=== PATIENT | male | born 1985 | race Caucasian/White ===

== ENCOUNTER 2021-03-15 16:19 | Inpatient (IN) | payer OTHER, MEDICAID, SELFPAY ==
--- NOTE | ~2021-03-15 | XR_ITS ---
EXAMINATION: XR CHEST CLINICAL INFORMATION: Chest and lung pain COMPARISON: None TECHNIQUE: 2 views of the chest were obtained. FINDINGS: The cardiac and mediastinal contours are normal. The patient is rotated to the right. The lungs are well inflated. There is increased attenuation of the left upper and mid lung compared to the right side. This is not appreciated on the lateral view and may be related to patient positioning. The lungs are otherwise clear. There is no pleural effusion or pneumothorax. Bony structures are unremarkable. XR/XR chest 2V IMPRESSION: Well-inflated lungs. Asymmetric increased attenuation of the left upper and midlung, question artifactual related to patient positioning. Otherwise unremarkable exam.
[2021-03-15 16:51] VITALS: BP 120/82; BP 148/73; PULSE 92; PULSE 93; RESP 18; TEMP 36.6; O2SAT 100; BMI 27.6
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
[2021-03-15 17:41] LABS: MANUAL DIFF FLAG NO
[2021-03-15 17:44] LABS: Basophils Percent Auto 0.3 % (0-2); Eosinophils Absolute Auto 0.1 X10*3/uL (0.0-0.4); Eosinophils Percent Auto 1.3 % (0-4); Hematocrit 42.5 % (42-52); Hemoglobin 14.9 g/dl (14.0-18.0); Imm Gran Abs Auto 0.03 X10*3/uL (0.00-0.03); Imm Gran Pct Auto 0.3 % (0.0-0.4); Lymphocytes Percent Auto 20.8 % (20-40); Mean Corpuscular HGB Conc 35.1 g/dl (31.0-36.0); Mean Corpuscular Hemoglobin 30.1 pg (27.0-33.0); Mean Corpuscular Volume 85.9 fL (80-98); Mean Platelet Volume 9.8 fL (9.4-12.4); Monocytes Absolute Auto 0.8 X10*3/uL (0.1-1.2); Monocytes Percent Auto 8.7 % (2-11); Neutrophils Absolute Auto 6.5 X10*3/uL (2.0-8.3); Neutrophils Percent Auto 68.6 % (45-73); Platelet Count 219 X10*3/uL (160-400); Red Blood Count 4.95 X10*6/uL (4.60-5.80); Red Cell Distribution Width 12.3 % (11.0-16.0); White Blood Count 9.5 X10*3/uL (4.8-10.8)
[2021-03-15 18:04] LABS: Amphetamine Screen Urine Not Detected (Not Detect); Barbiturates, Urine Not Detected (Not Detect); Benzodiazepines Screen Urine Not Detected (Not Detect); Cannabinoid Screen Urine Not Detected (Not Detect); Cocaine Screen Urine Not Detected (Not Detect); Opiate Screen Urine Not Detected (Not Detect); Phencyclidine Screen Urine Not Detected (Not Detect)
[2021-03-15 18:12] LABS: Anion Gap 14 (12-20); Blood Urea Nitrogen 10 mg/dL (9-16); Calcium 9.2 mg/dL (8.4-10.2); Carbon Dioxide 23 mmol/L (22-29); Chloride 107 mmol/L (96-108); Creatinine Clr Calc Pharmacy 129.8; Estimated Glomerular Filt Rate > 60; Ethanol < 10 mg/dL; Glucose Random 85 mg/dL (60-115); Potassium 3.5 mmol/L (3.3-5.1); Sodium 140 mmol/L (135-145)
[2021-03-15 18:14] LABS: Acetaminophen LAB < 1 mcg/mL (<30)
[2021-03-15 18:15] LABS: Salicylate < 5.0 mg/dL (15-30)
[2021-03-15 18:23] LABS: COVID-19 Test Negative (Negative); IDNOW Serial# 08D9AD1C
[2021-03-15 18:46] VITALS: BP 103/69; PULSE 76; RESP 14; TEMP 36.5; O2SAT 98
--- NOTE | 2021-03-15 18:50 | PC.NURSE ---
patients mother called and stated 6 weeks ago patient was inpatient at [facility] in past did well on rsiperdal when dc'ed he was on abilify 10mg daily, haldol 5mg at HS, cogentin 1mg at HS, and prozac 60mg daily
--- NOTE | 2021-03-15 21:50 | MHC.CARE ---
[facility] unable to send a clinician to complete evaluation. CARE team contacted [facility] centrifugal supervisor to take over the case and requested that [facility] be notified. This comic writer will meet with pt for assessment shortly.
--- NOTE | 2021-03-16 00:27 | MHC.CARE ---
CARE team evaluation complete, assessment to follow. Disposition is for inpatient psychiatric treatment. ED provider is in agreement with plan of care. Sect 12a is in chart for safety and containment pending facility admission. Pt will be admitted on Sun03/16/21.
--- NOTE | 2021-03-16 00:37 | PC.NURSE ---
Patient in his room, remained isolated in his room, no distress observed/reported, Care team assessed the patient, disposition section 12 inpatient bed search, med rec completed but needs reviewed by psychiatrist in the morning, VSS, will continue to monitor.
[2021-03-16 00:42] VITALS: BP 119/80; PULSE 75; RESP 16; O2SAT 98
[2021-03-16 05:04] LABS: Glucose Urine UA NEG (NEG); Leukocyte Esterase Urine NEG (NEG); Nitrite Urine NEG (NEG); Urine Blood NEG (NEG); Urine Ketones 15 MG/DL (NEG); Urine Protein NEG (NEG-TRACE)
[2021-03-16 05:05] LABS: Appearance Urine CLEAR; Color Urine YELLOW
--- NOTE | 2021-03-16 06:42 | PC.NURSE ---
Patient slept through the night, no distress observed/reported, OOB x 2 bathroom use and back, no behavioral concerns, Care team assessed the patient, [facility] possible [facility] in the morning, VSS, will continue to monitor.
--- NOTE | 2021-03-16 08:14 | PC.NURSE ---
report taken from lisbeth wilks pt here as sec 12 bed search d/t delusions/decompensation/med non compliance. ambulating in [facility] in behavioral control, asking for water. tolerating po w/o issue. wctm for dc needs.
--- NOTE | 2021-03-16 11:58 | PC.NURSE ---
Report received, currently in room, pacing, no behavioral concerns. Awaiting transfer to [facility].
[2021-03-16 14:00] VITALS: BP 125/83; PULSE 92; RESP 18; TEMP 36.8; O2SAT 97
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
--- NOTE | 2021-03-16 18:52 | PC.ADMIT ---
35 year old male admitted from the ED, DX: delusional and paranoid with evidence of thought blocking and disorganized behavior. 15mins safety check. Smoker and drinker, not able to elaborate the last time. Tox negative. Patient appears well groomed, engages well in conversation with short answers. No agitation but appears restless at the time of assessment. Patient denies the urge to harm self or others, denies hallucinations. Patient has past suicide attempt, tend to isolate and avoid interaction. Non-complaint with meds. Speech normal rate, tone, volume, kiara. Patient was calm and cooperative with admission process. Stating when when i get erratic its a sign that i am going to get agitated . Patient reports intermittent acid reflux/abdominal discomfort but denies any issues at this time. Patient found pacing the halls.
[2021-03-16] MEDS: HaloperidoL 5 MG TABLET PO (20:31)
[2021-03-16] MEDS: Benztropine Mesylate 1 MG TABLET PO (20:31)
--- NOTE | 2021-03-17 | ECG_ITS ---
Test Reason : Pt reporting pain in chest/lungs Blood Pressure : / mmHG Vent. Rate : 112 BPM Atrial Rate : 112 BPM P-R Int : 136 ms QRS Dur : 082 ms QT Int : 344 ms P-R-T Axes : 057 -86 075 degrees QTc Int : 469 ms Sinus tachycardia Poor data quality When compared to the previous EKG of Poor data quality in current ECG precludes serial comparison Referred By: Allison Horne Electronically Signed By:Cody Corea
[2021-03-17 09:20] VITALS: PULSE 81; RESP 19; TEMP 36.7; O2SAT 98
--- NOTE | 2021-03-17 11:58 | HO.PSYCHPN ---
Subjective Subjective Date of Service: 03/17/21 Reason For Visit: PSYCHOSIS Interim History: per staff, no notable events overnight. slept. on NOV review, it appears pt took the haldol 5 mg dose at bedtime last night. on interview with pt he was found resting in his bed mid-morning, apparently awake. he denied having taken any medication. he reported he spoke with his parents last night, as a courtesy to let them know he was OK and in the hospital. he reported nothing else had changed for him and there was nothing to request. Mental Status Exam Mental Status Exam Narrative: appropriately dressed in hospital [facility]. no PMA/PMR. minimally cooperative with interview. speech decr in amount, mildly increased in latency. nml prosody and rate. thoughts linear and logical, avoidant of answering questions. did not directly divulge any delusional material. guarded. affect constricted. no SI/HI/AVH expressed. Diagnostics Vital Signs (24Hr): Vital Signs - 24 hr 03/16/21 14:00 03/17/21 09:20 Temperature 98.2 F 98.1 F Pulse Rate 92 81 Respiratory Rate 18 19 Blood Pressure 125/83 Pulse Oximetry 97 98 Body Mass Index 27.6 Labs Results: 03/15/21 17:35 03/15/21 17:35 Labs: Laboratory Results - last 48 hr 03/15/21 03/15/21 03/15/21 17:16 17:16 17:35 WBC RBC Hgb Hct MCV MCH MCHC RDW Plt Count MPV Immature Gran % (Auto) Neut % (Auto) Lymph % (Auto) [place] % (Auto) Eos % (Auto) Baso % (Auto) Lymph # (Auto) [place] # (Auto) Eos # (Auto) Baso # (Auto) Abs Immat Gran (auto) Absolute Neuts (auto) Absolute Nucleated RBC Nucleated RBC % (auto) Sodium Potassium Chloride Carbon Dioxide Anion Gap BUN Creatinine Estim Creat Clear Calc Estimated GFR Random Glucose Calcium Urine Color YELLOW Urine Appearance CLEAR Urine pH 7.0 Ur Specific [place] 1.020 Urine Protein NEG Urine Glucose (UA) NEG Urine Ketones 15 Urine Blood NEG Urine Nitrite NEG Ur Leukocyte Esterase NEG Salicylates Urine Opiates Screen Not Detected Acetaminophen < 1 Ur Barbiturates Screen Not Detected Ur Phencyclidine Scrn Not Detected Ur Amphetamines Screen Not Detected U Benzodiazepines Scrn Not Detected Urine Cocaine Screen Not Detected U Marijuana (THC) Screen Not Detected Ethyl Alcohol COVID-19 ([facility]) COVID-19 [employer] 03/15/21 03/15/21 03/15/21 17:35 17:35 17:35 WBC 9.5 RBC 4.95 Hgb 14.9 Hct 42.5 MCV 85.9 MCH 30.1 MCHC 35.1 RDW 12.3 Plt Count 219 MPV 9.8 Immature Gran % (Auto) 0.3 Neut % (Auto) 68.6 Lymph % (Auto) 20.8 [place] % (Auto) 8.7 Eos % (Auto) 1.3 Baso % (Auto) 0.3 Lymph # (Auto) 2.0 [place] # (Auto) 0.8 Eos # (Auto) 0.1 Baso # (Auto) 0.0 Abs Immat Gran (auto) 0.03 Absolute Neuts (auto) 6.5 Absolute Nucleated RBC 0.000 Nucleated RBC % (auto) 0.0 Sodium 140 Potassium 3.5 Chloride 107 Carbon Dioxide 23 Anion Gap 14 BUN 10 Creatinine 0.85 Estim Creat Clear Calc 129.8 Estimated GFR > 60 Random Glucose 85 Calcium 9.2 Urine Color Urine Appearance Urine pH Ur Specific [place] Urine Protein Urine Glucose (UA) Urine Ketones Urine Blood Urine Nitrite Ur Leukocyte Esterase Salicylates Urine Opiates Screen Acetaminophen Ur Barbiturates Screen Ur Phencyclidine Scrn Ur Amphetamines Screen U Benzodiazepines Scrn Urine Cocaine Screen U Marijuana (THC) Screen Ethyl Alcohol < 10 COVID-19 ([facility]) COVID-19 [employer] 03/15/21 03/15/21 17:35 17:35 WBC RBC Hgb Hct MCV MCH MCHC RDW Plt Count MPV Immature Gran % (Auto) Neut % (Auto) Lymph % (Auto) [place] % (Auto) Eos % (Auto) Baso % (Auto) Lymph # (Auto) [place] # (Auto) Eos # (Auto) Baso # (Auto) Abs Immat Gran (auto) Absolute Neuts (auto) Absolute Nucleated RBC Nucleated RBC % (auto) Sodium Potassium Chloride Carbon Dioxide Anion Gap BUN Creatinine Estim Creat Clear Calc Estimated GFR Random Glucose Calcium Urine Color Urine Appearance Urine pH Ur Specific [place] Urine Protein Urine Glucose (UA) Urine Ketones Urine Blood Urine Nitrite Ur Leukocyte Esterase Salicylates < 5.0 L Urine Opiates Screen Acetaminophen Ur Barbiturates Screen Ur Phencyclidine Scrn Ur Amphetamines Screen U Benzodiazepines Scrn Urine Cocaine Screen U Marijuana (THC) Screen Ethyl Alcohol COVID-19 ([facility]) Negative COVID-19 Clin Com See Note Medications Medications Current Medications Generic Name Dose Route Start Last Admin Trade Name Freq PRN Reason Stop Dose Admin Acetaminophen 650 mg 03/16/21 12:22 Acetaminophen 325 Mg Tablet PO Q6H PRN Headache/Pain Mild Scale (1-3) Al Hydroxide/Mg Hydroxide 30 ml 03/16/21 12:22 Magnesium Hydrox/Alum Hydrox 30 Ml Oral.Susp PO Q6H PRN Heartburn/Nausea Aripiprazole 10 mg 03/17/21 09:00 03/17/21 09:20 Aripiprazole 10 Mg Tablet PO Not Given DAILY FIDEL Benztropine Mesylate 1 mg 03/16/21 21:00 03/16/21 20:31 Benztropine Mesylate 1 Mg Tablet PO 1 mg BEDTIME FIDEL Administration Fluoxetine HCl 60 mg 03/17/21 09:00 03/17/21 09:20 Fluoxetine Hcl 20 Mg Capsule PO Not Given DAILY FIDEL Haloperidol 5 mg 03/16/21 21:00 03/16/21 20:31 Haloperidol 5 Mg Tablet PO 5 mg BEDTIME FIDEL Administration Hydroxyzine HCl 25 mg 03/16/21 12:22 Hydroxyzine Hcl 25 Mg Tablet PO BEDTIME PRN Anxiety Magnesium Hydroxide 30 ml 03/16/21 12:22 Milk Of Magnesia 30 Ml Oral.Susp PO DAILY PRN Constipation Trazodone HCl 50 mg 03/16/21 12:22 Trazodone Hcl 50 Mg Tablet PO BEDTIME PRN Insomnia Allergies Allergies Allergy/AdvReac Type Severity Reaction Status Date / Time olanzapine [OLANZAPINE] Allergy Severe FACIAL Unverified 05/20/20 19:42 SWELLING Assessment & Plan Assessment & Plan (1) Schizoaffective disorder: Status: Acute Code(s): F25.9 - Schizoaffective disorder, unspecified Assessment and Plan: restarted outpatient meds. pt reports he is refusing all medications but HS haldol 5 mg was charted as having been given on 03/16. collect collateral to determine dangerousness. Greater than 50% of the session was spent on counseling and/or coordination of care Reason for contiued inpatient stay Substantial Risk for: inability to function
[2021-03-17] MEDS: diphenhydrAMINE HCL 25 MG TABLET PO (19:21)
[2021-03-17] MEDS: Benztropine Mesylate 1 MG TABLET PO (21:11)
[2021-03-17] MEDS: Cyclobenzaprine HCl 10 MG TABLET PO (21:32)
--- NOTE | 2021-03-18 06:10 | PC.NURSE ---
STIFFNESS- Pt began to c/o stiffness in his neck and legs that gradually spread to other areas of his body. Peyton Mcallister APRN notified of patients complaints. Orders obtained, pt had a chest xray completed and an ekg; provider aware of results. Pt received Benadryl; 25 m po, cogentin 1 mg po. and flexeril 10 mg with no reported effects from him. However other staff including TW, have observed pt to be standing fairly straight without apparant distress.
[2021-03-18 08:20] VITALS: BP 104/79; PULSE 105; RESP 18; TEMP 36.7; O2SAT 97
--- NOTE | 2021-03-18 12:30 | P.PNPSI_ITS ---
Subjective Subjective Date of Service: 03/18/21 Reason For Visit: PSYCHOSIS Interim History: per staff, pt attending groups but not staying for very long. yesterdya c/o muscle stiffness and was given benadryl, cogentin, and flexeril. staff's perception was that he appeared to be affecting the stiffness as he moved differently when he was being observed than when he might reasonably bel ieve he was not being observed. he reported his concern that the stiffness was related to an episode from his home wherein he mixed bleach and windex. slept. on NOV review, it appears pt did NOT take the haldol 5 mg dose at bedtime last night. on interview with pt he was found resting in his bed mid-morning, apparently awake. he stated he was feeling fine and had no questions or complaints for MD. he reported nothing else had changed for him and there was nothing to request. Mental Status Exam Mental Status Exam Narrative: appropriately dressed in hospital allie, hair askew. no PMA/PMR. cooperative with interview. speech decr in amount, mildly increased in latency. nml prosody and rate. thoughts linear and logical, avoidant of answering questions. did not directly divulge any delusional material. guarded. affect constricted. no SI/HI/AVH expressed. Diagnostics Vital Signs (24Hr): Vital Signs - 24 hr 03/18/21 08:20 Temperature 98.1 F Pulse Rate 105 H Respiratory Rate 18 Blood Pressure 104/79 Pulse Oximetry 97 Body Mass Index 27.6 Labs Results: 03/15/21 17:35 03/15/21 17:35 Imaging Radiology Impressions: ITS Impressions Chest X-Ray 03/17/21 19:57 IMPRESSION: Well-inflated lungs. Asymmetric increased attenuation of the left upper and midlung, question artifactual related to patient positioning. Otherwise unremarkable exam. Medications Medications Current Medications Generic Name Dose Route Start Last Admin Trade Name Freq PRN Reason Stop Dose Admin Acetaminophen 650 mg 03/16/21 12:22 Acetaminophen 325 Mg Tablet PO Q6H PRN Headache/Pain Mild Scale (1-3) Al Hydroxide/Mg Hydroxide 30 ml 03/16/21 12:22 Magnesium Hydrox/Alum Hydrox 30 Ml Oral.Susp PO Q6H PRN Heartburn/Nausea Aripiprazole 10 mg 03/17/21 09:00 03/18/21 08:19 Aripiprazole 10 Mg Tablet PO Not Given DAILY FIDEL Benztropine Mesylate 1 mg 03/16/21 21:00 03/17/21 21:39 Benztropine Mesylate 1 Mg Tablet PO Not Given BEDTIME FIDEL Fluoxetine HCl 60 mg 03/17/21 09:00 03/18/21 08:20 Fluoxetine Hcl 20 Mg Capsule PO Not Given DAILY FIDEL Haloperidol 5 mg 03/16/21 21:00 03/17/21 21:39 Haloperidol 5 Mg Tablet PO Not Given BEDTIME FIDEL Hydroxyzine HCl 25 mg 03/16/21 12:22 Hydroxyzine Hcl 25 Mg Tablet PO BEDTIME PRN Anxiety Magnesium Hydroxide 30 ml 03/16/21 12:22 Milk Of Magnesia 30 Ml Oral.Susp PO DAILY PRN Constipation Trazodone HCl 50 mg 03/16/21 12:22 Trazodone Hcl 50 Mg Tablet PO BEDTIME PRN Insomnia Allergies Allergies Allergy/AdvReac Type Severity Reaction Status Date / Time olanzapine [OLANZAPINE] Allergy Severe FACIAL Unverified 05/20/20 19:42 SWELLING Assessment & Plan Assessment & Plan (1) Schizoaffective disorder: Status: Acute Code(s): F25.9 - Schizoaffective disorder, unspecified Assessment and Plan: restarted outpatient meds. pt reports he is refusing all medications but HS haldol 5 mg was charted as having been given on 03/16. has not taken psych meds since then. collect collateral to determine dangerousness. Greater than 50% of the session was spent on counseling and/or coordination of care Reason for contiued inpatient stay Substantial Risk for: harm to self, inability to function and rapid decompensation
[2021-03-18 18:00] VITALS: BP 113/62; PULSE 78; RESP 18; TEMP 36.6; O2SAT 99
[2021-03-18] MEDS: diphenhydrAMINE HCL 25 MG TABLET 50 MG PO (20:41)
[2021-03-19 08:14] VITALS: BP 114/68; PULSE 63; TEMP 37.1; O2SAT 97
--- NOTE | 2021-03-19 12:56 | HO.PSYCHPN ---
Subjective Subjective Date of Service: 03/19/21 Reason For Visit: PSYCHOSIS Subjective Notes: 3 Day Interim History: Patient won't discusse what brought him in and doesn't understand why his 3 day is not already up. He denies si/hi/pscychosis. Pacing in hallway- Medication Compliance: No Attending Groups: No Review of Systems Review of Systems denies any symptoms Mental Status Exam Mental Status Exam Narrative: pacing halls Patient Appearance: Unkempt Patient Orientation: Person, Place and Situation Level of Consciousness: Awake Patient Behavior: Passive and Resistive to Care Mood Description: Constricted Affect Description: Flat Patient Cognition Impaired: No Ability to Follow Directions: Fair Speech Pattern: Clear Hallucinations: None Thought Process: Intact and Goal Oriented Thought Content: positive for Perseveration, positive for Preoccupation and positive for Evasive Abnormal Motor Activity Signs and Symptoms: Restlessness Judgement: Poor Diagnostics Vital Signs (24Hr): Vital Signs - 24 hr 03/18/21 18:00 03/19/21 08:14 Temperature 97.9 F 98.7 F Pulse Rate 78 63 Respiratory Rate 18 Blood Pressure 113/62 114/68 Pulse Oximetry 99 97 Body Mass Index 27.6 also doubt this is accurate thin/ Labs Results: 03/15/21 17:35 03/15/21 17:35 Imaging Radiology Impressions: ITS Impressions Chest X-Ray 03/17/21 19:57 IMPRESSION: Well-inflated lungs. Asymmetric increased attenuation of the left upper and midlung, question artifactual related to patient positioning. Otherwise unremarkable exam. Medications Medications Current Medications Generic Name Dose Route Start Last Admin Trade Name Freq PRN Reason Stop Dose Admin Acetaminophen 650 mg 03/16/21 12:22 Acetaminophen 325 Mg Tablet PO Q6H PRN Headache/Pain Mild Scale (1-3) Al Hydroxide/Mg Hydroxide 30 ml 03/16/21 12:22 Magnesium Hydrox/Alum Hydrox 30 Ml Oral.Susp PO Q6H PRN Heartburn/Nausea Aripiprazole 10 mg 03/17/21 09:00 03/19/21 09:15 Aripiprazole 10 Mg Tablet PO Not Given DAILY FIDEL Benztropine Mesylate 1 mg 03/16/21 21:00 03/18/21 20:30 Benztropine Mesylate 1 Mg Tablet PO Not Given BEDTIME FIDEL Diphenhydramine HCl 50 mg 03/18/21 20:01 03/18/21 20:41 Diphenhydramine Hcl 25 Mg Tablet PO 50 mg BEDTIME [id number] PRN Administration Insomnia Fluoxetine HCl 60 mg 03/17/21 09:00 03/19/21 09:15 Fluoxetine Hcl 20 Mg Capsule PO Not Given DAILY FIDEL Haloperidol 5 mg 03/16/21 21:00 03/18/21 20:31 Haloperidol 5 Mg Tablet PO Not Given BEDTIME FIDEL Magnesium Hydroxide 30 ml 03/16/21 12:22 Milk Of Magnesia 30 Ml Oral.Susp PO DAILY PRN Constipation Trazodone HCl 50 mg 03/16/21 12:22 Trazodone Hcl 50 Mg Tablet PO BEDTIME PRN Insomnia Allergies Allergies Allergy/AdvReac Type Severity Reaction Status Date / Time olanzapine [OLANZAPINE] Allergy Severe FACIAL Unverified 05/20/20 19:42 SWELLING Assessment & Plan Assessment & Plan (1) Schizoaffective disorder: Status: Acute Code(s): F25.9 - Schizoaffective disorder, unspecified Assessment and Plan: continuing to refuse medications wants to be dced won't say why he went to police station - or what was discussed there after which he was sec 12 to hospital Greater than 50% of the session was spent on counseling and/or coordination of care Reason for contiued inpatient stay Substantial Risk for: inability to function and rapid decompensation
[2021-03-19 18:00] VITALS: BP 121/77; PULSE 67; RESP 16; TEMP 36.4; O2SAT 94
[2021-03-19] MEDS: diphenhydrAMINE HCL 25 MG TABLET 50 MG PO (21:01)
[2021-03-20] MEDS: diphenhydrAMINE HCL 25 MG TABLET 50 MG PO (01:31)
[2021-03-20 06:00] VITALS: BP 128/86; PULSE 82; RESP 16; TEMP 36.4; O2SAT 97
--- NOTE | 2021-03-20 13:03 | HO.PSYCHPN ---
Subjective Subjective Date of Service: 03/20/21 Reason For Visit: PSYCHOSIS Subjective Notes: Section 12B Healthcare Proxy: No Guardianship: No (hx of recurrently going off medications on dc) Medical Problems Affecting Mental Status: No Interim History: 35 WM who is angry and persistent though in physical control about what he sees as his custodial here- says he won't discussed police station visit and doesn't know why he is being held for that- on review of record - patient almost killed himself 3 months ago and since dc has stopped meds, not followed up and stayed in his apartment, not communicating with family, In the time he has been on unit has eaten , slept and paced on unit. Kept to himself showed no aggression and denied all symptoms- Would like to talk to ombudsman to complain today, wants access to his vinyl flooring installer today- but mostly will not give up rationalizing with me how I am illegally holding him hear as he has not shown any psychosis since arrival - Demanding dc today. Explaired to patient that he was now on 12b and that he would be given a vinyl flooring installer prior to court- he is angry about the time this will take. Medication Compliance: No (did take benadryl for sleep last night) Side effects from medications: No Attending Groups: No Mental Status Exam Mental Status Exam Patient Appearance: Appropriate Patient Orientation: Person, Place, Time and Situation Level of Consciousness: Awake Patient Behavior: Guarded, Restless, Anxious, Resistive to Care and Isolative Behavior Comments: refuses to let matter go and was not letting me move to other patients- nursing came to speak with patient, he continued to pace near nursing desk as provider was there- Mood Description: Angry Affect Description: Angry (feels it is unfair and illegal that he is here- held when he wants to be dced) Patient Cognition Impaired: No Ability to Follow Directions: Fair Speech Pattern: Perseverating and Rapid Memory Description: Intact Hallucinations: None (denying) Delusions: Present (? will not discuss police station - on record says he thinks he commited a crime) Thought Process: Linear Thought Content: positive for Perseveration (will only discuss being dced from hospital and his rights) Abnormal Motor Activity Signs and Symptoms: Muscle Rigidity and Restlessness Judgement: Poor Diagnostics Vital Signs (24Hr): Vital Signs - 24 hr 03/19/21 18:00 03/20/21 06:00 Temperature 97.5 F 97.6 F Pulse Rate 67 82 Respiratory Rate 16 16 Blood Pressure 121/77 128/86 Pulse Oximetry 94 97 Body Mass Index 27.6 Labs Results: 03/15/21 17:35 03/15/21 17:35 Imaging Radiology Impressions: ITS Impressions Chest X-Ray 03/17/21 19:57 IMPRESSION: Well-inflated lungs. Asymmetric increased attenuation of the left upper and midlung, question artifactual related to patient positioning. Otherwise unremarkable exam. Medications Medications Current Medications Generic Name Dose Route Start Last Admin Trade Name Freq PRN Reason Stop Dose Admin Acetaminophen 650 mg 03/16/21 12:22 Acetaminophen 325 Mg Tablet PO Q6H PRN Headache/Pain Mild Scale (1-3) Al Hydroxide/Mg Hydroxide 30 ml 03/16/21 12:22 Magnesium Hydrox/Alum Hydrox 30 Ml Oral.Susp PO Q6H PRN Heartburn/Nausea Aripiprazole 10 mg 03/17/21 09:00 03/20/21 08:44 Aripiprazole 10 Mg Tablet PO Not Given DAILY FIDEL Benztropine Mesylate 1 mg 03/16/21 21:00 03/19/21 21:09 Benztropine Mesylate 1 Mg Tablet PO Not Given BEDTIME FIDEL Diphenhydramine HCl 50 mg 03/18/21 20:01 03/20/21 01:31 Diphenhydramine Hcl 25 Mg Tablet PO 50 mg BEDTIME [id number] PRN Administration Insomnia Fluoxetine HCl 60 mg 03/17/21 09:00 03/20/21 08:44 Fluoxetine Hcl 20 Mg Capsule PO Not Given DAILY FIDEL Haloperidol 5 mg 03/16/21 21:00 03/19/21 21:09 Haloperidol 5 Mg Tablet PO Not Given BEDTIME FIDEL Magnesium Hydroxide 30 ml 03/16/21 12:22 Milk Of Magnesia 30 Ml Oral.Susp PO DAILY PRN Constipation Trazodone HCl 50 mg 03/16/21 12:22 Trazodone Hcl 50 Mg Tablet PO BEDTIME PRN Insomnia Allergies Allergies Allergy/AdvReac Type Severity Reaction Status Date / Time olanzapine [OLANZAPINE] Allergy Severe FACIAL Unverified 05/20/20 19:42 SWELLING Assessment & Plan Assessment & Plan (1) Schizoaffective disorder: Status: Acute Code(s): F25.9 - Schizoaffective disorder, unspecified Assessment and Plan: continuing to refuse medications wants to be dced won't say why he went to police station - or what was discussed there after which he was sec 12 to hospital hx recurrent hospitalizations , hx refusing medications, no insight and guarded but no clear psychosis evidence except he refuses to discuss police station- which I suspect if he opened up about his fear he commited a crime would unhinge his control. Greater than 50% of the session was spent on counseling and/or coordination of care Reason for contiued inpatient stay Substantial Risk for: inability to function, rapid decompensation and other
[2021-03-20 16:28] VITALS: BP 117/87; PULSE 68; RESP 16; TEMP 36.8; O2SAT 98
[2021-03-21 08:34] VITALS: BP 116/83; PULSE 99; RESP 18; TEMP 36.5; O2SAT 97
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
--- NOTE | 2021-03-21 11:47 | PC.NURSE ---
Pt aware and ready for discharge. Pt denies SI/HI, pt reports mood as good, states he is ready to go home. Pt declined to allow staff to make follow up appointments with his PCP, states he will make an appointment when he gets home. PT declined referal for therapy/psychiatric follow up, pt was given number for [facility] to contact when he is ready.
== END 2021-03-21 11:47 | disposition home or self-care (01) | DRG 750 ==
LOC: HO.ED 17:49 → HO.PADLT16 03-16 12:01
PROVIDERS: Nurse Practitioner Family; Admitting Provider Psychiatry & Neurology Psychiatry; Emergency Provider Emergency Medicine Emergency Medical Services; PCP Hospitalist; Visit Provider Psychiatry & Neurology Psychiatry
DX: F25.9 Schizoaffective disorder, unspecified (principal); Z91.14 Patient's other noncompliance with medication regimen; Z20.822 Contact with and (suspected) exposure to COVID-19; Z87.891 Personal history of nicotine dependence; Z79.899 Other long term (current) drug therapy
CPT/HCPCS: 36415; 71046; 80048; 80143; 80179; 80307; 81003; 82077; 85025; 87635; 93005; 99285; Q0163

== ENCOUNTER 2021-04-02 08:38 | Emergency (ER) | payer MEDICAID, SELFPAY ==
--- NOTE | 2021-04-02 08:41 | ED.PSYCH ---
HPI - Psych General Chief Complaint: Psychiatric Symptoms Stated Complaint: PSYCH EVAL Time Seen by Provider: 04/02/21 08:41 Source: patient and EMS Mode of arrival: EMS Limitations: no limitations History of Present Illness HPI Narrative: 35 yo male with hx of schizoaffective disorder states he is not on medications he went to the police departmetn today to confess crimes he did not commit and then feels he is being watched, brought to ED for psychiatric evaluation MD complaint: other (delusions) Onset (ago): day(s) Duration: constant History of same: Yes Relieving factors: none Exacerbating factors: none Context: not taking psychiatric medications Associated psychiatric symptoms: none Associated symptoms: denies other symptoms Treatments prior to arrival: none Related Data Home Medications Medication Instructions Recorded Confirmed aripiprazole 10 mg tablet 1 tab PO DAILY 03/15/21 04/02/21 benztropine 1 mg tablet 1 tab PO BEDTIME 03/15/21 04/02/21 fluoxetine 20 mg capsule 3 cap PO DAILY 03/15/21 04/02/21 haloperidol 5 mg tablet 1 tab PO BEDTIME 03/15/21 04/02/21 Allergies Allergy/AdvReac Type Severity Reaction Status Date / Time olanzapine [OLANZAPINE] Allergy Severe FACIAL Unverified 05/20/20 19:42 SWELLING Review of Systems Review of Systems: Constitutional : No Fever, No Chills ENT/Mouth : No Ear Pain, No Nasal Congestion, No sore throat Eyes: No Eye Pain, No Swelling, No Redness Cardiovascular : No Chest Pain, No SOB Respiratory : No Cough, No Sputum, No Dyspnea Gastrointestinal : No Nausea, No Vomiting, No Diarrhea, No Hematochezia, No Melena Genitourinary : No Dysuria, No Urinary Frequency, No Hematuria Musculoskeletal : No Myalgias Skin : No Skin Lesions, No rash Neuro : No Weakness, No Numbness, No Paresthesias, No Dizziness, No Headache Psych : positive Anxiety, positive Depression, no SI/HI Heme/Lymph: No Lymphadenopathy Endocrine : No Polyuria, No Polydipsia All other systems reviewed and are negative PMF Past Medical History Medical History Schizoaffective disorder Social History Social History Household Members: None Household Members Other:: 0 Housing: Apartment Do you presently have visiting nurse or other home services: No Unable to assess alcohol history related to: Unknown Patient Tobacco Use Status: Former Tobacco user Second Hand Smoke Exposure: No Substance Use Type: Marijuana Advance Directives: No Advance Directives Information Provided: No service: No Sexual orientation: Don't Know Physical Exam Vital Signs: Vital Signs: Last Vital Signs Temp 97.9 F 04/02/21 08:46 Pulse 93 04/02/21 08:46 Resp 16 04/02/21 08:46 BP 140/95 H 04/02/21 08:46 Pulse Ox 99 04/02/21 08:46 Body Mass Index 25.2 Appearance: Alert. Oriented X3. No acute distress. Eyes: Pupils equal, round and reactive to light. ENT: Pharynx normal. Neck: Normal inspection. Neck supple. CVS: Normal heart rate and rhythm. Pulses normal. Respiratory: No respiratory distress. Breath sounds normal. Abdomen: Soft and nontender. Skin: Skin warm and dry. Normal skin color. Normal skin turgor. Extremities: No lower extremity edema. No calf ttp Neuro: Oriented X 3. No motor deficit. No sensory deficit. CN 2-12 grossly intact Psych: seems to be responding to internal stimuli at times, no SI/HI, will not elaborate on comments he made at police department Course Course Course Narrative: Physician observation started at 1022am Patient placed in physician observation because the patient needed more time for [facility]N to evaluate the need for inpatient psychiatry. At the time observation was started the patient's vitals were stable, patient is alert and oriented appears to be responding to internal stimuli, Neuro: nonfocal, CV RRR, Lungs clear. Placed on section 12. signed out pending placement Discharge Plan Discharge Clinical Impression: Schizoaffective disorder Qualifiers: Schizoaffective disorder type: unspecified Qualified Code(s): F25.9 - Schizoaffective disorder, unspecified Prescriptions: No Action haloperidol 5 mg tablet 1 tab PO BEDTIME RF: 0 benztropine 1 mg tablet 1 tab PO BEDTIME RF: 0 fluoxetine 20 mg capsule 3 cap PO DAILY RF: 0 aripiprazole 10 mg tablet 1 tab PO DAILY RF: 0
[2021-04-02 08:46] VITALS: BP 140/90; BP 140/95; PULSE 90; PULSE 93; RESP 16; TEMP 36.6; O2SAT 97; O2SAT 99; BMI 25.2
[2021-04-02 09:22] LABS: MANUAL DIFF FLAG NO
[2021-04-02 09:23] LABS: Basophils Absolute Auto 0.1 X10*3/uL (0.0-0.2); Basophils Percent Auto 0.7 % (0-2); Eosinophils Absolute Auto 0.1 X10*3/uL (0.0-0.4); Eosinophils Percent Auto 1.7 % (0-4); Hematocrit 47.5 % (42-52); Hemoglobin 16.5 g/dl (14.0-18.0); Imm Gran Abs Auto 0.02 X10*3/uL (0.00-0.03); Imm Gran Pct Auto 0.3 % (0.0-0.4); Lymphocytes Absolute Auto 1.5 X10*3/uL (1.2-4.9); Lymphocytes Percent Auto 19.8 % (20-40); Mean Corpuscular HGB Conc 34.7 g/dl (31.0-36.0); Mean Corpuscular Hemoglobin 29.9 pg (27.0-33.0); Mean Corpuscular Volume 86.1 fL (80-98); Mean Platelet Volume 9.8 fL (9.4-12.4); Monocytes Absolute Auto 0.7 X10*3/uL (0.1-1.2); Neutrophils Absolute Auto 5.2 X10*3/uL (2.0-8.3); Neutrophils Percent Auto 68.5 % (45-73); Platelet Count 256 X10*3/uL (160-400); Red Blood Count 5.52 X10*6/uL (4.60-5.80); Red Cell Distribution Width 12.6 % (11.0-16.0); White Blood Count 7.6 X10*3/uL (4.8-10.8)
[2021-04-02 09:26] LABS: COVID-19 Test Negative (Negative)
[2021-04-02 09:57] LABS: Amphetamine Screen Urine Not Detected (Not Detect); Barbiturates, Urine Not Detected (Not Detect); Benzodiazepines Screen Urine Not Detected (Not Detect); Cannabinoid Screen Urine Not Detected (Not Detect); Cocaine Screen Urine Not Detected (Not Detect); Opiate Screen Urine Not Detected (Not Detect); Phencyclidine Screen Urine Not Detected (Not Detect)
[2021-04-02 09:57] LABS: Alanine Aminotransferase 14 U/L (0-40); Albumin Level 4.5 g/dL (3.5-5.0); Alkaline Phosphatase 82 U/L (39-117); Anion Gap 12 (12-20); Aspartate Amino Transferase 15 U/L (5-37); Bilirubin Direct 0.5 mg/dL (0.0-0.5); Bilirubin Total 1.6 mg/dL (0.0-1.0); Blood Urea Nitrogen 10 mg/dL (9-16); Calcium 9.6 mg/dL (8.4-10.2); Carbon Dioxide 27 mmol/L (22-29); Chloride 106 mmol/L (96-108); Creatinine Clr Calc Pharmacy 121.2; Estimated Glomerular Filt Rate > 60; Glucose Random 119 mg/dL (60-115); Potassium 3.6 mmol/L (3.3-5.1); Sodium 141 mmol/L (135-145); Total Protein 7.2 g/dL (6.5-8.0)
--- NOTE | 2021-04-02 10:57 | PC.NURSE ---
patient frequently pacing unit and at one point went in wrong room (room he was in 2 weeks ago) t/w asked patient if he'd like a medicine to help him relax and he declined stating i just have a lot on my mind, i don't want any medicine
--- NOTE | 2021-04-02 12:38 | PC.NURSE ---
patient paces in room and in unit wrapped in blanket, head in hands sometimes, sometimes arms crossed, made two loud yelp noises in room. t/w approached patient and redirected gently requesting change in volume if possible. patient a few minutes later was approached and t/w offered medicine, client declined
--- NOTE | 2021-04-02 20:54 | PC.NURSE ---
Patient is pacing in hallway without visible restlessness, in and out of his room multiple times, expressing need well, behavior appropriate and calm, coherent, refused HS medication by stating I am ok without meds, will continue to monitor.
[2021-04-03 01:52] VITALS: BP 133/87; PULSE 93; RESP 16; TEMP 36.4; O2SAT 97
--- NOTE | 2021-04-03 06:47 | PC.NURSE ---
Patient had over all 4 hours of sleep, pacing/snacking, no behavior concerns, thought process disorganized, refusing meds, attempted to educate patient about importance of medication, VSS, no distress observed/reported, will continue to monitor.
--- NOTE | 2021-04-03 07:48 | PC.NURSE ---
patient was awake upon my arrival, periodically pacing the unit, wrapped in a cloth blanket. patient appears in no acute distress
--- NOTE | 2021-04-03 15:51 | PC.NURSE ---
exhibits thought blocking, guarded. patient asks t/w why do you respond in that way? to request for arie anam its something i can do
[2021-04-03 16:53] VITALS: BP 142/93; PULSE 80; RESP 16; TEMP 36.3; O2SAT 96
--- NOTE | 2021-04-03 20:44 | PC.NURSE ---
Patient calm and quiet, mood pleasant, refused his medication, no distress observed/reported, VSS, will continue to monitor.
[2021-04-04 03:01] VITALS: BP 126/95; PULSE 73; RESP 18; TEMP 35.8; O2SAT 95
--- NOTE | 2021-04-04 05:17 | PC.NURSE ---
Patient slept 5 hours from 9p to 2a, pacing in hallway while awake in calm and non-disruptive manner, patient continues refusing his medication, VSS, no distress observed/reported, behavior appropriate, appetite good, hydrating well, elimination intact, disposition remains same, section 12 inpatient bed search, will continue to monitor.
--- NOTE | 2021-04-04 07:15 | PC.NURSE ---
patient was awake upon t/w's arrival to unit, patient remains pacing the floor at present, patient appears in no acute distress
[2021-04-04 07:47] VITALS: BP 123/93; PULSE 77; RESP 18; TEMP 36.5; O2SAT 99
--- NOTE | 2021-04-04 09:33 | ECG_ITS ---
Test Reason : MEDICAL CLEARANCE Blood Pressure : / mmHG Vent. Rate : 067 BPM Atrial Rate : 067 BPM P-R Int : 150 ms QRS Dur : 092 ms QT Int : 402 ms P-R-T Axes : 058 079 057 degrees QTc Int : 424 ms Normal sinus rhythm Normal ECG When compared with ECG of 17-MAR-2021 22:08, Vent. rate has decreased BY 45 BPM Referred By: Dolores Andre Electronically Signed By:Cody Corea
--- NOTE | 2021-04-04 10:36 | PC.NURSE ---
clients mom called and patient declined to talk to her. patient soon thereafter asked if the mother gave her name, which t/w told patient
--- NOTE | 2021-04-04 12:26 | PC.NURSE ---
Pt accepted to [facility] - awaiting nurse to nurse report and transfer
--- NOTE | 2021-04-04 12:50 | PC.NURSE ---
Pt continues to pace, attempted to redirect, unsuccessful, offered and declined PRN medications. Pt presents w/ flat affect, polite, vague. Awaiting nurse to nurse and transfer
--- NOTE | 2021-04-04 13:52 | PC.NURSE ---
per ULISES pt going to Dr. Magana on M3 room 319-1
--- NOTE | 2021-04-04 14:07 | PC.NURSE ---
Pt declined lunch, stated I'm not hungry right now, no thanks , offered other options, po fluids encouraged but declined.
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
--- NOTE | 2021-04-04 14:34 | PC.NURSE ---
Per Fouzia from the CARE team and Dr. Magana pt to be discharged home. Awaiting paperwork.
--- NOTE | 2021-04-04 14:43 | PC.NURSE ---
pending d/c. t/w expressed concern to CARE team Laxmi regarding d/c - pt is paranoid, pacing since 2 am and has no PO intake since this RN arrival at 11.
--- NOTE | 2021-04-04 15:17 | PC.NURSE ---
Pt noted to be pacing about the pod, eyeing the exit. Affect guarded. Declining food and drink. Awaiting dispo at this time as there is a question of d/c versus admission.
--- NOTE | 2021-04-04 16:19 | MHC.CARE ---
CARE Team is requested to initiate additional collateral contact with pt's family, as psychiatry is in the process of determining if pt meets criteria for sect 12b. Per pt's mother, last January pt was caught driving to [place] in order to purchase a firearm and attempt suicide, however, he was intercepted and hospitalized. Mother reports that pt has been admitted to inpt psych 10x in the past two years, every 6-8 weeks or so. She states, my son is in a deep delusion and he thinks the government is after him. Mother feels that pt should be admitted, but does not have any recent information relating to imminent risk to share. She states that pt has been extremely isolated and has not been answering phone calls. She states that he turned off his phone and stopped driving his car due to his delusional thinking. Family has reportedly spoken with a shore hand dredge or barge and would like to pursue guardianship and berman order, however they do not currently have the correct documentation from psychiatry. Mother reports that pt is non compliant with medication and does not follow up with outpatient providers. She reports that pt is typically stable for 4-6 weeks post inpt discarge, but then begins to decompensate. CARE team communicates this information to Dr. Magana, who met with pt earlier today. Per Dr. Magana, pt does not meet criteria for involuntary admission and julian therefore be discharged home. CARE Team met with pt earlier today and offered referral to outpatient providers, which pt declined.
--- NOTE | 2021-04-04 16:25 | MHC.CARE ---
Per psychiatrist Dr. Yaw Magana-- pt does not require inpt psychiatric admission at this time and is not a candidate for involuntary admission due to his low level of risk for harm to self or others at this time. Cleared for discharge home. Family updated. [facility] updated re: authorization for inpt psychiatric admission needing to be cancelled.
== END 2021-04-04 16:12 | disposition home or self-care (01) ==
PROVIDERS: Emergency Provider Emergency Medicine; PCP Hospitalist
DX: F25.9 Schizoaffective disorder, unspecified (principal); F22 Delusional disorders; F41.9 Anxiety disorder, unspecified; F32.9 Major depressive disorder, single episode, unspecified; Z79.899 Other long term (current) drug therapy; Z20.822 Contact with and (suspected) exposure to COVID-19
CPT/HCPCS: 36415; 80048; 80076; 80307; 85025; 87635; 93005; 99284; 99285

== ENCOUNTER 2021-04-06 10:19 | Inpatient (IN) | payer OTHER, SELFPAY ==
--- NOTE | 2021-04-06 | ECG_ITS ---
Test Reason : MEDICAL CLEAR Blood Pressure : / mmHG Vent. Rate : 071 BPM Atrial Rate : 071 BPM P-R Int : 154 ms QRS Dur : 086 ms QT Int : 398 ms P-R-T Axes : 068 084 067 degrees QTc Int : 432 ms Normal sinus rhythm Normal ECG When compared with ECG of 04-APR-2021 10:06, No significant change was found Referred By: Jeyson Solomon Electronically Signed By:Cody Corea
[2021-04-06 10:20] VITALS: BP 118/89; PULSE 114; RESP 17; TEMP 36.4; O2SAT 100; BMI 22.3
[2021-04-06 10:36] VITALS: BMI 24.5
--- NOTE | 2021-04-06 11:00 | ED_ITS ---
HPI - Psych General Chief Complaint: Psychiatric Symptoms Stated Complaint: crisis Time Seen by Provider: 04/06/21 10:52 Source: patient History of Present Illness HPI Narrative: This is a 35-year-old male who is a poor historian. The patient had apparently recently been admitted psychiatrically, and was discharged. The patient returned today and states that he has thought about killing himself for a few days. The patient often will not complete his sentences and therefore it is hard to get complete information from. He states that he was ?going to stop...? but does not finish the sentence. The patient denies wanting to hurt anybody else. He denies hearing any voices. He does admit to a prior history of suicide attempt but will not say the manner of the attempt. Denies any physical complaints such as headache or chest pain. Denies any known psy chiatric diagnosis and denies any significant past medical problems. Related Data Home Medications Medication Instructions Recorded Confirmed aripiprazole 10 mg tablet 1 tab PO DAILY 03/15/21 04/06/21 benztropine 1 mg tablet 1 tab PO BEDTIME 03/15/21 04/06/21 fluoxetine 20 mg capsule 3 cap PO DAILY 03/15/21 04/06/21 haloperidol 5 mg tablet 1 tab PO BEDTIME 03/15/21 04/06/21 Allergies Allergy/AdvReac Type Severity Reaction Status Date / Time olanzapine [OLANZAPINE] Allergy Severe FACIAL Verified 04/06/21 10:20 SWELLING Review of Systems Review of Systems: Yes Other (Limited due to patient's psychiatric condition) Constitutional: Constitutional: Denies fever(s) and Denies headache(s) ENT: Denies headache(s) Cardiovascular: Cardiovascular: Denies chest pain Gastrointestinal: Gastrointestinal: Denies abdominal pain Neurologic: Denies headache(s) and Denies Sensory deficit (Neuro) Psychiatric: Psychiatric: Reports homicidal ideation [facility] Past Medical History Medical History Schizoaffective disorder Social History Social History Household Members: None Household Members Other:: 0 Housing: Apartment Do you presently have visiting nurse or other home services: No Unable to assess alcohol history related to: Unknown Patient Tobacco Use Status: Former Tobacco user Second Hand Smoke Exposure: No Substance Use Type: Marijuana Advance Directives: Yes Advance Directives Information Provided: Yes Advance Directives on File: No Healthcare Proxy: No Guardian: No service: No Sexual orientation: Don't Know Physical Exam Vital Signs: Vital Signs: Last Vital Signs Temp 97.6 F 04/06/21 10:20 Pulse 109 H 04/06/21 12:29 Resp 16 04/06/21 12:29 BP 119/77 04/06/21 12:29 Pulse Ox 95 04/06/21 12:29 Body Mass Index 24.5 Const: General: cooperative, no acute distress, alert and anxious Nutritional Appearance: average body habitus Orientation/consciousness: patient oriented x3 HENMT: Head: Yes normal to inspection Eyes: General: appearance normal, both eyes and all related structures Eyelids: Yes eyelids normal Conjunctivae: conjunctivae normal Pupils: Equal, round and reactive pupils present Neck: Neck: Yes normal visual inspection and Yes supple Chest: Chest palpation & inspection: normal inspection of the chest Resp: Effort & Inspection: normal respiratory effort and able to speak in complete sentences Auscultation: clear to auscultation bilaterally Cardio: Rate: regular rate Rhythm: regular rhythm Heart sounds: S1 normal heart sound present, S2 normal heart sound present, no gallops, no murmurs and no rubs GI: Palpation (GI): Soft to palpation, nontender and Other GI palpation findings present (Non-distended) Auscultation: normal bowel sounds Skin: General skin exam: no rashes or lesions noted Neuro: General: patient oriented x3, no focal motor deficits and CN's II-XI intact bilaterally Cranial nerves: Yes Equal, round and reactive pupils pres ent Cognition (Neuro): normal cognition Motor exam (neuro): 5/5 motor strength present throughout Sensory Exam: No Sensory deficit (Neuro) Extrem: General: Yes normal to inspection and Yes no pedal edema Psych: Mental Status: other (Patient often stops mid-sentence, seems internally preoccupied) Speech and movement: Clear speech present Affect: normal affect, Sad affect present and Anxious affect present Attitude: cooperative MDM - Psych MDM Narrative Medical decision making narrative: Patient with suicidal ideation, inability complete sentences, appears debilitated by his psychiatric disease, is to be admitted to Psychiatry. Lab Data Labs: Lab Results 04/06/21 04/06/21 Range/Units 11:09 13:16 Urine Opiates Screen Not Detected (Not Detect) Ur Barbiturates Screen Not Detected (Not Detect) Ur Phencyclidine Scrn Not Detected (Not Detect) Ur Amphetamines Screen Not Detected (Not Detect) U Benzodiazepines Scrn Not Detected (Not Detect) Urine Cocaine Screen Not Detected (Not Detect) U Marijuana (THC) Screen Not Detected (Not Detect) COVID-19 ([facility]) Negative (Negative) COVID-19 Clin Com See Note Discharge Plan Discharge Clinical Impression: Schizoaffective disorder, Suicidal ideation Patient Disposition: Admitted As Inpatient
--- NOTE | 2021-04-06 11:14 | PC.NURSE ---
patient soon after meeting with doctor fervently repeatedly struck head on lockers and end of unit. patient stopped and walked self to room and allowed examiniation reddened area approximately dime-sized
[2021-04-06] MEDS: LORazepam 1 MG TABLET 2 MG PO (11:20)
[2021-04-06] MEDS: HaloperidoL 5 MG TABLET PO (11:20)
[2021-04-06 11:57] LABS: Amphetamine Screen Urine Not Detected (Not Detect); Barbiturates, Urine Not Detected (Not Detect); Benzodiazepines Screen Urine Not Detected (Not Detect); Cannabinoid Screen Urine Not Detected (Not Detect); Cocaine Screen Urine Not Detected (Not Detect); Opiate Screen Urine Not Detected (Not Detect); Phencyclidine Screen Urine Not Detected (Not Detect)
[2021-04-06 12:00] VITALS: BP 114/74; PULSE 84; RESP 15; O2SAT 94
[2021-04-06] MEDS: Ziprasidone Mesylate 20 MG VIAL 10 MG IM (12:11)
[2021-04-06 12:29] VITALS: BP 119/77; PULSE 109; RESP 16; O2SAT 95
[2021-04-06 13:36] LABS: COVID-19 Test Negative (Negative)
--- NOTE | 2021-04-06 16:27 | MHC.CARE ---
Patient assessed by CARE Team and determined to need inpatient psychiatric hospitalization
--- NOTE | 2021-04-06 18:28 | PC.NURSE ---
patient appears to remain asleep at present, awaits ekg and transfer to inpatient floor
--- NOTE | 2021-04-06 21:05 | PC.NURSE ---
Patient is s/p chemical restraint, sleeping most of the time, compliant with EKG, no distress observed/reported, respiration +/=/non-labored bilaterally, awaiting M5 admission, RN to RN completed, will continue to monitor.
[2021-04-06 22:40] VITALS: BP 100/71; PULSE 120; TEMP 36.1; O2SAT 96
--- NOTE | 2021-04-06 23:34 | PC.ADMIT ---
Pt is a 35 year old male who came into [facility] after reporting SI and increased depression. Self presented reported that he ran here to the ED. Had self harming behavior in the ED by banging his head on the lockers in the Pod. Delusional, appears to be responding to internal stimuli and very short in responses yes or no . Denies all psychiatric symptoms. Tox screen - negative. CV signed. Medications ordered and obtained by the subcontract administrator MD. 15 minute checks. In behavioral control since arrival on the unit.
--- NOTE | 2021-04-07 06:23 | PC.NURSE ---
0630: PT HEAD BANGING ON WALL OUTSIDE OF GROUP ROOM B. DIFFICULT TO REDIRECT. PT BECOMES IRRITATED WHEN SUGGESTIONS ARE MADE BY STAFF ALTERNATIVES TO RUNNING IN HALLWAY AND HEAD BANGING. REFUSING ANY MEDICATIONS. PT OBSERVER IN ATTENDANCE FOR PT SAFETY.
[2021-04-07 06:58] VITALS: BP 107/71; PULSE 132; RESP 18; TEMP 35.9; O2SAT 97
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
[2021-04-07] MEDS: LORazepam 1 MG TABLET 2 MG PO (10:33)
[2021-04-07] MEDS: HaloperidoL 5 MG TABLET PO (10:34)
--- NOTE | 2021-04-07 16:58 | PM.PSYDC ---
DS: Providers Provider Date of admission: 04/06/21 21:38 Primary care physician: Unknown Physician DS: Diagnosis Discharge Diagnosis (1) Schizoaffective disorder: Status: Acute DS: Medications Discharge Medications Home Medications: Home Medications Medication Instructions Recorded Confirmed aripiprazole 10 mg tablet 1 tab PO DAILY 03/15/21 04/06/21 benztropine 1 mg tablet 1 tab PO BEDTIME 03/15/21 04/06/21 fluoxetine 20 mg capsule 3 cap PO DAILY 03/15/21 04/06/21 haloperidol 5 mg tablet 1 tab PO BEDTIME 03/15/21 04/06/21 Data Data Completed and Pending Completed studies during hospitalization [Text1]: 04/06/21 04/06/21 11:09 13:16 Urine Opiates Screen Not Detected Ur Barbiturates Screen Not Detected Ur Phencyclidine Scrn Not Detected Ur Amphetamines Screen Not Detected U Benzodiazepines Scrn Not Detected Urine Cocaine Screen Not Detected U Marijuana (THC) Screen Not Detected COVID-19 ([facility]) Negative COVID-19 Clin Com See Note DS: Summary Time Spent with Patient Time attestation: Total time spent providing and/or coordinating discharge services: Discharge Plan Discharge Referrals: Physician,Unknown [Primary Care Provider] - 1 Week Discharge Medications: No Action haloperidol 5 mg tablet 1 tab PO BEDTIME RF: 0 benztropine 1 mg tablet 1 tab PO BEDTIME RF: 0 fluoxetine 20 mg capsule 3 cap PO DAILY RF: 0 aripiprazole 10 mg tablet 1 tab PO DAILY RF: 0
[2021-04-07 18:00] VITALS: BP 110/68; PULSE 104; TEMP 36.1
[2021-04-08] MEDS: FLUoxetine HCl 20 MG CAPSULE 60 MG PO (08:29)
[2021-04-08] MEDS: ARIPiprazole 10 MG TABLET PO (08:29)
--- NOTE | 2021-04-08 13:59 | P.PNPSI_ITS ---
Subjective Subjective Date of Service: 04/08/21 Reason For Visit: Psychosis Interim History: Patient lying in bed on approach. He set up and looked at mortgage underwriter and said he remembered meeting mortgage underwriter the day before. Appliance Adjuster asked how he is doing and what brought him to the hospital. He said ?I was in my head too much. ?Patient said he did not want to talk about it but was willing to expand that this is what made him feel suicidal. He said he no longer has suicidal ideation. Appliance Adjuster asked about patient and medications to which he said he really has not taken much of anything although he has had a past trial of Seroquel. At 1st patient seemed uninterested in medications but mortgage underwriter referenced fact that patient at was recently admitted to the hospital and that it sounds like he is having a hard time without medications. Patient emphatically stated ?I wanted to stop ?referring to symptoms though he would not disclose them. He asked what the Haldol and Abilify were for to which mortgage underwriter explained; mortgage underwriter also discussed risks/side effects of these medications. At that time, patient volunteered that he does not have auditory hallucinations. Patient said okay to the Abilify and agreed to titrate dose. Otherwise, patient denied any complaints and had no requests. Mental Status Exam Mental Status Exam Narrative: Pt is alert and oriented; behavior is marginally cooperative; patient is not in distress; dressed in hospital gown, scruffy, unkempt; mood is calm with irritable edge and affect congruent; better eye contact; Speech is normal rate, volume and prosody and not pressured; no psychomotor agitation/retardation present; thought process is goal directed. Thought content on want[ing] it to stop referring to symptoms, but otherwise little is disclosed; he denies AVH; he denies SI or HI; Patients insight and judgment are impaired but improving. Diagnostics Vital Signs (24Hr): Vital Signs - 24 hr 04/07/21 18:00 Temperature 97 F Pulse Rate 104 H Blood Pressure 110/68 Body Mass Index 24.5 Medications Medications Current Medications Generic Name Dose Route Start Last Admin Trade Name Freq PRN Reason Stop Dose Admin Acetaminophen 650 mg 04/06/21 21:39 Acetaminophen 325 Mg Tablet PO Q6H PRN Headache/Pain Mild Scale (1-3) Al Hydroxide/Mg Hydroxide 30 ml 04/06/21 21:39 Magnesium Hydrox/Alum Hydrox 30 Ml Oral.Susp PO Q6H PRN Heartburn/Nausea Aripiprazole 10 mg 04/08/21 09:00 04/08/21 08:29 Aripiprazole 10 Mg Tablet PO 10 mg DAILY [facility] Administration Benztropine Mesylate 1 mg 04/06/21 21:39 04/07/21 20:31 Benztropine Mesylate 1 Mg Tablet PO Not Given BEDTIME [facility] Diphenhydramine HCl 50 mg 04/07/21 07:08 Diphenhydramine Hcl 25 Mg Tablet PO Q4H PRN patient request Diphenhydramine HCl 50 mg 04/07/21 10:07 Diphenhydramine Hcl 25 Mg Tablet PO Q4H PRN agitation Fluoxetine HCl 60 mg 04/07/21 09:00 04/08/21 08:29 Fluoxetine Hcl 20 Mg Capsule PO 60 mg DAILY [facility] Administration Haloperidol 5 mg 04/06/21 21:39 04/07/21 20:32 Haloperidol 5 Mg Tablet PO Not Given BEDTIME [facility] Haloperidol 5 mg 04/07/21 10:07 Haloperidol 5 Mg Tablet PO Q4H PRN agitation Hydroxyzine HCl 25 mg 04/06/21 21:39 Hydroxyzine Hcl 25 Mg Tablet PO BEDTIME PRN Anxiety Lorazepam 2 mg 04/07/21 10:07 Lorazepam 1 Mg Tablet PO Q4H PRN agitation Magnesium Hydroxide 30 ml 04/06/21 21:39 Milk Of Magnesia 30 Ml Oral.Susp PO DAILY PRN Constipation Trazodone HCl 50 mg 04/06/21 21:39 Trazodone Hcl 50 Mg Tablet PO BEDTIME PRN Insomnia Allergies Allergies Allergy/AdvReac Type Severity Reaction Status Date / Time olanzapine [OLANZAPINE] Allergy Severe FACIAL Verified 04/06/21 10:20 SWELLING Assessment & Plan Assessment & Plan (1) Schizoaffective disorder: Status: Acute Code(s): F25.9 - Schizoaffective disorder, unspecified Assessment and Plan: IMPRESSION: Patient is a 35-year-old male with history of psychotic illness, recently charged from am 3 a few weeks ago who self presented to the emergency room s aying that he ran to the hospital and if he had a gun he would shoot himself. In ED patient was agitated and disorganized. On floor patient received Haldol Ativan and Benadryl as a p.r.n. for agitation and was then calm. Currently he does not want to talk but did agree to have his recent medications restarted. Will admit patient for safety and medication management Patient would not disclose much. However after listening to the psychotic symptoms and mood stabilizing properties of Abilify, patient said he agrees to a trial of Abilify. Patient reports that he was feeling suicidal prior to admission but that all SI has resolved. PLAN: Patient signed 3 day notice Staff agreed patient can advance to Q 15 Continue Abilify 10 mg daily (as patient agrees to take this); may need to titrate Will change benztropine 1 mg daily to p.r.n. dose (was scheduled) DC Haldol; no reason for patient to be on 2 antipsychotics when he has not had an adequate trial of monotherapy Lowered Prozac to 20 mg daily down from 60 mg (since patient was not taking in the community Will seek collateral Greater than 50% of the session was spent on counseling and/or coordination of care Reason for contiued inpatient stay Substantial Risk for: rapid decompensation
[2021-04-08 16:39] VITALS: BP 119/89; PULSE 93; TEMP 36.4
[2021-04-09 06:00] VITALS: BP 147/98; PULSE 102; RESP 18; TEMP 36.1; O2SAT 98
[2021-04-09] MEDS: ARIPiprazole 10 MG TABLET PO (08:02)
[2021-04-09] MEDS: FLUoxetine HCl 20 MG CAPSULE PO (08:02)
[2021-04-09 16:26] VITALS: BP 127/91; PULSE 90; TEMP 35.9
--- NOTE | 2021-04-09 18:00 | HO.PSYCHPN ---
Subjective Subjective Date of Service: 04/09/21 Reason For Visit: Psychosis Interim History: Patient seen and discussed with team. Patient evaluated this morning and upon interview he reports I feel fine. He says his sleep is fine and he is eating fine. He asked several times if his medication is being prescribed for depression and racing thoughts and nothing more. He denies side effects or akathesia. Says he is not attending groups because I dont like to think of things I dont want to, finds groups to be triggering for these thoughts, he would not elaborate further. He has been med adherent and tolerating the meds well. Continues to be constricted, internally preoccupied. In the milieu, patient is safe in behavior. Denies SI/SIB/HI upon inquiry. Denies irritability or assaultive ideation. Says he feels safe. Medication Compliance: Yes Side effects from medications: No Attending Groups: No Review of Systems Medical Review of Systems: unchanged Mental Status Exam Mental Status Exam Narrative: Well groomed, good hygiene, thin frame. Poor eye contact, somewhat attentive. No Tics or Tremors. No abnormal involuntary movements. Calm, guarded, difficult to engage. Non-pressured speech, non-spontaneous, normal volume, somewhat flat. No prolonged speech latency or dysarthria. Mood is ?fine,? affect is constricted. Denies SI/SIB/HI upon inquiry. Denies A/VH or delusional thought content. Thoughts are coherent, intact. No known cognitive or memory impairment. Insight/ Judgment limited but adequate. Diagnostics Vital Signs (24Hr): Vital Signs - 24 hr 04/09/21 06:00 04/09/21 16:26 Temperature 97 F 96.7 F L Pulse Rate 102 H 90 Respiratory Rate 18 Blood Pressure 147/98 H 127/91 H Pulse Oximetry 98 Body Mass Index 24.5 Medications Medications Current Medications Generic Name Dose Route Start Last Admin Trade Name Freq PRN Reason Stop Dose Admin Acetaminophen 650 mg 04/06/21 21:39 Acetaminophen 325 Mg Tablet PO Q6H PRN Headache/Pain Mild Scale (1-3) Al Hydroxide/Mg Hydroxide 30 ml 04/06/21 21:39 Magnesium Hydrox/Alum Hydrox 30 Ml Oral.Susp PO Q6H PRN Heartburn/Nausea Aripiprazole 10 mg 04/08/21 09:00 04/09/21 08:02 Aripiprazole 10 Mg Tablet PO 10 mg DAILY FIDEL Administration Benztropine Mesylate 1 mg 04/08/21 17:22 Benztropine Mesylate 1 Mg Tablet PO DAILY PRN EPS Diphenhydramine HCl 50 mg 04/07/21 07:08 Diphenhydramine Hcl 25 Mg Tablet PO Q4H PRN patient request Diphenhydramine HCl 50 mg 04/07/21 10:07 Diphenhydramine Hcl 25 Mg Tablet PO Q4H PRN agitation Fluoxetine HCl 20 mg 04/09/21 09:00 04/09/21 08:02 Fluoxetine Hcl 20 Mg Capsule PO 20 mg DAILY FIDEL Administration Haloperidol 5 mg 04/07/21 10:07 Haloperidol 5 Mg Tablet PO Q4H PRN agitation Hydroxyzine HCl 25 mg 04/06/21 21:39 Hydroxyzine Hcl 25 Mg Tablet PO BEDTIME PRN Anxiety Lorazepam 2 mg 04/07/21 10:07 Lorazepam 1 Mg Tablet PO Q4H PRN agitation Magnesium Hydroxide 30 ml 04/06/21 21:39 Milk Of Magnesia 30 Ml Oral.Susp PO DAILY PRN Constipation Trazodone HCl 50 mg 04/06/21 21:39 Trazodone Hcl 50 Mg Tablet PO BEDTIME PRN Insomnia Allergies Allergies Allergy/AdvReac Type Severity Reaction Status Date / Time olanzapine [OLANZAPINE] Allergy Severe FACIAL Verified 04/06/21 10:20 SWELLING Assessment & Plan Assessment & Plan (1) Schizoaffective disorder: Status: Acute Code(s): F25.9 - Schizoaffective disorder, unspecified Assessment and Plan: IMPRESSION: Patient is a 35-year-old male with history of psychotic illness, recently charged from am 3 a few weeks ago who self presented to the emergency room saying that he ran to the hospital and if he had a gun he would shoot himself. In ED patient was agitated and disorganized. On floor patient received Haldol Ativan and Benadryl as a p.r.n. for agitation and was then calm. Currently he does not want to talk but did agree to have his recent medications restarted. Will admit patient for safety and medication management Patient would not disclose much. However after listening to the psychotic symptoms and mood stabilizing properties of Abilify, patient said he agrees to a trial of Abilify. Patient reports that he was feeling suicidal prior to admission but that all SI has resolved. -He has been med adherent with abilify and denies side effects. He is focused on it being helpful for racing thoughts and depression. He is adamant that he does not want to increase the dose today. PLAN: Patient signed 3 day notice Staff agreed patient can advance to Q 15 Continue Abilify 10 mg daily (as patient agrees to take this); may need to titrate Will change benztropine 1 mg daily to p.r.n. dose (was scheduled) DC Haldol; no reason for patient to be on 2 antipsychotics when he has not had an adequate trial of monotherapy Lowered Prozac to 20 mg daily down from 60 mg (since patient was not taking in the community Will seek collateral Greater than 50% of the session was spent on counseling and/or coordination of care Reason for contiued inpatient stay Substantial Risk for: harm to self, rapid decompensation and med/psych decompensation
[2021-04-09] MEDS: diphenhydrAMINE HCL 25 MG TABLET 50 MG PO (20:40)
[2021-04-10] MEDS: FLUoxetine HCl 20 MG CAPSULE PO (07:57)
[2021-04-10] MEDS: ARIPiprazole 10 MG TABLET PO (08:00)
--- NOTE | 2021-04-10 14:20 | P.PNPSI_ITS ---
Subjective Subjective Date of Service: 04/11/21 Reason For Visit: Psychosis Subjective Notes: 3 Day Healthcare Proxy: No Guardianship: No Medical Problems Affecting Mental Status: No Interim History: Patient seen and discussed with team. Patient evaluated this morning and upon interview he reports I suffer from pretty severe compulsive behaviors and says he is compulsive with eating sweet s, i.e. will eat half a pound of ice cream in a night, will compulsively masturbate. Says he is wondering if there is anything you can put me on that will help. Discussed that abilify can help with this. He says in the past he took seroquel but he is afraid of it because of how bad it was to come off it and because of how much it controls my mood. However, he says it might have been helping me with my compulsions. Continues to endorse racing thoughts, says thoughts are all over the place. Says on abilify he has felt at points it is helping with racing thoughts but continues to report depressed mood. Says he has had ECT in the past and ever since my emotions are blunted but I still feel depressed. Mood is sad, lonely. Appetite and sleep are fine. He is adamant that he does not want a dose increase in abilify. He has been med adherent and tolerating the meds well. Continues to be constricted, internally preoccupied. In the milieu, patient is safe in behavior, isolative. Denies SI/SIB/HI upon inquiry. Denies irritability or assaultive ideation. Says he feels safe. Medication Compliance: Yes Side effects from medications: No Attending Groups: No Mental Status Exam Mental Status Exam Narrative: Well groomed, good hygiene, thin frame. Poor eye contact, somewhat attentive. No Tics or Tremors. No abnormal involuntary movements. Calm, guarded, difficult to engage. Non-pressured speech, non-spontaneous, normal volume, somewhat flat. No prolonged speech latency or dysarthria. Mood is ?sad,? affect is constricted. Denies SI/SIB/HI upon inquiry. Denies A/VH or delusional thought content. Thoughts are coherent, intact. No known cognitive or memory impairment. Insight/ Judgment limited but adequate. Diagnostics Vital Signs (24Hr): Vital Signs - 24 hr 04/09/21 16:26 Temperature 96.7 F L Pulse Rate 90 Blood Pressure 127/91 H Body Mass Index 24.5 Medications Medications Current Medications Generic Name Dose Route Start Last Admin Trade Name Freq PRN Reason Stop Dose Admin Acetaminophen 650 mg 04/06/21 21:39 Acetaminophen 325 Mg Tablet PO Q6H PRN Headache/Pain Mild Scale (1-3) Al Hydroxide/Mg Hydroxide 30 ml 04/06/21 21:39 Magnesium Hydrox/Alum Hydrox 30 Ml Oral.Susp PO Q6H PRN Heartburn/Nausea Aripiprazole 10 mg 04/08/21 09:00 04/10/21 08:00 Aripiprazole 10 Mg Tablet PO 10 mg DAILY FIDEL Administration Benztropine Mesylate 1 mg 04/08/21 17:22 Benztropine Mesylate 1 Mg Tablet PO DAILY PRN EPS Diphenhydramine HCl 50 mg 04/07/21 07:08 04/09/21 20:40 Diphenhydramine Hcl 25 Mg Tablet PO 50 mg Q4H PRN Administration patient request Diphenhydramine HCl 50 mg 04/07/21 10:07 Diphenhydramine Hcl 25 Mg Tablet PO Q4H PRN agitation Fluoxetine HCl 20 mg 04/09/21 09:00 04/10/21 07:57 Fluoxetine Hcl 20 Mg Capsule PO 20 mg DAILY FIDEL Administration Haloperidol 5 mg 04/07/21 10:07 Haloperidol 5 Mg Tablet PO Q4H PRN agitation Hydroxyzine HCl 25 mg 04/06/21 21:39 Hydroxyzine Hcl 25 Mg Tablet PO BEDTIME PRN Anxiety Lorazepam 2 mg 04/07/21 10:07 Lorazepam 1 Mg Tablet PO Q4H PRN agitation Magnesium Hydroxide 30 ml 04/06/21 21:39 Milk Of Magnesia 30 Ml Oral.Susp PO DAILY PRN Constipation Trazodone HCl 50 mg 04/06/21 21:39 Trazodone Hcl 50 Mg Tablet PO BEDTIME PRN Insomnia Allergies Allergies Allergy/AdvReac Type Severity Reaction Status Date / Time olanzapine [OLANZAPINE] Allergy Severe FACIAL Verified 04/06/21 10:20 SWELLING Assessment & Plan Assessment & Plan (1) Schizoaffective disorder: Status: Acute Code(s): F25.9 - Schizoaffective disorder, unspecified Assessment and Plan: IMPRESSION: Patient is a 35-year-old male with history of psychotic illness, recently charged from am 3 a few weeks ago who self presented to the emergency room saying that he ran to the hospital and if he had a gun he would shoot himself. In ED patient was agitated and disorganized. On floor patient received Haldol Ativan and Benadryl as a p.r.n. for agitation and was then calm. Currently he does not want to talk but did agree to have his recent medications restarted. Will admit patient for safety and medication management Patient would not disclose much. However after listening to the psychotic symptoms and mood stabilizing properties of Abilify, patient said he agrees to a trial of Abilify. Patient reports that he was feeling suicidal prior to admission but that all SI has resolved. -He has been med adherent with abilify and denies side effects. He is focused on it being helpful for racing thoughts and depression. He is adamant that he does not want to increase the dose but disclosed compulsive thoughts and was provided education that abilify could help with these sx. PLAN: Patient signed 3 day notice Staff agreed patient can advance to Q 15 Continue Abilify 10 mg daily (as patient agrees to take this); may need to titrate Will change benztropine 1 mg daily to p.r.n. dose (was scheduled) DC Haldol; no reason for patient to be on 2 antipsychotics when he has not had an adequate trial of monotherapy Lowered Prozac to 20 mg daily down from 60 mg (since patient was not taking in the community Will seek collateral Greater than 50% of the session was spent on counseling and/or coordination of care Reason for contiued inpatient stay Substantial Risk for: rapid decompensation and med/psych decompensation
[2021-04-10 18:00] VITALS: BP 128/84; PULSE 78; TEMP 36.7
[2021-04-10 19:03] VITALS: BP 124/76; PULSE 71
[2021-04-11 06:25] VITALS: BP 121/70; PULSE 83; TEMP 36.9
--- NOTE | 2021-04-11 14:46 | HO.PSYCHPN ---
Subjective Subjective Date of Service: 04/11/21 Reason For Visit: Psychosis Interim History: Patient sitting in bed on approach, awake and alert. Patient guarded though seems to be trying to cooperate. [facility] discussed his refusal of Abilfy today and patient said that he is not sure what to do about his medications. When insurance underwriter sales inquired further patient politely said ?I do not want to discuss it.? [facility] accept this but asked if patient would disclose some of the reasons why he did not want to discuss. He said that he thought that his actions in the emergency room were the reason that he was being prescribed an antipsychotic. [facility] said that that is only a small part of the reason and reviewed patient's earlier reporting where he said he felt Abilify was helping his racing thoughts. Patient agreed but then said he's wondering if there maybe other reasons for the improvement in his racing thoughts other than medications. Patient again asked insurance underwriter sales what Abilify was for and insurance underwriter sales explained the various symptoms Abilify is known to treat; patient then said he is willing to continue this medication and agreed to having a now dose to make up for his missed a morning dose.. [facility] asked about the Prozac and referenced patient's last comment about obsessional thinking. Patient said he was to continue with the Prozac for now. [facility] offered to discuss patient's pending 3 day notice due however patient expressed he would rather talk about it tomorrow to which insurance underwriter sales agreed. hx: Admitted March 2020 with paranoid thoughts, SI and HI ?1. Schizoaffective disorder, depressive type I WOULD RECONSIDER TREATMENT WITH CLOZARIL AND OR ECT YOU HAVE BEEN STARTED ON HALDOL LOW DOSE 2.5 MG 2 X DAY CONTINUE SEROQUEL [400mg in divided doses] Ferry Carbonate ER (Ferry Carbonate ER) 450 MG TABLET.ER [bid] Benztropine Mesylate (Cogentin) 0.5 MG TABLET [bid] Medication Compliance: Intermittent Side effects from medications: No Attending Groups: No Diagnostics Vital Signs (24Hr): Vital Signs - 24 hr 04/10/21 18:00 04/10/21 19:03 04/11/21 06:25 Temperature 98.0 F 98.5 F Pulse Rate 78 71 83 Blood Pressure 128/84 124/76 121/70 Body Mass Index 24.5 Medications Medications Current Medications Generic Name Dose Route Start Last Admin Trade Name Freq PRN Reason Stop Dose Admin Acetaminophen 650 mg 04/06/21 21:39 Acetaminophen 325 Mg Tablet PO Q6H PRN Headache/Pain Mild Scale (1-3) Al Hydroxide/Mg Hydroxide 30 ml 04/06/21 21:39 Magnesium Hydrox/Alum Hydrox 30 Ml Oral.Susp PO Q6H PRN Heartburn/Nausea Aripiprazole 10 mg 04/08/21 09:00 04/11/21 08:55 Aripiprazole 10 Mg Tablet PO Not Given DAILY FIDEL Benztropine Mesylate 1 mg 04/08/21 17:22 Benztropine Mesylate 1 Mg Tablet PO DAILY PRN EPS Diphenhydramine HCl 50 mg 04/07/21 07:08 04/09/21 20:40 Diphenhydramine Hcl 25 Mg Tablet PO 50 mg Q4H PRN Administration patient request Diphenhydramine HCl 50 mg 04/07/21 10:07 Diphenhydramine Hcl 25 Mg Tablet PO Q4H PRN agitation Fluoxetine HCl 20 mg 04/09/21 09:00 04/11/21 08:56 Fluoxetine Hcl 20 Mg Capsule PO Not Given DAILY FIDEL Haloperidol 5 mg 04/07/21 10:07 Haloperidol 5 Mg Tablet PO Q4H PRN agitation Hydroxyzine HCl 25 mg 04/06/21 21:39 Hydroxyzine Hcl 25 Mg Tablet PO BEDTIME PRN Anxiety Lorazepam 2 mg 04/07/21 10:07 Lorazepam 1 Mg Tablet PO Q4H PRN agitation Magnesium Hydroxide 30 ml 04/06/21 21:39 Milk Of Magnesia 30 Ml Oral.Susp PO DAILY PRN Constipation Trazodone HCl 50 mg 04/06/21 21:39 Trazodone Hcl 50 Mg Tablet PO BEDTIME PRN Insomnia Allergies Allergies Allergy/AdvReac Type Severity Reaction Status Date / Time olanzapine [OLANZAPINE] Allergy Severe FACIAL Verified 04/06/21 10:20 SWELLING Assessment & Plan Assessment & Plan (1) Schizoaffective disorder: Status: Acute Code(s): F25.9 - Schizoaffective disorder, unspecified Assessment and Plan: IMPRESSION: Patient is a 35-year-old male with history of psychotic illness, recently charged from am 3 a few weeks ago who self presented to the emergency room saying that he ran to the hospital and if he had a gun he would shoot himself. In ED patient was agitated and disorganized. On floor patient received Haldol Ativan and Benadryl as a p.r.n. for agitation and was then calm. Patient very guarded. Hospital course Patient would not disclose much. However after listening to the psychotic symptoms and mood stabilizing properties of Abilify, patient said he agrees to a trial of Abilify (which he thought helped with racing thoughts). Patient reports that he was feeling suicidal prior to admission but that all SI has resolved. -he remains very guarded -patient self presented to the emergency room saying he was considering killing himself with a knife or gun; since admission he remains guarded and unwilling to discuss much of anything about his symptoms. Given that he has a history of psychotic illness and nonadherence with medications, team is strongly considering petitioning the court for civil commitment. PLAN: Patient signed 3 day notice Q 15 minutes checks Continue Abilify 10 mg daily (as patient agrees to take this); may need to titrate Will change benztropine 1 mg daily to p.r.n. dose (was scheduled) Lowered Prozac to 20 mg daily down from 60 mg (since patient was not taking in the community Will seek collateral Greater than 50% of the session was spent on counseling and/or coordination of care Reason for contiued inpatient stay Substantial Risk for: rapid decompensation
[2021-04-11] MEDS: ARIPiprazole 10 MG TABLET PO (14:59)
[2021-04-11 17:53] VITALS: BP 120/81; PULSE 68; RESP 16; TEMP 36.6; O2SAT 97
[2021-04-11] MEDS: diphenhydrAMINE HCL 25 MG TABLET 50 MG PO (20:45)
[2021-04-12 06:43] VITALS: BP 114/84; PULSE 99; RESP 16; TEMP 36.4; O2SAT 96
--- NOTE | 2021-04-12 08:55 | PC.NURSE ---
PT refused morning meds. PT did not want to discuss his reasoning for refusing meds.
[2021-04-12] MEDS: LORazepam 1 MG TABLET PO (11:49)
--- NOTE | 2021-04-12 12:14 | HO.PSYCHPN ---
Subjective Subjective Date of Service: 04/12/21 Reason For Visit: Psychosis Subjective Notes: Gutierres Warning and 3 Day Interim History: Met with patient on 04/12 Gutierres warning given a 2nd time, including that it is totally voluntary for patient to talk with lead technical writer and the potential for civil commitment and court ordered antipsychotic medication. Patient under much distress, to liberating whether or not to disclose his thoughts to this lead technical writer. Patient said at 1st he did not want to discuss his medications and did not wanted to discuss the problem he is having because he was not sure whether not he could trust lead technical writer, alluding to possibility that lead technical writer is part of conspiracy persecuting this patient. Patient shared he wants help but is not sure what form the help should come in. He also feels that medications are placebo and not doing anything. However, as the conversation continued, patient eventually said F-it and started to disclose what he is struggling with. With much emotional anguish, intermittent tears and outbursts of anger, Patient reports that he believes he has committed crimes though he would not disclose them. He went to the police to confess these crimes, hoping to be put in [facility] for life. Part of the reason he presented to police was because he has been shown things through different media as that imply that [he] will be tortured. Patient explained that he gets messages through the TV and radio and sometimes other people, his cell phone or e-mail that he is going to be tortured. He thinks that the government and/or police or FBI are part of this conspiracy. He says through tears that he has been told to do certain things by these communications that are impossible. Certain things that if he does to himself, he might lessen the amount of torture he will receive. Patient yelled I water-boarded myself for 2 days trying to obey this order. He repeated this and then got extremely agitated, stood up, started yelling, clenching his fists, smacking his hands and pacing the room... Staff came over to assess for safety. Patient calmed down and said that he does not want to hurt anyone and has no intention or plans to do so but understands that his actions were scary and he is apologetic. Patient grabbed his head and repeated in loud, anguished voice ?I do not know what to do ?referring to whether to trust lead technical writer, take medications, stay on the inpatient unit or discharge... expressing he wants to trust lead technical writer but not sure if he can. Lift Builder Whole attempted some reality testing and also appealed to logic saying that while patient is worried he will be tortured, he appears to be tortured now by this tremendous confusing experience. Patient said that he does trust his parents and younger sister however he believes they do not understand the situation. At this point lead technical writer and patient agreed to conclude conversation and allow patient to calm down. Patient then walked outside room into the hallway, and then screamed several times you did this to me or something like that; he was eventually willing to take an Ativan which he said helped him. Medication Compliance: Intermittent Side effects from medications: No Attending Groups: No Mental Status Exam Mental Status Exam Narrative: Pt is alert and oriented; behavior is cooperative; patient is in emotinal distress; dressed in casual cloths with appropriate hygiene; mood is distressed and depressed with affect that ranges from anxious to anguish; appropriate eye contact; Speech is normal rate, volume and prosody and not pressured; no psychomotor agitation/retardation present; thought process is goal directed, logical and linear. Significant thought blocking; Thought content on being persecuted and on wether or not staff is a part of conspiracy; he denies AVH but says he gets messages from conspirators through TV, radio, people, cellphone or email; he denies SI or HI; Patients insight and judgment are impaired. Diagnostics Vital Signs (24Hr): Vital Signs - 24 hr 04/11/21 17:53 04/12/21 06:43 Temperature 97.8 F 97.6 F Pulse Rate 68 99 Respiratory Rate 16 16 Blood Pressure 120/81 114/84 Pulse Oximetry 97 96 Body Mass Index 24.5 Medications Medications Current Medications Generic Name Dose Route Start Last Admin Trade Name Freq PRN Reason Stop Dose Admin Acetaminophen 650 mg 04/06/21 21:39 Acetaminophen 325 Mg Tablet PO Q6H PRN Headache/Pain Mild Scale (1-3) Al Hydroxide/Mg Hydroxide 30 ml 04/06/21 21:39 Magnesium Hydrox/Alum Hydrox 30 Ml Oral.Susp PO Q6H PRN Heartburn/Nausea Aripiprazole 10 mg 04/08/21 09:00 04/12/21 08:54 Aripiprazole 10 Mg Tablet PO Not Given DAILY FIDEL Benztropine Mesylate 1 mg 04/08/21 17:22 Benztropine Mesylate 1 Mg Tablet PO DAILY PRN EPS Diphenhydramine HCl 50 mg 04/07/21 07:08 04/11/21 20:45 Diphenhydramine Hcl 25 Mg Tablet PO 50 mg Q4H PRN Administration patient request Diphenhydramine HCl 50 mg 04/07/21 10:07 Diphenhydramine Hcl 25 Mg Tablet PO Q4H PRN agitation Fluoxetine HCl 20 mg 04/09/21 09:00 04/12/21 08:54 Fluoxetine Hcl 20 Mg Capsule PO Not Given DAILY FIDEL Haloperidol 5 mg 04/07/21 10:07 Haloperidol 5 Mg Tablet PO Q4H PRN agitation Hydroxyzine HCl 25 mg 04/06/21 21:39 Hydroxyzine Hcl 25 Mg Tablet PO BEDTIME PRN Anxiety Lorazepam 2 mg 04/07/21 10:07 Lorazepam 1 Mg Tablet PO Q4H PRN agitation Magnesium Hydroxide 30 ml 04/06/21 21:39 Milk Of Magnesia 30 Ml Oral.Susp PO DAILY PRN Constipation Trazodone HCl 50 mg 04/06/21 21:39 Trazodone Hcl 50 Mg Tablet PO BEDTIME PRN Insomnia Allergies Allergies Allergy/AdvReac Type Severity Reaction Status Date / Time olanzapine [OLANZAPINE] Allergy Severe FACIAL Verified 04/06/21 10:20 SWELLING Assessment & Plan Assessment & Plan (1) Schizoaffective disorder: Status: Acute Code(s): F25.9 - Schizoaffective disorder, unspecified Assessment and Plan: IMPRESSION: Patient is a 35-year-old male with history of psychotic illness, recently charged from am 3 a few weeks ago who self presented to the emergency room saying that he ran to the hospital and if he had a gun he would shoot himself. In ED patient was agitated and disorganized. On floor patient received Haldol Ativan and Benadryl as a p.r.n. for agitation and was then calm. Currently he does not want to talk but did agree to have his recent medications restarted. 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; -patient has history of medication trials and ECT (ECT in 2019); He is not sure what medication trials he has had but says they are all on helpful -patient was recently admitted about a month ago with similar presentation barricaded himself in his apartment with blocked windows; isolating expressing concern the government is out to get him to police department confessing crimes, sectioned to the ED) -this admission, patient self presented to the emergency room saying he was suicidal with thoughts or plans to stab himself with a knife or shoot himself with a gun; patient has been very guarded during this admission though he has started to disclose what he is struggling with. He is very ambivalent about taking medications with a history of non adherence. Patient has no insight at all into his psychiatric illness/psychotic symptoms. Given the fact that patient was suicidal on admission, remains plagued by persecutory delusions with no insight and as a result tortures himself in the community, lead technical writer and team agree that patient is in imminent risk for harm to self and requires continued inpatient psychiatric treatment. Will petition for civil commitment Hospital course: very guarded on admission; intermittently willing to take Abilfy, prozac. Patient started to disclose more info. However after listening to the psychotic symptoms and mood stabilizing properties of Abilify, patient said he agrees to a trial of Abilify. Patient reports that he was feeling suicidal prior to admission but that all SI has resolved. -intermittent med adherent with Abilify; denies side effects says it seemed to help with racing thoughts and depression. -patient suffering from persecutory delusions and subsequent depression and anxiety PLAN: Patient signed 3 day notice due 04/13/21 Unless the patient changes his mind and signs in Will petition for civil commitment Q 15 checks Continue Abilify 10 mg daily as pt is willing as it seems tohave had some benefit; very likely need to titrate benztropine 1 mg daily to p.r.n. dose (was scheduled) Prozac to 20 mg daily (down from 60 mg since patient was not taking in the community) Will seek collateral Greater than 50% of the session was spent on counseling and/or coordination of care Reason for contiued inpatient stay Substantial Risk for: rapid decompensation
[2021-04-12 17:43] VITALS: BP 118/83; PULSE 64; RESP 16; TEMP 36.1; O2SAT 98
[2021-04-13 06:00] VITALS: BP 132/81; PULSE 68; RESP 18; TEMP 35.8; O2SAT 98
[2021-04-13] MEDS: ARIPiprazole 10 MG TABLET PO (10:36)
[2021-04-13] MEDS: FLUoxetine HCl 20 MG CAPSULE PO (10:36)
--- NOTE | 2021-04-13 12:25 | HO.PSYCHPN ---
Subjective Subjective Date of Service: 04/13/21 Reason For Visit: Psychosis Subjective Notes: Section 7, Conditional Voluntary and 3 Day Interim History: Patient said he wanted to talk however did not want to discuss his problems but rather the details surrounding his 3 day notice. Patient asked about some of the legal process to which teletypewriter installer explained. He asked about the role of taking medications. Operational Intelligence Officer explained the concerns regarding his diagnosis and that it is the teams approache to petition the court for substituted judgment and thus administration of antipsychotic medication. Patient reiterates he wishes he could be more clear on whether or not he could trust the teletypewriter installer/staff/hospital and know whether it is part of the conspiracy or legitimate. Again offered patient to CV however patient politely declined. He said that for now he will take the medications prescribed but will continue keeping [address] and allow this to go to court. Medication Compliance: Intermittent Side effects from medications: No Attending Groups: No Mental Status Exam Mental Status Exam Narrative: Pt is alert and oriented; behavior is cooperative and calm; patient is in not in distress; dressed in casual cloths with appropriate hygiene; mood is distressed and depressed with anxious affect;? appropriate eye contact; Speech is normal rate, volume and prosody and not pressured; no psychomotor agitation/retardation present; thought process is goal directed, logical and linear. Significant thought blocking; Thought content on being persecuted and on whether or not staff is a part of conspiracy against him; he denies AVH but says he gets messages from conspirators through TV, radio, people, cellphone or email; he denies SI or HI; Patients insight and judgment are impaired. Diagnostics Vital Signs (24Hr): Vital Signs - 24 hr 04/12/21 17:43 04/13/21 06:00 Temperature 97.0 F 96.5 F L Pulse Rate 64 68 Respiratory Rate 16 18 Blood Pressure 118/83 132/81 Pulse Oximetry 98 98 Body Mass Index 24.5 Medications Medications Current Medications Generic Name Dose Route Start Last Admin Trade Name Freq PRN Reason Stop Dose Admin Acetaminophen 650 mg 04/06/21 21:39 Acetaminophen 325 Mg Tablet PO Q6H PRN Headache/Pain Mild Scale (1-3) Al Hydroxide/Mg Hydroxide 30 ml 04/06/21 21:39 Magnesium Hydrox/Alum Hydrox 30 Ml Oral.Susp PO Q6H PRN Heartburn/Nausea Aripiprazole 10 mg 04/08/21 09:00 04/13/21 10:36 Aripiprazole 10 Mg Tablet PO 10 mg DAILY FIDEL Administration Benztropine Mesylate 1 mg 04/08/21 17:22 Benztropine Mesylate 1 Mg Tablet PO DAILY PRN EPS Diphenhydramine HCl 50 mg 04/07/21 07:08 04/11/21 20:45 Diphenhydramine Hcl 25 Mg Tablet PO 50 mg Q4H PRN Administration patient request Diphenhydramine HCl 50 mg 04/07/21 10:07 Diphenhydramine Hcl 25 Mg Tablet PO Q4H PRN agitation Fluoxetine HCl 20 mg 04/09/21 09:00 04/13/21 10:36 Fluoxetine Hcl 20 Mg Capsule PO 20 mg DAILY FIDEL Administration Haloperidol 5 mg 04/07/21 10:07 Haloperidol 5 Mg Tablet PO Q4H PRN agitation Hydroxyzine HCl 25 mg 04/06/21 21:39 Hydroxyzine Hcl 25 Mg Tablet PO BEDTIME PRN Anxiety Lorazepam 2 mg 04/07/21 10:07 Lorazepam 1 Mg Tablet PO Q4H PRN agitation Lorazepam 1 mg 04/12/21 12:14 Lorazepam 1 Mg Tablet PO TID PRN Anxiety Magnesium Hydroxide 30 ml 04/06/21 21:39 Milk Of Magnesia 30 Ml Oral.Susp PO DAILY PRN Constipation Trazodone HCl 50 mg 04/06/21 21:39 Trazodone Hcl 50 Mg Tablet PO BEDTIME PRN Insomnia Allergies Allergies Allergy/AdvReac Type Severity Reaction Status Date / Time olanzapine [OLANZAPINE] Allergy Severe FACIAL Verified 04/06/21 10:20 SWELLING Assessment & Plan Assessment & Plan (1) Schizoaffective disorder: Status: Acute Code(s): F25.9 - Schizoaffective disorder, unspecified Assessment and Plan: IMPRESSION: Patient is a 35-year-old male with history of psychotic illness, recently charged from am 3 a few weeks ago who self presented to the emergency room saying that he ran to the hospital and if he had a gun he would shoot himself. In ED patient was agitated and disorganized. On floor patient received Haldol Ativan and Benadryl as a p.r.n. for agitation and was then calm. Currently he does not want to talk but did agree to have his recent medications restarted. 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; -patient has history of medication trials and ECT (ECT in 2019); He is not sure what medication trials he has had but says they are all on helpful -patient was recently admitted about a month ago with similar presentation barricaded himself in his apartment with blocked windows; isolating expressing concern the government is out to get him to police department confessing crimes, sectioned to the ED) -this admission, patient self presented to the emergency room saying he was suicidal with thoughts or plans to stab himself with a knife or shoot himself with a gun; patient has been very guarded during this admission though he has started to disclose what he is struggling with. Patient has had several explosive episodes on the unit, yelling/screaming loudly, with intensity, with clenched fists (of note, while this is frightening and makes staff concerned about safety, he has made no threat to others and denies any HI, intention or urges to do so). He is very ambivalent about taking medications with a history of non adherence (currently says the don't work, are placebo ). Patient has no insight at all into his psychiatric illness/psychotic symptoms. Given the fact that patient was suicidal on admission, remains plagued by persecutory delusions with no insight and as a result tortures himself in the community, teletypewriter installer and team agree that patient is in imminent risk for harm to self and requires continued inpatient psychiatric treatment. Will petition for civil commitment Hospital course: very guarded on admission; intermittently willing to take Abilfy, prozac. Patient started to disclose more info. However after listening to the psychotic symptoms and mood stabilizing properties of Abilify, patient said he agrees to a trial of Abilify. Patient reports that he was feeling suicidal prior to admission but that all SI has resolved. -intermittent med adherent with Abilify; denies side effects; at one point said it seemed to help with racing thoughts and depression but has since he does not think this the case. -patient suffering from persecutory delusions and subsequent depression and anxiety PLAN: filed for civil commitment Q 15 checks Continue Abilify 10 mg daily as pt is willing as it seems to have had some benefit; very likely need to titrate benztropine 1 mg daily to p.r.n. dose (was scheduled) Prozac to 20 mg daily (down from 60 mg since patient was not taking in the community) Will seek collateral Med trials: Rispderal: possible some benefit Abilify Haldol: dystonia? Olanzapine [facility] Seroquel ECT recent 2020 hospitalizations: 09/2020 [facility] 01/2021 [facility] 03/2021 [facility] Greater than 50% of the session was spent on counseling and/or coordination of care Reason for contiued inpatient stay Substantial Risk for: inability to function and rapid decompensation
[2021-04-13 19:47] VITALS: BP 109/66; PULSE 70; RESP 16; O2SAT 93
[2021-04-14 06:00] VITALS: BP 134/81; PULSE 112; RESP 16; TEMP 36.4; O2SAT 98
[2021-04-14 07:00] VITALS: BMI 22.1
[2021-04-14] MEDS: ARIPiprazole 10 MG TABLET PO (09:18)
[2021-04-14] MEDS: FLUoxetine HCl 20 MG CAPSULE PO (09:19)
--- NOTE | 2021-04-14 16:24 | HO.PSYCHPN ---
Subjective Subjective Date of Service: 04/14/21 Reason For Visit: Psychosis Subjective Notes: Conditional Voluntary Interim History: Patient reports that he decided to sign himself into the hospital feeling that was the best choice for him at this time. Did not want to elaborate further. Weaving Inspector broached subject and patient agreed that for now he would like to hold off discussing his particular problem. However, Patient said that he is fine with taking Abilify and says he will ?give it the college try. ? To that end principal technical writer suggests increasing the dose so that a decision on Abilify's effectiveness is not concluded prematurely. Patient agrees to titration. Patient denies medication side effects. He reports trouble sleeping last night but says it is mostly due to sleeping during the day and throwing his sleep cycle off. He says he thinks he can get back to sleeping through the night and does not feel the need for medication to help. Patient also reports constipation for week but says this is not uncommon for him, that he is not uncomfortable and will ask for laxative type medications if he feels the need. Mental Status Exam Mental Status Exam Narrative: Pt is alert and oriented; behavior is cooperative and calm; patient is in not in distress; dressed in casual cloths with appropriate hygiene; mood is depressed with anxious affect;? appropriate eye contact; Speech is normal rate, volume and prosody and not pressured; no psychomotor agitation/retardation present; thought process is goal directed, logical and linear; thought blocking; Thought content on being persecuted and on whether or not staff is a part of conspiracy against him; he denies AVH but says he gets messages from conspirators through TV, radio, people, cellphone or email; he denies SI or HI; Patients insight and judgment are impaired. Diagnostics Vital Signs (24Hr): Vital Signs - 24 hr 04/13/21 19:47 04/14/21 06:00 Temperature 97.6 F Pulse Rate 70 112 H Respiratory Rate 16 16 Blood Pressure 109/66 134/81 Pulse Oximetry 93 98 Body Mass Index 22.1 Medications Medications Current Medications Generic Name Dose Route Start Last Admin Trade Name Freq PRN Reason Stop Dose Admin Acetaminophen 650 mg 04/06/21 21:39 Acetaminophen 325 Mg Tablet PO Q6H PRN Headache/Pain Mild Scale (1-3) Al Hydroxide/Mg Hydroxide 30 ml 04/06/21 21:39 Magnesium Hydrox/Alum Hydrox 30 Ml Oral.Susp PO Q6H PRN Heartburn/Nausea Aripiprazole 15 mg 04/15/21 09:00 Aripiprazole 15 Mg Tablet PO DAILY FIDEL Benztropine Mesylate 1 mg 04/08/21 17:22 Benztropine Mesylate 1 Mg Tablet PO DAILY PRN EPS Diphenhydramine HCl 50 mg 04/07/21 10:07 Diphenhydramine Hcl 25 Mg Tablet PO Q4H PRN agitation Fluoxetine HCl 20 mg 04/09/21 09:00 04/14/21 09:19 Fluoxetine Hcl 20 Mg Capsule PO 20 mg DAILY FIDEL Administration Haloperidol 5 mg 04/07/21 10:07 Haloperidol 5 Mg Tablet PO Q4H PRN agitation Hydroxyzine HCl 25 mg 04/06/21 21:39 Hydroxyzine Hcl 25 Mg Tablet PO BEDTIME PRN Anxiety Lorazepam 2 mg 04/07/21 10:07 Lorazepam 1 Mg Tablet PO Q4H PRN agitation Lorazepam 1 mg 04/12/21 12:14 Lorazepam 1 Mg Tablet PO TID PRN Anxiety Magnesium Hydroxide 30 ml 04/06/21 21:39 Milk Of Magnesia 30 Ml Oral.Susp PO DAILY PRN Constipation Trazodone HCl 50 mg 04/06/21 21:39 Trazodone Hcl 50 Mg Tablet PO BEDTIME PRN Insomnia Allergies Allergies Allergy/AdvReac Type Severity Reaction Status Date / Time olanzapine [OLANZAPINE] Allergy Severe FACIAL Verified 04/06/21 10:20 SWELLING Assessment & Plan Assessment & Plan (1) Schizoaffective disorder: Status: Acute Code(s): F25.9 - Schizoaffective disorder, unspecified Assessment and Plan: IMPRESSION: Patient is a 35-year-old male with history of psychotic illness, recently charged from am 3 a few weeks ago who self presented to the emergency room saying that he ran to the hospital and if he had a gun he would shoot himself. In ED patient was agitated and disorganized. On floor patient received Haldol Ativan and Benadryl as a p.r.n. for agitation and was then calm. Currently he does not want to talk but did agree to have his recent medications restarted. 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; -patient has history of medication trials and ECT (ECT in 2019); He is not sure what medication trials he has had but says they are all on helpful -patient was recently admitted about a month ago with similar presentation barricaded himself in his apartment with blocked windows; isolating expressing concern the government is out to get him to police department confessing crimes, sectioned to the ED) -this admission, patient self presented to the emergency room saying he was suicidal with thoughts or plans to stab himself with a knife or shoot himself with a gun; patient has been very guarded during this admission though he has started to disclose what he is struggling with. Patient has had several explosive episodes on the unit, yelling/screaming loudly, with intensity, with clenched fists (of note, while this is frightening and makes staff concerned about safety, he has made no threat to others and denies any HI, intention or urges to do so). He is very ambivalent about taking medications with a history of non adherence (currently says the don't work, are placebo ). Patient has no insight at all into his psychiatric illness/psychotic symptoms. Given the fact that patient was suicidal on admission, remains plagued by persecutory delusions with no insight and as a result tortures himself in the community, principal technical writer and team agree that patient is in imminent risk for harm to self and requires continued inpatient psychiatric treatment. Plan was rob petition for civil commitment however patient decided to sign himself in Hospital course: very guarded on admission; intermittently willing to take Abilfy, prozac. Patient started to disclose more info. However after listening to the psychotic symptoms and mood stabilizing properties of Abilify, patient said he agrees to a trial of Abilify. Patient reports that he was feeling suicidal prior to admission but that all SI has resolved. -intermittent med adherent with Abilify; denies side effects; at one point said it seemed to help with racing thoughts and depression but has since he does not think this the case. -patient suffering from persecutory delusions and subsequent depression and anxiety PLAN: Patient signed himself in to the unit; rescinded 3 day notice Q 15 checks INCREASE TO Abilify 15 mg daily as pt is willing as it seems to have had some benefit; will titrate as needed benztropine 1 mg daily to p.r.n. dose (was scheduled) Prozac to 20 mg daily (down from 60 mg since patient was not taking in the community) Will seek collateral Med trials: Rispderal: possible some benefit Abilify Haldol: dystonia? Olanzapine [facility] Seroquel ECT recent 2020 hospitalizations: 09/2020 [facility] 01/2021 [facility] 03/2021 [place] current [facility] Greater than 50% of the session was spent on counseling and/or coordination of care Reason for contiued inpatient stay Substantial Risk for: rapid decompensation
[2021-04-14 19:25] VITALS: BP 121/64; PULSE 62; RESP 14; O2SAT 96
[2021-04-15 07:13] VITALS: BP 123/87; PULSE 72; RESP 18; TEMP 35.8; O2SAT 97
[2021-04-15] MEDS: LORazepam 1 MG TABLET PO (08:59)
[2021-04-15] MEDS: ARIPiprazole 15 MG TABLET PO (08:59)
[2021-04-15] MEDS: FLUoxetine HCl 20 MG CAPSULE PO (08:59)
--- NOTE | 2021-04-15 17:32 | P.PNPSI_ITS ---
Subjective Subjective Date of Service: 04/15/21 Reason For Visit: Psychosis Interim History: pt seen on 04/15 pt reports no relief from Abilify, but denies any side-effects and agrees to titrate says not sleeping well, but continues to think it's just his sleep cycle being off and does not want meds for this Pt remains guarded and frequently says he rather not discuss it... He agrees however to help proposal writer know if Isabel is helping by informing on 2 parameters: 1. is he in less overall distress (emotional) 2. is he better able to discern if proposal writer/staff is trustable (vs a part of conspiracy)/or be less confused about what to think shared that only med that helped was Seroquel but he is not willing to retry since coming off it (for reasons he rather not discuss) was horrible event, causing hallucinations , not being able to tell if his mother was real, insominia for 4 days straight...He does not want any medication that is sedating since he feels need to be alert and focused. Wants to stick with [place] for now Diagnostics Vital Signs (24Hr): Vital Signs - 24 hr 04/14/21 19:25 04/15/21 07:13 Temperature 96.5 F L Pulse Rate 62 72 Respiratory Rate 14 18 Blood Pressure 121/64 123/87 Pulse Oximetry 96 97 Body Mass Index 22.1 Medications Medications Current Medications Generic Name Dose Route Start Last Admin Trade Name Freq PRN Reason Stop Dose Admin Acetaminophen 650 mg 04/06/21 21:39 Acetaminophen 325 Mg Tablet PO Q6H PRN Headache/Pain Mild Scale (1-3) Al Hydroxide/Mg Hydroxide 30 ml 04/06/21 21:39 Magnesium Hydrox/Alum Hydrox 30 Ml Oral.Susp PO Q6H PRN Heartburn/Nausea Aripiprazole 15 mg 04/15/21 09:00 04/15/21 08:59 Aripiprazole 15 Mg Tablet PO 15 mg DAILY FIDEL Administration Benztropine Mesylate 1 mg 04/08/21 17:22 Benztropine Mesylate 1 Mg Tablet PO DAILY PRN EPS Diphenhydramine HCl 50 mg 04/07/21 10:07 Diphenhydramine Hcl 25 Mg Tablet PO Q4H PRN agitation Fluoxetine HCl 20 mg 04/09/21 09:00 04/15/21 08:59 Fluoxetine Hcl 20 Mg Capsule PO 20 mg DAILY FIDEL Administration Haloperidol 5 mg 04/07/21 10:07 Haloperidol 5 Mg Tablet PO Q4H PRN agitation Hydroxyzine HCl 25 mg 04/06/21 21:39 Hydroxyzine Hcl 25 Mg Tablet PO BEDTIME PRN Anxiety Lorazepam 2 mg 04/07/21 10:07 Lorazepam 1 Mg Tablet PO Q4H PRN agitation Lorazepam 1 mg 04/12/21 12:14 04/15/21 08:59 Lorazepam 1 Mg Tablet PO 1 mg TID PRN Administration Anxiety Magnesium Hydroxide 30 ml 04/06/21 21:39 Milk Of Magnesia 30 Ml Oral.Susp PO DAILY PRN Constipation Trazodone HCl 50 mg 04/06/21 21:39 Trazodone Hcl 50 Mg Tablet PO BEDTIME PRN Insomnia Allergies Allergies Allergy/AdvReac Type Severity Reaction Status Date / Time olanzapine [OLANZAPINE] Allergy Severe FACIAL Verified 04/06/21 10:20 SWELLING Assessment & Plan Assessment & Plan (1) Schizoaffective disorder: Status: Acute Code(s): F25.9 - Schizoaffective disorder, unspecified Assessment and Plan: IMPRESSION: Patient is a 35-year-old male with history of psychotic illness, recently charged from am 3 a few weeks ago who self presented to the emergency room saying that he ran to the hospital and if he had a gun he would shoot himself. In ED patient was agitated and disorganized. On floor patient received Haldol Ativan and Benadryl as a p.r.n. for agitation and was then calm. Currently he does not want to talk but did agree to have his recent medications restarted. 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; -patient has history of medication trials and ECT (ECT in 2019); He is not sure what medication trials he has had but says they are all on helpful -patient was recently admitted about a month ago with similar presentation barricaded himself in his apartment with blocked windows; isolating expressing concern the government is out to get him to police department confessing crimes, sectioned to the ED) -this admission, patient self presented to the emergency room saying he was suicidal with thoughts or plans to stab himself with a knife or shoot himself with a gun; patient has been very guarded during this admission though he has started to disclose what he is struggling with. Patient has had several explosive episodes on the unit, yelling/screaming loudly, with intensity, with clenched fists (of note, while this is frightening and makes staff concerned about safety, he has made no threat to others and denies any HI, intention or urges to do so). He is very ambivalent about taking medications with a history of non adherence (currently says the don't work, are placebo ). Patient has no insight at all into his psychiatric illness/psychotic symptoms. Given the fact that patient was suicidal on admission, remains plagued by persecutory delusions with no insight and as a result tortures himself in the community, proposal writer and team agree that patient is in imminent risk for harm to self and requires continued inpatient psychiatric treatment. Plan was rob petition for civil commitment however patient decided to sign himself in -Medication hx: shared that only med that helped was Seroquel but he is not willing to retry since coming off it (for reasons he rather not discuss) was horrible event, causing hallucinations , not being able to tell if his mother was real, insominia for 4 days straight...He does not want any medication that is sedating since he feels need to be alert and focused. Wants to stick with Abilify for now Hospital course: very guarded on admission; intermittently willing to take Abilfy, prozac. Patient started to disclose more info. However after listening to the psychotic symptoms and mood stabilizing properties of Abilify, patient said he agrees to a trial of Abilify. Patient reports that he was feeling suicidal prior to admission but that all SI has resolved. -intermittent med adherent with Abilify; denies side effects; at one point said it seemed to help with racing thoughts and depression but has since he does not think this the case. -patient suffering from persecutory delusions and subsequent depression and anxiety Current med effect: *Pt remains guarded and frequently says he rather not discuss it... He agrees however to help proposal writer know if Abilify is helping by informing on 2 parameters: 1. is he in less overall distress (emotional) 2. is he better able to discern if proposal writer/staff is trustable (vs a part of conspiracy)/or be less confused about what to think PLAN: Patient signed himself in to the unit; rescinded 3 day notice Q 15 checks INCREASE TO Abilify 15 mg daily as pt is willing as it seems to have had some benefit; will titrate as needed benztropine 1 mg daily to p.r.n. dose (was scheduled) Prozac to 20 mg daily (down from 60 mg since patient was not taking in the community) Will seek collateral Med trials: Rispderal: possible some benefit? pt denies Abilify Haldol: dystonia? Olanzapine [place] Seroquel ECT recent 2020 hospitalizations: 09/2020 [facility] 01/2021 [facility] 03/2021 [place] current [place] Greater than 50% of the session was spent on counseling and/or coordination of care Reason for contiued inpatient stay Substantial Risk for: rapid decompensation
[2021-04-15 18:00] VITALS: RESP 16
[2021-04-16 06:00] VITALS: BP 117/80; PULSE 102; RESP 18; TEMP 36.8; O2SAT 96
--- NOTE | 2021-04-16 11:34 | HO.PSYCHPN ---
Subjective Subjective Date of Service: 04/16/21 Reason For Visit: Psychosis Interim History: Patient was seen in rounds today. He continues to be somewhat anxious and depressed. No signs of psychosis. He is somewhat guarded. He is compliant with treatment. No complaints or side effects. Eating and sleeping adequately. No changes were made today Medication Compliance: Yes Attending Groups: No Review of Systems Review of Systems Yes all other systems are reviewed and are negative Mental Status Exam Mental Status Exam Narrative: In today's visit he is alert, oriented and pleasant. Normal speech. Good eye contact. Affect is appropriate and varied. No acute signs of psychosis. No SI/HI. Cognitively intact. Judgment is intact Diagnostics Vital Signs (24Hr): Vital Signs - 24 hr 04/15/21 18:00 04/16/21 06:00 Temperature 98.2 F Pulse Rate 102 H Respiratory Rate 16 18 Blood Pressure 117/80 Pulse Oximetry 96 Body Mass Index 22.1 Medications Medications Current Medications Generic Name Dose Route Start Last Admin Trade Name Freq PRN Reason Stop Dose Admin Acetaminophen 650 mg 04/06/21 21:39 Acetaminophen 325 Mg Tablet PO Q6H PRN Headache/Pain Mild Scale (1-3) Al Hydroxide/Mg Hydroxide 30 ml 04/06/21 21:39 Magnesium Hydrox/Alum Hydrox 30 Ml Oral.Susp PO Q6H PRN Heartburn/Nausea Aripiprazole 15 mg 04/15/21 09:00 04/16/21 09:32 Aripiprazole 15 Mg Tablet PO Not Given DAILY FIDEL Benztropine Mesylate 1 mg 04/08/21 17:22 Benztropine Mesylate 1 Mg Tablet PO DAILY PRN EPS Diphenhydramine HCl 50 mg 04/07/21 10:07 Diphenhydramine Hcl 25 Mg Tablet PO Q4H PRN agitation Fluoxetine HCl 20 mg 04/09/21 09:00 04/16/21 09:32 Fluoxetine Hcl 20 Mg Capsule PO Not Given DAILY FIDEL Haloperidol 5 mg 04/07/21 10:07 Haloperidol 5 Mg Tablet PO Q4H PRN agitation Hydroxyzine HCl 25 mg 04/06/21 21:39 Hydroxyzine Hcl 25 Mg Tablet PO BEDTIME PRN Anxiety Lorazepam 2 mg 04/07/21 10:07 Lorazepam 1 Mg Tablet PO Q4H PRN agitation Lorazepam 1 mg 04/12/21 12:14 04/15/21 08:59 Lorazepam 1 Mg Tablet PO 1 mg TID PRN Administration Anxiety Magnesium Hydroxide 30 ml 04/06/21 21:39 Milk Of Magnesia 30 Ml Oral.Susp PO DAILY PRN Constipation Trazodone HCl 50 mg 04/06/21 21:39 Trazodone Hcl 50 Mg Tablet PO BEDTIME PRN Insomnia Allergies Allergies Allergy/AdvReac Type Severity Reaction Status Date / Time olanzapine [OLANZAPINE] Allergy Severe FACIAL Verified 04/06/21 10:20 SWELLING Assessment & Plan Assessment & Plan (1) Schizoaffective disorder: Status: Acute Code(s): F25.9 - Schizoaffective disorder, unspecified Assessment and Plan: IMPRESSION: Patient is a 35-year-old male with history of psychotic illness, recently charged from am 3 a few weeks ago who self presented to the emergency room saying that he ran to the hospital and if he had a gun he would shoot himself. In ED patient was agitated and disorganized. On floor patient received Haldol Ativan and Benadryl as a p.r.n. for agitation and was then calm. Currently he does not want to talk but did agree to have his recent medications restarted. Admit patient for safety and medication management Continue current regimen and plans Greater than 50% of the session was spent on counseling and/or coordination of care Reason for contiued inpatient stay Substantial Risk for: other
[2021-04-16] MEDS: FLUoxetine HCl 20 MG CAPSULE PO (11:43)
[2021-04-16] MEDS: ARIPiprazole 15 MG TABLET PO (11:43)
[2021-04-16 20:49] VITALS: BP 110/67; PULSE 61; RESP 18; TEMP 36.7; O2SAT 95
[2021-04-17 06:00] VITALS: BP 110/76; PULSE 68; RESP 14; TEMP 36.2; O2SAT 98
[2021-04-17] MEDS: FLUoxetine HCl 20 MG CAPSULE PO (08:20)
[2021-04-17] MEDS: ARIPiprazole 15 MG TABLET PO (08:20)
--- NOTE | 2021-04-17 09:55 | HO.PSYCHPN ---
Subjective Subjective Date of Service: 04/17/21 Reason For Visit: Psychosis Subjective Notes: Conditional Voluntary Interim History: patient was seen in rounds today. He continues to be stable on somewhat peripheral to the milieu. It a lot of pacing. He does have some superficial contact with others. Eating and sleeping adequately. No complaints or side effects. No changes were made today Medication Compliance: Yes Side effects from medications: No Attending Groups: Yes Mental Status Exam Mental Status Exam Narrative: in today's visit he is alert, oriented and pleasant. Normal speech. Good eye contact. Affect is concerned. No observed signs of psychosis. No SI/HI. Cognitively intact. Judgment is a Diagnostics Vital Signs (24Hr): Vital Signs - 24 hr 04/16/21 20:49 04/17/21 06:00 Temperature 98.1 F 97.2 F Pulse Rate 61 68 Respiratory Rate 18 14 Blood Pressure 110/67 110/76 Pulse Oximetry 95 98 Body Mass Index 22.1 Medications Medications Current Medications Generic Name Dose Route Start Last Admin Trade Name Freq PRN Reason Stop Dose Admin Acetaminophen 650 mg 04/06/21 21:39 Acetaminophen 325 Mg Tablet PO Q6H PRN Headache/Pain Mild Scale (1-3) Al Hydroxide/Mg Hydroxide 30 ml 04/06/21 21:39 Magnesium Hydrox/Alum Hydrox 30 Ml Oral.Susp PO Q6H PRN Heartburn/Nausea Aripiprazole 15 mg 04/15/21 09:00 04/17/21 08:20 Aripiprazole 15 Mg Tablet PO 15 mg DAILY FIDEL Administration Benztropine Mesylate 1 mg 04/08/21 17:22 Benztropine Mesylate 1 Mg Tablet PO DAILY PRN EPS Diphenhydramine HCl 50 mg 04/07/21 10:07 Diphenhydramine Hcl 25 Mg Tablet PO Q4H PRN agitation Fluoxetine HCl 20 mg 04/09/21 09:00 04/17/21 08:20 Fluoxetine Hcl 20 Mg Capsule PO 20 mg DAILY FIDEL Administration Haloperidol 5 mg 04/07/21 10:07 Haloperidol 5 Mg Tablet PO Q4H PRN agitation Hydroxyzine HCl 25 mg 04/06/21 21:39 Hydroxyzine Hcl 25 Mg Tablet PO BEDTIME PRN Anxiety Lorazepam 2 mg 04/07/21 10:07 Lorazepam 1 Mg Tablet PO Q4H PRN agitation Lorazepam 1 mg 04/12/21 12:14 04/15/21 08:59 Lorazepam 1 Mg Tablet PO 1 mg TID PRN Administration Anxiety Magnesium Hydroxide 30 ml 04/06/21 21:39 Milk Of Magnesia 30 Ml Oral.Susp PO DAILY PRN Constipation Trazodone HCl 50 mg 04/06/21 21:39 Trazodone Hcl 50 Mg Tablet PO BEDTIME PRN Insomnia Allergies Allergies Allergy/AdvReac Type Severity Reaction Status Date / Time olanzapine [OLANZAPINE] Allergy Severe FACIAL Verified 04/06/21 10:20 SWELLING Assessment & Plan Assessment & Plan (1) Schizoaffective disorder: Status: Acute Code(s): F25.9 - Schizoaffective disorder, unspecified Assessment and Plan: IMPRESSION: Patient is a 35-year-old male with history of psychotic illness, recently charged from am 3 a few weeks ago who self presented to the emergency room saying that he ran to the hospital and if he had a gun he would shoot himself. In ED patient was agitated and disorganized. On floor patient received Haldol Ativan and Benadryl as a p.r.n. for agitation and was then calm. Currently he does not want to talk but did agree to have his recent medications restarted. Admit patient for safety and medication management Continue current regimen and plans Greater than 50% of the session was spent on counseling and/or coordination of care Reason for contiued inpatient stay Substantial Risk for: other
[2021-04-17 18:00] VITALS: BP 94/65; PULSE 61; RESP 16; TEMP 36.7; O2SAT 97
[2021-04-18 06:00] VITALS: BP 113/72; PULSE 85; RESP 16; TEMP 36.3; O2SAT 96
[2021-04-18] MEDS: ARIPiprazole 15 MG TABLET PO (09:36)
[2021-04-18] MEDS: FLUoxetine HCl 20 MG CAPSULE PO (09:36)
--- NOTE | 2021-04-18 15:35 | P.PNPSI_ITS ---
Subjective Subjective Date of Service: 04/18/21 Reason For Visit: Psychosis Interim History: Patient seen on 04/18/2021 Pt remains with persecutory delusions but reports some benefit from abilfiy saying racing mind better; less bothersome though he felt he could not describe how; he says he is feeling overall less stressed and that his struggles to discern who he can trust are less intense. He denies med side-effects and agrees to titrating further to 30mg not wanting to wait for slower titration in order to see if this med can be more effective. Pt says i've been on so many meds before you can just increase it to 30mg. pt reports sleeping better discussed whether ok to talk w/ parents; he said in the past, every time he's given ABDI, he's asked for some things to not be disclosed; he says every time, this gets violated. Pt says his parents have been through so much with his i llness he does not want to worry them more so declines their involvement. He continues to deny any SI. He asks about discharge and says he's willing to stay another week. Mental Status Exam Mental Status Exam Narrative: Pt is alert and oriented; behavior is cooperative and calm; patient is in not in distress; dressed in casual cloths with appropriate hygiene; mood is depressed with anxious affect;? appropriate eye contact; Speech is normal rate, volume and prosody and not pressured; no psychomotor agitation/retardation present; thought process is goal directed, logical and linear; thought blocking; Thought content remains embroiled in concerns of being persecuted and on whether or not staff is a part of conspiracy against him, though he reports feeling a little less stressed about it; he denies AVH but reports he gets messages from conspirators through TV, radio, people, cellphone or email; he denies SI or HI; Patients insight and judgment are impaired. Diagnostics Vital Signs (24Hr): Vital Signs - 24 hr 04/17/21 18:00 04/18/21 06:00 Temperature 98.1 F 97.3 F Pulse Rate 61 85 Respiratory Rate 16 16 Blood Pressure 94/65 113/72 Pulse Oximetry 97 96 Body Mass Index 22.1 Medications Medications Current Medications Generic Name Dose Route Start Last Admin Trade Name Freq PRN Reason Stop Dose Admin Acetaminophen 650 mg 08/04/21 21:39 Acetaminophen 325 Mg Tablet PO Q6H PRN Headache/Pain Mild Scale (1-3) Al Hydroxide/Mg Hydroxide 30 ml 04/06/21 21:39 Magnesium Hydrox/Alum Hydrox 30 Ml Oral.Susp PO Q6H PRN Heartburn/Nausea Benztropine Mesylate 1 mg 04/08/21 17:22 Benztropine Mesylate 1 Mg Tablet PO DAILY PRN EPS Diphenhydramine HCl 50 mg 04/07/21 10:07 Diphenhydramine Hcl 25 Mg Tablet PO Q4H PRN agitation Fluoxetine HCl 20 mg 04/09/21 09:00 04/18/21 09:36 Fluoxetine Hcl 20 Mg Capsule PO 20 mg DAILY FIDEL Administration Haloperidol 5 mg 04/07/21 10:07 Haloperidol 5 Mg Tablet PO Q4H PRN agitation Hydroxyzine HCl 25 mg 04/06/21 21:39 Hydroxyzine Hcl 25 Mg Tablet PO BEDTIME PRN Anxiety Lorazepam 2 mg 04/07/21 10:07 Lorazepam 1 Mg Tablet PO Q4H PRN agitation Lorazepam 1 mg 04/12/21 12:14 04/15/21 08:59 Lorazepam 1 Mg Tablet PO 1 mg TID PRN Administration Anxiety Magnesium Hydroxide 30 ml 04/06/21 21:39 Milk Of Magnesia 30 Ml Oral.Susp PO DAILY PRN Constipation Trazodone HCl 50 mg 04/06/21 21:39 Trazodone Hcl 50 Mg Tablet PO BEDTIME PRN Insomnia Allergies Allergies Allergy/AdvReac Type Severity Reaction Status Date / Time olanzapine [OLANZAPINE] Allergy Severe FACIAL Verified 04/06/21 10:20 SWELLING Assessment & Plan Assessment & Plan (1) Schizoaffective disorder: Status: Acute Code(s): F25.9 - Schizoaffective disorder, unspecified Assessment and Plan: Patient is a 35-year-old male with history of psychotic illness, recently charged from am 3 a few weeks ago who self presented to the emergency room saying that he ran to the hospital and if he had a gun he would shoot himself.? In ED patient was agitated and disorganized.? On floor patient received Haldol Ativan and Benadryl as a p.r.n. for agitation and was then calm.? Currently he does not want to talk but did agree to have his recent medications restarted. 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 He is not sure what medication trials he has had but says they are all on helpful -patient was recently admitted about a month ago with similar presentation barricaded himself in his apartment with blocked windows; isolating expressing concern the government is out to get him? to police department? confessing crimes, sectioned to the ED) -this admission, patient self presented to the emergency room saying he was suicidal with thoughts or plans to stab himself with a knife or shoot himself with a gun; patient has been very guarded during this admission though he has started to disclose what he is struggling with. Patient has had several explosive episodes on the unit, yelling/screaming loudly, with intensity, with clenched fists (of note, while this is frightening and makes staff concerned about safety, he has made no threat to others and denies any HI, intention or urges to do so).? He is very ambivalent about taking medications with a history of non adherence (currently says the don't work, are placebo ).? Patient has no insight at all into his psychiatric illness/psychotic symptoms.? Given the fact that patient was suicidal on admission, remains plagued by persecutory delusions with no insight and as a result tortures himself in the community, telegraphic typewriter mechanic and team agree that patient is in imminent risk for harm to self and requires continued inpatient psychiatric treatment.? Plan was rob petition for civil commitment however patient decided to sign himself in -Medication hx: shared that only med that helped was Seroquel but he is not willing to retry since coming off it (for reasons he rather not discuss) was horrible event, causing hallucinations , not being able to tell if his mother was real, insominia for 4 days straight...He does not want any medication that is sedating since he feels need to be alert and focused. ? Wants to stick with Abilify for now Hospital course: very guarded on admission; intermittently willing to take Abilfy, prozac. Patient started to disclose more info.? However after listening to the psychotic symptoms and mood stabilizing properties of Abilify, patient said he agrees to a trial of Abilify.? Patient reports that he was feeling suicidal prior to admission but that all SI has resolved. -initially intermittent med adherent with Abilify; denies side effects; at one point said it seemed to help with racing thoughts and depression but has since he does not think this the case. -patient suffering from persecutory delusions and subsequent depression and anxiety -some modest improvement on Abilfiy 15mg; agrees to go to 30mg (pt wants to see christine if this is a beneficial medication and does not want to wait for a slower titration; telegraphic typewriter mechanic agrees with this approach). Current med effect: *Pt remains guarded and frequently says he rather not discuss it... He agrees however to help telegraphic typewriter mechanic know if Abilify is helping by informing on 2 parameters: 1. is he in less overall distress (emotional) 2. is he better able to discern if telegraphic typewriter mechanic/staff is trustable (vs a part of conspiracy)/or be less confused about what to think PLAN: Patient signed himself in to the unit; rescinded 3 day notice Q 15 checks INCREASE TO Abilify 30 mg daily (on 04/17/21) as pt is willing as it seems to have had some benefit; ?benztropine 1 mg daily to p.r.n. dose (was scheduled) Prozac to 20 mg daily (down from 60 mg since patient was not taking in the community) Will seek collateral though currently pt does not want parents involved Med trials: Rispderal: possible some benefit? pt denies Abilify Haldol: dystonia? Olanzapine [place] Seroquel ECT recent 2020 hospitalizations: 09/2020 [facility] 01/2021 [facility] 03/2021 [place] current [place] Greater than 50% of the session was spent on counseling and/or coordination of care Reason for contiued inpatient stay Substantial Risk for: rapid decompensation
[2021-04-18] MEDS: ARIPiprazole 5 MG TABLET PO (16:04)
[2021-04-18 16:49] VITALS: BP 120/74; PULSE 57; RESP 16; TEMP 36.3; O2SAT 96
[2021-04-18 21:01] VITALS: BP 131/87; PULSE 63; RESP 17; TEMP 36.2; O2SAT 97
[2021-04-19 06:00] VITALS: BP 101/64; PULSE 53; TEMP 36; O2SAT 96
[2021-04-19] MEDS: FLUoxetine HCl 20 MG CAPSULE PO (08:54)
[2021-04-19] MEDS: ARIPiprazole 30 MG TABLET PO (08:54)
--- NOTE | 2021-04-19 17:14 | HO.PSYCHPN ---
Subjective Subjective Date of Service: 04/19/21 Reason For Visit: Psychosis Interim History: Patient seen on 04/19 Patient reports that he is feeling a little better, less intensely upset about thoughts. Patient continues to say he does not want to discuss any further. He says he is sleeping back to normal, eating fine and that he has no SI. Patient however reiterates that he does not want to discuss much more. Transportation Lead inquired about history of fluoxetine which he says was probably for depression but he never took it. He says he does not mind taking it now. Patient denies any side effects from medication Medication Compliance: Yes Side effects from medications: No Mental Status Exam Mental Status Exam Narrative: Pt is alert and oriented; behavior is cooperative and calm though he remains guarded; patient is in not in distress; dressed in casual cloths with appropriate hygiene; mood is depressed with anxious affect;? appropriate eye contact; Speech is normal rate, volume and prosody and not pressured; no psychomotor agitation/retardation present; thought process is goal directed, logical and linear; some thought blocking; Thought content remains embroiled in concerns of being persecuted and on whether or not staff is a part of conspiracy against him, though he reports feeling a little less stressed about it; he denies AVH but reports he gets messages from conspirators through TV, radio, people, cellphone or email; he denies SI or HI; Patients insight and judgment are impaired. Diagnostics Vital Signs (24Hr): Vital Signs - 24 hr 04/18/21 21:01 04/19/21 06:00 Temperature 97.2 F 96.8 F Pulse Rate 63 53 Respiratory Rate 17 Blood Pressure 131/87 101/64 Pulse Oximetry 97 96 Body Mass Index 22.1 Medications Medications Current Medications Generic Name Dose Route Start Last Admin Trade Name Freq PRN Reason Stop Dose Admin Acetaminophen 650 mg 04/06/21 21:39 Acetaminophen 325 Mg Tablet PO Q6H PRN Headache/Pain Mild Scale (1-3) Al Hydroxide/Mg Hydroxide 30 ml 04/06/21 21:39 Magnesium Hydrox/Alum Hydrox 30 Ml Oral.Susp PO Q6H PRN Heartburn/Nausea Aripiprazole 30 mg 04/19/21 09:00 04/19/21 08:54 Aripiprazole 30 Mg Tablet PO 30 mg DAILY FIDEL Administration Benztropine Mesylate 1 mg 04/08/21 17:22 Benztropine Mesylate 1 Mg Tablet PO DAILY PRN EPS Diphenhydramine HCl 50 mg 04/07/21 10:07 Diphenhydramine Hcl 25 Mg Tablet PO Q4H PRN agitation Fluoxetine HCl 20 mg 04/09/21 09:00 04/19/21 08:54 Fluoxetine Hcl 20 Mg Capsule PO 20 mg DAILY FIDEL Administration Haloperidol 5 mg 04/07/21 10:07 Haloperidol 5 Mg Tablet PO Q4H PRN agitation Hydroxyzine HCl 25 mg 04/06/21 21:39 Hydroxyzine Hcl 25 Mg Tablet PO BEDTIME PRN Anxiety Magnesium Hydroxide 30 ml 04/06/21 21:39 Milk Of Magnesia 30 Ml Oral.Susp PO DAILY PRN Constipation Trazodone HCl 50 mg 04/06/21 21:39 Trazodone Hcl 50 Mg Tablet PO BEDTIME PRN Insomnia Allergies Allergies Allergy/AdvReac Type Severity Reaction Status Date / Time olanzapine [OLANZAPINE] Allergy Severe FACIAL Verified 04/06/21 10:20 SWELLING Assessment & Plan Assessment & Plan (1) Schizoaffective disorder: Status: Acute Code(s): F25.9 - Schizoaffective disorder, unspecified Assessment and Plan: Patient is a 35-year-old male with history of psychotic illness, recently charged from am 3 a few weeks ago who self presented to the emergency room saying that he ran to the hospital and if he had a gun he would shoot himself.? In ED patient was agitated and disorganized.? On floor patient received Haldol Ativan and Benadryl as a p.r.n. for agitation and was then calm.? Currently he does not want to talk but did agree to have his recent medications restarted. 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 He is not sure what medication trials he has had but says they are all on helpful -patient was recently admitted about a month ago with similar presentation barricaded himself in his apartment with blocked windows; isolating expressing concern the government is out to get him? to police department? confessing crimes, sectioned to the ED) -this admission, patient self presented to the emergency room saying he was suicidal with thoughts or plans to stab himself with a knife or shoot himself with a gun; patient has been very guarded during this admission though he has started to disclose what he is struggling with. Patient has had several explosive episodes on the unit, yelling/screaming loudly, with intensity, with clenched fists (of note, while this is frightening and makes staff concerned about safety, he has made no threat to others and denies any HI, intention or urges to do so).? He is very ambivalent about taking medications with a history of non adherence (currently says the don't work, are placebo ).? Patient has no insight at all into his psychiatric illness/psychotic symptoms.? Given the fact that patient was suicidal on admission, remains plagued by persecutory delusions with no insight and as a result tortures himself in the community, life insurance underwriter and team agree that patient is in imminent risk for harm to self and requires continued inpatient psychiatric treatment.? Plan was rob petition for civil commitment however patient decided to sign himself in -Medication hx: shared that only med that helped was Seroquel but he is not willing to retry since coming off it (for reasons he rather not discuss) was horrible event, causing hallucinations , not being able to tell if his mother was real, insominia for 4 days straight...He does not want any medication that is sedating since he feels need to be alert and focused. ? Wants to stick with Abilify for now Hospital course: very guarded on admission; intermittently willing to take Abilfy, prozac. Patient started to disclose more info.? However after listening to the psychotic symptoms and mood stabilizing properties of Abilify, patient said he agrees to a trial of Abilify.? Patient reports that he was feeling suicidal prior to admission but that all SI has resolved. -initially intermittent med adherent with Abilify; denies side effects; at one point said it seemed to help with racing thoughts and depression but has since he does not think this the case. -patient suffering from persecutory delusions and subsequent depression and anxiety -some modest improvement on Abilfiy 15mg; agrees to go to 30mg (pt wants to see christine if this is a beneficial medication and does not want to wait for a slower titration; life insurance underwriter agrees with this approach). -Abilify was increased to 30 mg and patient reports some modest improvement saying feels overall a little less stressed by his chronic worries a little more able to feel comfortable with staff; however he remains guarded. Current med effect: *Pt remains guarded and frequently says he rather not discuss it... He agrees however to help life insurance underwriter know if Abilify is helping by informing on 2 parameters: 1. is he in less overall distress (emotional) 2. is he better able to discern if life insurance underwriter/staff is trustable (vs a part of conspiracy)/or be less confused about what to think PLAN: Patient signed himself in to the unit; rescinded 3 day notice Q 15 checks INCREASE TO Abilify 30 mg daily (on 04/17/21) as pt is willing as it seems to have had some benefit; ?benztropine 1 mg daily to p.r.n. dose (was scheduled) Prozac to 20 mg daily (down from 60 mg since patient was not taking in the community) Will seek collateral though currently pt does not want parents involved Med trials: Rispderal: possible some benefit? pt denies Abilify Haldol: dystonia? Olanzapine [place] Seroquel ECT recent 2020 hospitalizations: 09/2020 [facility] 01/2021 [facility] 03/2021 [place] Greater than 50% of the session was spent on counseling and/or coordination of care Reason for contiued inpatient stay Substantial Risk for: rapid decompensation
[2021-04-19 18:30] VITALS: BP 126/78; PULSE 75; TEMP 37.1
[2021-04-20 06:37] VITALS: BP 96/55; PULSE 52; RESP 14; O2SAT 97
[2021-04-20] MEDS: ARIPiprazole 30 MG TABLET PO (08:39)
[2021-04-20] MEDS: FLUoxetine HCl 20 MG CAPSULE PO (08:39)
--- NOTE | 2021-04-20 12:43 | HO.PSYCHPN ---
Subjective Subjective Date of Service: 04/20/21 Reason For Visit: Psychosis Interim History: Patient seen on 04/20 Patient reports that he does feel better, even more so than yesterday saying he is overall less stressed by his thoughts. Animal Treatment Investigator asked patient about last night's episode where he grabbed his head and screamed and said the medications are dose placebos. Patient said that yes he did have a short lived breakdown however it resolved and I am doing better today. Patient does not want to discuss about this episode but reiterates he is doing better and that today things feel more tolerable. Animal Treatment Investigator asked if current dose of Abilify is giving him the same kind of relief he had when on Seroquel to which patient reports that they were treating 2 very different things and cannot be compared. Patient said he would like to stop talking to which fiction and nonfiction writer prose agreed. Mental Status Exam Mental Status Exam Narrative: Pt is alert and oriented; behavior is cooperative, holding his head in hands; calm though he remains guarded; dressed in casual cloths with appropriate hygiene; mood is better though anxious affect;?Limited and somewhat avoidant eye contact; Speech is normal rate, volume and prosody and not pressured; some psychomotor agitation present as pt paces hallway all day; thought process is goal directed, logical and linear; some thought blocking; Thought content remains embroiled in concerns of being persecuted and on whether or not staff is a part of conspiracy against him, though he reports feeling a little less stressed about it; he denies AVH but reports he gets messages from conspirators through TV, radio, people, cellphone or email; he denies SI or HI; Patients insight and judgment are impaired. Diagnostics Vital Signs (24Hr): Vital Signs - 24 hr 04/19/21 18:30 04/20/21 06:37 Temperature 98.7 F Pulse Rate 75 52 Respiratory Rate 14 Blood Pressure 126/78 96/55 L Pulse Oximetry 97 Body Mass Index 22.1 Medications Medications Current Medications Generic Name Dose Route Start Last Admin Trade Name Freq PRN Reason Stop Dose Admin Acetaminophen 650 mg 04/06/21 21:39 Acetaminophen 325 Mg Tablet PO Q6H PRN Headache/Pain Mild Scale (1-3) Al Hydroxide/Mg Hydroxide 30 ml 04/06/21 21:39 Magnesium Hydrox/Alum Hydrox 30 Ml Oral.Susp PO Q6H PRN Heartburn/Nausea Aripiprazole 30 mg 04/19/21 09:00 04/20/21 08:39 Aripiprazole 30 Mg Tablet PO 30 mg DAILY FIDEL Administration Benztropine Mesylate 1 mg 04/08/21 17:22 Benztropine Mesylate 1 Mg Tablet PO DAILY PRN EPS Diphenhydramine HCl 50 mg 04/07/21 10:07 Diphenhydramine Hcl 25 Mg Tablet PO Q4H PRN agitation Fluoxetine HCl 20 mg 04/09/21 09:00 04/20/21 08:39 Fluoxetine Hcl 20 Mg Capsule PO 20 mg DAILY FIDEL Administration Haloperidol 5 mg 04/07/21 10:07 Haloperidol 5 Mg Tablet PO Q4H PRN agitation Hydroxyzine HCl 25 mg 04/06/21 21:39 Hydroxyzine Hcl 25 Mg Tablet PO BEDTIME PRN Anxiety Magnesium Hydroxide 30 ml 04/06/21 21:39 Milk Of Magnesia 30 Ml Oral.Susp PO DAILY PRN Constipation Trazodone HCl 50 mg 04/06/21 21:39 Trazodone Hcl 50 Mg Tablet PO BEDTIME PRN Insomnia Allergies Allergies Allergy/AdvReac Type Severity Reaction Status Date / Time olanzapine [OLANZAPINE] Allergy Severe FACIAL Verified 04/06/21 10:20 SWELLING Assessment & Plan Assessment & Plan (1) Schizoaffective disorder: Status: Acute Code(s): F25.9 - Schizoaffective disorder, unspecified Assessment and Plan: Patient is a 35-year-old male with history of psychotic illness, recently charged from am 3 a few weeks ago who self presented to the emergency room saying that he ran to the hospital and if he had a gun he would shoot himself.? In ED patient was agitated and disorganized.? On floor patient received Haldol Ativan and Benadryl as a p.r.n. for agitation and was then calm.? Currently he does not want to talk but did agree to have his recent medications restarted. 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 He is not sure what medication trials he has had but says they are all on helpful -patient was recently admitted about a month ago with similar presentation barricaded himself in his apartment with blocked windows; isolating expressing concern the government is out to get him? to police department? confessing crimes, sectioned to the ED) -this admission, patient self presented to the emergency room saying he was suicidal with thoughts or plans to stab himself with a knife or shoot himself with a gun; patient has been very guarded during this admission though he has started to disclose what he is struggling with. Patient has had several explosive episodes on the unit, yelling/screaming loudly, with intensity, with clenched fists (of note, while this is frightening and makes staff concerned about safety, he has made no threat to others and denies any HI, intention or urges to do so).? He is very ambivalent about taking medications with a history of non adherence (currently says the don't work, are placebo ).? Patient has no insight at all into his psychiatric illness/psychotic symptoms.? Given the fact that patient was suicidal on admission, remains plagued by persecutory delusions with no insight and as a result tortures himself in the community, fiction and nonfiction writer prose and team agree that patient is in imminent risk for harm to self and requires continued inpatient psychiatric treatment.? Plan was rob petition for civil commitment however patient decided to sign himself in -Medication hx: shared that only med that helped was Seroquel but he is not willing to retry since coming off it (for reasons he rather not discuss) was horrible event, causing hallucinations , not being able to tell if his mother was real, insominia for 4 days straight...He does not want any medication that is sedating since he feels need to be alert and focused. ? Wants to stick with Abilify for now Hospital course: very guarded on admission; intermittently willing to take Abilfy, prozac. Patient started to disclose more info.? However after listening to the psychotic symptoms and mood stabilizing properties of Abilify, patient said he agrees to a trial of Abilify.? Patient reports that he was feeling suicidal prior to admission but that all SI has resolved. -initially intermittent med adherent with Abilify; denies side effects; at one point said it seemed to help with racing thoughts and depression but has since he does not think this the case. -patient suffering from persecutory delusions and subsequent depression and anxiety -some modest improvement on Abilfiy 15mg; agrees to go to 30mg (pt wants to see christine if this is a beneficial medication and does not want to wait for a slower titration; fiction and nonfiction writer prose agrees with this approach). -Abilify was increased to 30 mg and patient reports some modest improvement saying feels overall a little less stressed by his chronic worries a little more able to feel comfortable with staff; however he remains guarded. how to assess Current med effect: *Pt remains guarded and frequently says he rather not discuss it... He agrees however to help fiction and nonfiction writer prose know if Abilify is helping by informing on 2 parameters: 1. is he in less overall distress (emotional) 2. is he better able to discern if fiction and nonfiction writer prose/staff is trustable (vs a part of conspiracy)/or be less confused about what to think PLAN: Patient signed himself in to the unit; rescinded 3 day notice Q 15 checks INCREASEd TO Abilify 30 mg daily (on 04/17/21) as pt is willing as it seems to have had some benefit; ?benztropine 1 mg daily to p.r.n. dose (was scheduled) Prozac to 20 mg daily (down from 60 mg since patient was not taking in the community) Will seek collateral though currently pt does not want parents involved Med trials: Rispderal: possible some benefit? pt denies Abilify Haldol: dystonia? Olanzapine [place] Seroquel ECT recent 2020 hospitalizations: 09/2020 [facility] 01/2021 [facility] 03/2021 [place] Greater than 50% of the session was spent on counseling and/or coordination of care Reason for contiued inpatient stay Substantial Risk for: rapid decompensation
[2021-04-20 18:00] VITALS: BP 95/52; PULSE 53; TEMP 36.5
[2021-04-21 06:52] VITALS: BP 95/51; PULSE 56; TEMP 36.5; O2SAT 95
[2021-04-21 07:00] VITALS: BMI 22.1
[2021-04-21] MEDS: ARIPiprazole 30 MG TABLET PO (08:32)
[2021-04-21] MEDS: FLUoxetine HCl 20 MG CAPSULE PO (08:32)
--- NOTE | 2021-04-21 11:11 | HO.PSYCHPN ---
Subjective Subjective Date of Service: 04/21/21 Reason For Visit: Psychosis Interim History: Patient in more distress today. He says that while some things are better there are other things that are worse; again he does not want to discuss it. Director Of Assessment did however ask patient to try and help loan underwriter understand. He says it does not matter what I do i'm always wrong... Patient said that he had a very brief moment of Hope the other day but it is so ?fleeting.? He says that nothing is working, the medications are not working. He says he is in this own private hell that is made just for him and there is nothing he can do about it and there is nothing this loan underwriter can do about it. He asks when can get discharged...his plan is to go to the police again and see if they will follow through with arrest and conviction. Director Of Assessment found a curious that he prefers to go to the police which is about punishment rather than stay here with a physician who was about treatment. Patient said that he is not sure that this loan underwriter or is really about treatment. Patient said that he was talking with another peer who told him if he was suffering the same thing as this patient he would go hang himself; soon after that conversation Dilshad said and then I saw you [this loan underwriter] with a rope hanging out of your bag, so i can't trust you... (loan underwriter does have a water bottle with a short rope attached to it and a latch so it will not fall out). Director Of Assessment explained that rope and water bottle were together before loan underwriter met this patient but patient said it does not matter. Director Of Assessment tried to appeal to patient's sense of logic saying that was suffering in the community and so what is the big difference if he suffering on the inpatient unit; patient said that it is worse here but does not elaborate. Director Of Assessment expressed concern that if patient leaves before his symptoms are reduced, that he will very likely end up coming back to the inpatient unit. Patient did agree with this. However he said he has been on every medication and nothing's helped. Director Of Assessment offer that patient has not been on every medication and there is 1 loan underwriter would like to try, or clozapine. Director Of Assessment explained the risks/side effects of this specific antipsychotic medication and patient said okay fine that he is willing to stay longer and willing to try clozapine and accepts the weekly blood draws. Patient said he wanted to end conversation and loan underwriter agreed. Mental Status Exam Mental Status Exam Narrative: Pt is alert and oriented; behavior is marginally cooperative, holding his head in hands and in emotional anguish, guarded; dressed in casual cloths with appropriate hygiene; mood is worse with anxious/distressed affect;?Limited and somewhat avoidant eye contact; Speech is normal rate, volume and prosody and not pressured; psychomotor agitation present as patient stands up from chair, paces room...thought process is goal directed, logical and linear; some thought blocking; Thought content remains embroiled in concerns of being persecuted and on whether or not staff is a part of conspiracy against him; he denies AVH but has reported he gets messages from conspirators through TV, radio, people, cellphone or email; suicidal ideation is on his mind though he denies plans or intent; no HI; Patients insight and judgment are impaired. Diagnostics Vital Signs (24Hr): Vital Signs - 24 hr 04/20/21 18:00 04/21/21 06:52 Temperature 97.7 F 97.7 F Pulse Rate 53 56 Blood Pressure 95/52 L 95/51 L Pulse Oximetry 95 Body Mass Index 22.1 Medications Medications Current Medications Generic Name Dose Route Start Last Admin Trade Name Marioq PRN Reason Stop Dose Admin Acetaminophen 650 mg 04/06/21 21:39 Acetaminophen 325 Mg Tablet PO Q6H PRN Headache/Pain Mild Scale (1-3) Al Hydroxide/Mg Hydroxide 30 ml 04/06/21 21:39 Magnesium Hydrox/Alum Hydrox 30 Ml Oral.Susp PO Q6H PRN Heartburn/Nausea Aripiprazole 30 mg 04/19/21 09:00 04/21/21 08:32 Aripiprazole 30 Mg Tablet PO 30 mg DAILY FIDEL Administration Benztropine Mesylate 1 mg 04/08/21 17:22 Benztropine Mesylate 1 Mg Tablet PO DAILY PRN EPS Diphenhydramine HCl 50 mg 04/07/21 10:07 Diphenhydramine Hcl 25 Mg Tablet PO Q4H PRN agitation Fluoxetine HCl 20 mg 04/09/21 09:00 04/21/21 08:32 Fluoxetine Hcl 20 Mg Capsule PO 20 mg DAILY FIDEL Administration Haloperidol 5 mg 04/07/21 10:07 Haloperidol 5 Mg Tablet PO Q4H PRN agitation Hydroxyzine HCl 25 mg 04/06/21 21:39 Hydroxyzine Hcl 25 Mg Tablet PO BEDTIME PRN Anxiety Magnesium Hydroxide 30 ml 04/06/21 21:39 Milk Of Magnesia 30 Ml Oral.Susp PO DAILY PRN Constipation Trazodone HCl 50 mg 04/06/21 21:39 Trazodone Hcl 50 Mg Tablet PO BEDTIME PRN Insomnia Allergies Allergies Allergy/AdvReac Type Severity Reaction Status Date / Time olanzapine [OLANZAPINE] Allergy Severe FACIAL Verified 04/06/21 10:20 SWELLING Assessment & Plan Assessment & Plan (1) Schizoaffective disorder: Status: Acute Code(s): F25.9 - Schizoaffective disorder, unspecified Assessment and Plan: Patient is a 35-year-old male with history of psychotic illness, recently charged from am 3 a few weeks ago who self presented to the emergency room saying that he ran to the hospital and if he had a gun he would shoot himself.? In ED patient was agitated and disorganized.? On floor patient received Haldol Ativan and Benadryl as a p.r.n. for agitation and was then calm.? Currently he does not want to talk but did agree to have his recent medications restarted. 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 He is not sure what medication trials he has had but says they are all on helpful -patient was recently admitted about a month ago with similar presentation barricaded himself in his apartment with blocked windows; isolating expressing concern the government is out to get him? to police department? confessing crimes, sectioned to the ED) -this admission, patient self presented to the emergency room saying he was suicidal with thoughts or plans to stab himself with a knife or shoot himself with a gun; patient has been very guarded during this admission though he has started to disclose what he is struggling with. Patient has had several explosive episodes on the unit, yelling/screaming loudly, with intensity, with clenched fists (of note, while this is frightening and makes staff concerned about safety, he has made no threat to others and denies any HI, intention or urges to do so).? He is very ambivalent about taking medications with a history of non adherence (currently says the don't work, are placebo ).? Patient has no insight at all into his psychiatric illness/psychotic symptoms.? Given the fact that patient was suicidal on admission, remains plagued by persecutory delusions with no insight and as a result tortures himself in the community, loan underwriter and team agree that patient is in imminent risk for harm to self and requires continued inpatient psychiatric treatment.? Plan was rob petition for civil commitment however patient decided to sign himself in -Medication hx: shared that only med that helped was Seroquel but he is not willing to retry since coming off it (for reasons he rather not discuss) was horrible event, causing hallucinations , not being able to tell if his mother was real, insominia for 4 days straight...He does not want any medication that is sedating since he feels need to be alert and focused. ? -willing to try clozapine Hospital course: very guarded on admission; intermittently willing to take Abilfy, prozac. Patient started to disclose more info.? However after listening to the psychotic symptoms and mood stabilizing properties of Abilify, patient said he agrees to a trial of Abilify.? Patient reports that he was feeling suicidal prior to admission but that all SI has resolved. -initially intermittent med adherent with Abilify; denies side effects; at one point said it seemed to help with racing thoughts and depression but has since he does not think this the case. -patient suffering from persecutory delusions and subsequent depression and anxiety -some modest improvement on Abilfiy 15mg; agrees to go to 30mg (pt wants to see christine if this is a beneficial medication and does not want to wait for a slower titration; loan underwriter agrees with this approach). -Abilify was increased to 30 mg and patient reports some modest improvement saying feels overall a little less stressed by his chronic worries a little more able to feel comfortable with staff; however he remains guarded. -patient has been on Abilify 30 mg for about 3 days now; at 1st it seemed there was some improvement however today he reports that he is just as tormented as ever and that medication is not effective; patient references his delusional thoughts that he is being persecuted and there is no way to avoid it. He says it does not matter what I do i'm always wrong... Patient however says he is willing to stay and try clozapine trial. how to assess Current med effect: *Pt remains guarded and frequently says he rather not discuss it... He agrees however to help loan underwriter know if Abilify is helping by informing on 2 parameters: 1. is he in less overall distress (emotional) 2. is he better able to discern if loan underwriter/staff is trustable (vs a part of conspiracy)/or be less confused about what to think PLAN: Patient signed himself in to the unit; rescinded 3 day notice, ON CV Q 15 checks -Will STARTclozapine (patient reports that Seroquel was most effective in the past, though he said it was for something totally different; clozapine has some similarities to Seroquel as they are both low potency; pt has had numerous other med trials with little to no effect; agrees to blood draws; loan underwriter reviewed risks/side effects of Clozapine) -Will TAPER AND DC Abilify (it seems Abilify 30 mg daily had some benefit but not so much) ?benztropine 1 mg daily to p.r.n. dose (was scheduled) Prozac to 20 mg daily (down from 60 mg since patient was not taking in the community) Will seek collateral though currently pt does not want parents involved Med trials: Rispderal: possible some benefit? pt denies Abilify Haldol: dystonia? Olanzapine [place] Seroquel ECT recent 2020 hospitalizations: 09/2020 [facility] 01/2021 [facility] 03[place]20[place] Greater than 50% of the session was spent on counseling and/or coordination of care Reason for contiued inpatient stay Substantial Risk for: rapid decompensation
--- NOTE | 2021-04-21 11:29 | PC.NURSE ---
Signed three day up on 04/26/2021 aware. Social Work aware and Payal Truong aware.
[2021-04-21 18:00] VITALS: BP 90/55; PULSE 52; TEMP 36.8
[2021-04-22 06:00] VITALS: BP 107/66; PULSE 50; RESP 16; TEMP 36.2; O2SAT 95
[2021-04-22 08:16] LABS: MANUAL DIFF FLAG NO
[2021-04-22 08:19] LABS: Basophils Percent Auto 0.7 % (0-2); Eosinophils Absolute Auto 0.2 X10*3/uL (0.0-0.4); Eosinophils Percent Auto 4.1 % (0-4); Hematocrit 43.6 % (42-52); Hemoglobin 14.8 g/dl (14.0-18.0); Imm Gran Abs Auto 0.02 X10*3/uL (0.00-0.03); Imm Gran Pct Auto 0.3 % (0.0-0.4); Lymphocytes Absolute Auto 1.6 X10*3/uL (1.2-4.9); Lymphocytes Percent Auto 27.5 % (20-40); Mean Corpuscular HGB Conc 33.9 g/dl (31.0-36.0); Mean Corpuscular Hemoglobin 30.2 pg (27.0-33.0); Mean Platelet Volume 10.7 fL (9.4-12.4); Monocytes Absolute Auto 0.6 X10*3/uL (0.1-1.2); Monocytes Percent Auto 9.3 % (2-11); Neutrophils Absolute Auto 3.4 X10*3/uL (2.0-8.3); Neutrophils Percent Auto 58.1 % (45-73); Platelet Count 225 X10*3/uL (160-400); White Blood Count 5.9 X10*3/uL (4.8-10.8)
[2021-04-22] MEDS: ARIPiprazole 30 MG TABLET PO (09:46)
[2021-04-22] MEDS: FLUoxetine HCl 20 MG CAPSULE PO (09:46)
[2021-04-22] MEDS: cloZAPine 25 MG TABLET 12.5 MG PO ×2 (09:47→22:32)
--- NOTE | 2021-04-22 11:59 | PC.NURSE ---
Pt retracted 3 day notice. MD EARLY UR aware.
--- NOTE | 2021-04-22 12:17 | HO.PSYCHPN ---
Subjective Subjective Date of Service: 04/22/21 Reason For Visit: Psychosis Subjective Notes: Conditional Voluntary and 3 Day Interim History: Patient told teletypewriter operator that he signed a 3 day notice. He asked whether or not teletypewriter operator would petition the court for civil commitment if he stop taking his medications all together and teletypewriter operator said that it is a distinct possibility. Patient said that he does not mind trying the medications but does not like the idea of having to be on the unit for weeks while clozapine is being titrated. However he said that he would be willing to agree to continue taking medications as an outpatient. He denies any SI. Loom Mechanic expressed that this was an interesting proposal and that if patient was willing to commit to continuing medications under the care of a psychiatrist or psychiatric provider, it may be possible for him to work out his medication regimen as an outpatient. Patient said that he would rescind his 3 day for now and agreed to titrating clozapine as quickly as possible to see if it is affective, while simultaneously remaining on Abilify. Mental Status Exam Mental Status Exam Narrative: Pt is alert and oriented; behavior is marginally cooperative, guarded; dressed in casual cloths with unkempt hair but appropriate hygiene; mood is 'Ok with anxious/distressed affect;?Limited and somewhat avoidant eye contact; Speech is normal rate, volume and prosody and not pressured; no? psychomotor agitation today; thought process is goal directed, logical and linear; some thought blocking but less; Thought content is on discharge and medication regimen but otherwise remains embroiled in concerns of being persecuted and on whether or not staff is a part of conspiracy against him; he denies AVH but has reported he gets messages from conspirators through TV, radio, people, cellphone or email; denies SI; no HI; Patients insight and judgment are impaired. Diagnostics Vital Signs (24Hr): Vital Signs - 24 hr 04/21/21 18:00 04/22/21 06:00 Temperature 98.3 F 97.1 F Pulse Rate 52 50 Respiratory Rate 16 Blood Pressure 90/55 L 107/66 Pulse Oximetry 95 Body Mass Index 22.1 Labs Results: 04/22/21 07:55 Labs: Laboratory Results - last 48 hr 04/22/21 07:55 WBC 5.9 RBC 4.90 Hgb 14.8 Hct 43.6 MCV 89.0 MCH 30.2 MCHC 33.9 RDW 13.0 Plt Count 225 MPV 10.7 Immature Gran % (Auto) 0.3 Neut % (Auto) 58.1 Lymph % (Auto) 27.5 Garza % (Auto) 9.3 Eos % (Auto) 4.1 H Baso % (Auto) 0.7 Lymph # (Auto) 1.6 Garza # (Auto) 0.6 Eos # (Auto) 0.2 Baso # (Auto) 0.0 Abs Immat Gran (auto) 0.02 Absolute Neuts (auto) 3.4 Absolute Nucleated RBC 0.000 Nucleated RBC % (auto) 0.0 Medications Medications Current Medications Generic Name Dose Route Start Last Admin Trade Name Freq PRN Reason Stop Dose Admin Acetaminophen 650 mg 04/06/21 21:39 Acetaminophen 325 Mg Tablet PO Q6H PRN Headache/Pain Mild Scale (1-3) Al Hydroxide/Mg Hydroxide 30 ml 04/06/21 21:39 Magnesium Hydrox/Alum Hydrox 30 Ml Oral.Susp PO Q6H PRN Heartburn/Nausea Aripiprazole 30 mg 04/19/21 09:00 04/22/21 09:46 Aripiprazole 30 Mg Tablet PO 30 mg DAILY FIDEL Administration Benztropine Mesylate 1 mg 04/08/21 17:22 Benztropine Mesylate 1 Mg Tablet PO DAILY PRN EPS Clozapine 12.5 mg 04/21/21 21:00 04/22/21 09:47 Clozapine 25 Mg Tablet PO 04/22/21 23:59 12.5 mg BID FIDEL Administration Clozapine 25 mg 04/23/21 08:00 Clozapine 25 Mg Tablet PO 04/23/21 23:59 BID FIDEL Clozapine 50 mg 04/24/21 09:00 Clozapine 25 Mg Tablet PO 04/24/21 23:59 BID FIDEL Clozapine 75 mg 04/25/21 09:00 Clozapine 25 Mg Tablet PO 04/25/21 23:59 BID FIDEL Clozapine 100 mg 04/26/21 09:00 Clozapine 100 Mg Tablet PO BEDTIME FIDEL Diphenhydramine HCl 50 mg 04/07/21 10:07 Diphenhydramine Hcl 25 Mg Tablet PO Q4H PRN agitation Fluoxetine HCl 20 mg 04/09/21 09:00 04/22/21 09:46 Fluoxetine Hcl 20 Mg Capsule PO 20 mg DAILY FIDEL Administration Haloperidol 5 mg 04/07/21 10:07 Haloperidol 5 Mg Tablet PO Q4H PRN agitation Hydroxyzine HCl 25 mg 04/06/21 21:39 Hydroxyzine Hcl 25 Mg Tablet PO BEDTIME PRN Anxiety Magnesium Hydroxide 30 ml 04/06/21 21:39 Milk Of Magnesia 30 Ml Oral.Susp PO DAILY PRN Constipation Trazodone HCl 50 mg 04/06/21 21:39 Trazodone Hcl 50 Mg Tablet PO BEDTIME PRN Insomnia Allergies Allergies Allergy/AdvReac Type Severity Reaction Status Date / Time olanzapine [OLANZAPINE] Allergy Severe FACIAL Verified 04/06/21 10:20 SWELLING Assessment & Plan Assessment & Plan (1) Schizoaffective disorder: Status: Acute Code(s): F25.9 - Schizoaffective disorder, unspecified Assessment and Plan: Patient is a 35-year-old male with history of psychotic illness, recently charged from am 3 a few weeks ago who self presented to the emergency room saying that he ran to the hospital and if he had a gun he would shoot himself.? In ED patient was agitated and disorganized.? On floor patient received Haldol Ativan and Benadryl as a p.r.n. for agitation and was then calm.? Currently he does not want to talk but did agree to have his recent medications restarted. 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 He is not sure what medication trials he has had but says they are all on helpful -patient was recently admitted about a month ago with similar presentation barricaded himself in his apartment with blocked windows; isolating expressing concern the government is out to get him? to police department? confessing crimes, sectioned to the ED) -this admission, patient self presented to the emergency room saying he was suicidal with thoughts or plans to stab himself with a knife or shoot himself with a gun; patient has been very guarded during this admission though he has started to disclose what he is struggling with. Patient has had several explosive episodes on the unit, yelling/screaming loudly, with intensity, with clenched fists (of note, while this is frightening and makes staff concerned about safety, he has made no threat to others and denies any HI, intention or urges to do so).? He is very ambivalent about taking medications with a history of non adherence (currently says the don't work, are placebo ).? Patient has no insight at all into his psychiatric illness/psychotic symptoms.? Given the fact that patient was suicidal on admission, remains plagued by persecutory delusions with no insight and as a result tortures himself in the community, teletypewriter operator and team agree that patient is in imminent risk for harm to self and requires continued inpatient psychiatric treatment.? Plan was rob petition for civil commitment however patient decided to sign himself in -Medication hx: shared that only med that helped was Seroquel but he is not willing to retry since coming off it (for reasons he rather not discuss) was horrible event, causing hallucinations , not being able to tell if his mother was real, insominia for 4 days straight...He does not want any medication that is sedating since he feels need to be alert and focused. ? -willing to try clozapine Hospital course: very guarded on admission; intermittently willing to take Abilfy, prozac. Patient started to disclose more info.? However after listening to the psychotic symptoms and mood stabilizing properties of Abilify, patient said he agrees to a trial of Abilify.? Patient reports that he was feeling suicidal prior to admission but that all SI has resolved. -initially intermittent med adherent with Abilify; denies side effects; at one point said it seemed to help with racing thoughts and depression but has since he does not think this the case. -patient suffering from persecutory delusions and subsequent depression and anxiety -some modest improvement on Abilfiy 15mg; agrees to go to 30mg (pt wants to see christine if this is a beneficial medication and does not want to wait for a slower titration; teletypewriter operator agrees with this approach). -Abilify was increased to 30 mg and patient reports some modest improvement saying feels overall a little less stressed by his chronic worries a little more able to feel comfortable with staff; however he remains guarded. -patient has been on Abilify 30 mg for about 3 days now; at 1st it seemed there was some improvement however today he reports that he is just as tormented as ever and that medication is not effective; patient references his delusional thoughts that he is being persecuted and there is no way to avoid it. He says it does not matter what I do i'm always wrong... Patient however says he is willing to stay and try clozapine trial. 04/22/21 -patient put in 3 day notice but rescinded again. He agrees to clozapine trial and a relatively quick titration to see if it can be effective; he agrees simultaneously remain on Abilify since there is some evidence that it has been perhaps partially affective; patient would like discharge but agrees to continue staying on medications under the guidance of an outpatient psychiatrist how to assess Current med effect: *Pt remains guarded and frequently says he rather not discuss it... He agrees however to help teletypewriter operator know if Abilify is helping by informing on 2 parameters: 1. is he in less overall distress (emotional) 2. is he better able to discern if teletypewriter operator/staff is trustable (vs a part of conspiracy)/or be less confused about what to think PLAN: Pt currently on CV Q 15 checks INCREASED clozapine to 25 mg b.i.d.; will titrate by about 50 mg per day and get patient to 100 mg b.i.d. (of note, [employer] and [employer] advise dose titration of up to 50mg per day to about 300mg); sign-out given to covering providers. -ANC within normal limits -will continue with Abilify 30 mg daily. Patient agrees to remain on both Abilify and clozapine. Patient has failed numerous monotherapy antipsychotic medication trials and may require 2 antipsychotic medications for reduction of symptoms. Furthermore the tapering of clozapine takes some time and Abilify seems to have been perhaps partially helpful. Patient also denies any side effects from Abilify or from clozapine thus far. ?benztropine 1 mg daily to p.r.n. dose (was scheduled) Prozac to 20 mg daily (down from 60 mg since patient was not taking in the community) Will seek collateral though currently pt does not want parents involved (patient reports that Seroquel was most effective in the past, though he said it was for something totally different; clozapine has some similarities to Seroquel as they are both low potency; pt has had numerous other med trials with little to no effect; agrees to blood draws; teletypewriter operator reviewed risks/side effects of Clozapine) Med trials: Rispderal: possible some benefit? pt denies Abilify Haldol: dystonia? Olanzapine [place] Seroquel ECT recent 2020 hospitalizations: 09/2020 [facility] 01/2021 [facility] 03[place]20[place] Greater than 50% of the session was spent on counseling and/or coordination of care Reason for contiued inpatient stay Substantial Risk for: harm to self and rapid decompensation
[2021-04-22 16:45] VITALS: BP 100/67; PULSE 71; TEMP 35.8
[2021-04-23 06:00] VITALS: BP 107/67; PULSE 57; RESP 16; TEMP 35.8; O2SAT 95
[2021-04-23] MEDS: cloZAPine 25 MG TABLET PO ×2 (08:41→21:31)
[2021-04-23] MEDS: ARIPiprazole 30 MG TABLET PO (08:42)
[2021-04-23] MEDS: FLUoxetine HCl 20 MG CAPSULE PO (08:42)
[2021-04-23 16:55] VITALS: BP 92/57; PULSE 100; TEMP 35.8
--- NOTE | 2021-04-23 21:43 | P.PNPSI_ITS ---
Subjective Subjective Date of Service: 04/23/21 Reason For Visit: Psychosis Subjective Notes: Conditional Voluntary Medical Problems Affecting Mental Status: No Medication Compliance: No Review of Systems Acute medical concerns: No Medical Review of Systems: unchanged Mental Status Exam Mental Status Exam Patient Appearance: Disheveled Patient Orientation: Person Level of Consciousness: Awake Patient Behavior: Guarded and Suspicious Mood Description: Suspicious, Withdrawn and Sad Affect Description: Withdrawn and Sad Patient Cognition Impaired: Yes Ability to Follow Directions: Fair Delusions: Paranoid Ideation Thought Process: Distracted, Rumination and Confusion Thought Content: positive for Preoccupation Depressive Symptoms: Diff. Making Decisions, Loss of Int. in Activity, Hopelessness, Feelings of Guilt, Unhappiness, Increased Fatigue and Difficulty Concentrating Judgement: Poor Diagnostics Vital Signs (24Hr): Vital Signs - 24 hr 04/23/21 06:00 04/23/21 16:55 Temperature 96.4 F L 96.4 F L Pulse Rate 57 100 Respiratory Rate 16 Blood Pressure 107/67 92/57 L Pulse Oximetry 95 Body Mass Index 22.1 Labs Results: 04/22/21 07:55 Labs: Laboratory Results - last 48 hr 04/22/21 07:55 WBC 5.9 RBC 4.90 Hgb 14.8 Hct 43.6 MCV 89.0 MCH 30.2 MCHC 33.9 RDW 13.0 Plt Count 225 MPV 10.7 Immature Gran % (Auto) 0.3 Neut % (Auto) 58.1 Lymph % (Auto) 27.5 [place] % (Auto) 9.3 Eos % (Auto) 4.1 H Baso % (Auto) 0.7 Lymph # (Auto) 1.6 [place] # (Auto) 0.6 Eos # (Auto) 0.2 Baso # (Auto) 0.0 Abs Immat Gran (auto) 0.02 Absolute Neuts (auto) 3.4 Absolute Nucleated RBC 0.000 Nucleated RBC % (auto) 0.0 Medications Medications Current Medications Generic Name Dose Route Start Last Admin Trade Name Freq PRN Reason Stop Dose Admin Acetaminophen 650 mg 04/06/21 21:39 Acetaminophen 325 Mg Tablet PO Q6H PRN Headache/Pain Mild Scale (1-3) Al Hydroxide/Mg Hydroxide 30 ml 04/06/21 21:39 Magnesium Hydrox/Alum Hydrox 30 Ml Oral.Susp PO Q6H PRN Heartburn/Nausea Aripiprazole 30 mg 04/19/21 09:00 04/23/21 08:42 Aripiprazole 30 Mg Tablet PO 30 mg DAILY FIDEL Administration Benztropine Mesylate 1 mg 04/08/21 17:22 Benztropine Mesylate 1 Mg Tablet PO DAILY PRN EPS Clozapine 50 mg 04/24/21 09:00 Clozapine 25 Mg Tablet PO 04/24/21 23:59 BID FIDEL Clozapine 75 mg 04/25/21 09:00 Clozapine 25 Mg Tablet PO 04/25/21 23:59 BID FIDEL Clozapine 100 mg 04/26/21 09:00 Clozapine 100 Mg Tablet PO BID FIDEL Clozapine 25 mg 04/23/21 09:00 04/23/21 21:31 Clozapine 25 Mg Tablet PO 04/23/21 23:59 25 mg BID FIDEL Administration Diphenhydramine HCl 50 mg 04/07/21 10:07 Diphenhydramine Hcl 25 Mg Tablet PO Q4H PRN agitation Fluoxetine HCl 20 mg 04/09/21 09:00 04/23/21 08:42 Fluoxetine Hcl 20 Mg Capsule PO 20 mg DAILY FIDEL Administration Haloperidol 5 mg 04/07/21 10:07 Haloperidol 5 Mg Tablet PO Q4H PRN agitation Hydroxyzine HCl 25 mg 04/06/21 21:39 Hydroxyzine Hcl 25 Mg Tablet PO BEDTIME PRN Anxiety Magnesium Hydroxide 30 ml 04/06/21 21:39 Milk Of Magnesia 30 Ml Oral.Susp PO DAILY PRN Constipation Trazodone HCl 50 mg 04/06/21 21:39 Trazodone Hcl 50 Mg Tablet PO BEDTIME PRN Insomnia Allergies Allergies Allergy/AdvReac Type Severity Reaction Status Date / Time olanzapine [OLANZAPINE] Allergy Severe FACIAL Verified 04/06/21 10:20 SWELLING Assessment & Plan Assessment & Plan (1) Schizoaffective disorder: Status: Acute Code(s): F25.9 - Schizoaffective disorder, unspecified Assessment and Plan: Patient is a 35-year-old male with history of psychotic illness, recently charged from am 3 a few weeks ago who self presented to the emergency room saying that he ran to the hospital and if he had a gun he would shoot himself.? In ED patient was agitated and disorganized.? On floor patient received Haldol Ativan and Benadryl as a p.r.n. for agitation and was then calm.? Currently he does not want to talk but did agree to have his recent medications restarted. 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 He is not sure what medication trials he has had but says they are all on helpful -patient was recently admitted about a month ago with similar presentation barricaded himself in his apartment with blocked windows; isolating expressing concern the government is out to get him? to police department? confessing crimes, sectioned to the ED) -this admission, patient self presented to the emergency room saying he was suicidal with thoughts or plans to stab himself with a knife or shoot himself with a gun; patient has been very guarded during this admission though he has started to disclose what he is struggling with. Patient has had several explosive episodes on the unit, yelling/screaming loudly, with intensity, with clenched fists (of note, while this is frightening and makes staff concerned about safety, he has made no threat to others and denies any HI, intention or urges to do so).? He is very ambivalent about taking medications with a history of non adherence (currently says the don't work, are placebo ).? Patient has no insight at all into his psychiatric illness/psychotic symptoms.? Given the fact that patient was suicidal on admission, remains plagued by persecutory delusions with no insight and as a result tortures himself in the community, headline writer and team agree that patient is in imminent risk for harm to self and requires continued inpatient psychiatric treatment.? Plan was rob petition for civil commitment however patient decided to sign himself in -Medication hx: shared that only med that helped was Seroquel but he is not willing to retry since coming off it (for reasons he rather not discuss) was horrible event, causing hallucinations , not being able to tell if his mother was real, insominia for 4 days straight...He does not want any medication that is sedating since he feels need to be alert and focused. ? -willing to try clozapine Hospital course: very guarded on admission; intermittently willing to take Abilfy, prozac. Patient started to disclose more info.? However after listening to the psychotic symptoms and mood stabilizing properties of Abilify, patient said he agrees to a trial of Abilify.? Patient reports that he was feeling suicidal prior to admission but that all SI has resolved. -initially intermittent med adherent with Abilify; denies side effects; at one point said it seemed to help with racing thoughts and depression but has since he does not think this the case. -patient suffering from persecutory delusions and subsequent depression and anxiety -some modest improvement on Abilfiy 15mg; agrees to go to 30mg (pt wants to see christine if this is a beneficial medication and does not want to wait for a slower titration; headline writer agrees with this approach). -Abilify was increased to 30 mg and patient reports some modest improvement saying feels overall a little less stressed by his chronic worries a little more able to feel comfortable with staff; however he remains guarded. -patient has been on Abilify 30 mg for about 3 days now; at 1st it seemed there was some improvement however today he reports that he is just as tormented as ever and that medication is not effective; patient references his delusional thoughts that he is being persecuted and there is no way to avoid it. He says it does not matter what I do i'm always wrong... Patient however says he is willing to stay and try clozapine trial. 04/22/21 -patient put in 3 day notice but rescinded again. He agrees to clozapine trial and a relatively quick titration to see if it can be effective; he agrees simultaneously remain on Abilify since there is some evidence that it has been perhaps partially affective; patient would like discharge but agrees to continue staying on medications under the guidance of an outpatient psychiatrist how to assess Current med effect: *Pt remains guarded and frequently says he rather not discuss it... He agrees however to help headline writer know if Abilify is helping by informing on 2 parameters: 1. is he in less overall distress (emotional) 2. is he better able to discern if headline writer/staff is trustable (vs a part of conspiracy)/or be less confused about what to think PLAN: Pt currently on CV Q 15 checks INCREASED clozapine to 25 mg b.i.d.; will titrate by about 50 mg per day and get patient to 100 mg b.i.d. (of note, Stahls and [employer]rom[employer] advise dose titration of up to 50mg per day to about 300mg); sign-out given to covering providers. -ANC within normal limits -will continue with Abilify 30 mg daily. Patient agrees to remain on both Abilify and clozapine. Patient has failed numerous monotherapy antipsychotic medication trials and may require 2 antipsychotic medications for reduction of symptoms. Furthermore the tapering of clozapine takes some time and Abilify seems to have been perhaps partially helpful. Patient also denies any side effects from Abilify or from clozapine thus far. ?benztropine 1 mg daily to p.r.n. dose (was scheduled) Prozac to 20 mg daily (down from 60 mg since patient was not taking in the community) Will seek collateral though currently pt does not want parents involved (patient reports that Seroquel was most effective in the past, though he said it was for something totally different; clozapine has some similarities to Seroquel as they are both low potency; pt has had numerous other med trials with little to no effect; agrees to blood draws; headline writer reviewed risks/side effects of Clozapine) Med trials: Rispderal: possible some benefit? pt denies Abilify Haldol: dystonia? Olanzapine [place] Seroquel ECT recent 2020 hospitalizations: 09/2020 [facility] 01/2021 [facility] 03/2021 [facility] Greater than 50% of the session was spent on counseling and/or coordination of care Reason for contiued inpatient stay Substantial Risk for: harm to self, inability to function, rapid decompensation and med/psych decompensation
[2021-04-24 06:00] VITALS: BP 106/70; PULSE 59; TEMP 35.9; O2SAT 99
[2021-04-24] MEDS: cloZAPine 25 MG TABLET 50 MG PO ×2 (07:56→22:11)
[2021-04-24] MEDS: ARIPiprazole 30 MG TABLET PO (07:56)
[2021-04-24] MEDS: FLUoxetine HCl 20 MG CAPSULE PO (07:56)
--- NOTE | 2021-04-24 12:20 | P.PNPSI_ITS ---
Subjective Subjective Date of Service: 04/24/21 Reason For Visit: Psychosis Subjective Notes: Conditional Voluntary Interim History: no changes; declines to discuss concerns with this residential mortgage underwriter Medication Compliance: Yes Side effects from medications: No Attending Groups: Intermittent Review of Systems Acute medical concerns: No Review of Systems Review of Systems Yes all other systems are reviewed and are negative Mental Status Exam Mental Status Exam Patient Appearance: Disheveled Patient Orientation: Person Level of Consciousness: Awake Patient Behavior: Guarded and Suspicious Mood Description: Suspicious, Withdrawn and Sad Affect Description: Withdrawn and Sad Patient Cognition Impaired: Yes Ability to Follow Directions: Fair Delusions: Paranoid Ideation Thought Process: Distracted, Rumination and Confusion Thought Content: positive for Preoccupation Depressive Symptoms: Diff. Making Decisions, Loss of Int. in Activity, Hopeles sness, Feelings of Guilt, Unhappiness, Increased Fatigue and Difficulty Concentrating Judgement: Poor Diagnostics Vital Signs (24Hr): Vital Signs - 24 hr 04/23/21 16:55 04/24/21 06:00 Temperature 96.4 F L 96.7 F L Pulse Rate 100 59 Blood Pressure 92/57 L 106/70 Pulse Oximetry 99 Body Mass Index 22.1 Labs Results: 04/22/21 07:55 Medications Medications Current Medications Generic Name Dose Route Start Last Admin Trade Name Freq PRN Reason Stop Dose Admin Acetaminophen 650 mg 04/06/21 21:39 Acetaminophen 325 Mg Tablet PO Q6H PRN Headache/Pain Mild Scale (1-3) Al Hydroxide/Mg Hydroxide 30 ml 04/06/21 21:39 Magnesium Hydrox/Alum Hydrox 30 Ml Oral.Susp PO Q6H PRN Heartburn/Nausea Aripiprazole 30 mg 04/19/21 09:00 04/24/21 07:56 Aripiprazole 30 Mg Tablet PO 30 mg DAILY FIDEL Administration Benztropine Mesylate 1 mg 04/08/21 17:22 Benztropine Mesylate 1 Mg Tablet PO DAILY PRN EPS Clozapine 50 mg 04/24/21 09:00 04/24/21 07:56 Clozapine 25 Mg Tablet PO 04/24/21 23:59 50 mg BID FIDEL Administration Clozapine 75 mg 04/25/21 09:00 Clozapine 25 Mg Tablet PO 04/25/21 23:59 BID FIDEL Clozapine 100 mg 04/26/21 09:00 Clozapine 100 Mg Tablet PO BID FIDEL Diphenhydramine HCl 50 mg 04/07/21 10:07 Diphenhydramine Hcl 25 Mg Tablet PO Q4H PRN agitation Fluoxetine HCl 20 mg 04/09/21 09:00 04/24/21 07:56 Fluoxetine Hcl 20 Mg Capsule PO 20 mg DAILY FIDEL Administration Haloperidol 5 mg 04/07/21 10:07 Haloperidol 5 Mg Tablet PO Q4H PRN agitation Hydroxyzine HCl 25 mg 04/06/21 21:39 Hydroxyzine Hcl 25 Mg Tablet PO BEDTIME PRN Anxiety Magnesium Hydroxide 30 ml 04/06/21 21:39 Milk Of Magnesia 30 Ml Oral.Susp PO DAILY PRN Constipation Trazodone HCl 50 mg 04/06/21 21:39 Trazodone Hcl 50 Mg Tablet PO BEDTIME PRN Insomnia Allergies Allergies Allergy/AdvReac Type Severity Reaction Status Date / Time olanzapine [OLANZAPINE] Allergy Severe FACIAL Verified 04/06/21 10:20 SWELLING Assessment & Plan Assessment & Plan (1) Schizoaffective disorder: Status: Acute Code(s): F25.9 - Schizoaffective disorder, unspecified Assessment and Plan: Patient is a 35-year-old male with history of psychotic illness, recently charged from am 3 a few weeks ago who self presented to the emergency room saying that he ran to the hospital and if he had a gun he would shoot himself.? In ED patient was agitated and disorganized.? On floor patient received Haldol Ativan and Benadryl as a p.r.n. for agitation and was then calm.? Currently he does not want to talk but did agree to have his recent medications restarted. 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 He is not sure what medication trials he has had but says they are all on helpful -patient was recently admitted about a month ago with similar presentation barricaded himself in his apartment with blocked windows; isolating expressing concern the government is out to get him? to police department? confessing crimes, sectioned to the ED) -this admission, patient self presented to the emergency room saying he was suic idal with thoughts or plans to stab himself with a knife or shoot himself with a gun; patient has been very guarded during this admission though he has started to disclose what he is struggling with. Patient has had several explosive episodes on the unit, yelling/screaming loudly, with intensity, with clenched fists (of note, while this is frightening and makes staff concerned about safety, he has made no threat to others and denies any HI, intention or urges to do so).? He is very ambivalent about taking medications with a history of non adherence (currently says the don't work, are placebo ).? Patient has no insight at all into his psychiatric illness/psychotic symptoms.? Given the fact that patient was suicidal on admission, remains plagued by persecutory delusions with no insight and as a result tortures himself in the community, residential mortgage underwriter and team agree that patient is in imminent risk for harm to self and requires continued inpatient psychiatric treatment.? Plan was rob petition for civil commitment however patient decided to sign himself in -Medication hx: shared that only med that helped was Seroquel but he is not willing to retry since coming off it (for reasons he rather not discuss) was horrible event, causing hallucinations , not being able to tell if his mother was real, insominia for 4 days straight...He does not want any medication that is sedating since he feels need to be alert and focused. ? -willing to try clozapine Hospital course: very guarded on admission; intermittently willing to take Abilfy, prozac. Patient started to disclose more info.? However after listening to the psychotic symptoms and mood stabilizing properties of Abilify, patient said he agrees to a trial of Abilify.? Patient reports that he was feeling suicidal prior to admission but that all SI has resolved. -initially intermittent med adherent with Abilify; denies side effects; at one point said it seemed to help with racing thoughts and depression but has since he does not think this the case. -patient suffering from persecutory delusions and subsequent depression and anxiety -some modest improvement on Abilfiy 15mg; agrees to go to 30mg (pt wants to see christine if this is a beneficial medication and does not want to wait for a slower titration; residential mortgage underwriter agrees with this approach). -Abilify was increased to 30 mg and patient reports some modest improvement saying feels overall a little less stressed by his chronic worries a little more able to feel comfortable with staff; however he remains guarded. -patient has been on Abilify 30 mg for about 3 days now; at 1st it seemed there was some improvement however today he reports that he is just as tormented as ever and that medication is not effective; patient references his delusional thoughts that he is being persecuted and there is no way to avoid it. He says it does not matter what I do i'm always wrong... Patient however says he is willing to stay and try clozapine trial. 04/22/21 -patient put in 3 day notice but rescinded again. He agrees to clozapine trial and a relatively quick titration to see if it can be effective; he agrees simultaneously remain on Abilify since there is some evidence that it has been perhaps partially affective; patient would like discharge but agrees to continue staying on medications under the guidance of an outpatient psychiatrist how to assess Current med effect: *Pt remains guarded and frequently says he rather not discuss it... He agrees however to help residential mortgage underwriter know if Abilify is helping by informing on 2 parameters: 1. is he in less overall distress (emotional) 2. is he better able to discern if residential mortgage underwriter/staff is trustable (vs a part of conspiracy)/or be less confused about what to think PLAN: Continue plan as below Pt currently on CV Q 15 checks INCREASED clozapine to 25 mg b.i.d.; will titrate by about 50 mg per day and get patient to 100 mg b.i.d. (of note, [employer]ahls and [employer] advise dose titration of up to 50mg per day to about 300mg); sign-out given to covering providers. -ANC within normal limits -will continue with Abilify 30 mg daily. Patient agrees to remain on both Abilify and clozapine. Patient has failed numerous monotherapy antipsychotic medication trials and may require 2 antipsychotic medications for reduction of symptoms. Furthermore the tapering of clozapine takes some time and Abilify seems to have been perhaps partially helpful. Patient also denies any side effects from Abilify or from clozapine thus far. ?benztropine 1 mg daily to p.r.n. dose (was scheduled) Prozac to 20 mg daily (down from 60 mg since patient was not taking in the community) Will seek collateral though currently pt does not want parents involved (patient reports that Seroquel was most effective in the past, though he said it was for something totally different; clozapine has some similarities to Seroquel as they are both low potency; pt has had numerous other med trials with little to no effect; agrees to blood draws; residential mortgage underwriter reviewed risks/side effects of Clozapine) Med trials: Rispderal: possible some benefit? pt denies Abilify Haldol: dystonia? Olanzapine [place] Seroquel ECT recent 2020 hospitalizations: 09/2020 [facility] 01/2021 [facility] 03/2021 [facility] current [facility] Greater than 50% of the session was spent on counseling and/or coordination of care Reason for contiued inpatient stay Substantial Risk for: harm to self, inability to function, rapid decompensation and med/psych decompensation
--- NOTE | 2021-04-24 12:23 | P.PNPSI_ITS ---
Subjective Subjective Date of Service: 04/24/21 Reason For Visit: Psychosis Subjective Notes: Conditional Voluntary Interim History: pt appears suspicious, guarded, listened politely about my role but declined to discuss symptoms or any needs Medication Compliance: Yes Side effects from medications: No Attending Groups: No Review of Systems Acute medical concerns: No Medical Review of Systems: unchanged Review of Systems Review of Systems Yes all other systems are reviewed and are negative and Other (Limited due to patient's psychiatric condition) Constitutional: Denies fever(s) and Denies headache(s) Denies headache(s) Cardiovascular: Denies chest pain Gastrointestinal: Denies abdominal pain Denies headache(s) and Denies Sensory deficit (Neuro) Psychiatric: Reports homicidal ideation Mental Status Exam Mental Status Exam Patient Appearance: Disheveled Patient Orientation: Person Level of Consciousness: Awake Patient Behavior: Guarded and Suspicious Mood Description: Suspicious, Withdrawn and Sad Affect Description: Withdrawn and Sad Patient Cognition Impaired: Yes Ability to Follow Directions: Fair Judgement: Fair Diagnostics Vital Signs (24Hr): Vital Signs - 24 hr 04/23/21 16:55 04/24/21 06:00 Temperature 96.4 F L 96.7 F L Pulse Rate 100 59 Blood Pressure 92/57 L 106/70 Pulse Oximetry 99 Body Mass Index 22.1 Labs Results: 04/22/21 07:55 Medications Medications Current Medications Generic Name Dose Route Start Last Admin Trade Name Freq PRN Reason Stop Dose Admin Acetaminophen 650 mg 04/06/21 21:39 Acetaminophen 325 Mg Tablet PO Q6H PRN Headache/Pain Mild Scale (1-3) Al Hydroxide/Mg Hydroxide 30 ml 04/06/21 21:39 Magnesium Hydrox/Alum Hydrox 30 Ml Oral.Susp PO Q6H PRN Heartburn/Nausea Aripiprazole 30 mg 04/19/21 09:00 04/24/21 07:56 Aripiprazole 30 Mg Tablet PO 30 mg DAILY FIDEL Administration Benztropine Mesylate 1 mg 04/08/21 17:22 Benztropine Mesylate 1 Mg Tablet PO DAILY PRN EPS Clozapine 50 mg 04/24/21 09:00 04/24/21 07:56 Clozapine 25 Mg Tablet PO 04/24/21 23:59 50 mg BID FIDEL Administration Clozapine 75 mg 04/25/21 09:00 Clozapine 25 Mg Tablet PO 04/25/21 23:59 BID FIDEL Clozapine 100 mg 04/26/21 09:00 Clozapine 100 Mg Tablet PO BID FIDEL Diphenhydramine HCl 50 mg 04/07/21 10:07 Diphenhydramine Hcl 25 Mg Tablet PO Q4H PRN agitation Fluoxetine HCl 20 mg 04/09/21 09:00 04/24/21 07:56 Fluoxetine Hcl 20 Mg Capsule PO 20 mg DAILY FIDEL Administration Haloperidol 5 mg 04/07/21 10:07 Haloperidol 5 Mg Tablet PO Q4H PRN agitation Hydroxyzine HCl 25 mg 04/06/21 21:39 Hydroxyzine Hcl 25 Mg Tablet PO BEDTIME PRN Anxiety Magnesium Hydroxide 30 ml 04/06/21 21:39 Milk Of Magnesia 30 Ml Oral.Susp PO DAILY PRN Constipation Trazodone HCl 50 mg 04/06/21 21:39 Trazodone Hcl 50 Mg Tablet PO BEDTIME PRN Insomnia Allergies Allergies Allergy/AdvReac Type Severity Reaction Status Date / Time olanzapine [OLANZAPINE] Allergy Severe FACIAL Verified 04/06/21 10:20 SWELLING Assessment & Plan Assessment & Plan (1) Schizoaffective disorder: Status: Acute Code(s): F25.9 - Schizoaffective disorder, unspecified Assessment and Plan: Patient is a 35-year-old male with history of psychotic illness, recently charged from am 3 a few weeks ago who self presented to the emergency room saying that he ran to the hospital and if he had a gun he would shoot himself.? In ED patient was agitated and disorganized.? On floor patient received Haldol Ativan and Benadryl as a p.r.n. for agitation and was then calm.? Currently he does not want to talk but did agree to have his recent medications restarted. 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 He is not sure what medication trials he has had but says they are all on helpful -patient was recently admitted about a month ago with similar presentation barricaded himself in his apartment with blocked windows; isolating expressing concern the government is out to get him? to police department? confessing crimes, sectioned to the ED) -this admission, patient self presented to the emergency room saying he was suicidal with thoughts or plans to stab himself with a knife or shoot himself with a gun; patient has been very guarded during this admission though he has started to disclose what he is struggling with. Patient has had several explosive episodes on the unit, yelling/screaming loudly, with intensity, with clenched fists (of note, while this is frightening and makes staff concerned about safety, he has made no threat to others and denies any HI, intention or urges to do so).? He is very ambivalent about taking medications with a history of non adherence (currently says the don't work, are placebo ).? Patient has no insight at all into his psychiatric illness/psychotic symptoms.? Given the fact that patient was suicidal on admission, remains plagued by persecutory delusions with no insight and as a result tortures himself in the community, flex o writer operator and team agree that patient is in imminent risk for harm to self and requires continued inpatient psychiatric treatment.? Plan was rob petition for civil commitment however patient decided to sign himself in -Medication hx: shared that only med that helped was Seroquel but he is not willing to retry since coming off it (for reasons he rather not discuss) was horrible event, causing hallucinations , not being able to tell if his mother was real, insominia for 4 days straight...He does not want any medication that is sedating since he feels need to be alert and focused. ? -willing to try clozapine Hospital course: very guarded on admission; intermittently willing to take Abilfy, prozac. Patient started to disclose more info.? However after listening to the psychotic symptoms and mood stabilizing properties of Abilify, patient said he agrees to a trial of Abilify.? Patient reports that he was feeling suicidal prior to admission but that all SI has resolved. -initially intermittent med adherent with Abilify; denies side effects; at one point said it seemed to help with racing thoughts and depression but has since he does not think this the case. -patient suffering from persecutory delusions and subsequent depression and anxiety -some modest improvement on Abilfiy 15mg; agrees to go to 30mg (pt wants to see christine if this is a beneficial medication and does not want to wait for a slower titration; flex o writer operator agrees with this approach). -Abilify was increased to 30 mg and patient reports some modest improvement saying feels overall a little less stressed by his chronic worries a little more able to feel comfortable with staff; however he remains guarded. -patient has been on Abilify 30 mg for about 3 days now; at 1st it seemed there was some improvement however today he reports that he is just as tormented as ever and that medication is not effective; patient references his delusional thoughts that he is being persecuted and there is no way to avoid it. He says it does not matter what I do i'm always wrong... Patient however says he is willing to stay and try clozapine trial. 04/22/21 -patient put in 3 day notice but rescinded again. He agrees to clozapine trial and a relatively quick titration to see if it can be effective; he agrees simultaneously remain on Abilify since there is some evidence that it has been perhaps partially affective; patient would like discharge but agrees to continue staying on medications under the guidance of an outpatient psychiatrist how to assess Current med effect: *Pt remains guarded and frequently says he rather not discuss it... He agrees however to help flex o writer operator know if Abilify is helping by informing on 2 parameters: 1. is he in less overall distress (emotional) 2. is he better able to discern if flex o writer operator/staff is trustable (vs a part of conspiracy)/or be less confused about what to think PLAN: Continue plan as below Pt currently on CV Q 15 checks INCREASED clozapine to 25 mg b.i.d.; will titrate by about 50 mg per day and get patient to 100 mg b.i.d. (of note, Stahls and [employer]romed[employer] advise dose titration of up to 50mg per day to about 300mg); sign-out given to covering providers. -ANC within normal limits -will continue with Abilify 30 mg daily. Patient agrees to remain on both Abilify and clozapine. Patient has failed numerous monotherapy antipsychotic medication trials and may require 2 antipsychotic medications for reduction of symptoms. Furthermore the tapering of clozapine takes some time and Abilify seems to have been perhaps partially helpful. Patient also denies any side effects from Abilify or from clozapine thus far. ?benztropine 1 mg daily to p.r.n. dose (was scheduled) Prozac to 20 mg daily (down from 60 mg since patient was not taking in the community) Will seek collateral though currently pt does not want parents involved (patient reports that Seroquel was most effective in the past, though he said it was for something totally different; clozapine has some similarities to Seroquel as they are both low potency; pt has had numerous other med trials with little to no effect; agrees to blood draws; flex o writer operator reviewed risks/side effects of Clozapine) Med trials: Rispderal: possible some benefit? pt denies Abilify Haldol: dystonia? Olanzapine [place] Seroquel ECT recent 2020 hospitalizations: 09/2020 [facility] 01/2021 [facility] 03[facility]2021 [place] Greater than 50% of the session was spent on counseling and/or coordination of care Reason for contiued inpatient stay Substantial Risk for: harm to self, inability to function, rapid decompensation and med/psych decompensation
[2021-04-24 18:00] VITALS: BP 108/64; PULSE 87
[2021-04-25 06:00] VITALS: BP 88/53; PULSE 108; RESP 16; TEMP 35.9; O2SAT 98
[2021-04-25] MEDS: ARIPiprazole 30 MG TABLET PO (08:09)
[2021-04-25] MEDS: FLUoxetine HCl 20 MG CAPSULE PO (08:09)
[2021-04-25] MEDS: cloZAPine 25 MG TABLET 75 MG PO ×2 (08:09→21:01)
--- NOTE | 2021-04-25 14:42 | HO.PSYCHPN ---
Subjective Subjective Date of Service: 04/25/21 Reason For Visit: Psychosis Interim History: pt reports he does not want to take medications - he has been feeling dizzy and nauseated afterward, and he has another reason which he explicitly states he will not tell me. he may be open to taking other medications - asked about zyprexa, as it is pharmacologically the neuroleptic most similar to clozaril, but he stated he has an allergy to it (he reports it made his face swell up). he ends further discussion of the topic, stating he plans to decline the medication for now and discuss next steps with Dr. Black once he returns. per staff, spending his time laregely either pacing or in bed. not engaged in Tx or socially with peers. Mental Status Exam Mental Status Exam Patient Appearance: Disheveled Patient Orientation: Person Level of Consciousness: Awake Patient Behavior: Guarded and Suspicious Mood Description: Suspicious, Withdrawn and Sad Affect Description: Withdrawn and Sad Patient Cognition Impaired: Yes Ability to Follow Directions: Fair Diagnostics Vital Signs (24Hr): Vital Signs - 24 hr 04/24/21 18:00 Pulse Rate 87 Blood Pressure 108/64 Body Mass Index 22.1 Labs Results: 04/22/21 07:55 Medications Medications Current Medications Generic Name Dose Route Start Last Admin Trade Name Freq PRN Reason Stop Dose Admin Acetaminophen 650 mg 04/06/21 21:39 Acetaminophen 325 Mg Tablet PO Q6H PRN Headache/Pain Mild Scale (1-3) Al Hydroxide/Mg Hydroxide 30 ml 04/06/21 21:39 Magnesium Hydrox/Alum Hydrox 30 Ml Oral.Susp PO Q6H PRN Heartburn/Nausea Aripiprazole 30 mg 04/19/21 09:00 04/25/21 08:09 Aripiprazole 30 Mg Tablet PO 30 mg DAILY FIDEL Administration Benztropine Mesylate 1 mg 04/08/21 17:22 Benztropine Mesylate 1 Mg Tablet PO DAILY PRN EPS Clozapine 75 mg 04/25/21 09:00 04/25/21 08:09 Clozapine 25 Mg Tablet PO 04/25/21 23:59 75 mg BID FIDEL Administration Clozapine 100 mg 04/26/21 09:00 Clozapine 100 Mg Tablet PO BID FIDEL Diphenhydramine HCl 50 mg 04/07/21 10:07 Diphenhydramine Hcl 25 Mg Tablet PO Q4H PRN agitation Fluoxetine HCl 20 mg 04/09/21 09:00 04/25/21 08:09 Fluoxetine Hcl 20 Mg Capsule PO 20 mg DAILY FIDEL Administration Haloperidol 5 mg 04/07/21 10:07 Haloperidol 5 Mg Tablet PO Q4H PRN agitation Hydroxyzine HCl 25 mg 04/06/21 21:39 Hydroxyzine Hcl 25 Mg Tablet PO BEDTIME PRN Anxiety Magnesium Hydroxide 30 ml 04/06/21 21:39 Milk Of Magnesia 30 Ml Oral.Susp PO DAILY PRN Constipation Trazodone HCl 50 mg 04/06/21 21:39 Trazodone Hcl 50 Mg Tablet PO BEDTIME PRN Insomnia Allergies Allergies Allergy/AdvReac Type Severity Reaction Status Date / Time olanzapine [OLANZAPINE] Allergy Severe FACIAL Verified 04/06/21 10:20 SWELLING Assessment & Plan Assessment & Plan (1) Schizoaffective disorder: Status: Acute Code(s): F25.9 - Schizoaffective disorder, unspecified Assessment and Plan: Patient is a 35-year-old male with history of psychotic illness, recently charged from am 3 a few weeks ago who self presented to the emergency room saying that he ran to the hospital and if he had a gun he would shoot himself.? In ED patient was agitated and disorganized.? On floor patient received Haldol Ativan and Benadryl as a p.r.n. for agitation and was then calm.? Currently he does not want to talk but did agree to have his recent medications restarted. 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 He is not sure what medication trials he has had but says they are all on helpful -patient was recently admitted about a month ago with similar presentation barricaded himself in his apartment with blocked windows; isolating expressing concern the government is out to get him? to police department? confessing crimes, sectioned to the ED) -this admission, patient self presented to the emergency room saying he was suicidal with thoughts or plans to stab himself with a knife or shoot himself with a gun; patient has been very guarded during this admission though he has started to disclose what he is struggling with. Patient has had several explosive episodes on the unit, yelling/screaming loudly, with intensity, with clenched fists (of note, while this is frightening and makes staff concerned about safety, he has made no threat to others and denies any HI, intention or urges to do so).? He is very ambivalent about taking medications with a history of non adherence (currently says the don't work, are placebo ).? Patient has no insight at all into his psychiatric illness/psychotic symptoms.? Given the fact that patient was suicidal on admission, remains plagued by persecutory delusions with no insight and as a result tortures himself in the community, sign writer hand and team agree that patient is in imminent risk for harm to self and requires continued inpatient psychiatric treatment.? Plan was rob petition for civil commitment however patient decided to sign himself in -Medication hx: shared that only med that helped was Seroquel but he is not willing to retry since coming off it (for reasons he rather not discuss) was horrible event, causing hallucinations , not being able to tell if his mother was real, insominia for 4 days straight...He does not want any medication that is sedating since he feels need to be alert and focused. ? -willing to try clozapine Hospital course: very guarded on admission; intermittently willing to take Abilfy, prozac. Patient started to disclose more info.? However after listening to the psychotic symptoms and mood stabilizing properties of Abilify, patient said he agrees to a trial of Abilify.? Patient reports that he was feeling suicidal prior to admission but that all SI has resolved. -initially intermittent med adherent with Abilify; denies side effects; at one point said it seemed to help with racing thoughts and depression but has since he does not think this the case. -patient suffering from persecutory delusions and subsequent depression and anxiety -some modest improvement on Abilfiy 15mg; agrees to go to 30mg (pt wants to see christine if this is a beneficial medication and does not want to wait for a slower titration; sign writer hand agrees with this approach). -Abilify was increased to 30 mg and patient reports some modest improvement saying feels overall a little less stressed by his chronic worries a little more able to feel comfortable with staff; however he remains guarded. -patient has been on Abilify 30 mg for about 3 days now; at 1st it seemed there was some improvement however today he reports that he is just as tormented as ever and that medication is not effective; patient references his delusional thoughts that he is being persecuted and there is no way to avoid it. He says it does not matter what I do i'm always wrong... Patient however says he is willing to stay and try clozapine trial. 04/22/21 -patient put in 3 day notice but rescinded again. He agrees to clozapine trial and a relatively quick titration to see if it can be effective; he agrees simultaneously remain on Abilify since there is some evidence that it has been perhaps partially affective; patient would like discharge but agrees to continue staying on medications under the guidance of an outpatient psychiatrist how to assess Current med effect: *Pt remains guarded and frequently says he rather not discuss it... He agrees however to help sign writer hand know if Abilify is helping by informing on 2 parameters: 1. is he in less overall distress (emotional) 2. is he better able to discern if sign writer hand/staff is trustable (vs a part of conspiracy)/or be less confused about what to think PLAN: Continue plan as below Pt currently on CV Q 15 checks INCREASED clozapine to 25 mg b.i.d.; will titrate by about 50 mg per day and get patient to 100 mg b.i.d. (of note, [employer]ahls and [employer] advise dose titration of up to 50mg per day to about 300mg); sign-out given to covering providers. -ANC within normal limits -will continue with Abilify 30 mg daily. Patient agrees to remain on both Abilify and clozapine. Patient has failed numerous monotherapy antipsychotic medication trials and may require 2 antipsychotic medications for reduction of symptoms. Furthermore the tapering of clozapine takes some time and Abilify seems to have been perhaps partially helpful. Patient also denies any side effects from Abilify or from clozapine thus far. ?benztropine 1 mg daily to p.r.n. dose (was scheduled) Prozac to 20 mg daily (down from 60 mg since patient was not taking in the community) Will seek collateral though currently pt does not want parents involved (patient reports that Seroquel was most effective in the past, though he said it was for something totally different; clozapine has some similarities to Seroquel as they are both low potency; pt has had numerous other med trials with little to no effect; agrees to blood draws; sign writer hand reviewed risks/side effects of Clozapine) Med trials: Rispderal: possible some benefit? pt denies Abilify Haldol: dystonia? Olanzapine [place] Seroquel ECT recent 2020 hospitalizations: 09/2020 [facility] 01/2021 [facility] 03/2021 [place] Greater than 50% of the session was spent on counseling and/or coordination of care Reason for contiued inpatient stay Substantial Risk for: harm to self, inability to function and rapid decompensation
[2021-04-25 18:00] VITALS: BP 89/58; PULSE 82; RESP 16; TEMP 35.8; O2SAT 98
[2021-04-26] MEDS: Acetaminophen 325 MG TABLET 650 MG PO (03:14)
[2021-04-26 06:00] VITALS: BP 115/67; PULSE 99; RESP 16; TEMP 35.5; O2SAT 96
[2021-04-26] MEDS: ARIPiprazole 30 MG TABLET PO (08:58)
[2021-04-26] MEDS: FLUoxetine HCl 20 MG CAPSULE PO (08:58)
[2021-04-26] MEDS: cloZAPine 100 MG TABLET PO ×2 (08:58→20:01)
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
[2021-04-26 18:00] VITALS: BP 127/68; PULSE 83; TEMP 36.4
[2021-04-27 06:00] VITALS: BP 97/55; PULSE 111; RESP 18; TEMP 36.7; O2SAT 97
[2021-04-27] MEDS: ARIPiprazole 30 MG TABLET PO (10:11)
[2021-04-27] MEDS: Benztropine Mesylate 1 MG TABLET PO (10:11)
[2021-04-27 18:00] VITALS: BP 113/71; PULSE 91; RESP 16; TEMP 36.4; O2SAT 98
[2021-04-27] MEDS: cloZAPine 100 MG TABLET 200 MG PO (21:03)
--- NOTE | 2021-04-28 02:17 | PC.NURSE ---
0135: PT FOUND SITTING ON FLOOR NEAR HIS BED. NO FALL OCCURRED. PT IS DELUSIONAL AND CONFUSED. ASSISTED TO BED ALTHOUGH PT CAN STAND AND WALK. BP 144/91 HR 122. INTERNAL PREOCCUPATION EVIDENT PT IS TALKING TO SELF EVEN IN HIS SLEEP.5 MINUTE SAFETY CHECKS INITIATED FOR PT SAFETY.
[2021-04-28 06:00] VITALS: BP 137/90; PULSE 109; RESP 16; TEMP 36.6; O2SAT 95
[2021-04-28 08:40] VITALS: BP 120/66; PULSE 114; TEMP 36.3
[2021-04-28 10:07] LABS: Basophils Percent Auto 0.2 % (0-2); Eosinophils Absolute Auto 0.1 X10*3/uL (0.0-0.4); Hematocrit 46.6 % (42-52); Hemoglobin 15.5 g/dl (14.0-18.0); Imm Gran Abs Auto 0.02 X10*3/uL (0.00-0.03); Imm Gran Pct Auto 0.2 % (0.0-0.4); Lymphocytes Absolute Auto 0.9 X10*3/uL (1.2-4.9); MANUAL DIFF FLAG NO; Mean Corpuscular HGB Conc 33.3 g/dl (31.0-36.0); Mean Corpuscular Hemoglobin 29.8 pg (27.0-33.0); Mean Corpuscular Volume 89.6 fL (80-98); Mean Platelet Volume 10.2 fL (9.4-12.4); Monocytes Absolute Auto 0.8 X10*3/uL (0.1-1.2); Monocytes Percent Auto 8.6 % (2-11); Neutrophils Absolute Auto 7.6 X10*3/uL (2.0-8.3); Platelet Count 219 X10*3/uL (160-400); White Blood Count 9.4 X10*3/uL (4.8-10.8)
[2021-04-28 10:30] LABS: Alanine Aminotransferase 11 U/L (0-40); Albumin Level 4.4 g/dL (3.5-5.0); Alkaline Phosphatase 71 U/L (39-117); Aspartate Amino Transferase 13 U/L (5-37); Bilirubin Direct 0.8 mg/dL (0.0-0.5); Bilirubin Total 2.3 mg/dL (0.0-1.0)
[2021-04-28 10:31] LABS: Anion Gap 17 (12-20); Blood Urea Nitrogen 12 mg/dL (9-16); Carbon Dioxide 25 mmol/L (22-29); Chloride 107 mmol/L (96-108); Creatinine Clr Calc Pharmacy 118.1; Estimated Glomerular Filt Rate > 60; Potassium 3.8 mmol/L (3.3-5.1); Sodium 145 mmol/L (135-145)
[2021-04-28 10:42] LABS: Lactate Dehydrogenase 144 U/L (118-273)
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
--- NOTE | 2021-04-28 15:29 | HO.PSYCHPN ---
Subjective Subjective Date of Service: 04/28/21 Reason For Visit: Psychosis Interim History: Nursing informed fiction and nonfiction writer prose that patient was mumbling, seem to be sedated, was a little shaky and diaphoretic though afebrile; also that he seemed to be more rigid in movements. Water Filter Cleaner examined patient who was alert and oriented to self and situation; however he did stop in mid sentence and said he needs to stop talking for now. Focused exam revealed very mild left arm at biceps cogwheeling; no wrist rigidity/cogwheeling right arm without any rigidity or cogwheeling appreciated -patient does report increased salivation which he says started 1 or 2 days ago Water Filter Cleaner explained to patient that even though clozapine is very low risk for NMS or dystonia, it is important to rule this out and asked patient to be compliant with getting lab work done, to which he agreed. Diagnostics Vital Signs (24Hr): Vital Signs - 24 hr 04/27/21 18:00 04/28/21 06:00 04/28/21 08:40 Temperature 97.6 F 97.8 F 97.4 F Pulse Rate 91 109 H 114 H Respiratory Rate 16 16 Blood Pressure 113/71 137/90 H 120/66 Pulse Oximetry 98 95 Body Mass Index 22.1 Labs Results: 04/28/21 10:00 04/28/21 10:00 Labs: Laboratory Results - last 48 hr 04/28/21 04/28/21 04/28/21 10:00 10:00 10:00 WBC 9.4 RBC 5.20 Hgb 15.5 Hct 46.6 MCV 89.6 MCH 29.8 MCHC 33.3 RDW 13.0 Plt Count 219 MPV 10.2 Immature Gran % (Auto) 0.2 Neut % (Auto) 80.0 H Lymph % (Auto) 10.0 L [place] % (Auto) 8.6 Eos % (Auto) 1.0 Baso % (Auto) 0.2 Lymph # (Auto) 0.9 L [place] # (Auto) 0.8 Eos # (Auto) 0.1 Baso # (Auto) 0.0 Abs Immat Gran (auto) 0.02 Absolute Neuts (auto) 7.6 Absolute Nucleated RBC 0.000 Nucleated RBC % (auto) 0.0 Sodium 145 Potassium 3.8 Chloride 107 Carbon Dioxide 25 Anion Gap 17 BUN 12 Creatinine 0.88 Estim Creat Clear Calc 118.1 Estimated GFR > 60 Total Bilirubin 2.3 H Direct Bilirubin 0.8 H AST 13 ALT 11 Alkaline Phosphatase 71 Lactate Dehydrogenase 144 Total Creatine Kinase 93 Total Protein 7.0 Albumin 4.4 Medications Medications Current Medications Generic Name Dose Route Start Last Admin Trade Name Freq PRN Reason Stop Dose Admin Acetaminophen 650 mg 04/06/21 21:39 04/26/21 03:14 Acetaminophen 325 Mg Tablet PO 650 mg Q6H PRN Administration Headache/Pain Mild Scale (1-3) Al Hydroxide/Mg Hydroxide 30 ml 04/06/21 21:39 Magnesium Hydrox/Alum Hydrox 30 Ml Oral.Susp PO Q6H PRN Heartburn/Nausea Benztropine Mesylate 1 mg 04/28/21 09:00 04/28/21 09:03 Benztropine Mesylate 1 Mg Tablet PO Not Given DAILY FIDEL Clozapine 200 mg 04/27/21 21:00 04/27/21 21:03 Clozapine 100 Mg Tablet PO 200 mg BEDTIME FIDEL Administration Hydroxyzine HCl 25 mg 04/06/21 21:39 Hydroxyzine Hcl 25 Mg Tablet PO BEDTIME PRN Anxiety Magnesium Hydroxide 30 ml 04/06/21 21:39 Milk Of Magnesia 30 Ml Oral.Susp PO DAILY PRN Constipation Trazodone HCl 50 mg 04/06/21 21:39 Trazodone Hcl 50 Mg Tablet PO BEDTIME PRN Insomnia Allergies Allergies Allergy/AdvReac Type Severity Reaction Status Date / Time olanzapine [OLANZAPINE] Allergy Severe FACIAL Verified 04/06/21 10:20 SWELLING Assessment & Plan Assessment & Plan (1) Schizoaffective disorder: Status: Acute Code(s): F25.9 - Schizoaffective disorder, unspecified Assessment and Plan: Patient is a 35-year-old male with history of psychotic illness, recently charged from [facility] a few weeks ago who self presented to the emergency room saying that he ran to the hospital and if he had a gun he would shoot himself.? In ED patient was agitated and disorganized.? On floor patient received Haldol Ativan and Benadryl as a p.r.n. for agitation and was then calm.? Currently he does not want to talk but did agree to have his recent medications restarted. 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 He is not sure what medication trials he has had but says they are all on helpful -patient was recently admitted about a month ago with similar presentation barricaded himself in his apartment with blocked windows; isolating expressing concern the government is out to get him? to police department? confessing crimes, sectioned to the ED) -this admission, patient self presented to the emergency room saying he was suicidal with thoughts or plans to stab himself with a knife or shoot himself with a gun; patient has been very guarded during this admission though he has started to disclose what he is struggling with. Patient has had several explosive episodes on the unit, yelling/screaming loudly, with intensity, with clenched fists (of note, while this is frightening and makes staff concerned about safety, he has made no threat to others and denies any HI, intention or urges to do so).? He is very ambivalent about taking medications with a history of non adherence (currently says the don't work, are placebo ).? Patient has no insight at all into his psychiatric illness/psychotic symptoms.? Given the fact that patient was suicidal on admission, remains plagued by persecutory delusions with no insight and as a result tortures himself in the community, fiction and nonfiction writer prose and team agree that patient is in imminent risk for harm to self and requires continued inpatient psychiatric treatment.? Plan was rob petition for civil commitment however patient decided to sign himself in -Medication hx: shared that only med that helped was Seroquel but he is not willing to retry since coming off it (for reasons he rather not discuss) was horrible event, causing hallucinations , not being able to tell if his mother was real, insominia for 4 days straight...He does not want any medication that is sedating since he feels need to be alert and focused. ? -willing to try clozapine Hospital course and reasoning: very guarded on admission; intermittently willing to take Abilfy, prozac. Patient started to disclose more info.? However after listening to the psychotic symptoms and mood stabilizing properties of Abilify, patient said he agrees to a trial of Abilify.? Patient reports that he was feeling suicidal prior to admission but that all SI has resolved. -initially intermittent med adherent with Abilify; denies side effects; at one point said it seemed to help with racing thoughts and depression but has since he does not think this the case. -patient suffering from persecutory delusions and subsequent depression and anxiety -some modest improvement on Abilfiy 15mg; agrees to go to 30mg (pt wants to see christine if this is a beneficial medication and does not want to wait for a slower titration; fiction and nonfiction writer prose agrees with this approach). -Abilify was increased to 30 mg and patient reports some modest improvement saying feels overall a little less stressed by his chronic worries a little more able to feel comfortable with staff; however he remains guarded. -patient has been on Abilify 30 mg for about 3 days now; at 1st it seemed there was some improvement however today he reports that he is just as tormented as ever and that medication is not effective; patient references his delusional thoughts that he is being persecuted and there is no way to avoid it. He says it does not matter what I do i'm always wrong... Patient however says he is willing to stay and try clozapine trial started on 04/22/21. -patient titrated to clozapine 200 mg adding about 50 mg per day to regimen; he agreed to stay in [facility] for now, which given patient's numerous monotherapy fails leaves 1 to consider trial of 2 antipsychotics -04/28/21: Patient presents as more disorganized than usual however he is also much more forthcoming and sharing his thoughts more freely which is significantly different from his normally guarded presentation; patient also reports what sound to be like some potential medication side effects. Clozapine is rarely the cause of EPS, dystonia or NMS. However it can cause increased salivation which may explain his intermittent leak garbled talk, and low blood pressure which could explain his dizziness. He is still on Abilify which is also overall lower risk for dystonia; his also on Prozac. Will lower his Abilify and likely discontinue; will seek advice on medication regimen and continue to monitor 04/28 -Nursing informed fiction and nonfiction writer prose that patient was mumbling, seemed to be sedated, was a little shaky and diaphoretic though afebrile and hemodynamically stable; nursing also reported that he seemed to be more rigid in movements. -Water Filter Cleaner examined patient who was alert and oriented to self and situation; however he did stop in mid sentence and said he needs to stop talking for now. -Focused exam revealed very mild left arm at biceps cogwheeling; no wrist rigidity/cogwheeling right arm without any rigidity or cogwheeling appreciated -Water Filter Cleaner explained to patient that even though clozapine is very low risk for NMS or dystonia (pt did not take abilify this AM), it is important to rule this out and asked patient to be compliant with getting lab work done, to which he agreed. -patient reports increased salivation -All lab work negative ruling out any diagnostic markers for Mic S -Water Filter Cleaner discussed case with Dr. Mcleod who shared that it is possible for Prozac to elevate clozapine levels (clozapine level pending) which would account for increased disorganization, sedation, intermittent hypotenision and excessive salivation; despite complaining of rigidity, patient does not appear rigid and is walking up and down the hallways; very mild cogwheeling appreciated in left arm only -fully discontinued Abilify and fluoxetine, to which patient agreed. -will continue with clozapine as patient remains hemodynamically stable with all lab work within normal limits; will wait to see clozapine level. However patient is medically stable and given patient's history of refractory, severe paranoid, persecutory delusions, currently the need to treat patient's psychotic symptoms outweigh side effect risks how to assess Current med effect: *Pt remains guarded and frequently says he rather not discuss it... He agrees however to help fiction and nonfiction writer prose know if Abilify is helping by informing on 2 parameters: 1. is he in less overall distress (emotional) 2. is he better able to discern if fiction and nonfiction writer prose/staff is trustable (vs a part of conspiracy)/or be less confused about what to think PLAN: Continue plan as below Pt currently on CV Q 15 checks -patient likely has medication side effect however he is currently stable -clozapine level pending -NMS ruled out given lab work and presentation (and low risk given current med regimen); hemodynamically stable; afebrile -DISCONTINUE Abilify -DISCONTINUE FLUOXETINE -CONTINUE with clozapine 200 mg at bedtime -CHANGE benztropine 1 mg daily back to PRN for now since pt does not seem to have dystonia/EPS -will consider treatment for excessive salivation -ANC within normal limits -CHANGE ? Will seek collateral though currently pt does not want parents involved (patient reports that Seroquel was most effective in the past, though he said it was for something totally different; clozapine has some similarities to Seroquel as they are both low potency; pt has had numerous other med trials with little to no effect; agrees to blood draws; fiction and nonfiction writer prose reviewed risks/side effects of Clozapine) Med trials: Rispderal: possible some benefit? pt denies Abilify Haldol: dystonia? Olanzapine - allergy (face swelling) Vazquez Seroquel ECT recent 2020 hospitalizations: 09/2020 [facility] 01/2021 [facility] system 03/2021 [facility] Greater than 50% of the session was spent on counseling and/or coordination of care Reason for contiued inpatient stay Substantial Risk for: harm to self, inability to function and rapid decompensation
[2021-04-28] MEDS: Milk of Magnesia 30 ML ORAL.SUSP PO (16:50)
[2021-04-28 17:06] VITALS: BP 132/85; PULSE 108; TEMP 36.6
[2021-04-29 06:00] VITALS: BP 118/76; PULSE 107; RESP 18; TEMP 36.5; O2SAT 95
[2021-04-29 16:55] VITALS: BP 112/69; PULSE 122; TEMP 36.9
[2021-04-29] MEDS: cloZAPine 25 MG TABLET 50 MG PO (20:09)
--- NOTE | 2021-04-29 23:57 | P.PNPSI_ITS ---
Subjective Subjective Date of Service: 04/29/21 Reason For Visit: Psychosis Interim History: pt seen on 04/[address] Mcleod pt A/O x4; pt is aware that he was disoriented the past few days but reports it has resolved. Pt speaking clearly; no slurring of words or garbled speech. He knows the day, month, year, location. He says for the past few days he's had hallucinatory moments, talking to people who weren't there, but no longer. Hospital Nursing Assistant explained this seems to have been due to medication side-effect to which patient understood and since resolved agreed to keep taking Clozapine, but at a slower titration. Pt said he thinks maybe he has been getting some relief from the medication, but he is not sure. Mental Status Exam Mental Status Exam Narrative: Pt is alert and oriented; behavior is cooperative and not guarded; dressed in casual cloths with unkempt hair and marginal hygiene; mood is calm with congruent affect;?Limited and somewhat avoidant eye contact; Speech is normal rate, volume and prosody; not pressured; no psychomotor retardation present; thought process organized and linear; Thought content remains ? embroiled in concerns of being persecuted and on whether or not staff is a part of conspiracy against him; he denies AVH but has reported he gets messages from conspirators through TV, radio, people, cellphone or email; denies SI; no HI; Patients insight and judgment are impaired. Diagnostics Vital Signs (24Hr): Vital Signs - 24 hr 04/29/21 06:00 04/29/21 16:55 Temperature 97.7 F 98.4 F Pulse Rate 107 H 122 H Respiratory Rate 18 Blood Pressure 118/76 112/69 Pulse Oximetry 95 Body Mass Index 22.1 Labs Results: 04/28/21 10:00 04/28/21 10:00 Labs: Laboratory Results - last 48 hr 04/28/21 04/28/21 04/28/21 10:00 10:00 10:00 WBC 9.4 RBC 5.20 Hgb 15.5 Hct 46.6 MCV 89.6 MCH 29.8 MCHC 33.3 RDW 13.0 Plt Count 219 MPV 10.2 Immature Gran % (Auto) 0.2 Neut % (Auto) 80.0 H Lymph % (Auto) 10.0 L Alfalfa % (Auto) 8.6 Eos % (Auto) 1.0 Baso % (Auto) 0.2 Lymph # (Auto) 0.9 L Alfalfa # (Auto) 0.8 Eos # (Auto) 0.1 Baso # (Auto) 0.0 Abs Immat Gran (auto) 0.02 Absolute Neuts (auto) 7.6 Absolute Nucleated RBC 0.000 Nucleated RBC % (auto) 0.0 Sodium 145 Potassium 3.8 Chloride 107 Carbon Dioxide 25 Anion Gap 17 BUN 12 Creatinine 0.88 Estim Creat Clear Calc 118.1 Estimated GFR > 60 Total Bilirubin 2.3 H Direct Bilirubin 0.8 H AST 13 ALT 11 Alkaline Phosphatase 71 Lactate Dehydrogenase 144 Total Creatine Kinase 93 Total Protein 7.0 Albumin 4.4 Medications Medications Current Medications Generic Name Dose Route Start Last Admin Trade Name Freq PRN Reason Stop Dose Admin Acetaminophen 650 mg 04/06/21 21:39 04/26/21 03:14 Acetaminophen 325 Mg Tablet PO 650 mg Q6H PRN Administration Headache/Pain Mild Scale (1-3) Al Hydroxide/Mg Hydroxide 30 ml 04/06/21 21:39 Magnesium Hydrox/Alum Hydrox 30 Ml Oral.Susp PO Q6H PRN Heartburn/Nausea Benztropine Mesylate 1 mg 04/28/21 17:50 Benztropine Mesylate 1 Mg Tablet PO DAILY PRN EPS Clozapine 50 mg 04/29/21 21:00 04/29/21 20:09 Clozapine 25 Mg Tablet PO 04/29/21 23:59 50 mg BEDTIME FIDEL Administration Clozapine 75 mg 04/30/21 21:00 Clozapine 25 Mg Tablet PO 05/01/21 23:59 BEDTIME FIDEL Clozapine 100 mg 05/02/21 21:00 Clozapine 100 Mg Tablet PO BEDTIME FIDEL Hydroxyzine HCl 25 mg 04/06/21 21:39 Hydroxyzine Hcl 25 Mg Tablet PO BEDTIME PRN Anxiety Magnesium Hydroxide 30 ml 04/06/21 21:39 04/28/21 16:50 Milk Of Magnesia 30 Ml Oral.Susp PO 30 ml DAILY PRN Administration Constipation Trazodone HCl 50 mg 04/06/21 21:39 Trazodone Hcl 50 Mg Tablet PO BEDTIME PRN Insomnia Allergies Allergies Allergy/AdvReac Type Severity Reaction Status Date / Time olanzapine [OLANZAPINE] Allergy Severe FACIAL Verified 04/06/21 10:20 SWELLING Assessment & Plan Assessment & Plan (1) Schizoaffective disorder: Status: Acute Code(s): F25.9 - Schizoaffective disorder, unspecified Assessment and Plan: Patient is a 35-year-old male with history of psychotic illness, recently charged from am 3 a few weeks ago who self presented to the emergency room saying that he ran to the hospital and if he had a gun he would shoot himself.? In ED patient was agitated and disorganized.? On floor patient received Haldol Ativan and Benadryl as a p.r.n. for agitation and was then calm.? Currently he does not want to talk but did agree to have his recent medications restarted. 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 He is not sure what medication trials he has had but says they are all on helpful -patient was recently admitted about a month ago with similar presentation barricaded himself in his apartment with blocked windows; isolating expressing concern the government is out to get him? to police department? confessing crimes, sectioned to the ED) -this admission, patient self presented to the emergency room saying he was suicidal with thoughts or plans to stab himself with a knife or shoot himself with a gun; patient has been very guarded during this admission though he has started to disclose what he is struggling with. Patient has had several explosive episodes on the unit, yelling/screaming loudly, with intensity, with clenched fists (of note, while this is frightening and makes staff concerned about safety, he has made no threat to others and denies any HI, intention or urges to do so).? He is very ambivalent about taking medications with a history of non adherence (currently says the don't work, are placebo ).? Patient has no insight at all into his psychiatric illness/psychotic symptoms.? Given the fact that patient was suicidal on admission, remains plagued by persecutory delusions with no insight and as a result tortures himself in the community, typewriter repairer and team agree that patient is in imminent risk for harm to self and requires continued inpatient psychiatric treatment.? Plan was rob petition for civil commitment however patient decided to sign himself in -Medication hx: shared that only med that helped was Seroquel but he is not willing to retry since coming off it (for reasons he rather not discuss) was horrible event, causing hallucinations , not being able to tell if his mother was real, insominia for 4 days straight...He does not want any medication that is sedating since he feels need to be alert and focused. ? -willing to try clozapine Hospital course and reasoning: very guarded on admission; intermittently willing to take Abilfy, prozac. Patient started to disclose more info.? However after listening to the psychotic symptoms and mood stabilizing properties of Abilify, patient said he agrees to a trial of Abilify.? Patient reports that he was feeling suicidal prior to admission but that all SI has resolved. -initially intermittent med adherent with Abilify; denies side effects; at one point said it seemed to help with racing thoughts and depression but has since he does not think this the case. -patient suffering from persecutory delusions and subsequent depression and anxiety -some modest improvement on Abilfiy 15mg; agrees to go to 30mg (pt wants to see christine if this is a beneficial medication and does not want to wait for a slower titration; typewriter repairer agrees with this approach). -Abilify was increased to 30 mg and patient reports some modest improvement saying feels overall a little less stressed by his chronic worries a little more able to feel comfortable with staff; however he remains guarded. -patient has been on Abilify 30 mg for about 3 days now; at 1st it seemed there was some improvement however today he reports that he is just as tormented as ever and that medication is not effective; patient references his delusional tho ughts that he is being persecuted and there is no way to avoid it. He says it does not matter what I do i'm always wrong... Patient however says he is willing to stay and try clozapine trial started on 04/22/21. -patient titrated to clozapine 200 mg adding about 50 mg per day to regimen; he agreed to stay in Abilify for now, which given patient's numerous monotherapy fails leaves 1 to consider trial of 2 antipsychotics -04/28/21: Patient presents as more disorganized than usual however he is also much more forthcoming and sharing his thoughts more freely which is significantly different from his normally guarded presentation; patient also reports what sound to be like some potential medication side effects. Clozapine is rarely the cause of EPS, dystonia or NMS. However it can cause increased salivation which may explain his intermittent leak garbled talk, and low blood pressure which could explain his dizziness. He is still on Abilify which is also overall lower risk for dystonia; his also on Prozac. Will lower his Abilify and likely discontinue; will seek advice on medication regimen and continue to monitor 04/28 -Nursing informed typewriter repairer that patient was mumbling, seemed to be sedated, was a little shaky and diaphoretic though afebrile and hemodynamically stable; nursing also reported that he seemed to be more rigid in movements. -Hospital Nursing Assistant examined patient who was alert and oriented to self and situation; however he did stop in mid sentence and said he needs to stop talking for now. -Focused exam revealed very mild left arm at biceps cogwheeling; no wrist rigidity/cogwheeling right arm without any rigidity or cogwheeling appreciated -Hospital Nursing Assistant explained to patient that even though clozapine is very low risk for NMS or dystonia (pt did not take abilify this AM), it is important to rule this out and asked patient to be compliant with getting lab work done, to which he agreed. -patient reports increased salivation -All lab work negative ruling out any diagnostic markers for Mic S -Hospital Nursing Assistant discussed case with Dr. Mcleod who shared that it is possible for Prozac to elevate clozapine levels (clozapine level pending) which would account for increased disorganization, sedation, intermittent hypoteision and excessive salivation; despite complaining of rigidity, patient does not appear rigid and is walking up and down the hallways; very mild cogwheeling appreciated in left arm only -fully discontinued Abilify and fluoxetine, to which patient agreed. -held Clozapine night before and delirum resolved which was likely due to elevated levels of Clozpaine secondary to concomitant use of Fluoxetine which can raise levels; will continue with clozapine but retitrate at slower rate. -patient is medically stable and given patient's history of refractory, severe paranoid, persecutory delusions, currently the need to treat patient's psychotic symptoms outweigh side effect risks; typewriter repairer and patient discussed this and pt agrees to continue with Clozapine; typewriter repairer discussed case with Dr. Mcleod who agrees with this plan how to assess Current med effect: *Pt remains guarded and frequently says he rather not discuss it... He agrees however to help typewriter repairer know if Abilify is helping by informing on 2 parameters: 1. is he in less overall distress (emotional) 2. is he better able to discern if typewriter repairer/staff is trustable (vs a part of co nspiracy)/or be less confused about what to think PLAN: Continue plan as below Pt currently on CV Q 15 checks -patient likely has medication side effect however he is currently stable held Clozapine last night will restart Clozapine today at 50mg and re-titrate at slower rate -clozapine level pending -NMS ruled out given lab work and presentation (and low risk given current med regimen); hemodynamically stable; afebrile -DISCONTINUEd Abilify -DISCONTINUE dFLUOXETINE -CHANGE benztropine 1 mg daily back to PRN for now since pt does not seem to have dystonia/EPS -will consider treatment for excessive salivation -ANC within normal limits -CHANGE ? Will seek collateral though currently pt does not want parents involved (patient reports that Seroquel was most effective in the past, though he said it was for something totally different; clozapine has some similarities to Seroquel as they are both low potency; pt has had numerous other med trials with little to no effect; agrees to blood draws; typewriter repairer reviewed risks/side effects of Clozapine) Med trials: Rispderal: possible some benefit? pt denies Abilify Haldol: dystonia? Olanzapine - allergy (face swelling) [facility] Seroquel ECT recent 2020 hospitalizations: 09/2020 [facility] 01/2021 [facility] 03/2021 [facility] Greater than 50% of the session was spent on counseling and/or coordination of care Reason for contiued inpatient stay Substantial Risk for: rapid decompensation
[2021-04-30 06:00] VITALS: BP 118/73; PULSE 97; TEMP 36.6; O2SAT 97
[2021-04-30 16:30] VITALS: BP 141/75; PULSE 110
[2021-04-30] MEDS: cloZAPine 25 MG TABLET 75 MG PO (20:28)
--- NOTE | 2021-04-30 22:09 | HO.PSYCHPN ---
Subjective Subjective Date of Service: 04/30/21 Reason For Visit: Psychosis Interim History: Pt is awake, in his bed, calm, interactive. Denies current symptoms of concern, denies questions, SE, denies SI, HI. Reports depressive and anxious symptoms are 5/10. No EPS noted, however when we met pt was in bed and relaxed. Review of Systems Medical Review of Systems: unchanged Review of Systems Psychiatric: Reports anxiety, Reports depression, Reports paranoia (mild) and Reports hallucinations (when observed pacing-attentive to milieu and sensitive and responsive ) Mental Status Exam Mental Status Exam Patient Appearance: Disheveled Patient Orientation: Person, Place and Situation Level of Consciousness: Awake and Alert Patient Behavior: Talkative, Cooperative and Good Eye Contact Mood Description: Depressed and Anxious Affect Description: Depressed and Anxious Patient Cognition Impaired: Yes Ability to Follow Directions: Fair Speech Pattern: Spontaneous Speech Delusions: Paranoid Ideation Perceptual Disturbances: Derealization Thought Process: Distracted Thought Content: positive for Preoccupation and positive for Suicidal Ideation (denies) Depressive Symptoms: Increased Anxiety and Difficulty Concentrating Judgement: Fair Diagnostics Vital Signs (24Hr): Vital Signs - 24 hr 04/30/21 06:00 04/30/21 16:30 Temperature 97.8 F Pulse Rate 97 110 H Blood Pressure 118/73 141/75 H Pulse Oximetry 97 Body Mass Index 22.1 Labs Results: 04/28/21 10:00 04/28/21 10:00 Medications Medications Current Medications Generic Name Dose Route Start Last Admin Trade Name Freq PRN Reason Stop Dose Admin Acetaminophen 650 mg 04/06/21 21:39 04/26/21 03:14 Acetaminophen 325 Mg Tablet PO 650 mg Q6H PRN Administration Headache/Pain Mild Scale (1-3) Al Hydroxide/Mg Hydroxide 30 ml 04/06/21 21:39 Magnesium Hydrox/Alum Hydrox 30 Ml Oral.Susp PO Q6H PRN Heartburn/Nausea Benztropine Mesylate 1 mg 04/28/21 17:50 Benztropine Mesylate 1 Mg Tablet PO DAILY PRN EPS Clozapine 75 mg 04/30/21 21:00 04/30/21 20:28 Clozapine 25 Mg Tablet PO 05/01/21 23:59 75 mg BEDTIME FIDEL Administration Clozapine 100 mg 05/02/21 21:00 Clozapine 100 Mg Tablet PO BEDTIME FIDEL Hydroxyzine HCl 25 mg 04/06/21 21:39 Hydroxyzine Hcl 25 Mg Tablet PO BEDTIME PRN Anxiety Magnesium Hydroxide 30 ml 04/06/21 21:39 04/28/21 16:50 Milk Of Magnesia 30 Ml Oral.Susp PO 30 ml DAILY PRN Administration Constipation Trazodone HCl 50 mg 04/06/21 21:39 Trazodone Hcl 50 Mg Tablet PO BEDTIME PRN Insomnia Allergies Allergies Allergy/AdvReac Type Severity Reaction Status Date / Time olanzapine [OLANZAPINE] Allergy Severe FACIAL Verified 04/06/21 10:20 SWELLING Assessment & Plan Assessment & Plan (1) Schizoaffective disorder: Status: Acute Code(s): F25.9 - Schizoaffective disorder, unspecified Assessment and Plan: Patient is a 35-year-old male with history of psychotic illness, recently charged from am 3 a few weeks ago who self presented to the emergency room saying that he ran to the hospital and if he had a gun he would shoot himself.? In ED patient was agitated and disorganized.? On floor patient received Haldol Ativan and Benadryl as a p.r.n. for agitation and was then calm.? Currently he does not want to talk but did agree to have his recent medications restarted. 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 He is not sure what medication trials he has had but says they are all on helpful -patient was recently admitted about a month ago with similar presentation barricaded himself in his apartment with blocked windows; isolating expressing concern the government is out to get him? to police department? confessing crimes, sectioned to the ED) -this admission, patient self presented to the emergency room saying he was suicidal with thoughts or plans to stab himself with a knife or shoot himself with a gun; patient has been very guarded during this admission though he has started to disclose what he is struggling with. Patient has had several explosive episodes on the unit, yelling/screaming loudly, with intensity, with clenched fists (of note, while this is frightening and makes staff concerned about safety, he has made no threat to others and denies any HI, intention or urges to do so).? He is very ambivalent about taking medications with a history of non adherence (currently says the don't work, are placebo ).? Patient has no insight at all into his psychiatric illness/psychotic symptoms.? Given the fact that patient was suicidal on admission, remains plagued by persecutory delusions with no insight and as a result tortures himself in the community, television writer and team agree that patient is in imminent risk for harm to self and requires continued inpatient psychiatric treatment.? Plan was rob petition for civil commitment however patient decided to sign himself in -Medication hx: shared that only med that helped was Seroquel but he is not willing to retry since coming off it (for reasons he rather not discuss) was horrible event, causing hallucinations , not being able to tell if his mother was real, insominia for 4 days straight...He does not want any medication that is sedating since he feels need to be alert and focused. ? -willing to try clozapine Hospital course and reasoning: very guarded on admission; intermittently willing to take Abilfy, prozac. Patient started to disclose more info.? However after listening to the psychotic symptoms and mood stabilizing properties of Abilify, patient said he agrees to a trial of Abilify.? Patient reports that he was feeling suicidal prior to admission but that all SI has resolved. -initially intermittent med adherent with Abilify; denies side effects; at one point said it seemed to help with racing thoughts and depression but has since he does not think this the case. -patient suffering from persecutory delusions and subsequent depression and anxiety -some modest improvement on Abilfiy 15mg; agrees to go to 30mg (pt wants to see christine if this is a beneficial medication and does not want to wait for a slower titration; television writer agrees with this approach). -Abilify was increased to 30 mg and patient reports some modest improvement saying feels overall a little less stressed by his chronic worries a little more able to feel comfortable with staff; however he remains guarded. -patient has been on Abilify 30 mg for about 3 days now; at 1st it seemed there was some improvement however today he reports that he is just as tormented as ever and that medication is not effective; patient references his delusional thoughts that he is being persecuted and there is no way to avoid it. He says it does not matter what I do i'm always wrong... Patient however says he is willing to stay and try clozapine trial started on 04/22/21. -patient titrated to clozapine 200 mg adding about 50 mg per day to regimen; he agreed to stay in Abilify for now, which given patient's numerous monotherapy fails leaves 1 to consider trial of 2 antipsychotics -04/28/21: Patient presents as more disorganized than usual however he is also much more forthcoming and sharing his thoughts more freely which is significantly different from his normally guarded presentation; patient also reports what sound to be like some potential medication side effects. Clozapine is rarely the cause of EPS, dystonia or NMS. However it can cause increased salivation which may explain his intermittent leak garbled talk, and low blood pressure which could explain his dizziness. He is still on Abilify which is also overall lower risk for dystonia; his also on Prozac. Will lower his Abilify and likely discontinue; will seek advice on medication regimen and continue to monitor 04/28 -Nursing informed television writer that patient was mumbling, seemed to be sedated, was a little shaky and diaphoretic though afebrile and hemodynamically stable; nursing also reported that he seemed to be more rigid in movements. -Executive Assistant To President examined patient who was alert and oriented to self and situation; however he did stop in mid sentence and said he needs to stop talking for now. -Focused exam revealed very mild left arm at biceps cogwheeling; no wrist rigidity/cogwheeling right arm without any rigidity or cogwheeling appreciated -Executive Assistant To President explained to patient that even though clozapine is very low risk for NMS or dystonia (pt did not take abilify this AM), it is important to rule this out and asked patient to be compliant with getting lab work done, to which he agreed. -patient reports increased salivation -All lab work negative ruling out any diagnostic markers for Mic S -Executive Assistant To President discussed case with Dr. Mcleod who shared that it is possible for Prozac to elevate clozapine levels (clozapine level pending) which would account for increased disorganization, sedation, intermittent hypotenision and excessive salivation; despite complaining of rigidity, patient does not appear rigid and is walking up and down the hallways; very mild cogwheeling appreciated in left arm only -fully discontinued Abilify and fluoxetine, to which patient agreed. -will continue with clozapine as patient remains hemodynamically stable with all lab work within normal limits; will wait to see clozapine level. However patient is medically stable and given patient's history of refractory, severe paranoid, persecutory delusions, currently the need to treat patient's psychotic symptoms outweigh side effect risks how to assess Current med effect: *Pt remains guarded and frequently says he rather not discuss it... He agrees however to help television writer know if Abilify is helping by informing on 2 parameters: 1. is he in less overall distress (emotional) 2. is he better able to discern if television writer/staff is trustable (vs a part of conspiracy)/or be less confused about what to think PLAN: Continue plan as below Pt currently on CV Q 15 checks -patient likely has medication side effect however he is currently stable -clozapine level pending -NMS ruled out given lab work and presentation (and low risk given current med regimen); hemodynamically stable; afebrile -DISCONTINUE Abilify -DISCONTINUE FLUOXETINE -CONTINUE with clozapine 200 mg at bedtime -CHANGE benztropine 1 mg daily back to PRN for now since pt does not seem to have dystonia/EPS -will consider treatment for excessive salivation -ANC within normal limits -CHANGE ? Will seek collateral though currently pt does not want parents involved (patient reports that Seroquel was most effective in the past, though he said it was for something totally different; clozapine has some similarities to Seroquel as they are both low potency; pt has had numerous other med trials with little to no effect; agrees to blood draws; television writer reviewed risks/side effects of Clozapine) Med trials: Rispderal: possible some benefit? pt denies Abilify Haldol: dystonia? Olanzapine - allergy (face swelling) [place] Seroquel ECT recent 2020 hospitalizations: 09/2020 [facility] 01/2021 [facility] 03/2021 [facility] [place] 04/30/21: Continue current plan of care. Greater than 50% of the session was spent on counseling and/or coordination of care Reason for contiued inpatient stay Substantial Risk for: rapid decompensation
[2021-05-01 06:00] VITALS: BP 111/70; PULSE 73; RESP 16; TEMP 36.2; O2SAT 94
--- NOTE | 2021-05-01 19:09 | P.PNPSI_ITS ---
Subjective Subjective Date of Service: 05/01/21 Reason For Visit: Psychosis Interim History: Appears with more anxiety and preoccupation today. Walking in the halls-less oriented to environment more internally focused. Denies specific concerns. Review of Systems Psychiatric: Reports anxiety, Reports depression, Reports paranoia (mild) and Reports hallucinations (when observed pacing-attentive to milieu and sensitive and responsive ) Mental Status Exam Mental Status Exam Patient Appearance: Disheveled Patient Orientation: Person, Place and Situation Level of Consciousness: Awake and Alert Patient Behavior: Talkative, Cooperative and Good Eye Contact Mood Description: Depressed and Anxious Affect Description: Depressed and Anxious Patient Cognition Impaired: Yes Ability to Follow Directions: Fair Speech Pattern: Spontaneous Speech Delusions: Paranoid Ideation Perceptual Disturbances: Derealization Thought Process: Distracted Thought Content: positive for Preoccupation and positive for Suicidal Ideation (denies) Depressive Symptoms: Increased Anxiety and Difficulty Concentrating Judgement: Fair Diagnostics Vital Signs (24Hr): Vital Signs - 24 hr 05/01/21 06:00 Temperature 97.1 F Pulse Rate 73 Respiratory Rate 16 Blood Pressure 111/70 Pulse Oximetry 94 Body Mass Index 22.1 Labs Results: 04/28/21 10:00 04/28/21 10:00 Medications Medications Current Medications Generic Name Dose Route Start Last Admin Trade Name Freq PRN Reason Stop Dose Admin Acetaminophen 650 mg 04/06/21 21:39 04/26/21 03:14 Acetaminophen 325 Mg Tablet PO 650 mg Q6H PRN Administration Headache/Pain Mild Scale (1-3) Al Hydroxide/Mg Hydroxide 30 ml 04/06/21 21:39 Magnesium Hydrox/Alum Hydrox 30 Ml Oral.Susp PO Q6H PRN Heartburn/Nausea Benztropine Mesylate 1 mg 04/28/21 17:50 Benztropine Mesylate 1 Mg Tablet PO DAILY PRN EPS Clozapine 75 mg 04/30/21 21:00 04/30/21 20:28 Clozapine 25 Mg Tablet PO 05/01/21 23:59 75 mg BEDTIME FIDEL Administration Clozapine 100 mg 05/02/21 21:00 Clozapine 100 Mg Tablet PO BEDTIME FIDEL Hydroxyzine HCl 25 mg 04/06/21 21:39 Hydroxyzine Hcl 25 Mg Tablet PO BEDTIME PRN Anxiety Magnesium Hydroxide 30 ml 04/06/21 21:39 04/28/21 16:50 Milk Of Magnesia 30 Ml Oral.Susp PO 30 ml DAILY PRN Administration Constipation Trazodone HCl 50 mg 04/06/21 21:39 Trazodone Hcl 50 Mg Tablet PO BEDTIME PRN Insomnia Allergies Allergies Allergy/AdvReac Type Severity Reaction Status Date / Time olanzapine [OLANZAPINE] Allergy Severe FACIAL Verified 04/06/21 10:20 SWELLING Assessment & Plan Assessment & Plan (1) Schizoaffective disorder: Status: Acute Code(s): F25.9 - Schizoaffective disorder, unspecified Assessment and Plan: Patient is a 35-year-old male with history of psychotic illness, recently charged from am 3 a few weeks ago who self presented to the emergency room saying that he ran to the hospital and if he had a gun he would shoot himself.? In ED patient was agitated and disorganized.? On floor patient received Haldol Ativan and Benadryl as a p.r.n. for agitation and was then calm.? Currently he does not want to talk but did agree to have his recent medications restarted. 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 He is not sure what medication trials he has had but says they are all on helpful -patient was recently admitted about a month ago with similar presentation barricaded himself in his apartment with blocked windows; isolating expressing concern the government is out to get him? to police department? confessing crimes, sectioned to the ED) -this admission, patient self presented to the emergency room saying he was s uicidal with thoughts or plans to stab himself with a knife or shoot himself with a gun; patient has been very guarded during this admission though he has started to disclose what he is struggling with. Patient has had several explosive episodes on the unit, yelling/screaming loudly, with intensity, with clenched fists (of note, while this is frightening and makes staff concerned about safety, he has made no threat to others and denies any HI, intention or urges to do so).? He is very ambivalent about taking medications with a history of non adherence (currently says the don't work, are placebo ).? Patient has no insight at all into his psychiatric illness/psychotic symptoms.? Given the fact that patient was suicidal on admission, remains plagued by persecutory delusions with no insight and as a result tortures himself in the community, financial underwriter and team agree that patient is in imminent risk for harm to self and requires continued inpatient psychiatric treatment.? Plan was rob petition for civil commitment however patient decided to sign himself in -Medication hx: shared that only med that helped was Seroquel but he is not willing to retry since coming off it (for reasons he rather not discuss) was horrible event, causing hallucinations , not being able to tell if his mother was real, insominia for 4 days straight...He does not want any medication that is sedating since he feels need to be alert and focused. ? -willing to try clozapine Hospital course and reasoning: very guarded on admission; intermittently willing to take Abilfy, prozac. Patient started to disclose more info.? However after listening to the psychotic symptoms and mood stabilizing properties of Abilify, patient said he agrees to a trial of Abilify.? Patient reports that he was feeling suicidal prior to admission but that all SI has resolved. -initially intermittent med adherent with Abilify; denies side effects; at one point said it seemed to help with racing thoughts and depression but has since he does not think this the case. -patient suffering from persecutory delusions and subsequent depression and anxiety -some modest improvement on Abilfiy 15mg; agrees to go to 30mg (pt wants to see christine if this is a beneficial medication and does not want to wait for a slower titration; financial underwriter agrees with this approach). -Abilify was increased to 30 mg and patient reports some modest improvement saying feels overall a little less stressed by his chronic worries a little more able to feel comfortable with staff; however he remains guarded. -patient has been on Abilify 30 mg for about 3 days now; at 1st it seemed there was some improvement however today he reports that he is just as tormented as ever and that medication is not effective; patient references his delusional thoughts that he is being persecuted and there is no way to avoid it. He says it does not matter what I do i'm always wrong... Patient however says he is willing to stay and try clozapine trial started on 04/22/21. -patient titrated to clozapine 200 mg adding about 50 mg per day to regimen; he agreed to stay in Abilify for now, which given patient's numerous monotherapy fails leaves 1 to consider trial of 2 antipsychotics -04/28/21: Patient presents as more disorganized than usual however he is also much more forthcoming and sharing his thoughts more freely which is significantly different from his normally guarded presentation; patient also reports what sound to be like some potential medication side effects. Clozapine is rarely the cause of EPS, dystonia or NMS. However it can cause increased salivation which may explain his intermittent leak garbled talk, and low blood pressure which could explain his dizziness. He is still on Abilify which is a lso overall lower risk for dystonia; his also on Prozac. Will lower his Abilify and likely discontinue; will seek advice on medication regimen and continue to monitor 04/28 -Nursing informed financial underwriter that patient was mumbling, seemed to be sedated, was a little shaky and diaphoretic though afebrile and hemodynamically stable; nursing also reported that he seemed to be more rigid in movements. -President And Chief Commercial Officer examined patient who was alert and oriented to self and situation; however he did stop in mid sentence and said he needs to stop talking for now. -Focused exam revealed very mild left arm at biceps cogwheeling; no wrist rigidity/cogwheeling right arm without any rigidity or cogwheeling appreciated -President And Chief Commercial Officer explained to patient that even though clozapine is very low risk for NMS or dystonia (pt did not take abilify this AM), it is important to rule this out and asked patient to be compliant with getting lab work done, to which he agreed. -patient reports increased salivation -All lab work negative ruling out any diagnostic markers for Mic S -President And Chief Commercial Officer discussed case with Dr. Mcleod who shared that it is possible for Prozac to elevate clozapine levels (clozapine level pending) which would account for increased disorganization, sedation, intermittent hypotenision and excessive salivation; despite complaining of rigidity, patient does not appear rigid and is walking up and down the hallways; very mild cogwheeling appreciated in left arm only -fully discontinued Abilify and fluoxetine, to which patient agreed. -will continue with clozapine as patient remains hemodynamically stable with all lab work within normal limits; will wait to see clozapine level. However patient is medically stable and given patient's history of refractory, severe paranoid, persecutory delusions, currently the need to treat patient's psychotic symptoms outweigh side effect risks how to assess Current med effect: *Pt remains guarded and frequently says he rather not discuss it... He agrees however to help financial underwriter know if Abilify is helping by informing on 2 parameters: 1. is he in less overall distress (emotional) 2. is he better able to discern if financial underwriter/staff is trustable (vs a part of conspiracy)/or be less confused about what to think PLAN: Continue plan as below Pt currently on CV Q 15 checks -patient likely has medication side effect however he is currently stable -clozapine level pending -NMS ruled out given lab work and presentation (and low risk given current med regimen); hemodynamically stable; afebrile -DISCONTINUE Abilify -DISCONTINUE FLUOXETINE -CONTINUE with clozapine 200 mg at bedtime -CHANGE benztropine 1 mg daily back to PRN for now since pt does not seem to have dystonia/EPS -will consider treatment for excessive salivation -ANC within normal limits -CHANGE ? Will seek collateral though currently pt does not want parents involved (patient reports that Seroquel was most effective in the past, though he said it was for something totally different; clozapine has some similarities to Seroquel as they are both low potency; pt has had numerous other med trials with little to no effect; agrees to blood draws; financial underwriter reviewed risks/side effects of Clozapine) Med trials: Rispderal: possible some benefit? pt denies Abilify Haldol: dystonia? Olanzapine - allergy (face swelling) [place] Seroquel ECT recent 2020 hospitalizations: 09/2020 [facility] 01/2021 [facility] 03/2021 [facility] 04/30/21: Continue current plan of care. 05/01/21: Continue current plan of care. Greater than 50% of the session was spent on counseling and/or coordination of care Informed Consent: further education needed Reason for contiued inpatient stay Substantial Risk for: harm to self, harm to others, inability to function and rapid decompensation
[2021-05-01] MEDS: cloZAPine 25 MG TABLET 75 MG PO (20:22)
[2021-05-01 20:25] VITALS: BP 113/62; PULSE 78; RESP 16; TEMP 37.2; O2SAT 95
[2021-05-02 06:00] VITALS: BP 127/76; PULSE 95; RESP 16; TEMP 36.9; O2SAT 95
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
[2021-05-02] MEDS: Milk of Magnesia 30 ML ORAL.SUSP PO (15:57)
[2021-05-02 18:20] VITALS: BP 105/65; PULSE 62; RESP 16; TEMP 36.5; O2SAT 96
[2021-05-02] MEDS: cloZAPine 100 MG TABLET PO (20:58)
[2021-05-03 05:51] LABS: Clozapine (Clozaril) 856 mcg/L; Norclozapine 211 mcg/L (25-400)
[2021-05-03 06:00] VITALS: BP 118/85; PULSE 77; RESP 16; TEMP 36.2; O2SAT 96
--- NOTE | 2021-05-03 09:55 | P.PNPSI_ITS ---
Subjective Subjective Date of Service: 05/03/21 Reason For Visit: Psychosis Interim History: Patient reports continued improvement with lowering his anxiety; however he remains guarded with paranoid delusions Patient denies any medication side effects. He agrees to continue with clozapine titration. Library Clerical Assistant asked if patient was willing to continue with medications as an outpatient; patient remains ambivalent but says he will consider this. Medication Compliance: Yes Mental Status Exam Mental Status Exam Narrative: Pt is alert and oriented; behavior is marginally cooperative but with limitations; he remains guarded; dressed in casual cloths with unkempt hair and so-so hygiene; mood is 'ok ; affect constricted;?Limited and somewhat avoidant eye contact; Speech is normal rate, volume and prosody; not pressured; no psychomotor retardation present; thought process organized and linear; Thought content remains ?embroiled in concerns of being persecuted and on whether or not staff is a part of conspiracy against him; he denies AVH but has reported he gets messages from conspirators through TV, radio, people, cellphone or email; denies SI; no HI; Patients insight and judgment are impaired, but possibly improving. Diagnostics Vital Signs (24Hr): Vital Signs - 24 hr 05/02/21 18:20 05/03/21 06:00 Temperature 97.7 F 97.1 F Pulse Rate 62 77 Respiratory Rate 16 16 Blood Pressure 105/65 118/85 Pulse Oximetry 96 96 Body Mass Index 22.1 Labs Results: 04/28/21 10:00 04/28/21 10:00 Labs: Laboratory Results - last 48 hr 04/28/21 10:00 Clozapine 856 Norclozapine 211 Medications Medications Current Medications Generic Name Dose Route Start Last Admin Trade Name Freq PRN Reason Stop Dose Admin Acetaminophen 650 mg 04/06/21 21:39 04/26/21 03:14 Acetaminophen 325 Mg Tablet PO 650 mg Q6H PRN Administration Headache/Pain Mild Scale (1-3) Al Hydroxide/Mg Hydroxide 30 ml 04/06/21 21:39 Magnesium Hydrox/Alum Hydrox 30 Ml Oral.Susp PO Q6H PRN Heartburn/Nausea Benztropine Mesylate 1 mg 04/28/21 17:50 Benztropine Mesylate 1 Mg Tablet PO DAILY PRN EPS Clozapine 100 mg 05/02/21 21:00 05/02/21 20:58 Clozapine 100 Mg Tablet PO 05/03/21 23:59 100 mg BEDTIME FIDEL Administration Clozapine 100 mg/ Clozapine 25 125 mg 05/04/21 21:00 mg PO 05/05/21 23:59 BEDTIME FIDEL Clozapine 100 mg/ Clozapine 50 150 mg 05/06/21 21:00 mg PO 05/07/21 23:59 BEDTIME FIDEL Clozapine 175 mg 05/08/21 21:00 Clozapine 25 Mg Tablet PO BEDTIME FIDEL Hydroxyzine HCl 25 mg 04/06/21 21:39 Hydroxyzine Hcl 25 Mg Tablet PO BEDTIME PRN Anxiety Magnesium Hydroxide 30 ml 04/06/21 21:39 05/02/21 15:57 Milk Of Magnesia 30 Ml Oral.Susp PO 30 ml DAILY PRN Administration Constipation Trazodone HCl 50 mg 04/06/21 21:39 Trazodone Hcl 50 Mg Tablet PO BEDTIME PRN Insomnia Allergies Allergies Allergy/AdvReac Type Severity Reaction Status Date / Time olanzapine [OLANZAPINE] Allergy Severe FACIAL Verified 04/06/21 10:20 SWELLING Assessment & Plan Assessment & Plan (1) Schizoaffective disorder: Status: Acute Code(s): F25.9 - Schizoaffective disorder, unspecified Assessment and Plan: Patient is a 35-year-old male with history of psychotic illness, recently charged from am 3 a few weeks ago who self presented to the emergency room saying that he ran to the hospital and if he had a gun he would shoot himself.? In ED patient was agitated and disorganized.? On floor patient received Haldol Ativan and Benadryl as a p.r.n. for agitation and was then calm.? Currently he does not want to talk but did agree to have his recent medications restarted. Admit patient for safety and medication management Hospital course and reasoning:very guarded on admission; 1. Started on Abilify and Prozac intermittently willing to take Abilfy, prozac. Patient started to disclose more info.? However after listening to the psychotic symptoms and mood stabilizing properties of Abilify, patient said he agrees to a trial of Abilify.? Patient re ports that he was feeling suicidal prior to admission but that all SI has resolved. -initially intermittent med adherent with Abilify; denies side effects; at one point said it seemed to help with racing thoughts and depression but has since he does not think this the case. -patient suffering from persecutory delusions and subsequent depression and anxiety -some modest improvement on Abilfiy 15mg; agrees to go to 30mg (pt wants to see christine if this is a beneficial medication and does not want to wait for a slower titration; conventional mortgage underwriter agrees with this approach). -Abilify was increased to 30 mg and patient reports some modest improvement saying feels overall a little less stressed by his chronic worries a little more able to feel comfortable with staff; however he remains guarded. -patient has been on Abilify 30 mg for about 3 days now; at 1st it seemed there was some improvement however today he reports that he is just as tormented as ever and that medication is not effective; patient references his delusional thoughts that he is being persecuted and there is no way to avoid it. He says it does not matter what I do i'm always wrong... Patient however says he is willing to stay and try clozapine trial started on 04/22/21. 2. Started on Clozapine: -patient titrated to clozapine 200 mg adding about 50 mg per day to regimen; he agreed to stay in [facility] for now, which given patient's numerous monotherapy fails leaves 1 to consider trial of 2 antipsychotics 3. Delirium from too much Clozapine: likely due to being on prozac simultan eaously which raised clozapine levels -on apr 28 Patient presents as more disorganized than usual however he is also much more forthcoming and sharing his thoughts more freely which is significantly different from his normally guarded presentation; patient also reports what sound to be like some potential medication side effects. Clozapine is rarely the cause of EPS, dystonia or NMS. However it can cause increased salivation which may explain his intermittent leak garbled talk, and low blood p ressure which could explain his dizziness. He is still on Abilify which is also overall lower risk for dystonia; his also on Prozac. Will lower his Abilify and likely discontinue; will seek advice on medication regimen and continue to monitor 04/28-Nursing informed conventional mortgage underwriter that patient was mumbling, seemed to be sedated, was a little shaky and diaphoretic though afebrile and hemodynamically stable; nursing also reported that he seemed to be more rigid in movements. -Library Clerical Assistant examined patient who was alert and oriented to self and situation; however he did stop in mid sentence and said he needs to stop talking for now. -Focused exam revealed very mild left arm at biceps cogwheeling; no wrist ri gidity/cogwheeling right arm without any rigidity or cogwheeling appreciated -Library Clerical Assistant explained to patient that even though clozapine is very low risk for NMS or dystonia (pt did not take abilify this AM), it is important to rule this out and asked patient to be compliant with getting lab work done, to which he agreed. -patient reports increased salivation -NMS rulled out: All lab work negative ruling out any diagnostic markers for NMS -Library Clerical Assistant discussed case with Dr. Mcleod who shared that it is possible for Prozac to elevate clozapine levels (clozapine level pending) which would account for increased disorganization, sedation, intermittent hypoteision and excessive salivation; despite complaining of rigidity, patient does not appear rigid and is walking up and down the hallways; very mild cogwheeling appreciated in left arm only -fully discontinued Abilify and fluoxetine, to which patient agreed. -held Clozapine night before and delirum resolved which was likely due to elevated levels of Clozpaine secondary to concomitant use of Fluoxetine which can raise levels (clozapine level was suprtherapeutic and explains delirum); will continue with clozapine but retitrate at slower rate. -patient is medically stable and given patient's history of refractory, severe paranoid, persecutory delusions, currently the need to treat patient's psychotic symptoms outweigh side effect risks; conventional mortgage underwriter and patient discussed this and pt agrees to continue with Clozapine; conventional mortgage underwriter discussed case with Dr. Mcleod who agrees with this plan. Ended up holding Clozapine for 2 nights and Delirum fully resovled and Clozapine restarted 4. Clozapine restarted and re-trated but at slower rate pt mildly better saying he has less racing thoughts, anxiety and depression. Still paranoid delusions. Agrees to continued titration of Clozapine. how to assess Current med effect: *Pt remains guarded and frequently says he rather not discuss it... He agrees however to help conventional mortgage underwriter know if Abilify is helping by informing on 2 parameters: 1. is he in less overall distress (emotional) 2. is he better able to discern if conventional mortgage underwriter/staff is trustable (vs a part of conspiracy)/or be less confused about what to think PLAN: Continue plan as below Pt currently on CV Q 15 checks Clozapine being titrating to 200mg -Dc'd Abilify -dc'd prozac -benztropine 1 mg daily PRN -ANC within normal limits; checked weekly? Will seek collateral though currently pt does not want parents involved PAST PSYCH HX: (patient reports that Seroquel was most effective in the past, though he said it was for something totally different; clozapine has some similarities to Seroquel as they are both low potency; pt has had numerous other med trials with little to no effect; agrees to blood draws; conventional mortgage underwriter reviewed risks/side effects of Clozapine) Med trials: Rispderal: possible some benefit? pt denies Abilify Haldol: dystonia? 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 confessing crimes, sectioned to the ED) -this admission, patient self presented to the emergency room saying he was suicidal with thoughts or plans to stab himself with a knife or shoot himself with a gun; patient has been very guarded during this admission though he has started to disclose what he is struggling with. Patient has had several explosive episodes on the unit, yelling/screaming loudly, with intensity, with clenched fists (of note, while this is frightening and makes staff concerned about safety, he has made no threat to others and denies any HI, intention or urges to do so). ?He is very ambivalent about taking medications with a history of non adherence (currently says the don't work, are placebo ). ?Patient has no insight at all into his psychiatric illness/psychotic symptoms. ?Given the fact that patient was suicidal on admission, remains plagued by persecutory delusions with no insight and as a result tortures himself in the community, conventional mortgage underwriter and team agree that patient is in imminent risk for harm to self and requires continued inpatient psychiatric treatment.? Plan was rob petition for civil commitment however patient decided to sign himself in -Medication hx: shared that only med that helped was Seroquel but he is not willing to retry since coming off it (for reasons he rather not discuss) was horrible event, causing hallucinations , not being able to tell if his mother was real, insominia for 4 days straight...He does not want any medication that is sedating since he feels need to be alert and focused. Greater than 50% of the session was spent on counseling and/or coordination of care Reason for contiued inpatient stay Substantial Risk for: rapid decompensation
[2021-05-03] MEDS: Milk of Magnesia 30 ML ORAL.SUSP PO (12:06)
[2021-05-03 16:00] VITALS: BP 109/77; PULSE 77; TEMP 36.4
[2021-05-03] MEDS: cloZAPine 100 MG TABLET PO (20:11)
[2021-05-04 06:00] VITALS: BP 108/73; PULSE 72; RESP 16; TEMP 36.3; O2SAT 95
[2021-05-04] MEDS: Magnesium Citrate 300 ML SOLUTION PO (13:51)
[2021-05-04 16:42] VITALS: BP 106/73; PULSE 80; RESP 18; TEMP 36.1; O2SAT 98
--- NOTE | 2021-05-04 17:32 | P.PNPSI_ITS ---
Subjective Subjective Date of Service: 05/04/21 Reason For Visit: Psychosis Interim History: pt seen on 05/04 pt remains guarded, delusional but denies SI; willing to continue taking/titrating clozapine Mental Status Exam Mental Status Exam Narrative: Pt is alert and oriented; behavior is marginally cooperative but with limitations; he remains guarded; dressed in casual cloths with unkempt hair and so-so hygiene; mood is 'ok ; affect constricted;?Limited and somewhat avoidant eye contact; Speech is normal rate, volume and prosody; not pressured; no psychomotor retardation present; thought process organized and linear; Thought content remains ?embroiled in concerns of being persecuted and on whether or not staff is a part of conspiracy against him; he denies AVH but has reported he g ets messages from conspirators through TV, radio, people, cellphone or email; denies SI/ HI; Patients insight and judgment are impaired, but possibly improving. Diagnostics Vital Signs (24Hr): Vital Signs - 24 hr 05/04/21 06:00 05/04/21 16:42 Temperature 97.4 F 97.0 F Pulse Rate 72 80 Respiratory Rate 16 18 Blood Pressure 108/73 106/73 Pulse Oximetry 95 98 Body Mass Index 22.1 Labs Results: 05/12/21 07:54 04/28/21 10:00 Labs: Laboratory Results - last 48 hr 04/28/21 10:00 Clozapine 856 Norclozapine 211 Medications Medications Current Medications Generic Name Dose Route Start Last Admin Trade Name Freq PRN Reason Stop Dose Admin Acetaminophen 650 mg 04/06/21 21:39 04/26/21 03:14 Acetaminophen 325 Mg Tablet PO 650 mg Q6H PRN Administration Headache/Pain Mild Scale (1-3) Al Hydroxide/Mg Hydroxide 30 ml 04/06/21 21:39 Magnesium Hydrox/Alum Hydrox 30 Ml Oral.Susp PO Q6H PRN Heartburn/Nausea Benztropine Mesylate 1 mg 04/28/21 17:50 Benztropine Mesylate 1 Mg Tablet PO DAILY PRN EPS Clozapine 100 mg/ Clozapine 25 125 mg 05/04/21 21:00 mg PO 05/05/21 23:59 BEDTIME FIDEL Clozapine 100 mg/ Clozapine 50 150 mg 05/06/21 21:00 mg PO 05/07/21 23:59 BEDTIME FIDEL Clozapine 175 mg 05/08/21 21:00 Clozapine 25 Mg Tablet PO 05/09/21 23:59 BEDTIME FIDEL Clozapine 200 mg 05/10/21 21:00 Clozapine 100 Mg Tablet PO BEDTIME FIDEL Hydroxyzine HCl 25 mg 04/06/21 21:39 Hydroxyzine Hcl 25 Mg Tablet PO BEDTIME PRN Anxiety Magnesium Hydroxide 30 ml 04/06/21 21:39 05/03/21 12:06 Milk Of Magnesia 30 Ml Oral.Susp PO 30 ml DAILY PRN Administration Constipation Trazodone HCl 50 mg 04/06/21 21:39 Trazodone Hcl 50 Mg Tablet PO BEDTIME PRN Insomnia Allergies Allergies Allergy/AdvReac Type Severity Reaction Status Date / Time olanzapine [OLANZAPINE] Allergy Severe FACIAL Verified 04/06/21 10:20 SWELLING Assessment & Plan Assessment & Plan (1) Schizoaffective disorder: Status: Chronic Code(s): F25.9 - Schizoaffective disorder, unspecified Assessment and Plan: Patient is a 35-year-old male with history of psychotic illness, recently charged from [facility] a few weeks ago who self presented to the emergency room saying that he ran to the hospital and if he had a gun he would shoot himself.? In ED patient was agitated and disorganized.? On floor patient received Haldol Ativan and Benadryl as a p.r.n. for agitation and was then calm.? Currently he does not want to talk but did agree to have his recent medications restarted. Admit patient for safety and medication management Hospital course and reasoning:very guarded on admission; 1. Started on Abilify and Prozac intermittently willing to take Abilfy, prozac. Patient started to disclose more info.? However after listening to the psychotic symptoms and mood stabilizing properties of Abilify, patient said he agrees to a trial of Abilify.? Patient reports that he was feeling suicidal prior to admission but that all SI has resolved. -initially intermittent med adherent with Abilify; denies side effects; at one point said it seemed to help with racing thoughts and depression but has since he does not think this the case. -patient suffering from persecutory delusions and subsequent depression and anxiety -some modest improvement on Abilfiy 15mg; agrees to go to 30mg (pt wants to see christine if this is a beneficial medication and does not want to wait for a slower titration; typewriter assembler agrees with this approach). -Abilify was increased to 30 mg and patient reports some modest improvement saying feels overall a little less stressed by his chronic worries a little more able to feel comfortable with staff; however he remains guarded. -patient has been on Abilify 30 mg for about 3 days now; at 1st it seemed there was some improvement however today he reports that he is just as tormented as ever and that medication is not effective; patient references his delusional thoughts that he is being persecuted and there is no way to avoid it. He says it does not matter what I do i'm always wrong... Patient however says he is willing to stay and try clozapine trial started on 04/22/21. 2. Started on Clozapine: -patient titrated to clozapine 200 mg adding about 50 mg per day to regimen; he agreed to stay in [facility] for now, which given patient's numerous monotherapy fails leaves 1 to consider trial of 2 antipsychotics 3. Delirium from too much Clozapine: likely due to being on prozac simultaneaously which raised clozapine levels -on apr 28 Patient presents as more disorganized than usual however he is also much more forthcoming and sharing his thoughts more freely which is significantly different from his normally guarded presentation; patient also reports what sound to be like some potential medication side effects. Clozapine is rarely the cause of EPS, dystonia or NMS. However it can cause increased salivation which may explain his intermittent leak garbled talk, and low blood pressure which could explain his dizziness. He is still on Abilify which is also overall lower risk for dystonia; his also on Prozac. Will lower his Abilify and likely discontinue; will seek advice on medication regimen and continue to monitor 04/28-Nursing informed typewriter assembler that patient was mumbling, seemed to be sedated, was a little shaky and diaphoretic though afebrile and hemodynamically stable; nursing also reported that he seemed to be more rigid in movements. -Acquisition Professional examined patient who was alert and oriented to self and situation; however he did stop in mid sentence and said he needs to stop talking for now. -Focused exam revealed very mild left arm at biceps cogwheeling; no wrist rigidity/cogwheeling right arm without any rigidity or cogwheeling appreciated -Acquisition Professional explained to patient that even though clozapine is very low risk for NMS or dystonia (pt did not take abilify this AM), it is important to rule this out and asked patient to be compliant with getting lab work done, to which he agreed. -patient reports increased salivation -NMS rulled out: All lab work negative ruling out any diagnostic markers for NMS -Acquisition Professional discussed case with Dr. Mcleod who shared that it is possible for Prozac to elevate clozapine levels (clozapine level pending) which would account for increased disorganization, sedation, intermittent hypoteision and excessive salivation; despite complaining of rigidity, patient does not appear rigid and is walking up and down the hallways; very mild cogwheeling appreciated in left arm only -fully discontinued Abilify and fluoxetine, to which patient agreed. -held Clozapine night before and delirum resolved which was likely due to elevated levels of Clozpaine secondary to concomitant use of Fluoxetine which can raise levels (clozapine level was suprtherapeutic and explains delirum); will continue with clozapine but retitrate at slower rate. -patient is medically stable and given patient's history of refractory, severe paranoid, persecutory delusions, currently the need to treat patient's psychotic symptoms outweigh side effect risks; typewriter assembler and patient discussed this and pt agrees to continue with Clozapine; typewriter assembler discussed case with Dr. Mcleod who agrees with this plan. Ended up holding Clozapine for 2 nights and Delirum fully resovled and Clozapine restarted 4. Clozapine restarted and re-trated but at slower rate pt mildly better saying he has less racing thoughts, anxiety and depression. Still paranoid delusions. Agrees to continued titration of Clozapine. how to assess Current med effect: *Pt remains guarded and frequently says he rather not discuss it... He agrees however to help typewriter assembler know if Abilify is helping by informing on 2 parameters: 1. is he in less overall distress (emotional) 2. is he better able to discern if typewriter assembler/staff is trustable (vs a part of conspiracy)/or be less confused about what to think PLAN: Continue plan as below Pt currently on CV Q 15 checks Clozapine being titrating to 200mg -Dc'd Abilify -dc'd prozac -benztropine 1 mg daily PRN -ANC within normal limits; checked weekly? Will seek collateral though currently pt does not want parents involved PAST PSYCH HX: (patient reports that Seroquel was most effective in the past, though he said it was for something totally different; clozapine has some similarities to Seroquel as they are both low potency; pt has had numerous other med trials with little to no effect; agrees to blood draws; typewriter assembler reviewed risks/side effects of Clozapine) Med trials: Rispderal: possible some benefit? pt denies Abilify Haldol: dystonia? 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 confessing crimes, sectioned to the ED) -this admission, patient self presented to the emergency room saying he was suicidal with thoughts or plans to stab himself with a knife or shoot himself with a gun; patient has been very guarded during this admission though he has started to disclose what he is struggling with. Patient has had several explosive episodes on the unit, yelling/screaming loudly, with intensity, with clenched fists (of note, while this is frightening and makes staff concerned about safety, he has made no threat to others and denies any HI, intention or urges to do so). ?He is very ambivalent about taking medications with a history of non adherence (currently says the don't work, are placebo ). ?Patient has no insight at all into his psychiatric illness/psychotic symptoms. ?Given the fact that patient was suicidal on admission, remains plagued by persecutory delusions with no insight and as a result tortures himself in the community, typewriter assembler and team agree that patient is in imminent risk for harm to self and requires continued inpatient psychiatric treatment.? Plan was rob petition for civil commitment however patient decided to sign himself in -Medication hx: shared that only med that helped was Seroquel but he is not willing to retry since coming off it (for reasons he rather not discuss) was horrible event, causing hallucinations , not being able to tell if his mother was real, insominia for 4 days straight...He does not want any medication that is sedating since he feels need to be alert and focused. Greater than 50% of the session was spent on counseling and/or coordination of care Reason for contiued inpatient stay Substantial Risk for: med/psych decompensation
[2021-05-04] MEDS: cloZAPine 100 MG, cloZAPine 25 MG 125 MG PO (21:32)
[2021-05-05 06:00] VITALS: BP 114/62; PULSE 76; RESP 16; TEMP 36.2; O2SAT 94
[2021-05-05 07:00] VITALS: BMI 21.5
[2021-05-05 08:28] LABS: MANUAL DIFF FLAG NO
[2021-05-05 08:31] LABS: Basophils Percent Auto 0.3 % (0-2); Basophils Percent Auto 0.5 % (0-2); Eosinophils Absolute Auto 0.3 X10*3/uL (0.0-0.4); Eosinophils Percent Auto 3.8 % (0-4); Hematocrit 42.9 % (42-52); Hematocrit 43.3 % (42-52); Hemoglobin 14.5 g/dl (14.0-18.0); Hemoglobin 14.7 g/dl (14.0-18.0); Imm Gran Abs Auto 0.03 X10*3/uL (0.00-0.03); Imm Gran Pct Auto 0.3 % (0.0-0.4); Lymphocytes Absolute Auto 1.6 X10*3/uL (1.2-4.9); Lymphocytes Percent Auto 18.4 % (20-40); Lymphocytes Percent Auto 18.6 % (20-40); Mean Corpuscular HGB Conc 33.8 g/dl (31.0-36.0); Mean Corpuscular HGB Conc 33.9 g/dl (31.0-36.0); Mean Corpuscular Hemoglobin 29.7 pg (27.0-33.0); Mean Corpuscular Hemoglobin 29.9 pg (27.0-33.0); Mean Corpuscular Volume 87.9 fL (80-98); Mean Platelet Volume 9.5 fL (9.4-12.4); Mean Platelet Volume 9.8 fL (9.4-12.4); Monocytes Absolute Auto 0.8 X10*3/uL (0.1-1.2); Monocytes Percent Auto 8.7 % (2-11); Monocytes Percent Auto 8.8 % (2-11); Neutrophils Absolute Auto 5.9 X10*3/uL (2.0-8.3); Neutrophils Percent Auto 68.1 % (45-73); Neutrophils Percent Auto 68.4 % (45-73); Platelet Count 247 X10*3/uL (160-400); Platelet Count 252 X10*3/uL (160-400); Red Blood Count 4.88 X10*6/uL (4.60-5.80); Red Blood Count 4.92 X10*6/uL (4.60-5.80); Red Cell Distribution Width 12.6 % (11.0-16.0); Red Cell Distribution Width 12.7 % (11.0-16.0); White Blood Count 8.6 X10*3/uL (4.8-10.8); White Blood Count 8.7 X10*3/uL (4.8-10.8)
[2021-05-05 18:55] VITALS: BP 131/79; PULSE 73; TEMP 37.1
[2021-05-05] MEDS: cloZAPine 100 MG, cloZAPine 25 MG 125 MG PO (20:06)
--- NOTE | 2021-05-05 22:11 | HO.PSYCHPN ---
Subjective Subjective Date of Service: 05/15/23 Reason For Visit: Psychosis Interim History: pt seen on 05/05 no changes; guarded and delusional; still not trusting staff but continues to be willing to take clozapine and tritrate to higher doses; feels little better but not willing attribute to medication Mental Status Exam Mental Status Exam Narrative: ?Pt is alert and oriented; behavior is marginally cooperative but with limitations; he remains guarded; dressed in casual cloths with unkempt hair and so-so hygiene; mood is depressed; affect constricted;?Limited and somewhat avoidant eye contact; Speech is normal rate, volume and prosody; not pressured; no psychomotor retardation present; thought process organized and linear; Thought content remains ?embroiled in concerns of being persecuted and on whether or not staff is a part of conspiracy against him; he denies AVH but has reported he gets messages from conspirators through TV, radio, people, cellphone or email; denies SI/ HI; Patients insight and judgment are impaired, but possibly improving. Diagnostics Vital Signs (24Hr): Vital Signs - 24 hr 05/05/21 06:00 05/05/21 18:55 Temperature 97.1 F 98.7 F Pulse Rate 76 73 Respiratory Rate 16 Blood Pressure 114/62 131/79 Pulse Oximetry 94 Body Mass Index 21.5 Labs 05/12/21 07:54 04/28/21 10:00 Labs: Laboratory Results - last 48 hr 05/05/21 05/05/21 08:04 08:04 WBC 8.7 8.6 RBC 4.88 4.92 Hgb 14.5 14.7 Hct 42.9 43.3 MCV 87.9 88.0 MCH 29.7 29.9 MCHC 33.8 33.9 RDW 12.7 12.6 Plt Count 252 247 MPV 9.8 9.5 Immature Gran % (Auto) 0.3 0.3 Neut % (Auto) 68.1 68.4 Lymph % (Auto) 18.6 L 18.4 L [place] % (Auto) 8.7 8.8 Eos % (Auto) 3.8 3.8 Baso % (Auto) 0.5 0.3 Lymph # (Auto) 1.6 1.6 [place] # (Auto) 0.8 0.8 Eos # (Auto) 0.3 0.3 Baso # (Auto) 0.0 0.0 Abs Immat Gran (auto) 0.03 0.03 Absolute Neuts (auto) 5.9 5.9 Absolute Nucleated RBC 0.000 0.000 Nucleated RBC % (auto) 0.0 0.0 Medications Medications Current Medications Generic Name Dose Route Start Last Admin Trade Name Freq PRN Reason Stop Dose Admin Acetaminophen 650 mg 04/06/21 21:39 04/26/21 03:14 Acetaminophen 325 Mg Tablet PO 650 mg Q6H PRN Administration Headache/Pain Mild Scale (1-3) Al Hydroxide/Mg Hydroxide 30 ml 04/06/21 21:39 Magnesium Hydrox/Alum Hydrox 30 Ml Oral.Susp PO Q6H PRN Heartburn/Nausea Benztropine Mesylate 1 mg 04/28/21 17:50 Benztropine Mesylate 1 Mg Tablet PO DAILY PRN EPS Clozapine 100 mg/ Clozapine 25 125 mg 05/04/21 21:00 05/05/21 20:06 mg PO 05/05/21 23:59 125 mg BEDTIME FIDEL Administration Clozapine 100 mg/ Clozapine 50 150 mg 05/06/21 21:00 mg PO 05/07/21 23:59 BEDTIME FIDEL Clozapine 175 mg 05/08/21 21:00 Clozapine 25 Mg Tablet PO 05/09/21 23:59 BEDTIME FIDEL Clozapine 200 mg 05/10/21 21:00 Clozapine 100 Mg Tablet PO BEDTIME FIDEL Hydroxyzine HCl 25 mg 04/06/21 21:39 Hydroxyzine Hcl 25 Mg Tablet PO BEDTIME PRN Anxiety Magnesium Hydroxide 30 ml 04/06/21 21:39 05/03/21 12:06 Milk Of Magnesia 30 Ml Oral.Susp PO 30 ml DAILY PRN Administration Constipation Trazodone HCl 50 mg 04/06/21 21:39 Trazodone Hcl 50 Mg Tablet PO BEDTIME PRN Insomnia Allergies Allergies Allergy/AdvReac Type Severity Reaction Status Date / Time olanzapine [OLANZAPINE] Allergy Severe FACIAL Verified 04/06/21 10:20 SWELLING Assessment & Plan Assessment & Plan (1) Schizoaffective disorder: Status: Chronic Code(s): F25.9 - Schizoaffective disorder, unspecified Assessment and Plan: Patient is a 35-year-old male with history of psychotic illness, recently charged from am 3 a few weeks ago who self presented to the emergency room saying that he ran to the hospital and if he had a gun he would shoot himself.? In ED patient was agitated and disorganized.? On floor patient received Haldol Ativan and Benadryl as a p.r.n. for agitation and was then calm.? Currently he does not want to talk but did agree to have his recent medications restarted. Admit patient for safety and medication management Hospital course and reasoning:very guarded on admission; 1. Started on Abilify and Prozac intermittently willing to take Abilfy, prozac. Patient started to disclose more info.? However after listening to the psychotic symptoms and mood stabilizing properties of Abilify, patient said he agrees to a trial of Abilify.? Patient reports that he was feeling suicidal prior to admission but that all SI has resolved. -initially intermittent med adherent with Abilify; denies side effects; at one point said it seemed to help with racing thoughts and depression but has since he does not think this the case. -patient suffering from persecutory delusions and subsequent depression and anxiety -some modest improvement on Abilfiy 15mg; agrees to go to 30mg (pt wants to see christine if this is a beneficial medication and does not want to wait for a slower titration; medical technical writer agrees with this approach). -Abilify was increased to 30 mg and patient reports some modest improvement saying feels overall a little less stressed by his chronic worries a little more able to feel comfortable with staff; however he remains guarded. -patient has been on Abilify 30 mg for about 3 days now; at 1st it seemed there was some improvement however today he reports that he is just as tormented as ever and that medication is not effective; patient references his delusional thoughts that he is being persecuted and there is no way to avoid it. He says it does not matter what I do i'm always wrong... Patient however says he is willing to stay and try clozapine trial started on 04/22/21. 2. Started on Clozapine: -patient titrated to clozapine 200 mg adding about 50 mg per day to regimen; he agreed to stay in [facility] for now, which given patient's numerous monotherapy fails leaves 1 to consider trial of 2 antipsychotics 3. Delirium from too much Clozapine: likely due to being on prozac simultaneaously which raised clozapine levels -on apr 28 Patient presents as more disorganized than usual however he is also much more forthcoming and sharing his thoughts more freely which is significantly different from his normally guarded presentation; patient also reports what sound to be like some potential medication side effects. Clozapine is rarely the cause of EPS, dystonia or NMS. However it can cause increased salivation which may explain his intermittent leak garbled talk, and low blood pressure which could explain his dizziness. He is still on Abilify which is also overall lower risk for dystonia; his also on Prozac. Will lower his Abilify and likely discontinue; will seek advice on medication regimen and continue to monitor 04/28-Nursing informed medical technical writer that patient was mumbling, seemed to be sedated, was a little shaky and diaphoretic though afebrile and hemodynamically stable; nursing also reported that he seemed to be more rigid in movements. -Advertising Assistant examined patient who was alert and oriented to self and situation; however he did stop in mid sentence and said he needs to stop talking for now. -Focused exam revealed very mild left arm at biceps cogwheeling; no wrist rigidity/cogwheeling right arm without any rigidity or cogwheeling appreciated -Advertising Assistant explained to patient that even though clozapine is very low risk for NMS or dystonia (pt did not take abilify this AM), it is important to rule this out and asked patient to be compliant with getting lab work done, to which he agreed. -patient reports increased salivation -NMS rulled out: All lab work negative ruling out any diagnostic markers for NMS -Advertising Assistant discussed case with Dr. Mcleod who shared that it is possible for Prozac to elevate clozapine levels (clozapine level pending) which would account for increased disorganization, sedation, intermittent hypoteision and excessive salivation; despite complaining of rigidity, patient does not appear rigid and is walking up and down the hallways; very mild cogwheeling appreciated in left arm only -fully discontinued Abilify and fluoxetine, to which patient agreed. -held Clozapine night before and delirum resolved which was likely due to elevated levels of Clozpaine secondary to concomitant use of Fluoxetine which can raise levels (clozapine level was suprtherapeutic and explains delirum); will continue with clozapine but retitrate at slower rate. -patient is medically stable and given patient's history of refractory, severe paranoid, persecutory delusions, currently the need to treat patient's psychotic symptoms outweigh side effect risks; medical technical writer and patient discussed this and pt agrees to continue with Clozapine; medical technical writer discussed case with Dr. Mcleod who agrees with this plan. Ended up holding Clozapine for 2 nights and Delirum fully resovled and Clozapine restarted 4. Clozapine restarted and re-trated but at slower rate pt better saying he has less racing thoughts, anxiety and depression. Still paranoid delusions. Agrees to continued titration of Clozapine. Patient reports continued improvement in anxiety and depression and though still with paranoid delusions is overall less distressed by them and feels less burdened by them. He does report getting continued messages from conspiracy or is however these to are less intense and less stressful. Patient and medical technical writer discussed option of discharge and continuing treatment as an outpatient. Patient feels like this is a possibility and will consider at over the next few days. He reports feeling overall stable and safe and denies any SI or HI. Although he remains ambivalent about the effect of clozapine he seems to feel like he can commit to taking it for certain amount of time to see if it remains effective. how to assess Current med effect: *Pt remains guarded and frequently says he rather not discuss it... He agrees however to help medical technical writer know if Abilify is helping by informing on 2 parameters: 1. is he in less overall distress (emotional) 2. is he better able to discern if medical technical writer/staff is trustable (vs a part of conspiracy)/or be less confused about what to think PLAN: Continue plan as below Pt currently on CV Q 15 checks Clozapine being titrating to 200mg -Dc'd Abilify -dc'd prozac -benztropine 1 mg daily PRN -ANC within normal limits; checked weekly? Will seek collateral though currently pt does not want parents involved PAST PSYCH HX: (patient reports that Seroquel was most effective in the past, though he said it was for something totally different; clozapine has some similarities to Seroquel as they are both low potency; pt has had numerous other med trials with little to no effect; agrees to blood draws; medical technical writer reviewed risks/side effects of Clozapine) Med trials: Rispderal: possible some benefit? pt denies Abilify Haldol: dystonia? 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 confessing crimes, sectioned to the ED) -this admission, patient self presented to the emergency room saying he was suicidal with thoughts or plans to stab himself with a knife or shoot himself with a gun; patient has been very guarded during this admission though he has started to disclose what he is struggling with. Patient has had several explosive episodes on the unit, yelling/screaming loudly, with intensity, with clenched fists (of note, while this is frightening and makes staff concerned about safety, he has made no threat to others and denies any HI, intention or urges to do so). ?He is very ambivalent about taking medications with a history of non adherence (currently says the don't work, are placebo ). ?Patient has no insight at all into his psychiatric illness/psychotic symptoms. ?Given the fact that patient was suicidal on admission, remains plagued by persecutory delusions with no insight and as a result tortures himself in the community, medical technical writer and team agree that patient is in imminent risk for harm to self and requires continued inpatient psychiatric treatment.? Plan was rob petition for civil commitment however patient decided to sign himself in -Medication hx: shared that only med that helped was Seroquel but he is not willing to retry since coming off it (for reasons he rather not discuss) was horrible event, causing hallucinations , not being able to tell if his mother was real, insominia for 4 days straight...He does not want any medication that is sedating since he feels need to be alert and focused. Greater than 50% of the session was spent on counseling and/or coordination of care Patient educated on: diagnosis and medication risk/benefits Reason for contiued inpatient stay Substantial Risk for: stable for discharge and med/psych decompensation
--- NOTE | 2021-05-06 09:41 | HO.PSYCHPN ---
Subjective Subjective Date of Service: 05/06/21 Reason For Visit: Psychosis Interim History: Patient reports that his anxiety and depression are still in partial remission; he is sleeping well denies SI. He still does not know what to do or think about many situations and remains concerned about being persecuted if for making the wrong decision. However, it is note worthy to mention he feels less intruded upon by those persecuting him and while he reports he still receives messages from those persecuting him, he acknowledges that message are less frequent and intrusive. He remains very ambivalent about whether this is due to the medication or it is just due time and being given a break about those perscuting him; he also is ambivalent whether or not this lessening of symptoms is a good thing or not. Patient reports inguinal pain; he is not sure if it is from a pulled muscle or possibly an inguinal hernia but says it's been consistent for weeks; bothers him when he walks which is most of the day, but does not bother him when he lies down. On-call provider placed medical consult to assess; typewriter assembly and parts inspector agreed to add ibuprofen to regimen. Patient was constipated for the past few days however Mag citrate has resolved this Mental Status Exam Mental Status Exam Narrative: Pt is alert and oriented; behavior is marginally cooperative and with limitations; he remains guarded; dressed in casual cloths with unkempt hair and so-so hygiene; mood is 'ok ; affect constricted;?Limited and somewhat avoidant eye contact; Speech is normal rate, volume and prosody; not pressured; no psychomotor retardation present; thought process organized and linear; although less intense, his thought content remains ?embroiled in concerns of being persecuted and on whether or not staff is a part of conspiracy against him; he denies AVH; but still reports he gets messages from conspirators through TV, radio, people, cellphone or email-however this has also lessened; denies SI; no HI; Patients insight and judgment are impaired, but possibly improving. Diagnostics Vital Signs (24Hr): Vital Signs - 24 hr 05/05/21 18:55 Temperature 98.7 F Pulse Rate 73 Blood Pressure 131/79 Body Mass Index 21.5 Labs Results: 05/05/21 08:04 04/28/21 10:00 Labs: Laboratory Results - last 48 hr 05/05/21 05/05/21 08:04 08:04 WBC 8.7 8.6 RBC 4.88 4.92 Hgb 14.5 14.7 Hct 42.9 43.3 MCV 87.9 88.0 MCH 29.7 29.9 MCHC 33.8 33.9 RDW 12.7 12.6 Plt Count 252 247 MPV 9.8 9.5 Immature Gran % (Auto) 0.3 0.3 Neut % (Auto) 68.1 68.4 Lymph % (Auto) 18.6 L 18.4 L [place] % (Auto) 8.7 8.8 Eos % (Auto) 3.8 3.8 Baso % (Auto) 0.5 0.3 Lymph # (Auto) 1.6 1.6 [place] # (Auto) 0.8 0.8 Eos # (Auto) 0.3 0.3 Baso # (Auto) 0.0 0.0 Abs Immat Gran (auto) 0.03 0.03 Absolute Neuts (auto) 5.9 5.9 Absolute Nucleated RBC 0.000 0.000 Nucleated RBC % (auto) 0.0 0.0 Medications Medications Current Medications Generic Name Dose Route Start Last Admin Trade Name Freq PRN Reason Stop Dose Admin Acetaminophen 650 mg 04/06/21 21:39 04/26/21 03:14 Acetaminophen 325 Mg Tablet PO 650 mg Q6H PRN Administration Headache/Pain Mild Scale (1-3) Al Hydroxide/Mg Hydroxide 30 ml 04/06/21 21:39 Magnesium Hydrox/Alum Hydrox 30 Ml Oral.Susp PO Q6H PRN Heartburn/Nausea Benztropine Mesylate 1 mg 04/28/21 17:50 Benztropine Mesylate 1 Mg Tablet PO DAILY PRN EPS Clozapine 100 mg/ Clozapine 50 150 mg 05/06/21 21:00 mg PO 05/07/21 23:59 BEDTIME FIDEL Clozapine 175 mg 05/08/21 21:00 Clozapine 25 Mg Tablet PO 05/09/21 23:59 BEDTIME FIDEL Clozapine 200 mg 05/10/21 21:00 Clozapine 100 Mg Tablet PO BEDTIME FIDEL Hydroxyzine HCl 25 mg 04/06/21 21:39 Hydroxyzine Hcl 25 Mg Tablet PO BEDTIME PRN Anxiety Magnesium Hydroxide 30 ml 04/06/21 21:39 05/03/21 12:06 Milk Of Magnesia 30 Ml Oral.Susp PO 30 ml DAILY PRN Administration Constipation Trazodone HCl 50 mg 04/06/21 21:39 Trazodone Hcl 50 Mg Tablet PO BEDTIME PRN Insomnia Allergies Allergies Allergy/AdvReac Type Severity Reaction Status Date / Time olanzapine [OLANZAPINE] Allergy Severe FACIAL Verified 04/06/21 10:20 SWELLING Assessment & Plan Assessment & Plan (1) Schizoaffective disorder: Status: Acute Code(s): F25.9 - Schizoaffective disorder, unspecified Assessment and Plan: Patient is a 35-year-old male with history of psychotic illness, recently charged from am 3 a few weeks ago who self presented to the emergency room saying that he ran to the hospital and if he had a gun he would shoot himself.? In ED patient was agitated and disorganized.? On floor patient received Haldol Ativan and Benadryl as a p.r.n. for agitation and was then calm.? Currently he does not want to talk but did agree to have his recent medications restarted. Admit patient for safety and medication management Hospital course and reasoning:very guarded on admission; 1. Started on Abilify and Prozac intermittently willing to take Abilfy, prozac. Patient started to disclose more info.? However after listening to the psychotic symptoms and mood stabilizing properties of Abilify, patient said he agrees to a trial of Abilify.? Patient reports that he was feeling suicidal prior to admission but that all SI has resolved. -initially intermittent med adherent with Abilify; denies side effects; at one point said it seemed to help with racing thoughts and depression but has since he does not think this the case. -patient suffering from persecutory delusions and subsequent depression and anxiety -some modest improvement on Abilfiy 15mg; agrees to go to 30mg (pt wants to see christine if this is a beneficial medication and does not want to wait for a slower titration; typewriter assembly and parts inspector agrees with this approach). -Abilify was increased to 30 mg and patient reports some modest improvement saying feels overall a little less stressed by his chronic worries a little more able to feel comfortable with staff; however he remains guarded. -patient has been on Abilify 30 mg for about 3 days now; at 1st it seemed there was some improvement however today he reports that he is just as tormented as ever and that medication is not effective; patient references his delusional thoughts that he is being persecuted and there is no way to avoid it. He says it does not matter what I do i'm always wrong... Patient however says he is willing to stay and try clozapine trial started on 04/22/21. 2. Started on Clozapine: -patient titrated to clozapine 200 mg adding about 50 mg per day to regimen; he agreed to stay in Abilify for now, which given patient's numerous monotherapy fails leaves 1 to consider trial of 2 antipsychotics 3. Delirium from too much Clozapine: likely due to being on prozac simultaneaously which raised clozapine levels -on apr 28 Patient presents as more disorganized than usual however he is also much more forthcoming and sharing his thoughts more freely which is significantly different from his normally guarded presentation; patient also reports what sound to be like some potential medication side effects. Clozapine is rarely the cause of EPS, dystonia or NMS. However it can cause increased salivation which may explain his intermittent leak garbled talk, and low blood pressure which could explain his dizziness. He is still on Abilify which is also overall lower risk for dystonia; his also on Prozac. Will lower his Abilify and likely discontinue; will seek advice on medication regimen and continue to monitor 04/28-Nursing informed typewriter assembly and parts inspector that patient was mumbling, seemed to be sedated, was a little shaky and diaphoretic though afebrile and hemodynamically stable; nursing also reported that he seemed to be more rigid in movements. -Hollow Handle Bench Worker examined patient who was alert and oriented to self and situation; however he did stop in mid sentence and said he needs to stop talking for now. -Focused exam revealed very mild left arm at biceps cogwheeling; no wrist rigidity/cogwheeling right arm without any rigidity or cogwheeling appreciated -Hollow Handle Bench Worker explained to patient that even though clozapine is very low risk for NMS or dystonia (pt did not take abilify this AM), it is important to rule this out and asked patient to be compliant with getting lab work done, to which he agreed. -patient reports increased salivation -NMS rulled out: All lab work negative ruling out any diagnostic markers for NMS -Hollow Handle Bench Worker discussed case with Dr. Mcleod who shared that it is possible for Prozac to elevate clozapine levels (clozapine level pending) which would account for increased disorganization, sedation, intermittent hypoteision and excessive salivation; despite complaining of rigidity, patient does not appear rigid and is walking up and down the hallways; very mild cogwheeling appreciated in left arm only -fully discontinued Abilify and fluoxetine, to which patient agreed. -held Clozapine night before and delirum resolved which was likely due to elevated levels of Clozpaine secondary to concomitant use of Fluoxetine which can raise levels (clozapine level was suprtherapeutic and explains delirum); will continue with clozapine but retitrate at slower rate. -patient is medically stable and given patient's history of refractory, severe paranoid, persecutory delusions, currently the need to treat patient's psychotic symptoms outweigh side effect risks; typewriter assembly and parts inspector and patient discussed this and pt agrees to continue with Clozapine; typewriter assembly and parts inspector discussed case with Dr. Mcleod who agrees with this plan. Ended up holding Clozapine for 2 nights and Delirum fully resovled and Clozapine restarted 4. Clozapine restarted and re-trated but at slower rate pt mildly better saying he has less racing thoughts, anxiety and depression. Still paranoid delusions. Agrees to continued titration of Clozapine. -05/06 depression and anxiety remain less bothersome; he still feels persecuted/conspired against however he feels less intruded upon by those persecuting him; still receives covert messages but they are less frequent/intrusive; ambivalent if lessening symptoms due meds or time (or persecutors); not sure if lessening of symptoms is a good thing or not. Remains without side effects how to assess Current med effect: *Pt remains guarded and frequently says he rather not discuss it... He agrees however to help typewriter assembly and parts inspector know if Abilify is helping by informing on 2 parameters: 1. is he in less overall distress (emotional) 2. is he better able to discern if typewriter assembly and parts inspector/staff is trustable (vs a part of conspiracy)/or be less confused about what to think PLAN: Continue plan as below Pt currently on CV Q 15 checks Clozapine being titrating to 200mg -C/O groin pain; med consult placed Added ibuprofen -Dc'd Abilify -dc'd prozac -benztropine 1 mg daily PRN -ANC within normal limits; checked weekly? Will seek collateral though currently pt does not want parents involved PAST PSYCH HX: (patient reports that Seroquel was most effective in the past, though he said it was for something totally different; clozapine has some similarities to Seroquel as they are both low potency; pt has had numerous other med trials with little to no effect; agrees to blood draws; typewriter assembly and parts inspector reviewed risks/side effects of Clozapine) Med trials: Rispderal: possible some benefit? pt denies Abilify Haldol: dystonia? Olanzapine - allergy (face swelling) Standard Seroquel ECT recent 2020 hospitalizations: 09/2020 [facility] 01/2021 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 confessing crimes, sectioned to the ED) -this admission, patient self presented to the emergency room saying he was suicidal with thoughts or plans to stab himself with a knife or shoot himself with a gun; patient has been very guarded during this admission though he has started to disclose what he is struggling with. Patient has had several explosive episodes on the unit, yelling/screaming loudly, with intensity, with clenched fists (of note, while this is frightening and makes staff concerned about safety, he has made no threat to others and denies any HI, intention or urges to do so). ?He is very ambivalent about taking medications with a history of non adherence (currently says the don't work, are placebo ). ?Patient has no insight at all into his psychiatric illness/psychotic symptoms. ?Given the fact that patient was suicidal on admission, remains plagued by persecutory delusions with no insight and as a result tortures himself in the community, typewriter assembly and parts inspector and team agree that patient is in imminent risk for harm to self and requires continued inpatient psychiatric treatment.? Plan was rob petition for civil commitment however patient decided to sign himself in -Medication hx: shared that only med that helped was Seroquel but he is not willing to retry since coming off it (for reasons he rather not discuss) was horrible event, causing hallucinations , not being able to tell if his mother was real, insominia for 4 days straight...He does not want any medication that is sedating since he feels need to be alert and focused. Greater than 50% of the session was spent on counseling and/or coordination of care Reason for contiued inpatient stay Substantial Risk for: rapid decompensation
[2021-05-06 09:45] VITALS: BP 122/75; RESP 99
[2021-05-06] MEDS: Ibuprofen 600 MG TABLET PO ×2 (12:37→18:46)
--- NOTE | 2021-05-06 14:21 | HO.PM.IMCN ---
History of Present Illness Data of Consult Service Date: 05/06/21 Primary Care Provider: Unknown Physician HPI Reason for consult: right groin pain 35 year old mal with no medical history presetnly admitted to inpatient Psych for Psychosis, he reports right groing pain, associated with walking for a few days, swelling, no bulging in the area. There is relief with APAP. Psychosis seems emma Review of Systems Review of Systems: Gen: no fever Resp: no sob, no cough CV: no chest, no EMERSON, no leg edema GI: No n/v, no abd pain Neuro: No confusion right groin pain Yes all other systems are reviewed and are negative [facility] Medical History Schizoaffective disorder Social History Household Members: None Household Members Other:: 0 Housing: Apartment Do you presently have visiting nurse or other home services: No Unable to assess alcohol history related to: Unknown Patient Tobacco Use Status: Former Tobacco user Quit Date: Unknown Tobacco use type: Cigarette Smoked in Last 30 Days: No e-Cigarette/Vaping Use: Never Used Patient Interested in Nicotine Replacement: No Patient Given Instructions on How to Stop Smoking: No Second Hand Smoke Exposure: No Use of substances other than those prescribed or required for medical reasons: No Substance Use Type: Marijuana Currently Displaying Signs/Symptoms of Drug Intoxication Withdrawal: No Any prior treatment program specific to substance use: No Have you been hit, kicked, punched, or otherwise hurt by someone within the past year? If so, by whom?: No Do you feel safe in your current relationship?: No Current Relationship Is there a partner from a previous relationship who is making you feel unsafe now?: No Are you made to feel afraid or neglected: No Advance Directives: Yes Advance Directives Information Provided: Yes Advance Directives on File: No Healthcare Proxy: No Guardian: No Do you have thoughts of harming others: None Do you have a plan to hurt others: No Plan Recently lost weight without trying: Unsure How much weight loss: Unsure Eating poorly because of decreased appetite: No Nutrition screen score: 4 Nutrition Risks: No Nutritional Risk Poor oral hygiene: No service: No Sexual orientation: did not discuss. Meds Allergies Allergy/AdvReac Type Severity Reaction Status Date / Time olanzapine [OLANZAPINE] Allergy Severe FACIAL Verified 04/06/21 10:20 SWELLING Active Medications: Current Medications Generic Name Dose Route Start Last Admin Trade Name Freq PRN Reason Stop Dose Admin Acetaminophen 650 mg 04/06/21 21:39 04/26/21 03:14 Acetaminophen 325 Mg Tablet PO 650 mg Q6H PRN Administration Headache/Pain Mild Scale (1-3) Al Hydroxide/Mg Hydroxide 30 ml 04/06/21 21:39 Magnesium Hydrox/Alum Hydrox 30 Ml Oral.Susp PO Q6H PRN Heartburn/Nausea Benztropine Mesylate 1 mg 04/28/21 17:50 Benztropine Mesylate 1 Mg Tablet PO DAILY PRN EPS Clozapine 100 mg/ Clozapine 50 150 mg 05/06/21 21:00 mg PO 05/07/21 23:59 BEDTIME FIDEL Clozapine 175 mg 05/08/21 21:00 Clozapine 25 Mg Tablet PO 05/09/21 23:59 BEDTIME FIDEL Clozapine 200 mg 05/10/21 21:00 Clozapine 100 Mg Tablet PO BEDTIME FIDEL Hydroxyzine HCl 25 mg 04/06/21 21:39 Hydroxyzine Hcl 25 Mg Tablet PO BEDTIME PRN Anxiety Ibuprofen 600 mg 05/06/21 09:40 05/06/21 12:37 Ibuprofen 600 Mg Tablet PO 600 mg Q6H PRN Administration pain/headache Magnesium Hydroxide 30 ml 04/06/21 21:39 05/03/21 12:06 Milk Of Magnesia 30 Ml Oral.Susp PO 30 ml DAILY PRN Administration Constipation Trazodone HCl 50 mg 04/06/21 21:39 Trazodone Hcl 50 Mg Tablet PO BEDTIME PRN Insomnia Home Medications Medication Instructions Recorded Confirmed Last Taken Type aripiprazole 10 mg tablet 1 tab PO DAILY 03/15/21 04/06/21 03/21/21 08:00 History benztropine 1 mg tablet 1 tab PO BEDTIME 03/15/21 04/06/21 03/20/21 20:00 History fluoxetine 20 mg capsule 3 cap PO DAILY 03/15/21 04/06/21 03/21/21 08:00 History haloperidol 5 mg tablet 1 tab PO BEDTIME 03/15/21 04/06/21 03/20/21 20:00 History Physical Exam Vital Signs and Narrative: Vital Signs: Last Vital Signs Temp 98.7 F 05/05/21 18:55 Pulse 73 05/05/21 18:55 Resp 99 H 05/06/21 09:45 BP 122/75 05/06/21 09:45 Pulse Ox 94 05/05/21 06:00 Body Mass Index 21.5 Constitutional Awake and Alert, No apparent distress HEEENT--Anicteric Neck Supple, No lymphadenopathy Cardiovascular RRR, No M/R/G, S1 S2, No S3 S4, No pedal edema Respiratory Lungs clear, No respiratory distress Gastrointestinal Non tender, Non-distended : no hernia in groin, no mass Skin No rash Neurological Alert & oriented x3 Psychological Appropriate affect Results Labs CBC and Chem 7: 05/05/21 08:04 04/28/21 10:00 Assessment and Plan (1) Suicidal ideation: Status: Acute (2) Schizoaffective disorder: Status: Acute 35/M with psychosis, suicidality and some groin pain plan groin pain sounds like pull muslce and can be treated with APAP or Motrin and if not improving we can image Continue Psych mangement.
[2021-05-06 16:10] VITALS: BP 117/69; PULSE 69; TEMP 36.8
[2021-05-06] MEDS: cloZAPine 100 MG, cloZAPine 50 MG 150 MG PO (19:51)
[2021-05-07 06:00] VITALS: BP 107/67; PULSE 76; RESP 16; TEMP 36.5; O2SAT 94
[2021-05-07] MEDS: Ibuprofen 600 MG TABLET PO ×3 (09:22→22:33)
--- NOTE | 2021-05-07 13:36 | HO.PSYCHPN ---
Subjective Subjective Date of Service: 05/07/21 Reason For Visit: Psychosis Interim History: has been flat and withdrawn. Today with casualty underwriter reports feeling better than he did when he came in. Reported anxiety is less. Feels okay with Clozaril. Feels well cared for in safe. Denies SI. When asked about paranoia pre-admission, became guarded and stated he did not want to talk about that. Groin pain manageable and consult pending. Medication Compliance: Yes Side effects from medications: No Review of Systems Acute medical concerns: No Review of Systems Review of Systems No changes Diagnostics Vital Signs (24Hr): Vital Signs - 24 hr 05/06/21 16:10 05/07/21 06:00 Temperature 98.2 F 97.7 F Pulse Rate 69 76 Respiratory Rate 16 Blood Pressure 117/69 107/67 Pulse Oximetry 94 Body Mass Index 21.5 Labs Results: 05/05/21 08:04 04/28/21 10:00 Medications Medications Current Medications Generic Name Dose Route Start Last Admin Trade Name Freq PRN Reason Stop Dose Admin Acetaminophen 650 mg 04/06/21 21:39 04/26/21 03:14 Acetaminophen 325 Mg Tablet PO 650 mg Q6H PRN Administration Headache/Pain Mild Scale (1-3) Al Hydroxide/Mg Hydroxide 30 ml 04/06/21 21:39 Magnesium Hydrox/Alum Hydrox 30 Ml Oral.Susp PO Q6H PRN Heartburn/Nausea Benztropine Mesylate 1 mg 04/28/21 17:50 Benztropine Mesylate 1 Mg Tablet PO DAILY PRN EPS Clozapine 100 mg/ Clozapine 50 150 mg 05/06/21 21:00 05/06/21 19:51 mg PO 05/07/21 23:59 150 mg BEDTIME FIDEL Administration Clozapine 175 mg 05/08/21 21:00 Clozapine 25 Mg Tablet PO 05/09/21 23:59 BEDTIME FIDEL Clozapine 200 mg 05/10/21 21:00 Clozapine 100 Mg Tablet PO BEDTIME FIDEL Hydroxyzine HCl 25 mg 04/06/21 21:39 Hydroxyzine Hcl 25 Mg Tablet PO BEDTIME PRN Anxiety Ibuprofen 600 mg 05/06/21 09:40 05/07/21 09:22 Ibuprofen 600 Mg Tablet PO 600 mg Q6H PRN Administration pain/headache Magnesium Hydroxide 30 ml 04/06/21 21:39 05/03/21 12:06 Milk Of Magnesia 30 Ml Oral.Susp PO 30 ml DAILY PRN Administration Constipation Trazodone HCl 50 mg 04/06/21 21:39 Trazodone Hcl 50 Mg Tablet PO BEDTIME PRN Insomnia Allergies Allergies Allergy/AdvReac Type Severity Reaction Status Date / Time olanzapine [OLANZAPINE] Allergy Severe FACIAL Verified 04/06/21 10:20 SWELLING Assessment & Plan Assessment & Plan (1) Suicidal ideation: Status: Acute Code(s): R45.851 - Suicidal ideations (2) Schizoaffective disorder: Status: Acute Code(s): F25.9 - Schizoaffective disorder, unspecified Assessment and Plan: 35/M with psychosis, suicidality and some groin pain plan groin pain sounds like pull muslce and can be treated with APAP or Motrin and if not improving we can image Continue Psych mangement. 05/07/2021: No changes to primary team treatment plan. Consult pending around groin pain and Clozaril titration in place Greater than 50% of the session was spent on counseling and/or coordination of care Reason for contiued inpatient stay Substantial Risk for: rapid decompensation
[2021-05-07 18:00] VITALS: BP 122/68; PULSE 72; RESP 16; TEMP 36.3
[2021-05-07] MEDS: cloZAPine 100 MG, cloZAPine 50 MG 150 MG PO (22:33)
[2021-05-08 06:00] VITALS: BP 101/57; PULSE 72; RESP 16; TEMP 36.4; O2SAT 95
[2021-05-08] MEDS: Ibuprofen 600 MG TABLET PO ×2 (09:19→15:42)
--- NOTE | 2021-05-08 12:55 | HO.PSYCHPN ---
Subjective Subjective Date of Service: 05/08/21 Reason For Visit: Psychosis Interim History: Overall Reports feeling okay. Mood slightly improved. Psychosis improving. Feels the medications are helpful. Sleep energy and appetite okay. Discussed family visits and he reports being ambivalent about those and having some positives as well as some concerns. Did not want to elaborate on concerns. Medication Compliance: Yes Side effects from medications: No Review of Systems Acute medical concerns: No Mental Status Exam Mental Status Exam Narrative: Seen in room. Casually dressed. Fair hygiene. Organized. Restricted affect. Minimal answers. Denies SI or HI. Denies psychosis. Insight and judgment fair Diagnostics Vital Signs (24Hr): Vital Signs - 24 hr 05/07/21 18:00 05/08/21 06:00 Temperature 97.4 F 97.6 F Pulse Rate 72 72 Respiratory Rate 16 16 Blood Pressure 122/68 101/57 L Pulse Oximetry 95 Body Mass Index 21.5 Labs Results: 05/05/21 08:04 04/28/21 10:00 Medications Medications Current Medications Generic Name Dose Route Start Last Admin Trade Name Freq PRN Reason Stop Dose Admin Acetaminophen 650 mg 04/06/21 21:39 04/26/21 03:14 Acetaminophen 325 Mg Tablet PO 650 mg Q6H PRN Administration Headache/Pain Mild Scale (1-3) Al Hydroxide/Mg Hydroxide 30 ml 04/06/21 21:39 Magnesium Hydrox/Alum Hydrox 30 Ml Oral.Susp PO Q6H PRN Heartburn/Nausea Benztropine Mesylate 1 mg 04/28/21 17:50 Benztropine Mesylate 1 Mg Tablet PO DAILY PRN EPS Clozapine 175 mg 05/08/21 21:00 Clozapine 25 Mg Tablet PO 05/09/21 23:59 BEDTIME FIDEL Clozapine 200 mg 05/10/21 21:00 Clozapine 100 Mg Tablet PO BEDTIME FIDEL Hydroxyzine HCl 25 mg 04/06/21 21:39 Hydroxyzine Hcl 25 Mg Tablet PO BEDTIME PRN Anxiety Ibuprofen 600 mg 05/06/21 09:40 05/08/21 09:19 Ibuprofen 600 Mg Tablet PO 600 mg Q6H PRN Administration pain/headache Magnesium Hydroxide 30 ml 04/06/21 21:39 05/03/21 12:06 Milk Of Magnesia 30 Ml Oral.Susp PO 30 ml DAILY PRN Administration Constipation Trazodone HCl 50 mg 04/06/21 21:39 Trazodone Hcl 50 Mg Tablet PO BEDTIME PRN Insomnia Allergies Allergies Allergy/AdvReac Type Severity Reaction Status Date / Time olanzapine [OLANZAPINE] Allergy Severe FACIAL Verified 04/06/21 10:20 SWELLING Assessment & Plan Assessment & Plan (1) Suicidal ideation: Status: Acute Code(s): R45.851 - Suicidal ideations (2) Schizoaffective disorder: Status: Acute Code(s): F25.9 - Schizoaffective disorder, unspecified Assessment and Plan: 35/M with psychosis, suicidality and some groin pain plan groin pain sounds like pull muslce and can be treated with APAP or Motrin and if not improving we can image Continue Psych mangement. 05/08/2021: No changes to primary team treatment plan. Consult pending around groin pain and Clozaril titration in place Greater than 50% of the session was spent on counseling and/or coordination of care Reason for contiued inpatient stay Substantial Risk for: inability to function
[2021-05-08 17:51] VITALS: BP 121/74; PULSE 88; TEMP 36.9; O2SAT 96
[2021-05-08] MEDS: Magnesium Hydrox/Alum Hydrox 30 ML ORAL.SUSP PO (18:06)
[2021-05-08] MEDS: cloZAPine 25 MG TABLET 175 MG PO (20:18)
[2021-05-09 06:00] VITALS: BP 109/72; PULSE 76; RESP 16; TEMP 36.1; O2SAT 95
[2021-05-09] MEDS: Ibuprofen 600 MG TABLET PO ×3 (06:28→18:43)
--- NOTE | 2021-05-09 11:59 | HO.PSYCHPN ---
Subjective Subjective Date of Service: 05/09/21 Reason For Visit: Psychosis Interim History: Overall Reports feeling okay. Mood slightly improved and looking forward to parent visit today. Psychosis improving. Feels the medications are helpful. Sleep energy and appetite okay. Is constipated Review of Systems Review of Systems constipation Mental Status Exam Mental Status Exam Narrative: ?Seen in room.? Casually dressed.? Fair hygiene.? Organized.? Restricted affect.? Minimal answers.? Denies SI or HI.? Denies psychosis.? Insight and judgment fair Diagnostics Vital Signs (24Hr): Vital Signs - 24 hr 05/08/21 17:51 05/09/21 06:00 Temperature 98.5 F 96.9 F Pulse Rate 88 76 Respiratory Rate 16 Blood Pressure 121/74 109/72 Pulse Oximetry 96 95 Body Mass Index 21.5 Labs Results: 05/05/21 08:04 04/28/21 10:00 Medications Medications Current Medications Generic Name Dose Route Start Last Admin Trade Name Freq PRN Reason Stop Dose Admin Acetaminophen 650 mg 04/06/21 21:39 04/26/21 03:14 Acetaminophen 325 Mg Tablet PO 650 mg Q6H PRN Administration Headache/Pain Mild Scale (1-3) Al Hydroxide/Mg Hydroxide 30 ml 04/06/21 21:39 05/08/21 18:06 Magnesium Hydrox/Alum Hydrox 30 Ml Oral.Susp PO 30 ml Q6H PRN Administration Heartburn/Nausea Benztropine Mesylate 1 mg 04/28/21 17:50 Benztropine Mesylate 1 Mg Tablet PO DAILY PRN EPS Clozapine 175 mg 05/08/21 21:00 05/08/21 20:18 Clozapine 25 Mg Tablet PO 05/09/21 23:59 175 mg BEDTIME FIDEL Administration Clozapine 200 mg 05/10/21 21:00 Clozapine 100 Mg Tablet PO BEDTIME FIDEL Hydroxyzine HCl 25 mg 04/06/21 21:39 Hydroxyzine Hcl 25 Mg Tablet PO BEDTIME PRN Anxiety Ibuprofen 600 mg 05/06/21 09:40 05/09/21 06:28 Ibuprofen 600 Mg Tablet PO 600 mg Q6H PRN Administration pain/headache Magnesium Hydroxide 30 ml 04/06/21 21:39 05/03/21 12:06 Milk Of Magnesia 30 Ml Oral.Susp PO 30 ml DAILY PRN Administration Constipation Trazodone HCl 50 mg 04/06/21 21:39 Trazodone Hcl 50 Mg Tablet PO BEDTIME PRN Insomnia Allergies Allergies Allergy/AdvReac Type Severity Reaction Status Date / Time olanzapine [OLANZAPINE] Allergy Severe FACIAL Verified 04/06/21 10:20 SWELLING Assessment & Plan Assessment & Plan (1) Suicidal ideation: Status: Acute Code(s): R45.851 - Suicidal ideations (2) Schizoaffective disorder: Status: Acute Code(s): F25.9 - Schizoaffective disorder, unspecified Assessment and Plan: 35/M with psychosis, suicidality and some groin pain plan groin pain sounds like pull muslce and can be treated with APAP or Motrin and if not improving we can image Continue Psych mangement. 05/09/2021: No changes to primary team treatment plan. Consult pending around groin pain and Clozaril titration in place Greater than 50% of the session was spent on counseling and/or coordination of care Reason for contiued inpatient stay Substantial Risk for: inability to function
[2021-05-09] MEDS: Magnesium Citrate 300 ML SOLUTION PO (12:13)
[2021-05-09 18:00] VITALS: BP 105/61; PULSE 83; TEMP 36.7
[2021-05-09] MEDS: cloZAPine 25 MG TABLET 175 MG PO (20:15)
[2021-05-10 06:00] VITALS: BP 96/61; PULSE 108; RESP 17; TEMP 36.3; O2SAT 94
[2021-05-10] MEDS: Ibuprofen 600 MG TABLET PO ×2 (09:00→16:00)
--- NOTE | 2021-05-10 16:53 | P.PNPSI_ITS ---
Subjective Subjective Date of Service: 05/10/21 Reason For Visit: Psychosis Interim History: met with patient no change in presentation Mental Status Exam Mental Status Exam Narrative: No change to metnal staus: pt is alert and oriented to self, time, and situation (though does not think he has mental illness); casually groomed,? adequate hygiene; behavior is mildly guarded, though calm; minimal eye contact; mood is fine and affect is constricted; thought process is goal oriented; thought content is on [place]; otherwise guarded but alluding to continued perseveration on paranoid, persecutory delusions about being tortured; denies SI though typically intermittent SI as fulfillment of task assigned to him by persecutors; patient believes he receives messages through various avenues, having thoughts implanted in his head or communications given through media. Denies [facility]. ?Patients insight and judgment are impaired Diagnostics Vital Signs (24Hr): Vital Signs - 24 hr 05/09/21 18:00 05/10/21 06:00 Temperature 98.1 F 97.3 F Pulse Rate 83 108 H Respiratory Rate 17 Blood Pressure 105/61 96/61 Pulse Oximetry 94 Body Mass Index 21.5 Labs 05/12/21 07:54 04/28/21 10:00 Medications Medications Current Medications Generic Name Dose Route Start Last Admin Trade Name Freq PRN Reason Stop Dose Admin Acetaminophen 650 mg 04/06/21 21:39 04/26/21 03:14 Acetaminophen 325 Mg Tablet PO 650 mg Q6H PRN Administration Headache/Pain Mild Scale (1-3) Al Hydroxide/Mg Hydroxide 30 ml 04/06/21 21:39 05/08/21 18:06 Magnesium Hydrox/Alum Hydrox 30 Ml Oral.Susp PO 30 ml Q6H PRN Administration Heartburn/Nausea Benztropine Mesylate 1 mg 04/28/21 17:50 Benztropine Mesylate 1 Mg Tablet PO DAILY PRN EPS Clozapine 200 mg 05/10/21 21:00 Clozapine 100 Mg Tablet PO BEDTIME FIDEL Hydroxyzine HCl 25 mg 04/06/21 21:39 Hydroxyzine Hcl 25 Mg Tablet PO BEDTIME PRN Anxiety Ibuprofen 600 mg 05/06/21 09:40 05/10/21 16:00 Ibuprofen 600 Mg Tablet PO 600 mg Q6H PRN Administration pain/headache Magnesium Hydroxide 30 ml 04/06/21 21:39 05/03/21 12:06 Milk Of Magnesia 30 Ml Oral.Susp PO 30 ml DAILY PRN Administration Constipation Trazodone HCl 50 mg 04/06/21 21:39 Trazodone Hcl 50 Mg Tablet PO BEDTIME PRN Insomnia Allergies Allergies Allergy/AdvReac Type Severity Reaction Status Date / Time olanzapine [OLANZAPINE] Allergy Severe FACIAL Verified 04/06/21 10:20 SWELLING Assessment & Plan Assessment & Plan (1) Suicidal ideation: Status: Resolved Code(s): R45.851 - Suicidal ideations (2) Schizoaffective disorder: Status: Chronic Code(s): F25.9 - Schizoaffective disorder, unspecified Plan Patient is a 35-year-old male with history of psychotic illness, recently charged from [facility] a few weeks ago who self presented to the emergency room saying that he ran to the hospital and if he had a gun he would shoot himself.? In ED patient was agitated and disorganized.? On floor patient received Haldol Ativan and Benadryl as a p.r.n. for agitation and was then calm.? Currently he does not want to talk but did agree to have his recent medications restarted. Admit patient for safety and medication management Hospital course and reasoning:very guarded on admission; ?1.?Started on Abilify and Prozac intermittently willing to take Abilfy, prozac. Patient started to disclose more info.? However after listening to the psychotic symptoms and mood stabilizing properties of Abilify, patient said he agrees to a trial of Abilify.? Patient reports that he was feeling suicidal prior to admission but that all SI has resolved. -initially intermittent med adherent with Abilify; denies side effects; at one point said it seemed to help with racing thoughts and depression but has since he does not think this the case. -patient suffering from persecutory delusions and subsequent depression and anxiety -some modest improvement on Abilfiy 15mg; agrees to go to 30mg (pt wants to see christine if this is a beneficial medication and does not want to wait for a slower titration; typewriter aligner agrees with this approach). -Abilify was increased to 30 mg and patient reports some modest improvement saying feels overall a little less stressed by his chronic worries a little more able to feel comfortable with staff; however he remains guarded. -patient has been on Abilify 30 mg for about 3 days now; at 1st it seemed there was some improvement however today he reports that he is just as tormented as ever and that medication is not effective; patient references his delusional thoughts that he is being persecuted and there is no way to avoid it.? He says it does not matter what I do i'm always wrong... Patient however says he is willing to stay and try clozapine trial started on 04/22/21. 2.?Started on Clozapine: -patient titrated to clozapine 200 mg adding about 50 mg per day to regimen; he agreed to stay in [facility] for now, which given patient's numerous monotherapy fails leaves 1 to consider trial of 2 antipsychotics 3.?Delirium from too much Clozapine:?likely due to being on prozac simultaneaously which raised clozapine levels -on apr 28 Patient presents as more disorganized than usual however he is also much more forthcoming and sharing his thoughts more freely which is significantly different from his normally guarded presentation; patient also reports what sound to be like some potential medication side effects.? Clozapine is rarely the cause of EPS, dystonia or NMS.? However it can cause increased salivation which may explain his intermittent leak garbled talk, and low blood pressure which could explain his dizziness.? He is still on Abilify which is also overall lower risk for dystonia; his also on Prozac.? Will lower his Abilify and likely discontinue; will seek advice on medication regimen and continue to monitor 04/28-Nursing informed typewriter aligner that patient was mumbling, seemed to be sedated, was a little shaky and diaphoretic though afebrile and hemodynamically stable; nursing also reported that he seemed to be more rigid in movements. -Senior Business Consultant examined patient who was alert and oriented to self and situation; however he did stop in mid sentence and said he needs to stop talking for now. -Focused exam revealed very mild left arm at biceps cogwheeling; no wrist rigidity/cogwheeling right arm without any rigidity or cogwheeling appreciated -Senior Business Consultant explained to patient that even though clozapine is very low risk for NMS or dystonia (pt did not take abilify this AM), it is important to rule this out and asked patient to be compliant with getting lab work done, to which he agreed. -patient reports increased salivation -NMS rulled out: All lab work negative ruling out any diagnostic markers for NMS -Senior Business Consultant discussed case with Dr. Mcleod who shared that it is possible for Prozac to elevate clozapine levels (clozapine level pending) which would account for? increased disorganization, sedation, intermittent hypoteision and excessive salivation; despite complaining of rigidity, patient does not appear rigid and is walking up and down the hallways; very mild cogwheeling appreciated in left arm only -fully discontinued Abilify and fluoxetine, to which patient agreed. -held Clozapine night before and delirum resolved which was likely due to elevated levels of Clozpaine secondary to concomitant use of Fluoxetine which can raise levels (clozapine level was suprtherapeutic and explains delirum); will continue with clozapine but retitrate at slower rate. -patient is medically stable and given patient's history of refractory, severe paranoid, persecutory delusions, currently the need to treat patient's psychotic symptoms outweigh side effect risks; typewriter aligner and patient discussed this and pt agrees to continue with Clozapine; typewriter aligner discussed case with Dr. Mcleod who agrees with this plan. Ended up holding Clozapine for 2 nights and Delirum fully resovled and Clozapine restarted 4.?Clozapine restarted and re-titrated but at slower rate ? Again on Clozapine, pt reported feeling better saying he has less racing thoughts, anxiety and depression. Still paranoid delusions. Agrees to continued titration of Clozapine. depression and anxiety remain less bothersome; he still feels persecuted/conspired against however he feels less intruded upon by those persecuting him; still receives covert messages but they are less frequent/intrusive; ambivalent if lessening symptoms due meds or time (or persecutors); not sure if lessening of symptoms is a good thing or not.? Remains without side effects.? Patient remains without any SI or HI .? Though mostly keeping to himself and guarded with disclosures he has been open with typewriter aligner about his symptoms and demonstrated consistent appropriate behavior and impulse control on the unit.? CBC labs were drawn weekly and remained within normal limits and he tolerates clozapine well, even at 200 mg q.h.s., reporting absence of all side effects. On clozapine, patient has consistently reported that his anxiety and depression were much improved.? Although he continues to struggle with paranoid delusions he continually says he is overall less stressed by them.? And while he continues to receive messages from conspirators, he says it's happening much less often.? Senior Business Consultant and patient discussed discharge and patient said he felt safe, stable and ready to work on treatment as an outpatient with both his prescriber and Therapist.? He feels he can commit to taking the medication for at least 3 months and will try to self-assess and keep a log recording his mood, burden and stress level, hoping to get a better idea of whether the medication remains effective. Senior Business Consultant discussed and patient understood risks of clozapine as well as the continued need to get blood draws once a week to which he agrees.? Patient is not in imminent risk for harm to self or others and does not rise to the level of involuntary commitment. His request for discharge is honored and planned for this . PLAN: Continue plan as below Pt currently on CV Q 15 checks Clozapine 200mg Greater than 50% of the session was spent on counseling and/or coordination of care Patient educated on: diagnosis Informed Consent: understands, does not understand and further education needed Reason for contiued inpatient stay Substantial Risk for: stable for discharge
[2021-05-10 17:01] VITALS: BP 113/70; PULSE 110; TEMP 36.9; O2SAT 98
[2021-05-10] MEDS: Milk of Magnesia 30 ML ORAL.SUSP PO (17:07)
[2021-05-10] MEDS: cloZAPine 100 MG TABLET 200 MG PO (21:02)
[2021-05-11 06:00] VITALS: BP 122/81; PULSE 94; TEMP 35.8; O2SAT 95
[2021-05-11] MEDS: Ibuprofen 600 MG TABLET PO ×3 (06:40→19:04)
--- NOTE | 2021-05-11 10:58 | P.PNPSI_ITS ---
Subjective Subjective Date of Service: 05/11/21 Reason For Visit: Psychosis Interim History: No change in presentation Mental Status Exam Mental Status Exam Narrative: No change to metnal staus: pt is alert and oriented to self, time, and situation (though does not think he has mental illness); casually groomed,? adequate hygiene; behavior is mildly guarded, though calm; minimal eye contact; mood is fine and affect is constricted; thought process is goal oriented; thought content is on Vibra; otherwise guarded but alluding to continued perseveration on paranoid, persecutory delusions about being tortured; denies SI though typically intermittent SI as fulfillment of task assigned to him by persecutors; patient believes he receives messages through various avenues, having thoughts implanted in his head or communications given through media. Denies [facility]. ?Patients insight and judgment are impaired Diagnostics Vital Signs (24Hr): Vital Signs - 24 hr 05/10/21 17:01 05/11/21 06:00 Temperature 98.5 F 96.4 F L Pulse Rate 110 H 94 Blood Pressure 113/70 122/81 Pulse Oximetry 98 95 Body Mass Index 21.5 Labs 05/12/21 07:54 04/28/21 10:00 Medications Medications Current Medications Generic Name Dose Route Start Last Admin Trade Name Freq PRN Reason Stop Dose Admin Acetaminophen 650 mg 04/06/21 21:39 04/26/21 03:14 Acetaminophen 325 Mg Tablet PO 650 mg Q6H PRN Administration Headache/Pain Mild Scale (1-3) Al Hydroxide/Mg Hydroxide 30 ml 04/06/21 21:39 05/08/21 18:06 Magnesium Hydrox/Alum Hydrox 30 Ml Oral.Susp PO 30 ml Q6H PRN Administration Heartburn/Nausea Benztropine Mesylate 1 mg 04/28/21 17:50 Benztropine Mesylate 1 Mg Tablet PO DAILY PRN EPS Clozapine 200 mg 05/10/21 21:00 05/10/21 21:02 Clozapine 100 Mg Tablet PO 200 mg BEDTIME FIDEL Administration Hydroxyzine HCl 25 mg 04/06/21 21:39 Hydroxyzine Hcl 25 Mg Tablet PO BEDTIME PRN Anxiety Ibuprofen 600 mg 05/06/21 09:40 05/11/21 06:40 Ibuprofen 600 Mg Tablet PO 600 mg Q6H PRN Administration pain/headache Magnesium Hydroxide 30 ml 04/06/21 21:39 05/10/21 17:07 Milk Of Magnesia 30 Ml Oral.Susp PO 30 ml DAILY PRN Administration Constipation Trazodone HCl 50 mg 04/06/21 21:39 Trazodone Hcl 50 Mg Tablet PO BEDTIME PRN Insomnia Allergies Allergies Allergy/AdvReac Type Severity Reaction Status Date / Time olanzapine [OLANZAPINE] Allergy Severe FACIAL Verified 04/06/21 10:20 SWELLING Assessment & Plan Assessment & Plan (1) Suicidal ideation: Status: Resolved Code(s): R45.851 - Suicidal ideations (2) Schizoaffective disorder: Status: Chronic Code(s): F25.9 - Schizoaffective disorder, unspecified Plan Patient is a 35-year-old male with history of psychotic illness, recently charged from [facility] a few weeks ago who self presented to the emergency room saying that he ran to the hospital and if he had a gun he would shoot himself.? In ED patient was agitated and disorganized.? On floor patient received Haldol Ativan and Benadryl as a p.r.n. for agitation and was then calm.? Currently he does not want to talk but did agree to have his recent medications restarted. Admit patient for safety and medication management Hospital course and reasoning:very guarded on admission; ?1.?Started on Abilify and Prozac intermittently willing to take Abilfy, prozac. Patient started to disclose more info.? However after listening to the psychotic symptoms and mood stabilizing properties of Abilify, patient said he agrees to a trial of Abilify.? Patient reports that he was feeling suicidal prior to admission but that all SI has resolved. -initially intermittent med adherent with Abilify; denies side effects; at one point said it seemed to help with racing thoughts and depression but has since he does not think this the case. -patient suffering from persecutory delusions and subsequent depression and anxiety -some modest improvement on Abilfiy 15mg; agrees to go to 30mg (pt wants to see christine if this is a beneficial medication and does not want to wait for a slower titration; parts data writer agrees with this approach). -Abilify was increased to 30 mg and patient reports some modest improvement saying feels overall a little less stressed by his chronic worries a little more able to feel comfortable with staff; however he remains guarded. -patient has been on Abilify 30 mg for about 3 days now; at 1st it seemed there was some improvement however today he reports that he is just as tormented as ever and that medication is not effective; patient references his delusional thoughts that he is being persecuted and there is no way to avoid it.? He says it does not matter what I do i'm always wrong... Patient however says he is willing to stay and try clozapine trial started on 04/22/21. 2.?Started on Clozapine: -patient titrated to clozapine 200 mg adding about 50 mg per day to regimen; he agreed to stay in Abilif for now, which given patient's numerous monotherapy fails leaves 1 to consider trial of 2 antipsychotics 3.?Delirium from too much Clozapine:?likely due to being on prozac simultaneaously which raised clozapine levels -on apr 28 Patient presents as more disorganized than usual however he is also much more forthcoming and sharing his thoughts more freely which is significantly different from his normally guarded presentation; patient also reports what sound to be like some potential medication side effects.? Clozapine is rarely the cause of EPS, dystonia or NMS.? However it can cause increased salivation which may explain his intermittent leak garbled talk, and low blood pressure which could explain his dizziness.? He is still on Abilify which is also overall lower risk for dystonia; his also on Prozac.? Will lower his Abilify and likely discontinue; will seek advice on medication regimen and continue to monitor 04/28-Nursing informed parts data writer that patient was mumbling, seemed to be sedated, was a little shaky and diaphoretic though afebrile and hemodynamically stable; nursing also reported that he seemed to be more rigid in movements. -Therapist'S Assistant examined patient who was alert and oriented to self and situation; however he did stop in mid sentence and said he needs to stop talking for now. -Focused exam revealed very mild left arm at biceps cogwheeling; no wrist rigidity/cogwheeling right arm without any rigidity or cogwheeling appreciated -Therapist'S Assistant explained to patient that even though clozapine is very low risk for NMS or dystonia (pt did not take abilify this AM), it is important to rule this out and asked patient to be compliant with getting lab work done, to which he agreed. -patient reports increased salivation -NMS rulled out: All lab work negative ruling out any diagnostic markers for NMS -Therapist'S Assistant discussed case with Dr. Mcleod who shared that it is possible for Prozac to elevate clozapine levels (clozapine level pending) which would account for? increased disorganization, sedation, intermittent hypoteision and excessive salivation; despite complaining of rigidity, patient does not appear rigid and is walking up and down the hallways; very mild cogwheeling appreciated in left arm only -fully discontinued Abilify and fluoxetine, to which patient agreed. -held Clozapine night before and delirum resolved which was likely due to elevated levels of Clozpaine secondary to concomitant use of Fluoxetine which can raise levels (clozapine level was suprtherapeutic and explains delirum); will continue with clozapine but retitrate at slower rate. -patient is medically stable and given patient's history of refractory, severe paranoid, persecutory delusions, currently the need to treat patient's psychotic symptoms outweigh side effect risks; parts data writer and patient discussed this and pt agrees to continue with Clozapine; parts data writer discussed case with Dr. Mcleod who agrees with this plan. Ended up holding Clozapine for 2 nights and Delirum fully resovled and Clozapine restarted 4.?Clozapine restarted and re-titrated but at slower rate ? Again on Clozapine, pt reported feeling better saying he has less racing thoughts, anxiety and depression. Still paranoid delusions. Agrees to continued titration of Clozapine. depression and anxiety remain less bothersome; he still feels persecuted/conspired against however he feels less intruded upon by those persecuting him; still receives covert messages but they are less frequent/intrusive; ambivalent if lessening symptoms due meds or time (or persecutors); not sure if lessening of symptoms is a good thing or not.? Remains without side effects.? Patient remains without any SI or HI .? Though mostly keeping to himself and guarded with disclosures he has been open with parts data writer about his symptoms and demonstrated consistent appropriate behavior and impulse control on the unit.? CBC labs were drawn weekly and remained within normal limits and he tolerates clozapine well, even at 200 mg q.h.s., reporting absence of all side effects. On clozapine, patient has consistently reported that his anxiety and depression were much improved.? Although he continues to struggle with paranoid delusions he continually says he is overall less stressed by them.? And while he continues to receive messages from conspirators, he says it's happening much less often.? Therapist'S Assistant and patient discussed discharge and patient said he felt safe, stable and ready to work on treatment as an outpatient with both his prescriber and Therapist.? He feels he can commit to taking the medication for at least 3 months and will try to self-assess and keep a log recording his mood, burden and stress level, hoping to get a better idea of whether the medication remains effective. Therapist'S Assistant discussed and patient understood risks of clozapine as well as the continued need to get blood draws once a week to which he agrees.? Patient is not in imminent risk for harm to self or others and does not rise to the level of involuntary commitment. His request for discharge is honored and planned for this . PLAN: Continue plan as below Pt currently on CV Q 15 checks Clozapine 200mg -Dc'd Abilify -dc'd prozac -benztropine 1 mg daily PRN -ANC within normal limits; checked weekly? Greater than 50% of the session was spent on counseling and/or coordination of care Reason for contiued inpatient stay Substantial Risk for: stable for discharge
--- NOTE | 2021-05-11 13:43 | PM.PSYDC ---
DS: Providers Provider Date of Service: 05/12/21 Date of admission: 04/06/21 21:38 Date of discharge: 05/12/21 Primary care physician: Unknown Physician Attending physician on admission: Maxwell Black Consults: 05/05/21 22:29 Consult to Hospitalist Routine Consulting Provider: Hospitalist Reason For Exam: right groin pain (routine/non urgent) Attending physician on discharge: Maxwell Black DS: Diagnosis Discharge Diagnosis (1) Schizoaffective disorder: Status: Chronic (2) Suicidal ideation: Status: Resolved DS: Medications Discharge Medications Home Medications: Previous Rx's Medication Instructions Recorded clozapine 100 mg tablet 200 mg PO BEDTIME 30 Days #60 tab 05/11/21 Mental Status Exam Mental Status Exam Narrative: Pt is alert and oriented; behavior is marginally cooperative with limitations; he remains guarded; dressed in casual cloths with unkempt hair and so-so hygiene; mood is 'ok ; affect constricted;?Limited and somewhat avoidant eye contact; Speech is normal rate, volume and prosody; not pressured; no psychomotor retardation present; thought process organized and linear; although less intense, his thought content remains ?embroiled in concerns of being persecuted and on whether or not staff is a part of conspiracy against him; he denies AVH;? but still? reports he gets messages from conspirators through TV, radio, people, cellphone or email-however this has also lessened; denies SI; no HI; Patients insight and judgment are impaired, but possibly improving. Data Data Completed and Pending Completed studies during hospitalization [Text1]: 05/05/21 05/05/21 08:04 08:04 WBC 8.7 8.6 RBC 4.88 4.92 Hgb 14.5 14.7 Hct 42.9 43.3 MCV 87.9 88.0 MCH 29.7 29.9 MCHC 33.8 33.9 RDW 12.7 12.6 Plt Count 252 247 MPV 9.8 9.5 Immature Gran % (Auto) 0.3 0.3 Neut % (Auto) 68.1 68.4 Lymph % (Auto) 18.6 L 18.4 L [place] % (Auto) 8.7 8.8 Eos % (Auto) 3.8 3.8 Baso % (Auto) 0.5 0.3 Lymph # (Auto) 1.6 1.6 [place] # (Auto) 0.8 0.8 Eos # (Auto) 0.3 0.3 Baso # (Auto) 0.0 0.0 Abs Immat Gran (auto) 0.03 0.03 Absolute Neuts (auto) 5.9 5.9 Absolute Nucleated RBC 0.000 0.000 Nucleated RBC % (auto) 0.0 0.0 Additional Comments Additional comments: PAST PSYCH HX: (patient reports that Seroquel was most effective in the past, though he said it was for something totally different; clozapine has some similarities to Seroquel as they are both low potency; pt has had numerous other med trials with little to no effect; agrees to blood draws; sign writer hand reviewed risks/side effects of Clozapine) Med trials: Rispderal: possible some benefit? pt denies Abilify Haldol: dystonia? 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 confessing crimes, sectioned to the ED) -this admission, patient self presented to the emergency room saying he was suicidal with thoughts or plans to stab himself with a knife or shoot himself with a gun; patient has been very guarded during this admission though he has started to disclose what he is struggling with. Patient has had several explosive episodes on the unit, yelling/screaming loudly, with intensity, with clenched fists (of note, while this is frightening and makes staff concerned about safety, he has made no threat to others and denies any HI, intention or urges to do so). ?He is very ambivalent about taking medications with a history of non adherence (currently says the don't work, are placebo ). ?Patient has no insight at all into his psychiatric illness/psychotic symptoms. ?Given the fact that patient was suicidal on admission, remains plagued by persecutory delusions with no insight and as a result tortures himself in the community, sign writer hand and team agree that patient is in imminent risk for harm to self and requires continued inpatient psychiatric treatment.? Plan was rob petition for civil commitment however patient decided to sign himself in -Medication hx: shared that only med that helped was Seroquel but he is not willing to retry since coming off it (for reasons he rather not discuss) was horrible event, causing hallucinations , not being able to tell if his mother was real, insominia for 4 days straight...He does not want any medication that is sedating since he feels need to be alert and focused. DS: Summary Hospital Course Hospital Course: Patient is a 35-year-old male with history of psychotic illness, recently charged from am 3 a few weeks ago who self presented to the emergency room saying that he ran to the hospital and if he had a gun he would shoot himself.? In ED patient was agitated and disorganized.? On floor patient received Haldol Ativan and Benadryl as a p.r.n. for agitation and was then calm.? On admission he did not want to talk and was very guarded. After about a week on the unit patient decided to open up some about his experiences: Patient under much distress, deliberating whether or not to disclose his thoughts to this sign writer hand.? Patient said at 1st he did not want to discuss his medications and did not want to discuss the problem he is having because he was not sure whether not he could trust sign writer hand, alluding to possibility that sign writer hand is part of conspiracy persecuting this patient.? Patient shared he wants help but is not sure what form the help should come in.? He also feels that medications are placebo and not doing anything.? However, as the conversation continued, patient eventually said F-it and started to disclose what he is struggling with.? With much emotional anguish, intermittent tears and outbursts of anger,? Patient reports that he believes he has committed crimes though he would not disclose them.? He went to the police to confess these crimes, hoping to be put in assisted for life.? Part of the reason he presented to police was because he has been shown things through different media [outlets] that imply that [he] will be tortured. ?Patient explained that he gets messages through the TV and radio and sometimes other people, his cell phone or e-mail that he is going to be tortured.? He thinks that the government and/or police or FBI are part of this conspiracy.? He says through tears that he has been told to do certain things by these communications that are impossible.? Certain things that if he does [them] to himself, he might lessen the amount of torture he will receive.? Patient yelled I water-boarded myself for 2 days trying to obey this order.? He repeated this and then? got extremely agitated, stood up, started yelling, clenching his fists,? smacking his hands and pacing the room...? Staff came over to assess for safety.? Patient calmed down and said that he does not want to hurt anyone and has no intention or plans to do so but understands that his actions were scary and he is apologetic.? Patient grabbed his head and repeated in loud, anguished voice ?I do not know what to do ?referring to whether to trust sign writer hand, take medications, stay on the inpatient unit or discharge... expressing he wants to trust sign writer hand but not sure if he can.? Talent Management Manager attempted some reality testing and also appealed to logic saying that while patient is worried he will be tortured, he appears to be tortured now by this tremendously confusing experience.? Patient said that he does trust his parents and younger sister however he believes they do not understand the situation.? At this point sign writer hand and patient agreed to conclude conversation and allow patient to calm down.? Patient then walked outside room into the hallway, and then screamed several times you did this to me or something like that; he was eventually willing to take an Ativan which he said helped him. Patient psychotic symptoms seem to be fueled in some part by childhood experiences and patient vaguely alluded to childhood trauma. Hospital course and reasoning:very guarded on admission; ?1.?Started on Abilify and Prozac intermittently willing to take Abilfy, prozac. Patient started to disclose more info.? However after listening to the psychotic symptoms and mood stabilizing properties of Abilify, patient said he agrees to a trial of Abilify.? Patient reports that he was feeling suicidal prior to admission but that all SI has resolved. -initially intermittent med adherent with Abilify; denies side effects; at one point said it seemed to help with racing thoughts and depression but has since he does not think this the case. -patient suffering from persecutory delusions and subsequent depression and anxiety -some modest improvement on Abilfiy 15mg; agrees to go to 30mg (pt wants to see christine if this is a beneficial medication and does not want to wait for a slower titration; sign writer hand agrees with this approach). -Abilify was increased to 30 mg and patient reports some modest improvement saying feels overall a little less stressed by his chronic worries a little more able to feel comfortable with staff; however he remains guarded. -patient has been on Abilify 30 mg for about 3 days now; at 1st it seemed there was some improvement however today he reports that he is just as tormented as ever and that medication is not effective; patient references his delusional thoughts that he is being persecuted and there is no way to avoid it.? He says it does not matter what I do i'm always wrong... Patient however says he is willing to stay and try clozapine trial started on 04/22/21. 2.?Started on Clozapine: -patient titrated to clozapine 200 mg adding about 50 mg per day to regimen; he agreed to stay in [facility] for now, which given patient's numerous monotherapy fails leaves 1 to consider trial of 2 antipsychotics 3.?Delirium from too much Clozapine:?likely due to being on prozac simultaneaously which raised clozapine levels (pt asked for quick titration) -on apr 28 Patient presents as more disorganized and what sound to be like medication side effects such as increased salivation. He also became delirious having both AH and VH. -NMS rulled out: All lab work negative ruling out any diagnostic markers for NMS -held Clozapine for 2 days and delirum and side-effects rully resolved. Pt agreed to restarting Clozapine but at a slower titration -abiligabe and prozac discontinued 4.?Clozapine restarted and re-titrated but at slower rate Again on Clozapine, pt reported feeling better saying he has less racing thoughts, anxiety and depression. Still paranoid delusions. Agrees to continued titration of Clozapine. depression and anxiety remain less bothersome; he still feels persecuted/conspired against however he feels less intruded upon by those persecuting him; still receives covert messages but they are less frequent/intrusive; ambivalent if lessening symptoms due meds or time (or persecutors); not sure if lessening of symptoms is a good thing or not.? Remains without side effects. Patient remained without any SI or HI throughout his admission. Though mostly keeping to himself and guarded with disclosures he was open with sign writer hand about his symptoms and demonstrated consistent appropriate behavior and impulse control on the unit. CBC labs were drawn weekly and remained within normal limits and he tolerated clozapine well, even at 200 mg q.h.s., reporting absence of all side effects. On clozapine, patient consistently reported that his anxiety and depression were much improved. Although he continued to struggle with paranoid delusions he continually said he was overall less stressed by them. And while he continued to receive messages from conspirators, he said it was happening much less often. Talent Management Manager and patient discussed discharge and patient said he felt safe, stable and ready to work on treatment as an outpatient with both his prescriber and Therapist. He feels he can commit to taking the medication for at least 3 months and will try to self-assess and keep a log recording his mood, burden and stress level, hoping to get a better idea of whether the medication remains effective. Talent Management Manager discussed and patient understood risks of clozapine as well as the continued need to get blood draws once a week to which he agrees. Patient was not in imminent risk for harm to self or others and does not rise to the level of involuntary commitment. His request for discharge honored. While he continues to suffer from psychotic symptoms, has is significantly less burdened and with some improved insight, saying he thinks it's best for him to continue with treatment as an outpatient. on day of discharge, pt's WBC was mildly elevated; vitals wnl and pt denies feeling sick. Talent Management Manager discussed this with Pt who felt confident to proceed with planned discharge. Time Spent with Patient Time attestation: Total time spent providing and/or coordinating discharge services: Discharge Plan Discharge Patient Disposition: Home, Self-Care Discharge Diagnosis: Schizoaffective disorder, depressed type Referrals: Mamta Garcia (therapy intake) [Other] - 05/12/21 2:00 pm (Appointment is in office. When you are finished with your appointment, go to the front office agent to reserve a computer room for your psychiatry appointments) Sukhwinder Samuel (psychiatrist) [Other] - 05/25/21 9:00 am (Appointment will be over Zoom, but you will go to the office and reserve a computer room to use for the Zoom call after your therapy intake appointment) Sukhwinder Samuel (psychiatrist) [Other] - 06/22/21 10:00 am (Appointment will be over Zoom, but you will go to the office and reserve a computer room to use for the Zoom call after your therapy intake appointment) Marvel Goetz [Physician] - 05/24/21 3:45 pm (in office) Discharge Medications: New clozapine 100 mg Tablet 200 mg PO BEDTIME 30 Days Qty: 60 RF: 0 Discontinued haloperidol 5 mg tablet 1 tab PO BEDTIME RF: 0 benztropine 1 mg tablet 1 tab PO BEDTIME RF: 0 fluoxetine 20 mg capsule 3 cap PO DAILY RF: 0 aripiprazole 10 mg tablet 1 tab PO DAILY RF: 0 Discharge Orders: Discharge Order (Routine); Ordered 05/12/21 Ordered By: Maxwell Black Diet: regular diet Activity on Discharge: As tolerated Stand Alone Forms: Patient Portal Discharge page, Community Support Other Ambulatory Orders: Complete Blood Count Auto Diff (QWEEK) Timeframe: [id number] Facility: [facility] - Location: Laboratory Ordered By: Maxwell Black Care Plan Goals: Maintain mood and safe behaviors Take medications as prescribed Practice coping skills Continue with outpatient providers and reach out to them as needed Health Concerns: Mood stability and behaviors Plan of Treatment: Follow up with your outpatient provider regarding above concerns Take medications as prescribed Assessment: Risk assessment at time of discharge:? Patient was interviewed prior to discharge and found to be fully oriented and without any SI or HI. Patient has insight and demonstrates good judgment in terms of wanting to pursue treatment. Patient is not in imminent risk of harm to self or others and has a safety plan that includes presenting to the closest ER or calling 911 if feeling unsafe.? Patient has been observed closely by nursing and unit staff throughout admission; patient has not engaged in any behaviors that suggest dangerousness to self or others and has demonstrated appropriate behaviors and impulse control Discharge Date/Time: 05/12/21 13:25
[2021-05-11 19:31] VITALS: BP 97/69; PULSE 89; RESP 16; TEMP 36.4; O2SAT 95
[2021-05-11] MEDS: cloZAPine 100 MG TABLET 200 MG PO (20:09)
[2021-05-12 06:00] VITALS: BP 99/62; PULSE 81; RESP 16; TEMP 36.1; O2SAT 95
[2021-05-12 07:00] VITALS: BMI 22.1
[2021-05-12 08:00] LABS: MANUAL DIFF FLAG NO
[2021-05-12 08:02] LABS: Basophils Percent Auto 0.3 % (0-2); Eosinophils Absolute Auto 0.4 X10*3/uL (0.0-0.4); Eosinophils Percent Auto 3.4 % (0-4); Hematocrit 41.4 % (42-52); Imm Gran Abs Auto 0.02 X10*3/uL (0.00-0.03); Imm Gran Pct Auto 0.2 % (0.0-0.4); Lymphocytes Absolute Auto 1.5 X10*3/uL (1.2-4.9); Lymphocytes Percent Auto 11.5 % (20-40); Mean Corpuscular HGB Conc 33.8 g/dl (31.0-36.0); Mean Corpuscular Hemoglobin 29.9 pg (27.0-33.0); Mean Corpuscular Volume 88.3 fL (80-98); Mean Platelet Volume 9.8 fL (9.4-12.4); Monocytes Absolute Auto 0.7 X10*3/uL (0.1-1.2); Monocytes Percent Auto 5.6 % (2-11); Neutrophils Absolute Auto 10.1 X10*3/uL (2.0-8.3); Platelet Count 248 X10*3/uL (160-400); Red Blood Count 4.69 X10*6/uL (4.60-5.80); Red Cell Distribution Width 12.8 % (11.0-16.0); White Blood Count 12.7 X10*3/uL (4.8-10.8)
[2021-05-12] MEDS: Ibuprofen 600 MG TABLET PO (08:38)
[2021-05-17 11:15] LABS: Clozapine (Clozaril) 334 mcg/L; Norclozapine 133 mcg/L (25-400)
== END 2021-05-12 13:25 | disposition home or self-care (01) | DRG 750 ==
LOC: HO.ED 19:55 → HO.PM5 21:48
PROVIDERS: Admitting Provider Psychiatry & Neurology Psychiatry; Emergency Provider Emergency Medicine; Visit Provider Psychiatry & Neurology Psychiatry
DX: F25.1 Schizoaffective disorder, depressive type (principal); R45.851 Suicidal ideations; R10.30 Lower abdominal pain, unspecified; Z20.822 Contact with and (suspected) exposure to COVID-19; Z87.891 Personal history of nicotine dependence; Z79.899 Other long term (current) drug therapy
CPT/HCPCS: 36415; 80051; 80076; 80159; 80307; 82550; 82565; 83615; 84520; 85025; 87635; 93005; 96372; 99285; J3486; Q0163

== ENCOUNTER → 2021-04-06 21:38 | Outpatient (BNV) | payer OTHER, SELFPAY | PROVIDERS: Admitting Provider Psychiatry & Neurology Psychiatry; Emergency Provider Emergency Medicine; Visit Provider Psychiatry & Neurology Psychiatry | DX: F25.1 Schizoaffective disorder, depressive type (principal); R45.851 Suicidal ideations | CPT/HCPCS: 99231; 99232; 99499 ==

== ENCOUNTER 2021-07-03 20:22 | Inpatient (IN) | payer MEDICAID, SELFPAY ==
[2021-07-03 20:37] VITALS: BMI 23.7
[2021-07-03 21:12] VITALS: BP 119/93; PULSE 119; RESP 19; TEMP 36.8; O2SAT 97
[2021-07-03 21:46] LABS: Eosinophils Percent Auto 0.1 % (0-4); MANUAL DIFF FLAG SCAN; SCAN SMEAR FLAG 1
[2021-07-03 21:54] LABS: COVID-19 Test Negative (Negative); IDNOW Serial# 55D5AD1C
[2021-07-03 21:55] LABS: Basophils Absolute Auto 0.1 X10*3/uL (0.0-0.2); Basophils Percent Auto 0.5 % (0-2); Hemoglobin 19.5 g/dl (14.0-18.0); Imm Gran Abs Auto 0.04 X10*3/uL (0.00-0.03); Imm Gran Pct Auto 0.3 % (0.0-0.4); Lymphocytes Percent Auto 13.8 % (20-40); Mean Corpuscular HGB Conc 34.6 g/dl (31.0-36.0); Mean Corpuscular Hemoglobin 30.1 pg (27.0-33.0); Monocytes Absolute Auto 1.7 X10*3/uL (0.1-1.2); Monocytes Percent Auto 11.3 % (2-11); Neutrophils Absolute Auto 10.76 x10*3/uL (2.0-8.3); Platelet Count 355 X10*3/uL (160-400); Red Blood Count 6.47 X10*6/uL (4.60-5.80); Red Cell Distribution Width 13.3 % (11.0-16.0); White Blood Count 14.6 X10*3/uL (4.8-10.8)
[2021-07-03 21:56] LABS: Hematocrit 56.3 % (42.0-52.0)
[2021-07-03 22:02] LABS: Amphetamine Screen Urine Not Detected (Not Detect); Barbiturates, Urine Not Detected (Not Detect); Benzodiazepines Screen Urine Not Detected (Not Detect); Cannabinoid Screen Urine Not Detected (Not Detect); Cocaine Screen Urine Not Detected (Not Detect); Fentanyl, urine Not Detected (Not Detect); Opiate Screen Urine Not Detected (Not Detect); Phencyclidine Screen Urine Not Detected (Not Detect)
[2021-07-03 22:07] LABS: Blood Urea Nitrogen 34 mg/dL (9-16); Calcium 10.8 mg/dL (8.4-10.2); Creatinine Clr Calc Pharmacy 67.1; Estimated Glomerular Filt Rate 48; Glucose Random 135 mg/dL (60-115)
[2021-07-03 22:14] LABS: SLIDE REVIEW VERIFIED
--- NOTE | 2021-07-03 22:15 | ED_ITS ---
HPI - Psych General Chief Complaint: Psychiatric Symptoms Stated Complaint: evaluation Time Seen by Provider: 07/03/21 22:15 Source: patient Mode of arrival: EMS History of Present Illness HPI Narrative: 35-year-old male with history of depression/schizoaffective disorder/PTSD who is brought in by EMS after his sister visited him this evening and noted that patient had turned off his electricity, and he had tied noose looking ropes and had used her phone to look up ?ways to kill himself by starving?. When I with the patient he describes that he turned his electricity off for personal reasons and denies any eating disorder and states that he simply does not feel hungry or thirsty. However, he is agreeable to drinking water ?if it is necessary?. He denies feeling suicidal at this time but denies any recent illnesses involving fever, chills, diarrhea. Related Data Previous Rx's Medication Instructions Recorded clozapine 100 mg tablet 200 mg PO BEDTIME 30 Days #60 tab 05/11/21 Allergies Allergy/AdvReac Type Severity Reaction Status Date / Time olanzapine [OLANZAPINE] Allergy Severe FACIAL Verified 04/06/21 10:20 SWELLING Review of Systems Review of Systems: Pertinent positives and negatives as stated in HPI 10 point review of systems is otherwise negative. [facility] Past Medical History Source: nursing notes reviewed Medical History PTSD (post-traumatic stress disorder) Schizoaffective disorder Social History Social History Household Members: None Household Members Other:: 0 Housing: Apartment Do you presently have visiting nurse or other home services: No Unable to assess alcohol history related to: Unknown Patient Tobacco Use Status: Former Tobacco user Quit Date: Unknown Tobacco use type: Cigarette e-Cigarette/Vaping Use: Never Used Second Hand Smoke Exposure: No Substance Use Type: Marijuana Advance Directives: No Advance Directives Information Provided: No service: No Sexual orientation: did not discuss. Physical Exam Vital Signs: Vital Signs: Last Vital Signs Temp 98.3 F 07/03/21 21:12 Pulse 119 H 07/03/21 21:12 Resp 19 07/03/21 21:12 BP 119/93 H 07/03/21 21:12 Pulse Ox 97 07/03/21 21:12 Body Mass Index 23.7 VITAL SIGNS: Reviewed. GENERAL: Cachectic, malnourished, in no acute distress. HEAD: Normocephalic/atraumatic, temporal wasting EYES: PERRLA, EOMI OROPHARYNX: no oral lesions noted, posterior pharynx clear, dry mucosa NECK: Supple, no adenopathy LUNGS: Normal breath sounds. No adventitious sounds or accessory muscle use. SpO2<97> CARDIOVASCULAR: Tachycardia rate and rhythm without noted murmurs, no JVD or lower extremity edema. ABDOMEN: Soft, non-tender, non-distended with bowel sounds. MUSCULOSKELETAL: No tenderness, deformities, or effusions noted on gross inspection. EXTREMITIES: No cyanosis, clubbing or edema. SKIN: Inspection of the skin reveals no rashes NEUROLOGIC: Alert and oriented x 4. Strength and sensation to light touch were grossly intact x 4. Course Course Course Narrative: 35-year-old male with history and clinical old presentation concerning for intentional starvation, and despite denying suicidal ideation collateral information and clinical observation suggest otherwise. Will obtain laboratory workup and patient may require medical admission for degree of starvation. On review of all investigations there evidence of starvation ketoacidosis, CHANDNI, dehydration. Patient will be medically admitted and initially started on IV fluid resuscitation. I discussed this case with the inpatient hospitalist who accepts admission. MDM - Psych Lab Data Result diagrams: 07/03/21 21:40 07/03/21 21:40 Labs: Lab Results 07/03/21 07/03/21 07/03/21 Range/Units 21:25 21:25 21:40 WBC 14.6 H (4.8-10.8) X10*3/uL RBC 6.47 H (4.60-5.80) X10*6/uL Hgb 19.5 H (14.0-18.0) g/dl Hct 56.3 H (42.0-52.0) % MCV 87.0 (80.0-98.0) fL MCH 30.1 (27.0-33.0) pg MCHC 34.6 (31.0-36.0) g/dl RDW 13.3 (11.0-16.0) % Plt Count 355 (160-400) X10*3/uL MPV 10.0 (9.4-12.4) fL Immature Gran % (Auto) 0.3 (0.0-0.4) % Neut % (Auto) 74.0 H (45-73) % Lymph % (Auto) 13.8 L (20-40) % [place] % (Auto) 11.3 H (2-11) % Eos % (Auto) 0.1 (0-4) % Baso % (Auto) 0.5 (0-2) % Lymph # (Auto) 2.0 (1.2-4.9) X10*3/uL [place] # (Auto) 1.7 H (0.1-1.2) X10*3/uL Eos # (Auto) 0.0 (0.0-0.4) X10*3/uL Baso # (Auto) 0.1 (0.0-0.2) X10*3/uL Abs Immat Gran (auto) 0.04 H (0.00-0.03) X10*3/uL Absolute Neuts (auto) 10.76 H (2.0-8.3) x10*3/uL Absolute Nucleated RBC 0.000 (0.0-0.012) X10*3/uL Nucleated RBC % (auto) 0.0 (0.0-0.2) /100WBC Smear Tech's Comments VERIFIED Sodium (135-145) mmol/L Potassium (3.3-5.1) mmol/L Chloride (96-108) mmol/L Carbon Dioxide (22-29) mmol/L Anion Gap (12-20) BUN (9-16) mg/dL Creatinine (0.5-1.4) mg/dL Estim Creat Clear Calc Estimated GFR Random Glucose (60-115) mg/dL Calcium (8.4-10.2) mg/dL Phosphorus (2.7-4.5) mg/dL Magnesium (1.6-2.6) mg/dL Total Bilirubin (0.0-1.0) mg/dL Direct Bilirubin (0.0-0.5) mg/dL AST (5-37) U/L ALT (0-40) U/L Alkaline Phosphatase (39-117) U/L Total Protein (6.5-8.0) g/dL Albumin (3.5-5.0) g/dL Urine Opiates Screen Not Detected (Not Detect) Urine Fentanyl Screen Not Detected (Not Detect) Ur Barbiturates Screen Not Detected (Not Detect) Ur Phencyclidine Scrn Not Detected (Not Detect) Ur Amphetamines Screen Not Detected (Not Detect) U Benzodiazepines Scrn Not Detected (Not Detect) Urine Cocaine Screen Not Detected (Not Detect) U Marijuana (THC) Screen Not Detected (Not Detect) COVID-19 ([facility]ERMAN) Negative (Negative) COVID-19 Clin Com See Note 07/03/21 Range/Units 21:40 WBC (4.8-10.8) X10*3/uL RBC (4.60-5.80) X10*6/uL Hgb (14.0-18.0) g/dl Hct (42.0-52.0) % MCV (80.0-98.0) fL MCH (27.0-33.0) pg MCHC (31.0-36.0) g/dl RDW (11.0-16.0) % Plt Count (160-400) X10*3/uL MPV (9.4-12.4) fL Immature Gran % (Auto) (0.0-0.4) % Neut % (Auto) (45-73) % Lymph % (Auto) (20-40) % [place] % (Auto) (2-11) % Eos % (Auto) (0-4) % Baso % (Auto) (0-2) % Lymph # (Auto) (1.2-4.9) X10*3/uL [place] # (Auto) (0.1-1.2) X10*3/uL Eos # (Auto) (0.0-0.4) X10*3/uL Baso # (Auto) (0.0-0.2) X10*3/uL Abs Immat Gran (auto) (0.00-0.03) X10*3/uL Absolute Neuts (auto) (2.0-8.3) x10*3/uL Absolute Nucleated RBC (0.0-0.012) X10*3/uL Nucleated RBC % (auto) (0.0-0.2) /100WBC Smear Tech's Comments Sodium 152 H (135-145) mmol/L Potassium 4.1 (3.3-5.1) mmol/L Chloride 114 H (96-108) mmol/L Carbon Dioxide 17 L (22-29) mmol/L Anion Gap 25 H (12-20) BUN 34 H D (9-16) mg/dL Creatinine 1.62 H (0.5-1.4) mg/dL Estim Creat Clear Calc 67.1 Estimated GFR 48 Random Glucose 135 H (60-115) mg/dL Calcium 10.8 H D (8.4-10.2) mg/dL Phosphorus 4.4 (2.7-4.5) mg/dL Magnesium 2.5 (1.6-2.6) mg/dL Total Bilirubin 1.0 (0.0-1.0) mg/dL Direct Bilirubin 0.4 (0.0-0.5) mg/dL AST 17 (5-37) U/L ALT 14 (0-40) U/L Alkaline Phosphatase 79 (39-117) U/L Total Protein 8.6 H D (6.5-8.0) g/dL Albumin 5.3 H D (3.5-5.0) g/dL Urine Opiates Screen (Not Detect) Urine Fentanyl Screen (Not Detect) Ur Barbiturates Screen (Not Detect) Ur Phencyclidine Scrn (Not Detect) Ur Amphetamines Screen (Not Detect) U Benzodiazepines Scrn (Not Detect) Urine Cocaine Screen (Not Detect) U Marijuana (THC) Screen (Not Detect) COVID-19 ([facility]) (Negative) COVID-19 Clin Com ECG Data Attestation: I personally reviewed and interpreted this ECG as follows: Prior ECG tracings: available for review (04/06/21 ) Interpretation: Significant artifact, sinus tachycardia, HR-124, no STEMI, HI/QRS/QTc are within normal limits. Discharge Plan Discharge Clinical Impression: Schizoaffective disorder, Starvation ketoacidosis, CHANDNI (acute kidney injury) Patient Disposition: Admitted As Inpatient
[2021-07-03 22:19] LABS: Anion Gap 25 (12-20); Carbon Dioxide 17 mmol/L (22-29); Chloride 114 mmol/L (96-108); Potassium 4.1 mmol/L (3.3-5.1); Sodium 152 mmol/L (135-145)
--- NOTE | 2021-07-03 22:23 | ECG_ITS ---
Test Reason : DEHYDRATION Blood Pressure : / mmHG Vent. Rate : 124 BPM Atrial Rate : 124 BPM P-R Int : 124 ms QRS Dur : 078 ms QT Int : 306 ms P-R-T Axes : 081 092 058 degrees QTc Int : 439 ms Sinus tachycardia Rightward axis Borderline ECG Heart rate has increased Referred By: Maria R Umana Electronically Signed By:MIKE RUST MD
[2021-07-03 22:34] LABS: Magnesium 2.5 mg/dL (1.6-2.6); Phosphorus 4.4 mg/dL (2.7-4.5)
[2021-07-03 22:36] LABS: Alanine Aminotransferase 14 U/L (0-40); Albumin Level 5.3 g/dL (3.5-5.0); Alkaline Phosphatase 79 U/L (39-117); Aspartate Amino Transferase 17 U/L (5-37); Bilirubin Direct 0.4 mg/dL (0.0-0.5); Total Protein 8.6 g/dL (6.5-8.0)
[2021-07-03] MEDS: 0.9 % Sodium Chloride 2,000 ML 999 ML IV (22:50)
--- NOTE | 2021-07-03 22:51 | PC.NURSE ---
IV established, IVF infusing per MAR. Pt resting in bed in POC. Continue to monitor.
--- NOTE | 2021-07-03 23:14 | P.HPHOSP_ITS ---
History of Present Illness Date of Service: 07/03/21 Chief Complaint: Poor intake 35-year-old male with a past medical history of PTSD, schizoaffective disorder presented to the hospital with a chief complaint of poor oral intake. At the time of my interview patient appears to have flat affect; denies any chest pain palpitations lightheadedness dizziness. Denies any fever chills cough. Denies any GI or symptoms. Review of all other systems is negative. Patient mentions that he was brought into the hospital because he was dehydrated; mentions that eating okay but has not been drinking enough over the past few days. Patient denied permission me to talk to sister or his mother. Patient denied feeling low, depressed suicidal or homicidal ideations. ER course: Per ER team patient was brought in by the patient's sister because patient was not eating and drinking over past few days. ER team also mentioned the patient mother reported that patient not been eating for many days and lost significant amount of weight; also reported that patient was searching in the patient's sister's phone on how to starve to . In patient on exam noted to be thin built dehydrated, lab showed hypernatremia to 152, mildly tachycardic, afebrile, CHANDNI possible starvation ketoacidosis. ER team has placed patient in Section 12. [facility] Medical History PTSD (post-traumatic stress disorder) Schizoaffective disorder Pertinent family history: reviewed Social History Household Members: None Household Members Other:: 0 Housing: Apartment Do you presently have visiting nurse or other home services: No Unable to assess alcohol history related to: Unknown Patient Tobacco Use Status: Former Tobacco user Quit Date: Unknown Tobacco use type: Cigarette e-Cigarette/Vaping Use: Never Used Second Hand Smoke Exposure: No Substance Use Type: Marijuana Advance Directives: No Advance Directives Information Provided: No service: No Sexual orientation: did not discuss. Meds Allergies Allergy/AdvReac Type Severity Reaction Status Date / Time olanzapine [OLANZAPINE] Allergy Severe FACIAL Verified 04/06/21 10:20 SWELLING Active Medications: Current Medications Acetaminophen (Acetaminophen 325 Mg Tablet) 650 mg PO Q6H PRN PRN Reason: Pain, Mild (Pain Scale 1-3) Sodium Chloride (Ns) 2,000 mls @ 999 mls/hr IV .Q2H1M STA Stop: 07/04/21 00:36 Last Admin: 07/03/21 22:50 Dose: 999 mls/hr Documented by: Dextrose/Sodium Chloride (D51/2ns) 1,000 mls @ 50 mls/hr IVCONT .Q20H [facility] Melatonin (Melatonin 3 Mg Tablet) 6 mg PO BEDTIME PRN PRN Reason: Insomnia Senna (Sennosides 8.6 Mg Tablet) 17.2 mg PO BEDTIME PRN PRN Reason: Constipation Sodium Chloride (0.9 % Sodium Chloride Flush 3 Ml Syringe) 3 ml IVFLUSH QSHIFT [facility] Physical Exam Vital Signs and Narrative: Vital Signs: Last Vital Signs Temp 98.3 F 07/03/21 21:12 Pulse 119 H 07/03/21 21:12 Resp 19 07/03/21 21:12 BP 119/93 H 07/03/21 21:12 Pulse Ox 97 07/03/21 21:12 Body Mass Index 23.7 Gen: Appears be in no acute distress HEENT: NCAT, Moist mucosa. Pulmonary: Vesicular breath sounds, fair air entry CVS: Normal S1-S2 Abdomen: BS+, Soft, Nontender Extremities: Warm well perfused Neuro: Alert and awake. Grossly nonfocal Mood: Flat affect Results Labs CBC and Chem 7: 07/03/21 21:40 07/03/21 21:40 Labs: Laboratory Results - last 24 hr 07/03/21 07/03/21 07/03/21 21:25 21:25 21:40 MCV 87.0 MCH 30.1 MCHC 34.6 RDW 13.3 Plt Count 355 MPV 10.0 Immature Gran % (Auto) 0.3 Neut % (Auto) 74.0 H Lymph % (Auto) 13.8 L [place] % (Auto) 11.3 H Eos % (Auto) 0.1 Baso % (Auto) 0.5 Lymph # (Auto) 2.0 [place] # (Auto) 1.7 H Eos # (Auto) 0.0 Baso # (Auto) 0.1 Abs Immat Gran (auto) 0.04 H Absolute Neuts (auto) 10.76 H Absolute Nucleated RBC 0.000 Nucleated RBC % (auto) 0.0 Smear Tech's Comments VERIFIED Anion Gap Estim Creat Clear Calc Estimated GFR Random Glucose Calcium Phosphorus Magnesium Total Bilirubin Direct Bilirubin AST ALT Alkaline Phosphatase Total Protein Albumin Urine Opiates Screen Not Detected Urine Fentanyl Screen Not Detected Ur Barbiturates Screen Not Detected Ur Phencyclidine Scrn Not Detected Ur Amphetamines Screen Not Detected U Benzodiazepines Scrn Not Detected Urine Cocaine Screen Not Detected U Marijuana (THC) Screen Not Detected COVID-19 ([facility]) Negative COVID-19 Clin Com See Note 07/03/21 21:40 MCV MCH MCHC RDW Plt Count MPV Immature Gran % (Auto) Neut % (Auto) Lymph % (Auto) [place] % (Auto) Eos % (Auto) Baso % (Auto) Lymph # (Auto) [place] # (Auto) Eos # (Auto) Baso # (Auto) Abs Immat Gran (auto) Absolute Neuts (auto) Absolute Nucleated RBC Nucleated RBC % (auto) Smear Tech's Comments Anion Gap 25 H Estim Creat Clear Calc 67.1 Estimated GFR 48 Random Glucose 135 H Calcium 10.8 H D Phosphorus 4.4 Magnesium 2.5 Total Bilirubin 1.0 Direct Bilirubin 0.4 AST 17 ALT 14 Alkaline Phosphatase 79 Total Protein 8.6 H D Albumin 5.3 H D Urine Opiates Screen Urine Fentanyl Screen Ur Barbiturates Screen Ur Phencyclidine Scrn Ur Amphetamines Screen U Benzodiazepines Scrn Urine Cocaine Screen U Marijuana (THC) Screen COVID-19 ([facility]) COVID-19 Clin Com Assessment and Plan (1) Schizoaffective disorder: Status: Chronic (2) CHANDNI (acute kidney injury): Status: Acute (3) Starvation ketoacidosis: Status: Acute (4) Hypernatremia: Status: Acute 35-year-old male with a past medical history of schizoaffective disorder, PTSD presented to the hospital with a chief complaint oral intake/dehydration. Dehydration: Likely in setting of poor oral intake. Patient has intestine weight loss. IV fluids. Nutrition consult. Schizoaffective disorder/PTSD: Patient self discontinued home medications. Depression: Patient denied any suicidal or homicidal ideation to me. But ER team reported that patient was intentionally starving himself and searching for information on how to starve to . Patient was section 12 in the ER. One-to-one observation for safety. CHANDNI: Likely prerenal. IV fluids. Hypernatremia: Patient receiving normal saline in the ER. Will keep the patient on D5 saline. Repeat blood chemistry. Nephrology consult. Ketoacidosis: On IV fluids. Hypercalcemia likely in the setting dehydration. Patient on IV fluids. Tylenol ingestion: Patient reported to the RN that he had back pain and he took Tylenol almost about 7 g. Denies any ideas suicide to the RN. DVT prophylaxis: SCD boots Code status: Full code Of note: Patient refused permission for me to talk to patient's mother or patient's sister. Will defer to a.m. team to readdress. Quality Stroke Does the patient have a stroke diagnosis?: No VTE Prior VTE?: No VTE Risk Level:: Medical - low VTE Device Contraindication: N/A - Device Ordered VTE Drug Contraindication: Treatment Not Indicated
--- NOTE | 2021-07-03 23:22 | PC.NURSE ---
[facility] referral completed via smart sheet, confirmed by Yomi, patient will be seen in the morning.
[2021-07-04 00:03] VITALS: BP 136/84; PULSE 107; RESP 18; TEMP 36.6; O2SAT 98
[2021-07-04] MEDS: Dextrose 5 % and 0.45 % NaCl 1,000 ML 50 ML IVCONT (00:06)
[2021-07-04 00:08] LABS: VBG Base Excess -8.4 mmol/L; VBG HCO3 15 mmol/L (22-26); VBG pCO2 27 mmHg; VBG pH 7.35 (7.32-7.43); VBG pO2 69 mmHg
[2021-07-04 00:18] LABS: Venous Blood Gas Refer to POC result
[2021-07-04 03:06] VITALS: BP 117/79; PULSE 96; RESP 16
--- NOTE | 2021-07-04 03:07 | PC.NURSE ---
Pt moved into room 19. VSS at this time. Pt calm and cooperative, resting in bed, IVF infusing per MAR. Call powell within reach, sitter at bedside.
--- NOTE | 2021-07-04 03:13 | PC.NURSE ---
As this RN was transferring pt into room 19, pt began asking questions r/t his bloodwork. This RN discussing elevated kidney function d/t dehydration. Pt then said Is this because I overdosed on Tylenol 3 days ago? I know the max is 4000 mg so I took 7000 mg but nothing happened. Pt denies trying to hurt himself, states my back just hurt and the Tylenol was working so I just kept taking it. Pt denies taking any other medications/drugs. This RN contacting Hospitalist regarding possible Tylenol OD. Per Hospitalist, to obtain stat chemistry and Tylenol level. Pt agreeable to bloodwork. Sitter remains at bedside.
[2021-07-04 03:35] LABS: Basophils Absolute Auto 0.1 X10*3/uL (0.0-0.2); Basophils Percent Auto 0.4 % (0-2); Eosinophils Absolute Auto 0.1 X10*3/uL (0.0-0.4); Eosinophils Percent Auto 0.7 % (0-4); Hematocrit 48.9 % (42.0-52.0); Imm Gran Abs Auto 0.03 X10*3/uL (0.00-0.03); Imm Gran Pct Auto 0.2 % (0.0-0.4); Lymphocytes Absolute Auto 2.5 X10*3/uL (1.2-4.9); Lymphocytes Percent Auto 20.2 % (20-40); MANUAL DIFF FLAG SCAN; Mean Corpuscular HGB Conc 34.8 g/dl (31.0-36.0); Mean Corpuscular Hemoglobin 30.5 pg (27.0-33.0); Mean Corpuscular Volume 87.8 fL (80.0-98.0); Mean Platelet Volume 9.9 fL (9.4-12.4); Monocytes Absolute Auto 1.7 X10*3/uL (0.1-1.2); Monocytes Percent Auto 13.9 % (2-11); Neutrophils Absolute Auto 7.83 x10*3/uL (2.0-8.3); Neutrophils Percent Auto 64.6 % (45-73); Platelet Count 268 X10*3/uL (160-400); Red Blood Count 5.57 X10*6/uL (4.60-5.80); Red Cell Distribution Width 13.3 % (11.0-16.0); SCAN SMEAR FLAG 1; White Blood Count 12.1 X10*3/uL (4.8-10.8)
[2021-07-04 03:54] LABS: Acetaminophen LAB < 1 mcg/mL (<30); Alanine Aminotransferase 12 U/L (0-40); Albumin Level 4.3 g/dL (3.5-5.0); Alkaline Phosphatase 62 U/L (39-117); Anion Gap 16 (12-20); Aspartate Amino Transferase 14 U/L (5-37); Blood Urea Nitrogen 31 mg/dL (9-16); Calcium 9.2 mg/dL (8.4-10.2); Carbon Dioxide 22 mmol/L (22-29); Chloride 118 mmol/L (96-108); Creatinine Clr Calc Pharmacy 88.4; Estimated Glomerular Filt Rate > 60; Glucose Random 125 mg/dL (60-115); Potassium 4.3 mmol/L (3.3-5.1); Sodium 152 mmol/L (135-145); Total Protein 6.9 g/dL (6.5-8.0)
[2021-07-04 05:59] VITALS: BP 115/81; PULSE 98; RESP 15; TEMP 36.6; O2SAT 98
[2021-07-04] MEDS: 0.9 % Sodium Chloride Flush 3 ML SYRINGE IVFLUSH ×2 (07:09→23:30)
--- NOTE | 2021-07-04 07:29 | PC.NURSE ---
sitter at bedside, declined breakfast
--- NOTE | 2021-07-04 07:34 | MHC.CARE ---
Addendum entered by Camille Márquez LCSW 07/04/21 10:06: Section 12A placed in chart- Pt will need a crisis evaluation and likely inpatient psychiatric admission following medical clearance Original Note: Please consult CARE Team when medically cleared.
[2021-07-04 08:46] LABS: Alanine Aminotransferase 13 U/L (0-40); Albumin Level 4.2 g/dL (3.5-5.0); Alkaline Phosphatase 59 U/L (39-117); Anion Gap 14 (12-20); Aspartate Amino Transferase 16 U/L (5-37); Bilirubin Total 1.3 mg/dL (0.0-1.0); Blood Urea Nitrogen 27 mg/dL (9-16); Calcium 9.1 mg/dL (8.4-10.2); Carbon Dioxide 25 mmol/L (22-29); Chloride 113 mmol/L (96-108); Creatinine Clr Calc Pharmacy 100.7; Estimated Glomerular Filt Rate > 60; Glucose Fasting 126 mg/dL (60-99); Sodium 148 mmol/L (135-145); Total Protein 6.7 g/dL (6.5-8.0)
--- NOTE | 2021-07-04 10:07 | P.CONNP_ITS ---
History of Present Illness Reason for Consult Consult date: 07/04/21 Reason for consult: Hypernatremia with CHANDNI Chief Complaint Chief complaint: Hypernatremia History of Present Illness Narrative: 35-year-old male with a past medical history of PTSD, schizoaffective disorder presented to the hospital with a chief complaint of poor oral intake.He denies any chest pain palpitations lightheadedness dizziness, any fever chills cough, GI or symptoms.? Review of all other systems is negative. Patient denied feeling low, depressed suicidal or homicidal ideations. He was found to have hypernatremia with sodium of 152, mildly tachycardic, afebrile, & CHANDNI. Nephrology has been consulted to assist in his clinical care Review of Systems Review of Systems Yes all other systems are reviewed and are negative PMFSH Past Medical History Medical History (Updated 07/03/21 @ 23:14 by Dutch Herzog MD) PTSD (post-traumatic stress disorder) Schizoaffective disorder Surgical History Surgical History (Updated 07/04/21 @ 23:49 by Makayla Sykes RN) H/O rhinoplasty Social History Social History Household Members: None Household Members Other:: 0 Housing: House Do you presently have visiting nurse or other home services: No Unable to assess alcohol history related to: Unknown Patient Tobacco Use Status: Former Tobacco user Quit Date: Unknown Tobacco use type: Cigarette e-Cigarette/Vaping Use: Never Used Second Hand Smoke Exposure: No Substance Use Type: Marijuana service: No Sexual orientation: did not discuss. Meds Allergies Allergy/AdvReac Type Severity Reaction Status Date / Time olanzapine [OLANZAPINE] Allergy Severe FACIAL Verified 04/06/21 10:20 SWELLING Active Medications: Current Medications Acetaminophen (Acetaminophen 325 Mg Tablet) 650 mg PO Q6H PRN PRN Reason: Pain, Mild (Pain Scale 1-3) Enoxaparin Sodium (Enoxaparin Sodium 40 Mg/0.4 Ml Syringe) 40 mg SUBCUT Q24H [facility] Last Admin: 07/04/21 18:56 Dose: Not Given Documented by: Sodium Chloride () 1,000 mls @ 100 mls/hr IVCONT .Q10H [facility] Last Admin: 07/04/21 23:30 Dose: 100 mls/hr Documented by: Melatonin (Melatonin 3 Mg Tablet) 6 mg PO BEDTIME PRN PRN Reason: Insomnia Senna (Sennosides 8.6 Mg Tablet) 17.2 mg PO BEDTIME PRN PRN Reason: Constipation Sodium Chloride (0.9 % Sodium Chloride Flush 3 Ml Syringe) [address] [facility] Last Admin: 07/04/21 23:30 Dose: 3 ml Documented by: Home Medications Medication Instructions Recorded Confirmed Last Taken Type No Known Home Meds 07/04/21 07/04/21 Unknown History Physical Exam Vital Signs: Last Vital Signs Temp 98.2 F 07/05/21 03:16 Pulse 79 07/05/21 03:16 Resp 18 07/05/21 03:16 BP 127/83 07/05/21 03:16 Pulse Ox 97 07/05/21 03:16 Body Mass Index 21.2 Const General: no acute distress Eyes EOM: EOMs intact bilaterally Neck Neck: Yes supple Resp Auscultation: diminished lung sounds Cardio Rate: regular rate GI Palpation (GI): Soft to palpation Neuro General: moves all extremities Results Lab Results Result Diagrams: 07/04/21 03:27 07/04/21 08:23 Lab results: Chemistry 07/03/21 07/04/21 07/04/21 21:40 03:27 08:23 Sodium 152 H 152 H 148 H Potassium 4.1 4.3 4.0 Carbon Dioxide 17 L 22 25 BUN 34 H D 31 H 27 H Creatinine 1.62 H 1.23 1.08 Calcium 10.8 H D 9.2 D 9.1 Phosphorus 4.4 Hematology 07/03/21 07/04/21 21:40 03:27 WBC 14.6 H 12.1 H Hgb 19.5 H 17.0 Plt Count 355 268 Assessment and Plan (1) CHANDNI (acute kidney injury): Status: Acute Acute Kidney Injury due to compromise in renal perfusion Hypernatremia due to reduced free water intake Serum Na and renal functions improving Continue current supportive care for now Labs AM. Shall closely follow up Procedures Date of Service Date of Service: 07/04/21
[2021-07-04 13:10] VITALS: BP 126/74; PULSE 82; RESP 19; O2SAT 97
[2021-07-04] MEDS: Sodium Chloride 0.45 % 1,000 ML 100 ML IVCONT ×2 (13:10→23:30)
--- NOTE | 2021-07-04 16:54 | HO.PM.IMPN ---
Subjective Subjective Date of Service: 07/04/21 Physical Exam Vital Signs: Vital Signs: Last Vital Signs Temp 97.8 F 07/04/21 05:59 Pulse 82 07/04/21 13:10 Resp 19 07/04/21 13:10 BP 126/74 07/04/21 13:10 Pulse Ox 97 07/04/21 13:10 Body Mass Index 23.7 Objective Data Active Medications Acetaminophen (Acetaminophen 325 Mg Tablet) 650 mg PO Q6H PRN PRN Reason: Pain, Mild (Pain Scale 1-3) Sodium Chloride () 1,000 mls @ 100 mls/hr IVCONT .Q10H [facility] Last Admin: 07/04/21 13:10 Dose: 100 mls/hr Documented by: YAZMIN Melatonin (Melatonin 3 Mg Tablet) 6 mg PO BEDTIME PRN PRN Reason: Insomnia Senna (Sennosides 8.6 Mg Tablet) 17.2 mg PO BEDTIME PRN PRN Reason: Constipation Sodium Chloride (0.9 % Sodium Chloride Flush 3 Ml Syringe) 3 ml IVFLUSH QSHIFT [facility] Last Admin: 07/04/21 07:09 Dose: 3 ml Documented by: YAZMIN Labs CBC & Chem 7: 07/04/21 03:27 07/04/21 08:23 Labs: Laboratory Results - last 24 hr 07/03/21 07/03/21 07/03/21 21:25 21:25 21:40 MCV 87.0 MCH 30.1 MCHC 34.6 RDW 13.3 Plt Count 355 MPV 10.0 Immature Gran % (Auto) 0.3 Neut % (Auto) 74.0 H Lymph % (Auto) 13.8 L [place] % (Auto) 11.3 H Eos % (Auto) 0.1 Baso % (Auto) 0.5 Lymph # (Auto) 2.0 [place] # (Auto) 1.7 H Eos # (Auto) 0.0 Baso # (Auto) 0.1 Abs Immat Gran (auto) 0.04 H Absolute Neuts (auto) 10.76 H Absolute Nucleated RBC 0.000 Nucleated RBC % (auto) 0.0 Smear Tech's Comments VERIFIED VBG pH VBG pCO2 VBG pO2 VBG HCO3 VBG O2 Saturation VBG Base Excess Sodium Anion Gap Estim Creat Clear Calc Estimated GFR Random Glucose Fasting Glucose Calcium Phosphorus Magnesium Total Bilirubin Direct Bilirubin AST ALT Alkaline Phosphatase Total Protein Albumin Urine Opiates Screen Not Detected Urine Fentanyl Screen Not Detected Acetaminophen Ur Barbiturates Screen Not Detected Ur Phencyclidine Scrn Not Detected Ur Amphetamines Screen Not Detected U Benzodiazepines Scrn Not Detected Urine Cocaine Screen Not Detected U Marijuana (THC) Screen Not Detected COVID-19 ([facility]) Negative COVID-19 Clin Com See Note 07/03/21 07/04/21 07/04/21 21:40 00:02 03:27 MCV 87.8 MCH 30.5 MCHC 34.8 RDW 13.3 Plt Count 268 MPV 9.9 Immature Gran % (Auto) 0.2 Neut % (Auto) 64.6 Lymph % (Auto) 20.2 [place] % (Auto) 13.9 H Eos % (Auto) 0.7 Baso % (Auto) 0.4 Lymph # (Auto) 2.5 [place] # (Auto) 1.7 H Eos # (Auto) 0.1 Baso # (Auto) 0.1 Abs Immat Gran (auto) 0.03 Absolute Neuts (auto) 7.83 Absolute Nucleated RBC 0.000 Nucleated RBC % (auto) 0.0 Smear Tech's Comments VBG pH 7.35 VBG pCO2 27 VBG pO2 69 VBG HCO3 15 L VBG O2 Saturation 92.0 VBG Base Excess -8.4 Sodium 152 H Anion Gap 25 H Estim Creat Clear Calc 67.1 Estimated GFR 48 Random Glucose 135 H Fasting Glucose Calcium 10.8 H D Phosphorus 4.4 Magnesium 2.5 Total Bilirubin 1.0 Direct Bilirubin 0.4 AST 17 ALT 14 Alkaline Phosphatase 79 Total Protein 8.6 H D Albumin 5.3 H D Urine Opiates Screen Urine Fentanyl Screen Acetaminophen Ur Barbiturates Screen Ur Phencyclidine Scrn Ur Amphetamines Screen U Benzodiazepines Scrn Urine Cocaine Screen U Marijuana (THC) Screen COVID-19 ([facility]) COVID-19 Clin Com 07/04/21 07/04/21 03:27 08:23 MCV MCH MCHC RDW Plt Count MPV Immature Gran % (Auto) Neut % (Auto) Lymph % (Auto) [place] % (Auto) Eos % (Auto) Baso % (Auto) Lymph # (Auto) [place] # (Auto) Eos # (Auto) Baso # (Auto) Abs Immat Gran (auto) Absolute Neuts (auto) Absolute Nucleated RBC Nucleated RBC % (auto) Smear Tech's Comments VBG pH VBG pCO2 VBG pO2 VBG HCO3 VBG O2 Saturation VBG Base Excess Sodium 152 H 148 H Anion Gap 16 14 Estim Creat Clear Calc 88.4 100.7 Estimated GFR > 60 > 60 Random Glucose 125 H Fasting Glucose 126 H Calcium 9.2 D 9.1 Phosphorus Magnesium Total Bilirubin 1.0 1.3 H Direct Bilirubin AST 14 16 ALT 12 13 Alkaline Phosphatase 62 D 59 Total Protein 6.9 6.7 Albumin 4.3 4.2 Urine Opiates Screen Urine Fentanyl Screen Acetaminophen < 1 Ur Barbiturates Screen Ur Phencyclidine Scrn Ur Amphetamines Screen U Benzodiazepines Scrn Urine Cocaine Screen U Marijuana (THC) Screen COVID-19 ([facility]) COVID-19 Clin Com Assessment and Plan (1) Hypernatremia: Status: Acute (2) CHANDNI (acute kidney injury): Status: Acute Assessment and Plan: 35-year-old male with a past medical history of PTSD, schizoaffective disorder presented to the hospital with a chief complaint of poor oral intake ER course:? Per ER team patient was brought in by the patient's sister because patient was not eating and drinking over past few days.? ER team also mentioned the patient mother reported that patient not been eating for many days and lost significant amount of weight; also reported that patient was searching in the patient's sister's phone on how to starve to . ER team has placed patient in Section 12. Sodium responding to IV free water repletion 1. Hyponatremia Continue IV fluids and check sodium in the a.m.. Patient now eating and drinking had labs returning to normal 2. Schizoaffective disorder with suicidality One-to-one sitter. Once sodium normalizes will consult Psychiatry 3.DESIREE: Resolved with fluids. Follow labs in a.m. Full code/Lovenox Quality Stroke Does the patient have a stroke diagnosis?: No VTE Prior VTE?: No VTE Risk Level:: Medical - low VTE Device Contraindication: N/A - Device Ordered VTE Drug Contraindication: Treatment Not Indicated
[2021-07-04 16:55] VITALS: BP 125/69; PULSE 85; RESP 18; O2SAT 99
--- NOTE | 2021-07-04 18:04 | P.PNIM_ITS ---
Subjective Subjective Date of Service: 07/05/21 Interval History: No acute issue since admit. Taking small a p.o. Review of Systems Denies chest pain Denies shortness of breath Denies nausea vomiting diarrhea Physical Exam Vital Signs: Vital Signs: Last Vital Signs Temp 97.8 F 07/04/21 05:59 Pulse 85 07/04/21 16:55 Resp 18 07/04/21 16:55 BP 125/69 07/04/21 16:55 Pulse Ox 99 07/04/21 16:55 Body Mass Index 23.7 Const: Other: No acute distress; affect flat Resp: Other: Clear to auscultation bilaterally no rales rhonchi or wheezes Cardio: Other: No S4; positive S1-S2; no S3 murmur rubs or gallops GI: Other: Soft nontender nondistended with normoactive bowel sounds. No appreciable hepatosplenomegaly Neuro: Other: Cranial nerves 2-12 grossly intact as tested. Motor is 5/5 all extremities. Sensation is intact. Cognition is appropriate Extrem: Other: No edema bilaterally Objective Data Active Medications Acetaminophen (Acetaminophen 325 Mg Tablet) 650 mg PO Q6H PRN PRN Reason: Pain, Mild (Pain Scale 1-3) Enoxaparin Sodium (Enoxaparin Sodium 40 Mg/0.4 Ml Syringe) 40 mg SUBCUT Q24H [facility] Sodium Chloride () 1,000 mls @ 100 mls/hr IVCONT .Q10H [facility] Last Admin: 07/04/21 13:10 Dose: 100 mls/hr Documented by: YAZMIN Melatonin (Melatonin 3 Mg Tablet) 6 mg PO BEDTIME PRN PRN Reason: Insomnia Senna (Sennosides 8.6 Mg Tablet) 17.2 mg PO BEDTIME PRN PRN Reason: Constipation Sodium Chloride (0.9 % Sodium Chloride Flush 3 Ml Syringe) 3 ml IVFLUSH QSHIFT [facility] Last Admin: 07/04/21 07:09 Dose: 3 ml Documented by: YAZMIN Labs CBC & Chem 7: 07/05/21 06:43 07/05/21 06:43 Labs: Laboratory Results - last 24 hr 07/03/21 07/03/21 07/03/21 21:25 21:25 21:40 MCV 87.0 MCH 30.1 MCHC 34.6 RDW 13.3 Plt Count 355 MPV 10.0 Immature Gran % (Auto) 0.3 Neut % (Auto) 74.0 H Lymph % (Auto) 13.8 L [place] % (Auto) 11.3 H Eos % (Auto) 0.1 Baso % (Auto) 0.5 Lymph # (Auto) 2.0 [place] # (Auto) 1.7 H Eos # (Auto) 0.0 Baso # (Auto) 0.1 Abs Immat Gran (auto) 0.04 H Absolute Neuts (auto) 10.76 H Absolute Nucleated RBC 0.000 Nucleated RBC % (auto) 0.0 Smear Tech's Comments VERIFIED VBG pH VBG pCO2 VBG pO2 VBG HCO3 VBG O2 Saturation VBG Base Excess Anion Gap Estim Creat Clear Calc Estimated GFR Random Glucose Fasting Glucose Calcium Phosphorus Magnesium Total Bilirubin Direct Bilirubin AST ALT Alkaline Phosphatase Total Protein Albumin Urine Opiates Screen Not Detected Urine Fentanyl Screen Not Detected Acetaminophen Ur Barbiturates Screen Not Detected Ur Phencyclidine Scrn Not Detected Ur Amphetamines Screen Not Detected U Benzodiazepines Scrn Not Detected Urine Cocaine Screen Not Detected U Marijuana (THC) Screen Not Detected COVID-19 ([facility]) Negative COVID-19 Clin Com See Note 07/03/21 07/04/21 07/04/21 21:40 00:02 03:27 MCV 87.8 MCH 30.5 MCHC 34.8 RDW 13.3 Plt Count 268 MPV 9.9 Immature Gran % (Auto) 0.2 Neut % (Auto) 64.6 Lymph % (Auto) 20.2 [place] % (Auto) 13.9 H Eos % (Auto) 0.7 Baso % (Auto) 0.4 Lymph # (Auto) 2.5 [place] # (Auto) 1.7 H Eos # (Auto) 0.1 Baso # (Auto) 0.1 Abs Immat Gran (auto) 0.03 Absolute Neuts (auto) 7.83 Absolute Nucleated RBC 0.000 Nucleated RBC % (auto) 0.0 Smear Tech's Comments VBG pH 7.35 VBG pCO2 27 VBG pO2 69 VBG HCO3 15 L VBG O2 Saturation 92.0 VBG Base Excess -8.4 Anion Gap 25 H Estim Creat Clear Calc 67.1 Estimated GFR 48 Random Glucose 135 H Fasting Glucose Calcium 10.8 H D Phosphorus 4.4 Magnesium 2.5 Total Bilirubin 1.0 Direct Bilirubin 0.4 AST 17 ALT 14 Alkaline Phosphatase 79 Total Protein 8.6 H D Albumin 5.3 H D Urine Opiates Screen Urine Fentanyl Screen Acetaminophen Ur Barbiturates Screen Ur Phencyclidine Scrn Ur Amphetamines Screen U Benzodiazepines Scrn Urine Cocaine Screen U Marijuana (THC) Screen COVID-19 ([facility]) COVID-19 Clin Com 07/04/21 07/04/21 03:27 08:23 MCV MCH MCHC RDW Plt Count MPV Immature Gran % (Auto) Neut % (Auto) Lymph % (Auto) [place] % (Auto) Eos % (Auto) Baso % (Auto) Lymph # (Auto) [place] # (Auto) Eos # (Auto) Baso # (Auto) Abs Immat Gran (auto) Absolute Neuts (auto) Absolute Nucleated RBC Nucleated RBC % (auto) Smear Tech's Comments VBG pH VBG pCO2 VBG pO2 VBG HCO3 VBG O2 Saturation VBG Base Excess Anion Gap 16 14 Estim Creat Clear Calc 88.4 100.7 Estimated GFR > 60 > 60 Random Glucose 125 H Fasting Glucose 126 H Calcium 9.2 D 9.1 Phosphorus Magnesium Total Bilirubin 1.0 1.3 H Direct Bilirubin AST 14 16 ALT 12 13 Alkaline Phosphatase 62 D 59 Total Protein 6.9 6.7 Albumin 4.3 4.2 Urine Opiates Screen Urine Fentanyl Screen Acetaminophen < 1 Ur Barbiturates Screen Ur Phencyclidine Scrn Ur Amphetamines Screen U Benzodiazepines Scrn Urine Cocaine Screen U Marijuana (THC) Screen COVID-19 ([facility]) COVID-19 Clin Com Assessment and Plan (1) CHANDNI (acute kidney injury): Status: Acute (2) Hypernatremia: Status: Acute (3) Schizoaffective disorder: Status: Chronic Assessment and Plan: 35-year-old male with a past medical history of PTSD, schizoaffective disorder presented to the hospital with a chief complaint of poor oral intake ER course:? Per ER team patient was brought in by the patient's sister because patient was not eating and drinking over past few days.? ER team also mentioned the patient mother reported that patient not been eating for many days and lost significant amount of weight; also reported that patient was searching in the patient's sister's phone on how to starve to . ER team has placed patient in Section 12. Sodium responding to IV free water repletion 1. Hyponatremia , resolved. Will DC IV fluids. Encourage oral intake ? ? 2. Schizoaffective disorder with suicidality ? ? Medically cleared for psych evaluation date and/or transfer. Will consult Psychiatry/care team 3.DESIREE: Resolved Full code/lovenox Quality Stroke Does the patient have a stroke diagnosis?: No VTE Prior VTE?: No VTE Risk Level:: Medical - low VTE Device Contraindication: N/A - Device Ordered VTE Drug Contraindication: Treatment Not Indicated
[2021-07-04 23:34] VITALS: BMI 21.2
[2021-07-04 23:42] VITALS: BP 124/85; PULSE 65; RESP 14; O2SAT 98
[2021-07-05 03:16] VITALS: BP 127/83; PULSE 79; RESP 18; TEMP 36.8; O2SAT 97
[2021-07-05 06:53] LABS: MANUAL DIFF FLAG NO
[2021-07-05 07:07] LABS: Basophils Percent Auto 0.5 % (0-2); Eosinophils Absolute Auto 0.3 X10*3/uL (0.0-0.4); Eosinophils Percent Auto 3.3 % (0-4); Hematocrit 43.1 % (42.0-52.0); Hemoglobin 14.7 g/dl (14.0-18.0); Imm Gran Abs Auto 0.03 X10*3/uL (0.00-0.03); Imm Gran Pct Auto 0.3 % (0.0-0.4); Lymphocytes Absolute Auto 2.4 X10*3/uL (1.2-4.9); Lymphocytes Percent Auto 27.4 % (20-40); Mean Corpuscular HGB Conc 34.1 g/dl (31.0-36.0); Mean Corpuscular Hemoglobin 30.1 pg (27.0-33.0); Mean Corpuscular Volume 88.3 fL (80.0-98.0); Mean Platelet Volume 9.9 fL (9.4-12.4); Monocytes Absolute Auto 0.9 X10*3/uL (0.1-1.2); Monocytes Percent Auto 10.1 % (2-11); Neutrophils Absolute Auto 5.08 x10*3/uL (2.0-8.3); Neutrophils Percent Auto 58.4 % (45-73); Platelet Count 211 X10*3/uL (160-400); Red Blood Count 4.88 X10*6/uL (4.60-5.80); Red Cell Distribution Width 13.2 % (11.0-16.0); White Blood Count 8.7 X10*3/uL (4.8-10.8)
[2021-07-05 07:17] LABS: Alanine Aminotransferase 11 U/L (0-40); Albumin Level 3.7 g/dL (3.5-5.0); Alkaline Phosphatase 53 U/L (39-117); Anion Gap 14 (12-20); Aspartate Amino Transferase 16 U/L (5-37); Bilirubin Total 1.5 mg/dL (0.0-1.0); Blood Urea Nitrogen 19 mg/dL (9-16); Calcium 8.7 mg/dL (8.4-10.2); Carbon Dioxide 23 mmol/L (22-29); Chloride 111 mmol/L (96-108); Creatinine Clr Calc Pharmacy 136.3; Estimated Glomerular Filt Rate > 60; Glucose Fasting 90 mg/dL (60-99); Potassium 3.4 mmol/L (3.3-5.1); Sodium 145 mmol/L (135-145); Total Protein 5.9 g/dL (6.5-8.0)
[2021-07-05 07:41] VITALS: BP 128/80; PULSE 68; RESP 18; TEMP 36.7; O2SAT 97
[2021-07-05] MEDS: Sodium Chloride 0.45 % 1,000 ML 100 ML IVCONT (08:46)
--- NOTE | 2021-07-05 08:51 | MHC.CDI.CONC ---
CDI Concurrent Query Documentation Clarification: PHYSICIAN'S DOCUMENTATION REQUEST Date of Query: 07/05/21 0851 Patient Name: Dilshad Cortez Admit Date: 07/03/21 Dear Doctor, A review of the medical record indicates additional documentation may be needed. Please review below and update the documentation accordingly. Clinical Indicators: Risk Factors/Clinical Indicators/Treatments BMI 21.2 ED: 07/03 - Evaluation notes: cachectic, malnourished, starvation ketoacidosis, poor oral intake, temporal wasting, loss of weight, dehydrated. Based on the above, could you clarify in the Progress Notes the appropriate diagnosis, if significant, that supports the above abnormalities and additional evaluation, monitoring, and/or treatment rendered: Cachectic Malnourished, mild or moderate (Treating, rule out) Labs indicate a diagnosis of (please specify) Other (please specify) Unable to determine Use of terms such as suspected, likely, concern for, or probable (associated with a specific diagnosis that is being evaluated, monitored, or treated as if it exists) are acceptable and can be coded in the inpatient setting, when documented at the time of discharge. Thank you, Steff Lim [facility], CDIS Extension: [phone] Please use your independent medical judgment in providing your response. THIS QUERY IS PART OF THE PERMANENT MEDICAL RECORD Provider Response: Other Other Diagnosis: Malnourished due to decreased calorie intake
--- NOTE | 2021-07-05 10:12 | MHC.CM.PN ---
met with pt who has a vick cruz ordered a psych eval dc plan per psych pt reports having no preadmission support servceis in place
[2021-07-05 11:56] VITALS: BP 121/75; PULSE 71; RESP 18; TEMP 36.5; O2SAT 100
--- NOTE | 2021-07-05 12:12 | MHC.CLN ---
Addendum entered by Eli Fleming, KHANG 07/05/21 12:30: agree with provider's assessment below Original Note: RE: CONSULT PT DID NOT EXPERIENCE SIGNIFICANT WT LOSS ACCORDING TO WT HISTORY FROM PRIOR ADMISSIONS PT'S UBW APPEARS TO BE 70-71 KG BASED ON PRIOR RECORDS PT'S WT ON 05/05/21 WAS 70 KG (1.5% NON SIGNIFICANT WT LOSS X 2 MONTHS) PT'S WT ON 04/14/21 WAS 71.8 KG (4% NON SIGNIFICANT WT LOSS X 3 MONTHS) PT'S WT ON 03/11/20 WAS 64.5 KG (PT EXPERIENCED WT GAIN) PT STATED DECREASED APPETITE STARTED RECENTLY BUT DID NOT GIVE A TIME FRAME SUPPLEMENT WAS OFFERED AND PT DENIED IT
[2021-07-05 15:15] VITALS: BP 128/84; PULSE 66; RESP 18; TEMP 36.6; O2SAT 98
--- NOTE | 2021-07-05 16:36 | PM.DS ---
DS: Providers Provider Date of Service: 07/05/21 Date of admission: 07/03/21 23:12 Primary care physician: Unknown Physician Consults: 07/03/21 21:13 BHN [Consult to Crisis] Stat Reason for consultation: behavioral dysregulation 07/03/21 21:57 Consult to Psychiatry Stat Consulting Provider: Psych Covering Reason for consultation: off medication and Resume Clozaril 07/03/21 23:13 Consult to Nephrology Routine Consulting Provider: Diaz Horton Reason for consultation: hypernatremia 07/05/21 07:35 Consult to Psychiatry Routine Consulting Provider: Psych Covering Reason for consultation: Suicidal ideation...section 12. Medically cleared DS: Diagnosis Discharge Diagnosis (1) CHANDNI (acute kidney injury): Status: Acute (2) Hypernatremia: Status: Acute (3) Schizoaffective disorder: Status: Chronic DS: Summary Hospital Course Hospital Course: 5-year-old male with a past medical history of PTSD, schizoaffective disorder presented to the hospital with a chief complaint of poor oral intake ER course:? Per ER team patient was brought in by the patient's sister because patient was not eating and drinking over past few days.? ER team also mentioned the patient mother reported that patient not been eating for many days and lost significant amount of weight; also reported that patient was searching in the patient's sister's phone on how to starve to . ER team has placed patient in Section 12. Sodium responding to IV free water repletion Hospital course Uneventful stay. Labs normalized with food/fluid intake. Medically acceptable for transfer to psych Time Spent with Patient Time attestation: Total time spent providing and/or coordinating discharge services: Discharge coordination time: Greater than 30 minutes Quality: Stroke Does the patient have a stroke diagnosis?: No Physical Exam Vital Signs: Vital Signs: Last Vital Signs Temp 97.8 F 07/05/21 15:15 Pulse 66 07/05/21 15:15 Resp 18 07/05/21 15:15 BP 128/84 07/05/21 15:15 Pulse Ox 98 07/05/21 15:15 Body Mass Index 21.2 Const: Other: No acute distress; affect flat Resp: Other: Clear to auscultation bilaterally no rales rhonchi or wheezes Cardio: Other: No S4; positive S1-S2; no S3 murmur rubs or gallops GI: Other: Soft nontender nondistended with normoactive bowel sounds. No appreciable hepatosplenomegaly Neuro: Other: Cranial nerves 2-12 grossly intact as tested. Motor is 5/5 all extremities. Sensation is intact. Cognition is appropriate Extrem: Other: No edema bilaterally DS: Data Data Completed and Pending Labs on day of discharge: Laboratory Results - last 24 hr 07/05/21 07/05/21 06:43 06:43 WBC 8.7 RBC 4.88 Hgb 14.7 Hct 43.1 MCV 88.3 MCH 30.1 MCHC 34.1 RDW 13.2 Plt Count 211 MPV 9.9 Immature Gran % (Auto) 0.3 Neut % (Auto) 58.4 Lymph % (Auto) 27.4 Bladen % (Auto) 10.1 Eos % (Auto) 3.3 Baso % (Auto) 0.5 Lymph # (Auto) 2.4 Bladen # (Auto) 0.9 Eos # (Auto) 0.3 Baso # (Auto) 0.0 Abs Immat Gran (auto) 0.03 Absolute Neuts (auto) 5.08 Absolute Nucleated RBC 0.000 Nucleated RBC % (auto) 0.0 Sodium 145 Potassium 3.4 Chloride 111 H Carbon Dioxide 23 Anion Gap 14 BUN 19 H Creatinine 0.73 Estim Creat Clear Calc 136.3 Estimated GFR > 60 Fasting Glucose 90 Calcium 8.7 Total Bilirubin 1.5 H AST 16 ALT 11 Alkaline Phosphatase 53 Total Protein 5.9 L Albumin 3.7 Discharge Plan Discharge Anticipated Discharge Date/Time: 07/05/21 16:33 Disposition: Xfer Other Referrals: Physician,Unknown J [Primary Care Provider] - 1 Week Discharge Medications: No Action No Known Home Meds RF: 0 Discharge Orders: Discharge Order (Routine); Ordered 07/05/21 Ordered By: Raghav Regalado Diet: advance to usual diet Activity on Discharge: As tolerated Forms: Patient Portal Discharge page Care Plan Goals: Med compliance Health Concerns: Maintain adequate oral intake Plan of Treatment: As per Dr. Black Assessment: Medically stable
== END 2021-07-05 17:03 | disposition other institution (70) | DRG 469 ==
LOC: HO.ED 22:36 → HO.EDOVER 23:34 → HO.IMC 07-04 21:36
PROVIDERS: Internal Medicine; Admitting Provider Hospitalist; Emergency Provider Student in an Organized Health Care Education/Training Program; Visit Provider Hospitalist
DX: N17.9 Acute kidney failure, unspecified (principal); E87.0 Hyperosmolality and hypernatremia; E46 Unspecified protein-calorie malnutrition; E83.52 Hypercalcemia; E87.2 Acidosis; F25.9 Schizoaffective disorder, unspecified; R45.851 Suicidal ideations; E86.0 Dehydration; F43.10 Post-traumatic stress disorder, unspecified; Z20.822 Contact with and (suspected) exposure to COVID-19; Z68.21 Body mass index [BMI] 21.0-21.9, adult; Z87.891 Personal history of nicotine dependence; Z79.899 Other long term (current) drug therapy
CPT/HCPCS: 36415; 80048; 80053; 80076; 80143; 80307; 82803; 83735; 84100; 85025; 87635; 93005; 99219; 99285

== ENCOUNTER 2021-07-05 16:31 | Inpatient (IN) | payer OTHER, SELFPAY ==
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
[2021-07-06 06:00] VITALS: BP 113/66; PULSE 61; RESP 18; TEMP 36.7; O2SAT 100
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
[2021-07-06 17:19] VITALS: BP 113/75; PULSE 63; RESP 16; TEMP 36.7; O2SAT 98
[2021-07-07 06:00] VITALS: BP 113/77; PULSE 68; RESP 18; TEMP 37.1; O2SAT 98
--- NOTE | 2021-07-07 16:57 | HO.PSYCHPN ---
Subjective Subjective Date of Service: 07/07/21 Reason For Visit: Suicidal Interim History: Patient sitting on the bed, wearing hospital pants but otherwise bare chested. He says he did not sleep last night because he has a lot on his mind and needed to think things through; he does not want sleep medication and says he overall slept about 5 hours today and feels rested. Patient said he is worried that he has made too many mistakes and That it may be too late to fix things with his family, implying that his persecutors will not give him another chance. marketing underwriter asked about the report that there were nooses hanging from his bed. He explained that there were no nooses but only neck ties and they were affixed to his bed because at night he attached is them to his wrists so he will not do inappropriate things, the goal being to keep his wrists at his chest. Mental Status Exam Mental Status Exam Narrative: Pt is alert and oriented; behavior is cooperative and calm; dressed in hospital pants, but w/out top; adequate hygiene; mood is described as ok affect constricted; eye contact adequate; Speech is normal rate, volume and prosody and not pressured; no psychomotor agitation; thought process is organized, linear and goal directed.? Thought content is on occupied by paranoid, persecutory delusions; SI as fulfillment of task assigned by persecutors; no HI.? Patient believes he receives messages various how that is, including media which he avoids. Denies AH. ?Patients insight and judgment are impaired Diagnostics Vital Signs (24Hr): Vital Signs - 24 hr 07/06/21 17:19 07/07/21 06:00 Temperature 98.1 F 98.8 F Pulse Rate 63 68 Respiratory Rate 16 18 Blood Pressure 113/75 113/77 Pulse Oximetry 98 98 Medications Medications Current Medications Acetaminophen (Acetaminophen 325 Mg Tablet) 650 mg PO Q6H PRN PRN Reason: Pain, Mild (Pain Scale 1-3) Al Hydroxide/Mg Hydroxide (Magnesium Hydrox/Alum Hydrox 30 Ml Oral.Susp) 30 ml PO Q6H PRN PRN Reason: Heartburn/Nausea Hydroxyzine HCl (Hydroxyzine Hcl 25 Mg Tablet) 25 mg PO BEDTIME PRN PRN Reason: Anxiety Magnesium Hydroxide (Milk Of Magnesia 30 Ml Oral.Susp) 30 ml PO DAILY PRN PRN Reason: Constipation Nicotine Polacrilex (Nicotine Polacrilex 2 Mg Gum) 2 mg BUCCAL Q2H PRN PRN Reason: Nicotine Cravings Trazodone HCl (Trazodone Hcl 50 Mg Tablet) 50 mg PO BEDTIME PRN PRN Reason: Insomnia Allergies Allergies Allergy/AdvReac Type Severity Reaction Status Date / Time olanzapine [OLANZAPINE] Allergy Severe FACIAL Verified 04/06/21 10:20 SWELLING Assessment & Plan Assessment & Plan (1) Schizoaffective disorder: Status: Chronic Code(s): F25.9 - Schizoaffective disorder, unspecified (2) Starvation ketoacidosis: Status: Resolved Code(s): E87.2 - Acidosis (3) PTSD (post-traumatic stress disorder): Status: Suspected Code(s): F43.10 - Post-traumatic stress disorder, unspecified Assessment and Plan: Impression: Patient is a 35-year-old male with history of schizophrenia, paranoid type who presents after her prolonged suicide by starvation, due to paranoid ideations in the face of going off medications, specifically clozapine. Patient was 1st admitted to the medical floor where he required fluid resuscitation, electrolytes replenished and treatment for starvation ketoacidosis, hypernatremia and acute kidney injury. Once resolved and medically cleared and transferred to psychiatric unit. Patient was recently discharged from the unit around 05/13/2021. 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 Patient has no insight. Currently refuses medications and remains on Section 12 B. he says he does not necessarily want to leave the hospital, nor does he want to stay but does not want to sign a CV worried that it will be unacceptable to his persecutors. Plan: Patient on 12 B Q 15 minutes checks for safety Patient requires inpatient admission and medications for safety; less signs a CV and is willing to take medications will petition the court for involuntary commitment and substituted judgment I spent minutes with the patient and/or on the patient floor today, greater than?50% of which was spent counseling/coordinating care. Reason for contiued inpatient stay Substantial Risk for: harm to self and inability to function
[2021-07-08 06:00] VITALS: BP 114/67; PULSE 60; RESP 20; TEMP 36.6; O2SAT 98
--- NOTE | 2021-07-08 09:11 | P.PNPSI_ITS ---
Subjective Subjective Date of Service: 07/08/21 Reason For Visit: Suicidal Interim History: Patient visibly anxious, grabbing his head, tearful trying to decide whether to sign into the unit on a CV or remain on 12 B. He said that he does not know what the right thing to do is, unsure what they [persecutors] want and what will appease them. Patient said that he is drinking and eating minimally, just enough. He is not sure what he will do post discharge, whether or not he is still supposed to starve himself to again unclear of the message. Patient was very forthcoming and discussed suicidality saying he is not sure if his imposed willful starvation was the same thing as him desiring to kill himself. He says clearly that he intended to starve himself to , knowing he would , again reiterating that this was what he believed would give his family the best chance at future security; he says there were times that he also wanted to himself but he is not sure where the two overlap. Patient asked for single room and said he thought that if he gets a single room in might be a sign that he is supposed to be in a single room and proved that he will be able to maintain himself in isolation. Eventually patient came to the conclusion that he will sign a CV and take Clozaril thinking this is perhaps either the right thing to do or at least does not amount to himself imposing his will against his persecutors. Patient also said short story writer could talk to his mothe r; he was about to sign a release of information but then asked if he could hold off on this for now which was fine. Patient asked short story writer the reason for the Clozaril to which short story writer reminded patient that the last time he was here, and also severely burdened and anguish over his perceived predicament, he found consistent relief from this burden while taking Clozaril Patient did sign a CV. Later he came to short story writer and said that he is now unsure of what he should do and was going to sign a 3 day notice. Mental Status Exam Mental Status Exam Narrative: ?Pt is alert and oriented; behavior is cooperative, sitting on bed, dressed in hospital pants, but shirtless;?unkempt hair and scruffy facial hair but adequate hygiene; mood is described as ok affect constricted at times other times in anguish about what to do; eye contact adequate; Speech is normal rate, volume and prosody and not pressured; no psychomotor agitation; thought process is organized, linear and goal directed.? Thought content is on occupied by paranoid, persecutory delusions; SI as fulfillment of task assigned to him by persecutors; no HI.? Patient believes he receives messages through various avenues , including media which he avoids. Denies AH. ?Patients insight and judgment are impaired Diagnostics Vital Signs (24Hr): Vital Signs - 24 hr 07/08/21 06:00 Temperature 97.9 F Pulse Rate 60 Respiratory Rate 20 Blood Pressure 114/67 Pulse Oximetry 98 Medications Medications Current Medications Acetaminophen (Acetaminophen 325 Mg Tablet) 650 mg PO Q6H PRN PRN Reason: Pain, Mild (Pain Scale 1-3) Al Hydroxide/Mg Hydroxide (Magnesium Hydrox/Alum Hydrox 30 Ml Oral.Susp) 30 ml PO Q6H PRN PRN Reason: Heartburn/Nausea Hydroxyzine HCl (Hydroxyzine Hcl 25 Mg Tablet) 25 mg PO BEDTIME PRN PRN Reason: Anxiety Magnesium Hydroxide (Milk Of Magnesia 30 Ml Oral.Susp) 30 ml PO DAILY PRN PRN Reason: Constipation Nicotine Polacrilex (Nicotine Polacrilex 2 Mg Gum) 2 mg BUCCAL Q2H PRN PRN Reason: Nicotine Cravings Trazodone HCl (Trazodone Hcl 50 Mg Tablet) 50 mg PO BEDTIME PRN PRN Reason: Insomnia Allergies Allergies Allergy/AdvReac Type Severity Reaction Status Date / Time olanzapine [OLANZAPINE] Allergy Severe FACIAL Verified 04/06/21 10:20 SWELLING Assessment & Plan Assessment & Plan (1) Schizoaffective disorder: Status: Chronic Code(s): F25.9 - Schizoaffective disorder, unspecified (2) Starvation ketoacidosis: Status: Resolved Code(s): E87.2 - Acidosis (3) PTSD (post-traumatic stress disorder): Status: Suspected Code(s): F43.10 - Post-traumatic stress disorder, unspecified Assessment and Plan: Impression: Patient is a 35-year-old male with history of schizophrenia, paranoid type who presents after her prolonged suicide by starvation, due to paranoid ideations in the face of going off medications, specifically clozapine. Patient was 1st admitted to the medical floor where he required fluid resuscitation, electrolytes replenished and treatment for starvation ketoacidosis, hyperna tremia and acute kidney injury. Once resolved and medically cleared and transferred to psychiatric unit. Patient was recently discharged from the unit around 05/13/2021. 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 Patient has no insight. Currently refuses medications and remains on Section 12 B. he says he does not necessarily want to leave the hospital, nor does he want to stay but does not want to sign a CV worried that it will be unacceptable to his persecutors. -patient remains in severe mental anguish over what is the right thing to do, very worried about making the wrong decision which will aggravate his persecutors and therefor put his family in future jeopardy; patient eventually decided to sign a CV but then later signed a 3 day notice. He agreed to take Clozarile but then was again ambivalent. Patient remains willing to self-harm to the point of suicide based on paranoid delusions that he must do so in order to save his family from future torment. Plan: Signed a CV on 07/08 but then later signed 3 day notice Q 15 minutes checks for safety Clozaril 25 mg at bedtime; patient may or may not take it Patient requires inpatient admission and medications for safety; patient signed CV and was willing to take medications however he is extremely ambivalent May need to petition the court for involuntary commitment and substituted judgment I spent minutes with the patient and/or on the patient floor today, greater than?50% of which was spent counseling/coordinating care. Reason for contiued inpatient stay Substantial Risk for: harm to self and inability to function
[2021-07-08 18:00] VITALS: BP 121/79; PULSE 57; TEMP 36.6
[2021-07-09 06:00] VITALS: BP 103/55; PULSE 60; RESP 18; TEMP 36.4; O2SAT 98
--- NOTE | 2021-07-09 13:36 | MHC.PM.REST ---
Restraint Documentation Date of Service: 07/09/21 Current Situation: After assessment of the patient, a review of the pertinent medical record and a discussion with nursing staff, I feel the patient requires a restrain intervention. Reaction To: significant change in mental state and concerns of safety Medical Condition: fair Behavioral State: Hallucinating, yelling, screaming and frightening others. Stating he is being mistreated and only wants to do right- unable to expand. Extended period of time and escalating. Not responding to support. Declined PO medications. Given history of significant starvation, suicidality, is potential danger to self and IM medications appropriate. Continued Need: one time hold for IM medication administration- haldol 5mg IM and ativan 2mg IM
[2021-07-09] MEDS: Haloperidol Lactate 5 MG/ML VIAL IM (14:10)
--- NOTE | 2021-07-09 14:10 | HO.PSYCHPN ---
Subjective Subjective Date of Service: 07/09/21 Reason For Visit: Suicidal Interim History: Hallucinating, yelling, screaming and frightening others. Stating he is being mistreated and only wants to do right- unable to expand. Extended period of time and escalating. Not responding to support. Declined PO medications. Given history of significant starvation, suicidality, is potential danger to self and IM medications appropriate- at 2pm, gave haldol 5mg, ativan 2mg and cogentin 1mg. Was seen by data analyst report writer at the time. No evidence of medical concerns noted Medication Compliance: No Side effects from medications: No Attending Groups: No Review of Systems Acute medical concerns: No Review of Systems Review of Systems unable to engage for complete evaluation Mental Status Exam Mental Status Exam Narrative: Hallucinating, yelling, screaming . In bed. Shirt off. Declining interview. Stating he is being mistreated and only wants to do right- unable to expand. Extended period of time and escalating. Inisght and judgment appear poor Was seen by data analyst report writer at the time. No evidence of medical concerns noted Diagnostics Vital Signs (24Hr): Vital Signs - 24 hr 07/08/21 18:00 07/09/21 06:00 Temperature 97.9 F 97.6 F Pulse Rate 57 60 Respiratory Rate 18 Blood Pressure 121/79 103/55 L Pulse Oximetry 98 Medications Medications Current Medications Acetaminophen (Acetaminophen 325 Mg Tablet) 650 mg PO Q6H PRN PRN Reason: Pain, Mild (Pain Scale 1-3) Al Hydroxide/Mg Hydroxide (Magnesium Hydrox/Alum Hydrox 30 Ml Oral.Susp) 30 ml PO Q6H PRN PRN Reason: Heartburn/Nausea Clozapine (Clozapine 25 Mg Tablet) 25 mg PO BEDTIME FIDEL Last Admin: 07/08/21 20:46 Dose: Not Given Documented by: Haloperidol Lactate (Haloperidol Lactate 5 Mg/Ml Vial) 5 mg IM ONCE ONE Stop: 07/09/21 13:34 Hydroxyzine HCl (Hydroxyzine Hcl 25 Mg Tablet) 25 mg PO BEDTIME PRN PRN Reason: Anxiety Lorazepam (Lorazepam 2 Mg/Ml Vial) 2 mg IM ONCE ONE Stop: 07/09/21 13:34 Magnesium Hydroxide (Milk Of Magnesia 30 Ml Oral.Susp) 30 ml PO DAILY PRN PRN Reason: Constipation Nicotine Polacrilex (Nicotine Polacrilex 2 Mg Gum) 2 mg BUCCAL Q2H PRN PRN Reason: Nicotine Cravings Trazodone HCl (Trazodone Hcl 50 Mg Tablet) 50 mg PO BEDTIME PRN PRN Reason: Insomnia Allergies Allergies Allergy/AdvReac Type Severity Reaction Status Date / Time olanzapine [OLANZAPINE] Allergy Severe FACIAL Verified 04/06/21 10:20 SWELLING Assessment & Plan Assessment & Plan (1) Schizoaffective disorder: Status: Chronic Code(s): F25.9 - Schizoaffective disorder, unspecified Assessment and Plan: Declining meds. 3 day notice has been submitted. IM medication given / medication restraint on 07/09- Hallucinating, yelling, screaming and frightening others. Stating he is being mistreated and only wants to do right- unable to expand. Extended period of time and escalating. Not responding to support. Declined PO medications. Given history of significant starvation, suicidality, is potential danger to self and IM medications appropriate- haldol 5mg, ativan 2mg and cogentin 1mg. Was seen by data analyst report writer at the time (2pm). No evidence of medical concerns noted (2) Starvation ketoacidosis: Status: Resolved Code(s): E87.2 - Acidosis (3) PTSD (post-traumatic stress disorder): Status: Suspected Code(s): F43.10 - Post-traumatic stress disorder, unspecified Assessment and Plan: Impression: Patient is a 35-year-old male with history of schizophrenia, paranoid type who presents after her prolonged suicide by starvation, due to paranoid ideations in the face of going off medications, specifically clozapine. Patient was 1st admitted to the medical floor where he required fluid resuscitation, electrolytes replenished and treatment for starvation ketoacidosis, hypernatremia and acute kidney injury. Once resolved and medically cleared and transferred to psychiatric unit. Patient was recently discharged from the unit around 05/13/2021. 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 Patient has no insight. Currently refuses medications and remains on Section 12 B. he says he does not necessarily want to leave the hospital, nor does he want to stay but does not want to sign a CV worried that it will be unacceptable to his persecutors. -patient remains in severe mental anguish over what is the right thing to do, very worried about making the wrong decision which will aggravate his persecutors and therefor put his family in future jeopardy; patient eventually decided to sign a CV but then later signed a 3 day notice. He agreed to take Clozarile but then was again ambivalent. Patient remains willing to self-harm to the point of suicide based on paranoid delusions that he must do so in order to save his family from future torment. Plan: Signed a CV on 07/08 but then later signed 3 day notice Q 15 minutes checks for safety Clozaril 25 mg at bedtime; patient may or may not take it Patient requires inpatient admission and medications for safety; patient signed CV and was willing to take medications however he is extremely ambivalent May need to petition the court for involuntary commitment and substituted judgment I spent minutes with the patient and/or on the patient floor today, greater than?50% of which was spent counseling/coordinating care. Reason for contiued inpatient stay Substantial Risk for: harm to self
[2021-07-09] MEDS: Benztropine Mesylate 2 MG/2 ML VIAL 1 MG IM (14:19)
[2021-07-09] MEDS: LORazepam 2 MG/ML VIAL IM (14:19)
--- NOTE | 2021-07-09 14:47 | PC.NURSE ---
PT RECEIVED A MEDICATION RESTRAINT OF HALDOL, ATIVAN, AND COGENTIN IM AT 1400 ON . PT BEGAN SCREAMING IN HIS ROOM. WHEN PC WENT INTO HIS ROOM, HE SCREAMED ITS THE VOICES IN MY HEAD, GET THE FUCK OUT . PT REFUSED A QUIET SPACE, REFUSED PRN MEDS, AND REFUSED TO SPEAK TO STAFF. PT CCOULD NOT MAINTAIN BEHAVIORAL CONTROL AND CONTINUED TO SCREAM. PT BEGAN PUNCHING THE WALL. WHEN TOLD IF HE WOULDNT TAKE PO MEDS HE WOULD NEED AN INJECTION, PT RESPONDED I DONT GIVE A FUCK WHEAT YOU GIVE ME BY FORCE IM NOT TAKING MEDS . PT ACCEPTED THE IM WITH ENCOURAGEMENT FROM STAFF AND SECURITY. PT HAS BEEN IN BEHAVIORAL CONTROL SINCE. PT WAS MOVED TO A PRIVATE ROOM.
[2021-07-10 06:00] VITALS: BP 111/67; PULSE 57; RESP 18; TEMP 36.7; O2SAT 99
--- NOTE | 2021-07-10 12:34 | HO.PSYCHPN ---
Subjective Subjective Date of Service: 07/10/21 Reason For Visit: Suicidal Medical Problems Affecting Mental Status: No Interim History: Patient refused to engage with personal lines underwriter. Guarded internally preoccupied. As per staff he did have 1 outburst this morning where he was yelling which is in the context of being encouraged to eat breakfast. He has has been refusing medications. Doing okay on 5 minute checks and now single room Medication Compliance: No Side effects from medications: No Attending Groups: No Review of Systems Acute medical concerns: No Mental Status Exam Mental Status Exam Narrative: Hospital clothing. Poor self-care. Irritable. Internally preoccupied. No evidence of SI or HI. Insight judgment limited Diagnostics Vital Signs (24Hr): Vital Signs - 24 hr 07/10/21 06:00 Temperature 98.0 F Pulse Rate 57 Respiratory Rate 18 Blood Pressure 111/67 Pulse Oximetry 99 Medications Medications Current Medications Acetaminophen (Acetaminophen 325 Mg Tablet) 650 mg PO Q6H PRN PRN Reason: Pain, Mild (Pain Scale 1-3) Al Hydroxide/Mg Hydroxide (Magnesium Hydrox/Alum Hydrox 30 Ml Oral.Susp) 30 ml PO Q6H PRN PRN Reason: Heartburn/Nausea Clozapine (Clozapine 25 Mg Tablet) 25 mg PO BEDTIME FIDEL Last Admin: 07/10/21 00:48 Dose: Not Given Documented by: Hydroxyzine HCl (Hydroxyzine Hcl 25 Mg Tablet) 25 mg PO BEDTIME PRN PRN Reason: Anxiety Magnesium Hydroxide (Milk Of Magnesia 30 Ml Oral.Susp) 30 ml PO DAILY PRN PRN Reason: Constipation Nicotine Polacrilex (Nicotine Polacrilex 2 Mg Gum) 2 mg BUCCAL Q2H PRN PRN Reason: Nicotine Cravings Trazodone HCl (Trazodone Hcl 50 Mg Tablet) 50 mg PO BEDTIME PRN PRN Reason: Insomnia Allergies Allergies Allergy/AdvReac Type Severity Reaction Status Date / Time olanzapine [OLANZAPINE] Allergy Severe FACIAL Verified 04/06/21 10:20 SWELLING Assessment & Plan Assessment & Plan (1) Schizoaffective disorder: Status: Chronic Code(s): F25.9 - Schizoaffective disorder, unspecified (2) Starvation ketoacidosis: Status: Resolved Code(s): E87.2 - Acidosis (3) PTSD (post-traumatic stress disorder): Status: Suspected Code(s): F43.10 - Post-traumatic stress disorder, unspecified Assessment and Plan: Impression: Patient is a 35-year-old male with history of schizophrenia, paranoid type who presents after her prolonged suicide by starvation, due to paranoid ideations in the face of going off medications, specifically clozapine. Patient was 1st admitted to the medical floor where he required fluid resuscitation, electrolytes replenished and treatment for starvation ketoacidosis, hypernatremia and acute kidney injury. Once resolved and medically cleared and transferred to psychiatric unit. Patient was recently discharged from the unit around 05/13/2021. 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 Patient has no insight. Currently refuses medications and remains on Section 12 B. he says he does not necessarily want to leave the hospital, nor does he want to stay but does not want to sign a CV worried that it will be unacceptable to his persecutors. -patient remains in severe mental anguish over what is the right thing to do, very worried about making the wrong decision which will aggravate his persecutors and therefor put his family in future jeopardy; patient eventually decided to sign a CV but then later signed a 3 day notice. He agreed to take Clozarile but then was again ambivalent. Patient remains willing to self-harm to the point of suicide based on paranoid delusions that he must do so in order to save his family from future torment. Plan: Signed a CV on 07/08 but then later signed 3 day notice Q 15 minutes checks for safety Clozaril 25 mg at bedtime; patient may or may not take it Patient requires inpatient admission and medications for safety; patient signed CV and was willing to take medications however he is extremely ambivalent May need to petition the court for involuntary commitment and substituted judgment 07/10/2021: No overall changes to primary team treatment plan. Is refusing medications. Did require IM medications 07/09/2021. Team weighing up potential for petition in court for involuntary commitment and treatment I spent minutes with the patient and/or on the patient floor today, greater than?50% of which was spent counseling/coordinating care. Reason for contiued inpatient stay Substantial Risk for: inability to function
[2021-07-10 16:39] VITALS: BP 111/86; PULSE 106; RESP 17; TEMP 36.4; O2SAT 97
[2021-07-11 06:00] VITALS: BP 104/59; PULSE 73; RESP 18; TEMP 37.1; O2SAT 99
--- NOTE | 2021-07-11 10:19 | HO.PSYCHPN ---
Subjective Subjective Date of Service: 07/11/21 Reason For Visit: Suicidal Subjective Notes: Gutierres Warning (repeated ) Interim History: Patient reports he had a rough weekend. He shares that he remains very confused and deeply distressed about making the ?right decisions. ? He says he will continue to do what is necessary to help his family but does not want to elaborate. Patient asked about the process for petitioning the court and what this typewriter ribbon winder might share; typewriter ribbon winder repeated the Gutierres warning and gave patient an overview to which he understood. Patient shared that he has been thinking about trying again to starve himself to but says he doubts he will be able to do so here since he is being monitored. He also said that he had thoughts of hitting his head on the wall to cause trauma however patient said that he will not do this. Gift Manager asked about patient's broken water pitcher and his threat to cut himself with it. Patient said that he did break his water pitcher in a moment of anger and frustration, however the cutting he received on his hand was minor and said it was accidental and that he had no plans or intention to self-harm. He volunteered that in the past he has looked up how to bleed himself to by slicing his neck which he learned to was very difficult and has never tried. Gift Manager asked about patient's references to hearing voices over the weekend. He denied having auditory hallucinations. He said that done recently as an outpatient he had a visual hallucination but said this occurred after he had been up for 18 hours straight and had little (no) food intake. Mental Status Exam Mental Status Exam Narrative: Pt is alert and oriented; behavior is cooperative, standing in room by himself, dressed in hospital pants, tshirt; unkempt hair and scruffy facial hair; mood is described as rough weekend affect constricted; eye contact adequate; Speech is normal rate, volume and prosody and not pressured; no psychomotor agitation; thought process is organized, linear and goal directed.? Thought content is occupied by paranoid, persecutory delusions; SI by starvation as fulfillment of task assigned to him by persecutors; no HI.? Patient believes he receives messages through various avenues , including media which he avoids. Denies [facility]. ?Patients insight and judgment are impaired Diagnostics Vital Signs (24Hr): Vital Signs - 24 hr 07/10/21 16:39 07/11/21 06:00 Temperature 97.6 F 98.8 F Pulse Rate 106 H 73 Respiratory Rate 17 18 Blood Pressure 111/86 104/59 L Pulse Oximetry 97 99 Medications Medications Current Medications Acetaminophen (Acetaminophen 325 Mg Tablet) 650 mg PO Q6H PRN PRN Reason: Pain, Mild (Pain Scale 1-3) Al Hydroxide/Mg Hydroxide (Magnesium Hydrox/Alum Hydrox 30 Ml Oral.Susp) 30 ml PO Q6H PRN PRN Reason: Heartburn/Nausea Clozapine (Clozapine 25 Mg Tablet) 25 mg PO BEDTIME FIDEL Last Admin: 07/10/21 21:39 Dose: Not Given Documented by: Hydroxyzine HCl (Hydroxyzine Hcl 25 Mg Tablet) 25 mg PO BEDTIME PRN PRN Reason: Anxiety Magnesium Hydroxide (Milk Of Magnesia 30 Ml Oral.Susp) 30 ml PO DAILY PRN PRN Reason: Constipation Nicotine Polacrilex (Nicotine Polacrilex 2 Mg Gum) 2 mg BUCCAL Q2H PRN PRN Reason: Nicotine Cravings Trazodone HCl (Trazodone Hcl 50 Mg Tablet) 50 mg PO BEDTIME PRN PRN Reason: Insomnia Allergies Allergies Allergy/AdvReac Type Severity Reaction Status Date / Time olanzapine [OLANZAPINE] Allergy Severe FACIAL Verified 04/06/21 10:20 SWELLING Assessment & Plan Assessment & Plan (1) Schizoaffective disorder: Status: Chronic Code(s): F25.9 - Schizoaffective disorder, unspecified (2) Starvation ketoacidosis: Status: Resolved Code(s): E87.2 - Acidosis (3) PTSD (post-traumatic stress disorder): Status: Suspected Code(s): F43.10 - Post-traumatic stress disorder, unspecified Assessment and Plan: Impression: Patient is a 35-year-old male with history of schizophrenia, paranoid type who presents after her prolonged suicide by starvation, due to paranoid ideations in the face of going off medications, specifically clozapine. Patient was 1st admitted to the medical floor where he required fluid resuscitation, electrolytes replenished and treatment for starvation ketoacidosis, hypernatremia and acute kidney injury. Once resolved and medically cleared and transferred to psychiatric unit. Patient was recently discharged from the unit around 05/13/2021. 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 Patient has no insight. Currently refuses medications and remains on Section 12 B. he says he does not necessarily want to leave the hospital, nor does he want to stay but does not want to sign a CV worried that it will be unacceptable to his persecutors. -patient remains in severe mental anguish over what is the right thing to do, very worried about making the wrong decision which will aggravate his persecutors and therefor put his family in future jeopardy; patient eventually decided to sign a CV but then later signed a 3 day notice. He agreed to take Clozaril but then was again ambivalent. Patient remains willing to self-harm to the point of suicide based on paranoid delusions that he must do so in order to save his family from future torment. -over the weekend patient was screaming, had a control and required medication restraint 07/11 patient remains with joel paranoid, persecutory delusions, thoughts to starve himself to based on paranoid delusion, no insight and impaired judgment. -currently he is eating and drinking a Plan: signed 3 day notice -Will petition the court for involuntary commitment and substituted judgment Q 15 minutes checks for safety Clozaril 25 mg at bedtime; patient may or may not take it Patient requires inpatient admission and medications for safety; I spent minutes with the patient and/or on the patient floor today, greater than?50% of which was spent counseling/coordinating care. Reason for contiued inpatient stay Substantial Risk for: harm to self
[2021-07-11 12:37] VITALS: BP 111/72; O2SAT 88
[2021-07-11 17:20] VITALS: BP 130/75; PULSE 101; TEMP 36.4
[2021-07-11] MEDS: cloZAPine 25 MG TABLET PO (23:59)
[2021-07-12 06:00] VITALS: BP 112/78; PULSE 74; RESP 18; TEMP 36.8; O2SAT 98
[2021-07-12 08:38] LABS: Neut%MD 42.5 %; Neutrophils Absolute Auto 2.9 x10*3/uL (2.0-8.3); WBCANC 6.9 X10*3/uL
[2021-07-12 18:00] VITALS: BP 108/70; PULSE 85; RESP 16; TEMP 36.3; O2SAT 100
--- NOTE | 2021-07-12 18:40 | PC.NURSE ---
Pt asked to speak with t/w and was hesitant to start the conversation. Asked for privacy in his room and was visibly anxious. Pt was sitting cross legged on his bed while speaking - continuously grabbing his hair and rocking back and forth. He asked t/w how does a breach of confidentiality work here? T/w asked him to elaborate on his question. After minutes of not understanding where he was going with the conversation. He began to touch on whether anyone would be able to look into his past medical records . So lets say...I leave here and something happened to me would they be able to look into my records? . T/w made him aware that all staff are mandated reporters and if it has to do with keeping him safe then staff is obligated to speak up. While he was grabbing his hair he kept mentioning his records. Let's just say hypothetically someone killed themselves outside of here would they be able to have access? T/w told him that it's concerning that he is speaking on terms of SI and he quickly asked if t/w would write about this - although he was only giving an example per pt. Pt contracted for safety. Denied all psychiatric symptoms, but seems distressed about past hx which he would not elaborate on.
[2021-07-12] MEDS: cloZAPine 25 MG TABLET PO (20:23)
--- NOTE | 2021-07-12 20:57 | HO.PSYCHPN ---
Subjective Subjective Date of Service: 07/12/21 Reason For Visit: Suicidal Interim History: pt resting in room on approach. Pt said he decided to take Clozaril and rescind his 3 day; he said he decided this was the right thing to do. He said he would sign another 3 day but also that he was willing to stay an take medication. No complaints; no requests. Pt otherwise had few words to say. Mental Status Exam Mental Status Exam Narrative: Pt is alert and oriented; behavior is marginally cooperative; unkempt hair and scruffy facial hair; mood is described as ok affect constricted; eye contact adequate; Speech is normal rate, volume and prosody and not pressured; no psychomotor agitation; thought process is organized, linear and goal directed.? Thought content is occupied by paranoid, persecutory delusions; intermittent SI by starvation as fulfillment of task assigned to him by persecutors; no HI.? Patient believes he receives messages through various avenues , including media which he avoids. Denies AvH. ?Patients insight and judgment are impaired Diagnostics Vital Signs (24Hr): Vital Signs - 24 hr 07/12/21 06:00 07/12/21 18:00 Temperature 98.3 F 97.3 F Pulse Rate 74 85 Respiratory Rate 18 16 Blood Pressure 112/78 108/70 Pulse Oximetry 98 100 Labs Labs: Laboratory Results - last 48 hr 07/12/21 08:23 Absolute Neuts (auto) 2.9 Medications Medications Current Medications Acetaminophen (Acetaminophen 325 Mg Tablet) 650 mg PO Q6H PRN PRN Reason: Pain, Mild (Pain Scale 1-3) Al Hydroxide/Mg Hydroxide (Magnesium Hydrox/Alum Hydrox 30 Ml Oral.Susp) 30 ml PO Q6H PRN PRN Reason: Heartburn/Nausea Clozapine (Clozapine 25 Mg Tablet) 25 mg PO BEDTIME [facility]IDEL Last Admin: 07/12/21 20:23 Dose: 25 mg Documented by: Hydroxyzine HCl (Hydroxyzine Hcl 25 Mg Tablet) 25 mg PO BEDTIME PRN PRN Reason: Anxiety Magnesium Hydroxide (Milk Of Magnesia 30 Ml Oral.Susp) 30 ml PO DAILY PRN PRN Reason: Constipation Nicotine Polacrilex (Nicotine Polacrilex 2 Mg Gum) 2 mg BUCCAL Q2H PRN PRN Reason: Nicotine Cravings Trazodone HCl (Trazodone Hcl 50 Mg Tablet) 50 mg PO BEDTIME PRN PRN Reason: Insomnia Allergies Allergies Allergy/AdvReac Type Severity Reaction Status Date / Time olanzapine [OLANZAPINE] Allergy Severe FACIAL Verified 04/06/21 10:20 SWELLING Assessment & Plan Assessment & Plan (1) Schizoaffective disorder: Status: Chronic Code(s): F25.9 - Schizoaffective disorder, unspecified (2) Starvation ketoacidosis: Status: Resolved Code(s): E87.2 - Acidosis (3) PTSD (post-traumatic stress disorder): Status: Suspected Code(s): F43.10 - Post-traumatic stress disorder, unspecified Assessment and Plan: Impression: Patient is a 35-year-old male with history of schizophrenia, paranoid type who presents after her prolonged suicide by starvation, due to paranoid ideations in the face of going off medications, specifically clozapine. Patient was 1st admitted to the medical floor where he required fluid resuscitation, electrolytes replenished and treatment for starvation ketoacidosis, hypernatremia and acute kidney injury. Once resolved and medically cleared and transferred to psychiatric unit. Patient was recently discharged from the unit around 05/13/2021. 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 Patient has no insight. Currently refuses medications and remains on Section 12 B. he says he does not necessarily want to leave the hospital, nor does he want to stay but does not want to sign a CV worried that it will be unacceptable to his persecutors. -patient remains in severe mental anguish over what is the right thing to do, very worried about making the wrong decision which will aggravate his persecutors and therefor put his family in future jeopardy; patient eventually decided to sign a CV but then later signed a 3 day notice. He agreed to take Clozaril but then was again ambivalent. Patient remains willing to self-harm to the point of suicide based on paranoid delusions that he must do so in order to save his family from future torment. -over the weekend patient was screaming, had a control and required medication restraint 07/11 patient remains with joel paranoid, persecutory delusions, thoughts to starve himself to based on paranoid delusion, no insight and impaired judgment. -currently he is eating and drinking but only minimally 07/12 pt decided to take Clozaril Plan: signs and retracts 3 day notice, ostensibly to leave himself the option of court, though he seems to be willing to remain on unit and take med -othewise, Will petition the court for involuntary commitment and substituted judgment Q 15 minutes checks for safety Clozaril 25 mg at bedtime; will titrate Patient requires inpatient admission and medications for safety; I spent minutes with the patient and/or on the patient floor today, greater than?50% of which was spent counseling/coordinating care. Reason for contiued inpatient stay Substantial Risk for: harm to self
--- NOTE | 2021-07-13 10:14 | P.PNPSI_ITS ---
Subjective Subjective Date of Service: 07/13/21 Reason For Visit: Suicidal Interim History: screaming in room and then in hallway; some mild head banging. Pt refused PO prn meds, swore at staff. He was redirectable and stopped behaviors. Later marketing writer met with patient in his room which is bare of virtually everything including sheets, blanket and pillow. Patient at 1st said he has had a ?bad morning ? but did not want to discuss it. Garbage Collector Driver inquired about general nature, and patient grabbed his head and started screaming I do not know what to do... All I want is for someone to take my life... I can't take this anymore... There is no fucking way out there is no fucking way out there is no fucking way out... Patient's volume intensity was enough to bring several staff members rushing to his room to check on marketing writer safety. Patient with terrified, anguish affect remain sitting on the bed grabbing his head and then starting to cry. Garbage Collector Driver said that patient's best hope is to remain on the unit and let himself be treated. Patient said okay... Okay.. I'll stay... i'll take medication. Patient agreed to rescind 3 day notice. Patient agreed to take scheduled clonazepam while Chito a real is being titrated. considered q5 min checks and discussed with staff however, it was agreed that this will do more to agitate him than otherwise; pt is now willing to engage in treatment Mental Status Exam Mental Status Exam Narrative: ?Pt is alert and oriented; behavior is severely agitated; unkempt hair and scruffy facial hair; mood is severely anguished; affect severe anguish; no eye contact ; Speech is screaming; psychomotor agitation present; thought process is organized, linear and goal directed.? Thought content is overwhelmed with paranoid, persecutory delusions and desire to be ; suicidal ideation; intermittent SI by starvation as fulfillment of task assigned to him by persecutors; no HI.? Patient believes he receives messages through various avenues , including media which he avoids. Denies AvH. ?Patients insight and judgment are impaired Diagnostics Vital Signs (24Hr): Vital Signs - 24 hr 07/12/21 18:00 Temperature 97.3 F Pulse Rate 85 Respiratory Rate 16 Blood Pressure 108/70 Pulse Oximetry 100 Labs Labs: Laboratory Results - last 48 hr 07/12/21 08:23 Absolute Neuts (auto) 2.9 Medications Medications Current Medications Acetaminophen (Acetaminophen 325 Mg Tablet) 650 mg PO Q6H PRN PRN Reason: Pain, Mild (Pain Scale 1-3) Al Hydroxide/Mg Hydroxide (Magnesium Hydrox/Alum Hydrox 30 Ml Oral.Susp) 30 ml PO Q6H PRN PRN Reason: Heartburn/Nausea Clozapine (Clozapine 25 Mg Tablet) 25 mg PO BEDTIME [facility] Last Admin: 07/12/21 20:23 Dose: 25 mg Documented by: Hydroxyzine HCl (Hydroxyzine Hcl 25 Mg Tablet) 25 mg PO BEDTIME PRN PRN Reason: Anxiety Magnesium Hydroxide (Milk Of Magnesia 30 Ml Oral.Susp) 30 ml PO DAILY PRN PRN Reason: Constipation Nicotine Polacrilex (Nicotine Polacrilex 2 Mg Gum) 2 mg BUCCAL Q2H PRN PRN Reason: Nicotine Cravings Trazodone HCl (Trazodone Hcl 50 Mg Tablet) 50 mg PO BEDTIME PRN PRN Reason: Insomnia Allergies Allergies Allergy/AdvReac Type Severity Reaction Status Date / Time olanzapine [OLANZAPINE] Allergy Severe FACIAL Verified 04/06/21 10:20 SWELLING Assessment & Plan Assessment & Plan (1) Schizoaffective disorder: Status: Chronic Code(s): F25.9 - Schizoaffective disorder, unspecified (2) Starvation ketoacidosis: Status: Resolved Code(s): E87.2 - Acidosis (3) PTSD (post-traumatic stress disorder): Status: Suspected Code(s): F43.10 - Post-traumatic stress disorder, unspecified Assessment and Plan: Impression: Patient is a 35-year-old male with history of schizophrenia, paranoid type who presents after her prolonged suicide by starvation, due to paranoid ideations in the face of going off medications, specifically clozapine. Patient was 1st admitted to the medical floor where he required fluid resuscitation, electrolytes replenished and treatment for starvation ketoacidosis, hypernatremia and acute kidney injury. Once resolved and medically cleared and transferred to psychiatric unit. Patient was recently discharged from the unit around 05/13/2021. 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 Patient has no insight. Currently refuses medications and remains on Section 12 B. he says he does not necessarily want to leave the hospital, nor does he want to stay but does not want to sign a CV worried that it will be unacceptable to his persecutors. -patient remains in severe mental anguish over what is the right thing to do, very worried about making the wrong decision which will aggravate his persecutors and therefor put his family in future jeopardy; patient eventually decided to sign a CV but then later signed a 3 day notice. He agreed to take Clozaril but then was again ambivalent. Patient remains willing to self-harm to the point of suicide based on paranoid delusions that he must do so in order to save his family from future torment. -over the weekend patient was screaming, had a control and required medication r estraint 07/11 patient remains with joel paranoid, persecutory delusions, thoughts to starve himself to based on paranoid delusion, no insight and impaired judgment. -currently he is eating and drinking but only minimally 07/12 pt decided to take Clozaril 07/13: Patient is tormented seems to have reached a boiling point and he agreed to take Clozaril and sign in Barrier to discharge: Patient is floridly psychotic and remains actively suicidal; he requires locked unit to resolve symptoms with medication management. Plan: signs and retracts 3 day notice, ostensibly to leave himself the option of court, though he seems to be willing to remain on unit and take med -othewise, Will petition the court for involuntary commitment and substituted judgment Q 15 minutes checks for safety Clozaril 12.5mg Daily Clozaril 25 mg at bedtime; will titrate as fast as clinically tolerated (pt did have clozapine toxicity at last admission with titration; it was reduced and then well tolerated but will be cautious) Will schedule clonazepam 0.5 mg b.i.d. for anxiety while Clozaril is being titrated Micromedex: 1) Rapid titration in hospitalized patients: Day 1, 50 mg orally followed by 50 to 100 mg as needed every 6 hours (up to an additional 150 mg). Thereafter, may increase daily dosage in increments of 50 to 100 mg. Mean dosage on day 1 was 207 mg/day in patients with prior clozapine exposure and 59.7 mg without prior exposure. Mean titration over 5.44 days to a dosage of 260 mg/day, lead to a mean dosage at discharge of 322 mg/day Sarika HEBERT, Peggy Oliveros, Wagner FLYNN, et al: Rapid clozapine titration in patients with treatment refractory schizophrenia. Psychiatr Q 2016; 87(2):315-322. I spent minutes with the patient and/or on the patient floor today, greater than?50% of which was spent counseling/coordinating care. Reason for contiued inpatient stay Substantial Risk for: harm to self and inability to function
[2021-07-13] MEDS: clonazePAM 0.5 MG TABLET PO ×2 (12:31→16:14)
[2021-07-13 16:11] VITALS: BP 113/73; PULSE 73; RESP 16; TEMP 36.5; O2SAT 98
[2021-07-13] MEDS: cloZAPine 25 MG TABLET PO (21:14)
[2021-07-14] MEDS: clonazePAM 0.5 MG TABLET PO ×2 (08:37→17:35)
[2021-07-14] MEDS: cloZAPine 25 MG TABLET 12.5 MG PO (08:37)
--- NOTE | 2021-07-14 13:58 | HO.PSYCHPN ---
Subjective Subjective Date of Service: 07/14/21 Reason For Visit: Suicidal Interim History: Patient lying in bed on approach. Clean shaven. Patient says that today is not as well for his yesterday he says it is not that bad. Patient says he does not want to talk at this time. He denies any medication side effects and agrees to continue titration of clozapine Mental Status Exam Mental Status Exam Narrative: Pt is alert and oriented; behavior is with limited cooperation; unkempt hair but clean shaven; mood is described as ok affect constricted; eye contact adequate; Speech is normal rate, volume and prosody and not pressured; no psychomotor agitation; thought process is organized, linear and goal directed.? Thought content is occupied by paranoid, persecutory delusions; intermittent SI to fulfill task assigned to him by persecutors; no HI.? Patient believes he receives messages through various avenues , including media which he avoids. Denies AvH. ?Patients insight and judgment are impaired Diagnostics Vital Signs (24Hr): Vital Signs - 24 hr 07/13/21 16:11 Temperature 97.7 F Pulse Rate 73 Respiratory Rate 16 Blood Pressure 113/73 Pulse Oximetry 98 Medications Medications Current Medications Acetaminophen (Acetaminophen 325 Mg Tablet) 650 mg PO Q6H PRN PRN Reason: Pain, Mild (Pain Scale 1-3) Al Hydroxide/Mg Hydroxide (Magnesium Hydrox/Alum Hydrox 30 Ml Oral.Susp) 30 ml PO Q6H PRN PRN Reason: Heartburn/Nausea Clonazepam (Clonazepam 0.5 Mg Tablet) 0.5 mg PO BID@0900,1700 [facility] Last Admin: 07/14/21 08:37 Dose: 0.5 mg Documented by: Clozapine (Clozapine 25 Mg Tablet) 25 mg PO BEDTIME [facility] Last Admin: 07/13/21 21:14 Dose: 25 mg Documented by: Clozapine (Clozapine 25 Mg Tablet) 12.5 mg PO DAILY [facility] [place] Last Admin: 07/14/21 08:37 Dose: 12.5 mg Documented by: Diphenhydramine HCl (Diphenhydramine Hcl 25 Mg Tablet) 50 mg PO Q4H PRN PRN Reason: agitation Haloperidol (Haloperidol 5 Mg Tablet) 5 mg PO Q4H PRN PRN Reason: agitation Hydroxyzine HCl (Hydroxyzine Hcl 25 Mg Tablet) 25 mg PO BEDTIME PRN PRN Reason: Anxiety Lorazepam (Lorazepam 1 Mg Tablet) 2 mg PO Q4H PRN PRN Reason: severe agitation Lorazepam (Lorazepam 1 Mg Tablet) 1 mg PO Q4H PRN PRN Reason: mild to moderate anxiety Magnesium Hydroxide (Milk Of Magnesia 30 Ml Oral.Susp) 30 ml PO DAILY PRN PRN Reason: Constipation Nicotine Polacrilex (Nicotine Polacrilex 2 Mg Gum) 2 mg BUCCAL Q2H PRN PRN Reason: Nicotine Cravings Trazodone HCl (Trazodone Hcl 50 Mg Tablet) 50 mg PO BEDTIME PRN PRN Reason: Insomnia Allergies Allergies Allergy/AdvReac Type Severity Reaction Status Date / Time olanzapine [OLANZAPINE] Allergy Severe FACIAL Verified 04/06/21 10:20 SWELLING Assessment & Plan Assessment & Plan (1) Schizoaffective disorder: Status: Chronic Code(s): F25.9 - Schizoaffective disorder, unspecified (2) Starvation ketoacidosis: Status: Resolved Code(s): E87.2 - Acidosis (3) PTSD (post-traumatic stress disorder): Status: Suspected Code(s): F43.10 - Post-traumatic stress disorder, unspecified Assessment and Plan: Impression: Patient is a 35-year-old male with history of schizophrenia, paranoid type who presents after her prolonged suicide by starvation, due to paranoid ideations in the face of going off medications, specifically clozapine. Patient was 1st admitted to the medical floor where he required fluid resuscitation, electrolytes replenished and treatment for starvation ketoacidosis, hypernatremia and acute kidney injury. Once resolved and medically cleared and transferred to psychiatric unit. Patient was recently discharged from the unit around 05/13/2021. 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 Patient has no insight. Currently refuses medications and remains on Section 12 B. he says he does not necessarily want to leave the hospital, nor does he want to stay but does not want to sign a CV worried that it will be unacceptable to his persecutors. -patient remains in severe mental anguish over what is the right thing to do, very worried about making the wrong decision which will aggravate his persecutors and therefor put his family in future jeopardy; patient eventually decided to sign a CV but then later signed a 3 day notice. He agreed to take Clozaril but then was again ambivalent. Patient remains willing to self-harm to the point of suicide based on paranoid delusions that he must do so in order to save his family from future torment. -over the weekend patient was screaming, had a control and required medication restraint 07/11 patient remains with joel paranoid, persecutory delusions, thoughts to starve himself to based on paranoid delusion, no insight and impaired judgment. -currently he is eating and drinking but only minimally 07/12 pt decided to take Clozaril 07/13: Patient is tormented seems to have reached a boiling point and he agreed to take Clozaril and sign in Barrier to discharge: Patient is floridly psychotic and remains actively suicidal; he requires locked unit to resolve symptoms with medication management. Plan: signs and retracts 3 day notice, ostensibly to leave himself the option of court, though he seems to be willing to remain on unit and take med -othewise, Will petition the court for involuntary commitment and substituted judgment Q 15 minutes checks for safety INCREASE Clozaril 25mg BID (will titrate as fast as clinically tolerated (pt did have clozapine toxicity at last admission with titration; it was reduced and then well tolerated but will be cautious) scheduled clonazepam 0.5 mg b.i.d. for anxiety while Clozaril is being titrated Micromedex: 1) Rapid titration in hospitalized patients: Day 1, 50 mg orally followed by 50 to 100 mg as needed every 6 hours (up to an additional 150 mg). Thereafter, may increase daily dosage in increments of 50 to 100 mg. Mean dosage on day 1 was 207 mg/day in patients with prior clozapine exposure and 59.7 mg without prior exposure. Mean titration over 5.44 days to a dosage of 260 mg/day, lead to a mean dosage at discharge of 322 mg/day Sarika HEBERT, Peggy A, Wagner FLYNN, et al: Rapid clozapine titration in patients with treatment refractory schizophrenia. Psychiatr Q 2016; 87(2):315-322. I spent minutes with the patient and/or on the patient floor today, greater than?50% of which was spent counseling/coordinating care. Reason for contiued inpatient stay Substantial Risk for: harm to self
[2021-07-14 18:00] VITALS: BP 117/69; PULSE 86; RESP 16; TEMP 36.8; O2SAT 100
[2021-07-14] MEDS: cloZAPine 25 MG TABLET PO (20:10)
--- NOTE | 2021-07-15 10:22 | P.PNPSI_ITS ---
Subjective Subjective Date of Service: 07/15/21 Reason For Visit: Suicidal Interim History: Patient lying in bed on approach. He says he has feeling a little better. Upon inquiry he says that he is now taking a new approach to dealing with his issue. Patient does not want to discuss this however. He denies SI. Director Of [employer] asked about thoughts on starving himself to which patient replied he is going to probably move on from that. He says he realizes it was all a lie anyway, implying that his persecutors just manipulated him into doing that, never really intending it to be beneficial for him. Director Of [employer] asked if clonazepam schedule dose is too much, making too tired to which patient said that he has not gotten much sleep over the past weeks and feels that it is appropriate medication form and would like to continue it. He said he will let director underwriter sales know if he feels otherwise. Mental Status Exam Mental Status Exam Narrative: ?Pt is alert and oriented; behavior is with limited cooperation; unkempt hair but clean shaven; mood is described as good right now affect constricted; eye contact adequate; Speech is normal rate, volume and prosody and not pressured; no psychomotor agitation; thought process is organized, linear and goal directed.? Thought content is occupied by paranoid, persecutory delusions; denies SI; no HI.? Patient believes he receives messages through various avenues , including media which he avoids. Denies AvH. ?Patients insight and judgment are impaired; but judgment has improved Diagnostics Vital Signs (24Hr): Vital Signs - 24 hr 07/14/21 18:00 Temperature 98.2 F Pulse Rate 86 Respiratory Rate 16 Blood Pressure 117/69 Pulse Oximetry 100 Medications Medications Current Medications Acetaminophen (Acetaminophen 325 Mg Tablet) 650 mg PO Q6H PRN PRN Reason: Pain, Mild (Pain Scale 1-3) Al Hydroxide/Mg Hydroxide (Magnesium Hydrox/Alum Hydrox 30 Ml Oral.Susp) 30 ml PO Q6H PRN PRN Reason: Heartburn/Nausea Clonazepam (Clonazepam 0.5 Mg Tablet) 0.5 mg PO BID@0900,1700 [facility] Last Admin: 07/14/21 17:35 Dose: 0.5 mg Documented by: Clozapine (Clozapine 25 Mg Tablet) 25 mg PO BID [facility] Last Admin: 07/14/21 20:10 Dose: 25 mg Documented by: Diphenhydramine HCl (Diphenhydramine Hcl 25 Mg Tablet) 50 mg PO Q4H PRN PRN Reason: agitation Haloperidol (Haloperidol 5 Mg Tablet) 5 mg PO Q4H PRN PRN Reason: agitation Hydroxyzine HCl (Hydroxyzine Hcl 25 Mg Tablet) 25 mg PO BEDTIME PRN PRN Reason: Anxiety Lorazepam (Lorazepam 1 Mg Tablet) 2 mg PO Q4H PRN PRN Reason: severe agitation Lorazepam (Lorazepam 1 Mg Tablet) 1 mg PO Q4H PRN PRN Reason: mild to moderate anxiety Magnesium Hydroxide (Milk Of Magnesia 30 Ml Oral.Susp) 30 ml PO DAILY PRN PRN Reason: Constipation Nicotine Polacrilex (Nicotine Polacrilex 2 Mg Gum) 2 mg BUCCAL Q2H PRN PRN Reason: Nicotine Cravings Trazodone HCl (Trazodone Hcl 50 Mg Tablet) 50 mg PO BEDTIME PRN PRN Reason: Insomnia Allergies Allergies Allergy/AdvReac Type Severity Reaction Status Date / Time olanzapine [OLANZAPINE] Allergy Severe FACIAL Verified 04/06/21 10:20 SWELLING Assessment & Plan Assessment & Plan (1) Schizoaffective disorder: Status: Chronic Code(s): F25.9 - Schizoaffective disorder, unspecified (2) Starvation ketoacidosis: Status: Resolved Code(s): E87.2 - Acidosis (3) PTSD (post-traumatic stress disorder): Status: Suspected Code(s): F43.10 - Post-traumatic stress disorder, unspecified Assessment and Plan: Impression: Patient is a 35-year-old male with history of schizophrenia, paranoid type who presents after her prolonged suicide by starvation, due to paranoid ideations in the face of going off medications, specifically clozapine. Patient was 1st admitted to the medical floor where he required fluid resuscitation, electrolytes replenished and treatment for starvation ketoacidosis, hypernatr emia and acute kidney injury. Once resolved and medically cleared and transferred to psychiatric unit. Patient was recently discharged from the unit around 05/13/2021. 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 Patient has no insight. Currently refuses medications and remains on Section 12 B. he says he does not necessarily want to leave the hospital, nor does he want to stay but does not want to sign a CV worried that it will be unacceptable to his persecutors. -patient remains in severe mental anguish over what is the right thing to do, very worried about making the wrong decision which will aggravate his persecutors and therefor put his family in future jeopardy; patient eventually decided to sign a CV but then later signed a 3 day notice. He agreed to take Clozaril but then was again ambivalent. Patient remains willing to self-harm to the point of suicide based on paranoid delusions that he must do so in order to save his family from future torment. -over the weekend patient was screaming, had a control and required medication restraint 07/11 patient remains with joel paranoid, persecutory delusions, thoughts to starve himself to based on paranoid delusion, no insight and impaired judgment. -currently he is eating and drinking but only minimally 07/12 pt decided to take Clozaril 07/13: Patient is tormented seems to have reached a boiling point and he agreed to take Clozaril and sign in 07/15 says he will try a new approach to his decision making; agrees to continue taking Clozaril. Remains guarded, and with paranoid delusions Barrier to discharge: Patient is floridly psychotic with intermittent active SI; he requires locked unit to resolve symptoms with medication management. Plan: CV Q 15 minutes checks for safety -INCREASEd to Clozaril 25mg BID (will titrate as clinically tolerated (pt did have clozapine toxicity at last admission with titration; it was reduced and then well tolerated but will be cautious) -scheduled clonazepam 0.5 mg b.i.d. for anxiety while Clozaril is being titrated Micromedex: 1) Rapid titration in hospitalized patients: Day 1, 50 mg orally followed by 50 to 100 mg as needed every 6 hours (up to an additional 150 mg). Thereafter, may increase daily dosage in increments of 50 to 100 mg. Mean dosage on day 1 was 207 mg/day in patients with prior clozapine exposure and 59.7 mg without prior exposure. Mean titration over 5.44 days to a dosage of 260 mg/day, lead to a mean dosage at discharge of 322 mg/day Sarika HEBERT, Peggy Oliveros, Wagner FLYNN, et al: Rapid clozapine titration in patients with treatment refractory schizophrenia. Psychiatr Q 2016; 87(2):315-322. I spent minutes with the patient and/or on the patient floor today, greater than?50% of which was spent counseling/coordinating care. Reason for contiued inpatient stay Substantial Risk for: harm to self
[2021-07-15] MEDS: cloZAPine 25 MG TABLET PO ×2 (12:52→21:43)
[2021-07-15] MEDS: clonazePAM 0.5 MG TABLET PO ×2 (12:52→17:13)
[2021-07-15 21:35] VITALS: BP 108/70; PULSE 95; TEMP 36.4
[2021-07-16 06:00] VITALS: BP 106/64; PULSE 74; RESP 18; TEMP 37; O2SAT 100
[2021-07-16] MEDS: cloZAPine 25 MG TABLET PO ×2 (08:47→20:47)
[2021-07-16] MEDS: clonazePAM 0.5 MG TABLET PO ×2 (08:47→18:10)
--- NOTE | 2021-07-16 10:26 | P.PNPSI_ITS ---
Subjective Subjective Date of Service: 07/16/21 Reason For Visit: Suicidal Subjective Notes: Conditional Voluntary Medical Problems Affecting Mental Status: No Interim History: Patient was seen in rounds today. Records and treatment plan labs were reviewed. He is doing better, attending groups. Eating and sleeping well. He has not been having any screaming episodes. Mostly isolative. He is mostly med compliant but does get mouth checks for his Clozaril in particular. Still may be having some auditory hallucinations. He denies any side effects. No changes were made today Mental Status Exam Mental Status Exam Narrative: ?Pt is alert and oriented; behavior is with limited cooperation; unkempt hair but clean shaven; mood is described as good right now affect constricted; eye contact adequate; Speech is normal rate, volume and prosody and not pressured; no psychomotor agitation; thought process is organized, linear and goal directed.? Thought content is occupied by paranoid, persecutory delusions; denies SI; no HI.? Patient believes he receives messages through various avenues , including media which he avoids. Denies AvH. ?Patients insight and judgment are impaired; but judgment has improved Diagnostics Vital Signs (24Hr): Vital Signs - 24 hr 07/15/21 21:35 07/16/21 06:00 Temperature 97.5 F 98.6 F Pulse Rate 95 74 Respiratory Rate 18 Blood Pressure 108/70 106/64 Pulse Oximetry 100 Medications Medications Current Medications Acetaminophen (Acetaminophen 325 Mg Tablet) 650 mg PO Q6H PRN PRN Reason: Pain, Mild (Pain Scale 1-3) Al Hydroxide/Mg Hydroxide (Magnesium Hydrox/Alum Hydrox 30 Ml Oral.Susp) 30 ml PO Q6H PRN PRN Reason: Heartburn/Nausea Clonazepam (Clonazepam 0.5 Mg Tablet) 0.5 mg PO BID@0900,1700 [facility] Last Admin: 07/16/21 08:47 Dose: 0.5 mg Documented by: Clozapine (Clozapine 25 Mg Tablet) 25 mg PO BID [facility] Stop: 07/17/21 23:59 Last Admin: 07/16/21 08:47 Dose: 25 mg Documented by: Clozapine (Clozapine 25 Mg Tablet) 62.5 mg PO BEDTIME [facility] Diphenhydramine HCl (Diphenhydramine Hcl 25 Mg Tablet) 50 mg PO Q4H PRN PRN Reason: agitation Haloperidol (Haloperidol 5 Mg Tablet) 5 mg PO Q4H PRN PRN Reason: agitation Hydroxyzine HCl (Hydroxyzine Hcl 25 Mg Tablet) 25 mg PO BEDTIME PRN PRN Reason: Anxiety Lorazepam (Lorazepam 1 Mg Tablet) 2 mg PO Q4H PRN PRN Reason: severe agitation Lorazepam (Lorazepam 1 Mg Tablet) 1 mg PO Q4H PRN PRN Reason: mild to moderate anxiety Magnesium Hydroxide (Milk Of Magnesia 30 Ml Oral.Susp) 30 ml PO DAILY PRN PRN Reason: Constipation Nicotine Polacrilex (Nicotine Polacrilex 2 Mg Gum) 2 mg BUCCAL Q2H PRN PRN Reason: Nicotine Cravings Trazodone HCl (Trazodone Hcl 50 Mg Tablet) 50 mg PO BEDTIME PRN PRN Reason: Insomnia Allergies Allergies Allergy/AdvReac Type Severity Reaction Status Date / Time olanzapine [OLANZAPINE] Allergy Severe FACIAL Verified 04/06/21 10:20 SWELLING Assessment & Plan Assessment & Plan (1) Schizoaffective disorder: Status: Chronic Code(s): F25.9 - Schizoaffective disorder, unspecified (2) Starvation ketoacidosis: Status: Resolved Code(s): E87.2 - Acidosis (3) PTSD (post-traumatic stress disorder): Status: Suspected Code(s): F43.10 - Post-traumatic stress disorder, unspecified Assessment and Plan: Impression: Patient is a 35-year-old male with history of schizophrenia, paranoid type who presents after her prolonged suicide by starvation, due to paranoid ideations in the face of going off medications, specifically clozapine. Patient was 1st admitted to the medical floor where he required fluid resuscitation, electrolytes replenished and treatment for starvation ketoacidosis, hypernatremia and acute kidney injury. Once resolved and medically cleared and transferred to psychiatric unit. Patient was recently discharged from the unit around 05/13/2021. Patient currently suffers from severe paranoid persecutory delusions that frequently direct him to harm himself in order to save his family from future to rture. Patient has no insight. Currently refuses medications and remains on Section 12 B. he says he does not necessarily want to leave the hospital, nor does he want to stay but does not want to sign a CV worried that it will be unacceptable to his persecutors. -patient remains in severe mental anguish over what is the right thing to do, very worried about making the wrong decision which will aggravate his persecutors and therefor put his family in future jeopardy; patient eventually decided to sign a CV but then later signed a 3 day notice. He agreed to take Clozaril but then was again ambivalent. Patient remains willing to self-harm to the point of suicide based on paranoid delusions that he must do so in order to save his family from future torment. -over the weekend patient was screaming, had a control and required medication restraint 07/11 patient remains with jole paranoid, persecutory delusions, thoughts to starve himself to based on paranoid delusion, no insight and impaired judgment. -currently he is eating and drinking but only minimally 07/12 pt decided to take Clozaril 07/13: Patient is tormented seems to have reached a boiling point and he agreed to take Clozaril and sign in 07/15 says he will try a new approach to his decision making; agrees to continue taking Clozaril. Remains guarded, and with paranoid delusions Barrier to discharge: Patient is floridly psychotic with intermittent active SI; he requires locked unit to resolve symptoms with medication management. Plan: CV Q 15 minutes checks for safety -INCREASEd to Clozaril 25mg BID (will titrate as clinically tolerated (pt did have clozapine toxicity at last admission with titration; it was reduced and then well tolerated but will be cautious) -scheduled clonazepam 0.5 mg b.i.d. for anxiety while Clozaril is being titrated Micromedex: 1) Rapid titration in hospitalized patients: Day 1, 50 mg orally followed by 50 to 100 mg as needed every 6 hours (up to an additional 150 mg). Thereafter, may increase daily dosage in increments of 50 to 100 mg. Mean dosage on day 1 was 207 mg/day in patients with prior clozapine exposure and 59.7 mg without prior exposure. Mean titration over 5.44 days to a dosage of 260 mg/day, lead to a mean dosage at discharge of 322 mg/day Sarika HEBERT, Peggy Oliveros, Wagner FLYNN, et al: Rapid clozapine titration in patients with treatment refractory schizophrenia. Psychiatr Q 2016; 87(2):315-322. 07/16/2021 continue current regimen and plan with no changes I spent minutes with the patient and/or on the patient floor today, greater than?50% of which was spent counseling/coordinating care. Reason for contiued inpatient stay Substantial Risk for: other
[2021-07-16 17:00] VITALS: BP 130/77; PULSE 116; TEMP 36.6
[2021-07-17 06:00] VITALS: BP 122/74; PULSE 77; RESP 16; TEMP 36.6; O2SAT 100
[2021-07-17] MEDS: clonazePAM 0.5 MG TABLET PO ×2 (08:31→17:00)
[2021-07-17] MEDS: cloZAPine 25 MG TABLET PO ×2 (08:31→19:07)
--- NOTE | 2021-07-17 08:58 | HO.PSYCHPN ---
Subjective Subjective Date of Service: 07/17/21 Reason For Visit: Suicidal Subjective Notes: Conditional Voluntary Interim History: He was seen and discussed in rounds today. He continues to be mostly isolative, refusing one-to-one contact. Pacing at times and continues to be guarded. No complaints or side effects. No SI. Eating and sleeping adequately. No changes were made today Medication Compliance: Yes Side effects from medications: No Review of Systems Review of Systems unable to engage for complete evaluation Yes all other systems are reviewed and are negative Constitutional: Denies frequent falls Denies frequent falls Mental Status Exam Mental Status Exam Narrative: In today's visit he is alert, oriented and pleasant with brief answers to questions. Normal speech. Minimal eye contact. Affect is appropriate and constricted. No overt signs of psychosis. Continues to have paranoid ideations and some delusions. No SI/HI. Cognitively has slowed thought processes. Judgment is intact Diagnostics Vital Signs (24Hr): Vital Signs - 24 hr 07/16/21 17:00 Temperature 97.9 F Pulse Rate 116 H Blood Pressure 130/77 Medications Medications Current Medications Acetaminophen (Acetaminophen 325 Mg Tablet) 650 mg PO Q6H PRN PRN Reason: Pain, Mild (Pain Scale 1-3) Al Hydroxide/Mg Hydroxide (Magnesium Hydrox/Alum Hydrox 30 Ml Oral.Susp) 30 ml PO Q6H PRN PRN Reason: Heartburn/Nausea Clonazepam (Clonazepam 0.5 Mg Tablet) 0.5 mg PO BID@0900,1700 [facility] Last Admin: 07/17/21 08:31 Dose: 0.5 mg Documented by: Clozapine (Clozapine 25 Mg Tablet) 25 mg PO BID [facility] Stop: 07/17/21 23:59 Last Admin: 07/17/21 08:31 Dose: 25 mg Documented by: Clozapine (Clozapine 25 Mg Tablet) 62.5 mg PO BEDTIME [facility] Diphenhydramine HCl (Diphenhydramine Hcl 25 Mg Tablet) 50 mg PO Q4H PRN PRN Reason: agitation Haloperidol (Haloperidol 5 Mg Tablet) 5 mg PO Q4H PRN PRN Reason: agitation Hydroxyzine HCl (Hydroxyzine Hcl 25 Mg Tablet) 25 mg PO BEDTIME PRN PRN Reason: Anxiety Lorazepam (Lorazepam 1 Mg Tablet) 2 mg PO Q4H PRN PRN Reason: severe agitation Lorazepam (Lorazepam 1 Mg Tablet) 1 mg PO Q4H PRN PRN Reason: mild to moderate anxiety Magnesium Hydroxide (Milk Of Magnesia 30 Ml Oral.Susp) 30 ml PO DAILY PRN PRN Reason: Constipation Nicotine Polacrilex (Nicotine Polacrilex 2 Mg Gum) 2 mg BUCCAL Q2H PRN PRN Reason: Nicotine Cravings Trazodone HCl (Trazodone Hcl 50 Mg Tablet) 50 mg PO BEDTIME PRN PRN Reason: Insomnia Allergies Allergies Allergy/AdvReac Type Severity Reaction Status Date / Time olanzapine [OLANZAPINE] Allergy Severe FACIAL Verified 04/06/21 10:20 SWELLING Assessment & Plan Assessment & Plan (1) Schizoaffective disorder: Status: Chronic Code(s): F25.9 - Schizoaffective disorder, unspecified (2) Starvation ketoacidosis: Status: Resolved Code(s): E87.2 - Acidosis (3) PTSD (post-traumatic stress disorder): Status: Suspected Code(s): F43.10 - Post-traumatic stress disorder, unspecified Assessment and Plan: Impression: Patient is a 35-year-old male with history of schizophrenia, paranoid type who presents after her prolonged suicide by starvation, due to paranoid ideations in the face of going off medications, specifically clozapine. Patient was 1st admitted to the medical floor where he required fluid resuscitation, electrolytes replenished and treatment for starvation ketoacidosis, hypernatremia and acute kidney injury. Once resolved and medically cleared and transferred to psychiatric unit. Patient was recently discharged from the unit around 05/13/2021. 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 Patient has no insight. Currently refuses medications and remains on Section 12 B. he says he does not necessarily want to leave the hospital, nor does he want to stay but does not want to sign a CV worried that it will be unacceptable to his persecutors. -patient remains in severe mental anguish over what is the right thing to do, very worried about making the wrong decision which will aggravate his persecutors and therefor put his family in future jeopardy; patient eventually decided to sign a CV but then later signed a 3 day notice. He agreed to take Clozaril but then was again ambivalent. Patient remains willing to self-harm to the point of suicide based on paranoid delusions that he must do so in order to save his family from future torment. -over the weekend patient was screaming, had a control and required medication restraint 07/11 patient remains with joel paranoid, persecutory delusions, thoughts to starve himself to based on paranoid delusion, no insight and impaired judgment. -currently he is eating and drinking but only minimally 07/12 pt decided to take Clozaril 07/13: Patient is tormented seems to have reached a boiling point and he agreed to take Clozaril and sign in 07/15 says he will try a new approach to his decision making; agrees to continue taking Clozaril. Remains guarded, and with paranoid delusions Barrier to discharge: Patient is floridly psychotic with intermittent active SI; he requires locked unit to resolve symptoms with medication management. Plan: CV Q 15 minutes checks for safety -INCREASEd to Clozaril 25mg BID (will titrate as clinically tolerated (pt did have clozapine toxicity at last admission with titration; it was reduced and then well tolerated but will be cautious) -scheduled clonazepam 0.5 mg b.i.d. for anxiety while Clozaril is being titrated Micromedex: 1) Rapid titration in hospitalized patients: Day 1, 50 mg orally followed by 50 to 100 mg as needed every 6 hours (up to an additional 150 mg). Thereafter, may increase daily dosage in increments of 50 to 100 mg. Mean dosage on day 1 was 207 mg/day in patients with prior clozapine exposure and 59.7 mg without prior exposure. Mean titration over 5.44 days to a dosage of 260 mg/day, lead to a mean dosage at discharge of 322 mg/day Sarika HEBERT, Peggy A, Wagner NG, et al: Rapid clozapine titration in patients with treatment refractory schizophrenia. Psychiatr Q 2016; 87(2):315-322. 07/16/2021 continue current regimen and plan with no changes 07/17/2021 no changes today and continue current plans and regimen I spent minutes with the patient and/or on the patient floor today, greater than?50% of which was spent counseling/coordinating care. Reason for contiued inpatient stay Substantial Risk for: other
[2021-07-17 18:00] VITALS: RESP 16
[2021-07-18 08:38] LABS: MANUAL DIFF FLAG NO
[2021-07-18 08:42] LABS: Basophils Percent Auto 0.4 % (0-2); Eosinophils Absolute Auto 0.3 X10*3/uL (0.0-0.4); Eosinophils Percent Auto 4.3 % (0-4); Hematocrit 39.6 % (42.0-52.0); Hemoglobin 13.5 g/dl (14.0-18.0); Imm Gran Abs Auto 0.02 X10*3/uL (0.00-0.03); Imm Gran Pct Auto 0.3 % (0.0-0.4); Lymphocytes Absolute Auto 1.7 X10*3/uL (1.2-4.9); Lymphocytes Percent Auto 23.5 % (20-40); Mean Corpuscular HGB Conc 34.1 g/dl (31.0-36.0); Mean Corpuscular Hemoglobin 30.1 pg (27.0-33.0); Mean Corpuscular Volume 88.4 fL (80.0-98.0); Mean Platelet Volume 10.6 fL (9.4-12.4); Monocytes Absolute Auto 0.7 X10*3/uL (0.1-1.2); Monocytes Percent Auto 10.2 % (2-11); Neutrophils Absolute Auto 4.4 x10*3/uL (2.0-8.3); Neutrophils Percent Auto 61.3 % (45-73); Platelet Count 203 X10*3/uL (160-400); Red Blood Count 4.48 X10*6/uL (4.60-5.80); Red Cell Distribution Width 12.8 % (11.0-16.0); White Blood Count 7.2 X10*3/uL (4.8-10.8)
[2021-07-18] MEDS: clonazePAM 0.5 MG TABLET PO (09:17)
--- NOTE | 2021-07-18 10:14 | HO.PSYCHPN ---
Subjective Subjective Date of Service: 07/18/21 Reason For Visit: Suicidal Interim History: pt says he realizes there was never a prize....there was never a prize. He says they determined this from the beginning, that he would be manipulated with, F-ked with and there was never going to be any benefit given to him. He says that he will take medications, eat and drink like he said; but he knows that the even if he takes meds, they will just F- with me and F-with me until i quit [taking meds]. Pt has a moment of extreme anguish, starting to yell about not knowing what to do...and then that quality analyst/technical writer is just her to F- with him and manipulate him...Pt calms down and apologizes. He reiterates that he'll take the meds. Mental Status Exam Mental Status Exam Narrative: ?Pt is alert and oriented; behavior is with limited cooperation; unkempt hair, scruffy facial hair; mood is described as hopeless; affect constricted; eye contact adequate; Speech is normal rate, volume and prosody and not pressured; no psychomotor agitation; thought process is organized, linear and goal directed.? Thought content is occupied by paranoid, persecutory delusions; denies SI;? no HI.? Patient believes he receives messages through various avenues , including media which he avoids. Denies AvH. ?Patients insight and judgment are impaired, but judgment has improved Diagnostics Vital Signs (24Hr): Vital Signs - 24 hr 07/17/21 18:00 Respiratory Rate 16 Labs Results: 07/18/21 08:29 Labs: Laboratory Results - last 48 hr 07/18/21 08:29 WBC 7.2 RBC 4.48 L Hgb 13.5 L Hct 39.6 L MCV 88.4 MCH 30.1 MCHC 34.1 RDW 12.8 Plt Count 203 MPV 10.6 Immature Gran % (Auto) 0.3 Neut % (Auto) 61.3 Lymph % (Auto) 23.5 [place] % (Auto) 10.2 Eos % (Auto) 4.3 H Baso % (Auto) 0.4 Lymph # (Auto) 1.7 [place] # (Auto) 0.7 Eos # (Auto) 0.3 Baso # (Auto) 0.0 Abs Immat Gran (auto) 0.02 Absolute Neuts (auto) 4.4 Absolute Nucleated RBC 0.000 Nucleated RBC % (auto) 0.0 Medications Medications Current Medications Acetaminophen (Acetaminophen 325 Mg Tablet) 650 mg PO Q6H PRN PRN Reason: Pain, Mild (Pain Scale 1-3) Al Hydroxide/Mg Hydroxide (Magnesium Hydrox/Alum Hydrox 30 Ml Oral.Susp) 30 ml PO Q6H PRN PRN Reason: Heartburn/Nausea Clonazepam (Clonazepam 0.5 Mg Tablet) 0.5 mg PO BID@0900,1700 [facility] Last Admin: 07/18/21 09:17 Dose: 0.5 mg Documented by: Clozapine (Clozapine 25 Mg Tablet) 62.5 mg PO BEDTIME FIDEL Diphenhydramine HCl (Diphenhydramine Hcl 25 Mg Tablet) 50 mg PO Q4H PRN PRN Reason: agitation Haloperidol (Haloperidol 5 Mg Tablet) 5 mg PO Q4H PRN PRN Reason: agitation Hydroxyzine HCl (Hydroxyzine Hcl 25 Mg Tablet) 25 mg PO BEDTIME PRN PRN Reason: Anxiety Lorazepam (Lorazepam 1 Mg Tablet) 2 mg PO Q4H PRN PRN Reason: severe agitation Lorazepam (Lorazepam 1 Mg Tablet) 1 mg PO Q4H PRN PRN Reason: mild to moderate anxiety Magnesium Hydroxide (Milk Of Magnesia 30 Ml Oral.Susp) 30 ml PO DAILY PRN PRN Reason: Constipation Nicotine Polacrilex (Nicotine Polacrilex 2 Mg Gum) 2 mg BUCCAL Q2H PRN PRN Reason: Nicotine Cravings Trazodone HCl (Trazodone Hcl 50 Mg Tablet) 50 mg PO BEDTIME PRN PRN Reason: Insomnia Allergies Allergies Allergy/AdvReac Type Severity Reaction Status Date / Time olanzapine [OLANZAPINE] Allergy Severe FACIAL Verified 04/06/21 10:20 SWELLING Assessment & Plan Assessment & Plan (1) Schizoaffective disorder: Status: Chronic Code(s): F25.9 - Schizoaffective disorder, unspecified (2) Starvation ketoacidosis: Status: Resolved Code(s): E87.2 - Acidosis (3) PTSD (post-traumatic stress disorder): Status: Suspected Code(s): F43.10 - Post-traumatic stress disorder, unspecified Assessment and Plan: Impression: Patient is a 35-year-old male with history of schizophrenia, paranoid type who presents after her prolonged suicide by starvation, due to paranoid ideations in the face of going off medications, specifically clozapine. Patient was 1st admitted to the medical floor where he required fluid resuscitation, electrolytes replenished and treatment for starvation ketoacidosis, hypernatremia and acute kidney injury. Once resolved and medically cleared and transferred to psychiatric unit. Patient was recently discharged from the unit around 05/13/2021. 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 Patient has no insight. Currently refuses medications and remains on Section 12 B. he says he does not necessarily want to leave the hospital, nor does he want to stay but does not want to sign a CV worried that it will be unacceptable to his persecutors. -patient remains in severe mental anguish over what is the right thing to do, very worried about making the wrong decision which will aggravate his persecutors and therefor put his family in future jeopardy; patient eventually decided to sign a CV but then later signed a 3 day notice. He agreed to take Clozaril but then was again ambivalent. Patient remains willing to self-harm to the point of suicide based on paranoid delusions that he must do so in order to save his family from future torment. -over the weekend patient was screaming, had a control and required medication restraint 07/11 patient remains with joel paranoid, persecutory delusions, thoughts to starve himself to based on paranoid delusion, no insight and impaired judgment. -currently he is eating and drinking but only minimally 07/12 pt decided to take Clozaril 07/13: Patient is tormented seems to have reached a boiling point and he agreed to take Clozaril and sign in 07/15- says he will try a new approach to his decision making; agrees to continue taking Clozaril. Remains guarded, and with paranoid delusions Barrier to discharge: Patient is floridly psychotic with intermittent active SI; he requires locked unit to resolve symptoms with medication management. Plan: CV Q 15 minutes checks for safety -will INCREASE to Clozaril 75mg qhs (will titrate as clinically tolerated (pt did have clozapine toxicity at last admission with titration; it was reduced and then well tolerated but will be cautious) -scheduled clonazepam 0.5 mg b.i.d. for anxiety while Clozaril is being titrated Micromedex: 1) Rapid titration in hospitalized patients: Day 1, 50 mg orally followed by 50 to 100 mg as needed every 6 hours (up to an additional 150 mg). Thereafter, may increase daily dosage in increments of 50 to 100 mg. Mean dosage on day 1 was 207 mg/day in patients with prior clozapine exposure and 59.7 mg without prior exposure. Mean titration over 5.44 days to a dosage of 260 mg/day, lead to a mean dosage at discharge of 322 mg/day Sarika HEBERT, Peggy A, Wagner NG, et al: Rapid clozapine titration in patients with treatment refractory schizophrenia. Psychiatr Q 2016; 87(2):315-322. 07/16/2021 continue current regimen and plan with no changes 07/17/2021 no changes today and continue current plans and regimen I spent minutes with the patient and/or on the patient floor today, greater than?50% of which was spent counseling/coordinating care. Reason for contiued inpatient stay Substantial Risk for: harm to self and inability to function
[2021-07-18 18:00] VITALS: BP 100/60; PULSE 93; RESP 18; TEMP 36.6; O2SAT 94
[2021-07-18] MEDS: cloZAPine 25 MG TABLET 75 MG PO (22:15)
[2021-07-19 08:46] LABS: Neut%MD 62.1 %; Neutrophils Absolute Auto 4.6 x10*3/uL (2.0-8.3); WBCANC 7.3 X10*3/uL
--- NOTE | 2021-07-19 12:16 | P.CDIR_ITS ---
Documented by User: Steff Lim CCS, CDIS 07/19/21 12:19 Retrospective Query PHYSICIAN'S DOCUMENTATION REQUEST Date of Query: 07/19/21 1216 Patient Name: Dilshad Cortez Admit Date: 07/05/21 Dear Doctor, A review of the medical record indicates additional documentation may be needed. Please review below and update the documentation accordingly. Risk Factors/Clinical Indicators/Treatments ED: evidence of starvation ketoacidosis, dehydration, poor oral intake, malnourished, cachectic, temporal wasting, not eating for days. ASPEN Criteria* Acute Illness Chronic Illness Clinical Characteristic Non-Severe (2 or more criteria present) Severe (2 or more criteria present) Non-Severe (2 or more criteria present) Severe (2 or more criteria present) Energy Intake <75% for >7 days <=50% for >=5 days <75% for >=1 month <=75% for >=1 month Weight Loss 1 week 1 ? 2% >2% N/A N/A 1 month 5% >5% 5% >5% 3 months 7.5 % >7.5% 7.5% >7.5% 6 months N/A N/A 10% >10% 1 year N/A N/A 20% >20% Body Fat Mild Moderate Mild Severe Muscle Mass Mild Moderate Mild Severe Fluid Accumulation Mild Moderate to Severe Mild Severe Reduced Job Service Consultant Strength N/A Measurably Reduced N/A Measurably Reduced *[facility] Hospitalist, 2017 To ensure the quality of the medical record, based on the above information and the recognized standard for [specify severity] malnutrition, could you please verify in your progress notes which of the following diagnoses best reflects the patient's nutritional status. Specifics to documentation: * Malnourished, please specify * Cachectic * No nutritional deficiency * Other (please specify) * Unable to determine Use of terms such as suspected, likely, concern for, or probable (associated with a specific diagnosis that is being evaluated, monitored, or treated as if it exists) are acceptable and can be coded in the inpatient setting, when documented at the time of discharge. Thank you, Steff Lim CCS, CDIS Extension: [phone] Please use your independent medical judgment in providing your response. THIS QUERY IS PART OF THE PERMANENT MEDICAL RECORD Documented by User: Raghav Regalado DO 08/16/21 10:22 Retrospective Query Provider Response: Mild Protein-Calorie Malnutrition
--- NOTE | 2021-07-19 12:47 | P.PNPSI_ITS ---
Subjective Subjective Date of Service: 07/19/21 Reason For Visit: Suicidal Interim History: Patient sitting on bed. He says that he has feeling okay today. He denies any medication side effects and denies any requests or complaints. He does not want to engage in any discussion to which development writer respected. Mental Status Exam Mental Status Exam Narrative: Pt is alert and oriented; behavior is with limited cooperation; unkempt hair, scruffy facial hair; mood is described as ok affect constricted; eye contact adequate; Speech is normal rate, volume and prosody and not pressured; no psychomotor agitation; thought process is organized, linear and goal directed.? Thought content is occupied by paranoid, persecutory delusions; denies SI;? no HI.? Patient believes he receives messages through various avenues , including media which he avoids. Denies AvH. ?Patients insight and judgment are impaired, but judgment has improved as he remains willing to take medication. Diagnostics Vital Signs (24Hr): Vital Signs - 24 hr 07/18/21 18:00 Temperature 97.8 F Pulse Rate 93 Respiratory Rate 18 Blood Pressure 100/60 Pulse Oximetry 94 Labs Results: 07/18/21 08:29 Labs: Laboratory Results - last 48 hr 07/18/21 07/19/21 08:29 08:29 WBC 7.2 RBC 4.48 L Hgb 13.5 L Hct 39.6 L MCV 88.4 MCH 30.1 MCHC 34.1 RDW 12.8 Plt Count 203 MPV 10.6 Immature Gran % (Auto) 0.3 Neut % (Auto) 61.3 Lymph % (Auto) 23.5 [place] % (Auto) 10.2 Eos % (Auto) 4.3 H Baso % (Auto) 0.4 Lymph # (Auto) 1.7 [place] # (Auto) 0.7 Eos # (Auto) 0.3 Baso # (Auto) 0.0 Abs Immat Gran (auto) 0.02 Absolute Neuts (auto) 4.4 4.6 Absolute Nucleated RBC 0.000 Nucleated RBC % (auto) 0.0 Medications Medications Current Medications Acetaminophen (Acetaminophen 325 Mg Tablet) 650 mg PO Q6H PRN PRN Reason: Pain, Mild (Pain Scale 1-3) Al Hydroxide/Mg Hydroxide (Magnesium Hydrox/Alum Hydrox 30 Ml Oral.Susp) 30 ml PO Q6H PRN PRN Reason: Heartburn/Nausea Clozapine (Clozapine 25 Mg Tablet) 75 mg PO BEDTIME FIDEL Last Admin: 07/18/21 22:15 Dose: 75 mg Documented by: Diphenhydramine HCl (Diphenhydramine Hcl 25 Mg Tablet) 50 mg PO Q4H PRN PRN Reason: agitation Haloperidol (Haloperidol 5 Mg Tablet) 5 mg PO Q4H PRN PRN Reason: agitation Hydroxyzine HCl (Hydroxyzine Hcl 25 Mg Tablet) 25 mg PO BEDTIME PRN PRN Reason: Anxiety Magnesium Hydroxide (Milk Of Magnesia 30 Ml Oral.Susp) 30 ml PO DAILY PRN PRN Reason: Constipation Nicotine Polacrilex (Nicotine Polacrilex 2 Mg Gum) 2 mg BUCCAL Q2H PRN PRN Reason: Nicotine Cravings Trazodone HCl (Trazodone Hcl 50 Mg Tablet) 50 mg PO BEDTIME PRN PRN Reason: Insomnia Allergies Allergies Allergy/AdvReac Type Severity Reaction Status Date / Time olanzapine [OLANZAPINE] Allergy Severe FACIAL Verified 04/06/21 10:20 SWELLING Assessment & Plan Assessment & Plan (1) Schizoaffective disorder: Status: Chronic Code(s): F25.9 - Schizoaffective disorder, unspecified (2) Starvation ketoacidosis: Status: Resolved Code(s): E87.2 - Acidosis (3) PTSD (post-traumatic stress disorder): Status: Suspected Code(s): F43.10 - Post-traumatic stress disorder, unspecified Assessment and Plan: Impression: Patient is a 35-year-old male with history of schizophrenia, paranoid type who presents after her prolonged suicide by starvation, due to paranoid ideations in the face of going off medications, specifically clozapine. Patient was 1st admitted to the medical floor where he required fluid resuscitation, electrolytes replenished and treatment for starvation ketoacidosis, hypernatremia and acute kidney injury. Once resolved and medically cleared and transferred to psychiatric unit. Patient was recently discharged from the unit around 05/13/2021. 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 Patient has no insight. Currently refuses medications and remains on Section 12 B. he says he does not necessarily want to leave the hospital, nor does he want to stay but does not want to sign a CV worried that it will be unacceptable to his persecutors. -patient remains in severe mental anguish over what is the right thing to do, very worried about making the wrong decision which will aggravate his persecutors and therefor put his family in future jeopardy; patient eventually decided to sign a CV but then later signed a 3 day notice. He agreed to take Clozaril but then was again ambivalent. Patient remains willing to self-harm to the point of suicide based on paranoid delusions that he must do so in order to save his family from future torment. -over the weekend patient was screaming, had a control and required medication restraint 07/11 patient remains with joel paranoid, persecutory delusions, thoughts to starve himself to based on paranoid delusion, no insight and impaired judgment. -currently he is eating and drinking but only minimally 07/12 pt decided to take Clozaril 07/13: Patient is tormented seems to have reached a boiling point and he agreed to take Clozaril and sign in 07/15- says he will try a new approach to his decision making; agrees to co ntinue taking Clozaril. Remains guarded, and with paranoid delusions Barrier to discharge: Patient is floridly psychotic with intermittent active SI; he requires locked unit to resolve symptoms with medication management. Plan: CV Q 15 minutes checks for safety -leave at Clozaril 75mg qhs; will increase to 100mg tomorrow; (will titrate as clinically tolerated (pt did have clozapine toxicity at last admission with titration; it was reduced and then well tolerated but will be cautious) -scheduled clonazepam 0.5 mg b.i.d. for anxiety while Clozaril is being titrated Micromedex: 1) Rapid titration in hospitalized patients: Day 1, 50 mg orally followed by 50 to 100 mg as needed every 6 hours (up to an additional 150 mg). Thereafter, may increase daily dosage in increments of 50 to 100 mg. Mean dosage on day 1 was 207 mg/day in patients with prior clozapine exposure and 59.7 mg without prior exposure. Mean titration over 5.44 days to a dosage of 260 mg/day, lead to a mean dosage at discharge of 322 mg/day Sarika HEBERT, Peggy Oliveros, Wagner FLYNN, et al: Rapid clozapine titration in patients with treatment refractory schizophrenia. Psychiatr Q 2016; 87(2):315-322. I spent minutes with the patient and/or on the patient floor today, greater than?50% of which was spent counseling/coordinating care. Reason for contiued inpatient stay Substantial Risk for: harm to self and inability to function
[2021-07-19 18:00] VITALS: BP 118/72; TEMP 36.6
[2021-07-20 06:00] VITALS: BP 137/70; PULSE 61; TEMP 36.3; O2SAT 99
--- NOTE | 2021-07-20 10:30 | P.PNPSI_ITS ---
Subjective Subjective Date of Service: 07/20/21 Reason For Visit: Suicidal Interim History: Patient in extreme distress today. He reports that they have communicated to him that it he should not eat, not drink not sleep and not urinate. He says with anguish face that this is impossible and even when he was starving himself at home and had not drank anything for 5 days he was still ur inating even if just a little bit. Patient reports he had a dream last night that he is stupid and does not understand things...however he thinks he knows what he needs to do which is to starve himself, stop taking medications and force the hospital to have a district court judge involved. Patient wanted to know if the court would dig into his past, an important expectation of his and one of the reasons he wants to go to court. When he learned that the court would mostly just be focused on events leading up to and including this admission, patient shared that this changed his thinking some as he was expecting his past to be uncovered. Patient says that despite the fact that he knows what to do he is al so sure he will get fucked with; he says they give me these pathways to redemption but then they do a mind fuck on me... Maybe this is a test of my will, to kill myself, to stop taking medications but they get into my head and I give up. He explains these pathways to redemption have included trying to kill himself, the redemption being less suffering for his family. Patient grabbed his head and remained in extreme distress; he said that he does not know what to do multiple times; however he then said he had felt some relief when he had previously decided to just go ahead and trust this chief underwriter and take the medications. He out loud reminded himself that court will not did into his past and that he would not be allowed to starve himself to , that the hospital would intervene. .. This summarization allowed him to again decide to continue taking medications and continue taking care of himself by eating and drinking. Mental Status Exam Mental Status Exam Narrative: Pt is alert and oriented; behavior is in anxious distress, but cooperative; unkempt hair, facial hair; mood is described as anguished and affect congruent; eye contact adequate; Speech is normal rate, volume and pr osody but sometimes pressured; psychomotor agitation present; thought process is organized, linear and goal directed.? Thought content is occupied by paranoid, persecutory delusions; SI to starve self;? no HI.? Patient believes he receives messages through various avenues , including media which he avoids. Denies AvH. ?Patients insight and judgment are impaired, but judgment has improved as he rem ains willing entertain and/or to take medication. Diagnostics Vital Signs (24Hr): Vital Signs - 24 hr 07/19/21 18:00 07/20/21 06:00 Temperature 98 F 97.3 F Pulse Rate 61 Blood Pressure 118/72 137/70 Pulse Oximetry 99 Labs Results: 07/18/21 08:29 Labs: Laboratory Results - last 48 hr 07/19/21 08:29 Absolute Neuts (auto) 4.6 Medications Medications Current Medications Acetaminophen (Acetaminophen 325 Mg Tablet) 650 mg PO Q6H PRN PRN Reason: Pain, Mild (Pain Scale 1-3) Al Hydroxide/Mg Hydroxide (Magnesium Hydrox/Alum Hydrox 30 Ml Oral.Susp) 30 ml PO Q6H PRN PRN Reason: Heartburn/Nausea Clozapine (Clozapine 100 Mg Tablet) 100 mg PO BEDTIME FIDEL Diphenhydramine HCl (Diphenhydramine Hcl 25 Mg Tablet) 50 mg PO Q4H PRN PRN Reason: agitation Haloperidol (Haloperidol 5 Mg Tablet) 5 mg PO Q4H PRN PRN Reason: agitation Hydroxyzine HCl (Hydroxyzine Hcl 25 Mg Tablet) 25 mg PO BEDTIME PRN PRN Reason: Anxiety Magnesium Hydroxide (Milk Of Magnesia 30 Ml Oral.Susp) 30 ml PO DAILY PRN PRN Reason: Constipation Nicotine Polacrilex (Nicotine Polacrilex 2 Mg Gum) 2 mg BUCCAL Q2H PRN PRN Reason: Nicotine Cravings Trazodone HCl (Trazodone Hcl 50 Mg Tablet) 50 mg PO BEDTIME PRN PRN Reason: Insomnia Allergies Allergies Allergy/AdvReac Type Severity Reaction Status Date / Time olanzapine [OLANZAPINE] Allergy Severe FACIAL Verified 04/06/21 10:20 SWELLING Assessment & Plan Assessment & Plan (1) Schizoaffective disorder: Status: Chronic Code(s): F25.9 - Schizoaffective disorder, unspecified (2) Starvation ketoacidosis: Status: Resolved Code(s): E87.2 - Acidosis (3) PTSD (post-traumatic stress disorder): Status: Suspected Code(s): F43.10 - Post-traumatic stress disorder, unspecified Assessment and Plan: Impression: Patient is a 35-year-old male with history of schizophrenia, paranoid type who presents after her prolonged suicide by starvation, due to paranoid ideations in the face of going off medications, specifically clozapine. Patient was 1st admitted to the medical floor where he required fluid resuscitation, electrolytes replenished and treatment for starvation ketoacidosis, hypernatremia and acute kidney injury. Once resolved and medically cleared and transferred to psychiatric unit. Patient was recently discharged from the unit around 05/13/2021. 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 Patient has no insight. Currently refuses medications and remains on Section 12 B. he says he does not necessarily want to leave the hospital, nor does he want to stay but does not want to sign a CV worried that it will be unacceptable to his persecutors. -patient remains in severe mental anguish over what is the right thing to do, very worried about making the wrong decision which will aggravate his persecutors and therefor put his family in future jeopardy; patient eventually decided to sign a CV but then later signed a 3 day notice. He agreed to take Clozaril but then was again ambivalent. Patient remains willing to self-harm to the point of suicide based on paranoid delusions that he must do so in order to save his family from future torment. -over the weekend patient was screaming, had a control and required medication restraint 07/11 patient remains with joel paranoid, persecutory delusions, thoughts to starve himself to based on paranoid delusion, no insight and impaired judgment. -currently he is eating and drinking but only minimally 07/12 pt decided to take Clozaril 07/13: Patient is tormented seems to have reached a boiling point and he agreed to take Clozaril and sign in 07/15- says he will try a new approach to his decision making; agrees to continue taking Clozaril. Remains guarded, and with paranoid delusions Barrier to discharge: Patient is floridly psychotic with intermittent active SI; if discharged before stable, patient will quickly decompensate will be at high risk for suicide; he requires locked unit to resolve symptoms with medication management. Plan: CV Q 15 minutes checks for safety Continue titrating Clozapine 100mg qhs to 150mg over next 6 days (will titrate as clinically tolerated (pt did have clozapine toxicity at last admission with titration; it was reduced and then well tolerated but will be cautious) -scheduled clonazepam 0.25 mg b.i.d. for anxiety while Clozaril is being titrat ed Micromedex: 1) Rapid titration in hospitalized patients: Day 1, 50 mg orally followed by 50 to 100 mg as needed every 6 hours (up to an additional 150 mg). Thereafter, may increase daily dosage in increments of 50 to 100 mg. Mean dosage on day 1 was 207 mg/day in patients with prior clozapine exposure and 59.7 mg without prior exposure. Mean titration over 5.44 days to a dosage of 260 mg/day, lead to a mean dosage at discharge of 322 mg/day Sarika HEBERT, Peggy A, Wagner FLYNN, et al: Rapid clozapine titration in patients with treatment refractory schizop hrenia. Psychiatr Q 2016; 87(2):315-322. I spent minutes with the patient and/or on the patient floor today, greater than?50% of which was spent counseling/coordinating care. Reason for contiued inpatient stay Substantial Risk for: harm to self
[2021-07-20] MEDS: cloZAPine 25 MG TABLET 75 MG PO (12:58)
[2021-07-20 16:45] VITALS: BP 107/72; PULSE 70; TEMP 36.6
[2021-07-20] MEDS: cloZAPine 100 MG TABLET PO (22:02)
[2021-07-21] MEDS: clonazePAM 0.5 MG TABLET 0.25 MG PO (08:30)
[2021-07-21] MEDS: clonazePAM 0.5 MG TABLET PO (14:47)
[2021-07-21] MEDS: OLANZapine 7.5 MG TABLET PO (14:47)
--- NOTE | 2021-07-21 15:27 | HO.PSYCHPN ---
Subjective Subjective Date of Service: 07/21/21 Reason For Visit: Suicidal Interim History: Patient in extreme anguish today. Several times while typewriter ribbon winder was talk with him he screamed with intense anguish that they will not stop F-ing with him to the point where floor staff came to the room two different times to make sure typewriter ribbon winder was safe; staff member stayed with typewriter ribbon winder in the room 2nd time. Patient was very suspicious that typewriter ribbon winder happened to come into the room at that specific time saying he was hitting his head on the wall when typewriter ribbon winder happened come in, accusing typewriter ribbon winder of knowing about this and being part of his persecuted is planned to torture him. Patient struggled to believe typewriter ribbon winder or except reality testing. Patient repeated over and over, with loud voice and intense and wild affect, grabbing his head saying I give up I give up. .. Whenever I do they fuck with me. .. It is impossible to do what they ask. . . It is impossible. . . To not eat, not drink, not Pee, not poop,not sleep. .. No matter how much I try to do what they ask it is impossible. . .i've tried to kill myself and i didn't ... Patient explained that a few days prior to this admission he had tried to kill himself by overdosing on Tylenol and took 20 extra-strength Tylenol; when that did not work the next day he took 27 tablets of extra-strength Tylenol in 2nd attempt but again, nothing. Patient is very upset and confused and feeling highly manipulated by the fact that although he complied with they his persecutors commands, neither of these overdose attempts killed him and that even his liver enzymes were fine when he eventually came to the ED. Several times during meeting, typewriter ribbon winder's phone be put from a text to which patient stopped conversation to said what may that sound? What made that sound? He accepted answer when typewriter ribbon winder showed his phone He said to typewriter ribbon winder ... remember when i asked you about Jul 25? They planted that idea in my head, just to fuck with me....and your staff.... Patient shared his frustration that going to court would not dig into his past. He was hoping that it would dig into his past, they would find out what needed to be uncovered and that he would be arrested. . .[A few months ago patient was going to the police department asking to be arrested and put in shelter, insisting he is committed some crime this again was what he was told to do by his prosecutors; to typewriter ribbon winder's knowledge there has been no crime committed]. Patient said ?I wish someone would just kill me so this could be over. ? Yard Clerk and and nursing staff Summer talked with patient about his illness and continued to attempt with reality testing; Summer was able to talk with patient eventually agreed to continue taking medication and even agreed to taking Zyprexa to see if it would help him get some relief from his current anguish. Mental Status Exam Mental Status Exam Narrative: Pt is alert and oriented; behavior is severely agitated; unkempt hair and scruffy facial hair; mood is severely anguished; affect severe anguish; intense or no eye contact ; Speech is screaming; psychomotor agitation present; thought process is organized, linear and goal directed but also perseverative.? Thought content is overwhelmed with paranoid, persecutory delusions and desire to be ; suicidal ideation; intermittent SI as fulfillment of task assigned to him by persecutors; no HI.? Patient believes he receives messages through various avenues, or having thoughts planted in his head or through media which he avoids. Denies AvH. ?Patients insight and judgment are impaired Diagnostics Vital Signs (24Hr): Vital Signs - 24 hr 07/20/21 16:45 Temperature 97.8 F Pulse Rate 70 Blood Pressure 107/72 Labs Results: 07/18/21 08:29 Medications Medications Current Medications Acetaminophen (Acetaminophen 325 Mg Tablet) 650 mg PO Q6H PRN PRN Reason: Pain, Mild (Pain Scale 1-3) Al Hydroxide/Mg Hydroxide (Magnesium Hydrox/Alum Hydrox 30 Ml Oral.Susp) 30 ml PO Q6H PRN PRN Reason: Heartburn/Nausea Clonazepam (Clonazepam 0.5 Mg Tablet) 0.25 mg PO BID@0830,1630 FIDEL Last Admin: 07/21/21 08:30 Dose: 0.25 mg Documented by: Clozapine (Clozapine 100 Mg Tablet) 100 mg PO BEDTIME FIDEL Stop: 07/21/21 23:59 Last Admin: 07/20/21 22:02 Dose: 100 mg Documented by: Clozapine (Clozapine 25 Mg Tablet) 125 mg PO BEDTIME FIDEL Stop: 07/24/21 23:55 Clozapine 100 mg/ Clozapine 50 (mg) 150 mg PO BEDTIME FIDEL Diphenhydramine HCl (Diphenhydramine Hcl 25 Mg Tablet) 50 mg PO Q4H PRN PRN Reason: agitation Haloperidol (Haloperidol 5 Mg Tablet) 5 mg PO Q4H PRN PRN Reason: agitation Hydroxyzine HCl (Hydroxyzine Hcl 25 Mg Tablet) 25 mg PO BEDTIME PRN PRN Reason: Anxiety Magnesium Hydroxide (Milk Of Magnesia 30 Ml Oral.Susp) 30 ml PO DAILY PRN PRN Reason: Constipation Nicotine Polacrilex (Nicotine Polacrilex 2 Mg Gum) 2 mg BUCCAL Q2H PRN PRN Reason: Nicotine Cravings Trazodone HCl (Trazodone Hcl 50 Mg Tablet) 50 mg PO BEDTIME PRN PRN Reason: Insomnia Allergies Allergies Allergy/AdvReac Type Severity Reaction Status Date / Time olanzapine [OLANZAPINE] Allergy Severe FACIAL Verified 04/06/21 10:20 SWELLING Assessment & Plan Assessment & Plan (1) Schizoaffective disorder: Status: Chronic Code(s): F25.9 - Schizoaffective disorder, unspecified (2) Starvation ketoacidosis: Status: Resolved Code(s): E87.2 - Acidosis (3) PTSD (post-traumatic stress disorder): Status: Suspected Code(s): F43.10 - Post-traumatic stress disorder, unspecified Assessment and Plan: Impression: Patient is a 35-year-old male with history of schizophrenia, paranoid type who presents after her prolonged suicide by starvation, due to paranoid ideations in the face of going off medications, specifically clozapine. Patient was 1st admitted to the medical floor where he required fluid resuscitation, electrolytes replenished and treatment for starvation ketoacidosis, hypernatremia and acute kidney injury. Once resolved and medically cleared and transferred to psychiatric unit. Patient was recently discharged from the unit around 05/13/2021. 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 Patient has no insight. Currently refuses medications and remains on Section 12 B. he says he does not necessarily want to leave the hospital, nor does he want to stay but does not want to sign a CV worried that it will be unacceptable to his persecutors. -patient remains in severe mental anguish over what is the right thing to do, very worried about making the wrong decision which will aggravate his persecutors and therefor put his family in future jeopardy; patient eventually decided to sign a CV but then later signed a 3 day notice. He agreed to take Clozaril but then was again ambivalent. Patient remains willing to self-harm to the point of suicide based on paranoid delusions that he must do so in order to save his family from future torment. -over the weekend patient was screaming, had a control and required medication restraint 07/11 patient remains with joel paranoid, persecutory delusions, thoughts to starve himself to based on paranoid delusion, no insight and impaired judgment. -currently he is eating and drinking but only minimally 07/12 pt decided to take Clozaril 07/13: Patient is tormented seems to have reached a boiling point and he agreed to take Clozaril and sign in 07/15- says he will try a new approach to his decision making; agrees to continue taking Clozaril. Remains guarded, and with paranoid delusions 07/21 floridly psychotic with intense paranoid, persecutory delusions that are overwhelming patient into repeated unsafe thinking or behavior including suicide, and starvation and water deprivation. Patient has no insight and does not believe that medications help at all however he thus far has been willing to continue taking them, often times needing to work through paranoid delusion in order to do so. Barrier to discharge: Patient is floridly psychotic; he has no insight and suffers from paranoid, persecutory delusions believing he needs to kill himself in order to fulfill his persecuted is demands; if discharged before stable, patient will quickly decompensate will be at high risk for suicide; he requires locked unit to resolve symptoms with medication management. Plan: CV Q 15 minutes checks for safety -have been titrating clozapine, without inducing side effects; however will try to increase pace of titration given patient's increased agitation, volatility and SI -for now continue titrating Clozapine 100mg qhs to 150mg over next 6 days; however, will likely titrate more quickly (will titrate as clinically tolerated (pt did have clozapine toxicity at last admission with titration; it was reduced and then well tolerated but will be cautious) -scheduled clonazepam 0.25 mg b.i.d. for anxiety while Clozaril is being titrated -will try to Zyprexa as well Micromedex: 1) Rapid titration in hospitalized patients: Day 1, 50 mg orally followed by 50 to 100 mg as needed every 6 hours (up to an additional 150 mg). Thereafter, may increase daily dosage in increments of 50 to 100 mg. Mean dosage on day 1 was 207 mg/day in patients with prior clozapine exposure and 59.7 mg without prior exposure. Mean titration over 5.44 days to a dosage of 260 mg/day, lead to a mean dosage at discharge of 322 mg/day Sarika HEBERT, Peggy A, Wagner NG, et al: Rapid clozapine titration in patients with treatment refractory schizophrenia. Psychiatr Q 2016; 87(2):315-322. I spent minutes with the patient and/or on the patient floor today, greater than?50% of which was spent counseling/coordinating care. Reason for contiued inpatient stay Substantial Risk for: harm to self and inability to function
[2021-07-21] MEDS: cloZAPine 25 MG TABLET 125 MG PO (20:14)
[2021-07-22 06:35] VITALS: BP 124/74; PULSE 82; TEMP 36.1; O2SAT 98
[2021-07-22] MEDS: clonazePAM 0.5 MG TABLET PO ×2 (09:07→16:42)
[2021-07-22 18:45] VITALS: BP 111/71; PULSE 95; RESP 16; TEMP 36.6; O2SAT 96
--- NOTE | 2021-07-22 19:15 | HO.PSYCHPN ---
Subjective Subjective Date of Service: 07/22/21 Reason For Visit: Suicidal Interim History: pt sitting on his bed, shirtless. Pt says i give up...i'm throwing in the towel... he says it's impossible to comply with the task/direction given to him by persecutors and reiterates They want me to not eat, not drink and not pee...i can't make myself not pee...it's impossible...and if i refuse to drink and you put me on an IV, I'll pee...it's impossible to do what they want... He says he'll take the medications and take care of himself. Pt asks fiction and nonfiction prose writer a few times if fiction and nonfiction prose writer is allowed to give him a placebo without telling him first, to which fiction and nonfiction prose writer explains that this is not allowed and considered unethical. Pt then said that the best he felt was the two days he decided to trust this fiction and nonfiction prose writer and take medications so he'll keep doing that. regarding taking zyprexa/clonazepam yesterday as a prn, pt said it did calm him down, but he does not think it was due to the medication. Mental Status Exam Mental Status Exam Narrative: Pt is alert and oriented; behavior not un-cooperative; unkempt hair, scruffy facial hair; mood is described as ok affect constricted; eye contact adequate; Speech is normal rate, volume and prosody and not pressured; no psychomotor agitation; thought process is organized, linear and goal directed.? Thought content is occupied by paranoid, persecutory delusions; intermittent SI;? no HI.? Patient believes he receives messages through various avenues, including media, which he avoids, and thought implantation. Denies AvH. ?Patients insight and judgment are impaired Diagnostics Vital Signs (24Hr): Vital Signs - 24 hr 07/22/21 06:35 07/22/21 18:45 Temperature 97 F 97.9 F Pulse Rate 82 95 Respiratory Rate 16 Blood Pressure 124/74 111/71 Pulse Oximetry 98 96 Labs Results: 07/18/21 08:29 Medications Medications Current Medications Acetaminophen (Acetaminophen 325 Mg Tablet) 650 mg PO Q6H PRN PRN Reason: Pain, Mild (Pain Scale 1-3) Al Hydroxide/Mg Hydroxide (Magnesium Hydrox/Alum Hydrox 30 Ml Oral.Susp) 30 ml PO Q6H PRN PRN Reason: Heartburn/Nausea Clonazepam (Clonazepam 0.5 Mg Tablet) 0.5 mg PO BID@0830,1630 FIDEL Last Admin: 07/22/21 16:42 Dose: 0.5 mg Documented by: Clozapine 100 mg/ Clozapine 50 (mg) 150 mg PO BEDTIME FIDEL Diphenhydramine HCl (Diphenhydramine Hcl 25 Mg Tablet) 50 mg PO Q4H PRN PRN Reason: agitation Haloperidol (Haloperidol 5 Mg Tablet) 5 mg PO Q4H PRN PRN Reason: agitation Hydroxyzine HCl (Hydroxyzine Hcl 25 Mg Tablet) 25 mg PO BEDTIME PRN PRN Reason: Anxiety Magnesium Hydroxide (Milk Of Magnesia 30 Ml Oral.Susp) 30 ml PO DAILY PRN PRN Reason: Constipation Nicotine Polacrilex (Nicotine Polacrilex 2 Mg Gum) 2 mg BUCCAL Q2H PRN PRN Reason: Nicotine Cravings Olanzapine (Olanzapine 5 Mg Tablet) 5 mg PO Q4H PRN PRN Reason: anxiety/agitation Trazodone HCl (Trazodone Hcl 50 Mg Tablet) 50 mg PO BEDTIME PRN PRN Reason: Insomnia Allergies Allergies Allergy/AdvReac Type Severity Reaction Status Date / Time olanzapine [OLANZAPINE] Allergy Severe FACIAL Verified 04/06/21 10:20 SWELLING Assessment & Plan Assessment & Plan (1) Schizoaffective disorder: Status: Chronic Code(s): F25.9 - Schizoaffective disorder, unspecified (2) Starvation ketoacidosis: Status: Resolved Code(s): E87.2 - Acidosis (3) PTSD (post-traumatic stress disorder): Status: Suspected Code(s): F43.10 - Post-traumatic stress disorder, unspecified Assessment and Plan: Impression: Patient is a 35-year-old male with history of schizophrenia, paranoid type who presents after her prolonged suicide by starvation, due to paranoid ideations in the face of going off medications, specifically clozapine. Patient was 1st admitted to the medical floor where he required fluid resuscitation, electrolytes replenished and treatment for starvation ketoacidosis, hypernatremia and acute kidney injury. Once resolved and medically cleared and transferred to psychiatric unit. Patient was recently discharged from the unit around 05/13/2021. 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 Patient has no insight. Currently refuses medications and remains on Section 12 B. he says he does not necessarily want to leave the hospital, nor does he want to stay but does not want to sign a CV worried that it will be unacceptable to his persecutors. -patient remains in severe mental anguish over what is the right thing to do, very worried about making the wrong decision which will aggravate his persecutors and therefor put his family in future jeopardy; patient eventually decided to sign a CV but then later signed a 3 day notice. He agreed to take Clozaril but then was again ambivalent. Patient remains willing to self-harm to the point of suicide based on paranoid delusions that he must do so in order to save his family from future torment. -over the weekend patient was screaming, had a control and required medication restraint 07/11 patient remains with joel paranoid, persecutory delusions, thoughts to starve himself to based on paranoid delusion, no insight and impaired judgment. -currently he is eating and drinking but only minimally 07/12 pt decided to take Clozaril 07/13: Patient is tormented seems to have reached a boiling point and he agreed to take Clozaril and sign in 07/15- says he will try a new approach to his decision making; agrees to continue taking Clozaril. Remains guarded, and with paranoid delusions 07/21 floridly psychotic with intense paranoid, persecutory delusions that are overwhelming patient into repeated unsafe thinking or behavior including suicide, and starvation and water deprivation. Patient has no insight and does not believe that medications help at all; he goes back and forth about whether to take medications as he's very anxious about contradicting his persecutors whom he believes give him messages directing his behavior. . Barrier to discharge: Patient is floridly psychotic; he has no insight and suffers from paranoid, persecutory delusions believing he needs to either kill himself or engage in behaviors that will result in , in order to fulfill his persecuted is demands; if discharged before stable, patient will quickly decompensate and be at high risk for suicide; he requires locked unit to resolve symptoms with medication management. Plan: CV Q 15 minutes checks for safety -have been titrating clozapine, without inducing side effects; however will try to increase pace of titration given patient's increased agitation, volatility and SI -for now continue titrating Clozapine 100mg qhs to 150mg over next 6 days; however, will likely titrate more quickly (will titrate as clinically tolerated (pt did have clozapine toxicity at last admission with titration; it was reduced and then well tolerated but will be cautious) -scheduled clonazepam 0.25 mg b.i.d. for anxiety while Clozaril is being titrated -will try to Zyprexa as well Micromedex: 1) Rapid titration in hospitalized patients: Day 1, 50 mg orally followed by 50 to 100 mg as needed every 6 hours (up to an additional 150 mg). Thereafter, may increase daily dosage in increments of 50 to 100 mg. Mean dosage on day 1 was 207 mg/day in patients with prior clozapine exposure and 59.7 mg without prior exposure. Mean titration over 5.44 days to a dosage of 260 mg/day, lead to a mean dosage at discharge of 322 mg/day Sarika HEBERT, Peggy A, Wagner FLYNN, et al: Rapid clozapine titration in patients with treatment refractory schizophrenia. Psychiatr Q 2016; 87(2):315-322. I spent minutes with the patient and/or on the patient floor today, greater than?50% of which was spent counseling/coordinating care. Reason for contiued inpatient stay Substantial Risk for: harm to self and inability to function
[2021-07-22] MEDS: cloZAPine 100 MG, cloZAPine 50 MG 150 MG PO (20:20)
[2021-07-23 06:48] VITALS: BP 121/85; PULSE 100; RESP 16; TEMP 36.8; O2SAT 100
[2021-07-23] MEDS: clonazePAM 0.5 MG TABLET PO (08:08)
--- NOTE | 2021-07-23 11:17 | P.PNPSI_ITS ---
Subjective Subjective Date of Service: 07/23/21 Reason For Visit: Suicidal Interim History: pt sitting in room, on bed, shirtless. Pt says that he decided that he's not going to take the meds and he thinks it best that we just bring him to court. He signed a 3 day notice. Pt did not say whether he'd try to starve himself or not. Mental Status Exam Mental Status Exam Narrative: ?Pt is alert and oriented; behavior not un-cooperative but difficult to engage; unkempt hair, scruffy facial hair; mood is described as ok affect constricted; eye contact adequate; Speech is normal rate, volume and prosody and not pressured; no psychomotor agitation; thought process is organized, linear a nd goal directed.? Thought content is occupied by paranoid, persecutory delusions; intermittent SI;? no HI.? Patient believes he receives messages through various avenues, including media, which he avoids, and thought implantation. Denies [facility]. ?Patients insight and judgment are impaired Diagnostics Vital Signs (24Hr): Vital Signs - 24 hr 07/22/21 18:45 07/23/21 06:48 Temperature 97.9 F 98.2 F Pulse Rate 95 100 Respiratory Rate 16 16 Blood Pressure 111/71 121/85 Pulse Oximetry 96 100 Labs Results: 07/18/21 08:29 Medications Medications Current Medications Acetaminophen (Acetaminophen 325 Mg Tablet) 650 mg PO Q6H PRN PRN Reason: Pain, Mild (Pain Scale 1-3) Al Hydroxide/Mg Hydroxide (Magnesium Hydrox/Alum Hydrox 30 Ml Oral.Susp) 30 ml PO Q6H PRN PRN Reason: Heartburn/Nausea Clonazepam (Clonazepam 0.5 Mg Tablet) 0.5 mg PO BID@0830,1630 [facility] Last Admin: 07/23/21 08:08 Dose: 0.5 mg Documented by: Clozapine 100 mg/ Clozapine 50 (mg) 150 mg PO BEDTIME [facility] Last Admin: 07/22/21 20:20 Dose: 150 mg Documented by: Diphenhydramine HCl (Diphenhydramine Hcl 25 Mg Tablet) 50 mg PO Q4H PRN PRN Reason: agitation Haloperidol (Haloperidol 5 Mg Tablet) 5 mg PO Q4H PRN PRN Reason: agitation Hydroxyzine HCl (Hydroxyzine Hcl 25 Mg Tablet) 25 mg PO BEDTIME PRN PRN Reason: Anxiety Magnesium Hydroxide (Milk Of Magnesia 30 Ml Oral.Susp) 30 ml PO DAILY PRN PRN Reason: Constipation Nicotine Polacrilex (Nicotine Polacrilex 2 Mg Gum) 2 mg BUCCAL Q2H PRN PRN Reason: Nicotine Cravings Olanzapine (Olanzapine 5 Mg Tablet) 5 mg PO Q4H PRN PRN Reason: anxiety/agitation Trazodone HCl (Trazodone Hcl 50 Mg Tablet) 50 mg PO BEDTIME PRN PRN Reason: Insomnia Allergies Allergies Allergy/AdvReac Type Severity Reaction Status Date / Time olanzapine [OLANZAPINE] Allergy Severe FACIAL Verified 04/06/21 10:20 SWELLING Assessment & Plan Assessment & Plan (1) Schizoaffective disorder: Status: Chronic Code(s): F25.9 - Schizoaffective disorder, unspecified (2) Starvation ketoacidosis: Status: Resolved Code(s): E87.2 - Acidosis (3) PTSD (post-traumatic stress disorder): Status: Suspected Code(s): F43.10 - Post-traumatic stress disorder, unspecified Assessment and Plan: Impression: Patient is a 35-year-old male with history of schizophrenia, paranoid type who presents after her prolonged suicide by starvation, due to paranoid ideations in the face of going off medications, specifically clozapine. Patient was 1st admitted to the medical floor where he required fluid resuscitation, electrolytes replenished and treatment for starvation ketoacidosis, hypernatremia and acute kidney injury. Once resolved and medically cleared and transferred to psychiatric unit. Patient was recently discharged from the unit around 05/13/2021. HOspital course: Patient currently suffers from severe paranoid persecutory delusions that frequently direct him to harm himself in order to save his family from future torture. Patient has no insight. Currently refuses medications and remains on Section 12 B. he says he does not necessarily want to leave the hospital, nor does he want to stay but does not want to sign a CV worried that it will be unacceptable to his persecutors. -patient remains in severe mental anguish over what is the right thing to do, very worried about making the wrong decision which will aggravate his persecutors and therefor put his family in future jeopardy; patient eventually decided to sign a CV but then later signed a 3 day notice. He agreed to take Clozaril but then was again ambivalent. Patient remains willing to self-harm to the point of suicide based on paranoid delusions that he must do so in order to save his family from future torment. -over the weekend patient was screaming, out of control and required medication restraint 07/11 patient remains with joel paranoid, persecutory delusions, thoughts to starve himself to based on paranoid delusion, no insight and impaired judgment. -currently he is eating and drinking but only minimally 07/12 pt decided to take Clozaril 07/13: Patient is tormented seems to have reached a boiling point and he agreed to take Clozaril and sign in 07/15- says he will try a new approach to his decision making; agrees to continue taking Clozaril. Remains guarded, and with paranoid delusions 07/21 floridly psychotic with intense paranoid, persecutory delusions that are overwhelming patient into repeated unsafe thinking or behavior including suicide, and starvation and water deprivation. Patient has no insight and does not believe that medications help at all; he goes back and forth about whether to take medications as he's very anxious about contradicting his persecutors whom he believes give him messages directing his behavior. 07/23 pt again decided to stop taking medications, a frequent decision emerging every few days as patient again feels that it's safer to listen to his persecutors (paranoid delusions) then it is to go against their edict and take medications. Over the past 2 weeks, only after lengthy discussions, would patient change his mind and go back to taking medications; however this reversion is not due to any moment of insight but rather a combination of emotional exhaustion and him trying to find a loophole in his persecutors edict to not take medications. Paraffin Machine Operator reviewed case with Dr. Mcleod and other team members and it was discussed whether or not Dilshad needs a longer term hospitalization such as [facility]. Patient recently revealed that over the days/weeks prior to this admission, in addition to trying to starve/dehydrate himself to , he tried to kill himself 2x by Tylenol overdose, making junior copywriter more aware of the extent of his unsafe behavior. Patient remains without any insight at all. He is fully overwhelmed by persecutory delusions. At this point it is becoming increasing difficult for junior copywriter to imagine a scenario where Dilshad is safe outside of a longer term commitment where he is court ordered to take medications. For while he has indeed benefited from Clozapine (improved mood, relief from emotional anguish and reprieve from being contacted by persecutors [delusions]) his illness keeps him from attributing that benefit to medication; rather he maintains that medications are placebos and his relief is due to some other cause; and thus, on his own, patient's illness renders him unable to remain adherent with medications. However, if Dilshad had an extended hospital stay and remained on medications for an extended period of months, he may experience his relief from torture as a product of medications and thus achieve enough insight to remain on medications as an outpatient. Paraffin Machine Operator will continue to discuss case with colleagues, but is coming to the conclusion that patient requires [facility] admission for his safety. Barrier to discharge: Patient is floridly psychotic; he has no insight and suffers from paranoid, persecutory delusions believing he needs to either kill himself or engage in behaviors that will result in , in order to fulfill his persecutors demands; if discharged before stable, patient will quickly decompensate and be at high risk for suicide; he requires locked unit, and likely a [facility] admission, to resolve symptoms with medication management. PLAN: Signed 3 day notice on 07/23/21 Q 15 minutes checks for safety -Will petition court for involuntary commitment and substituted judgment. Will strongly consider application to [facility] -have been titrating clozapine, without inducing side effects; however will try to increase pace of titration given patient's increased agitation, volatility and SI -for now continue titrating Clozapine 100mg qhs to 150mg over next 6 days; lin poon, will likely titrate more quickly (will titrate as clinically tolerated (pt did have clozapine toxicity at last admission with titration; it was reduced and then well tolerated but will be cautious) -scheduled clonazepam 0.25 mg b.i.d. for anxiety while Clozaril is being titrated -will try to Zyprexa prn as well Micromedex: 1) Rapid titration in hospitalized patients: Day 1, 50 mg orally followed by 50 to 100 mg as needed every 6 hours (up to an additional 150 mg). Thereafter, may increase daily dosage in increments of 50 to 100 mg. Mean dosage on day 1 was 207 mg/day in patients with prior clozapine exposure and 59.7 mg without prior exposure. Mean titration over 5.44 days to a dosage of 260 mg/day, lead to a mean dosage at discharge of 322 mg/day Sarika HEBERT, Peggy Oliveros, Wagner FLYNN, et al: Rapid clozapine titration in patients with treatment refractory schizophrenia. Psychiatr Q 2016; 87(2):315-322. I spent minutes with the patient and/or on the patient floor today, greater than?50% of which was spent counseling/coordinating care. Reason for contiued inpatient stay Substantial Risk for: harm to self and inability to function
--- NOTE | 2021-07-23 12:56 | PC.NURSE ---
PT SIGNED A 3 DAY NOTICE ON 07/23/21. UP 07/27/21.
[2021-07-23 18:00] VITALS: BP 109/76; PULSE 96; RESP 16; TEMP 35.9; O2SAT 99
[2021-07-24 06:44] VITALS: BP 112/60; PULSE 92; TEMP 36.9; O2SAT 96
--- NOTE | 2021-07-24 11:06 | HO.PSYCHPN ---
Subjective Subjective Date of Service: 07/24/21 Reason For Visit: Suicidal Interim History: Wood Web Weaving Machine Operator read gave Gutierres warning including that talking with caption writer is voluntary Patient remains deeply distraught and frightened about obeying his persecutory is; he remains anguished that they have promised a worst torture to come. He said he does not know why he is not able to push through and keep himself awake or keep himself from going to the bathroom longer than he has been able to. Patient told caption writer that they have told him how to kill himself after he is discharged; pt did not want to disclose any further information about this. Wood Web Weaving Machine Operator discussed with patient the diagnosis of schizophrenia. Patient says he has looked it up before and knows that he is not mentally ill however he was willing to ask several questions about his experiences and whether or not they fit with schizophrenia (which they do). Patient shared about he is unsure if his parents are his real parents and that his thoughts are often not his own. He says his behaviors are his own but they also seem not to be sometimes. Patient shared how he asked a roofing technician to help him understand why he has not been brought in for crimes despite thinking is under surveillance; the roofing technician try to help him understand that this is not at all how police work. And while this momentarily helped patient consider that this torture is all due to mental illness, they insight was a ephemoral. He shared again how he is very confused and frustrated that his suicide attempt by overdosing on Tylenol the days or week before admission did not work and he thinks that he bought the Tylenol at the store were fakes, and that although his attempt was directed by they..., they also orchestrated that he remain alive. Patient told a story about how when he was a child there was a little mouse that was living under a shed in his backyard. He wanted to catch it, not to hurt it but just catch it for fun. It kept coming out and every time he tried to catch it he missed; however it never seemed to learn about the danger and so kept coming out until it was caught. Patient says he feels like this mouse. Pt said in past, Seroquel helped lower some of his obsessive and compulsive thinking and behaviors. But he also felt the sedating side effects of this med. At the end of discussion patient said that he would probably keep taking the medications but he is going to leave his 3 day in and go to court Diagnostics Vital Signs (24Hr): Vital Signs - 24 hr 07/23/21 18:00 07/24/21 06:44 Temperature 96.7 F L 98.5 F Pulse Rate 96 92 Respiratory Rate 16 Blood Pressure 109/76 112/60 Pulse Oximetry 99 96 Labs Results: 07/25/21 08:28 Medications Medications Current Medications Acetaminophen (Acetaminophen 325 Mg Tablet) 650 mg PO Q6H PRN PRN Reason: Pain, Mild (Pain Scale 1-3) Al Hydroxide/Mg Hydroxide (Magnesium Hydrox/Alum Hydrox 30 Ml Oral.Susp) 30 ml PO Q6H PRN PRN Reason: Heartburn/Nausea Clonazepam (Clonazepam 0.5 Mg Tablet) 0.5 mg PO BID@0830,1630 [facility] Last Admin: 07/24/21 08:59 Dose: Not Given Documented by: Clonazepam (Clonazepam 1 Mg Tablet) 1 mg PO ONCE ONE Stop: 07/24/21 11:06 Clozapine 100 mg/ Clozapine 50 (mg) 150 mg PO BEDTIME [facility] Last Admin: 07/23/21 20:00 Dose: Not Given Documented by: Diphenhydramine HCl (Diphenhydramine Hcl 25 Mg Tablet) 50 mg PO Q4H PRN PRN Reason: agitation Haloperidol (Haloperidol 5 Mg Tablet) 5 mg PO Q4H PRN PRN Reason: agitation Hydroxyzine HCl (Hydroxyzine Hcl 25 Mg Tablet) 25 mg PO BEDTIME PRN PRN Reason: Anxiety Magnesium Hydroxide (Milk Of Magnesia 30 Ml Oral.Susp) 30 ml PO DAILY PRN PRN Reason: Constipation Nicotine Polacrilex (Nicotine Polacrilex 2 Mg Gum) 2 mg BUCCAL Q2H PRN PRN Reason: Nicotine Cravings Olanzapine (Olanzapine 5 Mg Tablet) 5 mg PO Q4H PRN PRN Reason: anxiety/agitation Trazodone HCl (Trazodone Hcl 50 Mg Tablet) 50 mg PO BEDTIME PRN PRN Reason: Insomnia Ziprasidone (Ziprasidone 20 Mg Capsule) 20 mg PO ONCE ONE Stop: 07/24/21 11:06 Allergies Allergies Allergy/AdvReac Type Severity Reaction Status Date / Time olanzapine [OLANZAPINE] Allergy Severe FACIAL Verified 04/06/21 10:20 SWELLING Assessment & Plan Assessment & Plan (1) Schizoaffective disorder: Status: Chronic Code(s): F25.9 - Schizoaffective disorder, unspecified (2) Starvation ketoacidosis: Status: Resolved Code(s): E87.2 - Acidosis (3) PTSD (post-traumatic stress disorder): Status: Suspected Code(s): F43.10 - Post-traumatic stress disorder, unspecified Assessment and Plan: Impression: Patient is a 35-year-old male with history of schizophrenia, paranoid type who presents after her prolonged suicide by starvation, due to paranoid ideations in the face of going off medications, specifically clozapine. Patient was 1st admitted to the medical floor where he required fluid resuscitation, electrolytes replenished and treatment for starvation ketoacidosis, hypernatremia and acute kidney injury. Once resolved and medically cleared and transferred to psychiatric unit. Patient was recently discharged from the unit around 05/13/2021. HOspital course: Patient currently suffers from severe paranoid persecutory delusions that frequently direct him to harm himself in order to save his family from future torture. Patient has no insight. Currently refuses medications and remains on Section 12 B. he says he does not necessarily want to leave the hospital, nor does he want to stay but does not want to sign a CV worried that it will be unacceptable to his persecutors. -patient remains in severe mental anguish over what is the right thing to do, very worried about making the wrong decision which will aggravate his persecutors and therefor put his family in future jeopardy; patient eventually decided to sign a CV but then later signed a 3 day notice. He agreed to take Clozaril but then was again ambivalent. Patient remains willing to self-harm to the point of suicide based on paranoid delusions that he must do so in order to save his family from future torment. -over the weekend patient was screaming, out of control and required medication restraint 07/11 patient remains with joel paranoid, persecutory delusions, thoughts to starve himself to based on paranoid delusion, no insight and impaired judgment. -currently he is eating and drinking but only minimally 07/12 pt decided to take Clozaril 07/13: Patient is tormented seems to have reached a boiling point and he agreed to take Clozaril and sign in 07/15- says he will try a new approach to his decision making; agrees to continue taking Clozaril. Remains guarded, and with paranoid delusions 07/21 floridly psychotic with intense paranoid, persecutory delusions that are overwhelming patient into repeated unsafe thinking or behavior including suicide, and starvation and water deprivation. Patient has no insight and does not believe that medications help at all; he goes back and forth about whether to take medications as he's very anxious about contradicting his persecutors whom he believes give him messages directing his behavior. 07/23 pt again decided to stop taking medications, a frequent decision emerging every few days as patient again feels that it's safer to listen to his persecutors (paranoid delusions) then it is to go against their edict and take medications. Over the past 2 weeks, only after lengthy discussions, would patient change his mind and go back to taking medications; however this reversion is not due to any moment of insight but rather a combination of emotional exhaustion and him trying to find a loophole in his persecutors edict to not take medications. Wood Web Weaving Machine Operator reviewed case with Dr. Mcleod and other team members and it was discussed whether or not Dilshad needs a longer term hospitalization such as [facility]. Patient recently revealed that over the days/weeks prior to this admission, in addition to trying to starve/dehydrate himself to , he tried to kill himself 2x by Tylenol overdose, making caption writer more aware of the extent of his unsafe behavior. Patient remains without any insight at all. He is fully overwhelmed by persecutory delusions. At this point it is becoming increasing difficult for caption writer to imagine a scenario where Dilshad is safe outside of a longer term commitment where he is court ordered to take medications. For while he has indeed benefited from Clozapine (improved mood, relief from emotional anguish and reprieve from being contacted by persecutors [delusions]) his illness keeps him from attributing that benefit to medication; rather he maintains that medications are placebos and his relief is due to some other cause; and thus, on his own, patient's illness renders him unable to remain adherent with medications. However, if Dilshad had an extended hospital stay and remained on medications for an extended period of months, he may experience his relief from torture as a product of medications and thus achieve enough insight to remain on medications as an outpatient. Wood Web Weaving Machine Operator will continue to discuss case with colleagues, but is coming to the conclusion that [facility] his [facility]. Barrier to discharge: Patient is floridly psychotic; he has no insight and suffers from paranoid, persecutory delusions believing he needs to either kill himself or engage in behaviors that will result in , in order to fulfill his persecutors demands; if discharged before stable, patient will quickly decompensate and be at high risk for suicide; he requires locked unit, and likely a longitudinal float operator admission, to resolve symptoms with medication management. PLAN: Signed 3 day notice on 07/23/21 Q 15 minutes checks for safety -Will petition court for involuntary commitment and substituted judgment. Will strongly consider application to [facility] -have been titrating Clozapine, without inducing side effects; however will try to increase pace of titration given patient's increased agitation, volatility and SI -for now continue titrating Clozapine 100mg qhs to 150mg over next 6 days; however, will likely titrate more quickly (will titrate as clinically tolerated (pt did have clozapine toxicity at last admission with titration; it was reduced and then well tolerated but will be cautious) -scheduled clonazepam 0.25 mg b.i.d. for anxiety while Clozaril is being titrated -will use Ziprasidone p.r.n. Micromedex: 1) Rapid titration in hospitalized patients: Day 1, 50 mg orally followed by 50 to 100 mg as needed every 6 hours (up to an additional 150 mg). Thereafter, may increase daily dosage in increments of 50 to 100 mg. Mean dosage on day 1 was 207 mg/day in patients with prior clozapine exposure and 59.7 mg without prior exposure. Mean titration over 5.44 days to a dosage of 260 mg/day, lead to a mean dosage at discharge of 322 mg/day Sarika HEBERT, Peggy A, Wagner NG, et al: Rapid clozapine titration in patients with treatment refractory schizophrenia. Psychiatr Q 2016; 87(2):315-322. I spent minutes with the patient and/or on the patient floor today, greater than?50% of which was spent counseling/coordinating care. Reason for contiued inpatient stay Substantial Risk for: harm to self
[2021-07-24] MEDS: Ziprasidone 20 MG CAPSULE PO (11:10)
[2021-07-24] MEDS: clonazePAM 1 MG TABLET PO (11:10)
[2021-07-24] MEDS: cloZAPine 100 MG TABLET PO (12:27)
[2021-07-24] MEDS: clonazePAM 0.5 MG TABLET PO (16:56)
[2021-07-24 17:35] VITALS: O2SAT 91
[2021-07-24] MEDS: cloZAPine 100 MG, cloZAPine 50 MG 150 MG PO (21:19)
[2021-07-25 06:45] VITALS: BP 91/51; PULSE 97; RESP 18; TEMP 36.8; O2SAT 95
[2021-07-25 08:34] LABS: MANUAL DIFF FLAG NO
[2021-07-25] MEDS: clonazePAM 0.5 MG TABLET PO (08:34)
[2021-07-25 08:37] LABS: Basophils Percent Auto 0.3 % (0-2); Eosinophils Absolute Auto 0.2 X10*3/uL (0.0-0.4); Eosinophils Percent Auto 2.2 % (0-4); Hematocrit 40.9 % (42.0-52.0); Hemoglobin 13.8 g/dl (14.0-18.0); Imm Gran Abs Auto 0.02 X10*3/uL (0.00-0.03); Imm Gran Pct Auto 0.2 % (0.0-0.4); Lymphocytes Absolute Auto 1.8 X10*3/uL (1.2-4.9); Lymphocytes Percent Auto 19.4 % (20-40); Mean Corpuscular HGB Conc 33.7 g/dl (31.0-36.0); Mean Corpuscular Hemoglobin 30.4 pg (27.0-33.0); Mean Corpuscular Volume 90.1 fL (80.0-98.0); Mean Platelet Volume 9.8 fL (9.4-12.4); Monocytes Absolute Auto 0.6 X10*3/uL (0.1-1.2); Monocytes Percent Auto 6.7 % (2-11); Neutrophils Absolute Auto 6.7 x10*3/uL (2.0-8.3); Neutrophils Percent Auto 71.2 % (45-73); Platelet Count 210 X10*3/uL (160-400); Red Blood Count 4.54 X10*6/uL (4.60-5.80); Red Cell Distribution Width 13.5 % (11.0-16.0); White Blood Count 9.4 X10*3/uL (4.8-10.8)
--- NOTE | 2021-07-25 13:17 | PC.NURSE ---
Section 7 paperwork filed, awaiting information about court date.
[2021-07-25 16:00] VITALS: BP 135/92; PULSE 93; TEMP 36.7
--- NOTE | 2021-07-25 16:54 | P.PNPSI_ITS ---
Subjective Subjective Date of Service: 07/25/21 Reason For Visit: Suicidal Interim History: Patient said he has okay Patient does not want to talk much today and automobile service writer agreed to meet another time. He did however take handout from automobile service writer of the diagnostic criteria for schizophrenia which he said he had read. Mental Status Exam Mental Status Exam Narrative: ?Pt is alert and oriented; behavior not un-cooperative but difficult to engage; unkempt hair, scruffy facial hair; mood is described as ok affect constricted; eye contact adequate; Speech is normal rate, volume and prosody and not pressured; no psychomotor agitation; thought process is organized, linear and goal directed.? Thought content is occupied by paranoid, persecutory delusions; intermittent SI;? no HI.? Patient believes he receives messages through various avenues, including media, which he avoids, and thought implantation. Denies AvH. ?Patients insight and judgment are impaired Diagnostics Vital Signs (24Hr): Vital Signs - 24 hr 07/24/21 17:35 07/25/21 06:45 Temperature 98.2 F Pulse Rate 97 Respiratory Rate 18 Blood Pressure 91/51 L Pulse Oximetry 91 L 95 Labs Results: 07/25/21 08:28 Labs: Laboratory Results - last 48 hr 07/25/21 08:28 WBC 9.4 RBC 4.54 L Hgb 13.8 L Hct 40.9 L MCV 90.1 MCH 30.4 MCHC 33.7 RDW 13.5 Plt Count 210 MPV 9.8 Immature Gran % (Auto) 0.2 Neut % (Auto) 71.2 Lymph % (Auto) 19.4 L [place] % (Auto) 6.7 Eos % (Auto) 2.2 Baso % (Auto) 0.3 Lymph # (Auto) 1.8 [place] # (Auto) 0.6 Eos # (Auto) 0.2 Baso # (Auto) 0.0 Abs Immat Gran (auto) 0.02 Absolute Neuts (auto) 6.7 Absolute Nucleated RBC 0.000 Nucleated RBC % (auto) 0.0 Medications Medications Current Medications Acetaminophen (Acetaminophen 325 Mg Tablet) 650 mg PO Q6H PRN PRN Reason: Pain, Mild (Pain Scale 1-3) Al Hydroxide/Mg Hydroxide (Magnesium Hydrox/Alum Hydrox 30 Ml Oral.Susp) 30 ml PO Q6H PRN PRN Reason: Heartburn/Nausea Clonazepam (Clonazepam 0.5 Mg Tablet) 0.5 mg PO BID@0830,1630 [facility] Last Admin: 07/25/21 16:11 Dose: Not Given Documented by: Clozapine 100 mg/ Clozapine 50 (mg) 150 mg PO BEDTIME [facility] Last Admin: 07/24/21 21:19 Dose: 150 mg Documented by: Diphenhydramine HCl (Diphenhydramine Hcl 25 Mg Tablet) 50 mg PO Q4H PRN PRN Reason: agitation Haloperidol (Haloperidol 5 Mg Tablet) 5 mg PO Q4H PRN PRN Reason: agitation Hydroxyzine HCl (Hydroxyzine Hcl 25 Mg Tablet) 25 mg PO BEDTIME PRN PRN Reason: Anxiety Magnesium Hydroxide (Milk Of Magnesia 30 Ml Oral.Susp) 30 ml PO DAILY PRN PRN Reason: Constipation Nicotine Polacrilex (Nicotine Polacrilex 2 Mg Gum) 2 mg BUCCAL Q2H PRN PRN Reason: Nicotine Cravings Trazodone HCl (Trazodone Hcl 50 Mg Tablet) 50 mg PO BEDTIME PRN PRN Reason: Insomnia Allergies Allergies Allergy/AdvReac Type Severity Reaction Status Date / Time olanzapine [OLANZAPINE] Allergy Severe FACIAL Verified 04/06/21 10:20 SWELLING Assessment & Plan Assessment & Plan (1) Schizoaffective disorder: Status: Chronic Code(s): F25.9 - Schizoaffective disorder, unspecified (2) Starvation ketoacidosis: Status: Resolved Code(s): E87.2 - Acidosis (3) PTSD (post-traumatic stress disorder): Status: Suspected Code(s): F43.10 - Post-traumatic stress disorder, unspecified Assessment and Plan: Impression: Patient is a 35-year-old male with history of schizophrenia, paranoid type who presents after her prolonged suicide by starvation, due to paranoid ideations in the face of going off medications, specifically clozapine. Patient was 1st admitted to the medical floor where he required fluid resuscitation, electrolytes replenished and treatment for starvation ketoacidosis, hyper natremia and acute kidney injury. Once resolved and medically cleared and transferred to psychiatric unit. Patient was recently discharged from the unit around 05/13/2021. HOspital course: Patient currently suffers from severe paranoid persecutory delusions that frequently direct him to harm himself in order to save his family from future torture. Patient has no insight. Currently refuses medications and remains on Section 12 [address]. he says he does not necessarily want to leave the hospital, nor does he want to stay but does not want to sign a CV worried that it will be unacceptable to his persecutors. -patient remains in severe mental anguish over what is the right thing to do, very worried about making the wrong decision which will aggravate his persecutors and therefor put his family in future jeopardy; patient eventually decided to sign a CV but then later signed a 3 day notice. He agreed to take Clozaril but then was again ambivalent. Patient remains willing to self-harm to the point of suicide based on paranoid delusions that he must do so in order to save his family from future torment. -over the weekend patient was screaming, out of control and required medication restraint 07/11 patient remains with joel paranoid, persecutory delusions, thoughts to starve himself to based on paranoid delusion, no insight and impaired judgment. -currently he is eating and drinking but only minimally 07/12 pt decided to take Clozaril 07/13: Patient is tormented seems to have reached a boiling point and he agreed to take Clozaril and sign in 07/15- says he will try a new approach to his decision making; agrees to continue taking Clozaril. Remains guarded, and with paranoid delusions 07/21 floridly psychotic with intense paranoid, persecutory delusions that are overwhelming patient into repeated unsafe thinking or behavior including suicide, and starvation and water deprivation. Patient has no insight and does not believe that medications help at all; he goes back and forth about whether to take medications as he's very anxious about contradicting his persecutors whom he believes give him messages directing his behavior. 07/23 pt again decided to stop taking medications, a frequent decision emerging every few days as patient again feels that it's safer to listen to his persecutors (paranoid delusions) then it is to go against their edict and take medications. Over the past 2 weeks, only after lengthy discussions, would patient change his mind and go back to taking medications; however this reversion is not due to any moment of insight but rather a combination of emotional exhaustion and him trying to find a loophole in his persecutors edict to not take medications. Pneumatic Jacketer reviewed case with Dr. Mcleod and other team members and it was discussed whether or not Dilshad needs a longer term hospitalization such as [facility]. Patient recently revealed that over the days/weeks prior to this admission, in addition to trying to starve/dehydrate himself to , he tried to kill himself 2x by Tylenol overdose, making automobile service writer more aware of the extent of his unsafe behavior. Patient remains without any insight at all. He is fully ove rwhelmed by persecutory delusions. At this point it is becoming increasing difficult for automobile service writer to imagine a scenario where Dilshad is safe outside of a longer term commitment where he is court ordered to take medications. For while he has indeed benefited from Clozapine (improved mood, relief from emotional anguish and reprieve from being contacted by persecutors [delusions]) his illness keeps him from attributing that benefit to medication; rather he maintains that medications are placebos and his relief is due to some other cause; and thus, on his own, patient's illness renders him unable to remain adherent with medications. However, if Dilshad had an extended hospital stay and remained on medications for an extended period of months, he may experience his relief from torture as a product of medications and thus achieve enough insight to remain on medications as an outpatient. Pneumatic Jacketer will continue to discuss case with colleagues, but is coming to the conclusion that patient requires [facility] admission for his safety. Barrier to discharge: Patient is floridly psychotic; he has no insight and suffers from paranoid, persecutory delusions believing he needs to either kill himself or engage in behaviors that will result in , in order to fulfill his persecutors demands; if discharged before stable, patient will quickly decompensate and be at high risk for suicide; he requires locked unit, and likely a prison admission, to resolve symptoms with medication management. PLAN: Condition court for substituted judgment, involuntary commitment Will consider petition/application for [facility] Signed 3 day notice on 07/23/21 Q 15 minutes checks for safety -Will petition court for involuntary commitment and substituted judgment. Will strongly consider application to [facility] - continue titrating Clozapine 100mg qhs; patient ambivalent about taking medications sometimes he does but other times he refuses; will leave in place in case he decides to take it -scheduled clonazepam 0.25 mg b.i.d. for anxiety while Clozaril is being titr ated -will use Ziprasidone p.r.n. Micromedex: 1) Rapid titration in hospitalized patients: Day 1, 50 mg orally followed by 50 to 100 mg as needed every 6 hours (up to an additional 150 mg). Thereafter, may increase daily dosage in increments of 50 to 100 mg. Mean dosage on day 1 was 207 mg/day in patients with prior clozapine exposure and 59.7 mg without prior exposure. Mean titration over 5.44 days to a dosage of 260 mg/day, lead to a mean dosage at discharge of 322 mg/day Sarika HEBERT, Peggy A, Wagner NG, et al: Rapid clozapine titration in patients with treatment refractory schizophrenia. Psychiatr Q 2016; 87(2):315-322. I spent minutes with the patient and/or on the patient floor today, greater than?50% of which was spent counseling/coordinating care. Reason for contiued inpatient stay Substantial Risk for: harm to self
[2021-07-26 06:39] VITALS: BP 115/72; PULSE 85; RESP 18; TEMP 35.2; O2SAT 95
[2021-07-26] MEDS: diphenhydrAMINE HCL 25 MG TABLET 50 MG PO (09:00)
[2021-07-26] MEDS: HaloperidoL 5 MG TABLET PO (09:25)
--- NOTE | 2021-07-26 09:59 | P.PNPSI_ITS ---
Subjective Subjective Date of Service: 07/26/21 Reason For Visit: Suicidal Interim History: Patient became extremely agitated this morning and needed several staff members to redirect him. He was saying today is the prophecy, written in the stars since he has a child, that he will . He kept repeating that his mind is under someone else's control and that nothing will help him. Patient was eventually willing to take p.r.n. medication after which time he slept. Patient refused clozapine last night but today agreed to continue taking clozapine at bedtime. Mental Status Exam Mental Status Exam Narrative: Pt is alert and oriented; behavior is severely agitated; unkempt hair and scruffy facial hair; mood is severely anguished; affect severe anguish; intense or no eye contact ; Speech is loud; psychomotor agitation present; thought process is perseverative;.? Thought content is overwhelmed with paranoid, persecutory delusions, desire to be ; suicidal ideation; intermittent SI as fulfillment of task assigned to him by persecutors; no HI.? Patient believes he receives messages through various avenues, or having thoughts planted in his head or through media which he avoids. Denies AvH. ?Patients insight and judgment are impaired Diagnostics Vital Signs (24Hr): Vital Signs - 24 hr 07/25/21 16:00 07/26/21 06:39 Temperature 98.1 F 95.4 F L Pulse Rate 93 85 Respiratory Rate 18 Blood Pressure 135/92 H 115/72 Pulse Oximetry 95 Labs Results: 07/25/21 08:28 Labs: Laboratory Results - last 48 hr 07/25/21 08:28 WBC 9.4 RBC 4.54 L Hgb 13.8 L Hct 40.9 L MCV 90.1 MCH 30.4 MCHC 33.7 RDW 13.5 Plt Count 210 MPV 9.8 Immature Gran % (Auto) 0.2 Neut % (Auto) 71.2 Lymph % (Auto) 19.4 L [place] % (Auto) 6.7 Eos % (Auto) 2.2 Baso % (Auto) 0.3 Lymph # (Auto) 1.8 [place] # (Auto) 0.6 Eos # (Auto) 0.2 Baso # (Auto) 0.0 Abs Immat Gran (auto) 0.02 Absolute Neuts (auto) 6.7 Absolute Nucleated RBC 0.000 Nucleated RBC % (auto) 0.0 Medications Medications Current Medications Acetaminophen (Acetaminophen 325 Mg Tablet) 650 mg PO Q6H PRN PRN Reason: Pain, Mild (Pain Scale 1-3) Al Hydroxide/Mg Hydroxide (Magnesium Hydrox/Alum Hydrox 30 Ml Oral.Susp) 30 ml PO Q6H PRN PRN Reason: Heartburn/Nausea Clonazepam (Clonazepam 0.5 Mg Tablet) 0.5 mg PO BID@0830,1630 [facility] Last Admin: 07/25/21 16:11 Dose: Not Given Documented by: Clonazepam (Clonazepam 0.5 Mg Tablet) 0.5 mg PO TID PRN PRN Reason: anxiety/agitation Clozapine 100 mg/ Clozapine 50 (mg) 150 mg PO BEDTIME [facility] Last Admin: 07/25/21 21:34 Dose: Not Given Documented by: Diphenhydramine HCl (Diphenhydramine Hcl 25 Mg Tablet) 50 mg PO Q4H PRN PRN Reason: agitation Last Admin: 07/26/21 09:00 Dose: 50 mg Documented by: Hydroxyzine HCl (Hydroxyzine Hcl 25 Mg Tablet) 25 mg PO BEDTIME PRN PRN Reason: Anxiety Magnesium Hydroxide (Milk Of Magnesia 30 Ml Oral.Susp) 30 ml PO DAILY PRN PRN Reason: Constipation Nicotine Polacrilex (Nicotine Polacrilex 2 Mg Gum) 2 mg BUCCAL Q2H PRN PRN Reason: Nicotine Cravings Trazodone HCl (Trazodone Hcl 50 Mg Tablet) 50 mg PO BEDTIME PRN PRN Reason: Insomnia Ziprasidone (Ziprasidone 20 Mg Capsule) 20 mg PO TID PRN PRN Reason: agitation Allergies Allergies Allergy/AdvReac Type Severity Reaction Status Date / Time olanzapine [OLANZAPINE] Allergy Severe FACIAL Verified 04/06/21 10:20 SWELLING Assessment & Plan Assessment & Plan (1) Schizoaffective disorder: Status: Chronic Code(s): F25.9 - Schizoaffective disorder, unspecified (2) Starvation ketoacidosis: Status: Resolved Code(s): E87.2 - Acidosis (3) PTSD (post-traumatic stress disorder): Status: Suspected Code(s): F43.10 - Post-traumatic stress disorder, unspecified Assessment and Plan: Impression: Patient is a 35-year-old male with history of schizophrenia, paranoid type who presents after her prolonged suicide by starvation, due to paranoid ideations in the face of going off medications, specifically clozapine. Patient was 1st admitted to the medical floor where he required fluid resuscitation, electro lytes replenished and treatment for starvation ketoacidosis, hypernatremia and acute kidney injury. Once resolved and medically cleared and transferred to psychiatric unit. Patient was recently discharged from the unit around 05/13/2021. HOspital course: Patient currently suffers from severe paranoid persecutory delusions that frequently direct him to harm himself in order to save his family from future torture. Patient has no insight. Currently refuses medications and remains on Section 12 B. he says he does not necessarily want to leave the hospital, nor does he want to stay but does not want to sign a CV worried that it will be unacceptable to his persecutors. -patient remains in severe mental anguish over what is the right thing to do, very worried about making the wrong decision which will aggravate his persecutors and therefor put his family in future jeopardy; patient eventually decided to sign a CV but then later signed a 3 day notice. He agreed to take Clozaril but then was again ambivalent. Patient remains willing to self-harm to the point of suicide based on paranoid delusions that he must do so in order to save his family from future torment. -over the weekend patient was screaming, out of control and required medication restraint 07/11 patient remains with joel paranoid, persecutory delusions, thoughts to starve himself to based on paranoid delusion, no insight and impaired judgment. -currently he is eating and drinking but only minimally 07/12 pt decided to take Clozaril 07/13: Patient is tormented seems to have reached a boiling point and he agreed to take Clozaril and sign in 07/15- says he will try a new approach to his decision making; agrees to continue taking Clozaril. Remains guarded, and with paranoid delusions 07/21 floridly psychotic with intense paranoid, persecutory delusions that are overwhelming patient into repeated unsafe thinking or behavior including suicide, and starvation and water deprivation. Patient has no insight and does not believe that medications help at all; he goes back and forth about whether to take medications as he's very anxious about contradicting his persecutors whom he believes give him messages directing his behavior. 07/23 pt again decided to stop taking medications, a frequent decision emerging every few days as patient again feels that it's safer to listen to his persecutors (paranoid delusions) then it is to go against their edict and take medications. Over the past 2 weeks, only after lengthy discussions, would patient change his mind and go back to taking medications; however this reversion is not due to any moment of insight but rather a combination of e motional exhaustion and him trying to find a loophole in his persecutors edict to not take medications. Pilot Teacher reviewed case with Dr. Mcleod and other team members and it was discussed whether or not Dilshad needs a longer term hospitalization such as [facility]. Patient recently revealed that over the days/weeks prior to this admission, in addition to trying to starve/dehydrate himself to , he tried to kill himself 2x by Tylenol overdose, making automobile service writer more aware of the extent of his unsafe behavior. Patient remains without any insight at all. He is fully overwhelmed by persecutory delusions. At this point it is becoming increasing difficult for automobile service writer to imagine a scenario where Dilshad is safe outside of a longer term commitment where he is court ordered to take medications. For while he has indeed benefited from Clozapine (improved mood, relief from emotional anguish and reprieve from being contacted by persecutors [delusions]) his illness keeps him from attributing that benefit to medication; rather he maintains that medications are placebos and his relief is due to some other caus e; and thus, on his own, patient's illness renders him unable to remain adherent with medications. However, if Dilshad had an extended hospital stay and remained on medications for an extended period of months, he may experience his relief from torture as a product of medications and thus achieve enough insight to remain on medications as an outpatient. Pilot Teacher will continue to discuss case with colleagues, but is coming to the conclusion that patient requires [facility] admission for his safety. Barrier to discharge: Patient is floridly psychotic; he has no insight and kamara ffers from paranoid, persecutory delusions believing he needs to either kill himself or engage in behaviors that will result in , in order to fulfill his persecutors demands; if discharged before stable, patient will quickly decompensate and be at high risk for suicide; he requires locked unit, and likely a auger operator admission, to resolve symptoms with medication management. PLAN: Condition court for substituted judgment, involuntary commitment Will consider petition/application for [facility] Signed 3 day notice on 07/23/21 Q 15 minutes checks for safety -Will petition court for involuntary commitment and substituted judgment. Will strongly consider application to [facility] - will leave Clozapine 100mg qhs; however given patient's ambivalence and intermittent refusal to take it, dose may have to be lowered. Will continue to monitor patient's willingness to take medications. -scheduled clonazepam 0.25 mg b.i.d. for anxiety while Clozaril is being titrated -will use Ziprasidone p.r.n. Micromedex: 1) Rapid titration in hospitalized patients: Day 1, 50 mg orally followed by 50 to 100 mg as needed every 6 hours (up to an additional 150 mg). Thereafter, may increase daily dosage in increments of 50 to 100 mg. Mean dosage on day 1 was 207 mg/day in patients with prior clozapine exposure and 59.7 mg without prior exposure. Mean titration over 5.44 days to a dosage of 260 mg/day, lead to a mean dosage at discharge of 322 mg/day Sarika CA, Peggy A, Wagner NG, et al: Rapid clozapine titration in patients with treatment refractory schizophrenia. Psychiatr Q 2016; 87(2):315-322. I spent minutes with the patient and/or on the patient floor today, greater than?50% of which was spent counseling/coordinating care. Reason for contiued inpatient stay Substantial Risk for: harm to self
[2021-07-26 11:19] LABS: Neut%MD 69.5 %; Neutrophils Absolute Auto 5.7 x10*3/uL (2.0-8.3); WBCANC 8.2 X10*3/uL
[2021-07-26] MEDS: clonazePAM 0.5 MG TABLET PO (18:23)
[2021-07-26] MEDS: cloZAPine 100 MG TABLET PO (19:56)
[2021-07-26 20:00] VITALS: BP 101/58; PULSE 77; TEMP 36.6
[2021-07-27 06:00] VITALS: BP 115/81; PULSE 83; RESP 16; TEMP 36.2; O2SAT 97
[2021-07-27] MEDS: clonazePAM 0.5 MG TABLET PO ×2 (08:42→16:24)
--- NOTE | 2021-07-27 14:48 | P.PNPSI_ITS ---
Subjective Subjective Date of Service: 07/27/21 Reason For Visit: Suicidal Subjective Notes: Section 7 Interim History: Pt in bed, very guarded, questioning if he really had to speak with this senior writer because he would not like to speak with anyone at this time. He reports suicidal ideation but denies any plan or intent. Per nursing, pt continues to report that he will , tortured by persecutory delusions, psychosis with minimal insight into psychiatric symptoms and need for treatment. Pt has been mostly in bed, not interacting with peers or others. Medication Compliance: Intermittent Side effects from medications: No Attending Groups: No Review of Systems Acute medical concerns: No Review of Systems Review of Systems unable to engage for complete evaluation Yes all other systems are reviewed and are negative Constitutional: Denies frequent falls Denies frequent falls Mental Status Exam Mental Status Exam Narrative: Pt is alert and oriented to year, place but not situation; behavior is severely guarded/suspicious; unkempt hair and scruffy facial hair; mood is severely anguished; affect severe anguish; intense or no eye contact ; Speech is clear, delay response rate/spontaneous; psychomotor agitation present; thought process is perseverative;.? Thought content is overwhelmed with paranoid, persecutory delusions, desire to be ; suicidal ideation; intermittent SI as fulfillment of task assigned to him by persecutors- denies any plan ir intent to hurt himself; no HI.? Patient believes he receives messages through various avenues, or having thoughts planted in his head or through media which he avoids. Denies AvH. ?Patients insight and judgment are impaired Diagnostics Vital Signs (24Hr): Vital Signs - 24 hr 07/26/21 20:00 07/27/21 06:00 Temperature 97.8 F 97.2 F Pulse Rate 77 83 Respiratory Rate 16 Blood Pressure 101/58 L 115/81 Pulse Oximetry 97 Labs Results: 07/25/21 08:28 Labs: Laboratory Results - last 48 hr 07/26/21 10:57 Absolute Neuts (auto) 5.7 Medications Medications Current Medications Acetaminophen (Acetaminophen 325 Mg Tablet) 650 mg PO Q6H PRN PRN Reason: Pain, Mild (Pain Scale 1-3) Al Hydroxide/Mg Hydroxide (Magnesium Hydrox/Alum Hydrox 30 Ml Oral.Susp) 30 ml PO Q6H PRN PRN Reason: Heartburn/Nausea Clonazepam (Clonazepam 0.5 Mg Tablet) 0.5 mg PO BID@0830,1630 [facility] Last Admin: 07/27/21 08:42 Dose: 0.5 mg Documented by: Clonazepam (Clonazepam 0.5 Mg Tablet) 0.5 mg PO TID PRN PRN Reason: anxiety/agitation Clozapine (Clozapine 100 Mg Tablet) 100 mg PO BEDTIME [facility] Last Admin: 07/26/21 19:56 Dose: 100 mg Documented by: Diphenhydramine HCl (Diphenhydramine Hcl 25 Mg Tablet) 50 mg PO Q4H PRN PRN Reason: agitation Last Admin: 07/26/21 09:00 Dose: 50 mg Documented by: Hydroxyzine HCl (Hydroxyzine Hcl 25 Mg Tablet) 25 mg PO BEDTIME PRN PRN Reason: Anxiety Magnesium Hydroxide (Milk Of Magnesia 30 Ml Oral.Susp) 30 ml PO DAILY PRN PRN Reason: Constipation Nicotine Polacrilex (Nicotine Polacrilex 2 Mg Gum) 2 mg BUCCAL Q2H PRN PRN Reason: Nicotine Cravings Trazodone HCl (Trazodone Hcl 50 Mg Tablet) 50 mg PO BEDTIME PRN PRN Reason: Insomnia Ziprasidone (Ziprasidone 20 Mg Capsule) 20 mg PO TID PRN PRN Reason: agitation Allergies Allergies Allergy/AdvReac Type Severity Reaction Status Date / Time olanzapine [OLANZAPINE] Allergy Severe FACIAL Verified 04/06/21 10:20 SWELLING Assessment & Plan Assessment & Plan (1) Schizoaffective disorder: Status: Chronic Code(s): F25.9 - Schizoaffective disorder, unspecified (2) Starvation ketoacidosis: Status: Resolved Code(s): E87.2 - Acidosis (3) PTSD (post-traumatic stress disorder): Status: Suspected Code(s): F43.10 - Post-traumatic stress disorder, unspecified Assessment and Plan: Impression: Patient is a 35-year-old male with history of schizophrenia, paranoid type who presents after her prolonged suicide by starvation, due to paranoid ideations in the face of going off medications, specifically clozapine. Patient was 1st admitted to the medical floor where he required fluid resuscitation, electrolytes replenished and treatment for starvation ketoacidosis, hypernatr emia and acute kidney injury. Once resolved and medically cleared and transferred to psychiatric unit. Patient was recently discharged from the unit around 05/13/2021. HOspital course: Patient currently suffers from severe paranoid persecutory delusions that frequently direct him to harm himself in order to save his family from future torture. Patient has no insight. Currently refuses medications and remains on Section 12 B. he says he does not necessarily want to leave the hospital, nor does he want to stay but does not want to sign a CV worried that it will be un acceptable to his persecutors. -patient remains in severe mental anguish over what is the right thing to do, very worried about making the wrong decision which will aggravate his persecutors and therefor put his family in future jeopardy; patient eventually decided to sign a CV but then later signed a 3 day notice. He agreed to take Clozaril but then was again ambivalent. Patient remains willing to self-harm to the point of suicide based on paranoid delusions that he must do so in order to save his family from future torment. -over the weekend patient was screaming, out of control and required medication restraint 07/11 patient remains with joel paranoid, persecutory delusions, thoughts to starve himself to based on paranoid delusion, no insight and impaired judgment. -currently he is eating and drinking but only minimally 07/12 pt decided to take Clozaril 07/13: Patient is tormented seems to have reached a boiling point and he agreed to take Clozaril and sign in 07/15- says he will try a new approach to his decision making; agrees to continue taking Clozaril. Remains guarded, and with paranoid delusions 07/21 floridly psychotic with intense paranoid, persecutory delusions that are overwhelming patient into repeated unsafe thinking or behavior including suicide, and starvation and water deprivation. Patient has no insight and does not believe that medications help at all; he goes back and forth about whether to take medications as he's very anxious about contradicting his persecutors whom he believes give him messages directing his behavior. 07/23 pt again decided to stop taking medications, a frequent decision emerging every few days as patient again feels that it's safer to listen to his persecutors (paranoid delusions) then it is to go against their edict and take medications. Over the past 2 weeks, only after lengthy discussions, would patient change his mind and go back to taking medications; however this reversion is not due to any moment of insight but rather a combination of emotional exhaustion and him trying to find a loophole in his persecutors edict to not take medications. Surfboard Designer reviewed case with Dr. Mcleod and other team members and it was discussed whether or not Dilshad needs a longer term hospitalization such as [facility]. Patient recently revealed that over the days/weeks prior to this admission, in addition to trying to starve/dehydrate himself to , he tried to kill himself 2x by Tylenol overdose, making senior writer more aware of the extent of his unsafe behavior. Patient remains without any insight at all. He is fully overwhe lmed by persecutory delusions. At this point it is becoming increasing difficult for senior writer to imagine a scenario where Dilshad is safe outside of a longer term commitment where he is court ordered to take medications. For while he has indeed benefited from Clozapine (improved mood, relief from emotional anguish and reprieve from being contacted by persecutors [delusions]) his illness keeps him from attributing that benefit to medication; rather he maintains that medications are placebos and his relief is due to some other cause; and thus, on his own, patient's illness renders him unable to remain adherent with medications. However, if Dilshad had an extended hospital stay and remained on medications for an extended period of months, he may experience his relief from torture as a product of medications and thus achieve enough insight to remain on medications as an outpatient. Surfboard Designer will continue to discuss case with colleagues, but is coming to the conclusion that patient requires [facility] ad mission for his safety. Barrier to discharge: Patient is floridly psychotic; he has no insight and suffers from paranoid, persecutory delusions believing he needs to either kill himself or engage in behaviors that will result in , in order to fulfill his persecutors demands; if discharged before stable, patient will quickly decompensate and be at high risk for suicide; he requires locked unit, and likely a long term care social worker admission, to resolve symptoms with medication management. PLAN: Condition court for substituted judgment, involuntary commitment Will consider petition/application for [facility] Signed 3 day notice on 07/23/21- Petition to court filed- on Section 7 Q 15 minutes checks for safety -Will petition court for involuntary commitment and substituted judgment. Will strongly consider application to [employer] - will leave Clozapine 100mg qhs; however given patient's ambivalence and intermittent refusal to take it, dose may have to be lowered. Will continue to monitor patient's willingness to take medications. -scheduled clonazepam 0.25 mg b.i.d. for anxiety while Clozaril is being titrated -will use Ziprasidone p.r.n. Micromedex: 1) Rapid titration in hospitalized patients: Day 1, 50 mg orally followed by 50 to 100 mg as needed every 6 hours (up to an additional 150 mg). Thereafter, may increase daily dosage in increments of 50 to 100 mg. Mean dosage on day 1 was 207 mg/day in patients with prior clozapine exposure and 59.7 mg without prior exposure. Mean titration over 5.44 days to a dosage of 260 mg/day, lead to a mean dosage at discharge of 322 mg/day Sarika HEBERT, Peggy A, Wagner NG, et al: Rapid clozapine titration in patients with treatment refractory schizophrenia. Psychiatr Q 2016; 87(2):315-322. I spent minutes with the patient and/or on the patient floor today, greater than?50% of which was spent counseling/coordinating care. Reason for contiued inpatient stay Substantial Risk for: harm to self and inability to function
[2021-07-27 18:00] VITALS: BP 109/62; PULSE 59; RESP 16; TEMP 36.1; O2SAT 98
[2021-07-27] MEDS: cloZAPine 100 MG TABLET PO (20:40)
[2021-07-28 06:00] VITALS: BP 109/63; PULSE 84; RESP 15; TEMP 36.5; O2SAT 97
[2021-07-28] MEDS: clonazePAM 0.5 MG TABLET PO ×2 (08:33→16:05)
--- NOTE | 2021-07-28 10:12 | P.PNPSI_ITS ---
Subjective Subjective Date of Service: 07/28/21 Reason For Visit: Suicidal Subjective Notes: [place] Warning Healthcare Proxy: No Guardianship: No Medical Problems Affecting Mental Status: No Interim History: Pt atarted medication af few days ago - doing a bit better - still si wondering when court date would be - if 7days exactly or if holiday is not counted like weekends are not counted Medication Compliance: Yes Side effects from medications: Yes (constipation) Attending Groups: No Review of Systems Acute medical concerns: No Medical Review of Systems: unchanged Review of Systems Review of Systems some constipation from medication- Mental Status Exam Mental Status Exam Narrative: apcing quietyl in [place] Patient Appearance: Disheveled Patient Orientation: Person, Place and Situation Level of Consciousness: Awake Patient Behavior: Guarded Mood Description: Calm and Apathetic Affect Description: Constricted Patient Cognition Impaired: No Ability to Follow Directions: Fair Speech Pattern: Clear Memory Description: Intact Hallucinations: None Delusions: Paranoid Ideation Thought Process: Linear Thought Content: positive for Goal Oriented and positive for Poverty of Content Depressive Symptoms: Feelings of Worthlessness and Hopelessness Abnormal Motor Activity Signs and Symptoms: Muscle Rigidity Judgement: Poor Diagnostics Vital Signs (24Hr): Vital Signs - 24 hr 07/27/21 18:00 07/28/21 06:00 Temperature 97 F 97.7 F Pulse Rate 59 84 Respiratory Rate 16 15 Blood Pressure 109/62 109/63 Pulse Oximetry 98 97 Labs Results: 07/25/21 08:28 Labs: Laboratory Results - last 48 hr 07/26/21 10:57 Absolute Neuts (auto) 5.7 Medications Medications Current Medications Acetaminophen (Acetaminophen 325 Mg Tablet) 650 mg PO Q6H PRN PRN Reason: Pain, Mild (Pain Scale 1-3) Al Hydroxide/Mg Hydroxide (Magnesium Hydrox/Alum Hydrox 30 Ml Oral.Susp) 30 ml PO Q6H PRN PRN Reason: Heartburn/Nausea Clonazepam (Clonazepam 0.5 Mg Tablet) 0.5 mg PO BID@0830,1630 [facility] Last Admin: 07/28/21 08:33 Dose: 0.5 mg Documented by: Clonazepam (Clonazepam 0.5 Mg Tablet) 0.5 mg PO TID PRN PRN Reason: anxiety/agitation Clozapine (Clozapine 100 Mg Tablet) 100 mg PO BEDTIME [facility] Last Admin: 07/27/21 20:40 Dose: 100 mg Documented by: Diphenhydramine HCl (Diphenhydramine Hcl 25 Mg Tablet) 50 mg PO Q4H PRN PRN Reason: agitation Last Admin: 07/26/21 09:00 Dose: 50 mg Documented by: Hydroxyzine HCl (Hydroxyzine Hcl 25 Mg Tablet) 25 mg PO BEDTIME PRN PRN Reason: Anxiety Magnesium Hydroxide (Milk Of Magnesia 30 Ml Oral.Susp) 30 ml PO DAILY PRN PRN Reason: Constipation Nicotine Polacrilex (Nicotine Polacrilex 2 Mg Gum) 2 mg BUCCAL Q2H PRN PRN Reason: Nicotine Cravings Trazodone HCl (Trazodone Hcl 50 Mg Tablet) 50 mg PO BEDTIME PRN PRN Reason: Insomnia Ziprasidone (Ziprasidone 20 Mg Capsule) 20 mg PO TID PRN PRN Reason: agitation Allergies Allergies Allergy/AdvReac Type Severity Reaction Status Date / Time olanzapine [OLANZAPINE] Allergy Severe FACIAL Verified 04/06/21 10:20 SWELLING Assessment & Plan Assessment & Plan (1) Schizoaffective disorder: Status: Chronic Code(s): F25.9 - Schizoaffective disorder, unspecified Assessment and Plan: started meds few days ago - tolerating so far- maybe calmer due to it (2) Starvation ketoacidosis: Status: Resolved Code(s): E87.2 - Acidosis (3) PTSD (post-traumatic stress disorder): Status: Suspected Code(s): F43.10 - Post-traumatic stress disorder, unspecified Assessment and Plan: Impression: 2nd attempt in short time attempt to kill himself by starvation- restarted meds few days ago ? under pending sec 8 . HOspital course: Patient currently suffers from severe paranoid persecutory delusions that frequently direct him to harm himself in order to save his family from future torture. Patient has no insight. Barrier to discharge: still suicidal PLAN: pending court for sec 7 and 9 Will consider petition/application for [facility] Signed 3 day notice on 07/23/21- Petition to court filed- on Section 7 Q 15 minutes checks for safety has restarted clozpaine slept - -scheduled clonazepam 0.25 mg b.i.d. for anxiety while Clozaril is being titrated -will use Ziprasidone p.r.n. I spent minutes with the patient and/or on the patient floor today, greater than?50% of which was spent counseling/coordinating care. Patient educated on: other (court pending) Informed Consent: further education needed Reason for contiued inpatient stay Substantial Risk for: harm to self and rapid decompensation
[2021-07-28 16:35] VITALS: BP 110/90; PULSE 97; TEMP 36.9
[2021-07-28] MEDS: cloZAPine 100 MG TABLET PO (19:17)
[2021-07-29 06:00] VITALS: BP 104/67; PULSE 79; RESP 18; TEMP 36.6; O2SAT 96
[2021-07-29] MEDS: clonazePAM 0.5 MG TABLET PO ×2 (08:14→16:30)
--- NOTE | 2021-07-29 09:30 | P.PNPSI_ITS ---
Subjective Subjective Date of Service: 07/29/21 Reason For Visit: Suicidal Interim History: Patient met with his lower and rescind his 3 day notice. Patient says his mood is good and that he has feeling better for the most part, taking care of self and taking his medications Patient reports having had a realization. He says that I have given up trying to please this on please will entity... When the task does not even make logical sense. Patient says knows this force has planted thoughts, suggestions...ideas in [his] mind and explains that the fact he is being told to abstain from urinating for an extended period of time, which he knows is impossible, in order to obtain some future benefit for his family is obviously a lie and therefore it does not make sense to continue to abide by this entity/torture's edict. He says he has been realizing there is a lot that does not make sense about it. So, he reports there's a lot of freedom in giving up... and says he is going to just trust what this contract technical writer said, that his best option is to continue taking medications. Patient said he is unsure about whether he should still pursue going before court and a chiropractor assistant however he says he will leave that up to this contract technical writer. Material Dispatcher explains that in the past patient has taking medications only to discontinue taking them on discharge which is a lingering concerns. Patient sa ys he understands and that it is again up to this contract technical writer whether or not to pursue court. Regarding outpatient treatment, patient says he does not trust therapist since they violated his trust in the past. He did not go to outpatient psychiatric provider because he did not know that person but says that perhaps he can get to know that person prior to discharge which might make it easier for him to make appointments. Of note, staff reports this past patient engaged with staff peers he spent several hours in group making [email or web address] and playing board games with peers reportedly enjoying himself. Mental Status Exam Mental Status Exam Narrative: Pt is alert and oriented; behavior is cooperative, friendly and calm; patient is not in distress; dressed in casual attire with clean shaven face; mood is described as good and affect congruent, brighter; eye contact appropriate; Speech is normal rate, volume and prosody and not pressured; no psychomotor agitation/retardation present; thought process is organized and goal directed; Thought content is on trying to ignore the edicts told to him via thought implantation (or other modes of communication (no AVH)) and instead focusing on taking care of himself; remains w/out insight, but improved judgment (taking me dications/eating and drinking); denies any SI/HI. Diagnostics Vital Signs (24Hr): Vital Signs - 24 hr 07/28/21 16:35 07/29/21 06:00 Temperature 98.4 F 98 F Pulse Rate 97 79 Respiratory Rate 18 Blood Pressure 110/90 H 104/67 Pulse Oximetry 96 Labs Results: 07/25/21 08:28 Medications Medications Current Medications Acetaminophen (Acetaminophen 325 Mg Tablet) 650 mg PO Q6H PRN PRN Reason: Pain, Mild (Pain Scale 1-3) Al Hydroxide/Mg Hydroxide (Magnesium Hydrox/Alum Hydrox 30 Ml Oral.Susp) 30 ml PO Q6H PRN PRN Reason: Heartburn/Nausea Clonazepam (Clonazepam 0.5 Mg Tablet) 0.5 mg PO BID@0830,1630 [facility] Last Admin: 07/29/21 08:14 Dose: 0.5 mg Documented by: Clonazepam (Clonazepam 0.5 Mg Tablet) 0.5 mg PO TID PRN PRN Reason: anxiety/agitation Clozapine (Clozapine 100 Mg Tablet) 100 mg PO BEDTIME [facility] Last Admin: 07/28/21 19:17 Dose: 100 mg Documented by: Diphenhydramine HCl (Diphenhydramine Hcl 25 Mg Tablet) 50 mg PO Q4H PRN PRN Reason: agitation Last Admin: 07/26/21 09:00 Dose: 50 mg Documented by: Hydroxyzine HCl (Hydroxyzine Hcl 25 Mg Tablet) 25 mg PO BEDTIME PRN PRN Reason: Anxiety Magnesium Hydroxide (Milk Of Magnesia 30 Ml Oral.Susp) 30 ml PO DAILY PRN PRN Reason: Constipation Nicotine Polacrilex (Nicotine Polacrilex 2 Mg Gum) 2 mg BUCCAL Q2H PRN PRN Reason: Nicotine Cravings Trazodone HCl (Trazodone Hcl 50 Mg Tablet) 50 mg PO BEDTIME PRN PRN Reason: Insomnia Ziprasidone (Ziprasidone 20 Mg Capsule) 20 mg PO TID PRN PRN Reason: agitation Allergies Allergies Allergy/AdvReac Type Severity Reaction Status Date / Time olanzapine [OLANZAPINE] Allergy Severe FACIAL Verified 04/06/21 10:20 SWELLING Assessment & Plan Assessment & Plan (1) Schizoaffective disorder: Status: Chronic Code(s): F25.9 - Schizoaffective disorder, unspecified Assessment and Plan: started meds few days ago - tolerating so far- maybe calmer due to it (2) Starvation ketoacidosis: Status: Resolved Code(s): E87.2 - Acidosis (3) PTSD (post-traumatic stress disorder): Status: Suspected Code(s): F43.10 - Post-traumatic stress disorder, unspecified Assessment and Plan: Impression: History of paranoid persecutory delusions that command him to engage in d angerous life-threatening activities to which patient has complied (starvation/depravation of all fluids; overdose on Tylenol) HOspital course: Patient currently suffers from severe paranoid persecutory delusions that frequently direct him to harm himself in order to save his family from future torture. Patient has no insight. on 07/29 Patient rescinded his 3 day notice decided he will try and ignore the commands from what he considers communications from his torture (thought implantation) and instead trust that taking medications will help. Patient says this is a big risk and at the stakes are high but he has come to the conclusion that they his persecutor will always lie and tick him and thus he might as well trust treatment. This is welcome news however patient has in the past immediately stop taking medications upon discharge and then quickly become a danger to himself. Will monitor patient's progress; however will continue to consider possible need for [facility]. PLAN: Rescinded 3 day; will hold off going to court (was pending court for sec 7 and 9) Q 15 minutes checks for safety Patient has been taking Clozaril Increase Clozaril to 150 mg; will titrate to 200 mg as tolerated and then reassess -scheduled clonazepam 0.25 mg b.i.d. for anxiety while Clozaril is being titrated -will use Ziprasidone p.r.n. I spent minutes with the patient and/or on the patient floor today, greater than?50% of which was spent counseling/coordinating care. Reason for contiued inpatient stay Substantial Risk for: harm to self
[2021-07-29] MEDS: cloZAPine 25 MG TABLET 150 MG PO (21:48)
[2021-07-30 06:00] VITALS: BP 111/72; PULSE 78; RESP 16; TEMP 36.8; O2SAT 96
[2021-07-30] MEDS: clonazePAM 0.5 MG TABLET PO ×2 (08:10→16:32)
--- NOTE | 2021-07-30 12:25 | HO.PSYCHPN ---
Subjective Subjective Date of Service: 07/30/21 Reason For Visit: Suicidal Subjective Notes: Section 7 (?cv) Healthcare Proxy: No Guardianship: No Medical Problems Affecting Mental Status: No Interim History: didn't want to discuss meds or cv , or symptoms today Medication Compliance: Intermittent Side effects from medications: No Attending Groups: No Review of Systems Acute medical concerns: No Medical Review of Systems: unchanged Mental Status Exam Mental Status Exam Narrative: lying in bed Patient Appearance: Disheveled Patient Orientation: Person, Place and Situation Level of Consciousness: Drowsy Patient Behavior: Guarded Mood Description: Apathetic Affect Description: Constricted Patient Cognition Impaired: No Ability to Follow Directions: Fair Speech Pattern: Clear Memory Description: Intact Hallucinations: None Delusions: Paranoid Ideation Thought Process: Linear Thought Content: positive for Goal Oriented and positive for Poverty of Content Depressive Symptoms: Feelings of Worthlessness and Hopelessness Abnormal Motor Activity Signs and Symptoms: Muscle Rigidity Judgement: Poor Diagnostics Vital Signs (24Hr): Vital Signs - 24 hr 07/30/21 06:00 Temperature 98.2 F Pulse Rate 78 Respiratory Rate 16 Blood Pressure 111/72 Pulse Oximetry 96 Labs Results: 07/25/21 08:28 Medications Medications Current Medications Acetaminophen (Acetaminophen 325 Mg Tablet) 650 mg PO Q6H PRN PRN Reason: Pain, Mild (Pain Scale 1-3) Al Hydroxide/Mg Hydroxide (Magnesium Hydrox/Alum Hydrox 30 Ml Oral.Susp) 30 ml PO Q6H PRN PRN Reason: Heartburn/Nausea Clonazepam (Clonazepam 0.5 Mg Tablet) 0.5 mg PO BID@0830,1630 [facility] Last Admin: 07/30/21 08:10 Dose: 0.5 mg Documented by: Clonazepam (Clonazepam 0.5 Mg Tablet) 0.5 mg PO TID PRN PRN Reason: anxiety/agitation Clozapine (Clozapine 25 Mg Tablet) 150 mg PO BEDTIME [facility] Last Admin: 07/29/21 21:48 Dose: 150 mg Documented by: Diphenhydramine HCl (Diphenhydramine Hcl 25 Mg Tablet) 50 mg PO Q4H PRN PRN Reason: agitation Last Admin: 07/26/21 09:00 Dose: 50 mg Documented by: Hydroxyzine HCl (Hydroxyzine Hcl 25 Mg Tablet) 25 mg PO BEDTIME PRN PRN Reason: Anxiety Magnesium Hydroxide (Milk Of Magnesia 30 Ml Oral.Susp) 30 ml PO DAILY PRN PRN Reason: Constipation Nicotine Polacrilex (Nicotine Polacrilex 2 Mg Gum) 2 mg BUCCAL Q2H PRN PRN Reason: Nicotine Cravings Trazodone HCl (Trazodone Hcl 50 Mg Tablet) 50 mg PO BEDTIME PRN PRN Reason: Insomnia Ziprasidone (Ziprasidone 20 Mg Capsule) 20 mg PO TID PRN PRN Reason: agitation Allergies Allergies Allergy/AdvReac Type Severity Reaction Status Date / Time olanzapine [OLANZAPINE] Allergy Severe FACIAL Verified 04/06/21 10:20 SWELLING Assessment & Plan Assessment & Plan (1) Schizoaffective disorder: Status: Chronic Code(s): F25.9 - Schizoaffective disorder, unspecified Assessment and Plan: started meds few days ago - tolerating so far- maybe calmer due to it still pretty shut down (2) Starvation ketoacidosis: Status: Resolved Code(s): E87.2 - Acidosis Assessment and Plan: denies current plan for this (3) PTSD (post-traumatic stress disorder): Status: Suspected Code(s): F43.10 - Post-traumatic stress disorder, unspecified Assessment and Plan: Impression: History of paranoid persecutory delusions that command him to engage in dangerous life-threatening activities to which patient has complied (starvation/depravation of all fluids; overdose on Tylenol) HOspital course: 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 Patient has no insight. on 07/29 Patient rescinded his 3 day notice decided he will try and ignore the commands from what he considers communications from his torture (thought implantation) and instead trust that taking medications will help. Patient says this is a big risk and at the stakes are high but he has come to the conclusion that they his persecutor will always lie and tick him and thus he might as well trust treatment. This is welcome news however patient has in the past immediately stop taking medications upon discharge and then quickly become a danger to himself. Will monitor patient's progress; however will continue to consider possible need for Vibra. PLAN: Rescinded 3 day; will hold off going to court (was pending court for sec 7 and 9) Q 15 minutes checks for safety Patient has been taking Clozaril Increase Clozaril to 150 mg; will titrate to 200 mg as tolerated and then reassess -scheduled clonazepam 0.25 mg b.i.d. for anxiety while Clozaril is being titrated -will use Ziprasidone p.r.n. I spent minutes with the patient and/or on the patient floor today, greater than?50% of which was spent counseling/coordinating care. Informed Consent: further education needed Reason for contiued inpatient stay Substantial Risk for: harm to self and rapid decompensation
[2021-07-30 18:00] VITALS: BP 109/64; PULSE 88
[2021-07-30] MEDS: cloZAPine 25 MG TABLET 150 MG PO (19:38)
[2021-07-31 06:00] VITALS: BP 108/70; PULSE 90; RESP 16; TEMP 36.8; O2SAT 97
[2021-07-31] MEDS: clonazePAM 0.5 MG TABLET PO (08:16)
--- NOTE | 2021-07-31 10:56 | PM.PSYDC ---
DS: Providers Provider Date of admission: 07/05/21 16:31 Primary care physician: Unknown Physician DS: Diagnosis Discharge Diagnosis (1) Schizoaffective disorder: Status: Chronic (2) Starvation ketoacidosis: Status: Resolved (3) PTSD (post-traumatic stress disorder): Status: Suspected DS: Medications Discharge Medications Home Medications: Home Medications Medication Instructions Recorded Confirmed No Known Home Meds 07/04/21 07/10/21 Data Data Completed and Pending Completed studies during hospitalization [Text1]: 07/25/21 07/26/21 08:28 10:57 WBC 9.4 RBC 4.54 L Hgb 13.8 L Hct 40.9 L MCV 90.1 MCH 30.4 MCHC 33.7 RDW 13.5 Plt Count 210 MPV 9.8 Immature Gran % (Auto) 0.2 Neut % (Auto) 71.2 Lymph % (Auto) 19.4 L [place] % (Auto) 6.7 Eos % (Auto) 2.2 Baso % (Auto) 0.3 Lymph # (Auto) 1.8 [place] # (Auto) 0.6 Eos # (Auto) 0.2 Baso # (Auto) 0.0 Abs Immat Gran (auto) 0.02 Absolute Neuts (auto) 6.7 5.7 Absolute Nucleated RBC 0.000 Nucleated RBC % (auto) 0.0 DS: Summary Time Spent with Patient Time attestation: Total time spent providing and/or coordinating discharge services: Discharge Plan Discharge Referrals: Physician,See J [Primary Care Provider] - 1 Week Discharge Medications: No Action No Known Home Meds RF: 0
--- NOTE | 2021-07-31 10:57 | HO.PSYCHPN ---
Subjective Subjective Date of Service: 07/31/21 Reason For Visit: Suicidal Subjective Notes: Other (sec droped after signing voluntary and taking medications for now) Healthcare Proxy: No Guardianship: No Medical Problems Affecting Mental Status: No Interim History: Patient withdrawn, taking medications not wanting to discuss psychiatric symptoms. Eating, sleeping, taking medications denies active SI Medication Compliance: Yes Side effects from medications: No Attending Groups: No Review of Systems Acute medical concerns: No Medical Review of Systems: unchanged Mental Status Exam Mental Status Exam Narrative: lying in bed Patient Appearance: Disheveled Patient Orientation: Person, Place and Situation Level of Consciousness: Drowsy Patient Behavior: Guarded Mood Description: Apathetic Affect Description: Constricted Patient Cognition Impaired: No Ability to Follow Directions: Fair Speech Pattern: Clear Memory Description: Intact Hallucinations: None Delusions: Paranoid Ideation Thought Process: Linear Thought Content: positive for Goal Oriented and positive for Poverty of Content Depressive Symptoms: Feelings of Worthlessness and Hopelessness Abnormal Motor Activity Signs and Symptoms: Muscle Rigidity Judgement: Poor Diagnostics Vital Signs (24Hr): Vital Signs - 24 hr 07/30/21 18:00 07/31/21 06:00 Temperature 98.3 F Pulse Rate 88 90 Respiratory Rate 16 Blood Pressure 109/64 108/70 Pulse Oximetry 97 Labs Results: 07/25/21 08:28 Medications Medications Current Medications Acetaminophen (Acetaminophen 325 Mg Tablet) 650 mg PO Q6H PRN PRN Reason: Pain, Mild (Pain Scale 1-3) Al Hydroxide/Mg Hydroxide (Magnesium Hydrox/Alum Hydrox 30 Ml Oral.Susp) 30 ml PO Q6H PRN PRN Reason: Heartburn/Nausea Clozapine (Clozapine 25 Mg Tablet) 150 mg PO BEDTIME [facility] Last Admin: 07/30/21 19:38 Dose: 150 mg Documented by: Diphenhydramine HCl (Diphenhydramine Hcl 25 Mg Tablet) 50 mg PO Q4H PRN PRN Reason: agitation Last Admin: 07/26/21 09:00 Dose: 50 mg Documented by: Hydroxyzine HCl (Hydroxyzine Hcl 25 Mg Tablet) 25 mg PO BEDTIME PRN PRN Reason: Anxiety Magnesium Hydroxide (Milk Of Magnesia 30 Ml Oral.Susp) 30 ml PO DAILY PRN PRN Reason: Constipation Nicotine Polacrilex (Nicotine Polacrilex 2 Mg Gum) 2 mg BUCCAL Q2H PRN PRN Reason: Nicotine Cravings Trazodone HCl (Trazodone Hcl 50 Mg Tablet) 50 mg PO BEDTIME PRN PRN Reason: Insomnia Ziprasidone (Ziprasidone 20 Mg Capsule) 20 mg PO TID PRN PRN Reason: agitation Allergies Allergies Allergy/AdvReac Type Severity Reaction Status Date / Time olanzapine [OLANZAPINE] Allergy Severe FACIAL Verified 04/06/21 10:20 SWELLING Assessment & Plan Assessment & Plan (1) Schizoaffective disorder: Status: Chronic Code(s): F25.9 - Schizoaffective disorder, unspecified Assessment and Plan: started meds few days ago - tolerating so far- maybe calmer due to it still pretty shut down (2) Starvation ketoacidosis: Status: Resolved Code(s): E87.2 - Acidosis Assessment and Plan: denies current plan for this (3) PTSD (post-traumatic stress disorder): Status: Suspected Code(s): F43.10 - Post-traumatic stress disorder, unspecified Assessment and Plan: Impression: History of paranoid persecutory delusions that command him to engage in dangerous life-threatening activities to which patient has complied (starvation/depravation of all fluids; overdose on Tylenol) HOspital course: 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 Patient has no insight. on 07/29 Patient rescinded his 3 day notice decided he will try and ignore the commands from what he considers communications from his torture (thought implantation) and instead trust that taking medications will help. Patient says this is a big risk and at the stakes are high but he has come to the conclusion that they his persecutor will always lie and tick him and thus he might as well trust treatment. This is welcome news however patient has in the past immediately stop taking medications upon discharge and then quickly become a danger to himself. Will monitor patient's progress; however will continue to consider possible need for Vibra. PLAN: Rescinded 3 day; will hold off going to court (was pending court for sec 7 and 9) Q 15 minutes checks for safety Patient has been taking Clozaril Increase Clozaril to 150 mg; will titrate to 200 mg as tolerated and then reassess -scheduled clonazepam 0.25 mg b.i.d. for anxiety while Clozaril is being titrated -will use Ziprasidone p.r.n. I spent minutes with the patient and/or on the patient floor today, greater than?50% of which was spent counseling/coordinating care. Informed Consent: further education needed Reason for contiued inpatient stay Substantial Risk for: harm to self and rapid decompensation
[2021-07-31 17:22] VITALS: BP 110/69; PULSE 86; TEMP 36.6
[2021-07-31] MEDS: cloZAPine 25 MG TABLET 150 MG PO (19:24)
[2021-08-01 06:00] VITALS: BP 106/75; PULSE 88; RESP 16; TEMP 36.6; O2SAT 97
[2021-08-01 08:40] LABS: MANUAL DIFF FLAG NO
[2021-08-01 08:47] LABS: Basophils Absolute Auto 0.1 X10*3/uL (0.0-0.2); Basophils Percent Auto 0.4 % (0-2); Eosinophils Absolute Auto 0.3 X10*3/uL (0.0-0.4); Eosinophils Percent Auto 2.8 % (0-4); Hematocrit 42.6 % (42.0-52.0); Hemoglobin 14.4 g/dl (14.0-18.0); Imm Gran Abs Auto 0.07 X10*3/uL (0.00-0.03); Imm Gran Pct Auto 0.6 % (0.0-0.4); Lymphocytes Percent Auto 17.3 % (20-40); Mean Corpuscular HGB Conc 33.8 g/dl (31.0-36.0); Mean Corpuscular Hemoglobin 30.3 pg (27.0-33.0); Mean Corpuscular Volume 89.7 fL (80.0-98.0); Monocytes Absolute Auto 1.1 X10*3/uL (0.1-1.2); Monocytes Percent Auto 9.4 % (2-11); Neutrophils Absolute Auto 8.1 x10*3/uL (2.0-8.3); Neutrophils Percent Auto 69.5 % (45-73); Platelet Count 231 X10*3/uL (160-400); Red Blood Count 4.75 X10*6/uL (4.60-5.80); Red Cell Distribution Width 13.3 % (11.0-16.0); White Blood Count 11.7 X10*3/uL (4.8-10.8)
--- NOTE | 2021-08-01 10:38 | HO.PSYCHPN ---
Subjective Subjective Date of Service: 08/01/21 Reason For Visit: Suicidal Interim History: pt reports he's fine and says no knew thoughts or feelings about his situation since last sunday. He says he's resigned to keep taking medications like commercial insurance underwriter recommends. Pt denies any side-effects and agrees to titration to 200mg. Caseworker Protective Services discussed what things to look to see if he's doing better which include feeling less stressed about persecution and less contacted by persecutors. Mental Status Exam Mental Status Exam Narrative: Patient Appearance:?unkempt; facial hair; uncombed hair Patient Orientation:?Person, Place and Situation Level of Consciousness:?alert Patient Behavior:?calm but still moderately Guarded Mood Description:? fine Affect Description:?Constricted Patient Cognition Impaired:?No Ability to Follow Directions:?Fair Speech Pattern:?Clear Memory Description:?Intact Hallucinations:?None Delusions:?Paranoid Ideation Thought Process:?Linear Thought Content:?no SI/HI; Abnormal Motor Activity Signs and Symptoms:?none Judgment/insight:?Poor Diagnostics Vital Signs (24Hr): Vital Signs - 24 hr 07/31/21 17:22 08/01/21 06:00 Temperature 97.9 F 97.8 F Pulse Rate 86 88 Respiratory Rate 16 Blood Pressure 110/69 106/75 Pulse Oximetry 97 Labs Results: 08/01/21 07:57 Labs: Laboratory Results - last 48 hr 08/01/21 07:57 WBC 11.7 H RBC 4.75 Hgb 14.4 Hct 42.6 MCV 89.7 MCH 30.3 MCHC 33.8 RDW 13.3 Plt Count 231 MPV 10.0 Immature Gran % (Auto) 0.6 H Neut % (Auto) 69.5 Lymph % (Auto) 17.3 L [place] % (Auto) 9.4 Eos % (Auto) 2.8 Baso % (Auto) 0.4 Lymph # (Auto) 2.0 [place] # (Auto) 1.1 Eos # (Auto) 0.3 Baso # (Auto) 0.1 Abs Immat Gran (auto) 0.07 H Absolute Neuts (auto) 8.1 Absolute Nucleated RBC 0.000 Nucleated RBC % (auto) 0.0 Medications Medications Current Medications Acetaminophen (Acetaminophen 325 Mg Tablet) 650 mg PO Q6H PRN PRN Reason: Pain, Mild (Pain Scale 1-3) Al Hydroxide/Mg Hydroxide (Magnesium Hydrox/Alum Hydrox 30 Ml Oral.Susp) 30 ml PO Q6H PRN PRN Reason: Heartburn/Nausea Clozapine (Clozapine 25 Mg Tablet) 150 mg PO BEDTIME [facility] Last Admin: 07/31/21 19:24 Dose: 150 mg Documented by: Diphenhydramine HCl (Diphenhydramine Hcl 25 Mg Tablet) 50 mg PO Q4H PRN PRN Reason: agitation Last Admin: 07/26/21 09:00 Dose: 50 mg Documented by: Hydroxyzine HCl (Hydroxyzine Hcl 25 Mg Tablet) 25 mg PO BEDTIME PRN PRN Reason: Anxiety Magnesium Hydroxide (Milk Of Magnesia 30 Ml Oral.Susp) 30 ml PO DAILY PRN PRN Reason: Constipation Nicotine Polacrilex (Nicotine Polacrilex 2 Mg Gum) 2 mg BUCCAL Q2H PRN PRN Reason: Nicotine Cravings Trazodone HCl (Trazodone Hcl 50 Mg Tablet) 50 mg PO BEDTIME PRN PRN Reason: Insomnia Ziprasidone (Ziprasidone 20 Mg Capsule) 20 mg PO TID PRN PRN Reason: agitation Allergies Allergies Allergy/AdvReac Type Severity Reaction Status Date / Time olanzapine [OLANZAPINE] Allergy Severe FACIAL Verified 04/06/21 10:20 SWELLING Assessment & Plan Assessment & Plan (1) Schizoaffective disorder: Status: Chronic Code(s): F25.9 - Schizoaffective disorder, unspecified Assessment and Plan: started meds few days ago - tolerating so far- maybe calmer due to it still pretty shut down (2) Starvation ketoacidosis: Status: Resolved Code(s): E87.2 - Acidosis Assessment and Plan: denies current plan for this (3) PTSD (post-traumatic stress disorder): Status: Suspected Code(s): F43.10 - Post-traumatic stress disorder, unspecified Assessment and Plan: Impression: History of paranoid persecutory delusions that command him to engage in dangerous life-threatening activities to which patient has complied (starvation/depravation of all fluids; overdose on Tylenol) HOspital course: 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 Patient has no insight. on 07/29 Patient rescinded his 3 day notice decided he will try and ignore the commands from what he considers communications from his torture (thought implantation) and instead trust that taking medications will help. Patient says this is a big risk and at the stakes are high but he has come to the conclusion that they his persecutor will always lie and tick him and thus he might as well trust treatment. This is welcome news however patient has in the past immediately stop taking medications upon discharge and then quickly become a danger to himself. Will monitor patient's progress; however will continue to consider possible need for Vibra. PLAN: Rescinded 3 day; will hold off going to court (was pending court for sec 7 and 9) Q 15 minutes checks for safety Patient has been taking Clozaril Increase to Clozaril to 175 mg on 08/02; will titrate to 200 mg as tolerated and then reassess -scheduled clonazepam 0.25 mg b.i.d. for anxiety while Clozaril is being titrated -will use Ziprasidone p.r.n. I spent minutes with the patient and/or on the patient floor today, greater than?50% of which was spent counseling/coordinating care. Reason for contiued inpatient stay Substantial Risk for: inability to function
[2021-08-01 17:57] VITALS: BP 123/75; PULSE 90; TEMP 36.8; O2SAT 97
[2021-08-01] MEDS: cloZAPine 25 MG TABLET 150 MG PO (19:49)
[2021-08-02 06:00] VITALS: BP 100/67; PULSE 85; TEMP 36.6
--- NOTE | 2021-08-02 17:04 | HO.PSYCHPN ---
Subjective Subjective Date of Service: 08/02/21 Reason For Visit: Suicidal Interim History: Patient significantly distressed today. Tearful, anxious. He says I have run out of Hope that there is any good outcome possible...I've given up... Patient says they literally beat me for thinking it was possible... I was created, i was designed to fail on purpose. .. there's No way ever to get out of this. . . That said, patient is still worried that it will get worse if [he] does not give them what they want and is worried that his punishment will be solitary confinement for eternity. Tearfully, patient says I'm scared about what is going to happen to my family. Patient is very distraught about what to do regarding medications. He does not know what is the right thing to do, if taking them will upset his persecutory is or not. Patient said he does not know who is lying to him anymore his tormentors or this junior copywriter. Patient talked about a literal problem see of what was going to happen and that it did happen, though patient did not explain. Patient is ambivalent about whether to signed a 3 day notice or not. He says that at this point he will continue taking medications and is okay with titration. Mental Status Exam Mental Status Exam Narrative: ?Pt is alert and oriented to year, place but not situation; behavior is guarded, anxious; unkempt hair and cloths; mood is severely anguished, affect severely anguished; inbetween intense or no eye contact ; Speech is clear, spontaneous; psychomotor agitation present; thought process is perseverative;.?Thought content is overwhelmed with paranoid, persecutory delusions about being tortured; intermittent SI as fulfillment of task assigned to him by persecutors- denies any plan/ intent to hurt himself; no HI.? Patient believes he receives messages through various avenues, or having thoughts planted in his head or through media which he avoids. Denies [facility]. ?Patients insight and judgment are impaired Diagnostics Vital Signs (24Hr): Vital Signs - 24 hr 08/01/21 17:57 08/02/21 06:00 Temperature 98.2 F 98 F Pulse Rate 90 85 Blood Pressure 123/75 100/67 Pulse Oximetry 97 Labs Results: 11/29/21 07:57 Labs: Laboratory Results - last 48 hr 08/01/21 07:57 WBC 11.7 H RBC 4.75 Hgb 14.4 Hct 42.6 MCV 89.7 MCH 30.3 MCHC 33.8 RDW 13.3 Plt Count 231 MPV 10.0 Immature Gran % (Auto) 0.6 H Neut % (Auto) 69.5 Lymph % (Auto) 17.3 L [place] % (Auto) 9.4 Eos % (Auto) 2.8 Baso % (Auto) 0.4 Lymph # (Auto) 2.0 [place] # (Auto) 1.1 Eos # (Auto) 0.3 Baso # (Auto) 0.1 Abs Immat Gran (auto) 0.07 H Absolute Neuts (auto) 8.1 Absolute Nucleated RBC 0.000 Nucleated RBC % (auto) 0.0 Medications Medications Current Medications Acetaminophen (Acetaminophen 325 Mg Tablet) 650 mg PO Q6H PRN PRN Reason: Pain, Mild (Pain Scale 1-3) Al Hydroxide/Mg Hydroxide (Magnesium Hydrox/Alum Hydrox 30 Ml Oral.Susp) 30 ml PO Q6H PRN PRN Reason: Heartburn/Nausea Clozapine (Clozapine 25 Mg Tablet) 175 mg PO BEDTIME [facility] Diphenhydramine HCl (Diphenhydramine Hcl 25 Mg Tablet) 50 mg PO Q4H PRN PRN Reason: agitation Last Admin: 07/26/21 09:00 Dose: 50 mg Documented by: Hydroxyzine HCl (Hydroxyzine Hcl 25 Mg Tablet) 25 mg PO BEDTIME PRN PRN Reason: Anxiety Magnesium Hydroxide (Milk Of Magnesia 30 Ml Oral.Susp) 30 ml PO DAILY PRN PRN Reason: Constipation Nicotine Polacrilex (Nicotine Polacrilex 2 Mg Gum) 2 mg BUCCAL Q2H PRN PRN Reason: Nicotine Cravings Trazodone HCl (Trazodone Hcl 50 Mg Tablet) 50 mg PO BEDTIME PRN PRN Reason: Insomnia Ziprasidone (Ziprasidone 20 Mg Capsule) 20 mg PO TID PRN PRN Reason: agitation Allergies Allergies Allergy/AdvReac Type Severity Reaction Status Date / Time olanzapine [OLANZAPINE] Allergy Severe FACIAL Verified 04/06/21 10:20 SWELLING Assessment & Plan Assessment & Plan (1) Schizoaffective disorder: Status: Chronic Code(s): F25.9 - Schizoaffective disorder, unspecified Assessment and Plan: started meds few days ago - tolerating so far- maybe calmer due to it still pretty shut down (2) Starvation ketoacidosis: Status: Resolved Code(s): E87.2 - Acidosis Assessment and Plan: denies current plan for this (3) PTSD (post-traumatic stress disorder): Status: Suspected Code(s): F43.10 - Post-traumatic stress disorder, unspecified Assessment and Plan: Impression: History of paranoid persecutory delusions that command him to engage in dangerous life-threatening activities to which patient has complied (starvation/depravation of all fluids; overdose on Tylenol) HOspital course: 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 Patient has no insight. on 07/29 Patient rescinded his 3 day notice decided he will try and ignore the commands from what he considers communications from his torture (thought implantation) and instead trust that taking medications will help. Patient says this is a big risk and at the stakes are high but he has come to the conclusion that they his persecutor will always lie and tick him and thus he might as well trust treatment. This is welcome news however patient has in the past immediately stop taking medications upon discharge and then quickly become a danger to himself. Will monitor patient's progress; however will continue to consider possible need for Vibra. -remains with severe prescriber delusions causing patient much anguish; however he agrees to keep taking Clozaril PLAN: Rescinded 3 day; will hold off going to court (was pending court for sec 7 and 9) Q 15 minutes checks for safety Patient has been taking Clozaril Increase to Clozaril to 175 mg on 08/02; will titrate to 200 mg as tolerated and then reassess -scheduled clonazepam 0.25 mg b.i.d. for anxiety while Clozaril is being titrated -will use Ziprasidone p.r.n. I spent minutes with the patient and/or on the patient floor today, greater than?50% of which was spent counseling/coordinating care. Reason for contiued inpatient stay Substantial Risk for: harm to self
[2021-08-02 18:00] VITALS: BP 106/61; PULSE 88; TEMP 36.8
[2021-08-02] MEDS: cloZAPine 25 MG TABLET 175 MG PO (20:21)
[2021-08-03 06:10] VITALS: BP 109/69; PULSE 86; RESP 16; TEMP 36.5; O2SAT 96
--- NOTE | 2021-08-03 13:15 | P.PNPSI_ITS ---
Subjective Subjective Date of Service: 08/03/21 Reason For Visit: Suicidal Interim History: Patient shared that he has been informed by his persecutory is that there are new rules for him to follow and that he is now loud to eat, drink and thus presumes, allowed to urinate. He is not sure what the new rules are regarding medication but he says he will continue taking them. Pt explains there remains some confusion about certain aspects of what they want. He says he has received specific direction how to kill himself post discharge. At first he said he had received instruction on how to kill himself on the unit, but he later clarified that this was past instruction from a while ago and is not a current edict. Pt assures greeting card writer that he is safe on the unit and has no intentions or plans for self-harm. Mental Status Exam Mental Status Exam Narrative: Pt is alert and oriented; behavior is cooperative and calm; patient is not in distress; dressed in casual attire with clean shaven face but unkempt cloths; mood is described as ok and affect congruent, blunted; eye contact ap propriate; Speech is normal rate, volume and prosody and not pressured; no psychomotor agitation/retardation present; thought process is organized and goal directed; Thought content is on understanding new rules of tormentors/They (edicts told to him via thought implantation, media or other modes of communication but no AVH); remains w/out insight; judgment impaired and the fact that pt is taking medications/eating and drinking is only because he feels he's currently allowed to by They ); denies any SI/HI. Diagnostics Vital Signs (24Hr): Vital Signs - 24 hr 08/02/21 18:00 08/03/21 06:10 Temperature 98.3 F 97.7 F Pulse Rate 88 86 Respiratory Rate 16 Blood Pressure 106/61 109/69 Pulse Oximetry 96 Labs Results: 08/01/21 07:57 Medications Medications Current Medications Acetaminophen (Acetaminophen 325 Mg Tablet) 650 mg PO Q6H PRN PRN Reason: Pain, Mild (Pain Scale 1-3) Al Hydroxide/Mg Hydroxide (Magnesium Hydrox/Alum Hydrox 30 Ml Oral.Susp) 30 ml PO Q6H PRN PRN Reason: Heartburn/Nausea Clozapine (Clozapine 100 Mg Tablet) 200 mg PO BEDTIME FIDEL Diphenhydramine HCl (Diphenhydramine Hcl 25 Mg Tablet) 50 mg PO Q4H PRN PRN Reason: agitation Last Admin: 07/26/21 09:00 Dose: 50 mg Documented by: Hydroxyzine HCl (Hydroxyzine Hcl 25 Mg Tablet) 25 mg PO BEDTIME PRN PRN Reason: Anxiety Magnesium Hydroxide (Milk Of Magnesia 30 Ml Oral.Susp) 30 ml PO DAILY PRN PRN Reason: Constipation Nicotine Polacrilex (Nicotine Polacrilex 2 Mg Gum) 2 mg BUCCAL Q2H PRN PRN Reason: Nicotine Cravings Trazodone HCl (Trazodone Hcl 50 Mg Tablet) 50 mg PO BEDTIME PRN PRN Reason: Insomnia Ziprasidone (Ziprasidone 20 Mg Capsule) 20 mg PO TID PRN PRN Reason: agitation Allergies Allergies Allergy/AdvReac Type Severity Reaction Status Date / Time olanzapine [OLANZAPINE] Allergy Severe FACIAL Verified 04/06/21 10:20 SWELLING Assessment & Plan Assessment & Plan (1) Schizoaffective disorder: Status: Chronic Code(s): F25.9 - Schizoaffective disorder, unspecified Assessment and Plan: started meds few days ago - tolerating so far- maybe calmer due to it still pretty shut down (2) Starvation ketoacidosis: Status: Resolved Code(s): E87.2 - Acidosis Assessment and Plan: denies current plan for this (3) PTSD (post-traumatic stress disorder): Status: Suspected Code(s): F43.10 - Post-traumatic stress disorder, unspecified Assessment and Plan: Impression: Patient is a 35-year-old male with history of schizophrenia, paranoid type who presents for paranoid, persecutory delusions, in the face of going off medications, prompting pt to attempt suicide by starvation and water deprivation. While trying to starve himself to , and just days before this admission, patient also attempted to kill himself by overdosing on Tylenol; when this did not work he tried again at a higher dose. Pt now presents to M5 from medical floor where he required fluid resuscitation,?electrolytes replenished and treatment for starvation ketoacidosis, hypernatremia and acute kidney injury.? Pt now medically cleared and transferred to psychiatric unit. ?Patient was recently discharged from the unit around 05/13/2021. HOspital course: Patient currently suffers from severe paranoid persecutory delusions that frequently direct him to harm himself in order to save his family from future torture.? Patient has no insight.? Currently refuses medications and remains on Section 12 B. he says he does not necessarily want to leave the hospital, nor does he want to stay but does not want to sign a CV worried that it will be unacceptable to his persecutors. -patient remains in severe mental anguish over what is the right thing to do, very worried about making the wrong decision which will aggravate his persec utors and therefor put his family in future jeopardy; patient eventually decided to sign a CV but then later signed a 3 day notice.? He agreed to take Clozaril but then was again ambivalent.? Patient remains willing to self-harm to the point of suicide based on paranoid delusions that he must do so in order to save his family from future torment. -over the weekend patient was screaming, out of control and required medication restraint 07/11 patient remains with joel paranoid, persecutory delusions, thoughts to starve himself to based on paranoid delusion, no insight and impaired judgment. -currently he is eating and drinking but only minimally 07/12 pt decided to take Clozaril 07/13:? Patient is tormented seems to have reached a boiling point and he agreed to take Clozaril and sign in 07/15- says he will try a new approach to his decision making; agrees to continue taking Clozaril.? Remains guarded, and with paranoid delusions 07/21 floridly psychotic with intense paranoid, persecutory delusions that are overwhelming patient into repeated unsafe thinking or behavior including kamara icide, and starvation and water deprivation.? Patient has no insight and does not believe that medications help at all; he goes back and forth about whether to take medications as he's very anxious about contradicting his persecutors whom he believes give him messages directing his behavior. 07/23 pt again decided to stop taking medications, a frequent decision emerging every few days as patient again feels that it's safer to listen to his persecutors (paranoid delusions) then it is to go against their edict and take medications. Over the past 2 weeks, only after lengthy discussions, would eyad ma change his mind and go back to taking medications; however this reversion is not due to any moment of insight but rather a combination of emotional exhaustion and him trying to find a loophole in his persecutors edict to not take medications. -patient put in 3 day notice 07/24-07/28: sometimes withdrawn; sometimes agitated, yelling in anguished distress about being threatened by tormentors; intermittently taking medications 07/29 - rescinded 3 day notice -since then, he's agreed to take medications; moments of improved insight, but this was short lived; taking medications however this dose not represent improved insight or judgment, but is only done because he has not concluded that They, his torementors, have specifically barred him from doing so. [facility] considered: Process Automation Engineer reviewed case with Dr. Mcleod and other team members and it was discussed whether or not Dilshad needs a longer term hospitalization such as [facility]. Patient recently revealed that over the days/weeks prior to this admission, in addition to trying to starve/dehydrate himself to , he tried to kill himself 2x by Tylenol overdose, making greeting card writer more aware of the extent of his un safe behavior. Patient remains without any insight at all. He is fully overwhelmed by persecutory delusions. At this point it is becoming increasing difficult for greeting card writer to imagine a scenario where Dilshad is safe outside of a longer term commitment where he is court ordered to take medications. For while he has indeed benefited from Clozapine (improved mood, relief from emotional anguish and reprieve from being contacted by persecutors [delusions]) his illness keeps him from attributing that benefit to medication; rather he maintains that medications are placebos and his relief is due to some other cause; and thus, on his own, patient's illness renders him unable to remain adherent with medications. However, if Dilshad had an extended hospital stay and remained on medications for an extended period of months, he may experience his relief from torture? as a product of medications and thus achieve enough insight to remain on medications as an outpatient. Process Automation Engineer will continue to discuss case with colleagues, but is coming to the conclusion that patient requires [facility] admission for his safety. Barrier to discharge:? Patient is floridly psychotic; he has no insight and currently suffers from paranoid, persecutory delusions, believing he needs to either kill himself or engage in behaviors that will result in , in order to fulfill his persecutors demands; if discharged before stable, patient will quickly decompensate and be at high risk for suicide; he requires locked unit, and likely a exterminator helper admission, to resolve symptoms with medication management. PLAN: Q 15 minutes checks for safety -On CV; he rescinded 3 day at rec from tattoo and body artist (had petitioned court for substituted judgment, involuntary commitment; Signed 3 day notice on 07/23/21- Petition to court filed- on Section 7) -Team discussing possible need to again petition court for involuntary commitment and substituted judgment for application to [facility] -Continue Clozapine 200mg qhs; may need to titrate further; this dose partially effective but pt immediately discontinued med on discharge still responding to paranoid delusion -scheduled clonazepam 0.25 mg b.i.d. for anxiety while Clozaril is being titrated -will use Ziprasidone p.r.n. Micromedex: 1)?Rapid titration in hospitalized patients: Day 1, 50 mg orally followed by 50 to 100 mg as needed every 6 hours (up to an additional 150 mg). Thereafter, may increase daily dosage in increments of 50 to 100 mg. Mean dosage on day 1 was 207 mg/day in patients with prior clozapine exposure and 59.7 mg without prior exposure. Mean titration over 5.44 days to a dosage of 260 mg/day, lead to a mean dosage at discharge of 322 mg/day ?Sarika CA, Peggy? A, Saglam? NG, et al: Rapid clozapine titration in patients with treatment refractory schizophrenia. Psychiatr Q 2016; 87(2):315-322. I spent minutes with the patient and/or on the patient floor today, greater than?50% of which was spent counseling/coordinating care. Reason for contiued inpatient stay Substantial Risk for: harm to self
[2021-08-03 17:15] VITALS: BP 120/74; PULSE 81; TEMP 36.3
[2021-08-03] MEDS: cloZAPine 100 MG TABLET 200 MG PO (20:11)
[2021-08-04 06:00] VITALS: BP 112/59; PULSE 109; TEMP 36.2; O2SAT 97
[2021-08-04 18:00] VITALS: BP 114/77; PULSE 99; RESP 16; TEMP 36.2; O2SAT 97
--- NOTE | 2021-08-04 19:02 | HO.PSYCHPN ---
Subjective Subjective Date of Service: 08/04/21 Reason For Visit: Suicidal Interim History: anguished about persecutors, knows he will never be able to fulfill their demands. Patient reports that he has forced himself to stay up and not sleep the past week at they are command; he also said that he stayed absolutely still and did not move for 11 hours yesterday at they are command; patient breaks down and cries agreeing that this was torturous. Patient remains ambivalent about taking medications not sure with the right thing to do is, meaning how to adhere to his persecutory is demands; however he says he will continue taking it for now. Patient asked typewriter operator automatic how long typewriter operator automatic thinks he will need to remain on the unit to which typewriter operator automatic explains that patient may need an extended inpatient stay in order for treatment to both be and remain effective. Patient said he can understand this. Mental Status Exam Mental Status Exam Narrative: Pt is alert and oriented to year, place but not situation; behavior is guarded, anxious; unkempt hair and cloths; mood is severely anguished,? affect severely anguished; inbetween intense or no eye contact ; Speech is clear, spontaneous; psychomotor agitation present; thought process is perseverative;.?Thought content is overwhelmed with paranoid, persecutory delusions about being tortured; intermittent SI as fulfillment of task assigned to him by persecutors- denies any plan/ intent to hurt himself; no HI.? Patient believes he receives messages through various avenues, or having thoughts planted in his head or through media which he avoids. Denies AvH. ?Patients insight and judgment are impaired Diagnostics Vital Signs (24Hr): Vital Signs - 24 hr 08/04/21 06:00 Temperature 97.2 F Pulse Rate 109 H Blood Pressure 112/59 L Pulse Oximetry 97 Labs Results: 08/01/21 07:57 Medications Medications Current Medications Acetaminophen (Acetaminophen 325 Mg Tablet) 650 mg PO Q6H PRN PRN Reason: Pain, Mild (Pain Scale 1-3) Al Hydroxide/Mg Hydroxide (Magnesium Hydrox/Alum Hydrox 30 Ml Oral.Susp) 30 ml PO Q6H PRN PRN Reason: Heartburn/Nausea Clozapine (Clozapine 100 Mg Tablet) 200 mg PO BEDTIME FIDEL Last Admin: 08/03/21 20:11 Dose: 200 mg Documented by: Diphenhydramine HCl (Diphenhydramine Hcl 25 Mg Tablet) 50 mg PO Q4H PRN PRN Reason: agitation Last Admin: 07/26/21 09:00 Dose: 50 mg Documented by: Hydroxyzine HCl (Hydroxyzine Hcl 25 Mg Tablet) 25 mg PO BEDTIME PRN PRN Reason: Anxiety Magnesium Hydroxide (Milk Of Magnesia 30 Ml Oral.Susp) 30 ml PO DAILY PRN PRN Reason: Constipation Nicotine Polacrilex (Nicotine Polacrilex 2 Mg Gum) 2 mg BUCCAL Q2H PRN PRN Reason: Nicotine Cravings Trazodone HCl (Trazodone Hcl 50 Mg Tablet) 50 mg PO BEDTIME PRN PRN Reason: Insomnia Ziprasidone (Ziprasidone 20 Mg Capsule) 20 mg PO TID PRN PRN Reason: agitation Allergies Allergies Allergy/AdvReac Type Severity Reaction Status Date / Time olanzapine [OLANZAPINE] Allergy Severe FACIAL Verified 04/06/21 10:20 SWELLING Assessment & Plan Assessment & Plan (1) Schizoaffective disorder: Status: Chronic Code(s): F25.9 - Schizoaffective disorder, unspecified Assessment and Plan: started meds few days ago - tolerating so far- maybe calmer due to it still pretty shut down (2) Starvation ketoacidosis: Status: Resolved Code(s): E87.2 - Acidosis Assessment and Plan: denies current plan for this (3) PTSD (post-traumatic stress disorder): Status: Suspected Code(s): F43.10 - Post-traumatic stress disorder, unspecified Assessment and Plan: Impression: Patient is a 35-year-old male with history of schizophrenia, paranoid type who presents for paranoid, persecutory delusions, in the face of going off medications, prompting pt to attempt suicide by starvation and water deprivation. While trying to starve himself to , and just days before this admission, patient also attempted to kill himself by overdosing on Tylenol; when this did not work he tried again at a higher dose. Pt now presents to from medical floor where he required fluid resuscitation,?electrolytes replenished and treatment for starvation ketoacidosis, hypernatremia and acute kidney injury.? Pt now medically cleared and transferred to psychiatric unit. ?Patient was recently discharged from the unit around 05/13/2021. HOspital course: Patient currently suffers from severe paranoid persecutory delusions that frequently direct him to harm himself in order to save his family from future torture.? Patient has no insight.? Currently refuses medications and remains on Section 12 B. he says he does not necessarily want to leave the hospital, nor does he want to stay but does not want to sign a CV worried that it will be unacceptable to his persecutors. -patient remains in severe mental anguish over what is the right thing to do, very worried about making the wrong decision which will aggravate his persecutors and therefor put his family in future jeopardy; patient eventually decided to sign a CV but then later signed a 3 day notice.? He agreed to take Clozaril but then was again ambivalent.? Patient remains willing to self-harm to the point of suicide based on paranoid delusions that he must do so in order to save his family from future torment. -over the weekend patient was screaming, out of control and required medication restraint 07/11 patient remains with joel paranoid, persecutory delusions, thoughts to starve himself to based on paranoid delusion, no insight and impaired judgment. -currently he is eating and drinking but only minimally 07/12 pt decided to take Clozaril 07/13:? Patient is tormented seems to have reached a boiling point and he agreed to take Clozaril and sign in 07/15- says he will try a new approach to his decision making; agrees to continue taking Clozaril.? Remains guarded, and with paranoid delusions 07/21 floridly psychotic with intense paranoid, persecutory delusions that are overwhelming patient into repeated unsafe thinking or behavior including suicide, and starvation and water deprivation.? Patient has no insight and does not believe that medications help at all; he goes back and forth about whether to take medications as he's very anxious about contradicting his persecutors whom he believes give him messages directing his behavior. 07/23 pt again decided to stop taking medications, a frequent decision emerging every few days as patient again feels that it's safer to listen to his persecutors (paranoid delusions) then it is to go against their edict and take medications. Over the past 2 weeks, only after lengthy discussions, would patient change his mind and go back to taking medications; however this reversion is not due to any moment of insight but rather a combination of emotional exhaustion and him trying to find a loophole in his persecutors edict to not take medications. -patient put in 3 day notice 07/24-07/28: sometimes withdrawn; sometimes agitated, yelling in anguished distress about being threatened by tormentors; intermittently taking medications 07/29 - rescinded 3 day notice -since then, he's agreed to take medications; moments of improved insight, but this was short lived; taking medications however this dose not represent improved insight or judgment, but as patient explains, is only done because he has not concluded that They, his torementors, have specifically barred him from doing so VIBRA considered: Kiln Tester reviewed case with Dr. Mcleod and other team members and it was discussed whether or not Dilshad needs a longer term hospitalization such as [facility]. Patient recently revealed that over the days/weeks prior to this admission, in addition to trying to starve/dehydrate himself to , he tried to kill himself 2x by Tylenol overdose, making typewriter operator automatic more aware of the extent of his unsafe behavior. Patient remains without any insight at all. He is fully overwhelmed by persecutory delusions. At this point it is becoming increasing difficult for typewriter operator automatic to imagine a scenario where Dilshad is safe outside of a longer term commitment where he is court ordered to take medications. For while he has indeed benefited from Clozapine (improved mood, relief from emotional anguish and reprieve from being contacted by persecutors [delusions]) his illness keeps him from attributing that benefit to medication; rather he maintains that medications are placebos and his relief is due to some other cause; and thus, on his own, patient's illness renders him unable to remain adherent with medications. However, if Dilshad had an extended hospital stay and remained on medications for an extended period of months, he may experience his relief from torture? as a product of medications and thus achieve enough insight to remain on medications as an outpatient. Kiln Tester will continue to discuss case with colleagues, but is coming to the conclusion that patient requires [facility] admission for his safety. Barrier to discharge:? Patient is floridly psychotic; he has no insight and currently suffers from paranoid, persecutory delusions, believing he needs to either kill himself or engage in behaviors that will result in , in order to fulfill his persecutors demands; if discharged before stable, patient will quickly decompensate and be at high risk for suicide; he requires locked unit, and likely a intermodal owner operator truck driver admission, to resolve symptoms with medication management. PLAN: Q 15 minutes checks for safety -On CV; he rescinded 3 day at rec from managing attorney (had petitioned court for substituted judgment, involuntary commitment; Signed 3 day notice on 07/23/21- Petition to court filed- on Section 7) -Team discussing possible need to again petition court for involuntary commitment and substituted judgment for application to [facility] -Continue Clozapine 200mg qhs; may need to titrate further; this dose partially effective but pt immediately discontinued med on discharge still responding to paranoid delusion -scheduled clonazepam 0.25 mg b.i.d. for anxiety while Clozaril is being titrated -will use Ziprasidone p.r.n. Micromedex: 1)?Rapid titration in hospitalized patients: Day 1, 50 mg orally followed by 50 to 100 mg as needed every 6 hours (up to an additional 150 mg). Thereafter, may increase daily dosage in increments of 50 to 100 mg. Mean dosage on day 1 was 207 mg/day in patients with prior clozapine exposure and 59.7 mg without prior exposure. Mean titration over 5.44 days to a dosage of 260 mg/day, lead to a mean dosage at discharge of 322 mg/day ?Poyrjohn CA, Peggy? A, Saglam? NG, et al: Rapid clozapine titration in patients with treatment refractory schizophrenia. Psychiatr Q 2016; 87(2):315-322. I spent minutes with the patient and/or on the patient floor today, greater than?50% of which was spent counseling/coordinating care. Reason for contiued inpatient stay Substantial Risk for: harm to self
[2021-08-04] MEDS: cloZAPine 100 MG TABLET 200 MG PO (20:01)
[2021-08-04] MEDS: hydrOXYzine HCL 25 MG TABLET PO (21:07)
--- NOTE | 2021-08-04 21:28 | PC.NURSE ---
Pt alert and oriented X4, VSS, RN called after pt was observed banging his head against the wall. Pt reports feeling worthless and feels disappointed that he didn't after fasting for five days. Pt was encouraged to take part in groups and interact more. PRN anxiety medication given with some effectiveness. Provider Char Sosa made aware. Pt placed on 5 mins check. No new orders given.
[2021-08-05 06:40] VITALS: BP 119/76; PULSE 94; RESP 16; TEMP 37.3; O2SAT 95
[2021-08-05 18:00] VITALS: BP 132/91; PULSE 87; TEMP 36.8
--- NOTE | 2021-08-05 18:49 | HO.PSYCHPN ---
Subjective Subjective Date of Service: 08/05/21 Reason For Visit: Suicidal Interim History: Staff reports and patient acknowledges that he started banging his head last night; he said that it was at 1st intended to cause harm but he said he stopped doing so and will remain safe. Patient also said that he started fasting again from both food and water to follow orders given from his tormentor. Patient however said he understands that refusal to eat or drink will eventually pushed the hospital to force feed/hydrate with an IV. Distillery Laborer asked if patient thought this was going to become necessary and if patient needed a one-to-one to keep himself safe. Patient said that no it is not necessary, that he will be safe and that he will resume eating and drinking an adequate amount, though he plans to limit this. Patient discussed staying on the unit for a longer period of time and journalists and other writers shared about the team's discussion and consideration that patient may need admission to [facility]. Mental Status Exam Mental Status Exam Narrative: ?Pt is alert to self, time, place but not situation; behavior is guarded, anxious; unkempt hair and cloths; mood is anxious; affect anxious; inbetween intense or no eye contact ; Speech is clear, spontaneous; psychomotor agitation present; thought process is perseverative;.?Thought content is overwhelmed with paranoid, persecutory delusions about being tortured; intermittent SI as fulfillment of task assigned to him by persecutors- denies any plan/ intent to hurt himself; no HI.? Patient believes he receives messages through various avenues, or having thoughts planted in his head or through media which he avoids. Denies [facility]. ?Patients insight and judgment are impaired Diagnostics Vital Signs (24Hr): Vital Signs - 24 hr 08/05/21 06:40 Temperature 99.1 F Pulse Rate 94 Respiratory Rate 16 Blood Pressure 119/76 Pulse Oximetry 95 Labs Results: 08/01/21 07:57 Medications Medications Current Medications Acetaminophen (Acetaminophen 325 Mg Tablet) 650 mg PO Q6H PRN PRN Reason: Pain, Mild (Pain Scale 1-3) Al Hydroxide/Mg Hydroxide (Magnesium Hydrox/Alum Hydrox 30 Ml Oral.Susp) 30 ml PO Q6H PRN PRN Reason: Heartburn/Nausea Clozapine (Clozapine 100 Mg Tablet) 200 mg PO BEDTIME FIDEL Last Admin: 08/04/21 20:01 Dose: 200 mg Documented by: Diphenhydramine HCl (Diphenhydramine Hcl 25 Mg Tablet) 50 mg PO Q4H PRN PRN Reason: agitation Last Admin: 07/26/21 09:00 Dose: 50 mg Documented by: Hydroxyzine HCl (Hydroxyzine Hcl 25 Mg Tablet) 25 mg PO BEDTIME PRN PRN Reason: Anxiety Last Admin: 08/04/21 21:07 Dose: 25 mg Documented by: Magnesium Hydroxide (Milk Of Magnesia 30 Ml Oral.Susp) 30 ml PO DAILY PRN PRN Reason: Constipation Nicotine Polacrilex (Nicotine Polacrilex 2 Mg Gum) 2 mg BUCCAL Q2H PRN PRN Reason: Nicotine Cravings Trazodone HCl (Trazodone Hcl 50 Mg Tablet) 50 mg PO BEDTIME PRN PRN Reason: Insomnia Ziprasidone (Ziprasidone 20 Mg Capsule) 20 mg PO TID PRN PRN Reason: agitation Allergies Allergies Allergy/AdvReac Type Severity Reaction Status Date / Time olanzapine [OLANZAPINE] Allergy Severe FACIAL Verified 04/06/21 10:20 SWELLING Assessment & Plan Assessment & Plan (1) Schizoaffective disorder: Status: Chronic Code(s): F25.9 - Schizoaffective disorder, unspecified Assessment and Plan: started meds few days ago - tolerating so far- maybe calmer due to it still pretty shut down (2) Starvation ketoacidosis: Status: Resolved Code(s): E87.2 - Acidosis Assessment and Plan: denies current plan for this (3) PTSD (post-traumatic stress disorder): Status: Suspected Code(s): F43.10 - Post-traumatic stress disorder, unspecified Assessment and Plan: Impression: Patient is a 35-year-old male with history of schizophrenia, paranoid type who presents for paranoid, persecutory delusions, in the face of going off medications, prompting pt to attempt suicide by starvation and water deprivation. While trying to starve himself to , and just days before this admission, patient also attempted to kill himself by overdosing on Tylenol; when this did not work he tried again at a higher dose. Pt now presents to [facility] from medical floor where he required fluid resuscitation,?electrolytes replenished and treatment for starvation ketoacidosis, hypernatremia and acute kidney injury.? Pt now medically cleared and transferred to psychiatric unit. ?Patient was recently discharged from the unit around 05/13/2021. HOspital course: Patient currently suffers from severe paranoid persecutory delusions that frequently direct him to harm himself in order to save his family from future torture.? Patient has no insight.? Currently refuses medications and remains on [address] 12 [address]. he says he does not necessarily want to leave the hospital, nor does he want to stay but does not want to sign a CV worried that it will be unacceptable to his persecutors. -patient remains in severe mental anguish over what is the right thing to do, very worried about making the wrong decision which will aggravate his persecutors and therefor put his family in future jeopardy; patient eventually decided to sign a CV but then later signed a 3 day notice.? He agreed to take Clozaril but then was again ambivalent.? Patient remains willing to self-harm to the point of suicide based on paranoid delusions that he must do so in order to save his family from future torment. -over the weekend patient was screaming, out of control and required medication restraint 07/11 patient remains with joel paranoid, persecutory delusions, thoughts to starve himself to based on paranoid delusion, no insight and impaired judgment. -currently he is eating and drinking but only minimally 07/12 pt decided to take Clozaril 07/13:? Patient is tormented seems to have reached a boiling point and he agreed to take Clozaril and sign in 07/15- says he will try a new approach to his decision making; agrees to continue taking Clozaril.? Remains guarded, and with paranoid delusions 07/21 floridly psychotic with intense paranoid, persecutory delusions that are overwhelming patient into repeated unsafe thinking or behavior including suicide, and starvation and water deprivation.? Patient has no insight and does not believe that medications help at all; he goes back and forth about whether to take medications as he's very anxious about contradicting his persecutors whom he believes give him messages directing his behavior. 07/23 pt again decided to stop taking medications, a frequent decision emerging every few days as patient again feels that it's safer to listen to his persecutors (paranoid delusions) then it is to go against their edict and take medications. Over the past 2 weeks, only after lengthy discussions, would patient change his mind and go back to taking medications; however this reversion is not due to any moment of insight but rather a combination of emotional exhaustion and him trying to find a loophole in his persecutors edict to not take medications. -patient put in 3 day notice 07/24-07/28: sometimes withdrawn; sometimes agitated, yelling in anguished distress about being threatened by tormentors; intermittently taking medications 07/29 - rescinded 3 day notice -since then, he's agreed to take medications; moments of improved insight, but this was short lived; taking medications however this dose not represent improved insight or judgment, but as patient explains, is only done because he has not concluded that They, his torementors, have specifically barred him from doing so. -continues to intermittently stop Eating and drinking and obedience to paranoid delusion; remains without insight; remains anguished; intermittently considers how to harm himself on the unit. Volunteers that he has received direction on how to kill himself post discharge. Patient reports he wants to trust this journalists and other writers and staff but is never sure whether or not journalists and other writers/staff as part of a conspiracy to torture him. BRENDA considered: Distillery Laborer reviewed case with Dr. Mcleod and other team members and it was discussed whether or not Dilshad needs a longer term hospitalization such as [facility]. Patient recently revealed that over the days/weeks prior to this admission, in addition to trying to starve/dehydrate himself to , he tried to kill himself 2x by Tylenol overdose, making journalists and other writers more aware of the extent of his unsafe behavior. Patient remains without any insight at all. He is fully overwhelmed by persecutory delusions. At this point it is becoming increasing difficult for journalists and other writers to imagine a scenario where Dilshad is safe outside of a longer term commitment where he is court ordered to take medications. For while he has indeed benefited from Clozapine (improved mood, relief from emotional anguish and reprieve from being contacted by persecutors [delusions]) his illness keeps him from attributing that benefit to medication; rather he maintains that medications are placebos and his relief is due to some other cause; and thus, on his own, patient's illness renders him unable to remain adherent with medications. However, if Dilshad had an extended hospital stay and remained on medications for an extended period of months, he may experience his relief from torture? as a product of medications and thus achieve enough insight to remain on medications as an outpatient. Distillery Laborer will continue to discuss case with colleagues, but is coming to the conclusion that patient requires [facility] admission for his safety. Barrier to discharge:? Patient is floridly psychotic; he has no insight and currently suffers from paranoid, persecutory delusions, believing he needs to either kill himself or engage in behaviors that will result in , in order to fulfill his persecutors demands; if discharged before stable, patient will quickly decompensate and be at high risk for suicide; he requires locked unit, and likely a middle or intermediate school principal admission, to resolve symptoms with medication management. PLAN: Q 15 minutes checks for safety -On CV; he rescinded 3 day at rec from divorce attorney (had petitioned court for substituted judgment, involuntary commitment; Signed 3 day notice on 07/23/21- Petition to court filed- on Section 7) -Team discussing possible need to again petition court for involuntary commitment and substituted judgment for application to [facility] -Continue Clozapine 200mg qhs; may need to titrate further; this dose partially effective but pt immediately discontinued med on discharge still responding to paranoid delusion -scheduled clonazepam 0.25 mg b.i.d. for anxiety while Clozaril is being titrated -will use Ziprasidone p.r.n. Micromedex: 1)?Rapid titration in hospitalized patients: Day 1, 50 mg orally followed by 50 to 100 mg as needed every 6 hours (up to an additional 150 mg). Thereafter, may increase daily dosage in increments of 50 to 100 mg. Mean dosage on day 1 was 207 mg/day in patients with prior clozapine exposure and 59.7 mg without prior exposure. Mean titration over 5.44 days to a dosage of 260 mg/day, lead to a mean dosage at discharge of 322 mg/day ?Sarika HEBERT, Peggy? A, Wagner? NG, et al: Rapid clozapine titration in patients with treatment refractory schizophrenia. Psychiatr Q 2016; 87(2):315-322. I spent minutes with the patient and/or on the patient floor today, greater than?50% of which was spent counseling/coordinating care. Reason for contiued inpatient stay Substantial Risk for: harm to self and inability to function
[2021-08-05] MEDS: cloZAPine 100 MG TABLET 200 MG PO (20:01)
[2021-08-06 06:00] VITALS: BP 110/71; PULSE 100; RESP 18; TEMP 36.8; O2SAT 97
--- NOTE | 2021-08-06 08:29 | P.PNPSI_ITS ---
Subjective Subjective Date of Service: 08/06/21 Reason For Visit: Suicidal Interim History: Patient seen and discussed with team. Patient evaluated this morning and upon interview he states Do i have to have this conversation? Pt reports I havent been eating, says he has not recently been drinking water for almost two days. However, per support staff, pt had a sandwhich last night and although he skips meals, he does ask for snacks. Per pt, he recently went five days of restricting before there was a problem, i dont think there?s a problem yet. Sleep is on and off. Pt denies having questions or concerns. He is minimally engaged in interview. Pt is isolative in the milieu, often in his room sitting on his bed with shirt off. Not attending groups. He did take his clozapine last night. Medication Compliance: Yes Side effects from medications: No Attending Groups: No Review of Systems Acute medical concerns: No Medical Review of Systems: unchanged Mental Status Exam Mental Status Exam Narrative: Pt is alert to self, time, place but not situation; behavior is guarded, anxious; unkempt hair and cloths; mood is anxious;? affect anxious; inbetween intense or no eye contact ; Speech is clear, spontaneous; psychomotor agitation present; thought process is perseverative;.?Thought content is overwhelmed with paranoid, persecutory delusions about being tortured; intermittent SI as fulfillment of task assigned to him by persecutors- denies any plan/ intent to hurt himself; no HI.? Patient believes he receives messages through various avenues, or having thoughts planted in his head or through media which he avoids. Denies AvH. ?Patients insight and judgment are impaired Diagnostics Vital Signs (24Hr): Vital Signs - 24 hr 08/06/21 18:00 08/07/21 06:00 Temperature 98.1 F 97.6 F Pulse Rate 94 89 Respiratory Rate 16 18 Blood Pressure 128/74 136/82 Pulse Oximetry 98 Labs Results: 08/08/21 08:08 08/06/21 15:55 Labs: Laboratory Results - last 48 hr 08/06/21 15:55 Sodium 142 Potassium 3.7 Chloride 101 Carbon Dioxide 27 Anion Gap 18 BUN 16 Creatinine 0.76 Estim Creat Clear Calc TNP Estimated GFR > 60 Random Glucose 89 Calcium 10.0 D Total Bilirubin 1.2 H AST 22 ALT 79 H Alkaline Phosphatase 100 D Total Protein 8.2 H D Albumin 4.8 D Medications Medications Current Medications Acetaminophen (Acetaminophen 325 Mg Tablet) 650 mg PO Q6H PRN PRN Reason: Pain, Mild (Pain Scale 1-3) Al Hydroxide/Mg Hydroxide (Magnesium Hydrox/Alum Hydrox 30 Ml Oral.Susp) 30 ml PO Q6H PRN PRN Reason: Heartburn/Nausea Calcium Carbonate (Calcium Carbonate 750 Mg Tab.Chew) 750 mg PO Q4H PRN PRN Reason: Indigestion Last Admin: 08/06/21 19:35 Dose: 750 mg Documented by: Clozapine (Clozapine 100 Mg Tablet) 200 mg PO BEDTIME FIDEL Last Admin: 08/06/21 21:07 Dose: Not Given Documented by: Diphenhydramine HCl (Diphenhydramine Hcl 25 Mg Tablet) 50 mg PO Q4H PRN PRN Reason: agitation Last Admin: 07/26/21 09:00 Dose: 50 mg Documented by: Hydroxyzine HCl (Hydroxyzine Hcl 25 Mg Tablet) 25 mg PO BEDTIME PRN PRN Reason: Anxiety Last Admin: 08/04/21 21:07 Dose: 25 mg Documented by: Magnesium Hydroxide (Milk Of Magnesia 30 Ml Oral.Susp) 30 ml PO DAILY PRN PRN Reason: Constipation Nicotine Polacrilex (Nicotine Polacrilex 2 Mg Gum) 2 mg BUCCAL Q2H PRN PRN Reason: Nicotine Cravings Trazodone HCl (Trazodone Hcl 50 Mg Tablet) 50 mg PO BEDTIME PRN PRN Reason: Insomnia Ziprasidone (Ziprasidone 20 Mg Capsule) 20 mg PO TID PRN PRN Reason: agitation Allergies Allergies Allergy/AdvReac Type Severity Reaction Status Date / Time olanzapine [OLANZAPINE] Allergy Severe FACIAL Verified 04/06/21 10:20 SWELLING Assessment & Plan Assessment & Plan (1) Schizoaffective disorder: Status: Chronic Code(s): F25.9 - Schizoaffective disorder, unspecified Assessment and Plan: started meds few days ago - tolerating so far- maybe calmer due to it still pretty shut down (2) Starvation ketoacidosis: Status: Resolved Code(s): E87.2 - Acidosis Assessment and Plan: denies current plan for this (3) PTSD (post-traumatic stress disorder): Status: Suspected Code(s): F43.10 - Post-traumatic stress disorder, unspecified Assessment and Plan: Impression: Patient is a 35-year-old male with history of schizophrenia, paranoid type who presents for paranoid, persecutory delusions, in the face of going off me dications, prompting pt to attempt suicide by starvation and water deprivation. While trying to starve himself to , and just days before this admission, patient also attempted to kill himself by overdosing on Tylenol; when this did not work he tried again at a higher dose. Pt now presents to [facility] from medical floor where he required fluid resuscitation,?electrolytes replenished and treatment for starvation ketoacidosis, hypernatremia and acute kidney injury.? Pt now medically cleared and transferred to psychiatric unit. ?Patient was recently discharged from the unit around 05/13/2021. HOspital course: Patient currently suffers from severe paranoid persecutory delusions that frequently direct him to harm himself in order to save his family from future torture.? Patient has no insight.? Currently refuses medications and remains on Section 12 B. he says he does not necessarily want to leave the hospital, nor does he want to stay but does not want to sign a CV worried that it will be unacceptable to his persecutors. -patient remains in severe mental anguish over what is the right thing to do, very worried about making the wrong decision which will aggravate his persecutors and therefor put his family in future jeopardy; patient eventually decided to sign a CV but then later signed a 3 day notice.? He agreed to take Clozaril but then was again ambivalent.? Patient remains willing to self-harm to the point of suicide based on paranoid delusions that he must do so in order to save his family from future torment. -over the weekend patient was screaming, out of control and required medication restraint 07/11 patient remains with joel paranoid, persecutory delusions, thoughts to starve himself to based on paranoid delusion, no insight and impaired judgment. -currently he is eating and drinking but only minimally 07/12 pt decided to take Clozaril 07/13:? Patient is tormented seems to have reached a boiling point and he agreed to take Clozaril and sign in 07/15- says he will try a new approach to his decision making; agrees to continue taking Clozaril.? Remains guarded, and with paranoid delusions 07/21 floridly psychotic with intense paranoid, persecutory delusions that are overwhelming patient into repeated unsafe thinking or behavior including suicide, and starvation and water deprivation.? Patient has no insight and does not believe that medications help at all; he goes back and forth about whether to take medications as he's very anxious about contradicting his persecutors whom he believes give him messages directing his behavior. 07/23 pt again decided to stop taking medications, a frequent decision emerging every few days as patient again feels that it's safer to listen to his persecutors (paranoid delusions) then it is to go against their edict and take medications. Over the past 2 weeks, only after lengthy discussions, would patient change his mind and go back to taking medications; however this reversion is not due to any moment of insight but rather a combination of emotional exhaustion and him trying to find a loophole in his persecutors edict to not take medications. -patient put in 3 day notice 07/24-07/28: sometimes withdrawn; sometimes agitated, yelling in anguished distress about being threatened by tormentors; intermittently taking medications 07/29 - rescinded 3 day notice -since then, he's agreed to take medications; moments of improved insight, but this was short lived; taking medications however this dose not represent improved insight or judgment, but as patient explains, is only done because he has not concluded that They, his torementors, have specifically barred him from doing so. -continues to intermittently stop Eating and drinking and obedience to paranoid delusion; remains without insight; remains anguished; intermittently considers how to harm himself on the unit. Volunteers that he has received direction on how to kill himself post discharge. Patient reports he wants to trust this health technical writer and staff but is never sure whether or not health technical writer/staff as part of a conspiracy to torture him. weekend coverage: 08/06- Pt was adherent with clozapine last night but continues to present as guarded, withdrawn, and internally preoccupied. He denies agit ation. Endorses intention to restrict PO intake today but did not want to discuss this further. Per support staff, he did have a sandwhich last night and fluids with his medication. Will order [facility] to re-assess electrolytes. Vitals wnl. [facility] considered: Rn Radiation reviewed case with Dr. Mcleod and other team members and it was discussed whether or not Dilshad needs a longer term hospitalization such as [facility]. Patient recently revealed that over the days/weeks prior to this admission, in addition to trying to starve/dehydrate himself to , he tried to kill himself 2x by Tylenol overdose, making health technical writer more aware of the extent of his unsafe behavior. Patient remains without any insight at all. He is fully overwhelmed by persecutory delusions. At this point it is becoming increasing difficult for health technical writer to imagine a scenario where Dilshad is safe outside of a longer term commitment where he is court ordered to take medications. For while he has indeed benefited from Clozapine (improved mood, relief from emotional anguish and reprieve from being contacted by persecutors [delusions]) his illness keeps him from attributing that benefit to medication; rather he maintai ns that medications are placebos and his relief is due to some other cause; and thus, on his own, patient's illness renders him unable to remain adherent with medications. However, if Dilshad had an extended hospital stay and remained on medications for an extended period of months, he may experience his relief from torture? as a product of medications and thus achieve enough insight to remain on medications as an outpatient. Rn Radiation will continue to discuss case with colleagues, but is coming to the conclusion that patient requires [facility] admission for his safety. Barrier to discharge:? Patient is floridly psychotic; he has no insight and currently suffers from paranoid, persecutory delusions, believing he needs to either kill himself or engage in behaviors that will result in , in order to fulfill his persecutors demands; if discharged before stable, patient will quickly decompensate and be at high risk for suicide; he requires locked unit, and likely a shelter admission, to resolve symptoms with medication management. PLAN: Q 15 minutes checks for safety -On CV; he rescinded 3 day at rec from employment law attorney (had petitioned court for substituted judgment, involuntary commitment; Signed 3 day notice on 07/23/21- Petition to court filed- on Section 7) -Team discussing possible need to again petition court for involuntary commitmen t and substituted judgment for application to [facility] -Continue Clozapine 200mg qhs; may need to titrate further; this dose partially effective but pt immediately discontinued med on discharge still responding to paranoid delusion -scheduled clonazepam 0.25 mg b.i.d. for anxiety while Clozaril is being titrated -will use Ziprasidone p.r.n. Micromedex: 1)?Rapid titration in hospitalized patients: Day 1, 50 mg orally followed by 50 to 100 mg as needed every 6 hours (up to an additional 150 mg). Thereafter, may increase daily dosage in increments of 50 to 100 mg. Mean dosage on day 1 was 207 mg/day in patients with prior clozapine exposure and 59.7 mg without prior exposure. Mean titration over 5.44 days to a dosage of 260 mg/day, lead to a mean dosage at discharge of 322 mg/day ?Sarika HEBERT, Peggy? A, Wagner? NG, et al: Rapid clozapine titration in patients with treatment refractory schizophrenia. Psychiatr Q 2016; 87(2):315-322. I spent minutes with the patient and/or on the patient floor today, greater than?50% of which was spent counseling/coordinating care. Reason for contiued inpatient stay Substantial Risk for: harm to self, inability to function, rapid decompensation and med/psych decompensation
[2021-08-06 16:26] LABS: Alanine Aminotransferase 79 U/L (0-40); Albumin Level 4.8 g/dL (3.5-5.0); Alkaline Phosphatase 100 U/L (39-117); Anion Gap 18 (12-20); Aspartate Amino Transferase 22 U/L (5-37); Bilirubin Total 1.2 mg/dL (0.0-1.0); Blood Urea Nitrogen 16 mg/dL (9-16); Carbon Dioxide 27 mmol/L (22-29); Chloride 101 mmol/L (96-108); Estimated Glomerular Filt Rate > 60; Glucose Random 89 mg/dL (60-115); Potassium 3.7 mmol/L (3.3-5.1); Sodium 142 mmol/L (135-145); Total Protein 8.2 g/dL (6.5-8.0)
[2021-08-06 18:00] VITALS: BP 128/74; PULSE 94; RESP 16; TEMP 36.7
[2021-08-06] MEDS: Calcium Carbonate 750 MG TAB.CHEW PO (19:35)
--- NOTE | 2021-08-06 19:51 | PC.NURSE ---
PT complaining of indigestion. PT requesting chewable TUMS and states he can not take Maalox as the internal voices are telling him not to take food or liquid by mouth. TUMS ordered by Dr Pan.
[2021-08-07 06:00] VITALS: BP 136/82; PULSE 89; RESP 18; TEMP 36.4; O2SAT 98
--- NOTE | 2021-08-07 07:06 | PC.NURSE ---
This morning while assessing vitals, Dilshad reports to this assembly instructions writer They're controlling my body... I tried to stay up all night, but they made me go to sleep. In looking at his vitals, Dilshad states, Those numbers aren't real. Patient discusses his dreams last night with this assembly instructions writer, reporting theme of feeling like he was going to be framed for others wrong doing, specifically sneaking in large quantities of alcohol to a libertarian. Dilshad reports voices and intrusive thoughts telling him to Kill myself, because I will be better off and they will help my parents cope. Dilshad reports feeling like this is true, stating he feels tired. He states, They lace every thought I have with doubt. Dilshad is encouraged to continue communicating with staff, spend time out of his room, and attend to his personal hygiene.
[2021-08-07] MEDS: cloZAPine 100 MG TABLET 200 MG PO (12:43)
--- NOTE | 2021-08-07 12:44 | PC.NURSE ---
Note to pharmacy: medical instructor undo used to accommodate MD order change, to ensure one time dose given would not affect bedtime scheduled dose which needs to be given this evening in addition.
--- NOTE | 2021-08-07 14:31 | HO.PSYCHPN ---
Subjective Subjective Date of Service: 08/07/21 Reason For Visit: Suicidal Interim History: Patient seen and discussed with team. Patient evaluated this morning and upon interview he is found in his room sitting in bed with shirt off, however he is redirectable and put shirt on to meet in group room. Pt refused clozapine last night, still says he is not eating and he hasnt asked for water today but that I did last night, had just a little water. Says he is restricting because I believe im being told to by an entity. Says he did not take clozapine because I believe I was being tricked. Endorses sx of thought insertion. Per pt, his intentional restriction is Part of it was i have not eaten and drank in a suicidal manner and robbi also done it because the entity has told me to. Pt states today has been weird, its been behaving differently referring to the entity, I dont fully understand why, i dont wanna get into the specifics. Pt demonstrates some insight into risks of restricting, stating I know im eventually gonna end up on an iv, its not my plan or intent but says this morning it was attractive to me as he says I find the nighttime to be extremely difficult when its dark out. Says he thinks if he was on a medical floor, the nighttime would be easier because he imagines he would not have a window and wouldn't be able to tell when it turns dark, also sayd everything would be making noise. Pt is rubbing his face, appears distressed and internally preoccupied. Denies that his restricting is suicidal in nature today and says he feels safe. Later in the day, pt approach T/W and said the entity is allowing me to take his PO medication and drink water. RN administered clozapine. Medication Compliance: Yes Side effects from medications: No Attending Groups: No Review of Systems Acute medical concerns: No Medical Review of Systems: unchanged Mental Status Exam Mental Status Exam Narrative: Pt is alert to self, time, place but not situation; behavior is guarded, anxious; unkempt hair and cloths; mood is anxious;? affect anxious; inbetween intense or no eye contact ; Speech is clear, spontaneous; psychomotor agitation present; thought process is perseverative;.?Thought content is overwhelmed with paranoid, persecutory delusions about being tortured; intermittent SI as fulfillment of task assigned to him by persecutors- denies any plan/ intent to hurt himself; no HI.? Patient believes he receives messages through various avenues, or having thoughts planted in his head or through media which he avoids. Denies [facility]. ?Patients insight and judgment are impaired Diagnostics Vital Signs (24Hr): Vital Signs - 24 hr 08/06/21 18:00 08/07/21 06:00 Temperature 98.1 F 97.6 F Pulse Rate 94 89 Respiratory Rate 16 18 Blood Pressure 128/74 136/82 Pulse Oximetry 98 Labs Results: 08/08/21 08:08 08/06/21 15:55 Labs: Laboratory Results - last 48 hr 08/06/21 15:55 Sodium 142 Potassium 3.7 Chloride 101 Carbon Dioxide 27 Anion Gap 18 BUN 16 Creatinine 0.76 Estim Creat Clear Calc TNP Estimated GFR > 60 Random Glucose 89 Calcium 10.0 D Total Bilirubin 1.2 H AST 22 ALT 79 H Alkaline Phosphatase 100 D Total Protein 8.2 H D Albumin 4.8 D Medications Medications Current Medications Acetaminophen (Acetaminophen 325 Mg Tablet) 650 mg PO Q6H PRN PRN Reason: Pain, Mild (Pain Scale 1-3) Al Hydroxide/Mg Hydroxide (Magnesium Hydrox/Alum Hydrox 30 Ml Oral.Susp) 30 ml PO Q6H PRN PRN Reason: Heartburn/Nausea Calcium Carbonate (Calcium Carbonate 750 Mg Tab.Chew) 750 mg PO Q4H PRN PRN Reason: Indigestion Last Admin: 08/06/21 19:35 Dose: 750 mg Documented by: Clozapine (Clozapine 100 Mg Tablet) 200 mg PO BEDTIME FIDEL Last Admin: 08/06/21 21:07 Dose: Not Given Documented by: Diphenhydramine HCl (Diphenhydramine Hcl 25 Mg Tablet) 50 mg PO Q4H PRN PRN Reason: agitation Last Admin: 07/26/21 09:00 Dose: 50 mg Documented by: Hydroxyzine HCl (Hydroxyzine Hcl 25 Mg Tablet) 25 mg PO BEDTIME PRN PRN Reason: Anxiety Last Admin: 08/04/21 21:07 Dose: 25 mg Documented by: Magnesium Hydroxide (Milk Of Magnesia 30 Ml Oral.Susp) 30 ml PO DAILY PRN PRN Reason: Constipation Nicotine Polacrilex (Nicotine Polacrilex 2 Mg Gum) 2 mg BUCCAL Q2H PRN PRN Reason: Nicotine Cravings Trazodone HCl (Trazodone Hcl 50 Mg Tablet) 50 mg PO BEDTIME PRN PRN Reason: Insomnia Ziprasidone (Ziprasidone 20 Mg Capsule) 20 mg PO TID PRN PRN Reason: agitation Allergies Allergies Allergy/AdvReac Type Severity Reaction Status Date / Time olanzapine [OLANZAPINE] Allergy Severe FACIAL Verified 04/06/21 10:20 SWELLING Assessment & Plan Assessment & Plan (1) Schizoaffective disorder: Status: Chronic Code(s): F25.9 - Schizoaffective disorder, unspecified Assessment and Plan: started meds few days ago - tolerating so far- maybe calmer due to it still pretty shut down (2) Starvation ketoacidosis: Status: Resolved Code(s): E87.2 - Acidosis Assessment and Plan: denies current plan for this (3) PTSD (post-traumatic stress disorder): Status: Suspected Code(s): F43.10 - Post-traumatic stress disorder, unspecified Assessment and Plan: Impression: Patient is a 35-year-old male with history of schizophrenia, paranoid type who presents for paranoid, persecutory delusions, in the face of going off medications, prompting pt to attempt suicide by starvation and water deprivation. While trying to starve himself to , and just days before this admission, patient also attempted to kill himself by overdosing on Tylenol; when this did not work he tried again at a higher dose. Pt now presents to from medical floor where he required fluid resuscitation,?electrolytes replenished and treatment for starvation ketoacidosis, hypernatremia and acute kidney injury.? Pt now medically cleared and transferred to psychiatric unit. ?Patient was recently discharged from the unit around 05/13/2021. HOspital course: Patient currently suffers from severe paranoid persecutory delusions that frequently direct him to harm himself in order to save his family from future torture.? Patient has no insight.? Currently refuses medications and remains on Section 12 B. he says he does not necessarily want to leave the hospital, nor does he want to stay but does not want to sign a CV worried that it will be unacceptable to his persecutors. -patient remains in severe mental anguish over what is the right thing to do, very worried about making the wrong decision which will aggravate his persecutors and therefor put his family in future jeopardy; patient eventually decided to sign a CV but then later signed a 3 day notice.? He agreed to take Clozaril but then was again ambivalent.? Patient remains willing to self-harm to the point of suicide based on paranoid delusions that he must do so in order to save his family from future torment. -over the weekend patient was screaming, out of control and required medication restraint 07/11 patient remains with joel paranoid, persecutory delusions, thoughts to starve himself to based on paranoid delusion, no insight and impaired judgment. -currently he is eating and drinking but only minimally 07/12 pt decided to take Clozaril 07/13:? Patient is tormented seems to have reached a boiling point and he agreed to take Clozaril and sign in 07/15- says he will try a new approach to his decision making; agrees to continue taking Clozaril.? Remains guarded, and with paranoid delusions 07/21 floridly psychotic with intense paranoid, persecutory delusions that are overwhelming patient into repeated unsafe thinking or behavior including suicide, and starvation and water deprivation.? Patient has no insight and does not believe that medications help at all; he goes back and forth about whether to take medications as he's very anxious about contradicting his persecutors whom he believes give him messages directing his behavior. 07/23 pt again decided to stop taking medications, a frequent decision emerging every few days as patient again feels that it's safer to listen to his persecutors (paranoid delusions) then it is to go against their edict and take medications. Over the past 2 weeks, only after lengthy discussions, would patient change his mind and go back to taking medications; however this reversion is not due to any moment of insight but rather a combination of emotional exhaustion and him trying to find a loophole in his persecutors edict to not take medications. -patient put in 3 day notice 07/24-07/28: sometimes withdrawn; sometimes agitated, yelling in anguished distress about being threatened by tormentors; intermittently taking medications 07/29 - rescinded 3 day notice -since then, he's agreed to take medications; moments of improved insight, but this was short lived; taking medications however this dose not represent improved insight or judgment, but as patient explains, is only done because he has not concluded that They, his torementors, have specifically barred him from doing so. -continues to intermittently stop Eating and drinking and obedience to paranoid delusion; remains without insight; remains anguished; intermittently considers how to harm himself on the unit. Volunteers that he has received direction on how to kill himself post discharge. Patient reports he wants to trust this typewriter assembler and staff but is never sure whether or not typewriter assembler/staff as part of a conspiracy to torture him. weekend coverage: 08/06- Pt was adherent with clozapine last night but continues to present as guarded, withdrawn, and internally preoccupied. He denies agitation. Endorses intention to restrict PO intake today but did not want to discuss this further. Per production staff worker, he did have a sandwhich last night and fluids with his medication. Will order CMP to re-assess electrolytes. Vitals wnl. 08/07- Pt continued to report intentional restricting and thought disorder. Pt is internally preoccupied, distressed, and endorses delusion of thought insertion. He refused clozapine last night but was adherent today and accepted fluids. Put in label that pt may take up to 24 hours after refusal of dose. Reviewed CMP, vitals wnl. BRENDA considered: Saloonkeeper reviewed case with Dr. Mcleod and other team members and it was discussed whether or not Dilshad needs a longer term hospitalization such as [facility]. Patient recently revealed that over the days/weeks prior to this admission, in addition to trying to starve/dehydrate himself to , he tried to kill himself 2x by Tylenol overdose, making typewriter assembler more aware of the extent of his unsafe behavior. Patient remains without any insight at all. He is fully overwhelmed by persecutory delusions. At this point it is becoming increasing difficult for typewriter assembler to imagine a scenario where Dilshad is safe outside of a longer term commitment where he is court ordered to take medications. For while he has indeed benefited from Clozapine (improved mood, relief from emotional anguish and reprieve from being contacted by persecutors [delusions]) his illness keeps him from attributing that benefit to medication; rather he maintains that medications are placebos and his relief is due to some other cause; and thus, on his own, patient's illness renders him unable to remain adherent with medications. However, if Dilshad had an extended hospital stay and remained on medications for an extended period of months, he may experience his relief from torture? as a product of medications and thus achieve enough insight to remain on medications as an outpatient. Saloonkeeper will continue to discuss case with colleagues, but is coming to the conclusion that patient requires [facility] admission for his safety. Barrier to discharge:? Patient is floridly psychotic; he has no insight and currently suffers from paranoid, persecutory delusions, believing he needs to either kill himself or engage in behaviors that will result in , in order to fulfill his persecutors demands; if discharged before stable, patient will quickly decompensate and be at high risk for suicide; he requires locked unit, and likely a intermediate card tender admission, to resolve symptoms with medication management. PLAN: Q 15 minutes checks for safety -On CV; he rescinded 3 day at rec from patent prosecution attorney (had petitioned court for substituted judgment, involuntary commitment; Signed 3 day notice on 07/23/21- Petition to court filed- on Section 7) -Team discussing possible need to again petition court for involuntary commitment and substituted judgment for application to [facility] -Continue Clozapine 200mg qhs; may need to titrate further; this dose partially effective but pt immediately discontinued med on discharge still responding to paranoid delusion -scheduled clonazepam 0.25 mg b.i.d. for anxiety while Clozaril is being titrated -will use Ziprasidone p.r.n. Micromedex: 1)?Rapid titration in hospitalized patients: Day 1, 50 mg orally followed by 50 to 100 mg as needed every 6 hours (up to an additional 150 mg). Thereafter, may increase daily dosage in increments of 50 to 100 mg. Mean dosage on day 1 was 207 mg/day in patients with prior clozapine exposure and 59.7 mg without prior exposure. Mean titration over 5.44 days to a dosage of 260 mg/day, lead to a mean dosage at discharge of 322 mg/day ?Poyraz CA, Peggy? A, Saglam? NG, et al: Rapid clozapine titration in patients with treatment refractory schizophrenia. Psychiatr Q 2016; 87(2):315-322. I spent minutes with the patient and/or on the patient floor today, greater than?50% of which was spent counseling/coordinating care. Reason for contiued inpatient stay Substantial Risk for: harm to self, inability to function, rapid decompensation and med/psych decompensation
[2021-08-07 18:00] VITALS: BP 98/62; PULSE 123; RESP 18; TEMP 36.2; O2SAT 93
[2021-08-08 06:00] VITALS: BP 128/87; PULSE 67; TEMP 36.1; O2SAT 99
[2021-08-08 08:29] LABS: MANUAL DIFF FLAG NO
[2021-08-08 08:32] LABS: Basophils Percent Auto 0.3 % (0-2); Eosinophils Absolute Auto 0.3 X10*3/uL (0.0-0.4); Hematocrit 52.4 % (42.0-52.0); Hemoglobin 17.6 g/dl (14.0-18.0); Imm Gran Abs Auto 0.03 X10*3/uL (0.00-0.03); Imm Gran Pct Auto 0.2 % (0.0-0.4); Lymphocytes Absolute Auto 1.9 X10*3/uL (1.2-4.9); Lymphocytes Percent Auto 15.3 % (20-40); Mean Corpuscular HGB Conc 33.6 g/dl (31.0-36.0); Mean Corpuscular Volume 89.4 fL (80.0-98.0); Mean Platelet Volume 10.1 fL (9.4-12.4); Monocytes Percent Auto 7.9 % (2-11); Neut%MD 75.8 %; Neutrophils Absolute Auto 9.3 x10*3/uL (2.0-8.3); Neutrophils Absolute Auto 9.4 x10*3/uL (2.0-8.3); Neutrophils Percent Auto 74.3 % (45-73); Platelet Count 295 X10*3/uL (160-400); Red Blood Count 5.86 X10*6/uL (4.60-5.80); Red Cell Distribution Width 13.5 % (11.0-16.0); WBCANC 12.3 X10*3/uL; White Blood Count 12.6 X10*3/uL (4.8-10.8)
--- NOTE | 2021-08-08 10:37 | HO.PSYCHPN ---
Subjective Subjective Date of Service: 08/08/21 Reason For Visit: Suicidal Interim History: Patient very odd behavior today. Patient was sitting on his bed cross legged. His legs were calmly in place however he was intermittently gyrating flexing, contorting his upper torso, arms and face. Patient would move one part of his body/face in a certain way, stop, sit normally and then move another part of his body, stop, sit for a moment and then move another part... Patient was able to nod yes and no to questions and his eyes were open and able to look around the room, at staff, or at item handed to him. He was also willing to hold staff's hand for comfort which he did with both hands, during which times his hands were stable and only his torso, neck and head were gyrating. He was able to use his hands to hold onto an ice bag. Patient was given IM of ativan 2mg and benadryl 50mg and after about 10 minutes he started to move less, and say yes or no. Review Scheduling Coordinator asked patient to lie down so he would be more comfortable, which he did. Once lying down, patient than for the 1st time, started to move his legs intermittently into various positions. Weighted blanket was given to patient which he found calming. Review Scheduling Coordinator came back to see patient a little while later and he was talking saying he was feeling better. Review Scheduling Coordinator asked if he had a sense of what was going on and patient said I really rather not explain it. He did say that it had nothing to do with medication side effect and that he was feeling safe. Patient said he would discuss it more tomorrow. This is not dystonia, akathisia and is not seizure activity, but rather patient's own voluntary behavior done in obedience to direction from his imagined persecutor -Patient said he stopped taking medications last night because he thought that was but he was supposed to do via is tormentors; he said he was willing to take it again today because he thinks he is allowed to now. -Staff reports that over the weekend patient was refusing medications, was not eating food and had refused fluids although he restarted eating and drinking today. Mental Status Exam Mental Status Exam Narrative: ?Pt is alert to self, time, place but not situation; behavior is bizarre, with bizarre flexing movements of his body, limited to no eye contact, not talking, sitting on the bed without a shirt on. thought process is goal oriented; thought content is overwhelmed with paranoid, persecutory delusions about being tortured; intermittent SI as fulfillment of task assigned to him by persecutors; patient has plans on how to kill himself post discharge; patient has intermittent plans and intent to self-harm on the unit though he has been able to articulate them and make and limit his actions towards this end; Patient believes he receives messages through various avenues, having thoughts implanted in his head or communications given through media which he avoids. Denies [facility]. ?Patients insight and judgment are impaired Diagnostics Vital Signs (24Hr): Vital Signs - 24 hr 08/07/21 18:00 Temperature 97.2 F Pulse Rate 123 H Respiratory Rate 18 Blood Pressure 98/62 Pulse Oximetry 93 Labs Results: 08/08/21 08:08 08/06/21 15:55 Labs: Laboratory Results - last 48 hr 08/06/21 08/08/21 08/08/21 15:55 08:08 08:08 WBC 12.6 H RBC 5.86 H D Hgb 17.6 D Hct 52.4 H D MCV 89.4 MCH 30.0 MCHC 33.6 RDW 13.5 Plt Count 295 D MPV 10.1 Immature Gran % (Auto) 0.2 Neut % (Auto) 74.3 H Lymph % (Auto) 15.3 L Floyd % (Auto) 7.9 Eos % (Auto) 2.0 Baso % (Auto) 0.3 Lymph # (Auto) 1.9 Floyd # (Auto) 1.0 Eos # (Auto) 0.3 Baso # (Auto) 0.0 Abs Immat Gran (auto) 0.03 Absolute Neuts (auto) 9.4 H 9.3 H Absolute Nucleated RBC 0.000 Nucleated RBC % (auto) 0.0 Sodium 142 Potassium 3.7 Chloride 101 Carbon Dioxide 27 Anion Gap 18 BUN 16 Creatinine 0.76 Estim Creat Clear Calc TNP Estimated GFR > 60 Random Glucose 89 Calcium 10.0 D Total Bilirubin 1.2 H AST 22 ALT 79 H Alkaline Phosphatase 100 D Total Protein 8.2 H D Albumin 4.8 D Medications Medications Current Medications Acetaminophen (Acetaminophen 325 Mg Tablet) 650 mg PO Q6H PRN PRN Reason: Pain, Mild (Pain Scale 1-3) Al Hydroxide/Mg Hydroxide (Magnesium Hydrox/Alum Hydrox 30 Ml Oral.Susp) 30 ml PO Q6H PRN PRN Reason: Heartburn/Nausea Calcium Carbonate (Calcium Carbonate 750 Mg Tab.Chew) 750 mg PO Q4H PRN PRN Reason: Indigestion Last Admin: 08/06/21 19:35 Dose: 750 mg Documented by: Clozapine (Clozapine 100 Mg Tablet) 200 mg PO BEDTIME FIDEL Last Admin: 08/06/21 21:07 Dose: Not Given Documented by: Diphenhydramine HCl (Diphenhydramine Hcl 25 Mg Tablet) 50 mg PO Q4H PRN PRN Reason: agitation Last Admin: 07/26/21 09:00 Dose: 50 mg Documented by: Hydroxyzine HCl (Hydroxyzine Hcl 25 Mg Tablet) 25 mg PO BEDTIME PRN PRN Reason: Anxiety Last Admin: 08/04/21 21:07 Dose: 25 mg Documented by: Magnesium Hydroxide (Milk Of Magnesia 30 Ml Oral.Susp) 30 ml PO DAILY PRN PRN Reason: Constipation Nicotine Polacrilex (Nicotine Polacrilex 2 Mg Gum) 2 mg BUCCAL Q2H PRN PRN Reason: Nicotine Cravings Trazodone HCl (Trazodone Hcl 50 Mg Tablet) 50 mg PO BEDTIME PRN PRN Reason: Insomnia Ziprasidone (Ziprasidone 20 Mg Capsule) 20 mg PO TID PRN PRN Reason: agitation Allergies Allergies Allergy/AdvReac Type Severity Reaction Status Date / Time olanzapine [OLANZAPINE] Allergy Severe FACIAL Verified 04/06/21 10:20 SWELLING Assessment & Plan Assessment & Plan (1) Schizoaffective disorder: Status: Chronic Code(s): F25.9 - Schizoaffective disorder, unspecified Assessment and Plan: started meds few days ago - tolerating so far- maybe calmer due to it still pretty shut down (2) Starvation ketoacidosis: Status: Resolved Code(s): E87.2 - Acidosis Assessment and Plan: denies current plan for this (3) PTSD (post-traumatic stress disorder): Status: Suspected Code(s): F43.10 - Post-traumatic stress disorder, unspecified Assessment and Plan: Impression: Patient is a 35-year-old male with history of schizophrenia, paranoid type who presents for paranoid, persecutory delusions, in the face of going off medications, prompting pt to attempt suicide by starvation and water deprivation. While trying to starve himself to , and just days before this admission, patient also attempted to kill himself by overdosing on Tylenol; when this did not work he tried again at a higher dose. Pt now presents to from medical floor where he required fluid resuscitation,?electrolytes replenished and treatment for starvation ketoacidosis, hypernatremia and acute kidney injury.? Pt now medically cleared and transferred to psychiatric unit. ?Patient was recently discharged from the unit around 05/13/2021. HOspital course: Patient currently suffers from severe paranoid persecutory delusions that frequently direct him to harm himself in order to save his family from future torture.? Patient has no insight.? Currently refuses medications and remains on Section 12 B. he says he does not necessarily want to leave the hospital, nor does he want to stay but does not want to sign a CV worried that it will be unacceptable to his persecutors. -patient remains in severe mental anguish over what is the right thing to do, very worried about making the wrong decision which will aggravate his persecutors and therefor put his family in future jeopardy; patient eventually decided to sign a CV but then later signed a 3 day notice.? He agreed to take Clozaril but then was again ambivalent.? Patient remains willing to self-harm to the point of suicide based on paranoid delusions that he must do so in order to save his family from future torment. -over the weekend patient was screaming, out of control and required medication restraint 07/11 patient remains with joel paranoid, persecutory delusions, thoughts to starve himself to based on paranoid delusion, no insight and impaired judgment. -currently he is eating and drinking but only minimally 07/12 pt decided to take Clozaril 07/13:? Patient is tormented seems to have reached a boiling point and he agreed to take Clozaril and sign in 07/15- says he will try a new approach to his decision making; agrees to continue taking Clozaril.? Remains guarded, and with paranoid delusions 07/21 floridly psychotic with intense paranoid, persecutory delusions that are overwhelming patient into repeated unsafe thinking or behavior including suicide, and starvation and water deprivation.? Patient has no insight and does not believe that medications help at all; he goes back and forth about whether to take medications as he's very anxious about contradicting his persecutors whom he believes give him messages directing his behavior. 07/23 pt again decided to stop taking medications, a frequent decision emerging every few days as patient again feels that it's safer to listen to his persecutors (paranoid delusions) then it is to go against their edict and take medications. Over the past 2 weeks, only after lengthy discussions, would patient change his mind and go back to taking medications; however this reversion is not due to any moment of insight but rather a combination of emotional exhaustion and him trying to find a loophole in his persecutors edict to not take medications. -patient put in 3 day notice 07/24-07/28: sometimes withdrawn; sometimes agitated, yelling in anguished distress about being threatened by tormentors; intermittently taking medications 07/29 - rescinded 3 day notice -since then, he's agreed to take medications, though this is intermittent; taking medications however does not represent improved insight or judgment, but as patient explains, is only done because he has for the moment not concluded that They, his torementors, have specifically barred him from doing so. This makes medication management difficult since he is on Clozaril which has a narrow window for which one can safely start/stop this med. om -He continues to intermittently stop Eating and drinking in obedience to paranoid delusion with idea that he should either commit suicide or undergo some other torture; remains without insight; remains anguished. He volunteers that he has received direction on how to kill himself post discharge and he intermittently has plans to kill himself on the unit, though he has thus far been able to limit his actions towards this end. Patient believes he receives messages through various avenues, having thoughts implanted in his head or communications given through media or circumstance. Patient reports he wants to trust this handbook writer and staff but is never sure whether or not handbook writer/staff is part of a conspiracy to torture him. on 08/08: Patient exhibited bizarre, generating movements of primarily his upper torso; handbook writer examined patient and this was not dystonia, akathisia and was not seizure activity but rather patient's own voluntary behavior done in obedience to direction from his imagined persecutor Barrier to discharge:? Patient is floridly psychotic; he has no insight and currently suffers from paranoid, persecutory delusions, believing he needs to either kill himself or engage in behaviors that will result in , in order to fulfill his persecutors demands; if discharged before stable, patient will quickly decompensate and be at high risk for suicide; he requires locked unit, and likely a prison admission, to resolve symptoms with medication management. [facility] considered: Review Scheduling Coordinator reviewed case with Dr. Mcleod and other team members and it was discussed whether or not Dilshad needs a longer term hospitalization such as [facility]. Patient recently revealed that over the days/weeks prior to this admission, in addition to trying to starve/dehydrate himself to , he tried to kill himself 2x by Tylenol overdose, making handbook writer more aware of the extent of his unsafe behavior. Patient remains without any insight at all. He is fully overwhelmed by persecutory delusions. At this point it is becoming increasing difficult for handbook writer to imagine a scenario where Dilshad is safe outside of a longer term commitment where he is court ordered to take medications. For while he has indeed benefited from Clozapine (improved mood, relief from emotional anguish and reprieve from being contacted by persecutors [delusions]) his illness keeps him from attributing that benefit to medication; rather he maintains that medications are placebos and his relief is due to some other cause; and thus, on his own, patient's illness renders him unable to remain adherent with medications. However, if Dilshad had an extended hospital stay and remained on medications for an extended period of months, he may experience his relief from torture? as a product of medications and thus achieve enough insight to remain on medications as an outpatient. Review Scheduling Coordinator will continue to discuss case with colleagues, but is coming to the conclusion that patient requires [facility] admission for his safety. PLAN: Q 15 minutes checks for safety -On CV; he rescinded 3 day at rec from divorce attorney (had petitioned court for substituted judgment, involuntary commitment; Signed 3 day notice on 07/23/21- Petition to court filed- on Section 7) -Team discussing possible need to again petition court for involuntary commitment and substituted judgment for application to [facility] -Continue Clozapine 200mg qhs; may need to suspend clozapine if patient cannot reliably adhere to this medication as there is a narrow window to start and stop this med and the safe manner; for clinical reasons, would otherwise need to titrate further as 200 mg was only partially effective (pt immediately discontinued med on discharge still responding to paranoid delusion) -scheduled clonazepam 0.25 mg b.i.d. for anxiety while Clozaril is being titrated -will use Ziprasidone p.r.n. Micromedex: 1)?Rapid titration in hospitalized patients: Day 1, 50 mg orally followed by 50 to 100 mg as needed every 6 hours (up to an additional 150 mg). Thereafter, may increase daily dosage in increments of 50 to 100 mg. Mean dosage on day 1 was 207 mg/day in patients with prior clozapine exposure and 59.7 mg without prior exposure. Mean titration over 5.44 days to a dosage of 260 mg/day, lead to a mean dosage at discharge of 322 mg/day ?Sarika HEBERT, Peggy? A, Wagner? NG, et al: Rapid clozapine titration in patients with treatment refractory schizophrenia. Psychiatr Q 2016; 87(2):315-322. I spent minutes with the patient and/or on the patient floor today, greater than?50% of which was spent counseling/coordinating care. Reason for contiued inpatient stay Substantial Risk for: harm to self
[2021-08-08] MEDS: diphenhydrAMINE HCL 50 MG/ML VIAL IM (15:04)
[2021-08-08] MEDS: LORazepam 2 MG/ML VIAL IM (15:04)
[2021-08-08 18:00] VITALS: BP 120/71; PULSE 106; TEMP 37.3; O2SAT 94
[2021-08-08] MEDS: cloZAPine 100 MG TABLET 200 MG PO (20:53)
[2021-08-09 06:00] VITALS: BP 110/69; PULSE 124; RESP 16; TEMP 37.2; O2SAT 96
--- NOTE | 2021-08-09 07:38 | PC.NURSE ---
Abnormal Lab Results noted: HR - 124 WBC: 08/01 - 11.7 WBC: 08/08: 12.6 RBC: 5.86 HCT:52.4 Patient noted to not be eating or drinking well recently. Provider Wayne and Covering Hospitalist Sushil Kaur notified.
--- NOTE | 2021-08-09 07:46 | ECG_ITS ---
Test Reason : ELEV HR, WBC Blood Pressure : / mmHG Vent. Rate : 119 BPM Atrial Rate : 119 BPM P-R Int : 160 ms QRS Dur : 090 ms QT Int : 332 ms P-R-T Axes : 062 084 045 degrees QTc Int : 467 ms Sinus tachycardia Otherwise normal ECG When compared with ECG of 03-JUL-2021 22:31, No significant change was found Referred By: Maxwell Black Electronically Signed By:Cody Corea
[2021-08-09] MEDS: LORazepam 2 MG/ML VIAL IM (08:23)
--- NOTE | 2021-08-09 13:19 | HO.PSYCHPN ---
Subjective Subjective Date of Service: 08/09/21 Reason For Visit: Suicidal Interim History: In the morning, Patient again intermittently moving his face, arms and upper torso, gyrating, extending, flexing. Staff informed writer technical publications that patient would intermittently make these movements. That he would abruptly stop making his movements turn to the specific staff member and say there are telling me to stop talking to you and then restart the movements. Sorting And Folding Supervisor ordered Ativan 2 mg which patient received IM. Sorting And Folding Supervisor met with patient who was lying in the bed, calm and only intermittently moving his body, willing and able to talk with writer technical publications. He remains extremely guarded however. Sorting And Folding Supervisor asked patient if these muscle movements were outside of his physical control and automatic or at some level within his control, and/or was he doing this because there was an implanted thought that he must move his body in this way. Patient told writer technical publications that he knows why he is making these movements, that he knows it is not due to the medications but that it is too dangerous for him to tell me why; he explained the dangers is that he is warned not to tell writer technical publications the reason or that he or family would suffer retributions. Patient went on to say i'm scared to give honest answers because of what they might do... He eventually patient decided to tell writer technical publications that the answer of his limit of muscular control is nina and that he has some control, but not always a 100% and that they are also making him do this outside of his control. After he said this, his face became anguish to and he started to hit his head on the wall saying why did I tell you. . . Why didn't I just stay quiet. . . Sorting And Folding Supervisor put his hand behind patient's head to protect his head, calling for help to get an extra pillow. Patient said that they made him hit his head that way as punishment for telling this writer technical [employer]. Patient went on to say he almost wishes that staff would restrain him to keep him from making these movements. He says that they put ideas in his head, thoughts, emotions and long eating is. He said that he knows that he must kill himself on discharge but denies that he has any plans of trying to kill himself on the unit. Sorting And Folding Supervisor and patient discussed medications and writer technical publications's lingering though low level concerned that this could be medication related and the need for labs to which he eventually agreed to. Patient said he will no longer take medications since he was being treated for a mental illness which he does not believe he has. Later in the morning and in the afternoon patient was walking up and down the hallway, not making any unusual body movements. Sorting And Folding Supervisor met with patient later on in 1 of the interview/treatment rooms. Patient was calm, standing and talking with writer technical publications without any unusual body movements. Patient said that he would continue to eat and drink fluids but confirmed that he cannot tell this writer technical publications he will be able to keep himself safe from hitting himself or hitting his head on the wall. Of note patient has a welt on the right cheek which he acknowledged was from punching himself. Mental Status Exam Mental Status Exam Narrative: ?Pt is alert to self, time, place but not situation; behavior is bizarre, with him intermittently making bizarre, flexing movements of his body, limited to no eye contact; thought process is goal oriented; thought content is overwhelmed with paranoid, persecutory delusions about being tortured; intermittent SI as fulfillment of task assigned to him by persecutors; patient has plans on how to kill himself post discharge; patient has intermittent plans and intent to self-harm on the unit; patient believes he receives messages through various avenues, having thoughts implanted in his head or communications given through media which he avoids. Denies [facility]. ?Patients insight and judgment are impaired Diagnostics Vital Signs (24Hr): Vital Signs - 24 hr 08/08/21 18:00 08/09/21 06:00 Temperature 99.1 F 98.9 F Pulse Rate 106 H 124 H Respiratory Rate 16 Blood Pressure 120/71 110/69 Pulse Oximetry 94 96 Labs Results: 08/09/21 18:43 08/09/21 18:43 Labs: Laboratory Results - last 48 hr 08/08/21 08/08/21 08:08 08:08 WBC 12.6 H RBC 5.86 H D Hgb 17.6 D Hct 52.4 H D MCV 89.4 MCH 30.0 MCHC 33.6 RDW 13.5 Plt Count 295 D MPV 10.1 Immature Gran % (Auto) 0.2 Neut % (Auto) 74.3 H Lymph % (Auto) 15.3 L [place] % (Auto) 7.9 Eos % (Auto) 2.0 Baso % (Auto) 0.3 Lymph # (Auto) 1.9 [place] # (Auto) 1.0 Eos # (Auto) 0.3 Baso # (Auto) 0.0 Abs Immat Gran (auto) 0.03 Absolute Neuts (auto) 9.4 H 9.3 H Absolute Nucleated RBC 0.000 Nucleated RBC % (auto) 0.0 Medications Medications Current Medications Acetaminophen (Acetaminophen 325 Mg Tablet) 650 mg PO Q6H PRN PRN Reason: Pain, Mild (Pain Scale 1-3) Al Hydroxide/Mg Hydroxide (Magnesium Hydrox/Alum Hydrox 30 Ml Oral.Susp) 30 ml PO Q6H PRN PRN Reason: Heartburn/Nausea Calcium Carbonate (Calcium Carbonate 750 Mg Tab.Chew) 750 mg PO Q4H PRN PRN Reason: Indigestion Last Admin: 08/06/21 19:35 Dose: 750 mg Documented by: Clozapine (Clozapine 100 Mg Tablet) 200 mg PO BEDTIME FIDEL Last Admin: 08/08/21 20:53 Dose: 200 mg Documented by: Diphenhydramine HCl (Diphenhydramine Hcl 25 Mg Tablet) 50 mg PO Q4H PRN PRN Reason: agitation Last Admin: 07/26/21 09:00 Dose: 50 mg Documented by: Hydroxyzine HCl (Hydroxyzine Hcl 25 Mg Tablet) 25 mg PO BEDTIME PRN PRN Reason: Anxiety Last Admin: 08/04/21 21:07 Dose: 25 mg Documented by: Magnesium Hydroxide (Milk Of Magnesia 30 Ml Oral.Susp) 30 ml PO DAILY PRN PRN Reason: Constipation Nicotine Polacrilex (Nicotine Polacrilex 2 Mg Gum) 2 mg BUCCAL Q2H PRN PRN Reason: Nicotine Cravings Trazodone HCl (Trazodone Hcl 50 Mg Tablet) 50 mg PO BEDTIME PRN PRN Reason: Insomnia Ziprasidone (Ziprasidone 20 Mg Capsule) 20 mg PO TID PRN PRN Reason: agitation Allergies Allergies Allergy/AdvReac Type Severity Reaction Status Date / Time olanzapine [OLANZAPINE] Allergy Severe FACIAL Verified 04/06/21 10:20 SWELLING Assessment & Plan Assessment & Plan (1) Schizoaffective disorder: Status: Chronic Code(s): F25.9 - Schizoaffective disorder, unspecified Assessment and Plan: started meds few days ago - tolerating so far- maybe calmer due to it still pretty shut down (2) Starvation ketoacidosis: Status: Resolved Code(s): E87.2 - Acidosis Assessment and Plan: denies current plan for this (3) PTSD (post-traumatic stress disorder): Status: Suspected Code(s): F43.10 - Post-traumatic stress disorder, unspecified Assessment and Plan: Impression: Patient is a 35-year-old male with history of schizophrenia, paranoid type who presents for paranoid, persecutory delusions, in the face of going off medications, prompting pt to attempt suicide by starvation and water deprivation. While trying to starve himself to , and just days before this admission, patient also attempted to kill himself by overdosing on Tylenol; when this did not work he tried again at a higher dose. Pt now presents to from medical floor where he required fluid resuscitation,?electrolytes replenished and treatment for starvation ketoacidosis, hypernatremia and acute kidney injury.? Pt now medically cleared and transferred to psychiatric unit. ?Patient was recently discharged from the unit around 05/13/2021. HOspital course: Patient currently suffers from severe paranoid persecutory delusions that frequently direct him to harm himself in order to save his family from future torture.? Patient has no insight.? Currently refuses medications and remains on [place] 12 B. he says he does not necessarily want to leave the hospital, nor does he want to stay but does not want to sign a CV worried that it will be unacceptable to his persecutors. -patient remains in severe mental anguish over what is the right thing to do, very worried about making the wrong decision which will aggravate his persecutors and therefor put his family in future jeopardy; patient eventually decided to sign a CV but then later signed a 3 day notice.? He agreed to take Clozaril but then was again ambivalent.? Patient remains willing to self-harm to the point of suicide based on paranoid delusions that he must do so in order to save his family from future torment. -over the weekend patient was screaming, out of control and required medication restraint 07/11 patient remains with joel paranoid, persecutory delusions, thoughts to starve himself to based on paranoid delusion, no insight and impaired judgment. -currently he is eating and drinking but only minimally 07/12 pt decided to take Clozaril 07/13:? Patient is tormented seems to have reached a boiling point and he agreed to take Clozaril and sign in 07/15- says he will try a new approach to his decision making; agrees to continue taking Clozaril.? Remains guarded, and with paranoid delusions 07/21 floridly psychotic with intense paranoid, persecutory delusions that are overwhelming patient into repeated unsafe thinking or behavior including suicide, and starvation and water deprivation.? Patient has no insight and does not believe that medications help at all; he goes back and forth about whether to take medications as he's very anxious about contradicting his persecutors whom he believes give him messages directing his behavior. 07/23 pt again decided to stop taking medications, a frequent decision emerging every few days as patient again feels that it's safer to listen to his persecutors (paranoid delusions) then it is to go against their edict and take medications. Over the past 2 weeks, only after lengthy discussions, would patient change his mind and go back to taking medications; however this reversion is not due to any moment of insight but rather a combination of emotional exhaustion and him trying to find a loophole in his persecutors edict to not take medications. -patient put in 3 day notice 07/24-07/28: sometimes withdrawn; sometimes agitated, yelling in anguished distress about being threatened by tormentors; intermittently taking medications 07/29 - rescinded 3 day notice -since then, he's agreed to take medications, though this is intermittent; taking medications however does not represent improved insight or judgment, but as patient explains, is only done because he has for the moment not concluded that They, his torementors, have specifically barred him from doing so. This makes medication management difficult since he is on Clozaril which has a narrow window for which one can safely start/stop this med. om -He continues to intermittently stop Eating and drinking in obedience to paranoid delusion with idea that he should either commit suicide or undergo some other torture; remains without insight; remains anguished. He volunteers that he has received direction on how to kill himself post discharge and he intermittently has plans to kill himself on the unit, though he has thus far been able to limit his actions towards this end. Patient believes he receives messages through various avenues, having thoughts implanted in his head or communications given through media or circumstance. Patient reports he wants to trust this writer technical publications and staff but is never sure whether or not writer technical publications/staff is part of a conspiracy to torture him. on 08/08: Patient exhibited bizarre, generating movements of primarily his upper torso; writer technical publications examined patient and this was not dystonia, akathisia and was not seizure activity but rather patient's own voluntary behavior done in obedience to direction from his imagined persecutor; pt later confirmed this. Patient told writer technical publications that since medications are being given to treat a mental illness, which he does not believe he has, he will no longer take medications Barrier to discharge:? Patient is floridly psychotic; he has no insight and currently suffers from paranoid, persecutory delusions, believing he needs to either kill himself or engage in behaviors that will result in , in order to fulfill his persecutors demands; if discharged before stable, patient will quickly decompensate and be at high risk for suicide; he requires locked unit, and likely a alf admission, to resolve symptoms with medication management. BRENDA considered: Sorting And Folding Supervisor reviewed case with Dr. Mcleod and other team members and it was discussed whether or not Dilshad needs a longer term hospitalization such as [facility]. Patient recently revealed that over the days/weeks prior to this admission, in addition to trying to starve/dehydrate himself to , he tried to kill himself 2x by Tylenol overdose, making writer technical publications more aware of the extent of his unsafe behavior. Patient remains without any insight at all. He is fully overwhelmed by persecutory delusions. At this point it is becoming increasing difficult for writer technical publications to imagine a scenario where Dilshad is safe outside of a longer term commitment where he is court ordered to take medications. For while he has indeed benefited from Clozapine (improved mood, relief from emotional anguish and reprieve from being contacted by persecutors [delusions]) his illness keeps him from attributing that benefit to medication; rather he maintains that medications are placebos and his relief is due to some other cause; and thus, on his own, patient's illness renders him unable to remain adherent with medications. However, if Dilshad had an extended hospital stay and remained on medications for an extended period of months, he may experience his relief from torture? as a product of medications and thus achieve enough insight to remain on medications as an outpatient. Sorting And Folding Supervisor will continue to discuss case with colleagues, but is coming to the conclusion that patient requires [facility] admission for his safety. PLAN: advance to 1:1 Bizarre body movements: -patient's movements present as voluntary and very unlikely to be medication related. Clozapine induced myoclonus is a possibility but again given patient's presentation and his own self reporting that these movements are guided by delusional thought, it again is very unlikely. NMS is a rule out but again very unlikely given that patient is autonomically stable, afebrile and able to be/present without any muscle rigidity. While WBC is mildly elevated, this can certainly be due to patient's intense emotional stress. -Will order labs to rule out an NMS; writer technical publications expects CPK to be elevated given his intense muscular work out. -EKG ordered and looks to be within normal limits however it has yet to be read by a lumpia wrapper maker which is pending -tachycardic but otherwise vitals within normal limits. -will discontinue clozapine since patient no longer wants to take it involuntary commitment: -On CV; patient is refusing medications and does not believe he has a mental illness or that he needs to be on the unit to be treated for a mental illness. Will petition court for substituted judgment, involuntary commitment; -Team agrees that patient requires [facility] [facility] admission and will appy to [facility] -DISCONTINUE Clozapine 200mg qhs;PT now refuses to take it -scheduled clonazepam 0.25 mg b.i.d. for anxiety while Clozaril is being titrated -will use Ziprasidone p.r.n. Micromedex: 1)?Rapid titration in hospitalized patients: Day 1, 50 mg orally followed by 50 to 100 mg as needed every 6 hours (up to an additional 150 mg). Thereafter, may increase daily dosage in increments of 50 to 100 mg. Mean dosage on day 1 was 207 mg/day in patients with prior clozapine exposure and 59.7 mg without prior exposure. Mean titration over 5.44 days to a dosage of 260 mg/day, lead to a mean dosage at discharge of 322 mg/day ?Sarika HEBERT, Peggy? A, Wagner? NG, et al: Rapid clozapine titration in patients with treatment refractory schizophrenia. Psychiatr Q 2016; 87(2):315-322. I spent minutes with the patient and/or on the patient floor today, greater than?50% of which was spent counseling/coordinating care. Reason for contiued inpatient stay Substantial Risk for: harm to self and inability to function
[2021-08-09 17:15] VITALS: BP 102/80; PULSE 92; TEMP 36.7
[2021-08-09 18:49] LABS: MANUAL DIFF FLAG NO
[2021-08-09 18:51] LABS: Basophils Percent Auto 0.5 % (0-2); Eosinophils Absolute Auto 0.2 X10*3/uL (0.0-0.4); Eosinophils Percent Auto 2.5 % (0-4); Hematocrit 40.5 % (42.0-52.0); Hemoglobin 13.6 g/dl (14.0-18.0); Imm Gran Abs Auto 0.02 X10*3/uL (0.00-0.03); Imm Gran Pct Auto 0.2 % (0.0-0.4); Lymphocytes Absolute Auto 1.7 X10*3/uL (1.2-4.9); Lymphocytes Percent Auto 20.1 % (20-40); Mean Corpuscular HGB Conc 33.6 g/dl (31.0-36.0); Mean Corpuscular Hemoglobin 30.1 pg (27.0-33.0); Mean Corpuscular Volume 89.6 fL (80.0-98.0); Mean Platelet Volume 10.1 fL (9.4-12.4); Monocytes Absolute Auto 0.7 X10*3/uL (0.1-1.2); Monocytes Percent Auto 8.1 % (2-11); Neutrophils Absolute Auto 5.9 x10*3/uL (2.0-8.3); Neutrophils Percent Auto 68.6 % (45-73); Platelet Count 242 X10*3/uL (160-400); Red Blood Count 4.52 X10*6/uL (4.60-5.80); Red Cell Distribution Width 13.2 % (11.0-16.0); White Blood Count 8.6 X10*3/uL (4.8-10.8)
[2021-08-09 19:16] LABS: Alanine Aminotransferase 28 U/L (0-40); Albumin Level 3.8 g/dL (3.5-5.0); Alkaline Phosphatase 79 U/L (39-117); Anion Gap 12 (12-20); Aspartate Amino Transferase 17 U/L (5-37); Bilirubin Direct 0.2 mg/dL (0.0-0.5); Bilirubin Total 0.6 mg/dL (0.0-1.0); Blood Urea Nitrogen 14 mg/dL (9-16); Carbon Dioxide 30 mmol/L (22-29); Chloride 104 mmol/L (96-108); Estimated Glomerular Filt Rate > 60; Potassium 3.6 mmol/L (3.3-5.1); Sodium 142 mmol/L (135-145); Total Protein 6.2 g/dL (6.5-8.0)
[2021-08-09 19:22] LABS: Lactate Dehydrogenase 155 U/L (118-273)
[2021-08-09] MEDS: LORazepam 0.5 MG TABLET PO (20:18)
[2021-08-10] MEDS: LORazepam 2 MG/ML VIAL IM (09:48)
[2021-08-10] MEDS: Ziprasidone Mesylate 20 MG VIAL IM (09:52)
--- NOTE | 2021-08-10 10:03 | HO.PSYCHPN ---
Subjective Subjective Date of Service: 08/10/21 Reason For Visit: Suicidal Interim History: Patient became out of control, screaming, banging his head on the wall and unable to be redirected; he required IM medication ziprasidone and Ativan. After which patient was able to be calm and said he was benefitting from weighted blanket. The rest of the day he remained calm and not agitated; he periodically would have some bizarre movements but much less so. Mental Status Exam Mental Status Exam Narrative: Pt is alert to self, time, place but not situation; behavior is mostly calm, lying under weighted blanket bizarre, with him intermittently making bizarre, flexing movements of his face, but much less so; limited to no eye contact; thought process is goal oriented; thought content is overwhelmed with paranoid, persecutory delusions about being tortured; intermittent SI as fulfillment of task assigned to him by persecutors; patient has plans on how to kill himself post discharge; patient has intermittent plans and intent to self-harm on the unit; patient believes he receives messages through various avenues, having thoughts implanted in his head or communications given through media which he avoids. Denies [facility]. ?Patients insight and judgment are impaired Diagnostics Vital Signs (24Hr): Vital Signs - 24 hr 08/09/21 17:15 Temperature 98.1 F Pulse Rate 92 Blood Pressure 102/80 Labs Results: 08/09/21 18:43 08/09/21 18:43 Labs: Laboratory Results - last 48 hr 08/09/21 08/09/21 18:43 18:43 WBC 8.6 RBC 4.52 L D Hgb 13.6 L D Hct 40.5 L D MCV 89.6 MCH 30.1 MCHC 33.6 RDW 13.2 Plt Count 242 MPV 10.1 Immature Gran % (Auto) 0.2 Neut % (Auto) 68.6 Lymph % (Auto) 20.1 [place] % (Auto) 8.1 Eos % (Auto) 2.5 Baso % (Auto) 0.5 Lymph # (Auto) 1.7 [place] # (Auto) 0.7 Eos # (Auto) 0.2 Baso # (Auto) 0.0 Abs Immat Gran (auto) 0.02 Absolute Neuts (auto) 5.9 Absolute Nucleated RBC 0.000 Nucleated RBC % (auto) 0.0 Sodium 142 Potassium 3.6 Chloride 104 Carbon Dioxide 30 H Anion Gap 12 BUN 14 Creatinine 0.81 Estim Creat Clear Calc TNP Estimated GFR > 60 Total Bilirubin 0.6 Direct Bilirubin 0.2 AST 17 ALT 28 Alkaline Phosphatase 79 D Lactate Dehydrogenase 155 Total Creatine Kinase 441 H D Total Protein 6.2 L D Albumin 3.8 D Medications Medications Current Medications Acetaminophen (Acetaminophen 325 Mg Tablet) 650 mg PO Q6H PRN PRN Reason: Pain, Mild (Pain Scale 1-3) Al Hydroxide/Mg Hydroxide (Magnesium Hydrox/Alum Hydrox 30 Ml Oral.Susp) 30 ml PO Q6H PRN PRN Reason: Heartburn/Nausea Calcium Carbonate (Calcium Carbonate 750 Mg Tab.Chew) 750 mg PO Q4H PRN PRN Reason: Indigestion Last Admin: 08/06/21 19:35 Dose: 750 mg Documented by: Diphenhydramine HCl (Diphenhydramine Hcl 25 Mg Tablet) 50 mg PO Q4H PRN PRN Reason: agitation Last Admin: 07/26/21 09:00 Dose: 50 mg Documented by: Hydroxyzine HCl (Hydroxyzine Hcl 25 Mg Tablet) 25 mg PO BEDTIME PRN PRN Reason: Anxiety Last Admin: 08/04/21 21:07 Dose: 25 mg Documented by: Lorazepam (Lorazepam 0.5 Mg Tablet) 0.5 mg PO BID FIDEL Last Admin: 08/09/21 20:18 Dose: 0.5 mg Documented by: Lorazepam (Lorazepam 1 Mg Tablet) 2 mg PO TID PRN PRN Reason: severe anxiety or agitation Magnesium Hydroxide (Milk Of Magnesia 30 Ml Oral.Susp) 30 ml PO DAILY PRN PRN Reason: Constipation Nicotine Polacrilex (Nicotine Polacrilex 2 Mg Gum) 2 mg BUCCAL Q2H PRN PRN Reason: Nicotine Cravings Trazodone HCl (Trazodone Hcl 50 Mg Tablet) 50 mg PO BEDTIME PRN PRN Reason: Insomnia Ziprasidone (Ziprasidone 20 Mg Capsule) 20 mg PO TID PRN PRN Reason: agitation Allergies Allergies Allergy/AdvReac Type Severity Reaction Status Date / Time olanzapine [OLANZAPINE] Allergy Severe FACIAL Verified 04/06/21 10:20 SWELLING Assessment & Plan Assessment & Plan (1) Schizoaffective disorder: Status: Chronic Code(s): F25.9 - Schizoaffective disorder, unspecified Assessment and Plan: started meds few days ago - tolerating so far- maybe calmer due to it still pretty shut down (2) Starvation ketoacidosis: Status: Resolved Code(s): E87.2 - Acidosis Assessment and Plan: denies current plan for this (3) PTSD (post-traumatic stress disorder): Status: Suspected Code(s): F43.10 - Post-traumatic stress disorder, unspecified Assessment and Plan: Impression: Patient is a 35-year-old male with history of schizophrenia, paranoid type who presents for paranoid, persecutory delusions, in the face of going off medications, prompting pt to attempt suicide by starvation and water deprivation. While trying to starve himself to , and just days before this admission, patient also attempted to kill himself by overdosing on Tylenol; when this did not work he tried again at a higher dose. Pt now presents to [facility] from medical floor where he required fluid resuscitation,?electrolytes replenished and treatment for starvation ketoacidosis, hypernatremia and acute kidney injury.? Pt now medically cleared and transferred to psychiatric unit. ?Patient was recently discharged from the unit around 05/13/2021. HOspital course: Patient currently suffers from severe paranoid persecutory delusions that frequently direct him to harm himself in order to save his family from future torture.? Patient has no insight.? Currently refuses medications and remains on [place] 12 B. he says he does not necessarily want to leave the hospital, nor does he want to stay but does not want to sign a CV worried that it will be unacceptable to his persecutors. -patient remains in severe mental anguish over what is the right thing to do, very worried about making the wrong decision which will aggravate his persecutors and therefor put his family in future jeopardy; patient eventually decided to sign a CV but then later signed a 3 day notice.? He agreed to take Clozaril but then was again ambivalent.? Patient remains willing to self-harm to the point of suicide based on paranoid delusions that he must do so in order to save his family from future torment. -over the weekend patient was screaming, out of control and required medication restraint 07/11 patient remains with joel paranoid, persecutory delusions, thoughts to starve himself to based on paranoid delusion, no insight and impaired judgment. -currently he is eating and drinking but only minimally 07/12 pt decided to take Clozaril 07/13:? Patient is tormented seems to have reached a boiling point and he agreed to take Clozaril and sign in 07/15- says he will try a new approach to his decision making; agrees to continue taking Clozaril.? Remains guarded, and with paranoid delusions 07/21 floridly psychotic with intense paranoid, persecutory delusions that are overwhelming patient into repeated unsafe thinking or behavior including suicide, and starvation and water deprivation.? Patient has no insight and does not believe that medications help at all; he goes back and forth about whether to take medications as he's very anxious about contradicting his persecutors whom he believes give him messages directing his behavior. 07/23 pt again decided to stop taking medications, a frequent decision emerging every few days as patient again feels that it's safer to listen to his persecutors (paranoid delusions) then it is to go against their edict and take medications. Over the past 2 weeks, only after lengthy discussions, would patient change his mind and go back to taking medications; however this reversion is not due to any moment of insight but rather a combination of emotional exhaustion and him trying to find a loophole in his persecutors edict to not take medications. -patient put in 3 day notice 07/24-07/28: sometimes withdrawn; sometimes agitated, yelling in anguished distress about being threatened by tormentors; intermittently taking medications 07/29 - rescinded 3 day notice -since then, he's agreed to take medications, though this is intermittent; taking medications however does not represent improved insight or judgment, but as patient explains, is only done because he has for the moment not concluded that They, his torementors, have specifically barred him from doing so. This makes medication management difficult since he is on Clozaril which has a narrow window for which one can safely start/stop this med. om -He continues to intermittently stop Eating and drinking in obedience to paranoid delusion with idea that he should either commit suicide or undergo some other torture; remains without insight; remains anguished. He volunteers that he has received direction on how to kill himself post discharge and he intermittently has plans to kill himself on the unit, though he has thus far been able to limit his actions towards this end. Patient believes he receives messages through various avenues, having thoughts implanted in his head or communications given through media or circumstance. Patient reports he wants to trust this resume writer and staff but is never sure whether or not resume writer/staff is part of a conspiracy to torture him. on 08/08: Patient exhibited bizarre, generating movements of primarily his upper torso; resume writer examined patient and this was not dystonia, akathisia and was not seizure activity but rather patient's own voluntary behavior done in obedience to direction from his imagined persecutor; pt later confirmed this. Patient told resume writer that since medications are being given to treat a mental illness, which he does not believe he has, he will no longer take medications -08/10required IM medication, chemical restraint for wild in unsafe behavior, hitting his head against the wall unable to be redirected Barrier to discharge:? Patient is floridly psychotic; he has no insight and currently suffers from paranoid, persecutory delusions, believing he needs to either kill himself or engage in behaviors that will result in , in order to fulfill his persecutors demands; if discharged before stable, patient will quickly decompensate and be at high risk for suicide; he requires locked unit, and likely a bed bug exterminator admission, to resolve symptoms with medication management. BRENDA considered: Sales And Marketing Representative reviewed case with Dr. Mcleod and other team members and it was discussed whether or not Dilshad needs a longer term hospitalization such as [facility]. Patient recently revealed that over the days/weeks prior to this admission, in addition to trying to starve/dehydrate himself to , he tried to kill himself 2x by Tylenol overdose, making resume writer more aware of the extent of his unsafe behavior. Patient remains without any insight at all. He is fully overwhelmed by persecutory delusions. At this point it is becoming increasing difficult for resume writer to imagine a scenario where Dilshad is safe outside of a longer term commitment where he is court ordered to take medications. For while he has indeed benefited from Clozapine (improved mood, relief from emotional anguish and reprieve from being contacted by persecutors [delusions]) his illness keeps him from attributing that benefit to medication; rather he maintains that medications are placebos and his relief is due to some other cause; and thus, on his own, patient's illness renders him unable to remain adherent with medications. However, if Dilshad had an extended hospital stay and remained on medications for an extended period of months, he may experience his relief from torture? as a product of medications and thus achieve enough insight to remain on medications as an outpatient. Sales And Marketing Representative will continue to discuss case with colleagues, but is coming to the conclusion that patient requires [facility] admission for his safety. PLAN: advance to 1:1 Bizarre body movements: Decreased -patient's movements present as voluntary and very unlikely to be medication related. Clozapine induced myoclonus is a possibility but again given patient's presentation and his own self reporting that these movements are guided by delusional thought, it again is very unlikely. NMS is a rule out but again very unlikely given that patient is autonomically stable, afebrile and able to be/present without any muscle rigidity. While WBC is mildly elevated, this can certainly be due to patient's intense emotional stress. -CPK elevated which was expected; BUN creatinine normal; LDH normal; afebrile -EKG within normal limits -will discontinue clozapine since patient no longer wants to take it involuntary commitment: -On CV; patient is refusing medications and does not believe he has a mental illness or that he needs to be on the unit to be treated for a mental illness. Will petition court for substituted judgment, involuntary commitment; -Team agrees that patient requires [facility] admission and will appy to [facility] -DISCONTINUE Clozapine 200mg qhs;PT now refuses to take it -scheduled clonazepam 0.25 mg b.i.d. for anxiety while Clozaril is being titrated -will use Ziprasidone p.r.n. Micromedex: 1)?Rapid titration in hospitalized patients: Day 1, 50 mg orally followed by 50 to 100 mg as needed every 6 hours (up to an additional 150 mg). Thereafter, may increase daily dosage in increments of 50 to 100 mg. Mean dosage on day 1 was 207 mg/day in patients with prior clozapine exposure and 59.7 mg without prior exposure. Mean titration over 5.44 days to a dosage of 260 mg/day, lead to a mean dosage at discharge of 322 mg/day ?Sarika HEBERT, Peggy? A, Wagner? NG, et al: Rapid clozapine titration in patients with treatment refractory schizophrenia. Psychiatr Q 2016; 87(2):315-322. I spent minutes with the patient and/or on the patient floor today, greater than?50% of which was spent counseling/coordinating care. Reason for contiued inpatient stay Substantial Risk for: harm to self and inability to function
--- NOTE | 2021-08-10 10:13 | PC.NURSE ---
Pt heard screaming in room. Staff ran in and found pt hitting his head against wall, screaming, unable to be redirected away from doing so. Staff needed to hold pt away from the wall to prevent further injury. Pt declined any prn medication, declining all other offered interventions.
--- NOTE | 2021-08-10 10:51 | P.EN_ITS ---
Event Note Date of Service: 08/10/21 Event Note: this morning, pt screaming, hitting his head on wall and could not be redirected, refused prns; needed IM Ativan 2mg and Geodon 20mg; soon afterward pt was able to calm down; he told scenario writer he was feeling more calm and that weighted blanket was helpful. pt remains on 1:1
--- NOTE | 2021-08-11 10:28 | P.PNPSI_ITS ---
Subjective Subjective Date of Service: 08/11/21 Reason For Visit: Suicidal Interim History: Patient was calm today. He asked to come off one-to-one saying he does not think he needs it now. Patient said that currently he does not think he will self-harm. He also says that he will try to alert staff if that idea, intention or plan and comes back. Substance Abuse Counselor agreed to reassess at the end of the day patient remains in safe behavioral control. Patient not making body/facial movements today. Mental Status Exam Mental Status Exam Narrative: ?Pt is alert to self, time, place but not situation; behavior is calm, lying on top of bed; no flexing movements of his face; limited eye contact; thought process is goal oriented; thought content on not needing 1:1; remains preoccupied dealing with paranoid, persecutory delusions about being tortured by they. Intermittent SI as fulfillment of task assigned to him by persecutors; patient has intermittent plans and intent to self-harm on the unit; patient believes he receives messages through various avenues, having thoughts implanted in his head or communications given through media which he avoids. Denies AvH. ?Patients insight and judgment are impaired Diagnostics Labs Results: 08/15/21 07:58 08/09/21 18:43 Labs: Laboratory Results - last 48 hr 08/09/21 08/09/21 18:43 18:43 WBC 8.6 RBC 4.52 L D Hgb 13.6 L D Hct 40.5 L D MCV 89.6 MCH 30.1 MCHC 33.6 RDW 13.2 Plt Count 242 MPV 10.1 Immature Gran % (Auto) 0.2 Neut % (Auto) 68.6 Lymph % (Auto) 20.1 Sevier % (Auto) 8.1 Eos % (Auto) 2.5 Baso % (Auto) 0.5 Lymph # (Auto) 1.7 Sevier # (Auto) 0.7 Eos # (Auto) 0.2 Baso # (Auto) 0.0 Abs Immat Gran (auto) 0.02 Absolute Neuts (auto) 5.9 Absolute Nucleated RBC 0.000 Nucleated RBC % (auto) 0.0 Sodium 142 Potassium 3.6 Chloride 104 Carbon Dioxide 30 H Anion Gap 12 BUN 14 Creatinine 0.81 Estim Creat Clear Calc TNP Estimated GFR > 60 Total Bilirubin 0.6 Direct Bilirubin 0.2 AST 17 ALT 28 Alkaline Phosphatase 79 D Lactate Dehydrogenase 155 Total Creatine Kinase 441 H D Total Protein 6.2 L D Albumin 3.8 D Medications Medications Current Medications Acetaminophen (Acetaminophen 325 Mg Tablet) 650 mg PO Q6H PRN PRN Reason: Pain, Mild (Pain Scale 1-3) Al Hydroxide/Mg Hydroxide (Magnesium Hydrox/Alum Hydrox 30 Ml Oral.Susp) 30 ml PO Q6H PRN PRN Reason: Heartburn/Nausea Calcium Carbonate (Calcium Carbonate 750 Mg Tab.Chew) 750 mg PO Q4H PRN PRN Reason: Indigestion Last Admin: 08/06/21 19:35 Dose: 750 mg Documented by: Diphenhydramine HCl (Diphenhydramine Hcl 25 Mg Tablet) 50 mg PO Q4H PRN PRN Reason: agitation Last Admin: 07/26/21 09:00 Dose: 50 mg Documented by: Hydroxyzine HCl (Hydroxyzine Hcl 25 Mg Tablet) 25 mg PO BEDTIME PRN PRN Reason: Anxiety Last Admin: 08/04/21 21:07 Dose: 25 mg Documented by: Lorazepam (Lorazepam 0.5 Mg Tablet) 0.5 mg PO BID FIDEL Last Admin: 08/11/21 09:22 Dose: Not Given Documented by: Lorazepam (Lorazepam 1 Mg Tablet) 2 mg PO TID PRN PRN Reason: severe anxiety or agitation Magnesium Hydroxide (Milk Of Magnesia 30 Ml Oral.Susp) 30 ml PO DAILY PRN PRN Reason: Constipation Nicotine Polacrilex (Nicotine Polacrilex 2 Mg Gum) 2 mg BUCCAL Q2H PRN PRN Reason: Nicotine Cravings Trazodone HCl (Trazodone Hcl 50 Mg Tablet) 50 mg PO BEDTIME PRN PRN Reason: Insomnia Ziprasidone (Ziprasidone 20 Mg Capsule) 20 mg PO TID PRN PRN Reason: agitation Allergies Allergies Allergy/AdvReac Type Severity Reaction Status Date / Time olanzapine [OLANZAPINE] Allergy Severe FACIAL Verified 04/06/21 10:20 SWELLING Assessment & Plan Assessment & Plan (1) Schizoaffective disorder: Status: Chronic Code(s): F25.9 - Schizoaffective disorder, unspecified Assessment and Plan: started meds few days ago - tolerating so far- maybe calmer due to it still pretty shut down (2) Starvation ketoacidosis: Status: Resolved Code(s): E87.2 - Acidosis Assessment and Plan: denies current plan for this (3) PTSD (post-traumatic stress disorder): Status: Suspected Code(s): F43.10 - Post-traumatic stress disorder, unspecified Assessment and Plan: Impression: Patient is a 35-year-old male with history of schizophrenia, paranoid type who presents for paranoid, persecutory delusions, in the face of going off medications, prompting pt to attempt suicide by starvation and water deprivation. While trying to starve himself to , and just days before this admission, patient also attempted to kill himself by overdosing on Tylenol; when this did not work he tried again at a higher dose. Pt now presents to from medical floor where he required fluid resuscitation,?electrolytes replenished and treatment for starvation ketoacidosis, hypernatremia and acute kidney injury.? Pt now medically cleared and transferred to psychiatric unit. ?Patient was recently discharged from the unit around 05/13/2021. HOspital course: Patient currently suffers from severe paranoid persecutory delusions that fr equently direct him to harm himself in order to save his family from future torture.? Patient has no insight.? Currently refuses medications and remains on [place] 12 B. he says he does not necessarily want to leave the hospital, nor does he want to stay but does not want to sign a CV worried that it will be unacceptable to his persecutors. -patient remains in severe mental anguish over what is the right thing to do, very worried about making the wrong decision which will aggravate his persecuto rs and therefor put his family in future jeopardy; patient eventually decided to sign a CV but then later signed a 3 day notice.? He agreed to take Clozaril but then was again ambivalent.? Patient remains willing to self-harm to the point of suicide based on paranoid delusions that he must do so in order to save his family from future torment. -over the weekend patient was screaming, out of control and required medication restraint 07/11 patient remains with joel paranoid, persecutory delusions, thoughts to starve himself to based on paranoid delusion, no insight and impaired judgment. -currently he is eating and drinking but only minimally 07/12 pt decided to take Clozaril 07/13:? Patient is tormented seems to have reached a boiling point and he agreed to take Clozaril and sign in 07/15- says he will try a new approach to his decision making; agrees to continue taking Clozaril.? Remains guarded, and with paranoid delusions 07/21 floridly psychotic with intense paranoid, persecutory delusions that are overwhelming patient into repeated unsafe thinking or behavior including suici de, and starvation and water deprivation.? Patient has no insight and does not believe that medications help at all; he goes back and forth about whether to take medications as he's very anxious about contradicting his persecutors whom he believes give him messages directing his behavior. 07/23 pt again decided to stop taking medications, a frequent decision emerging every few days as patient again feels that it's safer to listen to his persecutors (paranoid delusions) then it is to go against their edict and take medications. Over the past 2 weeks, only after lengthy discussions, would patien t change his mind and go back to taking medications; however this reversion is not due to any moment of insight but rather a combination of emotional exhaustion and him trying to find a loophole in his persecutors edict to not take medications. -patient put in 3 day notice 07/24-07/28: sometimes withdrawn; sometimes agitated, yelling in anguished distress about being threatened by tormentors; intermittently taking medications 07/29 - rescinded 3 day notice -since then, he's agreed to take medications, though this is intermittent; taking medications however does not represent improved insight or judgment, but as patient explains, is only done because he has for the moment not concluded that They, his torementors, have specifically barred him from doing so. This makes medication management difficult since he is on Clozaril which has a narrow window for which one can safely start/stop this med. om -He continues to intermittently stop Eating and drinking in obedience to paranoid delusion with idea that he should either commit suicide or undergo some other torture; remains without insight; remains anguished. He volunteers that he has received direction on how to kill himself post discharge and he intermittently has plans to kill himself on the unit, though he has thus far been able to limit his actions towards this end. Patient believes he receives messages through various avenues, having thoughts implanted in his head or communications given through media or circumstance. Patient reports he wants to trust this automobile service writer and staff but is never sure whether or not automobile service writer/staff is part of a conspiracy to torture him. on 08/08: Patient exhibited bizarre, generating movements of primarily his upper torso; automobile service writer examined patient and this was not dystonia, akathisia and was not seizure activity but rather patient's own voluntary behavior done in obedience to direction from his imagined persecutor; pt later confirmed this. Patient told automobile service writer that since medications are being given to treat a mental illness, which he does not believe he has, he will no longer take medications -08/10required IM medication, chemical restraint for wild in unsafe behavior, hitting his head against the wall unable to be redirected 08/11 more calm; body movements not present; can advance to q5 and off 1:1 for now (discussed with staff who agree). Barrier to discharge:? Patient is floridly psychotic; he has no insight and currently suffers from paranoid, persecutory delusions, believing he needs to either kill himself or engage in behaviors that will result in , in order to fulfill his persecutors demands; if discharged before stable, patient will quickly decompensate and be at high risk for suicide; he requires locked unit, a nd likely a [facility] admission, to resolve symptoms with medication management. BRENDA considered: Substance Abuse Counselor reviewed case with Dr. Mcleod and other team members and it was discussed whether or not Dilshad needs a longer term hospitalization such as [facility]. Patient recently revealed that over the days/weeks prior to this admission, in addition to trying to starve/dehydrate himself to , he tried to kill himself 2x by Tylenol overdose, making automobile service writer more aware of the extent of his unsafe behavior. Patient remains without any insight at all. He is fully overwhelmed by persecutory delusions. At this point it is becoming increasing difficult for automobile service writer to imagine a scenario where Dilshad is safe outside of a longer term commitment where he is court ordered to take medications. For while he has indeed benefited from Clozapine (improved mood, relief from emotional anguish and reprieve from being contacted by persecutors [delusions]) his illness keeps him from attributing that benefit to medication; rather he maintains that medications are placebos and his relief is due to some other cause; and thus, on his own, patient's illness renders him unable to remain adherent with medications. However, if Dilshad had an extended hospital stay and remained on medications for an extended period of months, he may experience his relief from torture? as a product of medications and thus achieve enough insight to remain on medications as an outpatient. Substance Abuse Counselor will continue to collin camacho case with colleagues, but is coming to the conclusion that patient requires [facility] admission for his safety. PLAN: q5 Bizarre body movements: subsiding -patient's movements present as voluntary and very unlikely to be medication related. Clozapine induced myoclonus is a possibility but again given patient's presentation and his own self reporting that these movements are guided by delusional thought, it again is very unlikely. NMS is a rule out but again very unlikely given that patient is autonomically stable, afebrile and able to be /present without any muscle rigidity. While WBC is mildly elevated, this can certainly be due to patient's intense emotional stress. -labs; [facility] wnl; CPK elevated as expected; bun/cr WNL -EKG ordered and looks to be within normal limits however it has yet to be read by a beach attendant which is pending -tachycardic but otherwise vitals within normal limits. -will discontinue clozapine since patient no longer wants to take it involuntary commitment: -On CV; patient is refusing medications and does not believe he has a mental illness or that he needs to be on the unit to be treated for a mental illness. 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 for anxiety while Clozaril is being titrat ed -will use Ziprasidone p.r.n. Micromedex: 1)?Rapid titration in hospitalized patients: Day 1, 50 mg orally followed by 50 to 100 mg as needed every 6 hours (up to an additional 150 mg). Thereafter, may increase daily dosage in increments of 50 to 100 mg. Mean dosage on day 1 was 207 mg/day in patients with prior clozapine exposure and 59.7 mg without prior exposure. Mean titration over 5.44 days to a dosage of 260 mg/day, lead to a mean dosage at discharge of 322 mg/day ?Sarika HEBERT, Peggy? A, Wagner? NG, et al: Rapid clozapine titration in patients with treatment refractory schizophrenia. Psychiatr Q 2016; 87(2):315-322. I spent minutes with the patient and/or on the patient floor today, greater than?50% of which was spent counseling/coordinating care. Reason for contiued inpatient stay Substantial Risk for: harm to self and inability to function
[2021-08-11 16:45] LABS: Clozapine (Clozaril) 180 mcg/L; Norclozapine 156 mcg/L (25-400)
[2021-08-11 17:07] VITALS: BP 104/71; PULSE 91; RESP 16; TEMP 36.1
--- NOTE | 2021-08-12 16:32 | P.PNPSI_ITS ---
Subjective Subjective Date of Service: 08/12/21 Reason For Visit: Suicidal Interim History: Patient more calm today; no body facial movements. Patient has questions about court and [facility] which expert medical writer discussed. Patient says he is eating and drinking and will continue to do so. No plans or intention to self- harm on the unit. Mental Status Exam Mental Status Exam Narrative: Pt is alert to self, time, place but not situation; behavior is calm, sitting on bed w/out shirt; no flexing movements of his face/body; adequate eye contact; mood is alright and affect more calm; thought process is goal oriented, linear; thought content on court; remains preoccupied dealing with paranoid, persecutory delusions about being tortured by they. Intermittent SI as fulfillment of task assigned to him by persecutors; patient has intermittent plans and intent to self-harm on the unit; patient believes he receives messages through various avenues, having thoughts implanted in his head or communications given through media which he avoids. Denies [facility]. ?Patients insight and judgment are impaired Diagnostics Vital Signs (24Hr): Vital Signs - 24 hr 08/11/21 17:07 Temperature 97 F Pulse Rate 91 Respiratory Rate 16 Blood Pressure 104/71 Labs Results: 08/15/21 07:58 08/09/21 18:43 Labs: Laboratory Results - last 48 hr 08/08/21 08:08 Clozapine 180 Norclozapine 156 Medications Medications Current Medications Acetaminophen (Acetaminophen 325 Mg Tablet) 650 mg PO Q6H PRN PRN Reason: Pain, Mild (Pain Scale 1-3) Al Hydroxide/Mg Hydroxide (Magnesium Hydrox/Alum Hydrox 30 Ml Oral.Susp) 30 ml PO Q6H PRN PRN Reason: Heartburn/Nausea Calcium Carbonate (Calcium Carbonate 750 Mg Tab.Chew) 750 mg PO Q4H PRN PRN Reason: Indigestion Last Admin: 08/06/21 19:35 Dose: 750 mg Documented by: Diphenhydramine HCl (Diphenhydramine Hcl 25 Mg Tablet) 50 mg PO Q4H PRN PRN Reason: agitation Last Admin: 07/26/21 09:00 Dose: 50 mg Documented by: Hydroxyzine HCl (Hydroxyzine Hcl 25 Mg Tablet) 25 mg PO BEDTIME PRN PRN Reason: Anxiety Last Admin: 08/04/21 21:07 Dose: 25 mg Documented by: Lorazepam (Lorazepam 0.5 Mg Tablet) 0.5 mg PO BID FIDEL Last Admin: 08/12/21 09:40 Dose: Not Given Documented by: Lorazepam (Lorazepam 1 Mg Tablet) 2 mg PO TID PRN PRN Reason: severe anxiety or agitation Magnesium Hydroxide (Milk Of Magnesia 30 Ml Oral.Susp) 30 ml PO DAILY PRN PRN Reason: Constipation Nicotine Polacrilex (Nicotine Polacrilex 2 Mg Gum) 2 mg BUCCAL Q2H PRN PRN Reason: Nicotine Cravings Trazodone HCl (Trazodone Hcl 50 Mg Tablet) 50 mg PO BEDTIME PRN PRN Reason: Insomnia Ziprasidone (Ziprasidone 20 Mg Capsule) 20 mg PO TID PRN PRN Reason: agitation Allergies Allergies Allergy/AdvReac Type Severity Reaction Status Date / Time olanzapine [OLANZAPINE] Allergy Severe FACIAL Verified 04/06/21 10:20 SWELLING Assessment & Plan Assessment & Plan (1) Schizoaffective disorder: Status: Chronic Code(s): F25.9 - Schizoaffective disorder, unspecified Assessment and Plan: started meds few days ago - tolerating so far- maybe calmer due to it still pretty shut down (2) Starvation ketoacidosis: Status: Resolved Code(s): E87.2 - Acidosis Assessment and Plan: denies current plan for this (3) PTSD (post-traumatic stress disorder): Status: Suspected Code(s): F43.10 - Post-traumatic stress disorder, unspecified Assessment and Plan: Impression: Patient is a 35-year-old male with history of schizophrenia, paranoid type who presents for paranoid, persecutory delusions, in the face of going off medications, prompting pt to attempt suicide by starvation and water deprivation. While trying to starve himself to , and just days before this admission, patient also attempted to kill himself by overdosing on Tylenol; when this did not work he tried again at a higher dose. Pt now presents to [facility]5 from medical floor where he required fluid resuscitation,?electrolytes replenished and treatment for starvation ketoacidosis, hypernatremia and acute kidney injury.? Pt now medically cleared and transferred to psychiatric unit. ?Patient was recently discharged from the unit around 05/13/2021. HOspital course: Patient currently suffers from severe paranoid persecutory delusions that frequently direct him to harm himself in order to save his family from future torture.? Patient has no insight.? Currently refuses medications and remains on [place] [address]. he says he does not necessarily want to leave the hospital, nor does he want to stay but does not want to sign a CV worried that it will be unacceptable to his persecutors. -patient remains in severe mental anguish over what is the right thing to do, very worried about making the wrong decision which will aggravate his persecutors and therefor put his family in future jeopardy; patient eventually decided to sign a CV but then later signed a 3 day notice.? He agreed to take Clozaril but then was again ambivalent.? Patient remains willing to self-harm to the point of suicide based on paranoid delusions that he must do so in order to save his family from future torment. -over the weekend patient was screaming, out of control and required medication restraint 07/11 patient remains with joel paranoid, persecutory delusions, thoughts to starve himself to based on paranoid delusion, no insight and impaired judgment. -currently he is eating and drinking but only minimally 07/12 pt decided to take Clozaril 07/13:? Patient is tormented seems to have reached a boiling point and he agreed to take Clozaril and sign in 07/15- says he will try a new approach to his decision making; agrees to richard hua taking Clozaril.? Remains guarded, and with paranoid delusions 07/21 floridly psychotic with intense paranoid, persecutory delusions that are overwhelming patient into repeated unsafe thinking or behavior including suicide, and starvation and water deprivation.? Patient has no insight and does not believe that medications help at all; he goes back and forth about whether to take medications as he's very anxious about contradicting his persecutors whom he believes give him messages directing his behavior. 07/23 pt again decided to stop taking medications, a frequent decision emerging every few days as patient again feels that it's safer to listen to his persecutors (paranoid delusions) then it is to go against their edict and take medications. Over the past 2 weeks, only after lengthy discussions, would patient change his mind and go back to taking medications; however this reversion is not due to any moment of insight but rather a combination of emotional exhaustion and him trying to find a loophole in his persecutors edict to not take medications. -patient put in 3 day notice 07/24-07/28: sometimes withdrawn; sometimes agitated, yelling in anguished distress about being threatened by tormentors; intermittently taking medications 07/29 - rescinded 3 day notice -since then, he's agreed to take medications, though this is intermittent; taking medications however does not represent improved insight or judgment, but as patient explains, is only done because he has for the moment not concluded that They, his torementors, have specifically barred him from doing so. This makes medication management difficult since he is on Clozaril which has a narrow window for which one can safely start/stop this med. om -He continues to intermittently stop Eating and drinking in obedience to paranoid delusion with idea that he should either commit suicide or undergo some other torture; remains without insight; remains anguished. He volunteers that he has received direction on how to kill himself post discharge and he intermittently has plans to kill himself on the unit, though he has thus far been able to limit his actions towards this end. Patient believes he receives messages through various avenues, having thoughts implanted in his head or communications given through media or circumstance. Patient reports he wants to trust this expert medical writer and staff but is never sure whether or not expert medical writer/staff is part of a conspiracy to torture him. on 08/08: Patient exhibited bizarre, generating movements of primarily his upper torso; expert medical writer examined patient and this was not dystonia, akathisia and was not seizure activity but rather patient's own voluntary behavior done in obedience to direction from his imagined persecutor; pt later confirmed this. NMS ruled out -labs (afebrile, autonomic stable; LDH wnl; CPK elevated as expected). Clozapine induced myoclonus considered but again given patient's presentation and his own self reporting that these movements are guided by delusional thought, very unlikely. Patient told expert medical writer that since medications are being given to treat a mental illness, which he does not believe he has, he will no longer take medications -08/10required IM medication, chemical restraint for wild in unsafe behavior, hitting his head against the wall unable to be redirected / more calm; body movements not present; can advance to q5 and off 1:1 for now (discussed with staff who agree). Barrier to discharge:? Patient is floridly psychotic; he has no insight and currently suffers from paranoid, persecutory delusions, believing he needs to either kill himself or engage in behaviors that will result in , in order to fulfill his persecutors demands; if discharged before stable, patient will quickly decompensate and be at high risk for suicide; he requires locked unit, and likely a halfway admission, to resolve symptoms with medication management. [facility] considered: Customer Relations Coordinator reviewed case with Dr. Mcleod and other team members and it was discussed whether or not Dilshad needs a longer term hospitalization such as [facility]. Patient recently revealed that over the days/weeks prior to this admission, in addition to trying to starve/dehydrate himself to , he tried to kill himself 2x by Tylenol overdose, making expert medical writer more aware of the extent of his unsafe behavior. Patient remains without any insight at all. He is fully overwhelmed by persecutory delusions. At this point it is becoming increasing difficult for expert medical writer to imagine a scenario where Dilshad is safe outside of a longer term commitment where he is court ordered to take medications. For while he has indeed benefited from Clozapine (improved mood, relief from emotional anguish and reprieve from being contacted by persecutors [delusions]) his illness keeps him from attributing that benefit to medication; rather he maintains that medications are placebos and his relief is due to some other cause; and thus, on his own, patient's illness renders him unable to remain adherent with medications. However, if Dilshad had an extended hospital stay and remained on medications for an extended period of months, he may experience his relief from torture? as a product of medications and thus achieve enough insight to remain on medications as an outpatient. Customer Relations Coordinator will continue to discuss case with colleagues, but is coming to the conclusion that patient requires [facility] admission for his safety. PLAN: advance to 1:1 Bizarre body movements: resolved -patient's movements voluntary and done in obedience to delusion -EKG: sinus tachy -will discontinue clozapine since patient no longer wants to take it since it's being prescribed for a mental illness. involuntary commitment: -On CV; patient is refusing medications and does not believe he has a mental illness or that he needs to be on the unit to be treated for a mental illness. Will petition court for substituted judgment, involuntary commitment; -Team agrees that patient requires halfway admission and will apply to [facility] -DISCONTINUE Clozapine 200mg qhs;PT now refuses to take it -scheduled clonazepam 0.25 mg b.i.d. for anxiety while Clozaril is being titrated -will use Ziprasidone p.r.n. Micromedex: 1)?Rapid titration in hospitalized patients: Day 1, 50 mg orally followed by 50 to 100 mg as needed every 6 hours (up to an additional 150 mg). Thereafter, may increase daily dosage in increments of 50 to 100 mg. Mean dosage on day 1 was 207 mg/day in patients with prior clozapine exposure and 59.7 mg without prior exposure. Mean titration over 5.44 days to a dosage of 260 mg/day, lead to a mean dosage at discharge of 322 mg/day ?Sarika HEBERT, Peggy? A, Wagner? NG, et al: Rapid clozapine titration in patients with treatment refractory schizophrenia. Psychiatr Q 2016; 87(2):315-322. I spent minutes with the patient and/or on the patient floor today, greater than?50% of which was spent counseling/coordinating care. Reason for contiued inpatient stay Substantial Risk for: inability to function
[2021-08-12 19:20] VITALS: BP 114/74; PULSE 64; TEMP 36.7
--- NOTE | 2021-08-13 06:16 | P.PNPSI_ITS ---
Subjective Subjective Date of Service: 08/13/21 Reason For Visit: Suicidal Interim History: Asked to come off one-to-one 08/13/21: Pacing unit. Looks watchful/paranoid and at times hostile. For several Qs replied I dont want to talk about it . Odd mannerisms of banging his fists on his left knee thenleft room. Review of Systems Review of Systems Yes all other systems are reviewed and are negative Constitutional: Denies frequent falls Denies frequent falls Mental Status Exam Mental Status Exam Narrative: Pt is alert to self, time, place but not situation; behavior is mostly calm, lying under weighted blanket bizarre, with him intermittently making bizarre, flexing movements of his face, but much less so; limited to no eye contact; thought process is goal oriented; thought content is overwhelmed with paranoid, persecutory delusions about being tortured; intermittent SI as fulfillment of task assigned to him by persecutors; patient has plans on how to kill himself post discharge; patient has intermittent plans and intent to self- harm on the unit; patient believes he receives messages through various avenues, having thoughts implanted in his head or communications given through media which he avoids. Denies [facility]. ?Patients insight and judgment are impaired Patient Appearance: Disheveled Patient Orientation: Person, Place and Situation Level of Consciousness: Drowsy Patient Behavior: Guarded Mood Description: Apathetic Affect Description: Constricted Patient Cognition Impaired: No Ability to Follow Directions: Fair Speech Pattern: Clear Memory Description: Intact Diagnostics Vital Signs (24Hr): Vital Signs - 24 hr 08/12/21 19:20 Temperature 98.1 F Pulse Rate 64 Blood Pressure 114/74 Labs Results: 08/09/21 18:43 08/09/21 18:43 Labs: Laboratory Results - last 48 hr 08/08/21 08:08 Clozapine 180 Norclozapine 156 Medications Medications Current Medications Acetaminophen (Acetaminophen 325 Mg Tablet) 650 mg PO Q6H PRN PRN Reason: Pain, Mild (Pain Scale 1-3) Al Hydroxide/Mg Hydroxide (Magnesium Hydrox/Alum Hydrox 30 Ml Oral.Susp) 30 ml PO Q6H PRN PRN Reason: Heartburn/Nausea Calcium Carbonate (Calcium Carbonate 750 Mg Tab.Chew) 750 mg PO Q4H PRN PRN Reason: Indigestion Last Admin: 08/06/21 19:35 Dose: 750 mg Documented by: Diphenhydramine HCl (Diphenhydramine Hcl 25 Mg Tablet) 50 mg PO Q4H PRN PRN Reason: agitation Last Admin: 07/26/21 09:00 Dose: 50 mg Documented by: Hydroxyzine HCl (Hydroxyzine Hcl 25 Mg Tablet) 25 mg PO BEDTIME PRN PRN Reason: Anxiety Last Admin: 08/04/21 21:07 Dose: 25 mg Documented by: Lorazepam (Lorazepam 0.5 Mg Tablet) 0.5 mg PO BID FIDEL Last Admin: 08/12/21 20:32 Dose: Not Given Documented by: Lorazepam (Lorazepam 1 Mg Tablet) 2 mg PO TID PRN PRN Reason: severe anxiety or agitation Magnesium Hydroxide (Milk Of Magnesia 30 Ml Oral.Susp) 30 ml PO DAILY PRN PRN Reason: Constipation Nicotine Polacrilex (Nicotine Polacrilex 2 Mg Gum) 2 mg BUCCAL Q2H PRN PRN Reason: Nicotine Cravings Trazodone HCl (Trazodone Hcl 50 Mg Tablet) 50 mg PO BEDTIME PRN PRN Reason: Insomnia Ziprasidone (Ziprasidone 20 Mg Capsule) 20 mg PO TID PRN PRN Reason: agitation Allergies Allergies Allergy/AdvReac Type Severity Reaction Status Date / Time olanzapine [OLANZAPINE] Allergy Severe FACIAL Verified 04/06/21 10:20 SWELLING Assessment & Plan Assessment & Plan (1) Schizoaffective disorder: Status: Chronic Code(s): F25.9 - Schizoaffective disorder, unspecified Assessment and Plan: started meds few days ago - tolerating so far- maybe calmer due to it still pretty shut down (2) Starvation ketoacidosis: Status: Resolved Code(s): E87.2 - Acidosis Assessment and Plan: denies current plan for this (3) PTSD (post-traumatic stress disorder): Status: Suspected Code(s): F43.10 - Post-traumatic stress disorder, unspecified Assessment and Plan: Impression: Patient is a 35-year-old male with history of schizophrenia, paranoid type who presents for paranoid, persecutory delusions, in the face of going off medi cations, prompting pt to attempt suicide by starvation and water deprivation. While trying to starve himself to , and just days before this admission, patient also attempted to kill himself by overdosing on Tylenol; when this did not work he tried again at a higher dose. Pt now presents to from medical floor where he required fluid resuscitation,?electrolytes replenished and treatment for starvation ketoacidosis, hypernatremia and acute kidney injury.? Pt now medically cleared and transferred to psychiatric unit. ?Patient was recently discharged from the unit around 05/13/2021. HOspital course: Patient currently suffers from severe paranoid persecutory delusions that frequently direct him to harm himself in order to save his family from future torture.? Patient has no insight.? Currently refuses medications and remains on Section 12 B. he says he does not necessarily want to leave the hospital, nor does he want to stay but does not want to sign a CV worried that it will be unacceptable to his persecutors. -patient remains in severe mental anguish over what is the right thing to do, very worried about making the wrong decision which will aggravate his persecutors and therefor put his family in future jeopardy; patient eventually decided to sign a CV but then later signed a 3 day notice.? He agreed to take Clozaril but then was again ambivalent.? Patient remains willing to self-harm to the point of suicide based on paranoid delusions that he must do so in order to save his family from future torment. -over the weekend patient was screaming, out of control and required medication restraint 07/11 patient remains with joel paranoid, persecutory delusions, thoughts to starve himself to based on paranoid delusion, no insight and impaired judgment. -currently he is eating and drinking but only minimally 07/12 pt decided to take Clozaril 07/13:? Patient is tormented seems to have reached a boiling point and he agreed to take Clozaril and sign in 07/15- says he will try a new approach to his decision making; agrees to continue taking Clozaril.? Remains guarded, and with paranoid delusions 07/21 floridly psychotic with intense paranoid, persecutory delusions that are overwhelming patient into repeated unsafe thinking or behavior including suicide, and starvation and water deprivation.? Patient has no insight and does not believe that medications help at all; he goes back and forth about whether to take medications as he's very anxious about contradicting his persecutors whom he believes give him messages directing his behavior. 07/23 pt again decided to stop taking medications, a frequent decision emerging every few days as patient again feels that it's safer to listen to his persecutors (paranoid delusions) then it is to go against their edict and take medications. Over the past 2 weeks, only after lengthy discussions, would patient change his mind and go back to taking medications; however this reversion is not due to any moment of insight but rather a combination of emotional exhaustion and him trying to find a loophole in his persecutors edict to not take medications. -patient put in 3 day notice 07/24-07/28: sometimes withdrawn; sometimes agitated, yelling in anguished distress about being threatened by tormentors; intermittently taking medications 07/29 - rescinded 3 day notice -since then, he's agreed to take medications, though this is intermittent; taking medications however does not represent improved insight or judgment, but as patient explains, is only done because he has for the moment not concluded that They, his torementors, have specifically barred him from doing so. This makes medication management difficult since he is on Clozaril which has a narrow window for which one can safely start/stop this med. om -He continues to intermittently stop Eating and drinking in obedience to paranoid delusion with idea that he should either commit suicide or undergo some other torture; remains without insight; remains anguished. He volunteers that he has received direction on how to kill himself post discharge and he intermittently has plans to kill himself on the unit, though he has thus far been able to limit his actions towards this end. Patient believes he receives messages through various avenues, having thoughts implanted in his head or communications given through media or circumstance. Patient reports he wants to trust this senior writer and staff but is never sure whether or not senior writer/staff is part of a conspiracy to torture him. on 08/08: Patient exhibited bizarre, generating movements of primarily his upper torso; senior writer examined patient and this was not dystonia, akathisia and was not seizure activity but rather patient's own voluntary behavior done in obedience to direction from his imagined persecutor; pt later confirmed this. Patient told senior writer that since medications are being given to treat a mental illness, which he does not believe he has, he will no longer take medications Barrier to discharge:? Patient is floridly psychotic; he has no insight and currently suffers from paranoid, persecutory delusions, believing he needs to either kill himself or engage in behaviors that will result in , in order to fulfill his persecutors demands; if discharged before stable, patient will quickly decompensate and be at high risk for suicide; he requires locked unit, and likely a assistant terminal manager admission, to resolve symptoms with medication management. [facility] considered: Industrial Maintenance Tech reviewed case with Dr. Mcleod and other team members and it was discussed whether or not Dilshad needs a longer term hospitalization such as [facility]. Patient recently revealed that over the days/weeks prior to this admission, in addition to trying to starve/dehydrate himself to , he tried to kill himself 2x by Tylenol overdose, making senior writer more aware of the extent of his unsafe behavior. Patient remains without any insight at all. He is fully overwhelmed by persecutory delusions. At this point it is becoming increasing difficult for senior writer to imagine a scenario where Dilshad is safe outside of a longer term commitment where he is court ordered to take medications. For while he has indeed benefited from Clozapine (improved mood, relief from emotional anguish and reprieve from being contacted by persecutors [delusions]) his illness keeps him from attributing that benefit to medication; rather he maintains that medications are placebos and his relief is due to some other cause; and thus, on his own, patient's illness renders him unable to remain adherent with medications. However, if Dilshad had an extended hospital stay and remained on medications for an extended period of months, he may experience his relief from torture? as a product of medications and thus achieve enough insight to remain on medications as an outpatient. Industrial Maintenance Tech will continue to discuss case with colleagues, but is coming to the conclusion that patient requires [facility] admission for his safety. PLAN: advance to 1:1 Bizarre body movements: -patient's movements present as voluntary and very unlikely to be medication related. Clozapine induced myoclonus is a possibility but again given patient's presentation and his own self reporting that these movements are guided by delusional thought, it again is very unlikely. NMS is a rule out but again very unlikely given that patient is autonomically stable, afebrile and able to be/present without any muscle rigidity. While WBC is mildly elevated, this can certainly be due to patient's intense emotional stress. -Will order labs to rule out an NMS; senior writer expects CPK to be elevated given his intense muscular work out. -EKG ordered and looks to be within normal limits however it has yet to be read by a personal vehicle advisor which is pending -tachycardic but otherwise vitals within normal limits. -will discontinue clozapine since patient no longer wants to take it involuntary commitment: -On CV; patient is refusing medications and does not believe he has a mental illness or that he needs to be on the unit to be treated for a mental illness. Will petition court for substituted judgment, involuntary commitment; -Team agrees that patient requires detention admission and will appy to [facility] -DISCONTINUE Clozapine 200mg qhs;PT now refuses to take it -scheduled clonazepam 0.25 mg b.i.d. for anxiety while Clozaril is being titrated -will use Ziprasidone p.r.n. Micromedex: 1)?Rapid titration in hospitalized patients: Day 1, 50 mg orally followed by 50 to 100 mg as needed every 6 hours (up to an additional 150 mg). Thereafter, may increase daily dosage in increments of 50 to 100 mg. Mean dosage on day 1 was 207 mg/day in patients with prior clozapine exposure and 59.7 mg without prior exposure. Mean titration over 5.44 days to a dosage of 260 mg/day, lead to a mean dosage at discharge of 322 mg/day ?Sarika HEBERT, Peggy? A, Wagner? NG, et al: Rapid clozapine titration in patients with treatment refractory schizophrenia. Psychiatr Q 2016; 87(2):315-322. I spent minutes with the patient and/or on the patient floor today, greater than?50% of which was spent counseling/coordinating care. Reason for contiued inpatient stay Substantial Risk for: harm to self
[2021-08-13 16:45] VITALS: BP 104/68; PULSE 64; TEMP 17.7
[2021-08-14 06:00] VITALS: BP 117/69; PULSE 64; RESP 18; TEMP 36.7; O2SAT 98
--- NOTE | 2021-08-14 15:23 | P.PNPSI_ITS ---
Subjective Subjective Date of Service: 08/14/21 Reason For Visit: Suicidal Interim History: Asked to come off one-to-one 08/13/21: Pacing unit. Looks watchful/paranoid and at times hostile. For several Qs replied I dont want to talk about it . Odd mannerisms of banging his fists on his left knee thenleft room. 08/14/21: Remains paranoid. Refuses meds. They are taking me to court for that Review of Systems Review of Systems Yes all other systems are reviewed and are negative Constitutional: Denies frequent falls Denies frequent falls Mental Status Exam Mental Status Exam Narrative: Pt is alert to self, time, place but not situation; behavior is mostly calm, lying under weighted blanket bizarre, with him intermittently making bizarre, flexing movements of his face, but much less so; limited to no eye contact; thought process is goal oriented; thought content is overwhelmed with paranoid, persecutory delusions about being tortured; intermittent SI as fulfillment of task assigned to him by persecutors; patient has plans on how to kill himself post discharge; patient has intermittent plans and intent to self- harm on the unit; patient believes he receives messages through various avenues, having thoughts implanted in his head or communications given through media which he avoids. Denies [facility]. ?Patients insight and judgment are impaired Patient Appearance: Disheveled Patient Orientation: Person, Place and Situation Level of Consciousness: Drowsy Patient Behavior: Guarded Mood Description: Apathetic Affect Description: Constricted Patient Cognition Impaired: No Ability to Follow Directions: Fair Speech Pattern: Clear Memory Description: Intact Diagnostics Vital Signs (24Hr): Vital Signs - 24 hr 08/13/21 16:45 08/14/21 06:00 Temperature 64 F L 98.1 F Pulse Rate 64 64 Respiratory Rate 18 Blood Pressure 104/68 117/69 Pulse Oximetry 98 Labs Results: 08/09/21 18:43 08/09/21 18:43 Medications Medications Current Medications Acetaminophen (Acetaminophen 325 Mg Tablet) 650 mg PO Q6H PRN PRN Reason: Pain, Mild (Pain Scale 1-3) Al Hydroxide/Mg Hydroxide (Magnesium Hydrox/Alum Hydrox 30 Ml Oral.Susp) 30 ml PO Q6H PRN PRN Reason: Heartburn/Nausea Calcium Carbonate (Calcium Carbonate 750 Mg Tab.Chew) 750 mg PO Q4H PRN PRN Reason: Indigestion Last Admin: 08/06/21 19:35 Dose: 750 mg Documented by: Diphenhydramine HCl (Diphenhydramine Hcl 25 Mg Tablet) 50 mg PO Q4H PRN PRN Reason: agitation Last Admin: 07/26/21 09:00 Dose: 50 mg Documented by: Hydroxyzine HCl (Hydroxyzine Hcl 25 Mg Tablet) 25 mg PO BEDTIME PRN PRN Reason: Anxiety Last Admin: 08/04/21 21:07 Dose: 25 mg Documented by: Lorazepam (Lorazepam 0.5 Mg Tablet) 0.5 mg PO BID FIDLE Last Admin: 08/14/21 10:47 Dose: Not Given Documented by: Lorazepam (Lorazepam 1 Mg Tablet) 2 mg PO TID PRN PRN Reason: severe anxiety or agitation Magnesium Hydroxide (Milk Of Magnesia 30 Ml Oral.Susp) 30 ml PO DAILY PRN PRN Reason: Constipation Nicotine Polacrilex (Nicotine Polacrilex 2 Mg Gum) 2 mg BUCCAL Q2H PRN PRN Reason: Nicotine Cravings Trazodone HCl (Trazodone Hcl 50 Mg Tablet) 50 mg PO BEDTIME PRN PRN Reason: Insomnia Ziprasidone (Ziprasidone 20 Mg Capsule) 20 mg PO TID PRN PRN Reason: agitation Allergies Allergies Allergy/AdvReac Type Severity Reaction Status Date / Time olanzapine [OLANZAPINE] Allergy Severe FACIAL Verified 04/06/21 10:20 SWELLING Assessment & Plan Assessment & Plan (1) Schizoaffective disorder: Status: Chronic Code(s): F25.9 - Schizoaffective disorder, unspecified Assessment and Plan: started meds few days ago - tolerating so far- maybe calmer due to it still pretty shut down (2) Starvation ketoacidosis: Status: Resolved Code(s): E87.2 - Acidosis Assessment and Plan: denies current plan for this (3) PTSD (post-traumatic stress disorder): Status: Suspected Code(s): F43.10 - Post-traumatic stress disorder, unspecified Assessment and Plan: Impression: Patient is a 35-year-old male with history of schizophrenia, paranoid type who presents for paranoid, persecutory delusions, in the face of going off medicatio ns, prompting pt to attempt suicide by starvation and water deprivation. While trying to starve himself to , and just days before this admission, patient also attempted to kill himself by overdosing on Tylenol; when this did not work he tried again at a higher dose. Pt now presents to [facility] from medical floor where he required fluid resuscitation,?electrolytes replenished and treatment for star vation ketoacidosis, hypernatremia and acute kidney injury.? Pt now medically cleared and transferred to psychiatric unit. ?Patient was recently discharged from the unit around 05/13/2021. HOspital course: Patient currently suffers from severe paranoid persecutory delusions that frequently direct him to harm himself in order to save his family from future torture.? Patient has no insight.? Currently refuses medications and remains on [place] 12 B. he says he does not necessarily want to leave the hospital, nor does he want to stay but does not want to sign a CV worried that it will be unacceptable to his persecutors. -patient remains in severe mental anguish over what is the right thing to do, very worried about making the wrong decision which will aggravate his pe rsecutors and therefor put his family in future jeopardy; patient eventually decided to sign a CV but then later signed a 3 day notice.? He agreed to take Clozaril but then was again ambivalent.? Patient remains willing to self-harm to the point of suicide based on paranoid delusions that he must do so in order to save his family from future torment. -over the weekend patient was screaming, out of control and required medication restraint 07/11 patient remains with joel paranoid, persecutory delusions, thoughts to starve himself to based on paranoid delusion, no insight and impaired judg ment. -currently he is eating and drinking but only minimally 07/12 pt decided to take Clozaril 07/13:? Patient is tormented seems to have reached a boiling point and he agreed to take Clozaril and sign in 07/15- says he will try a new approach to his decision making; agrees to continue taking Clozaril.? Remains guarded, and with paranoid delusions 07/21 floridly psychotic with intense paranoid, persecutory delusions that are overwhelming patient into repeated unsafe thinking or behavior including suicide, and starvation and water deprivation.? Patient has no insight and does not believe that medications help at all; he goes back and forth about whether to take medications as he's very anxious about contradicting his persecutors whom he believes give him messages directing his behavior. 07/23 pt again decided to stop taking medications, a frequent decision emerging every few days as patient again feels that it's safer to listen to his persecutors (paranoid delusions) then it is to go against their edict and take medications. Over the past 2 weeks, only after lengthy discussions, would patient change his mind and go back to taking medications; however this reversion is not due to any moment of insight but rather a combination of emotional exhaustion and him trying to find a loophole in his persecutors edict to not take medications. -patient put in 3 day notice 07/24-07/28: sometimes withdrawn; sometimes agitated, yelling in anguished distress about being threatened by tormentors; intermittently taking medications 07/29 - rescinded 3 day notice -since then, he's agreed to take medications, though this is intermittent; taking medications however does not represent improved insight or judgment, but as patient explains, is only done because he has for the moment not concluded that They, his torementors, have specifically barred him from doing so. This makes medication management difficult since he is on Clozaril which has a narrow window for which one can safely start/stop this med. om -He continues to intermittently stop Eating and drinking in obedience to paranoid delusion with idea that he should either commit suicide or undergo some other torture; remains without insight; remains anguished. He volunteers that he has received direction on how to kill himself post discharge and he intermittently has plans to kill himself on the unit, though he has thus far been able to limit his actions towards this end. Patient believes he receives messages through various avenues, having thoughts implanted in his head or communications given through media or circumstance. Patient reports he wants to trust this web content writer and staff but is never sure whether or not web content writer/staff is part of a conspiracy to torture him. on 08/08: Patient exhibited bizarre, generating movements of primarily his upper torso; web content writer examined patient and this was not dystonia, akathisia and was not seizure activity but rather patient's own voluntary behavior done in obedience to direction from his imagined persecutor; pt later confirmed this. Patient told web content writer that since medications are being given to treat a mental illness, which he does not believe he has, he will no longer take medications Barrier to discharge:? Patient is floridly psychotic; he has no insight and currently suffers from paranoid, persecutory delusions, believing he needs to either kill himself or engage in behaviors that will result in , in order to fulfill his persecutors demands; if discharged before stable, patient will quickly decompensate and be at high risk for suicide; he requires locked unit, and likely a package dye stand loader admission, to resolve symptoms with medication management. [facility] considered: County Coroner reviewed case with Dr. Mcleod and other team members and it was discussed whether or not Dilshad needs a longer term hospitalization such as [facility]. Patient recently revealed that over the days/weeks prior to this admission, in addition to trying to starve/dehydrate himself to , he tried to kill himself 2x by Tylenol overdose, making web content writer more aware of the extent of his unsafe behavior. Patient remains without any insight at all. He is fully overwhelmed by persecutory delusions. At this point it is becoming increasing difficult for web content writer to imagine a scenario where Dilshad is safe outside of a longer term commitment where he is court ordered to take medications. For while he has indeed benefited from Clozapine (improved mood, relief from emotional anguish and reprieve from being contacted by persecutors [delusions]) his illness keeps him from attributing that benefit to medication; rather he maintains that medications are placebos and his relief is due to some other cause; and thus, on his own, patient's illness renders him unable to remain adherent with medications. However, if Dilshad had an extended hospital stay and remained on medications for an extended period of months, he may experience his relief from torture? as a product of medications and thus achieve enough insight to remain on medications as an outpatient. County Coroner will continue to discuss case with colleagues, but is coming to the conclusion that patient requires [facility] admission for his safety. PLAN: advance to 1:1 Bizarre body movements: -patient's movements present as voluntary and very unlikely to be medication related. Clozapine induced myoclonus is a possibility but again given patient's presentation and his own self reporting that these movements are guided by delusional thought, it again is very unlikely. NMS is a rule out but again very unlikely given that patient is autonomically stable, afebrile and able to be/present without any muscle rigidity. While WBC is mildly elevated, this can certainly be due to patient's intense emotional stress. -Will order labs to rule out an NMS; web content writer expects CPK to be elevated given his intense muscular work out. -EKG ordered and looks to be within normal limits however it has yet to be read by a medical imaging director which is pending -tachycardic but otherwise vitals within normal limits. -will discontinue clozapine since patient no longer wants to take it involuntary commitment: -On CV; patient is refusing medications and does not believe he has a mental illness or that he needs to be on the unit to be treated for a mental illness. Will petition court for substituted judgment, involuntary commitment; -Team agrees that patient requires package dye stand loader admission and will appy to [facility] -DISCONTINUE Clozapine 200mg qhs;PT now refuses to take it -scheduled clonazepam 0.25 mg b.i.d. for anxiety while Clozaril is being titrated -will use Ziprasidone p.r.n. Micromedex: 1)?Rapid titration in hospitalized patients: Day 1, 50 mg orally followed by 50 to 100 mg as needed every 6 hours (up to an additional 150 mg). Thereafter, may increase daily dosage in increments of 50 to 100 mg. Mean dosage on day 1 was 207 mg/day in patients with prior clozapine exposure and 59.7 mg without prior exposure. Mean titration over 5.44 days to a dosage of 260 mg/day, lead to a mean dosage at discharge of 322 mg/day ?Poyraz CA, Peggy? A, Sag[place]? NG, et al: Rapid clozapine titration in patients with treatment refractory schizophrenia. Psychiatr Q 2016; 87(2):315-322. I spent minutes with the patient and/or on the patient floor today, greater than?50% of which was spent counseling/coordinating care. Reason for contiued inpatient stay Substantial Risk for: rapid decompensation
[2021-08-14 17:56] VITALS: BP 114/79; PULSE 80; RESP 18; TEMP 36.9; O2SAT 97
[2021-08-15 06:00] VITALS: BP 99/69; PULSE 98; RESP 18; TEMP 36.6; O2SAT 96
[2021-08-15 08:43] LABS: MANUAL DIFF FLAG NO
[2021-08-15 08:47] LABS: Basophils Absolute Auto 0.1 X10*3/uL (0.0-0.2); Basophils Percent Auto 0.7 % (0-2); Eosinophils Absolute Auto 0.1 X10*3/uL (0.0-0.4); Eosinophils Percent Auto 1.3 % (0-4); Hematocrit 46.6 % (42.0-52.0); Hemoglobin 15.7 g/dl (14.0-18.0); Imm Gran Abs Auto 0.03 X10*3/uL (0.00-0.03); Imm Gran Pct Auto 0.3 % (0.0-0.4); Lymphocytes Absolute Auto 1.9 X10*3/uL (1.2-4.9); Lymphocytes Percent Auto 21.5 % (20-40); Mean Corpuscular HGB Conc 33.7 g/dl (31.0-36.0); Mean Corpuscular Hemoglobin 30.1 pg (27.0-33.0); Mean Corpuscular Volume 89.4 fL (80.0-98.0); Mean Platelet Volume 10.2 fL (9.4-12.4); Monocytes Absolute Auto 0.8 X10*3/uL (0.1-1.2); Monocytes Percent Auto 9.3 % (2-11); Neutrophils Percent Auto 66.9 % (45-73); Platelet Count 310 X10*3/uL (160-400); Red Blood Count 5.21 X10*6/uL (4.60-5.80); Red Cell Distribution Width 13.3 % (11.0-16.0)
--- NOTE | 2021-08-15 09:33 | HO.PSYCHPN ---
Subjective Subjective Date of Service: 08/15/21 Reason For Visit: Suicidal Interim History: Patient clean shaven; patient in the hallway Patient said he does not want to talk about anything with this communications writer given that court is tomorrow. He says that he is able to keep himself safe on the unit and will not engage in any self-harming activities. Mental Status Exam Mental Status Exam Narrative: Pt is alert to self, time, place but not situation; behavior is calm, pacing hallways; adequate eye contact; mood is ok and affect is constricted; thought process is goal oriented, linear; thought content is on court; otherwise, perseverating on paranoid, persecutory delusions about being tortured; intermittent SI as fulfillment of task assigned to him by persecutors; patient believes he receives messages through various avenues, having thoughts implanted in his head or communications given through media which he avoids. Denies [facility]. ?Patients insight and judgment are impaired Diagnostics Vital Signs (24Hr): Vital Signs - 24 hr 08/14/21 17:56 08/15/21 06:00 Temperature 98.4 F 97.9 F Pulse Rate 80 98 Respiratory Rate 18 18 Blood Pressure 114/79 99/69 Pulse Oximetry 97 96 Labs Results: 08/15/21 07:58 08/09/21 18:43 Labs: Laboratory Results - last 48 hr 08/15/21 07:58 WBC 9.0 RBC 5.21 Hgb 15.7 Hct 46.6 MCV 89.4 MCH 30.1 MCHC 33.7 RDW 13.3 Plt Count 310 D MPV 10.2 Immature Gran % (Auto) 0.3 Neut % (Auto) 66.9 Lymph % (Auto) 21.5 [place] % (Auto) 9.3 Eos % (Auto) 1.3 Baso % (Auto) 0.7 Lymph # (Auto) 1.9 [place] # (Auto) 0.8 Eos # (Auto) 0.1 Baso # (Auto) 0.1 Abs Immat Gran (auto) 0.03 Absolute Neuts (auto) 6.0 Absolute Nucleated RBC 0.000 Nucleated RBC % (auto) 0.0 Medications Medications Current Medications Acetaminophen (Acetaminophen 325 Mg Tablet) 650 mg PO Q6H PRN PRN Reason: Pain, Mild (Pain Scale 1-3) Al Hydroxide/Mg Hydroxide (Magnesium Hydrox/Alum Hydrox 30 Ml Oral.Susp) 30 ml PO Q6H PRN PRN Reason: Heartburn/Nausea Calcium Carbonate (Calcium Carbonate 750 Mg Tab.Chew) 750 mg PO Q4H PRN PRN Reason: Indigestion Last Admin: 08/06/21 19:35 Dose: 750 mg Documented by: Diphenhydramine HCl (Diphenhydramine Hcl 25 Mg Tablet) 50 mg PO Q4H PRN PRN Reason: agitation Last Admin: 07/26/21 09:00 Dose: 50 mg Documented by: Hydroxyzine HCl (Hydroxyzine Hcl 25 Mg Tablet) 25 mg PO BEDTIME PRN PRN Reason: Anxiety Last Admin: 08/04/21 21:07 Dose: 25 mg Documented by: Magnesium Hydroxide (Milk Of Magnesia 30 Ml Oral.Susp) 30 ml PO DAILY PRN PRN Reason: Constipation Nicotine Polacrilex (Nicotine Polacrilex 2 Mg Gum) 2 mg BUCCAL Q2H PRN PRN Reason: Nicotine Cravings Trazodone HCl (Trazodone Hcl 50 Mg Tablet) 50 mg PO BEDTIME PRN PRN Reason: Insomnia Ziprasidone (Ziprasidone 20 Mg Capsule) 20 mg PO TID PRN PRN Reason: agitation Allergies Allergies Allergy/AdvReac Type Severity Reaction Status Date / Time olanzapine [OLANZAPINE] Allergy Severe FACIAL Verified 04/06/21 10:20 SWELLING Assessment & Plan Assessment & Plan (1) Schizoaffective disorder: Status: Chronic Code(s): F25.9 - Schizoaffective disorder, unspecified Assessment and Plan: started meds few days ago - tolerating so far- maybe calmer due to it still pretty shut down (2) Starvation ketoacidosis: Status: Resolved Code(s): E87.2 - Acidosis Assessment and Plan: denies current plan for this (3) PTSD (post-traumatic stress disorder): Status: Suspected Code(s): F43.10 - Post-traumatic stress disorder, unspecified Assessment and Plan: Impression: Patient is a 35-year-old male with history of schizophrenia, paranoid type who presents for paranoid, persecutory delusions, in the face of going off medications, prompting pt to attempt suicide by starvation and water deprivation. While trying to starve himself to , and just days before this admission, patient also attempted to kill himself by overdosing on Tylenol; when this did not work he tried again at a higher dose. Pt now presents to from medical floor where he required fluid resuscitation,?electrolytes replenished and treatment for starvation ketoacidosis, hypernatremia and acute kidney injury.? Pt now medically cleared and transferred to psychiatric unit. ?Patient was recently discharged from the unit around 05/13/2021. HOspital course: Patient currently suffers from severe paranoid persecutory delusions that frequently direct him to harm himself in order to save his family from future torture.? Patient has no insight.? Currently refuses medications and remains on [place] 12 [address]. he says he does not necessarily want to leave the hospital, nor does he want to stay but does not want to sign a CV worried that it will be unacceptable to his persecutors. -patient remains in severe mental anguish over what is the right thing to do, very worried about making the wrong decision which will aggravate his persecutors and therefor put his family in future jeopardy; patient eventually decided to sign a CV but then later signed a 3 day notice.? He agreed to take Clozaril but then was again ambivalent.? Patient remains willing to self-harm to the point of suicide based on paranoid delusions that he must do so in order to save his family from future torment. -over the weekend patient was screaming, out of control and required medication restraint 07/11 patient remains with joel paranoid, persecutory delusions, thoughts to starve himself to based on paranoid delusion, no insight and impaired judgment. -currently he is eating and drinking but only minimally 07/12 pt decided to take Clozaril 07/13:? Patient is tormented seems to have reached a boiling point and he agreed to take Clozaril and sign in 07/15- says he will try a new approach to his decision making; agrees to continue taking Clozaril.? Remains guarded, and with paranoid delusions 07/21 floridly psychotic with intense paranoid, persecutory delusions that are overwhelming patient into repeated unsafe thinking or behavior including suicide, and starvation and water deprivation.? Patient has no insight and does not believe that medications help at all; he goes back and forth about whether to take medications as he's very anxious about contradicting his persecutors whom he believes give him messages directing his behavior. 07/23 pt again decided to stop taking medications, a frequent decision emerging every few days as patient again feels that it's safer to listen to his persecutors (paranoid delusions) then it is to go against their edict and take medications. Over the past 2 weeks, only after lengthy discussions, would patient change his mind and go back to taking medications; however this reversion is not due to any moment of insight but rather a combination of emotional exhaustion and him trying to find a loophole in his persecutors edict to not take medications. -patient put in 3 day notice 07/24-07/28: sometimes withdrawn; sometimes agitated, yelling in anguished distress about being threatened by tormentors; intermittently taking medications 07/29 - rescinded 3 day notice -since then, he's agreed to take medications, though this is intermittent; taking medications however does not represent improved insight or judgment, but as patient explains, is only done because he has for the moment not concluded that They, his torementors, have specifically barred him from doing so. This makes medication management difficult since he is on Clozaril which has a narrow window for which one can safely start/stop this med. om -He continues to intermittently stop Eating and drinking in obedience to paranoid delusion with idea that he should either commit suicide or undergo some other torture; remains without insight; remains anguished. He volunteers that he has received direction on how to kill himself post discharge and he intermittently has plans to kill himself on the unit, though he has thus far been able to limit his actions towards this end. Patient believes he receives messages through various avenues, having thoughts implanted in his head or communications given through media or circumstance. Patient reports he wants to trust this communications writer and staff but is never sure whether or not communications writer/staff is part of a conspiracy to torture him. on 08/08: Patient exhibited bizarre, generating movements of primarily his upper torso; communications writer examined patient and this was not dystonia, akathisia and was not seizure activity but rather patient's own voluntary behavior done in obedience to direction from his imagined persecutor; pt later confirmed this. NMS ruled out -labs (afebrile, autonomic stable; LDH wnl; CPK elevated as expected). Clozapine induced myoclonus considered but again given patient's presentation and his own self reporting that these movements are guided by delusional thought, very unlikely. Patient told communications writer that since medications are being given to treat a mental illness, which he does not believe he has, he will no longer take medications -08/10required IM medication, chemical restraint for wild in unsafe behavior, hitting his head against the wall unable to be redirected 08/11 more calm; body movements not present; can advance to q5 and off 1:1 for now (discussed with staff who agree). Barrier to discharge:? Patient is floridly psychotic; he has no insight and currently suffers from paranoid, persecutory delusions, believing he needs to either kill himself or engage in behaviors that will result in , in order to fulfill his persecutors demands; if discharged before stable, patient will quickly decompensate and be at high risk for suicide; he requires locked unit, and likely a terminal operator admission, to resolve symptoms with medication management.?BRENDA considered:? Supervisor [employer] reviewed case with Dr. Mcleod and other team members and it was discussed whether or not Dilshad needs a longer term hospitalization such as [facility]. Patient recently revealed that over the days/weeks prior to this admission, in addition to trying to starve/dehydrate himself to , he tried to kill himself 2x by Tylenol overdose, making communications writer more aware of the extent of his unsafe behavior. Patient remains without any insight at all. He is fully overwhelmed by persecutory delusions. At this point it is becoming increasing difficult for communications writer to imagine a scenario where Dilshad is safe outside of a longer term commitment where he is court ordered to take medications. For while he has indeed benefited from Clozapine (improved mood, relief from emotional anguish and reprieve from being contacted by persecutors [delusions]) his illness keeps him from attributing that benefit to medication; rather he maintains that medications are placebos and his relief is due to some other cause; and thus, on his own, patient's illness renders him unable to remain adherent with medications. However, if Dilshad had an extended hospital stay and remained on medications for an extended period of months, he may experience his relief from torture? as a product of medications and thus achieve enough insight to remain on medications as an outpatient. Supervisor [employer] will continue to discuss case with colleagues, but is coming to the conclusion that patient requires [facility] admission for his safety. PLAN: advance to 1:1 Bizarre body movements: resolved? -patient's movements voluntary and done in obedience to delusion? -EKG: sinus tachy -will discontinue clozapine since patient no longer wants to take it since it's being prescribed for a mental illness. ?involuntary commitment: -On CV; patient is refusing medications and does not believe he has a mental illness or that he needs to be on the unit to be treated for a mental illness.? Will petition court for substituted judgment, involuntary commitment; -Team agrees that patient requires terminal operator admission and will apply to [facility] -DISCONTINUE Clozapine 200mg qhs;PT now refuses to take it -scheduled clonazepam 0.25 mg b.i.d. for anxiety while Clozaril is being titrated Micromedex: 1)?Rapid titration in hospitalized patients: Day 1, 50 mg orally followed by 50 to 100 mg as needed every 6 hours (up to an additional 150 mg). Thereafter, may increase daily dosage in increments of 50 to 100 mg. Mean dosage on day 1 was 207 mg/day in patients with prior clozapine exposure and 59.7 mg without prior exposure. Mean titration over 5.44 days to a dosage of 260 mg/day, lead to a mean dosage at discharge of 322 mg/day ?Poyraz CA, Peggy? A, [place]? NG, et al: Rapid clozapine titration in patients with treatment refractory schizophrenia. Psychiatr Q 2016; 87(2):315-322. I spent minutes with the patient and/or on the patient floor today, greater than?50% of which was spent counseling/coordinating care. Reason for contiued inpatient stay Substantial Risk for: harm to self
[2021-08-15 18:50] VITALS: BP 133/67; PULSE 99; TEMP 37.1
[2021-08-16 06:00] VITALS: BP 127/89; PULSE 117; RESP 18; TEMP 36.4; O2SAT 95
--- NOTE | 2021-08-16 10:49 | HO.PSYCHPN ---
Subjective Subjective Date of Service: 08/16/21 Reason For Visit: Suicidal Interim History: Technologies Division Chair spoke briefly with patient this morning her did not want to talk given that court is today Court convened and patient is court ordered to involuntary commitment with substituted judgment for medication Technologies Division Chair met again briefly with patient following court and asked if he had any questions or wanted to talk about anything which patient did not Mental Status Exam Mental Status Exam Narrative: t is alert to self, time, place but not situation; behavior is calm, pacing hallways; adequate eye contact; mood is ok and affect is constricted; thought process is goal oriented, linear; thought content is on court; otherwise, perseverating on paranoid, persecutory delusions about being tortured; intermittent SI as fulfillment of task assigned to him by persecutors; patient believes he receives messages through various avenues, having thoughts implanted in his head or communications given through media which he avoids. Denies [facility]. ?Patients insight and judgment are impaired Diagnostics Vital Signs (24Hr): Vital Signs - 24 hr 08/15/21 18:50 08/16/21 06:00 Temperature 98.7 F 97.5 F Pulse Rate 99 117 H Respiratory Rate 18 Blood Pressure 133/67 127/89 Pulse Oximetry 95 Labs Results: 08/15/21 07:58 08/09/21 18:43 Labs: Laboratory Results - last 48 hr 08/15/21 07:58 WBC 9.0 RBC 5.21 Hgb 15.7 Hct 46.6 MCV 89.4 MCH 30.1 MCHC 33.7 RDW 13.3 Plt Count 310 D MPV 10.2 Immature Gran % (Auto) 0.3 Neut % (Auto) 66.9 Lymph % (Auto) 21.5 [place] % (Auto) 9.3 Eos % (Auto) 1.3 Baso % (Auto) 0.7 Lymph # (Auto) 1.9 [place] # (Auto) 0.8 Eos # (Auto) 0.1 Baso # (Auto) 0.1 Abs Immat Gran (auto) 0.03 Absolute Neuts (auto) 6.0 Absolute Nucleated RBC 0.000 Nucleated RBC % (auto) 0.0 Medications Medications Current Medications Acetaminophen (Acetaminophen 325 Mg Tablet) 650 mg PO Q6H PRN PRN Reason: Pain, Mild (Pain Scale 1-3) Al Hydroxide/Mg Hydroxide (Magnesium Hydrox/Alum Hydrox 30 Ml Oral.Susp) 30 ml PO Q6H PRN PRN Reason: Heartburn/Nausea Calcium Carbonate (Calcium Carbonate 750 Mg Tab.Chew) 750 mg PO Q4H PRN PRN Reason: Indigestion Last Admin: 08/06/21 19:35 Dose: 750 mg Documented by: Diphenhydramine HCl (Diphenhydramine Hcl 25 Mg Tablet) 50 mg PO Q4H PRN PRN Reason: agitation Last Admin: 07/26/21 09:00 Dose: 50 mg Documented by: Hydroxyzine HCl (Hydroxyzine Hcl 25 Mg Tablet) 25 mg PO BEDTIME PRN PRN Reason: Anxiety Last Admin: 08/04/21 21:07 Dose: 25 mg Documented by: Magnesium Hydroxide (Milk Of Magnesia 30 Ml Oral.Susp) 30 ml PO DAILY PRN PRN Reason: Constipation Nicotine Polacrilex (Nicotine Polacrilex 2 Mg Gum) 2 mg BUCCAL Q2H PRN PRN Reason: Nicotine Cravings Trazodone HCl (Trazodone Hcl 50 Mg Tablet) 50 mg PO BEDTIME PRN PRN Reason: Insomnia Ziprasidone (Ziprasidone 20 Mg Capsule) 20 mg PO TID PRN PRN Reason: agitation Allergies Allergies Allergy/AdvReac Type Severity Reaction Status Date / Time olanzapine [OLANZAPINE] Allergy Severe FACIAL Verified 04/06/21 10:20 SWELLING Assessment & Plan Assessment & Plan (1) Schizoaffective disorder: Status: Chronic Code(s): F25.9 - Schizoaffective disorder, unspecified Assessment and Plan: started meds few days ago - tolerating so far- maybe calmer due to it still pretty shut down (2) Starvation ketoacidosis: Status: Resolved Code(s): E87.2 - Acidosis Assessment and Plan: denies current plan for this (3) PTSD (post-traumatic stress disorder): Status: Suspected Code(s): F43.10 - Post-traumatic stress disorder, unspecified Assessment and Plan: Impression: Patient is a 35-year-old male with history of schizophrenia, paranoid type who presents for paranoid, persecutory delusions, in the face of going off medications, prompting pt to attempt suicide by starvation and water deprivation. While trying to starve himself to , and just days before this admission, patient also attempted to kill himself by overdosing on Tylenol; when this did not work he tried again at a higher dose. Pt now presents to from medical floor where he required fluid resuscitation,?electrolytes replenished and treatment for starvation ketoacidosis, hypernatremia and acute kidney injury.? Pt now medically cleared and transferred to psychiatric unit. ?Patient was recently discharged from the unit around 05/13/2021. HOspital course: Patient currently suffers from severe paranoid persecutory delusions that frequently direct him to harm himself in order to save his family from future torture.? Patient has no insight.? Currently refuses medications and remains on [place] 12 [address]. he says he does not necessarily want to leave the hospital, nor does he want to stay but does not want to sign a CV worried that it will be unacceptable to his persecutors. -patient remains in severe mental anguish over what is the right thing to do, very worried about making the wrong decision which will aggravate his persecutors and therefor put his family in future jeopardy; patient eventually decided to sign a CV but then later signed a 3 day notice.? He agreed to take Clozaril but then was again ambivalent.? Patient remains willing to self-harm to the point of suicide based on paranoid delusions that he must do so in order to save his family from future torment. -over the weekend patient was screaming, out of control and required medication restraint 07/11 patient remains with joel paranoid, persecutory delusions, thoughts to starve himself to based on paranoid delusion, no insight and impaired judgment. -currently he is eating and drinking but only minimally 07/12 pt decided to take Clozaril 07/13:? Patient is tormented seems to have reached a boiling point and he agreed to take Clozaril and sign in 07/15- says he will try a new approach to his decision making; agrees to continue taking Clozaril.? Remains guarded, and with paranoid delusions 07/21 floridly psychotic with intense paranoid, persecutory delusions that are overwhelming patient into repeated unsafe thinking or behavior including suicide, and starvation and water deprivation.? Patient has no insight and does not believe that medications help at all; he goes back and forth about whether to take medications as he's very anxious about contradicting his persecutors whom he believes give him messages directing his behavior. 07/23 pt again decided to stop taking medications, a frequent decision emerging every few days as patient again feels that it's safer to listen to his persecutors (paranoid delusions) then it is to go against their edict and take medications. Over the past 2 weeks, only after lengthy discussions, would patient change his mind and go back to taking medications; however this reversion is not due to any moment of insight but rather a combination of emotional exhaustion and him trying to find a loophole in his persecutors edict to not take medications. -patient put in 3 day notice 07/24-07/28: sometimes withdrawn; sometimes agitated, yelling in anguished distress about being threatened by tormentors; intermittently taking medications 07/29 - rescinded 3 day notice -since then, he's agreed to take medications, though this is intermittent; taking medications however does not represent improved insight or judgment, but as patient explains, is only done because he has for the moment not concluded that They, his torementors, have specifically barred him from doing so. This makes medication management difficult since he is on Clozaril which has a narrow window for which one can safely start/stop this med. om -He continues to intermittently stop Eating and drinking in obedience to paranoid delusion with idea that he should either commit suicide or undergo some other torture; remains without insight; remains anguished. He volunteers that he has received direction on how to kill himself post discharge and he intermittently has plans to kill himself on the unit, though he has thus far been able to limit his actions towards this end. Patient believes he receives messages through various avenues, having thoughts implanted in his head or communications given through media or circumstance. Patient reports he wants to trust this television script writer and staff but is never sure whether or not television script writer/staff is part of a conspiracy to torture him. on 08/08: Patient exhibited bizarre, generating movements of primarily his upper torso; television script writer examined patient and this was not dystonia, akathisia and was not seizure activity but rather patient's own voluntary behavior done in obedience to direction from his imagined persecutor; pt later confirmed this. NMS ruled out -labs (afebrile, autonomic stable; LDH wnl; CPK elevated as expected). Clozapine induced myoclonus considered but again given patient's presentation and his own self reporting that these movements are guided by delusional thought, very unlikely. Patient told television script writer that since medications are being given to treat a mental illness, which he does not believe he has, he will no longer take medications -08/10required IM medication, chemical restraint for wild in unsafe behavior, hitting his head against the wall unable to be redirected 08/11 more calm; body movements not present; can advance to q5 and off 1:1 for now (discussed with staff who agree). Barrier to discharge:? Patient is floridly psychotic; he has no insight and currently suffers from paranoid, persecutory delusions, believing he needs to either kill himself or engage in behaviors that will result in , in order to fulfill his persecutors demands; if discharged before stable, patient will quickly decompensate and be at high risk for suicide; he requires locked unit, and likely a custodial admission, to resolve symptoms with medication management.?BRENDA considered:? Technologies Division Chair reviewed case with Dr. Mcleod and other team members and it was discussed whether or not Dilshad needs a longer term hospitalization such as [facility]. Patient recently revealed that over the days/weeks prior to this admission, in addition to trying to starve/dehydrate himself to , he tried to kill himself 2x by Tylenol overdose, making television script writer more aware of the extent of his unsafe behavior. Patient remains without any insight at all. He is fully overwhelmed by persecutory delusions. At this point it is becoming increasing difficult for television script writer to imagine a scenario where Dilshad is safe outside of a longer term commitment where he is court ordered to take medications. For while he has indeed benefited from Clozapine (improved mood, relief from emotional anguish and reprieve from being contacted by persecutors [delusions]) his illness keeps him from attributing that benefit to medication; rather he maintains that medications are placebos and his relief is due to some other cause; and thus, on his own, patient's illness renders him unable to remain adherent with medications. However, if Dilshad had an extended hospital stay and remained on medications for an extended period of months, he may experience his relief from torture? as a product of medications and thus achieve enough insight to remain on medications as an outpatient. Technologies Division Chair will continue to discuss case with colleagues, but is coming to the conclusion that patient requires [facility] admission for his safety. PLAN: q5min checks Court ordered involuntary commitment; court ordered substituted judgment/[place] for medication WILL RESTART CLOZARIL 25 MG Q.H.S. once official order faxed to unit Bizarre body movements: resolved? -patient's movements voluntary and done in obedience to delusion? -On CV; patient is refusing medications and does not believe he has a mental illness or that he needs to be on the unit to be treated for a mental illness.? Will petition court for substituted judgment, involuntary commitment; -Team agrees that patient requires vehicle operator admission and will apply to [facility] -scheduled clonazepam 0.25 mg b.i.d. PRN for anxiety Micromedex: 1)?Rapid titration in hospitalized patients: Day 1, 50 mg orally followed by 50 to 100 mg as needed every 6 hours (up to an additional 150 mg). Thereafter, may increase daily dosage in increments of 50 to 100 mg. Mean dosage on day 1 was 207 mg/day in patients with prior clozapine exposure and 59.7 mg without prior exposure. Mean titration over 5.44 days to a dosage of 260 mg/day, lead to a mean dosage at discharge of 322 mg/day ?Sarika HEBERT, Peggy? A, Sagrolo? GEE, et al: Rapid clozapine titration in patients with treatment refractory schizophrenia. Psychiatr Q 2016; 87(2):315-322. I spent minutes with the patient and/or on the patient floor today, greater than?50% of which was spent counseling/coordinating care. Reason for contiued inpatient stay Substantial Risk for: harm to self
[2021-08-16 16:51] VITALS: BP 138/73; PULSE 78; RESP 18; TEMP 36.7; O2SAT 98
[2021-08-17 06:00] VITALS: BP 113/78; PULSE 75; TEMP 36.5; O2SAT 96
[2021-08-17 18:00] VITALS: BP 126/64; PULSE 82; RESP 16; TEMP 36.6
--- NOTE | 2021-08-17 19:07 | HO.PSYCHPN ---
Subjective Subjective Date of Service: 08/17/21 Reason For Visit: Suicidal Interim History: Met with patient today who did not want to engage. He said he did not have any questions the court outcome was what he expected. Licensed Midwife asked whether anything telegraphic typewriter operator chief said may have bothered him or if he had any questions which patient said no that telegraphic typewriter operator chief was consistent. Patient denied any thoughts of hurting himself on the unit. He also said that he would eat and drink consistently. He agreed to take Clozaril as prescribed; he understood that if he refused medication he may be given IM injection. Mental Status Exam Mental Status Exam Narrative: pt is alert to self, time, place but not situation; behavior is calm, pacing hallways; adequate eye contact; mood is ok and affect is constricted; thought process is goal oriented, linear; thought content is on court; otherwise, perseverating on paranoid, persecutory delusions about being tortured; intermittent SI as fulfillment of task assigned to him by persecutors; patient believes he receives messages through various avenues, having thoughts implanted in his head or communications given through media which he avoids. Denies [facility]. ?Patients insight and judgment are impaired Diagnostics Vital Signs (24Hr): Vital Signs - 24 hr 08/17/21 06:00 Temperature 97.7 F Pulse Rate 75 Blood Pressure 113/78 Pulse Oximetry 96 Labs Results: 08/15/21 07:58 08/09/21 18:43 Medications Medications Current Medications Acetaminophen (Acetaminophen 325 Mg Tablet) 650 mg PO Q6H PRN PRN Reason: Pain, Mild (Pain Scale 1-3) Al Hydroxide/Mg Hydroxide (Magnesium Hydrox/Alum Hydrox 30 Ml Oral.Susp) 30 ml PO Q6H PRN PRN Reason: Heartburn/Nausea Calcium Carbonate (Calcium Carbonate 750 Mg Tab.Chew) 750 mg PO Q4H PRN PRN Reason: Indigestion Last Admin: 08/06/21 19:35 Dose: 750 mg Documented by: Clozapine (Clozapine 25 Mg Tablet) 25 mg PO BEDTIME FIDEL Diphenhydramine HCl (Diphenhydramine Hcl 25 Mg Tablet) 50 mg PO Q4H PRN PRN Reason: agitation Last Admin: 07/26/21 09:00 Dose: 50 mg Documented by: Hydroxyzine HCl (Hydroxyzine Hcl 25 Mg Tablet) 25 mg PO BEDTIME PRN PRN Reason: Anxiety Last Admin: 08/04/21 21:07 Dose: 25 mg Documented by: Magnesium Hydroxide (Milk Of Magnesia 30 Ml Oral.Susp) 30 ml PO DAILY PRN PRN Reason: Constipation Nicotine Polacrilex (Nicotine Polacrilex 2 Mg Gum) 2 mg BUCCAL Q2H PRN PRN Reason: Nicotine Cravings Trazodone HCl (Trazodone Hcl 50 Mg Tablet) 50 mg PO BEDTIME PRN PRN Reason: Insomnia Ziprasidone (Ziprasidone 20 Mg Capsule) 20 mg PO TID PRN PRN Reason: agitation Allergies Allergies Allergy/AdvReac Type Severity Reaction Status Date / Time olanzapine [OLANZAPINE] Allergy Severe FACIAL Verified 04/06/21 10:20 SWELLING Assessment & Plan Assessment & Plan (1) Schizoaffective disorder: Status: Chronic Code(s): F25.9 - Schizoaffective disorder, unspecified Assessment and Plan: started meds few days ago - tolerating so far- maybe calmer due to it still pretty shut down (2) Starvation ketoacidosis: Status: Resolved Code(s): E87.2 - Acidosis Assessment and Plan: denies current plan for this (3) PTSD (post-traumatic stress disorder): Status: Suspected Code(s): F43.10 - Post-traumatic stress disorder, unspecified Assessment and Plan: Impression: Patient is a 35-year-old male with history of schizophrenia, paranoid type who presents for paranoid, persecutory delusions, in the face of going off medications, prompting pt to attempt suicide by starvation and water deprivation. While trying to starve himself to , and just days before this admission, patient also attempted to kill himself by overdosing on Tylenol; when this did not work he tried again at a higher dose. Pt now presents to M5 from medical floor where he required fluid resuscitation,?electrolytes replenished and treatment for starvation ketoacidosis, hypernatremia and acute kidney injury.? Pt now medically cleared and transferred to psychiatric unit. ?Patient was recently discharged from the unit around 05/13/2021. HOspital course: Patient currently suffers from severe paranoid persecutory delusions that frequently direct him to harm himself in order to save his family from future torture.? Patient has no insight.? Currently refuses medications and remains on Section 12 B. he says he does not necessarily want to leave the hospital, nor does he want to stay but does not want to sign a CV worried that it will be unacceptable to his persecutors. -patient remains in severe mental anguish over what is the right thing to do, very worried about making the wrong decision which will aggravate his persecutors and therefor put his family in future jeopardy; patient eventually decided to sign a CV but then later signed a 3 day notice.? He agreed to take Clozaril but then was again ambivalent.? Patient remains willing to self-harm to the point of suicide based on paranoid delusions that he must do so in order to save his family from future torment. -over the weekend patient was screaming, out of control and required medication restraint 07/11 patient remains with joel paranoid, persecutory delusions, thoughts to starve himself to based on paranoid delusion, no insight and impaired judgment. -currently he is eating and drinking but only minimally 07/12 pt decided to take Clozaril 07/13:? Patient is tormented seems to have reached a boiling point and he agreed to take Clozaril and sign in 07/15- says he will try a new approach to his decision making; agrees to continue taking Clozaril.? Remains guarded, and with paranoid delusions 07/21 floridly psychotic with intense paranoid, persecutory delusions that are overwhelming patient into repeated unsafe thinking or behavior including suicide, and starvation and water deprivation.? Patient has no insight and does not believe that medications help at all; he goes back and forth about whether to take medications as he's very anxious about contradicting his persecutors whom he believes give him messages directing his behavior. 07/23 pt again decided to stop taking medications, a frequent decision emerging every few days as patient again feels that it's safer to listen to his persecutors (paranoid delusions) then it is to go against their edict and take medications. Over the past 2 weeks, only after lengthy discussions, would patient change his mind and go back to taking medications; however this reversion is not due to any moment of insight but rather a combination of emotional exhaustion and him trying to find a loophole in his persecutors edict to not take medications. -patient put in 3 day notice 07/24-07/28: sometimes withdrawn; sometimes agitated, yelling in anguished distress about being threatened by tormentors; intermittently taking medications 07/29 - rescinded 3 day notice -since then, he's agreed to take medications, though this is intermittent; taking medications however does not represent improved insight or judgment, but as patient explains, is only done because he has for the moment not concluded that They, his torementors, have specifically barred him from doing so. This makes medication management difficult since he is on Clozaril which has a narrow window for which one can safely start/stop this med. om -He continues to intermittently stop Eating and drinking in obedience to paranoid delusion with idea that he should either commit suicide or undergo some other torture; remains without insight; remains anguished. He volunteers that he has received direction on how to kill himself post discharge and he intermittently has plans to kill himself on the unit, though he has thus far been able to limit his actions towards this end. Patient believes he receives messages through various avenues, having thoughts implanted in his head or communications given through media or circumstance. Patient reports he wants to trust this telegraphic typewriter operator chief and staff but is never sure whether or not telegraphic typewriter operator chief/staff is part of a conspiracy to torture him. on 08/08: Patient exhibited bizarre, generating movements of primarily his upper torso; telegraphic typewriter operator chief examined patient and this was not dystonia, akathisia and was not seizure activity but rather patient's own voluntary behavior done in obedience to direction from his imagined persecutor; pt later confirmed this. NMS ruled out -labs (afebrile, autonomic stable; LDH wnl; CPK elevated as expected). Clozapine induced myoclonus considered but again given patient's presentation and his own self reporting that these movements are guided by delusional thought, very unlikely. Patient told telegraphic typewriter operator chief that since medications are being given to treat a mental illness, which he does not believe he has, he will no longer take medications -08/10required IM medication, chemical restraint for wild in unsafe behavior, hitting his head against the wall unable to be redirected 08/11 more calm; body movements not present; can advance to q5 and off 1:1 for now (discussed with staff who agree). Barrier to discharge:? Patient is floridly psychotic; he has no insight and currently suffers from paranoid, persecutory delusions, believing he needs to either kill himself or engage in behaviors that will result in , in order to fulfill his persecutors demands; if discharged before stable, patient will quickly decompensate and be at high risk for suicide; he requires locked unit, and likely a exterminator admission, to resolve symptoms with medication management.?BRENDA considered:? Licensed Midwife reviewed case with Dr. Mcleod and other team members and it was discussed whether or not Dilshad needs a longer term hospitalization such as [facility]. Patient recently revealed that over the days/weeks prior to this admission, in addition to trying to starve/dehydrate himself to , he tried to kill himself 2x by Tylenol overdose, making telegraphic typewriter operator chief more aware of the extent of his unsafe behavior. Patient remains without any insight at all. He is fully overwhelmed by persecutory delusions. At this point it is becoming increasing difficult for telegraphic typewriter operator chief to imagine a scenario where Dilshad is safe outside of a longer term commitment where he is court ordered to take medications. For while he has indeed benefited from Clozapine (improved mood, relief from emotional anguish and reprieve from being contacted by persecutors [delusions]) his illness keeps him from attributing that benefit to medication; rather he maintains that medications are placebos and his relief is due to some other cause; and thus, on his own, patient's illness renders him unable to remain adherent with medications. However, if Dilshad had an extended hospital stay and remained on medications for an extended period of months, he may experience his relief from torture? as a product of medications and thus achieve enough insight to remain on medications as an outpatient. Licensed Midwife will continue to discuss case with colleagues, but is coming to the conclusion that patient requires [facility] admission for his safety. PLAN: q5min checks (currently no unsafe behaviors) Court ordered involuntary commitment; court ordered substituted judgment/[place] for medication RESTART CLOZARIL 25 MG Q.H.S. cannot refuse; give IM Ziprasidone if refuses Ziprasidone 20mg IM if refuses Clozaril Bizarre body movements: resolved? -patient's movements voluntary and done in obedience to delusion? -Team agrees that patient requires shelter admission and will apply to [facility] -scheduled clonazepam 0.25 mg b.i.d. PRN for anxiety Micromedex: 1)?Rapid titration in hospitalized patients: Day 1, 50 mg orally followed by 50 to 100 mg as needed every 6 hours (up to an additional 150 mg). Thereafter, may increase daily dosage in increments of 50 to 100 mg. Mean dosage on day 1 was 207 mg/day in patients with prior clozapine exposure and 59.7 mg without prior exposure. Mean titration over 5.44 days to a dosage of 260 mg/day, lead to a mean dosage at discharge of 322 mg/day ?Sarika CA, Peggy? A, Sagrolo? NG, et al: Rapid clozapine titration in patients with treatment refractory schizophrenia. Psychiatr Q 2016; 87(2):315-322. I spent minutes with the patient and/or on the patient floor today, greater than?50% of which was spent counseling/coordinating care. Reason for contiued inpatient stay Substantial Risk for: harm to self
[2021-08-17 20:57] LABS: COVID-19 Test Negative (Negative)
[2021-08-17] MEDS: cloZAPine 25 MG TABLET PO (21:02)
[2021-08-18 06:40] VITALS: BP 112/68; PULSE 69; RESP 16; TEMP 36.8; O2SAT 98
--- NOTE | 2021-08-18 12:30 | P.EN_ITS ---
Event Note Date of Service: 08/18/21 Event Note: HOSPITAL COURSE Patient is a 35-year-old male with history of schizophrenia, paranoid type who presents for paranoid, persecutory delusions, in the face of going off medications, prompting pt to attempt suicide by starvation and water deprivation.? While trying to starve himself to , and just days before this admission, patient also attempted to kill himself by overdosing on Tylenol; when this did not work he tried again at a higher dose. Pt now presents to from medical floor where he required fluid resuscitation,?electrolytes replenished and treatment for starvation ketoacidosis, hypernatremia and acute kidney injury.? Pt now medically cleared and transferred to psychiatric unit. ?Patient was recently discharged from the unit around 05/13/2021. During admission: Patient currently suffers from severe paranoid persecutory delusions that frequently direct him to harm himself in order to save his family from future torture.? Patient has no insight.? Currently refuses medications and remains on Section 12 B. he says he does not necessarily want to leave the hospital, nor does he want to stay but does not want to sign a CV worried that it will be unacceptable to his persecutors. -patient remains in severe mental anguish over what is the right thing to do, very worried about making the wrong decision which will aggravate his persecutors and therefor put his family in future jeopardy; patient eventually decided to sign a CV but then later signed a 3 day notice.? He agreed to take Clozaril but then was again ambivalent.? Patient remains willing to self-harm to the point of suicide based on paranoid delusions that he must do so in order to save his family from future torment. -over the weekend patient was screaming, out of control and required medication restraint 07/11 patient remains with joel paranoid, persecutory delusions, thoughts to starve himself to based on paranoid delusion, no insight and impaired judgment. -currently he is eating and drinking but only minimally 07/12 pt decided to take Clozaril 07/13:? Patient is tormented seems to have reached a boiling point and he agreed to take Clozaril and sign in 07/15- says he will try a new approach to his decision making; agrees to continue taking Clozaril.? Remains guarded, and with paranoid delusions 07/21 floridly psychotic with intense paranoid, persecutory delusions that are overwhelming patient into repeated unsafe thinking or behavior including suicide, and starvation and water deprivation.? Patient has no insight and does not believe that medications help at all; he goes back and forth about whether to take medications as he's very anxious about contradicting his persecutors whom he believes give him messages directing his behavior. 07/23 pt again decided to stop taking medications, a frequent decision emerging every few days as patient again feels that it's safer to listen to his persecutors (paranoid delusions) then it is to go against their edict and take medications. Over the past 2 weeks, only after lengthy discussions, would patient change his mind and go back to taking medications; however this reversion is not due to any moment of insight but rather a combination of emotional exhaustion and him trying to find a loophole in his persecutors edict to not take medications. -patient put in 3 day notice 07/24-07/28: sometimes withdrawn; sometimes agitated, yelling in anguished distress about being threatened by tormentors; intermittently taking medications 07/29 - rescinded 3 day notice -since then, he's agreed to take medications, though this is intermittent; taking medications however does not represent improved insight or judgment, but? as patient explains, is only done because he has for the moment not concluded that They, his torementors,? have specifically barred him from doing so. This makes medication management difficult since he is on Clozaril which has a narrow window for which one can safely start/stop this med. om -He continues to intermittently stop Eating and drinking in obedience to paranoid delusion with idea that he should either commit suicide or undergo some other torture; remains without insight; remains anguished. He volunteers that he has received direction on how to kill himself post discharge and he intermittently has plans to kill himself on the unit, though he has thus far been able to limit his actions towards this end. Patient believes he receives messages through various avenues, having thoughts implanted in his head or communications given through media or circumstance.? Patient reports he wants to trust this underwriter solicitation director and staff but is never sure whether or not underwriter solicitation director/staff is part of a conspiracy to torture him. on 08/08:? Patient exhibited bizarre, generating movements of primarily his upper torso; underwriter solicitation director examined patient and this was not dystonia, akathisia and was not seizure activity but rather patient's own voluntary behavior done in obedience to direction from his imagined persecutor; pt later confirmed this.? NMS ruled out -labs (afebrile, autonomic stable; LDH wnl; CPK elevated as expected). Clozapine induced myoclonus considered? but again given patient's presentation and his own self reporting that these movements are guided by delusional thought, very unlikely.? Patient told underwriter solicitation director that since medications are being given to treat a mental illness, which he does not believe he has, he will no longer take medications -08/10required IM medication, chemical restraint for wild in unsafe behavior, hitting his head against the wall unable to be redirected 08/11 more calm; body movements not present; can advance to q5 and off 1:1 for now (discussed with staff who agree). Barrier to discharge:? Patient is floridly psychotic; he has no insight and currently suffers from paranoid, persecutory delusions, believing he needs to either kill himself or engage in behaviors that will result in , in order to fulfill his persecutors demands; if discharged before stable, patient will qu ickly decompensate and be at high risk for suicide; he requires locked unit, and likely a exterminator termite admission, to resolve symptoms with medication management.? [facility] application:? Natural [employer] Trader reviewed case with Dr. Mcleod and other team members and it was discussed whether or not Dilshad needs a longer term hospitalization such as [facility]. Patient recently revealed that over the da ys/weeks prior to this admission, in addition to trying to starve/dehydrate himself to , he tried to kill himself 2x by Tylenol overdose, making underwriter solicitation director more aware of the extent of his unsafe behavior. Patient remains without any insight at all. He is fully overwhelmed by persecutory delusions. At this point it is becoming increasing difficult for underwriter solicitation director to imagine a scenario where Dilshad is safe outside of a longer term commitment where he is court ordered to take medications. For while he has indeed benefited from Clozapine (improved mood, relief from emotional anguish and reprieve from being contacted by persecutors [delusions]) his illness keeps him from attributing that benefit to medication; rather he maintains that medications are placebos and his relief is due to some other cause; and thus, on his own, patient's illness renders him unable to remain adherent with medications. However, if Dilshad had an extended hospital stay and remained on medications for an extended period of months, he may experience his relief from torture? as a product of medications and thus achieve enough insight to remain on medications as an outpatient. After further discussion with colleagues, underwriter solicitation director has come to the conclusion that patient requires [facility] admission for his safety.
--- NOTE | 2021-08-18 12:36 | HO.PSYCHPN ---
Subjective Subjective Date of Service: 08/18/21 Reason For Visit: Suicidal Interim History: pt said that he's alright. property underwriter asked about how he felt about his peers speaking rudely to him to which pt said it is not bothering him. He said he feels safe on unit and will not try to self harm. Primer Waterproofing Machine Adjuster asked about his experience of being persecuted to which pt said i dont' want to get into that. Pt did not want to engage furhter. Mental Status Exam Mental Status Exam Narrative: pt is alert to self, time, place but not situation; behavior is calm, pacing hallways; adequate eye contact; mood is alright and affect is constricted; thought process is goal oriented, linear; thought content is on court; otherwise, perseverating on paranoid, persecutory delusions about being tortured; intermittent SI as fulfillment of task assigned to him by persecutors; patient believes he receives messages through various avenues, having thoughts implanted in his head or communications given through media which he avoids. Denies AvH. ?Patients insight and judgment are impaired Diagnostics Vital Signs (24Hr): Vital Signs - 24 hr 08/17/21 18:00 08/18/21 06:40 Temperature 98 F 98.2 F Pulse Rate 82 69 Respiratory Rate 16 16 Blood Pressure 126/64 112/68 Pulse Oximetry 98 Labs Results: 08/15/21 07:58 08/09/21 18:43 Labs: Laboratory Results - last 48 hr 08/17/21 20:02 COVID-19 ([facility]) Negative COVID-19 Clin Com See Note Medications Medications Current Medications Acetaminophen (Acetaminophen 325 Mg Tablet) 650 mg PO Q6H PRN PRN Reason: Pain, Mild (Pain Scale 1-3) Al Hydroxide/Mg Hydroxide (Magnesium Hydrox/Alum Hydrox 30 Ml Oral.Susp) 30 ml PO Q6H PRN PRN Reason: Heartburn/Nausea Calcium Carbonate (Calcium Carbonate 750 Mg Tab.Chew) 750 mg PO Q4H PRN PRN Reason: Indigestion Last Admin: 08/06/21 19:35 Dose: 750 mg Documented by: Clozapine (Clozapine 25 Mg Tablet) 25 mg PO BEDTIME FIDEL Last Admin: 08/17/21 21:02 Dose: 25 mg Documented by: Diphenhydramine HCl (Diphenhydramine Hcl 25 Mg Tablet) 50 mg PO Q4H PRN PRN Reason: agitation Last Admin: 07/26/21 09:00 Dose: 50 mg Documented by: Hydroxyzine HCl (Hydroxyzine Hcl 25 Mg Tablet) 25 mg PO BEDTIME PRN PRN Reason: Anxiety Last Admin: 08/04/21 21:07 Dose: 25 mg Documented by: Magnesium Hydroxide (Milk Of Magnesia 30 Ml Oral.Susp) 30 ml PO DAILY PRN PRN Reason: Constipation Nicotine Polacrilex (Nicotine Polacrilex 2 Mg Gum) 2 mg BUCCAL Q2H PRN PRN Reason: Nicotine Cravings Trazodone HCl (Trazodone Hcl 50 Mg Tablet) 50 mg PO BEDTIME PRN PRN Reason: Insomnia Ziprasidone (Ziprasidone 20 Mg Capsule) 20 mg PO TID PRN PRN Reason: agitation Ziprasidone (Ziprasidone Mesylate 20 Mg Vial) 20 mg IM DAILY PRN PRN Reason: on Euceda; if refuses PO Allergies Allergies Allergy/AdvReac Type Severity Reaction Status Date / Time olanzapine [OLANZAPINE] Allergy Severe FACIAL Verified 04/06/21 10:20 SWELLING Assessment & Plan Assessment & Plan (1) Schizoaffective disorder: Status: Chronic Code(s): F25.9 - Schizoaffective disorder, unspecified Assessment and Plan: started meds few days ago - tolerating so far- maybe calmer due to it still pretty shut down (2) Starvation ketoacidosis: Status: Resolved Code(s): E87.2 - Acidosis Assessment and Plan: denies current plan for this (3) PTSD (post-traumatic stress disorder): Status: Suspected Code(s): F43.10 - Post-traumatic stress disorder, unspecified Assessment and Plan: Impression: Patient is a 35-year-old male with history of schizophrenia, paranoid type who presents for paranoid, persecutory delusions, in the face of going off medications, prompting pt to attempt suicide by starvation and water deprivation. While trying to starve himself to , and just days before this admission, patient also attempted to kill himself by overdosing on Tylenol; when this did not work he tried again at a higher dose. Pt now presents to from medical floor where he required fluid resuscitation,?electrolytes replenished and treatment for starvation ketoacidosis, hypernatremia and acute kidney injury.? Pt now medically cleared and transferred to psychiatric unit. ?Patient was recently discharged from the unit around 05/13/2021. HOspital course: Patient currently suffers from severe paranoid persecutory delusions that frequently direct him to harm himself in order to save his family from future torture.? Patient has no insight.? Currently refuses medications and remains on [place] 12 [address]. he says he does not necessarily want to leave the hospital, nor does he want to stay but does not want to sign a CV worried that it will be unacceptable to his persecutors. -patient remains in severe mental anguish over what is the right thing to do, very worried about making the wrong decision which will aggravate his persecutors and therefor put his family in future jeopardy; patient eventually decided to sign a CV but then later signed a 3 day notice.? He agreed to take Clozaril but then was again ambivalent.? Patient remains willing to self-harm to the point of suicide based on paranoid delusions that he must do so in order to save his family from future torment. -over the weekend patient was screaming, out of control and required medication restraint 07/11 patient remains with joel paranoid, persecutory delusions, thoughts to starve himself to based on paranoid delusion, no insight and impaired judgment. -currently he is eating and drinking but only minimally 07/12 pt decided to take Clozaril 07/13:? Patient is tormented seems to have reached a boiling point and he agreed to take Clozaril and sign in 07/15- says he will try a new approach to his decision making; agrees to continue taking Clozaril.? Remains guarded, and with paranoid delusions 07/21 floridly psychotic with intense paranoid, persecutory delusions that are overwhelming patient into repeated unsafe thinking or behavior including suicide, and starvation and water deprivation.? Patient has no insight and does not believe that medications help at all; he goes back and forth about whether to take medications as he's very anxious about contradicting his persecutors whom he believes give him messages directing his behavior. 07/23 pt again decided to stop taking medications, a frequent decision emerging every few days as patient again feels that it's safer to listen to his persecutors (paranoid delusions) then it is to go against their edict and take medications. Over the past 2 weeks, only after lengthy discussions, would patient change his mind and go back to taking medications; however this reversion is not due to any moment of insight but rather a combination of emotional exhaustion and him trying to find a loophole in his persecutors edict to not take medications. -patient put in 3 day notice 07/24-07/28: sometimes withdrawn; sometimes agitated, yelling in anguished distress about being threatened by tormentors; intermittently taking medications 07/29 - rescinded 3 day notice -since then, he's agreed to take medications, though this is intermittent; taking medications however does not represent improved insight or judgment, but as patient explains, is only done because he has for the moment not concluded that They, his torementors, have specifically barred him from doing so. This makes medication management difficult since he is on Clozaril which has a narrow window for which one can safely start/stop this med. om -He continues to intermittently stop Eating and drinking in obedience to paranoid delusion with idea that he should either commit suicide or undergo some other torture; remains without insight; remains anguished. He volunteers that he has received direction on how to kill himself post discharge and he intermittently has plans to kill himself on the unit, though he has thus far been able to limit his actions towards this end. Patient believes he receives messages through various avenues, having thoughts implanted in his head or communications given through media or circumstance. Patient reports he wants to trust this property underwriter and staff but is never sure whether or not property underwriter/staff is part of a conspiracy to torture him. on 08/08: Patient exhibited bizarre, generating movements of primarily his upper torso; property underwriter examined patient and this was not dystonia, akathisia and was not seizure activity but rather patient's own voluntary behavior done in obedience to direction from his imagined persecutor; pt later confirmed this. NMS ruled out -labs (afebrile, autonomic stable; LDH wnl; CPK elevated as expected). Clozapine induced myoclonus considered but again given patient's presentation and his own self reporting that these movements are guided by delusional thought, very unlikely. Patient told property underwriter that since medications are being given to treat a mental illness, which he does not believe he has, he will no longer take medications -08/10required IM medication, chemical restraint for wild in unsafe behavior, hitting his head against the wall unable to be redirected 08/11 more calm; body movements not present; can advance to q5 and off 1:1 for now (discussed with staff who agree). 08/18 -pt restarted on Clozapine (on 08/17) -calm on unit, but not willing to enage in talk therapy; mostly pacing halls during day -Bizarre body movements remain resolved? -patient's movements voluntary and done in obedience to delusion ? Barrier to discharge:? Patient is floridly psychotic; he has no insight and currently suffers from paranoid, persecutory delusions, believing he needs to either kill himself or engage in behaviors that will result in , in order to fulfill his persecutors demands; if discharged before stable, patient will quickly decompensate and be at high risk for suicide; he requires locked unit, and likely a long wall mining machine tender admission, to resolve symptoms with medication management.?BRENDA considered:? Primer Waterproofing Machine Adjuster reviewed case with Dr. Mcleod and other team members and it was discussed whether or not Dilshad needs a longer term hospitalization such as [facility]. Patient recently revealed that over the days/weeks prior to this admission, in addition to trying to starve/dehydrate himself to , he tried to kill himself 2x by Tylenol overdose, making property underwriter more aware of the extent of his unsafe behavior. Patient remains without any insight at all. He is fully overwhelmed by persecutory delusions. At this point it is becoming increasing difficult for property underwriter to imagine a scenario where Dilshad is safe outside of a longer term commitment where he is court ordered to take medications. For while he has indeed benefited from Clozapine (improved mood, relief from emotional anguish and reprieve from being contacted by persecutors [delusions]) his illness keeps him from attributing that benefit to medication; rather he maintains that medications are placebos and his relief is due to some other cause; and thus, on his own, patient's illness renders him unable to remain adherent with medications. However, if Dilshad had an extended hospital stay and remained on medications for an extended period of months, he may experience his relief from torture? as a product of medications and thus achieve enough insight to remain on medications as an outpatient. Primer Waterproofing Machine Adjuster will continue to discuss case with colleagues, but is coming to the conclusion that patient requires [facility] admission for his safety. PLAN: q5min checks (currently no unsafe behaviors) Court ordered involuntary commitment; court ordered substituted judgment/Euceda for medication Restarted CLOZARIL 25 MG Q.H.S., will titrate; cannot refuse; give IM Ziprasidone if refuses Ziprasidone 20mg IM if refuses Clozaril -Team agrees that patient requires nursing home admission and will apply to [facility] -scheduled clonazepam 0.25 mg b.i.d. PRN for anxiety Micromedex: 1)?Rapid titration in hospitalized patients: Day 1, 50 mg orally followed by 50 to 100 mg as needed every 6 hours (up to an additional 150 mg). Thereafter, may increase daily dosage in increments of 50 to 100 mg. Mean dosage on day 1 was 207 mg/day in patients with prior clozapine exposure and 59.7 mg without prior exposure. Mean titration over 5.44 days to a dosage of 260 mg/day, lead to a mean dosage at discharge of 322 mg/day ?Sarika CA, Peggy? A, Sagrolo? NG, et al: Rapid clozapine titration in patients with treatment refractory schizophrenia. Psychiatr Q 2016; 87(2):315-322. I spent minutes with the patient and/or on the patient floor today, greater than?50% of which was spent counseling/coordinating care. Reason for contiued inpatient stay Substantial Risk for: harm to self
[2021-08-18 18:00] VITALS: BP 110/60; PULSE 78; TEMP 36.8
[2021-08-18] MEDS: cloZAPine 25 MG TABLET PO (20:06)
[2021-08-19 08:43] LABS: COVID-19 Test Negative (Negative)
--- NOTE | 2021-08-19 10:29 | P.PNPSI_ITS ---
Subjective Subjective Date of Service: 08/19/21 Reason For Visit: Suicidal Interim History: Patient mostly pacing the halls. He is willing to sit down with communications writer but very difficult to engage. He has no plans to hurt himself on the unit and denies any requests or complaints; he agrees to continue titration of clozapine. Patient does not want to talk about psychiatric symptoms. Mental Status Exam Mental Status Exam Narrative: pt is alert to self, time, place but not situation; behavior is calm, pacing hallways; adequate eye contact; mood is alright and affect is constricted; thought process is goal oriented, linear; thought content is on court; otherwise, perseverating on paranoid, persecutory delusions about being tortured; intermittent SI as fulfillment of task assigned to him by persecutors; patient believes he receives messages through various avenues, having thoughts i mplanted in his head or communications given through media which he avoids. Denies [facility]. ?Patients insight and judgment are impaired Diagnostics Vital Signs (24Hr): Vital Signs - 24 hr 08/18/21 18:00 Temperature 98.3 F Pulse Rate 78 Blood Pressure 110/60 Labs Results: 08/22/21 08:27 08/09/21 18:43 Labs: Laboratory Results - last 48 hr 08/17/21 08/19/21 20:02 08:05 COVID-19 ([facility]) Negative Negative COVID-19 Clin Com See Note See Note Medications Medications Current Medications Acetaminophen (Acetaminophen 325 Mg Tablet) 650 mg PO Q6H PRN PRN Reason: Pain, Mild (Pain Scale 1-3) Al Hydroxide/Mg Hydroxide (Magnesium Hydrox/Alum Hydrox 30 Ml Oral.Susp) 30 ml PO Q6H PRN PRN Reason: Heartburn/Nausea Calcium Carbonate (Calcium Carbonate 750 Mg Tab.Chew) 750 mg PO Q4H PRN PRN Reason: Indigestion Last Admin: 08/06/21 19:35 Dose: 750 mg Documented by: Clozapine (Clozapine 25 Mg Tablet) 25 mg PO BEDTIME FIDEL Last Admin: 08/18/21 20:06 Dose: 25 mg Documented by: Diphenhydramine HCl (Diphenhydramine Hcl 25 Mg Tablet) 50 mg PO Q4H PRN PRN Reason: agitation Last Admin: 07/26/21 09:00 Dose: 50 mg Documented by: Hydroxyzine HCl (Hydroxyzine Hcl 25 Mg Tablet) 25 mg PO BEDTIME PRN PRN Reason: Anxiety Last Admin: 08/04/21 21:07 Dose: 25 mg Documented by: Magnesium Hydroxide (Milk Of Magnesia 30 Ml Oral.Susp) 30 ml PO DAILY PRN PRN Reason: Constipation Nicotine Polacrilex (Nicotine Polacrilex 2 Mg Gum) 2 mg BUCCAL Q2H PRN PRN Reason: Nicotine Cravings Trazodone HCl (Trazodone Hcl 50 Mg Tablet) 50 mg PO BEDTIME PRN PRN Reason: Insomnia Ziprasidone (Ziprasidone 20 Mg Capsule) 20 mg PO TID PRN PRN Reason: agitation Ziprasidone (Ziprasidone Mesylate 20 Mg Vial) 20 mg IM DAILY PRN PRN Reason: on Euceda; if refuses PO Allergies Allergies Allergy/AdvReac Type Severity Reaction Status Date / Time olanzapine [OLANZAPINE] Allergy Severe FACIAL Verified 04/06/21 10:20 SWELLING Assessment & Plan Assessment & Plan (1) Schizoaffective disorder: Status: Chronic Code(s): F25.9 - Schizoaffective disorder, unspecified Assessment and Plan: started meds few days ago - tolerating so far- maybe calmer due to it still pretty shut down (2) Starvation ketoacidosis: Status: Resolved Code(s): E87.2 - Acidosis Assessment and Plan: denies current plan for this (3) PTSD (post-traumatic stress disorder): Status: Suspected Code(s): F43.10 - Post-traumatic stress disorder, unspecified Assessment and Plan: Impression: Patient is a 35-year-old male with history of schizophrenia, paranoid type who presents for paranoid, persecutory delusions, in the face of going off medications, prompting pt to attempt suicide by starvation and water deprivation. While trying to starve himself to , and just days before this admission, patient also attempted to kill himself by overdosing on Tylenol; when this did not work he tried again at a higher dose. Pt now presents to [facility]5 from medical floor where he required fluid resuscitation,?electrolytes replenished and treatment for starvation ketoacidosis, hypernatremia and acute kidney injury.? Pt now medically cleared and transferred to psychiatric unit. ?Patient was recently discharged from the unit around 05/13/2021. HOspital course: Patient currently suffers from severe paranoid persecutory delusions that freque ntly direct him to harm himself in order to save his family from future torture.? Patient has no insight.? Currently refuses medications and remains on [place] 12 B. he says he does not necessarily want to leave the hospital, nor does he want to stay but does not want to sign a CV worried that it will be unacceptable to his persecutors. -patient remains in severe mental anguish over what is the right thing to do, very worried about making the wrong decision which will aggravate his persecutors and therefor put his family in future jeopardy; patient eventually decided to sign a CV but then later signed a 3 day notice.? He agreed to take Clozaril but then was again ambivalent.? Patient remains willing to self-harm to the point of suicide based on paranoid delusions that he must do so in order to save his family from future torment. -over the weekend patient was screaming, out of control and required medication restraint 07/11 patient remains with joel paranoid, persecutory delusions, thoughts to starve himself to based on paranoid delusion, no insight and impaired judgment. -currently he is eating and drinking but only minimally 07/12 pt decided to take Clozaril 07/13:? Patient is tormented seems to have reached a boiling point and he agreed to take Clozaril and sign in 07/15- says he will try a new approach to his decision making; agrees to continue taking Clozaril.? Remains guarded, and with paranoid delusions 07/21 floridly psychotic with intense paranoid, persecutory delusions that are overwhelming patient into repeated unsafe thinking or behavior including suicide, and starvation and water deprivation.? Patient has no insight and does not believe that medications help at all; he goes back and forth about whether to take medications as he's very anxious about contradicting his persecutors whom he believes give him messages directing his behavior. 07/23 pt again decided to stop taking medications, a frequent decision emerging every few days as patient again feels that it's safer to listen to his persecutors (paranoid delusions) then it is to go against their edict and take medications. Over the past 2 weeks, only after lengthy discussions, would patient change his mind and go back to taking medications; however this reversion is not due to any moment of insight but rather a combination of emotional exhaustion and him trying to find a loophole in his persecutors edict to not take medications. -patient put in 3 day notice 07/24-07/28: sometimes withdrawn; sometimes agitated, yelling in anguished distress about being threatened by tormentors; intermittently taking medications 07/29 - rescinded 3 day notice -since then, he's agreed to take medications, though this is intermittent; taking medications however does not represent improved insight or judgment, but as patient explains, is only done because he has for the moment not concluded that They, his torementors, have specifically barred him from doing so. This makes medication management difficult since he is on Clozaril which has a narrow window for which one can safely start/stop this med. om -He continues to intermittently stop Eating and drinking in obedience to paranoid delusion with idea that he should either commit suicide or undergo some other torture; remains without insight; remains anguished. He volunteers that he has received direction on how to kill himself post discharge and he intermittently has plans to kill himself on the unit, though he has thus far been able to limit his actions towards this end. Patient believes he receives messages through various avenues, having thoughts implanted in his head or communications given through media or circumstance. Patient reports he wants to trust this communications writer and staff but is never sure whether or not communications writer/staff is part of a conspiracy to torture him. on 08/08: Patient exhibited bizarre, generating movements of primarily his upper torso; communications writer examined patient and this was not dystonia, akathisia and was not seizure activity but rather patient's own voluntary behavior done in obedience to direction from his imagined persecutor; pt later confirmed this. NMS ruled out -labs (afebrile, autonomic stable; LDH wnl; CPK elevated as expected). Clozapine induced myoclonus considered but again given patient's presentation and his own self reporting that these movements are guided by d elusional thought, very unlikely. Patient told communications writer that since medications are being given to treat a mental illness, which he does not believe he has, he will no longer take medications -08/10required IM medication, chemical restraint for wild in unsafe behavior, hitting his head against the wall unable to be redirected 08/11 more calm; body movements not present; can advance to q5 and off 1:1 for now (discussed with staff who agree). 08/18 -pt restarted on Clozapine (on 08/17) -calm on unit, but not willing to enage in talk therapy; mostly pacing halls during day -Bizarre body movements remain resolved? -patient's movements voluntary and done in obedience to delusion ? Barrier to discharge:? Patient is floridly psychotic; he has no insight and currently suffers from paranoid, persecutory delusions, believing he needs to either kill himself or engage in behaviors that will result in , in order to fulfill his persecutors demands; if discharged before stable, patient will quickly decompensate and be at high risk for suicide; he requires locked unit, and likely a intermodal dispatcher admission, to resolve symptoms with medication management.?BRENDA considered:? Clinical Case Manager reviewed case with Dr. Mcleod and other team members and it was discussed whether or not Dilshad needs a longer term hospitalization such as [facility]. Patient recently revealed that over the days/weeks prior to this admission, in addition to trying to starve/dehydrate himself to , he tried to kill himself 2x by Tylenol overdose, making communications writer more aware of the extent of his unsafe behavior. Patient remains without any insight at all. He is fully overwhelmed by persecutory delusions. At this point it is becoming increasing difficult for communications writer to imagine a scenario where Dilshad is safe outside of a longer term commitment where he is court ordered to take medications. For while he has indeed benefited from Clozapine (improved mood, relief from emotional anguish and reprieve from being contacted by persecutors [delusions]) his illness keeps him from attributing that benefit to medication; rather he maintains that medications are placebos and his relief is due to some other cause; and thus, on his own, patient's illness renders him unable to remain adherent with medications. However, if Dilshad had an extended hospital stay and remained on medications for an extended period of months, he may experience his relief from torture? as a product of medications and thus achieve enough insight to remain on medications as an outpatient. Clinical Case Manager will continue to dis cuss case with colleagues, but is coming to the conclusion that patient requires [facility] admission for his safety. PLAN: q5min checks (currently no unsafe behaviors) Court ordered involuntary commitment; court ordered substituted judgment/Euceda for medication Titrate CLOZARIL 50MG Q.H.S., will titrate; cannot refuse; give IM Ziprasidone if refuses Ziprasidone 20mg IM if refuses Clozaril -Team agrees that patient requires intermodal dispatcher admission and will apply to [facility] -scheduled clonazepam 0.25 mg b.i.d. PRN for anxiety Micromedex: 1)?Rapid titration in hospitalized patients: Day 1, 50 mg orally followed by 50 to 100 mg as needed every 6 hours (up to an additional 150 mg). Thereafter, may increase daily dosage in increments of 50 to 100 mg. Mean dosage on day 1 was 207 mg/day in patients with prior clozapine exposure and 59.7 mg without prior exposure. Mean titration over 5.44 days to a dosage of 260 mg/day, lead to a mean dosage at discharge of 322 mg/day ?Sarika HEBERT, Peggy? A, Wagner? NG, et al: Rapid clozapine titration in patients with treatment refractory schizophrenia. Psychiatr Q 2016; 87(2):315-322. I spent minutes with the patient and/or on the patient floor today, greater than?50% of which was spent counseling/coordinating care. Reason for contiued inpatient stay Substantial Risk for: harm to self
[2021-08-19 19:29] VITALS: BP 144/82; PULSE 81; RESP 16; TEMP 36.5; O2SAT 98
[2021-08-19] MEDS: cloZAPine 25 MG TABLET 50 MG PO (21:09)
[2021-08-20 06:00] VITALS: BP 107/63; PULSE 83; RESP 18; TEMP 36.6; O2SAT 99
--- NOTE | 2021-08-20 18:09 | P.PNPSI_ITS ---
Subjective Subjective Date of Service: 08/20/21 Reason For Visit: Suicidal Interim History: Pacing, isolative, responding to internal stimuli at times. Attentive at times-watching TV, spoke to tw a few times when we passed in the [place]. Denies questions, concerns, symptoms. Thank you for asking me. Medication Compliance: Yes Side effects from medications: No Attending Groups: No Review of Systems Acute medical concerns: No Medical Review of Systems: unchanged Review of Systems Reports behavioral changes, Reports confusion and Reports memory loss Psychiatric: Reports anxiety, Reports behavioral changes, Reports confusion, Reports difficulty concentrating, Reports auditory hallucinations, Reports irritability, Reports anhedonia, Reports memory loss, Reports paranoia and Rep orts visual hallucinations Mental Status Exam Mental Status Exam Patient Appearance: Disheveled Patient Orientation: Person, Place, Time and Situation Level of Consciousness: Alert Patient Behavior: Guarded, Suspicious, Good Eye Contact and Poor Eye Contact Mood Description: Blunted Affect Description: Blunted Patient Cognition Impaired: No Ability to Follow Directions: Fair Speech Pattern: Spontaneous Speech Memory Description: Remote Impaired and Episodic Impaired Hallucinations: Auditory Delusions: Paranoid Ideation Thought Content: positive for Thought Blocking Judgement: Poor Diagnostics Vital Signs (24Hr): Vital Signs - 24 hr 08/19/21 19:29 08/20/21 06:00 Temperature 97.7 F 97.9 F Pulse Rate 81 83 Respiratory Rate 16 18 Blood Pressure 144/82 H 107/63 Pulse Oximetry 98 99 Labs Results: 08/15/21 07:58 08/09/21 18:43 Labs: Laboratory Results - last 48 hr 08/19/21 08:05 COVID-19 ([facility]) Negative COVID-19 Clin Com See Note Medications Medications Current Medications Acetaminophen (Acetaminophen 325 Mg Tablet) 650 mg PO Q6H PRN PRN Reason: Pain, Mild (Pain Scale 1-3) Al Hydroxide/Mg Hydroxide (Magnesium Hydrox/Alum Hydrox 30 Ml Oral.Susp) 30 ml PO Q6H PRN PRN Reason: Heartburn/Nausea Calcium Carbonate (Calcium Carbonate 750 Mg Tab.Chew) 750 mg PO Q4H PRN PRN Reason: Indigestion Last Admin: 08/06/21 19:35 Dose: 750 mg Documented by: Clozapine (Clozapine 25 Mg Tablet) 50 mg PO BEDTIME FIDEL Last Admin: 08/19/21 21:09 Dose: 50 mg Documented by: Diphenhydramine HCl (Diphenhydramine Hcl 25 Mg Tablet) 50 mg PO Q4H PRN PRN Reason: agitation Last Admin: 07/26/21 09:00 Dose: 50 mg Documented by: Hydroxyzine HCl (Hydroxyzine Hcl 25 Mg Tablet) 25 mg PO BEDTIME PRN PRN Reason: Anxiety Last Admin: 08/04/21 21:07 Dose: 25 mg Documented by: Magnesium Hydroxide (Milk Of Magnesia 30 Ml Oral.Susp) 30 ml PO DAILY PRN PRN Reason: Constipation Nicotine Polacrilex (Nicotine Polacrilex 2 Mg Gum) 2 mg BUCCAL Q2H PRN PRN Reason: Nicotine Cravings Trazodone HCl (Trazodone Hcl 50 Mg Tablet) 50 mg PO BEDTIME PRN PRN Reason: Insomnia Ziprasidone (Ziprasidone 20 Mg Capsule) 20 mg PO TID PRN PRN Reason: agitation Ziprasidone (Ziprasidone Mesylate 20 Mg Vial) 20 mg IM DAILY PRN PRN Reason: on Euceda; if refuses PO Allergies Allergies Allergy/AdvReac Type Severity Reaction Status Date / Time olanzapine [OLANZAPINE] Allergy Severe FACIAL Verified 04/06/21 10:20 SWELLING Assessment & Plan Assessment & Plan (1) Schizoaffective disorder: Status: Chronic Code(s): F25.9 - Schizoaffective disorder, unspecified Assessment and Plan: started meds few days ago - tolerating so far- maybe calmer due to it still pretty shut down (2) Starvation ketoacidosis: Status: Resolved Code(s): E87.2 - Acidosis Assessment and Plan: denies current plan for this (3) PTSD (post-traumatic stress disorder): Status: Suspected Code(s): F43.10 - Post-traumatic stress disorder, unspecified Assessment and Plan: Impression: Patient is a 35-year-old male with history of schizophrenia, paranoid type who presents for paranoid, persecutory delusions, in the face of going off medications, prompting pt to attempt suicide by starvation and water deprivation. While trying to starve himself to , and just days before this admission, patient also attempted to kill himself by overdosing on Tylenol; when this did not work he tried again at a higher dose. Pt now presents to from medical floor where he required fluid resuscitation,?electrolytes replenished and treatment for starvation ketoacidosis, hypernatremia and acute kidney injury.? Pt now medically cleared and transferred to psychiatric unit. ?Patient was recently discharged from the unit around 05/13/2021. HOspital course: Patient currently suffers from severe paranoid persecutory delusions that frequently direct him to harm himself in order to save his family from future torture.? Patient has no insight.? Currently refuses medications and remains on Section 12 B. he says he does not necessarily want to leave the hospital, nor does he want to stay but does not want to sign a CV worried that it will be unacceptable to his persecutors. -patient remains in severe mental anguish over what is the right thing to do, very worried about making the wrong decision which will aggravate his persecutors and therefor put his family in future jeopardy; patient eventually decided to sign a CV but then later signed a 3 day notice.? He agreed to take Clozaril but then was again ambivalent.? Patient remains willing to self-harm to the point of suicide based on paranoid delusions that he must do so in order to save his family from future torment. -over the weekend patient was screaming, out of control and required medication restraint 07/11 patient remains with joel paranoid, persecutory delusions, thoughts to starve himself to based on paranoid delusion, no insight and impaired judgment. -currently he is eating and drinking but only minimally 07/12 pt decided to take Clozaril 07/13:? Patient is tormented seems to have reached a boiling point and he agreed to take Clozaril and sign in 07/15- says he will try a new approach to his decision making; agrees to continue taking Clozaril.? Remains guarded, and with paranoid delusions 07/21 floridly psychotic with intense paranoid, persecutory delusions that are overwhelming patient into repeated unsafe thinking or behavior including suicide, and starvation and water deprivation.? Patient has no insight and does not believe that medications help at all; he goes back and forth about whether to take medications as he's very anxious about contradicting his persecutors whom he believes give him messages directing his behavior. 07/23 pt again decided to stop taking medications, a frequent decision emerging every few days as patient again feels that it's safer to listen to his persecutors (paranoid delusions) then it is to go against their edict and take medications. Over the past 2 weeks, only after lengthy discussions, would patient change his mind and go back to taking medications; however this reversion is not due to any moment of insight but rather a combination of emotional exhaustion and him trying to find a loophole in his persecutors edict to not take medications. -patient put in 3 day notice 07/24-07/28: sometimes withdrawn; sometimes agitated, yelling in anguished distress about being threatened by tormentors; intermittently taking medications 07/29 - rescinded 3 day notice -since then, he's agreed to take medications, though this is intermittent; taking medications however does not represent improved insight or judgment, but as patient explains, is only done because he has for the moment not concluded that They, his torementors, have specifically barred him from doing so. This makes medication management difficult since he is on Clozaril which has a narrow window for which one can safely start/stop this med. om -He continues to intermittently stop Eating and drinking in obedience to paranoid delusion with idea that he should either commit suicide or undergo some other torture; remains without insight; remains anguished. He volunteers that he has received direction on how to kill himself post discharge and he intermittently has plans to kill himself on the unit, though he has thus far been able to limit his actions towards this end. Patient believes he receives messages through various avenues, having thoughts implanted in his head or communications given through media or circumstance. Patient reports he wants to trust this medical technical writer and staff but is never sure whether or not medical technical writer/staff is part of a conspiracy to torture him. on 08/08: Patient exhibited bizarre, generating movements of primarily his upper torso; medical technical writer examined patient and this was not dystonia, akathisia and was not seizure activity but rather patient's own voluntary behavior done in obedience to direction from his imagined persecutor; pt later confirmed this. NMS ruled out -labs (afebrile, autonomic stable; LDH wnl; CPK elevated as expected). Clozapine induced myoclonus considered but again given patient's presentation and his own self reporting that these movements are guided by delusional thought, very unlikely. Patient told medical technical writer that since medications are being given to treat a mental illness, which he does not believe he has, he will no longer take medications -08/10required IM medication, chemical restraint for wild in unsafe behavior, hitting his head against the wall unable to be redirected 08/11 more calm; body movements not present; can advance to q5 and off 1:1 for now (discussed with staff who agree). 08/18 -pt restarted on Clozapine (on 08/17) -calm on unit, but not willing to enage in talk therapy; mostly pacing halls during day -Bizarre body movements remain resolved? -patient's movements voluntary and done in obedience to delusion 08/20-Coverage: Continue current plan ? Barrier to discharge:? Patient is floridly psychotic; he has no insight and currently suffers from paranoid, persecutory delusions, believing he needs to either kill himself or engage in behaviors that will result in , in order to fulfill his persecutors demands; if discharged before stable, patient will quickly decompensate and be at high risk for suicide; he requires locked unit, and likely a superintendent container terminal admission, to resolve symptoms with medication management.?BRENDA considered:? [employer]ed [employer] Layout Taper reviewed case with Dr. Mcleod and other team members and it was discussed whether or not Dilshad needs a longer term hospitalization such as [facility]. Patient recently revealed that over the days/weeks prior to this admission, in addition to trying to starve/dehydrate himself to , he tried to kill himself 2x by Tylenol overdose, making medical technical writer more aware of the extent of his unsafe behavior. Patient remains without any insight at all. He is fully overwhelmed by persecutory delusions. At this point it is becoming increasing difficult for medical technical writer to imagine a scenario where Dilshad is safe outside of a longer term commitment where he is court ordered to take medications. For while he has indeed benefited from Clozapine (improved mood, relief from emotional anguish and reprieve from being contacted by persecutors [delusions]) his illness keeps him from attributing that benefit to medication; rather he maintains that medications are placebos and his relief is due to some other cause; and thus, on his own, patient's illness renders him unable to remain adherent with medications. However, if Dilshad had an extended hospital stay and remained on medications for an extended period of months, he may experience his relief from torture? as a product of medications and thus achieve enough insight to remain on medications as an outpatient. [employer]ed [employer] Layout Taper will continue to discuss case with colleagues, but is coming to the conclusion that patient requires [facility] admission for his safety. PLAN: q5min checks (currently no unsafe behaviors) Court ordered involuntary commitment; court ordered substituted judgment/Euceda for medication Restarted CLOZARIL 25 MG Q.H.S., will titrate; cannot refuse; give IM Ziprasidone if refuses Ziprasidone 20mg IM if refuses Clozaril -Team agrees that patient requires [facility] container terminal admission and will apply to [facility] -scheduled clonazepam 0.25 mg b.i.d. PRN for anxiety Micromedex: 1)?Rapid titration in hospitalized patients: Day 1, 50 mg orally followed by 50 to 100 mg as needed every 6 hours (up to an additional 150 mg). Thereafter, may increase daily dosage in increments of 50 to 100 mg. Mean dosage on day 1 was 207 mg/day in patients with prior clozapine exposure and 59.7 mg without prior e xposure. Mean titration over 5.44 days to a dosage of 260 mg/day, lead to a mean dosage at discharge of 322 mg/day ?Sarika HEBERT, Peggy? A, Wagner? GEE, et al: Rapid clozapine titration in patients with treatment refractory schizophrenia. Psychiatr Q 2016; 87(2):315-322. I spent minutes with the patient and/or on the patient floor today, greater than?50% of which was spent counseling/coordinating care. Informed Consent: does not understand Reason for contiued inpatient stay Substantial Risk for: inability to function and rapid decompensation
[2021-08-20] MEDS: Ziprasidone Mesylate 20 MG VIAL IM (21:03)
--- NOTE | 2021-08-20 21:27 | PC.NURSE ---
PT refused PO Clozaril and unable to verbalize reason for refusal. IM Geodon given per order - pt cooperative.
[2021-08-21 06:00] VITALS: BP 122/67; PULSE 92; RESP 18; TEMP 36.6; O2SAT 99
--- NOTE | 2021-08-21 15:47 | P.PNPSI_ITS ---
Subjective Subjective Date of Service: 08/21/21 Reason For Visit: Suicidal Interim History: Visable yet distant. Minimal verbalization Refusal of Clozapine 07/21 with Geodon given Medication Compliance: Intermittent Side effects from medications: No Attending Groups: No Review of Systems Acute medical concerns: No Medical Review of Systems: unchanged Review of Systems Reports behavioral changes, Reports confusion and Reports memory loss Psychiatric: Reports anxiety, Reports behavioral changes, Reports confusion, Reports difficulty concentrating, Reports auditory hallucinations, Reports irritability, Reports anhedonia, Reports memory loss, Reports paranoia and Reports visual hallucinations Mental Status Exam Mental Status Exam Patient Appearance: Disheveled Patient Orientation: Person, Place, Time and Situation Level of Consciousness: Alert Patient Behavior: Guarded, Suspicious, Good Eye Contact and Poor Eye Contact Mood Description: Blunted Affect Description: Blunted Patient Cognition Impaired: No Ability to Follow Directions: Fair Speech Pattern: Spontaneous Speech Memory Description: Remote Impaired and Episodic Impaired Hallucinations: Auditory Delusions: Paranoid Ideation Thought Content: positive for Thought Blocking Judgement: Poor Diagnostics Vital Signs (24Hr): Vital Signs - 24 hr 08/21/21 06:00 Temperature 97.9 F Pulse Rate 92 Respiratory Rate 18 Blood Pressure 122/67 Pulse Oximetry 99 Labs Results: 08/15/21 07:58 08/09/21 18:43 Medications Medications Current Medications Acetaminophen (Acetaminophen 325 Mg Tablet) 650 mg PO Q6H PRN PRN Reason: Pain, Mild (Pain Scale 1-3) Al Hydroxide/Mg Hydroxide (Magnesium Hydrox/Alum Hydrox 30 Ml Oral.Susp) 30 ml PO Q6H PRN PRN Reason: Heartburn/Nausea Calcium Carbonate (Calcium Carbonate 750 Mg Tab.Chew) 750 mg PO Q4H PRN PRN Reason: Indigestion Last Admin: 08/06/21 19:35 Dose: 750 mg Documented by: Clozapine (Clozapine 25 Mg Tablet) 50 mg PO BEDTIME FIDEL Last Admin: 08/20/21 21:27 Dose: Not Given Documented by: Diphenhydramine HCl (Diphenhydramine Hcl 25 Mg Tablet) 50 mg PO Q4H PRN PRN Reason: agitation Last Admin: 07/26/21 09:00 Dose: 50 mg Documented by: Hydroxyzine HCl (Hydroxyzine Hcl 25 Mg Tablet) 25 mg PO BEDTIME PRN PRN Reason: Anxiety Last Admin: 08/04/21 21:07 Dose: 25 mg Documented by: Magnesium Hydroxide (Milk Of Magnesia 30 Ml Oral.Susp) 30 ml PO DAILY PRN PRN Reason: Constipation Nicotine Polacrilex (Nicotine Polacrilex 2 Mg Gum) 2 mg BUCCAL Q2H PRN PRN Reason: Nicotine Cravings Trazodone HCl (Trazodone Hcl 50 Mg Tablet) 50 mg PO BEDTIME PRN PRN Reason: Insomnia Ziprasidone (Ziprasidone 20 Mg Capsule) 20 mg PO TID PRN PRN Reason: agitation Ziprasidone (Ziprasidone Mesylate 20 Mg Vial) 20 mg IM DAILY PRN PRN Reason: on Euceda; if refuses PO Last Admin: 08/20/21 21:03 Dose: 20 mg Documented by: Allergies Allergies Allergy/AdvReac Type Severity Reaction Status Date / Time olanzapine [OLANZAPINE] Allergy Severe FACIAL Verified 04/06/21 10:20 SWELLING Assessment & Plan Assessment & Plan (1) Schizoaffective disorder: Status: Chronic Code(s): F25.9 - Schizoaffective disorder, unspecified Assessment and Plan: started meds few days ago - tolerating so far- maybe calmer due to it still pretty shut down (2) Starvation ketoacidosis: Status: Resolved Code(s): E87.2 - Acidosis Assessment and Plan: denies current plan for this (3) PTSD (post-traumatic stress disorder): Status: Suspected Code(s): F43.10 - Post-traumatic stress disorder, unspecified Assessment and Plan: Impression: Patient is a 35-year-old male with history of schizophrenia, paranoid type who presents for paranoid, persecutory delusions, in the face of going off medications, prompting pt to attempt suicide by starvation and water deprivation. While trying to starve himself to , and just days before this admission, patient also attempted to kill himself by overdosing on Tylenol; when this did not work he tried again at a higher dose. Pt now presents to [facility] from medical floor where he required fluid resuscitation,?electrolytes replenished and treatment for starvation ketoacidosis, hypernatremia and acute kidney injury.? Pt now medically cleared and transferred to psychiatric unit. ?Patient was recently discharged from the unit around 05/13/2021. HOspital course: Patient currently suffers from severe paranoid persecutory delusions that f requently direct him to harm himself in order to save his family from future torture.? Patient has no insight.? Currently refuses medications and remains on Section 12 [address]. he says he does not necessarily want to leave the hospital, nor does he want to stay but does not want to sign a CV worried that it will be unacceptable to his persecutors. -patient remains in severe mental anguish over what is the right thing to do, very worried about making the wrong decision which will aggravate his persecut ors and therefor put his family in future jeopardy; patient eventually decided to sign a CV but then later signed a 3 day notice.? He agreed to take Clozaril but then was again ambivalent.? Patient remains willing to self-harm to the point of suicide based on paranoid delusions that he must do so in order to save his family from future torment. -over the weekend patient was screaming, out of control and required medication restraint 07/11 patient remains with joel paranoid, persecutory delusions, thoughts to starve himself to based on paranoid delusion, no insight and impaired judgment. -currently he is eating and drinking but only minimally 07/12 pt decided to take Clozaril 07/13:? Patient is tormented seems to have reached a boiling point and he agreed to take Clozaril and sign in 07/15- says he will try a new approach to his decision making; agrees to continue taking Clozaril.? Remains guarded, and with paranoid delusions 07/21 floridly psychotic with intense paranoid, persecutory delusions that are overwhelming patient into repeated unsafe thinking or behavior including suic yasmeen, and starvation and water deprivation.? Patient has no insight and does not believe that medications help at all; he goes back and forth about whether to take medications as he's very anxious about contradicting his persecutors whom he believes give him messages directing his behavior. 07/23 pt again decided to stop taking medications, a frequent decision emerging every few days as patient again feels that it's safer to listen to his persecutors (paranoid delusions) then it is to go against their edict and take medications. Over the past 2 weeks, only after lengthy discussions, would patie nt change his mind and go back to taking medications; however this reversion is not due to any moment of insight but rather a combination of emotional exhaustion and him trying to find a loophole in his persecutors edict to not take medications. -patient put in 3 day notice 07/24-07/28: sometimes withdrawn; sometimes agitated, yelling in anguished distress about being threatened by tormentors; intermittently taking medications 07/29 - rescinded 3 day notice -since then, he's agreed to take medications, though this is intermittent; taking medications however does not represent improved insight or judgment, but as patient explains, is only done because he has for the moment not concluded that They, his torementors, have specifically barred him from doing so. This makes medication management difficult since he is on Clozaril which has a narrow window for which one can safely start/stop this med. om -He continues to intermittently stop Eating and drinking in obedience to paranoid delusion with idea that he should either commit suicide or undergo some other torture; remains without insight; remains anguished. He volunteers that he has received direction on how to kill himself post discharge and he intermittently has plans to kill himself on the unit, though he has thus far been able to limit his actions towards this end. Patient believes he receives messages through various avenues, having thoughts implanted in his head or communications given through media or circumstance. Patient reports he wants to trust this technical writer and editor and staff but is never sure whether or not technical writer and editor/staff is part of a conspiracy to torture him. on 08/08: Patient exhibited bizarre, generating movements of primarily his upper torso; technical writer and editor examined patient and this was not dystonia, akathisia and was not seizure activity but rather patient's own voluntary behavior done in obedience to direction from his imagined persecutor; pt later confirmed this. NMS ruled out -labs (afebrile, autonomic stable; LDH wnl; CPK elevated as expected). Clozapine induced myoclonus considered but again given patient's presentation and his own self reporting that these movements are guided by delusional thought, very unlikely. Patient told technical writer and editor that since medications are being given to treat a mental illness, which he does not believe he has, he will no longer take medications -08/10required IM medication, chemical restraint for wild in unsafe behavior, hitting his head against the wall unable to be redirected 08/11 more calm; body movements not present; can advance to q5 and off 1:1 for now (discussed with staff who agree). 08/18 -pt restarted on Clozapine (on 08/17) -calm on unit, but not willing to enage in talk therapy; mostly pacing halls during day -Bizarre body movements remain resolved? -patient's movements voluntary and done in obedience to delusion 08/20-Coverage: Continue current plan 08/21-Coverage: Continue current plan ? Barrier to discharge:? Patient is floridly psychotic; he has no insight and currently suffers from paranoid, persecutory delusions, believing he needs to either kill himself or engage in behaviors that will result in , in order to fulfill his persecutors demands; if discharged before stable, patient will quickly decompensate and be at high risk for suicide; he requires locked unit, and likely a longterm admission, to resolve symptoms with medication management.?BRENDA considered:? Casting Director reviewed case with Dr. Mcleod and other team members and it was discussed whether or not Dilshad needs a longer term hospitalization such as [facility]. Patient recently revealed that over the days/weeks prior to this admission, in addition to trying to starve/dehydrate himself to , he tried to kill himself 2x by Tylenol overdose, making technical writer and editor more aware of the extent of his unsafe behavior. Patient remains without any insight at all. He is fully overwhelmed by persecutory delusions. At this point it is becoming increasing difficult for technical writer and editor to imagine a scenario where Dilshad is safe outside of a longer term commitment where he is court ordered to take medications. For while he has indeed benefited from Clozapine (improved mood, relief from emotional anguish and reprieve from being contacted by persecutors [delusions]) his illness keeps him from attributing that benefit to medication; rather he maintains that medications are placebos and his relief is due to some other cause; and thus, on his own, patient's illness renders him unable to remain adherent with medications. However, if Dilshad had an extended hospital stay and remained on medications for an extended period of months, he may experience his relief from torture? as a product of medications and thus achieve enough insight to remain on medications as an outpatient. Casting Director will continue to discuss case with colleagues, but is coming to the conclusion that patient requires [facility] admission for his safety. 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 PRN for anxiety Micromedex: 1)?Rapid titration in hospitalized patients: Day 1, 50 mg orally followed by 50 to 100 mg as needed every 6 hours (up to an additional 150 mg). Thereafter, may increase daily dosage in increments of 50 to 100 mg. Mean dosage on day 1 was 207 mg/day in patients with prior clozapine exposure and 59.7 mg without prior exposure. Mean titration over 5.44 days to a dosage of 260 mg/day, lead to a mean dosage at discharge of 322 mg/day ?Sarika HEBERT, Peggy? A, Wagner? GEE, et al: Rapid clozapine titration in patients with treatment refractory s chizophrenia. Psychiatr Q 2016; 87(2):315-322. I spent minutes with the patient and/or on the patient floor today, greater than?50% of which was spent counseling/coordinating care. Informed Consent: does not understand Reason for contiued inpatient stay Substantial Risk for: harm to self, inability to function and rapid decompensation
[2021-08-21 20:47] VITALS: BP 133/76; PULSE 66; RESP 15; TEMP 36.3; O2SAT 99
[2021-08-21] MEDS: cloZAPine 25 MG TABLET 50 MG PO (20:55)
[2021-08-22 08:52] LABS: MANUAL DIFF FLAG NO
[2021-08-22 09:15] LABS: Basophils Percent Auto 0.4 % (0-2); Eosinophils Absolute Auto 0.4 X10*3/uL (0.0-0.4); Eosinophils Percent Auto 4.7 % (0-4); Hematocrit 44.1 % (42.0-52.0); Imm Gran Abs Auto 0.02 X10*3/uL (0.00-0.03); Imm Gran Pct Auto 0.3 % (0.0-0.4); Lymphocytes Absolute Auto 2.2 X10*3/uL (1.2-4.9); Lymphocytes Percent Auto 28.7 % (20-40); Mean Corpuscular Hemoglobin 29.9 pg (27.0-33.0); Mean Corpuscular Volume 87.8 fL (80.0-98.0); Mean Platelet Volume 10.3 fL (9.4-12.4); Monocytes Absolute Auto 0.6 X10*3/uL (0.1-1.2); Neutrophils Absolute Auto 4.3 x10*3/uL (2.0-8.3); Neutrophils Percent Auto 57.9 % (45-73); Platelet Count 256 X10*3/uL (160-400); Red Blood Count 5.02 X10*6/uL (4.60-5.80); White Blood Count 7.5 X10*3/uL (4.8-10.8)
[2021-08-22 09:49] LABS: Neut%MD 57.2 %; Neutrophils Absolute Auto 4.4 x10*3/uL (2.0-8.3); WBCANC 7.7 X10*3/uL
[2021-08-22 11:17] LABS: COVID-19 Test Negative (Negative); IDNOW Serial# 55D5AD1C
--- NOTE | 2021-08-22 11:28 | HO.PSYCHPN ---
Subjective Subjective Date of Service: 08/22/21 Reason For Visit: Suicidal Interim History: pt says he's alright and denies any complaints; denies med side-effects, denies any intentions of self harm. He says nothing much has changed for him. He is difficult to engage, not wanting to discuss symptoms. Patient askd how [employer] [facility] is going; learning that they want people to have covid vaccination he says he will get Covid vaccination and flue vaccination and has no questions about either. Mental Status Exam Mental Status Exam Narrative: pt is alert to self, time, and situation (though does not think he has mental illness); behavior is calm, pacing hallways; adequate eye contact; mood is alright and affect is constricted; thought process is goal oriented, linear; thought content is on [facility] application; otherwise guarded but alluding to continued perseveration on paranoid, persecutory delusions about being tortured; denies SI though typically intermittent SI as fulfillment of task assigned to him by persecutors; patient believes he receives messages through various avenues, having thoughts implanted in his head or communications given through media which he typically avoids. Denies [facility]. ?Patients insight and judgment are impaired Diagnostics Vital Signs (24Hr): Vital Signs - 24 hr 08/21/21 20:47 Temperature 97.3 F Pulse Rate 66 Respiratory Rate 15 Blood Pressure 133/76 Pulse Oximetry 99 Labs Results: 08/22/21 08:27 08/09/21 18:43 Labs: Laboratory Results - last 48 hr 08/22/21 08/22/21 08/22/21 08:27 08:27 10:45 WBC 7.5 RBC 5.02 Hgb 15.0 Hct 44.1 MCV 87.8 MCH 29.9 MCHC 34.0 RDW 13.0 Plt Count 256 MPV 10.3 Immature Gran % (Auto) 0.3 Neut % (Auto) 57.9 Lymph % (Auto) 28.7 [place] % (Auto) 8.0 Eos % (Auto) 4.7 H Baso % (Auto) 0.4 Lymph # (Auto) 2.2 [place] # (Auto) 0.6 Eos # (Auto) 0.4 Baso # (Auto) 0.0 Abs Immat Gran (auto) 0.02 Absolute Neuts (auto) 4.3 4.4 Absolute Nucleated RBC 0.000 Nucleated RBC % (auto) 0.0 COVID-19 ([facility]) Negative COVID-19 Clin Com See Note Medications Medications Current Medications Acetaminophen (Acetaminophen 325 Mg Tablet) 650 mg PO Q6H PRN PRN Reason: Pain, Mild (Pain Scale 1-3) Al Hydroxide/Mg Hydroxide (Magnesium Hydrox/Alum Hydrox 30 Ml Oral.Susp) 30 ml PO Q6H PRN PRN Reason: Heartburn/Nausea Calcium Carbonate (Calcium Carbonate 750 Mg Tab.Chew) 750 mg PO Q4H PRN PRN Reason: Indigestion Last Admin: 08/06/21 19:35 Dose: 750 mg Documented by: Clozapine (Clozapine 25 Mg Tablet) 50 mg PO BEDTIME FIDEL Last Admin: 08/21/21 20:55 Dose: 50 mg Documented by: Diphenhydramine HCl (Diphenhydramine Hcl 25 Mg Tablet) 50 mg PO Q4H PRN PRN Reason: agitation Last Admin: 07/26/21 09:00 Dose: 50 mg Documented by: Hydroxyzine HCl (Hydroxyzine Hcl 25 Mg Tablet) 25 mg PO BEDTIME PRN PRN Reason: Anxiety Last Admin: 08/04/21 21:07 Dose: 25 mg Documented by: Magnesium Hydroxide (Milk Of Magnesia 30 Ml Oral.Susp) 30 ml PO DAILY PRN PRN Reason: Constipation Nicotine Polacrilex (Nicotine Polacrilex 2 Mg Gum) 2 mg BUCCAL Q2H PRN PRN Reason: Nicotine Cravings Trazodone HCl (Trazodone Hcl 50 Mg Tablet) 50 mg PO BEDTIME PRN PRN Reason: Insomnia Ziprasidone (Ziprasidone 20 Mg Capsule) 20 mg PO TID PRN PRN Reason: agitation Ziprasidone (Ziprasidone Mesylate 20 Mg Vial) 20 mg IM DAILY PRN PRN Reason: on Euceda; if refuses PO Last Admin: 08/20/21 21:03 Dose: 20 mg Documented by: Allergies Allergies Allergy/AdvReac Type Severity Reaction Status Date / Time olanzapine [OLANZAPINE] Allergy Severe FACIAL Verified 04/06/21 10:20 SWELLING Assessment & Plan Assessment & Plan (1) Schizoaffective disorder: Status: Chronic Code(s): F25.9 - Schizoaffective disorder, unspecified Assessment and Plan: started meds few days ago - tolerating so far- maybe calmer due to it still pretty shut down (2) Starvation ketoacidosis: Status: Resolved Code(s): E87.2 - Acidosis Assessment and Plan: denies current plan for this (3) PTSD (post-traumatic stress disorder): Status: Suspected Code(s): F43.10 - Post-traumatic stress disorder, unspecified Assessment and Plan: Impression: Patient is a 35-year-old male with history of schizophrenia, paranoid type who presents for paranoid, persecutory delusions, in the face of going off medications, prompting pt to attempt suicide by starvation and water deprivation. While trying to starve himself to , and just days before this admission, patient also attempted to kill himself by overdosing on Tylenol; when this did not work he tried again at a higher dose. Pt now presents to from medical floor where he required fluid resuscitation,?electrolytes replenished and treatment for starvation ketoacidosis, hypernatremia and acute kidney injury.? Pt now medically cleared and transferred to psychiatric unit. ?Patient was recently discharged from the unit around 05/13/2021. HOspital course: Patient currently suffers from severe paranoid persecutory delusions that frequently direct him to harm himself in order to save his family from future torture.? Patient has no insight.? Currently refuses medications and remains on Section 12 B. he says he does not necessarily want to leave the hospital, nor does he want to stay but does not want to sign a CV worried that it will be unacceptable to his persecutors. -patient remains in severe mental anguish over what is the right thing to do, very worried about making the wrong decision which will aggravate his persecutors and therefor put his family in future jeopardy; patient eventually decided to sign a CV but then later signed a 3 day notice.? He agreed to take Clozaril but then was again ambivalent.? Patient remains willing to self-harm to the point of suicide based on paranoid delusions that he must do so in order to save his family from future torment. -over the weekend patient was screaming, out of control and required medication restraint 07/11 patient remains with joel paranoid, persecutory delusions, thoughts to starve himself to based on paranoid delusion, no insight and impaired judgment. -currently he is eating and drinking but only minimally 07/12 pt decided to take Clozaril 07/13:? Patient is tormented seems to have reached a boiling point and he agreed to take Clozaril and sign in 07/15- says he will try a new approach to his decision making; agrees to continue taking Clozaril.? Remains guarded, and with paranoid delusions 07/21 floridly psychotic with intense paranoid, persecutory delusions that are overwhelming patient into repeated unsafe thinking or behavior including suicide, and starvation and water deprivation.? Patient has no insight and does not believe that medications help at all; he goes back and forth about whether to take medications as he's very anxious about contradicting his persecutors whom he believes give him messages directing his behavior. 07/23 pt again decided to stop taking medications, a frequent decision emerging every few days as patient again feels that it's safer to listen to his persecutors (paranoid delusions) then it is to go against their edict and take medications. Over the past 2 weeks, only after lengthy discussions, would patient change his mind and go back to taking medications; however this reversion is not due to any moment of insight but rather a combination of emotional exhaustion and him trying to find a loophole in his persecutors edict to not take medications. -patient put in 3 day notice 07/24-07/28: sometimes withdrawn; sometimes agitated, yelling in anguished distress about being threatened by tormentors; intermittently taking medications 07/29 - rescinded 3 day notice -since then, he's agreed to take medications, though this is intermittent; taking medications however does not represent improved insight or judgment, but as patient explains, is only done because he has for the moment not concluded that They, his torementors, have specifically barred him from doing so. This makes medication management difficult since he is on Clozaril which has a narrow window for which one can safely start/stop this med. om -He continues to intermittently stop Eating and drinking in obedience to paranoid delusion with idea that he should either commit suicide or undergo some other torture; remains without insight; remains anguished. He volunteers that he has received direction on how to kill himself post discharge and he intermittently has plans to kill himself on the unit, though he has thus far been able to limit his actions towards this end. Patient believes he receives messages through various avenues, having thoughts implanted in his head or communications given through media or circumstance. Patient reports he wants to trust this telegraphic typewriter repairer and staff but is never sure whether or not telegraphic typewriter repairer/staff is part of a conspiracy to torture him. on 08/08: Patient exhibited bizarre, generating movements of primarily his upper torso; telegraphic typewriter repairer examined patient and this was not dystonia, akathisia and was not seizure activity but rather patient's own voluntary behavior done in obedience to direction from his imagined persecutor; pt later confirmed this. NMS ruled out -labs (afebrile, autonomic stable; LDH wnl; CPK elevated as expected). Clozapine induced myoclonus considered but again given patient's presentation and his own self reporting that these movements are guided by delusional thought, very unlikely. Patient told telegraphic typewriter repairer that since medications are being given to treat a mental illness, which he does not believe he has, he will no longer take medications -08/10required IM medication, chemical restraint for wild in unsafe behavior, hitting his head against the wall unable to be redirected 08/11 more calm; body movements not present; can advance to q5 and off 1:1 for now (discussed with staff who agree). 08/18 -pt restarted on Clozapine (on 08/17) -calm on unit, but not willing to enage in talk therapy; mostly pacing halls during day -Bizarre body movements remain resolved? -patient's movements voluntary and done in obedience to delusion ? Barrier to discharge:? Patient is floridly psychotic; he has no insight and currently suffers from paranoid, persecutory delusions, believing he needs to either kill himself or engage in behaviors that will result in , in order to fulfill his persecutors demands; if discharged before stable, patient will quickly decompensate and be at high risk for suicide; he requires locked unit, and likely a retirement admission, to resolve symptoms with medication management.?BRENDA considered:? Invoicing Machine Operator reviewed case with Dr. Mcleod and other team members and it was discussed whether or not Dilshad needs a longer term hospitalization such as [facility]. Patient recently revealed that over the days/weeks prior to this admission, in addition to trying to starve/dehydrate himself to , he tried to kill himself 2x by Tylenol overdose, making telegraphic typewriter repairer more aware of the extent of his unsafe behavior. Patient remains without any insight at all. He is fully overwhelmed by persecutory delusions. At this point it is becoming increasing difficult for telegraphic typewriter repairer to imagine a scenario where Dilshad is safe outside of a longer term commitment where he is court ordered to take medications. For while he has indeed benefited from Clozapine (improved mood, relief from emotional anguish and reprieve from being contacted by persecutors [delusions]) his illness keeps him from attributing that benefit to medication; rather he maintains that medications are placebos and his relief is due to some other cause; and thus, on his own, patient's illness renders him unable to remain adherent with medications. However, if Dilshad had an extended hospital stay and remained on medications for an extended period of months, he may experience his relief from torture? as a product of medications and thus achieve enough insight to remain on medications as an outpatient. Invoicing Machine Operator will continue to discuss case with colleagues, but is coming to the conclusion that patient requires [facility] admission for his safety. PLAN: q5min checks (currently no unsafe behaviors) Court ordered involuntary commitment; court ordered substituted judgment/[facility] for medication Titrate CLOZARIL 62.6MG Q.H.S (starting 08/24)., will titrate; cannot refuse; give IM Ziprasidone if refuses Ziprasidone 20mg IM if refuses Clozaril -Team agrees that patient requires retirement admission and will apply to [facility] -scheduled clonazepam 0.25 mg b.i.d. PRN for anxiety Micromedex: 1)?Rapid titration in hospitalized patients: Day 1, 50 mg orally followed by 50 to 100 mg as needed every 6 hours (up to an additional 150 mg). Thereafter, may increase daily dosage in increments of 50 to 100 mg. Mean dosage on day 1 was 207 mg/day in patients with prior clozapine exposure and 59.7 mg without prior exposure. Mean titration over 5.44 days to a dosage of 260 mg/day, lead to a mean dosage at discharge of 322 mg/day ?Sarika HEBERT, Peggy? A, Wagner? NG, et al: Rapid clozapine titration in patients with treatment refractory schizophrenia. Psychiatr Q 2016; 87(2):315-322. I spent minutes with the patient and/or on the patient floor today, greater than?50% of which was spent counseling/coordinating care. Reason for contiued inpatient stay Substantial Risk for: harm to self
[2021-08-22 19:50] VITALS: BP 111/59; PULSE 73; TEMP 36.8
[2021-08-22] MEDS: cloZAPine 25 MG TABLET 50 MG PO (20:51)
[2021-08-23 06:00] VITALS: BP 97/54; PULSE 84; RESP 18; TEMP 36.3; O2SAT 96
--- NOTE | 2021-08-23 11:31 | P.PNPSI_ITS ---
Subjective Subjective Date of Service: 08/23/21 Reason For Visit: Suicidal Interim History: Patient remains difficult to engage and will only superficially interact with radio script writer. He says he has fine but that nothing has changed. Patient's sister visited yesterday and for moment patient's affect brightened up any said he had a good visit. Patient denies any complaints or medication side effects. Does not want to discuss aspects of his illness. Mental Status Exam Mental Status Exam Narrative: pt is alert to self, time, and situation (though does not think he has mental illness); appearance is appropriate, clean shaven; behavior is calm, pacing hallways; adequate eye contact; mood is fine and affect is constricted; thought process is goal oriented, linear; thought content is on [employer] application; otherwise guarded but alluding to continued perseveration on paranoid, persecutory delusions about being tortured; denies SI though typically intermittent SI as fulfillment of task assigned to him by persecutors; patient believes he receives messages through various avenues, having thoughts implanted in his head or communications given through media which he typically avoids. Denies AvH. ?Patients insight and judgment are impaired Diagnostics Vital Signs (24Hr): Vital Signs - 24 hr 08/22/21 19:50 08/23/21 06:00 Temperature 98.3 F 97.4 F Pulse Rate 73 84 Respiratory Rate 18 Blood Pressure 111/59 L 97/54 L Pulse Oximetry 96 Labs Results: 08/22/21 08:27 08/09/21 18:43 Labs: Laboratory Results - last 48 hr 08/22/21 08/22/21 08/22/21 08:27 08:27 10:45 WBC 7.5 RBC 5.02 Hgb 15.0 Hct 44.1 MCV 87.8 MCH 29.9 MCHC 34.0 RDW 13.0 Plt Count 256 MPV 10.3 Immature Gran % (Auto) 0.3 Neut % (Auto) 57.9 Lymph % (Auto) 28.7 Sharp % (Auto) 8.0 Eos % (Auto) 4.7 H Baso % (Auto) 0.4 Lymph # (Auto) 2.2 Sharp # (Auto) 0.6 Eos # (Auto) 0.4 Baso # (Auto) 0.0 Abs Immat Gran (auto) 0.02 Absolute Neuts (auto) 4.3 4.4 Absolute Nucleated RBC 0.000 Nucleated RBC % (auto) 0.0 COVID-19 ([facility]) Negative COVID-19 Clin Com See Note Medications Medications Current Medications Acetaminophen (Acetaminophen 325 Mg Tablet) 650 mg PO Q6H PRN PRN Reason: Pain, Mild (Pain Scale 1-3) Al Hydroxide/Mg Hydroxide (Magnesium Hydrox/Alum Hydrox 30 Ml Oral.Susp) 30 ml PO Q6H PRN PRN Reason: Heartburn/Nausea Calcium Carbonate (Calcium Carbonate 750 Mg Tab.Chew) 750 mg PO Q4H PRN PRN Reason: Indigestion Last Admin: 08/06/21 19:35 Dose: 750 mg Documented by: Clozapine (Clozapine 25 Mg Tablet) 62.5 mg PO BEDTIME FIDEL Diphenhydramine HCl (Diphenhydramine Hcl 25 Mg Tablet) 50 mg PO Q4H PRN PRN Reason: agitation Last Admin: 07/26/21 09:00 Dose: 50 mg Documented by: Hydroxyzine HCl (Hydroxyzine Hcl 25 Mg Tablet) 25 mg PO BEDTIME PRN PRN Reason: Anxiety Last Admin: 08/04/21 21:07 Dose: 25 mg Documented by: Magnesium Hydroxide (Milk Of Magnesia 30 Ml Oral.Susp) 30 ml PO DAILY PRN PRN Reason: Constipation Nicotine Polacrilex (Nicotine Polacrilex 2 Mg Gum) 2 mg BUCCAL Q2H PRN PRN Reason: Nicotine Cravings Trazodone HCl (Trazodone Hcl 50 Mg Tablet) 50 mg PO BEDTIME PRN PRN Reason: Insomnia Ziprasidone (Ziprasidone 20 Mg Capsule) 20 mg PO TID PRN PRN Reason: agitation Ziprasidone (Ziprasidone Mesylate 20 Mg Vial) 20 mg IM DAILY PRN PRN Reason: on Euceda; if refuses PO Last Admin: 08/20/21 21:03 Dose: 20 mg Documented by: Allergies Allergies Allergy/AdvReac Type Severity Reaction Status Date / Time olanzapine [OLANZAPINE] Allergy Severe FACIAL Verified 04/06/21 10:20 SWELLING Assessment & Plan Assessment & Plan (1) Schizoaffective disorder: Status: Chronic Code(s): F25.9 - Schizoaffective disorder, unspecified Assessment and Plan: started meds few days ago - tolerating so far- maybe calmer due to it still pretty shut down (2) Starvation ketoacidosis: Status: Resolved Code(s): E87.2 - Acidosis Assessment and Plan: denies current plan for this (3) PTSD (post-traumatic stress disorder): Status: Suspected Code(s): F43.10 - Post-traumatic stress disorder, unspecified Assessment and Plan: Impression: Patient is a 35-year-old male with history of schizophrenia, paranoid type who presents for paranoid, persecutory delusions, in the face of going off medications, prompting pt to attempt suicide by starvation and water deprivation. While trying to starve himself to , and just days before this admission, patient also attempted to kill himself by overdosing on Tylenol; when this did not work he tried again at a higher dose. Pt now presents to from medical floor where he required fluid resuscitation,?electrolytes replenished and treatment for starvation ketoacidosis, hypernatremia and acute kidney injury.? Pt now medically cleared and transferred to psychiatric unit. ?Patient was recently discharged from the unit around 05/13/2021. HOspital course: Patient currently suffers from severe paranoid persecutory delusions that frequently direct him to harm himself in order to save his family from future to rture.? Patient has no insight.? Currently refuses medications and remains on [place] 12 [address]. he says he does not necessarily want to leave the hospital, nor does he want to stay but does not want to sign a CV worried that it will be unacceptable to his persecutors. -patient remains in severe mental anguish over what is the right thing to do, very worried about making the wrong decision which will aggravate his persecutors and therefor put his family in future jeopardy; patient eventually decided to sign a CV but then later signed a 3 day notice.? He agreed to take Clozaril but then was again ambivalent.? Patient remains willing to self-harm to the point of suicide based on paranoid delusions that he must do so in order to save his family from future torment. -over the weekend patient was screaming, out of control and required medication restraint 07/11 patient remains with joel paranoid, persecutory delusions, thoughts to starve himself to based on paranoid delusion, no insight and impaired judgment. -currently he is eating and drinking but only minimally 07/12 pt decided to take Clozaril 07/13:? Patient is tormented seems to have reached a boiling point and he agreed to take Clozaril and sign in 07/15- says he will try a new approach to his decision making; agrees to continu e taking Clozaril.? Remains guarded, and with paranoid delusions 07/21 floridly psychotic with intense paranoid, persecutory delusions that are overwhelming patient into repeated unsafe thinking or behavior including suicide, and starvation and water deprivation.? Patient has no insight and does not believe that medications help at all; he goes back and forth about whether to take medications as he's very anxious about contradicting his persecutors whom he believes give him messages directing his behavior. 07/23 pt again decided to stop taking medications, a frequent decision emerging every few days as patient again feels that it's safer to listen to his persecutors (paranoid delusions) then it is to go against their edict and take medications. Over the past 2 weeks, only after lengthy discussions, would patient change his mind and go back to taking medications; however this reversion is not due to any moment of insight but rather a combination of emotional exhaustion and him trying to find a loophole in his persecutors edict to not take medications. -patient put in 3 day notice 07/24-07/28: sometimes withdrawn; sometimes agitated, yelling in anguished distress about being threatened by tormentors; intermittently taking medications 07/29 - rescinded 3 day notice -since then, he's agreed to take medications, though this is intermittent; taking medications however does not represent improved insight or judgment, but as patient explains, is only done because he has for the moment not concluded that They, his torementors, have specifically barred him from doing so. This makes medication management difficult since he is on Clozaril which has a narrow window for which one can safely start/stop this med. om -He continues to intermittently stop Eating and drinking in obedience to paranoid delusion with idea that he should either commit suicide or undergo some other torture; remains without insight; remains anguished. He volunteers that he has received direction on how to kill himself post discharge and he intermittently has plans to kill himself on the unit, though he has thus far been able to limit his actions towards this end. Patient believes he receives messages through various avenues, having thoughts implanted in his head or communications given through media or circumstance. Patient reports he wants to trust this radio script writer and staff but is never sure whether or not radio script writer/staff is part of a conspiracy to torture him. on 08/08: Patient exhibited bizarre, generating movements of primarily his upper torso; radio script writer examined patient and this was not dystonia, akathisia and was not seizure activity but rather patient's own voluntary behavior done in obedience to direction from his imagined persecutor; pt later confirmed this. NMS ruled out -labs (afebrile, autonomic stable; LDH wnl; CPK elevated as expected). Clozapine induced myoclonus considered but again given patient's presentation and his own self reporting that these movements are guided by delusional thought, very unlikely. Patient told radio script writer that since medications are being given to treat a mental illness, which he does not believe he has, he will no longer take medications -08/10required IM medication, chemical restraint for wild in unsafe behavior, hitting his head against the wall unable to be redirected 08/11 more calm; body movements not present; can advance to q5 and off 1:1 for now (discussed with staff who agree). 08/18 -pt restarted on Clozapine (on 08/17) -calm on unit, but not willing to enage in talk therapy; mostly pacing halls during day -Bizarre body movements remain resolved? -patient's movements voluntary and done in obedience to delusion 08/23: Patient remains difficult to engage in is only superficially interactive with radio script writer which has been the case since a few days before court. Will continue to titrate Clozaril. pt denies med side-effects ? Barrier to discharge:? Patient is floridly psychotic; he has no insight and currently suffers from paranoid, persecutory delusions, believing he needs to e ither kill himself or engage in behaviors that will result in , in order to fulfill his persecutors demands; if discharged before stable, patient will quickly decompensate and be at high risk for suicide; he requires locked unit, and likely a intermodal truck driver admission, to resolve symptoms with medication management.?BRENDA considered:? Family Nurse Practitioner reviewed case with Dr. Mcleod and other team members and it was discussed whether or not Dilshad needs a longer term hospitalization such as [facility]. Patient recently revealed that over the days/weeks prior to this admission, in addition to trying to starve/dehydrate himself to , he tried to kill himself 2x by Tylenol overdose, making radio script writer more aware of the extent of his unsafe behavior. Patient remains without any insight at all. He is fully overwhelmed by persecutory delusions. At this point it is becoming increasing difficult for radio script writer to imagine a scenario where Dilshad is safe outside of a longer term commitment where he is court ordered to take medications. For while he has indeed benefited from Clozapine (improved mood, relief from emotional anguish and reprieve from being contacted by persecutors [delusions]) his illness keeps him from attributing that benefit to medication; rather he maintains that medications are placebos and his relief is due to some other cause; and thus, on his own, patient's illness renders him unable to remain adherent with medications. However, if Dilshad had an extended hospital stay and remained on medications for an extended period of months, he may experience his relief from torture? as a product of medications and thus achieve enough insight to remain on medications as an outpatient. Family Nurse Practitioner will continue to discuss case with colleagues, but is coming to the conclusion that patient requires [facility] admission for his safety. PLAN: q5min checks (currently no unsafe behaviors) Court ordered involuntary commitment; court ordered substituted judgment/Euceda for medication Titrate CLOZARIL 62.6MG Q.H.S (starting 08/24)., will titrate; cannot refuse; give IM Ziprasidone if refuses Ziprasidone 20mg IM if refuses Clozaril -Team agrees that patient requires intermodal truck driver admission and will apply to [facility] -scheduled clonazepam 0.25 mg b.i.d. PRN for anxiety Micromedex: 1)?Rapid titration in hospitalized patients: Day 1, 50 mg orally followed by 50 to 100 mg as needed every 6 hours (up to an additional 150 mg). Thereafter, may increase daily dosage in increments of 50 to 100 mg. Mean dosage on day 1 was 207 mg/day in patients with prior clozapine exposure and 59.7 mg without prior exposure. Mean titration over 5.44 days to a dosage of 260 mg/day, lead to a mean dosage at discharge of 322 mg/day ?Marcelyrjohn CA, Peggy? A, Sagrolo? NG, et al: Rapid clozapine titration in patients with treatment refractory schizophrenia. Psychiatr Q 2016; 87(2):315-322. I spent minutes with the patient and/or on the patient floor today, greater than?50% of which was spent counseling/coordinating care. Reason for contiued inpatient stay Substantial Risk for: harm to self
[2021-08-23 20:10] VITALS: BP 103/57; PULSE 66; TEMP 36.3
[2021-08-23] MEDS: cloZAPine 25 MG TABLET 62.5 MG PO (20:36)
[2021-08-24 06:00] VITALS: BP 116/67; PULSE 76; RESP 18; TEMP 37.3; O2SAT 96
--- NOTE | 2021-08-24 10:33 | HO.PSYCHPN ---
Subjective Subjective Date of Service: 08/24/21 Reason For Visit: Suicidal Interim History: pt remains stoic and reticent. Patient was willing to tell auto service writer that he continues to struggle with all the same stuff that he's been dealing with throughout this admission, however, when asked about specifics he says he does not want to discuss. merry go round operator mentioned that pt has been watching TV more which he's typically avoided to which pt said i dont' want to talk about it if that's ok. He was willing to say he has no plans or intentions to self harm on the unit. discussed covid vaccination; pt said he did not have any questions or concerns about it and will take it; auto service writer reviewed risks/side-effects/benefits but pt said he's has not questions. Mental Status Exam Mental Status Exam Narrative: pt is alert to self, time, and situation (though does not think he has mental illness); appearance is appropriate, clean shaven; behavior is guarded and reticent, though calm, mostly keeping to himself and pacing hallways; adequate eye contact; mood is fine and affect is constricted; thought process is goal oriented; thought content is on Vibra; otherwise guarded but alluding to continued perseveration on paranoid, persecutory delusions about being tortured; denies SI though typically intermittent SI as fulfillment of task assigned to him by persecutors; patient believes he receives messages through various avenues, having thoughts implanted in his head or communications given through media which he typically avoids. Denies [facility]H. ?Patients insight and judgment are impaired Diagnostics Vital Signs (24Hr): Vital Signs - 24 hr 08/23/21 20:10 08/24/21 06:00 Temperature 97.4 F 99.1 F Pulse Rate 66 76 Respiratory Rate 18 Blood Pressure 103/57 L 116/67 Pulse Oximetry 96 Labs Results: 08/22/21 08:27 08/09/21 18:43 Labs: Laboratory Results - last 48 hr 08/22/21 10:45 COVID-19 ([facility]) Negative COVID-19 Clin Com See Note Medications Medications Current Medications Acetaminophen (Acetaminophen 325 Mg Tablet) 650 mg PO Q6H PRN PRN Reason: Pain, Mild (Pain Scale 1-3) Al Hydroxide/Mg Hydroxide (Magnesium Hydrox/Alum Hydrox 30 Ml Oral.Susp) 30 ml PO Q6H PRN PRN Reason: Heartburn/Nausea Calcium Carbonate (Calcium Carbonate 750 Mg Tab.Chew) 750 mg PO Q4H PRN PRN Reason: Indigestion Last Admin: 08/06/21 19:35 Dose: 750 mg Documented by: Clozapine (Clozapine 25 Mg Tablet) 62.5 mg PO BEDTIME FIDEL Last Admin: 08/23/21 20:36 Dose: 62.5 mg Documented by: Diphenhydramine HCl (Diphenhydramine Hcl 25 Mg Tablet) 50 mg PO Q4H PRN PRN Reason: agitation Last Admin: 07/26/21 09:00 Dose: 50 mg Documented by: Hydroxyzine HCl (Hydroxyzine Hcl 25 Mg Tablet) 25 mg PO BEDTIME PRN PRN Reason: Anxiety Last Admin: 08/04/21 21:07 Dose: 25 mg Documented by: Magnesium Hydroxide (Milk Of Magnesia 30 Ml Oral.Susp) 30 ml PO DAILY PRN PRN Reason: Constipation Nicotine Polacrilex (Nicotine Polacrilex 2 Mg Gum) 2 mg BUCCAL Q2H PRN PRN Reason: Nicotine Cravings Trazodone HCl (Trazodone Hcl 50 Mg Tablet) 50 mg PO BEDTIME PRN PRN Reason: Insomnia Ziprasidone (Ziprasidone 20 Mg Capsule) 20 mg PO TID PRN PRN Reason: agitation Ziprasidone (Ziprasidone Mesylate 20 Mg Vial) 20 mg IM DAILY PRN PRN Reason: on Euceda; if refuses PO Last Admin: 08/20/21 21:03 Dose: 20 mg Documented by: Allergies Allergies Allergy/AdvReac Type Severity Reaction Status Date / Time olanzapine [OLANZAPINE] Allergy Severe FACIAL Verified 04/06/21 10:20 SWELLING Assessment & Plan Assessment & Plan (1) Schizoaffective disorder: Status: Chronic Code(s): F25.9 - Schizoaffective disorder, unspecified Assessment and Plan: started meds few days ago - tolerating so far- maybe calmer due to it still pretty shut down (2) Starvation ketoacidosis: Status: Resolved Code(s): E87.2 - Acidosis Assessment and Plan: denies current plan for this (3) PTSD (post-traumatic stress disorder): Status: Suspected Code(s): F43.10 - Post-traumatic stress disorder, unspecified Assessment and Plan: Impression: Patient is a 35-year-old male with history of schizophrenia, paranoid type who presents for paranoid, persecutory delusions, in the face of going off medications, prompting pt to attempt suicide by starvation and water deprivation. While trying to starve himself to , and just days before this admission, patient also attempted to kill himself by overdosing on Tylenol; when this did not work he tried again at a higher dose. Pt now presents to from medical floor where he required fluid resuscitation,?electrolytes replenished and treatment for starvation ketoacidosis, hypernatremia and acute kidney injury.? Pt now medically cleared and transferred to psychiatric unit. ?Patient was recently discharged from the unit around 05/13/2021. HOspital course: Patient currently suffers from severe paranoid persecutory delusions that frequently direct him to harm himself in order to save his family from future torture.? Patient has no insight.? Currently refuses medications and remains on Section 12 B. he says he does not necessarily want to leave the hospital, nor does he want to stay but does not want to sign a CV worried that it will be unacceptable to his persecutors. -patient remains in severe mental anguish over what is the right thing to do, very worried about making the wrong decision which will aggravate his persecutors and therefor put his family in future jeopardy; patient eventually decided to sign a CV but then later signed a 3 day notice.? He agreed to take Clozaril but then was again ambivalent.? Patient remains willing to self-harm to the point of suicide based on paranoid delusions that he must do so in order to save his family from future torment. -over the weekend patient was screaming, out of control and required medication restraint 07/11 patient remains with joel paranoid, persecutory delusions, thoughts to starve himself to based on paranoid delusion, no insight and impaired judgment. -currently he is eating and drinking but only minimally 07/12 pt decided to take Clozaril 07/13:? Patient is tormented seems to have reached a boiling point and he agreed to take Clozaril and sign in 07/15- says he will try a new approach to his decision making; agrees to continue taking Clozaril.? Remains guarded, and with paranoid delusions 07/21 floridly psychotic with intense paranoid, persecutory delusions that are overwhelming patient into repeated unsafe thinking or behavior including suicide, and starvation and water deprivation.? Patient has no insight and does not believe that medications help at all; he goes back and forth about whether to take medications as he's very anxious about contradicting his persecutors whom he believes give him messages directing his behavior. 07/23 pt again decided to stop taking medications, a frequent decision emerging every few days as patient again feels that it's safer to listen to his persecutors (paranoid delusions) then it is to go against their edict and take medications. Over the past 2 weeks, only after lengthy discussions, would patient change his mind and go back to taking medications; however this reversion is not due to any moment of insight but rather a combination of emotional exhaustion and him trying to find a loophole in his persecutors edict to not take medications. -patient put in 3 day notice 07/24-07/28: sometimes withdrawn; sometimes agitated, yelling in anguished distress about being threatened by tormentors; intermittently taking medications 07/29 - rescinded 3 day notice -since then, he's agreed to take medications, though this is intermittent; taking medications however does not represent improved insight or judgment, but as patient explains, is only done because he has for the moment not concluded that They, his torementors, have specifically barred him from doing so. This makes medication management difficult since he is on Clozaril which has a narrow window for which one can safely start/stop this med. om -He continues to intermittently stop Eating and drinking in obedience to paranoid delusion with idea that he should either commit suicide or undergo some other torture; remains without insight; remains anguished. He volunteers that he has received direction on how to kill himself post discharge and he intermittently has plans to kill himself on the unit, though he has thus far been able to limit his actions towards this end. Patient believes he receives messages through various avenues, having thoughts implanted in his head or communications given through media or circumstance. Patient reports he wants to trust this auto service writer and staff but is never sure whether or not auto service writer/staff is part of a conspiracy to torture him. on 12/6: Patient exhibited bizarre, generating movements of primarily his upper torso; auto service writer examined patient and this was not dystonia, akathisia and was not seizure activity but rather patient's own voluntary behavior done in obedience to direction from his imagined persecutor; pt later confirmed this. NMS ruled out -labs (afebrile, autonomic stable; LDH wnl; CPK elevated as expected). Clozapine induced myoclonus considered but again given patient's presentation and his own self reporting that these movements are guided by delusional thought, very unlikely. Patient told auto service writer that since medications are being given to treat a mental illness, which he does not believe he has, he will no longer take medications -08/10required IM medication, chemical restraint for wild in unsafe behavior, hitting his head against the wall unable to be redirected 08/11 more calm; body movements not present; can advance to q5 and off 1:1 for now (discussed with staff who agree). 08/18 -pt restarted on Clozapine (on 08/17) -calm on unit, but not willing to enage in talk therapy; mostly pacing halls during day -Bizarre body movements remain resolved? -patient's movements voluntary and done in obedience to delusion 08/23: Patient remains difficult to engage in is only superficially interactive with auto service writer which has been the case since a few days before court. Will continue to titrate Clozaril. pt denies med side-effects -pt agreed to Covid vaccination; he was not interested in hearing about risks/side-effects though auto service writer discussed anyway; he asked if he could get Flu vaccination and nursing will review to make sure he did not already get. ? Barrier to discharge:? Patient is floridly psychotic; he has no insight and currently suffers from paranoid, persecutory delusions, believing he needs to either kill himself or engage in behaviors that will result in , in order to fulfill his persecutors demands; if discharged before stable, patient will quickly decompensate and be at high risk for suicide; he requires locked unit, and likely a assisted admission, to resolve symptoms with medication management.?VIBRA considered:? Spa Director/Finance reviewed case with Dr. Mcleod and other team members and it was discussed whether or not Dilshad needs a longer term hospitalization such as Vibra. Patient recently revealed that over the days/weeks prior to this admission, in addition to trying to starve/dehydrate himself to , he tried to kill himself 2x by Tylenol overdose, making auto service writer more aware of the extent of his unsafe behavior. Patient remains without any insight at all. He is fully overwhelmed by persecutory delusions. At this point it is becoming increasing difficult for auto service writer to imagine a scenario where Dilshad is safe outside of a longer term commitment where he is court ordered to take medications. For while he has indeed benefited from Clozapine (improved mood, relief from emotional anguish and reprieve from being contacted by persecutors [delusions]) his illness keeps him from attributing that benefit to medication; rather he maintains that medications are placebos and his relief is due to some other cause; and thus, on his own, patient's illness renders him unable to remain adherent with medications. However, if Dilshad had an extended hospital stay and remained on medications for an extended period of months, he may experience his relief from torture? as a product of medications and thus achieve enough insight to remain on medications as an outpatient. Spa Director/Finance will continue to discuss case with colleagues, but is coming to the conclusion that patient requires [facility] admission for his safety. PLAN: q5min checks (currently no unsafe behaviors) Court ordered involuntary commitment; court ordered substituted judgment/Euceda for medication Titrate CLOZARIL 62.6MG Q.H.S (starting 08/24)., will titrate; cannot refuse; give IM Ziprasidone if refuses Ziprasidone 20mg IM if refuses Clozaril -Team agrees that patient requires assisted admission and will apply to [facility] -scheduled clonazepam 0.25 mg b.i.d. PRN for anxiety Micromedex: 1)?Rapid titration in hospitalized patients: Day 1, 50 mg orally followed by 50 to 100 mg as needed every 6 hours (up to an additional 150 mg). Thereafter, may increase daily dosage in increments of 50 to 100 mg. Mean dosage on day 1 was 207 mg/day in patients with prior clozapine exposure and 59.7 mg without prior exposure. Mean titration over 5.44 days to a dosage of 260 mg/day, lead to a mean dosage at discharge of 322 mg/day ?Poyraz CA, Peggy? A, Sag[place]? NG, et al: Rapid clozapine titration in patients with treatment refractory schizophrenia. Psychiatr Q 2016; 87(2):315-322. I spent minutes with the patient and/or on the patient floor today, greater than?50% of which was spent counseling/coordinating care. Reason for contiued inpatient stay Substantial Risk for: harm to self
[2021-08-24 18:00] VITALS: BP 135/78; PULSE 90; RESP 18; TEMP 36.9; O2SAT 97
[2021-08-24] MEDS: cloZAPine 25 MG TABLET 62.5 MG PO (21:08)
[2021-08-25 06:00] VITALS: BP 142/80; PULSE 72; RESP 16; TEMP 36.4; O2SAT 98
[2021-08-25 19:05] VITALS: BP 131/69; PULSE 84; RESP 18; TEMP 36.9; O2SAT 97
--- NOTE | 2021-08-25 19:46 | P.PNPSI_ITS ---
Subjective Subjective Date of Service: 08/25/21 Reason For Visit: Suicidal Interim History: Patient remains stoic and unwilling to discuss psychiatric issues. He denies any medication side effects. He did share that he is disappointed his parents cannot visit him over Mell[place] due to hospital band on visitors (due to COVID) however he is understanding of the reasons and accepts this. Denies side-effects from [facility] Mental Status Exam Mental Status Exam Narrative: :?pt is alert to self, time, and situation (though does not think he has mental illness); appearance is appropriate, clean shaven; behavior is guarded and reticent, though calm, mostly keeping to himself and pacing hallways; adequate eye contact; mood is fine and affect is constricted; thought process is goal oriented; thought content is on Vibra; otherwise guarded but alluding to continued perseveration on paranoid, persecutory delusions about being tortured; denies SI though typically intermittent SI as fulfillment of task assigned to him by persecutors; patient believes he receives messages through various avenues, having thoughts implanted in his head or communications given through media which he typically avoids. Denies [facility]. ?Patients insight and judgment are impaired Diagnostics Vital Signs (24Hr): Vital Signs - 24 hr 08/25/21 06:00 08/25/21 19:05 Temperature 97.6 F 98.4 F Pulse Rate 72 84 Respiratory Rate 16 18 Blood Pressure 142/80 H 131/69 Pulse Oximetry 98 97 Labs Results: 08/22/21 08:27 08/09/21 18:43 Medications Medications Current Medications Acetaminophen (Acetaminophen 325 Mg Tablet) 650 mg PO Q6H PRN PRN Reason: Pain, Mild (Pain Scale 1-3) Al Hydroxide/Mg Hydroxide (Magnesium Hydrox/Alum Hydrox 30 Ml Oral.Susp) 30 ml PO Q6H PRN PRN Reason: Heartburn/Nausea Calcium Carbonate (Calcium Carbonate 750 Mg Tab.Chew) 750 mg PO Q4H PRN PRN Reason: Indigestion Last Admin: 08/06/21 19:35 Dose: 750 mg Documented by: Clozapine (Clozapine 25 Mg Tablet) 62.5 mg PO BEDTIME FIDEL Stop: 08/26/21 23:59 Last Admin: 08/24/21 21:08 Dose: 62.5 mg Documented by: Clozapine (Clozapine 25 Mg Tablet) 75 mg PO BEDTIME FIDEL Diphenhydramine HCl (Diphenhydramine Hcl 25 Mg Tablet) 50 mg PO Q4H PRN PRN Reason: agitation Last Admin: 07/26/21 09:00 Dose: 50 mg Documented by: Hydroxyzine HCl (Hydroxyzine Hcl 25 Mg Tablet) 25 mg PO BEDTIME PRN PRN Reason: Anxiety Last Admin: 08/04/21 21:07 Dose: 25 mg Documented by: Magnesium Hydroxide (Milk Of Magnesia 30 Ml Oral.Susp) 30 ml PO DAILY PRN PRN Reason: Constipation Nicotine Polacrilex (Nicotine Polacrilex 2 Mg Gum) 2 mg BUCCAL Q2H PRN PRN Reason: Nicotine Cravings Trazodone HCl (Trazodone Hcl 50 Mg Tablet) 50 mg PO BEDTIME PRN PRN Reason: Insomnia Ziprasidone (Ziprasidone 20 Mg Capsule) 20 mg PO TID PRN PRN Reason: agitation Ziprasidone (Ziprasidone Mesylate 20 Mg Vial) 20 mg IM DAILY PRN PRN Reason: on Euceda; if refuses PO Last Admin: 08/20/21 21:03 Dose: 20 mg Documented by: Allergies Allergies Allergy/AdvReac Type Severity Reaction Status Date / Time olanzapine [OLANZAPINE] Allergy Severe FACIAL Verified 04/06/21 10:20 SWELLING Assessment & Plan Assessment & Plan (1) Schizoaffective disorder: Status: Chronic Code(s): F25.9 - Schizoaffective disorder, unspecified Assessment and Plan: started meds few days ago - tolerating so far- maybe calmer due to it still pretty shut down (2) Starvation ketoacidosis: Status: Resolved Code(s): E87.2 - Acidosis Assessment and Plan: denies current plan for this (3) PTSD (post-traumatic stress disorder): Status: Suspected Code(s): F43.10 - Post-traumatic stress disorder, unspecified Assessment and Plan: Impression: Patient is a 35-year-old male with history of schizophrenia, paranoid type who presents for paranoid, persecutory delusions, in the face of going off medications, prompting pt to attempt suicide by starvation and water deprivation. While trying to starve himself to , and just days before this admission, patient also attempted to kill himself by overdosing on Tylenol; when this did not work he tried again at a higher dose. Pt now presents to M5 from medical floor where he required fluid resuscitation,?electrolytes replenished and treatment for starvation ketoacidosis, hypernatremia and acute kidney injury.? Pt now medically cleared and transferred to psychiatric unit. ?Patient was recently discharged from the unit around 05/13/2021. HOspital course: Patient currently suffers from severe paranoid persecutory delusions that frequently direct him to harm himself in order to save his family from future torture.? Patient has no insight.? Currently refuses medications and remains on Section 12 B. he says he does not necessarily want to leave the hospital, nor does he want to stay but does not want to sign a CV worried that it will be unacceptable to his persecutors. -patient remains in severe mental anguish over what is the right thing to do, very worried about making the wrong decision which will aggravate his persecutors and therefor put his family in future jeopardy; patient eventually decided to sign a CV but then later signed a 3 day notice.? He agreed to take Clozaril but then was again ambivalent.? Patient remains willing to self-harm to the point of suicide based on paranoid delusions that he must do so in order to save his family from future torment. -over the weekend patient was screaming, out of control and required medication restraint 07/11 patient remains with joel paranoid, persecutory delusions, thoughts to starve himself to based on paranoid delusion, no insight and impaired judgment. -currently he is eating and drinking but only minimally 07/12 pt decided to take Clozaril 07/13:? Patient is tormented seems to have reached a boiling point and he agreed to take Clozaril and sign in 07/15- says he will try a new approach to his decision making; agrees to continue taking Clozaril.? Remains guarded, and with paranoid delusions 07/21 floridly psychotic with intense paranoid, persecutory delusions that are overwhelming patient into repeated unsafe thinking or behavior including suicide, and starvation and water deprivation.? Patient has no insight and does not believe that medications help at all; he goes back and forth about whether to take medications as he's very anxious about contradicting his persecutors whom he believes give him messages directing his behavior. 07/23 pt again decided to stop taking medications, a frequent decision emerging every few days as patient again feels that it's safer to listen to his persec utors (paranoid delusions) then it is to go against their edict and take medications. Over the past 2 weeks, only after lengthy discussions, would patient change his mind and go back to taking medications; however this reversion is not due to any moment of insight but rather a combination of emotional exhaustion and him trying to find a loophole in his persecutors edict to not take medications. -patient put in 3 day notice 07/24-07/28: sometimes withdrawn; sometimes agitated, yelling in anguished distress about being threatened by tormentors; intermittently taking medications 07/29 - rescinded 3 day notice -since then, he's agreed to take medications, though this is intermittent; taking medications however does not represent improved insight or judgment, but as patient explains, is only done because he has for the moment not concluded that They, his torementors, have specifically barred him from doing so. This makes medication management difficult since he is on Clozaril which has a narrow window for which one can safely start/stop this med. om -He continues to intermittently stop Eating and drinking in obedience to paranoid delusion with idea that he should either commit suicide or undergo some other torture; remains without insight; remains anguished. He volunteers that he has received direction on how to kill himself post discharge and he intermi ttently has plans to kill himself on the unit, though he has thus far been able to limit his actions towards this end. Patient believes he receives messages through various avenues, having thoughts implanted in his head or communications given through media or circumstance. Patient reports he wants to trust this fiction and nonfiction prose writer and staff but is never sure whether or not fiction and nonfiction prose writer/staff is part of a conspiracy to torture him. on 08/08: Patient exhibited bizarre, generating movements of primarily his upper torso; fiction and nonfiction prose writer examined patient and this was not dystonia, akathisia and was not seizure activity but rather patient's own voluntary behavior done in obedience to direction from his imagined persecutor; pt later confirmed this. NMS ruled out -labs (afebrile, autonomic stable; LDH wnl; CPK elevated as expected). Clozapine induced myoclonus considered but again given patient's presentation and his own self reporting that these movements are guided by delusional thought, very unlikely. Patient told fiction and nonfiction prose writer that since medications are being given to treat a mental illness, which he does not believe he has, he will no longer take medications -08/10required IM medication, chemical restraint for wild in unsafe behavior, hitting his head against the wall unable to be redirected 08/11 more calm; body movements not present; can advance to q5 and off 1:1 for now (discussed with staff who agree). 08/18 -pt restarted on Clozapine (on 08/17) -calm on unit, but not willing to enage in talk therapy; mostly pacing halls during day -Bizarre body movements remain resolved? -patient's movements voluntary and done in obedience to delusion 08/23: Patient remains difficult to engage in is only superficially interactive with fiction and nonfiction prose writer which has been the case since a few days before court. Will continue to titrate Clozaril. pt denies med side-effects -pt agreed to Covid vaccination; he was not interested in hearing about risks/side-effects though fiction and nonfiction prose writer discussed anyway; he asked if he could get Flu vaccination and nursing will review to make sure he did not already get. ?Pt got Moderna X1 on 08/24/21 Barrier to discharge:? Patient is floridly psychotic; he has no insight and currently suffers from paranoid, persecutory delusions, believing he needs to either kill himself or engage in behaviors that will result in , in order to fulfill his persecutors demands; if discharged before stable, patient will quickly decompensate and be at high risk for suicide; he requires locked unit, and likely a fci admission, to resolve symptoms with medication managemen t.?[facility] application submitted:? Assistant Restaurant General Manager reviewed case with Dr. Mcleod and other team members and it was discussed whether or not Dilshad needs a longer term hospitalization such as [facility]ibra. Patient recently revealed that over the days/weeks prior to this admission, in addition to trying to starve/dehydrate himself to , he tried to kill himself 2x by Tylenol overdose, making fiction and nonfiction prose writer more aware of the extent of his unsafe behavior. Patient remains without any insight at all. He is fully overwhelmed by persecutory delusions. At this point it is becoming increasing difficult for fiction and nonfiction prose writer to imagine a scenario where Dilshad is safe outside of a longer term commitment where he is court ordered to take medications. For while he has indeed benefited from Clozapine (improved mood, relief from emotional anguish and reprieve from being contacted by persecutors [delusions]) his illness keeps him from attributing that benefit to medication; rather he maintains that medications are placebos and his relief is due to some other cause; and thus, on his own, patient's illness renders him unable to remain adherent with medications. However, if Dilshad had an extended hospital stay and remained on medications for an extended period of months, he may experience his relief from torture? as a product of medications and thus achieve enough insight to remain on medications as an outpatient. Team discussed and fully agrees that patient requires [facility] admission for his safety. PLAN: q5min checks (currently no unsafe behaviors) Court ordered involuntary commitment; court ordered substituted judgment/Euceda for medication Titrate CLOZARIL to 75MG Q.H.S (on 08/27)., will titrate; cannot refuse; give IM Ziprasidone if refuses [facility] Ziprasidone 20mg IM if refuses Clozaril -Team agrees that patient requires [facility]ci admission and submitted application to [facility] -scheduled clonazepam 0.25 mg b.i.d. PRN for anxiety Micromedex: 1)?Rapid titration in hospitalized patients: Day 1, 50 mg orally followed by 50 to 100 mg as needed every 6 hours (up to an additional 150 mg). Thereafter, may increase daily dosage in increments of 50 to 100 mg. Mean dosage on day 1 was 207 mg/day in patients with prior clozapine exposure and 59.7 mg without prior exposure. Mean titration over 5.44 days to a dosage of 260 mg/day, lead to a mean dosage at discharge of 322 mg/day ?Sarika HEBERT, Peggy? A, Wagner? GEE, et al: Rapid clozapine titration in patients with treatment refractory schizophrenia. Psychiatr Q 2016; 87(2):315-322. I spent minutes with the patient and/or on the patient floor today, g reater than?50% of which was spent counseling/coordinating care. Reason for contiued inpatient stay Substantial Risk for: harm to self
[2021-08-25] MEDS: cloZAPine 25 MG TABLET 62.5 MG PO (20:38)
[2021-08-26 06:00] VITALS: BP 101/58; PULSE 76; RESP 14; TEMP 37; O2SAT 96
--- NOTE | 2021-08-26 12:08 | P.PNPSI_ITS ---
Subjective Subjective Date of Service: 08/26/21 Reason For Visit: Suicidal Interim History: Patient seen and discussed with team. Patient evaluated this morning and upon interview pt reports he is doing okay. Says he feels fine about medication. Mood is fine. Has been eating. Has no questions or concerns. Says he feels safe. Sleep is okay, and that he is getting enough sleep.?? In the milieu, patient is safe in behavior, spends much of time pacing the hallways. Denies SI/SIB/HI upon inquiry. Denies irritability or assaultive ideation. Says he feels safe. Medication Compliance: Yes Side effects from medications: No Attending Groups: No Review of Systems Acute medical concerns: No Medical Review of Systems: unchanged Mental Status Exam Mental Status Exam Narrative: pt is alert to self, time, and situation (though does not think he has mental illness); appearance is appropriate, clean shaven; behavior is guarded and reticent, though calm, mostly keeping to himself and pacing hallways; adequate eye contact; mood is fine and affect is constricted; thought process is goal oriented; thought content is on [facility]; otherwise guarded but alluding to continued perseveration on paranoid, persecutory delusions about being tortured; denies SI though typically intermittent SI as fulfillment of task assigned to him by persecutors; patient believes he receives messages through various avenues, having thoughts implanted in his head or communications given through media which he typically avoids. Denies AvH. ?Patients insight and judgment are impaired Diagnostics Vital Signs (24Hr): Vital Signs - 24 hr 08/28/21 18:00 08/29/21 06:00 Temperature 97.2 F Pulse Rate 78 88 Respiratory Rate 18 Blood Pressure 131/94 H 126/83 Pulse Oximetry 96 Labs Results: 08/29/21 08:12 08/09/21 18:43 Labs: Laboratory Results - last 48 hr 08/29/21 08:12 WBC 6.8 RBC 4.96 Hgb 14.9 Hct 44.1 MCV 88.9 MCH 30.0 MCHC 33.8 RDW 12.9 Plt Count 217 MPV 10.3 Immature Gran % (Auto) 0.1 Neut % (Auto) 56.1 Lymph % (Auto) 29.5 Major % (Auto) 9.5 Eos % (Auto) 4.4 H Baso % (Auto) 0.4 Lymph # (Auto) 2.0 Major # (Auto) 0.7 Eos # (Auto) 0.3 Baso # (Auto) 0.0 Abs Immat Gran (auto) 0.01 Absolute Neuts (auto) 3.8 Absolute Nucleated RBC 0.000 Nucleated RBC % (auto) 0.0 Medications Medications Current Medications Acetaminophen (Acetaminophen 325 Mg Tablet) 650 mg PO Q6H PRN PRN Reason: Pain, Mild (Pain Scale 1-3) Al Hydroxide/Mg Hydroxide (Magnesium Hydrox/Alum Hydrox 30 Ml Oral.Susp) 30 ml PO Q6H PRN PRN Reason: Heartburn/Nausea Calcium Carbonate (Calcium Carbonate 750 Mg Tab.Chew) 750 mg PO Q4H PRN PRN Reason: Indigestion Last Admin: 08/06/21 19:35 Dose: 750 mg Documented by: Clozapine (Clozapine 25 Mg Tablet) 75 mg PO BEDTIME FIDEL Last Admin: 08/28/21 20:10 Dose: 75 mg Documented by: Diphenhydramine HCl (Diphenhydramine Hcl 25 Mg Tablet) 50 mg PO Q4H PRN PRN Reason: agitation Last Admin: 07/26/21 09:00 Dose: 50 mg Documented by: Hydroxyzine HCl (Hydroxyzine Hcl 25 Mg Tablet) 25 mg PO BEDTIME PRN PRN Reason: Anxiety Last Admin: 08/04/21 21:07 Dose: 25 mg Documented by: Magnesium Hydroxide (Milk Of Magnesia 30 Ml Oral.Susp) 30 ml PO DAILY PRN PRN Reason: Constipation Nicotine Polacrilex (Nicotine Polacrilex 2 Mg Gum) 2 mg BUCCAL Q2H PRN PRN Reason: Nicotine Cravings Trazodone HCl (Trazodone Hcl 50 Mg Tablet) 50 mg PO BEDTIME PRN PRN Reason: Insomnia Ziprasidone (Ziprasidone 20 Mg Capsule) 20 mg PO TID PRN PRN Reason: agitation Ziprasidone (Ziprasidone Mesylate 20 Mg Vial) 20 mg IM DAILY PRN PRN Reason: on Euceda; if refuses PO Last Admin: 08/20/21 21:03 Dose: 20 mg Documented by: Allergies Allergies Allergy/AdvReac Type Severity Reaction Status Date / Time olanzapine [OLANZAPINE] Allergy Severe FACIAL Verified 04/06/21 10:20 SWELLING Assessment & Plan Assessment & Plan (1) Schizoaffective disorder: Status: Chronic Code(s): F25.9 - Schizoaffective disorder, unspecified Assessment and Plan: started meds few days ago - tolerating so far- maybe calmer due to it still pretty shut down (2) Starvation ketoacidosis: Status: Resolved Code(s): E87.2 - Acidosis Assessment and Plan: denies current plan for this (3) PTSD (post-traumatic stress disorder): Status: Suspected Code(s): F43.10 - Post-traumatic stress disorder, unspecified Assessment and Plan: Impression: Patient is a 35-year-old male with history of schizophrenia, paranoid type who presents for paranoid, persecutory delusions, in the face of going off medications, prompting pt to attempt suicide by starvation and water deprivation. While trying to starve himself to , and just days before this admission, patient also attempted to kill himself by overdosing on Tylenol; when this did not work he tried again at a higher dose. Pt now presents to from medical floor where he required fluid resuscitation,?electrolytes replenished and treatment for starvation ketoacidosis, hypernatremia and acute kidney injury.? Pt now medically cleared and transferred to psychiatric unit. ?Patient was recently discharged from the unit around 05/13/2021. HOspital course: Patient currently suffers from severe paranoid persecutory delusions that frequently direct him to harm himself in order to save his family from future torture.? Patient has no insight.? Currently refuses medications and remains on Section 12 B. he says he does not necessarily want to leave the hospital, nor does he want to stay but does not want to sign a CV worried that it will be unacceptable to his persecutors. -patient remains in severe mental anguish over what is the right thing to do, very worried about making the wrong decision which will aggravate his persecutors and therefor put his family in future jeopardy; patient eventually decided to sign a CV but then later signed a 3 day notice.? He agreed to take Clozaril but then was again ambivalent.? Patient remains willing to self-harm to the point of suicide based on paranoid delusions that he must do so in order to save his family from future torment. -over the weekend patient was screaming, out of control and required medication restraint 07/11 patient remains with joel paranoid, persecutory delusions, thoughts to starve himself to based on paranoid delusion, no insight and impaired judgment. -currently he is eating and drinking but only minimally 07/12 pt decided to take Clozaril 07/13:? Patient is tormented seems to have reached a boiling point and he agreed to take Clozaril and sign in 07/15- says he will try a new approach to his decision making; agrees to continue taking Clozaril.? Remains guarded, and with paranoid delusions 07/21 floridly psychotic with intense paranoid, persecutory delusions that are overwhelming patient into repeated unsafe thinking or behavior including suicide, and starvation and water deprivation.? Patient has no insight and does not believe that medications help at all; he goes back and forth about whether to take medications as he's very anxious about contradicting his persecutors whom he believes give him messages directing his behavior. 07/23 pt again decided to stop taking medications, a frequent decision emerging every few days as patient again feels that it's safer to listen to his persecutors (paranoid delusions) then it is to go against their edict and take medications. Over the past 2 weeks, only after lengthy discussions, would patient change his mind and go back to taking medications; however this reversion is not due to any moment of insight but rather a combination of emotional exhaustion and him trying to find a loophole in his persecutors edict to not take medications. -patient put in 3 day notice 07/24-07/28: sometimes withdrawn; sometimes agitated, yelling in anguished distress about being threatened by tormentors; intermittently taking medications 07/29 - rescinded 3 day notice -since then, he's agreed to take medications, though this is intermittent; taking medications however does not represent improved insight or judgment, but as patient explains, is only done because he has for the moment not concluded that They, his torementors, have specifically barred him from doing so. This makes medication management difficult since he is on Clozaril which has a narrow window for which one can safely start/stop this med. om -He continues to intermittently stop Eating and drinking in obedience to paranoid delusion with idea that he should either commit suicide or undergo some other torture; remains without insight; remains anguished. He volunteers that he has received direction on how to kill himself post discharge and he intermittently has plans to kill himself on the unit, though he has thus far been able to limit his actions towards this end. Patient believes he receives messages through various avenues, having thoughts implanted in his head or communications given through media or circumstance. Patient reports he wants to trust this keno writer/runner and staff but is never sure whether or not keno writer/runner/staff is part of a conspiracy to torture him. on 08/08: Patient exhibited bizarre, generating movements of primarily his upper torso; keno writer/runner examined patient and this was not dystonia, akathisia and was not seizure activity but rather patient's own voluntary behavior done in obedience to direction from his imagined persecutor; pt later confirmed this. NMS ruled out -labs (afebrile, autonomic stable; LDH wnl; CPK elevated as expected). Clozapine induced myoclonus considered but again given patient's presentation and his own self reporting that these movements are guided by delu sional thought, very unlikely. Patient told keno writer/runner that since medications are being given to treat a mental illness, which he does not believe he has, he will no longer take medications -08/10required IM medication, chemical restraint for wild in unsafe behavior, hitting his head against the wall unable to be redirected 08/11 more calm; body movements not present; can advance to q5 and off 1:1 for now (discussed with staff who agree). 08/18 -pt restarted on Clozapine (on 08/17) -calm on unit, but not willing to enage in talk therapy; mostly pacing halls during day -Bizarre body movements remain resolved? -patient's movements voluntary and done in obedience to delusion 08/23: Patient remains difficult to engage in is only superficially interactive with keno writer/runner which has been the case since a few days before court. Will continue to titrate Clozaril. pt denies med side-effects -pt agreed to Covid vaccination; he was not interested in hearing about risks/side-effects though keno writer/runner discussed anyway; he asked if he could get Flu vaccination and nursing will review to make sure he did not already get. ?Pt got Moderna X1 on 08/24/2108/25: no changes in med regimen, continue clozapine Barrier to discharge:? Patient is floridly psychotic; he has no insight and currently suffers from paranoid, persecutory delusions, believing he needs to either kill himself or engage in behaviors that will result in , in order to fulfill his persecutors demands; if discharged before stable, patient will quickly decompensate and be at high risk for suicide; he requires locked unit, and likely a intermediate manager admission, to resolve symptoms with medication management.?[facility] application submitted:? Radiology Teacher reviewed case with Dr. Mcleod and other team members and it was discussed whether or not Dilshad needs a longer term hospitalization such as [facility]ibra. Patient recently revealed that over the days/weeks prior to this admission, in addition to trying to starve/dehydrate himself to , he tried to kill himself 2x by Tylenol overdose, making keno writer/runner more aware of the extent of his unsafe behavior. Patient remains without any insight at all. He is fully overwhelmed by persecutory delusions. At this point it is becoming increasing difficult for keno writer/runner to imagine a scenario where Dilshad is safe outside of a longer term commitment where he is court ordered to take medications. For while he has indeed benefited from Clozapine (improved mood, relief from emotional anguish and reprieve from being contacted by persecutors [delusions]) his illness keeps him from attributing that benefit to medication; rather he maintains that medications are placebos and his relief is due to some other cause; and thus, on his own, patient's illness renders him unable to remain adherent with medications. However, if Dilshad had an extended hospital stay and remained on medications for an extended period of months, he may experience his relief from torture? as a product of medications and thus achieve enough insight to remain on medications as an outpatient. Team discussed and fully agrees that patient requires [facility] admission for his safety. PLAN: q5min checks (currently no unsafe behaviors) Court ordered involuntary commitment; court ordered substituted judgment/Euceda for medication Titrate CLOZARIL to 75MG Q.H.S (on 08/27)., will titrate; cannot refuse; give IM Ziprasidone if refuses Or see Moderna X1 on 08/24/21 Ziprasidone 20mg IM if refuses Clozaril -Team agrees that patient requires jail admission and submitted application to [facility] -scheduled clonazepam 0.25 mg b.i.d. PRN for anxiety Micromedex: 1)?Rapid titration in hospitalized patients: Day 1, 50 mg orally followed by 50 to 100 mg as needed every 6 hours (up to an additional 150 mg). Thereafter, may increase daily dosage in increments of 50 to 100 mg. Mean dosage on day 1 was 207 mg/day in patients with prior clozapine exposure and 59.7 mg without prior exposure. Mean titration over 5.44 days to a dosage of 260 mg/day, lead to a mean dosage at discharge of 322 mg/day ?Sarika CA, Peggy? A, Sagrolo? NG, et al: Rapid clozapine titration in patients with treatment refractory schizophrenia. Psychiatr Q 2016; 87(2):315-322. I spent minutes with the patient and/or on the patient floor today, greater than?50% of which was spent counseling/coordinating care. Reason for contiued inpatient stay Substantial Risk for: harm to self, inability to function and med/psych decompensation
[2021-08-26 18:21] VITALS: BP 120/66; PULSE 79; RESP 18; TEMP 36.8; O2SAT 98
[2021-08-26] MEDS: cloZAPine 25 MG TABLET 62.5 MG PO (20:39)
--- NOTE | 2021-08-27 12:11 | P.PNPSI_ITS ---
Subjective Subjective Date of Service: 08/27/21 Reason For Visit: Suicidal Interim History: Patient seen and discussed with team. Patient evaluated this morning and upon interview pt reports im alright, has no questions or concerns. Sleep is fine. Says he is fine with medications. Mood is fine. Eating okay, drinking fluids. Continues to spend time pacing halls with no shoes, looking down, otherwise calm and redirectable. In the milieu, patient is safe in behavior. Denies SI/SIB/HI upon inquiry. Denies irritability or assaultive ideation. Says he feels safe. Medication Compliance: Yes Side effects from medications: No Attending Groups: No Review of Systems Acute medical concerns: No Medical Review of Systems: unchanged Mental Status Exam Mental Status Exam Narrative: pt is alert to self, time, and situation (though does not think he has mental illness); appearance is appropriate, clean shaven; behavior is guarded and reticent, though calm, mostly keeping to himself and pacing hallways; adequate eye contact; mood is fine and affect is constricted; thought process is goal oriented; thought content is on [facility]; otherwise guarded but alluding to continued perseveration on paranoid, persecutory delusions about being tortured; denies SI though typically intermittent SI as fulfillment of task assigned to him by persecutors; patient believes he receives messages through various avenues, having thoughts implanted in his head or communications given through media which he typically avoids. Denies AvH. ?Patients insight and judgment are impaired Diagnostics Vital Signs (24Hr): Vital Signs - 24 hr 08/28/21 18:00 08/29/21 06:00 Temperature 97.2 F Pulse Rate 78 88 Respiratory Rate 18 Blood Pressure 131/94 H 126/83 Pulse Oximetry 96 Labs Results: 08/29/21 08:12 08/09/21 18:43 Labs: Laboratory Results - last 48 hr 08/29/21 08:12 WBC 6.8 RBC 4.96 Hgb 14.9 Hct 44.1 MCV 88.9 MCH 30.0 MCHC 33.8 RDW 12.9 Plt Count 217 MPV 10.3 Immature Gran % (Auto) 0.1 Neut % (Auto) 56.1 Lymph % (Auto) 29.5 Sanders % (Auto) 9.5 Eos % (Auto) 4.4 H Baso % (Auto) 0.4 Lymph # (Auto) 2.0 Sanders # (Auto) 0.7 Eos # (Auto) 0.3 Baso # (Auto) 0.0 Abs Immat Gran (auto) 0.01 Absolute Neuts (auto) 3.8 Absolute Nucleated RBC 0.000 Nucleated RBC % (auto) 0.0 Medications Medications Current Medications Acetaminophen (Acetaminophen 325 Mg Tablet) 650 mg PO Q6H PRN PRN Reason: Pain, Mild (Pain Scale 1-3) Al Hydroxide/Mg Hydroxide (Magnesium Hydrox/Alum Hydrox 30 Ml Oral.Susp) 30 ml PO Q6H PRN PRN Reason: Heartburn/Nausea Calcium Carbonate (Calcium Carbonate 750 Mg Tab.Chew) 750 mg PO Q4H PRN PRN Reason: Indigestion Last Admin: 08/06/21 19:35 Dose: 750 mg Documented by: Clozapine (Clozapine 25 Mg Tablet) 75 mg PO BEDTIME FIDEL Last Admin: 08/28/21 20:10 Dose: 75 mg Documented by: Diphenhydramine HCl (Diphenhydramine Hcl 25 Mg Tablet) 50 mg PO Q4H PRN PRN Reason: agitation Last Admin: 07/26/21 09:00 Dose: 50 mg Documented by: Hydroxyzine HCl (Hydroxyzine Hcl 25 Mg Tablet) 25 mg PO BEDTIME PRN PRN Reason: Anxiety Last Admin: 08/04/21 21:07 Dose: 25 mg Documented by: Magnesium Hydroxide (Milk Of Magnesia 30 Ml Oral.Susp) 30 ml PO DAILY PRN PRN Reason: Constipation Nicotine Polacrilex (Nicotine Polacrilex 2 Mg Gum) 2 mg BUCCAL Q2H PRN PRN Reason: Nicotine Cravings Trazodone HCl (Trazodone Hcl 50 Mg Tablet) 50 mg PO BEDTIME PRN PRN Reason: Insomnia Ziprasidone (Ziprasidone 20 Mg Capsule) 20 mg PO TID PRN PRN Reason: agitation Ziprasidone (Ziprasidone Mesylate 20 Mg Vial) 20 mg IM DAILY PRN PRN Reason: on Euceda; if refuses PO Last Admin: 08/20/21 21:03 Dose: 20 mg Documented by: Allergies Allergies Allergy/AdvReac Type Severity Reaction Status Date / Time olanzapine [OLANZAPINE] Allergy Severe FACIAL Verified 04/06/21 10:20 SWELLING Assessment & Plan Assessment & Plan (1) Schizoaffective disorder: Status: Chronic Code(s): F25.9 - Schizoaffective disorder, unspecified Assessment and Plan: started meds few days ago - tolerating so far- maybe calmer due to it still pretty shut down (2) Starvation ketoacidosis: Status: Resolved Code(s): E87.2 - Acidosis Assessment and Plan: denies current plan for this (3) PTSD (post-traumatic stress disorder): Status: Suspected Code(s): F43.10 - Post-traumatic stress disorder, unspecified Assessment and Plan: Impression: Patient is a 35-year-old male with history of schizophrenia, paranoid type who presents for paranoid, persecutory delusions, in the face of going off medications, prompting pt to attempt suicide by starvation and water deprivation. While trying to starve himself to , and just days before this admission, patient also attempted to kill himself by overdosing on Tylenol; when this did not work he tried again at a higher dose. Pt now presents to from medical floor where he required fluid resuscitation,?electrolytes replenished and treatment for starvation ketoacidosis, hypernatremia and acute kidney injury.? Pt now medically cleared and transferred to psychiatric unit. ?Patient was recently discharged from the unit around 05/13/2021. HOspital course: Patient currently suffers from severe paranoid persecutory delusions that freque ntly direct him to harm himself in order to save his family from future torture.? Patient has no insight.? Currently refuses medications and remains on Section 12 B. he says he does not necessarily want to leave the hospital, nor does he want to stay but does not want to sign a CV worried that it will be unacceptable to his persecutors. -patient remains in severe mental anguish over what is the right thing to do, very worried about making the wrong decision which will aggravate his persecutors and therefor put his family in future jeopardy; patient eventually decided to sign a CV but then later signed a 3 day notice.? He agreed to take Clozaril but then was again ambivalent.? Patient remains willing to self-harm to the point of suicide based on paranoid delusions that he must do so in order to save his family from future torment. -over the weekend patient was screaming, out of control and required medication restraint 07/11 patient remains with joel paranoid, persecutory delusions, thoughts to starve himself to based on paranoid delusion, no insight and impaired judgment. -currently he is eating and drinking but only minimally 07/12 pt decided to take Clozaril 07/13:? Patient is tormented seems to have reached a boiling point and he agreed to take Clozaril and sign in 07/15- says he will try a new approach to his decision making; agrees to continue taking Clozaril.? Remains guarded, and with paranoid delusions 07/21 floridly psychotic with intense paranoid, persecutory delusions that are overwhelming patient into repeated unsafe thinking or behavior including suicide, and starvation and water deprivation.? Patient has no insight and does not believe that medications help at all; he goes back and forth about whether to take medications as he's very anxious about contradicting his persecutors whom he believes give him messages directing his behavior. 07/23 pt again decided to stop taking medications, a frequent decision emerging every few days as patient again feels that it's safer to listen to his persecutors (paranoid delusions) then it is to go against their edict and take medications. Over the past 2 weeks, only after lengthy discussions, would patient change his mind and go back to taking medications; however this reversion is not due to any moment of insight but rather a combination of emotional exhaustion and him trying to find a loophole in his persecutors edict to not take medications. -patient put in 3 day notice 07/24-07/28: sometimes withdrawn; sometimes agitated, yelling in anguished distress about being threatened by tormentors; intermittently taking medications 07/29 - rescinded 3 day notice -since then, he's agreed to take medications, though this is intermittent; taking medications however does not represent improved insight or judgment, but as patient explains, is only done because he has for the moment not concluded that They, his torementors, have specifically barred him from doing so. This makes medication management difficult since he is on Clozaril which has a narrow window for which one can safely start/stop this med. om -He continues to intermittently stop Eating and drinking in obedience to paranoid delusion with idea that he should either commit suicide or undergo some other torture; remains without insight; remains anguished. He volunteers that he has received direction on how to kill himself post discharge and he intermittently has plans to kill himself on the unit, though he has thus far been able to limit his actions towards this end. Patient believes he receives messages through various avenues, having thoughts implanted in his head or communications given through media or circumstance. Patient reports he wants to trust this song writer and staff but is never sure whether or not song writer/staff is part of a conspiracy to torture him. on 08/08: Patient exhibited bizarre, generating movements of primarily his upper torso; song writer examined patient and this was not dystonia, akathisia and was not seizure activity but rather patient's own voluntary behavior done in obedience to direction from his imagined persecutor; pt later confirmed this. NMS ruled out -labs (afebrile, autonomic stable; LDH wnl; CPK elevated as expected). Clozapine induced myoclonus considered but again given patient's presentation and his own self reporting that these movements are guided by d elusional thought, very unlikely. Patient told song writer that since medications are being given to treat a mental illness, which he does not believe he has, he will no longer take medications -08/10required IM medication, chemical restraint for wild in unsafe behavior, hitting his head against the wall unable to be redirected 08/11 more calm; body movements not present; can advance to q5 and off 1:1 for now (discussed with staff who agree). 08/18 -pt restarted on Clozapine (on 08/17) -calm on unit, but not willing to enage in talk therapy; mostly pacing halls during day -Bizarre body movements remain resolved? -patient's movements voluntary and done in obedience to delusion 08/23: Patient remains difficult to engage in is only superficially interactive with song writer which has been the case since a few days before court. Will continue to titrate Clozaril. pt denies med side-effects -pt agreed to Covid vaccination; he was not interested in hearing about risks/side-effects though song writer discussed anyway; he asked if he could get Flu vaccination and nursing will review to make sure he did not already get. ?Pt got Moderna X1 on 08/24/2108/25: no changes in med regimen, continue clozapine 08/26: Pt will continue on clozapine trial, which is being adjusted as tolerated for efficacy Barrier to discharge:? Patient is floridly psychotic; he has no insight and cur rently suffers from paranoid, persecutory delusions, believing he needs to either kill himself or engage in behaviors that will result in , in order to fulfill his persecutors demands; if discharged before stable, patient will quickly decompensate and be at high risk for suicide; he requires locked unit, and likely a fpc admission, to resolve symptoms with medication management.?[facility] application submitted:? [employer] Director reviewed case with Dr. Mcleod and other team members and it was discussed whether or not Dilshad needs a longer term hospitalization such as [facility]. Patient recently revealed that over the days/weeks prior to this admission, in addition to trying to starve/dehydrate himself to , he tried to kill himself 2x by Tylenol overdose, making song writer more aware of the extent of his unsafe behavior. Patient remains without any insight at all. He is fully overwhelmed by persecutory delusions. At this point it is becoming increasing difficult for song writer to imagine a scenario where Dilshad is safe outside of a longer term commitment where he is court ordered to take medications. For while he has indeed benefited from Clozapine (improved mood, relief from emotional anguish and reprieve from being contacted by persecutors [delusions]) his illness keeps him from attributing that benefit to medication; rather he maintains that medications are placebos and his relief is due to some other cause; and thus, on his own, patient's illness renders him unable to remain adherent with medications. However, if Dilshad had an extended hospital stay and remained on medications for an extended period of months, he may experience his relief from torture? as a product of medications and thus achieve enough insight to remain on medications as an outpatient. Team discussed and fully agrees that patient requires [facility] admission for his safety. PLAN: q5min checks (currently no unsafe behaviors) Court ordered involuntary commitment; court ordered substituted judgment/Euceda for medication Titrate CLOZARIL to 75MG Q.H.S (on 08/27)., will titrate; cannot refuse; give IM Ziprasidone if refuses Or see Modernramón X1 on 08/24/21 Ziprasidone 20mg IM if refuses Clozaril -Team agrees that patient requires filler leaf cutter long admission and submitted application to [facility] -scheduled clonazepam 0.25 mg b.i.d. PRN for anxiety Micromedex: 1)?Rapid titration in hospitalized patients: Day 1, 50 mg orally followed by 50 to 100 mg as needed every 6 hours (up to an additional 150 mg). Thereafter, may increase daily dosage in increments of 50 to 100 mg. Mean dosage on day 1 was 207 mg/day in patients with prior clozapine exposure and 59.7 mg without prior exposure. Mean titration over 5.44 days to a dosage of 260 mg/day, lead to a mean dosage at discharge of 322 mg/day ?Sarika HEBERT, Peggy? A, Wagner? NG, et al: Rapid clozapine titration in patients with treatment refractory schizophrenia. Psychiatr Q 2016; 87(2):315-322. I spent minutes with the patient and/or on the patient floor today, greater than?50% of which was spent counseling/coordinating care. Reason for contiued inpatient stay Substantial Risk for: harm to self, inability to function, rapid decompensation and med/psych decompensation
[2021-08-27 18:00] VITALS: BP 126/76; PULSE 80; RESP 18; TEMP 36.7; O2SAT 96
[2021-08-27] MEDS: cloZAPine 25 MG TABLET 75 MG PO (21:01)
--- NOTE | 2021-08-28 15:14 | P.PNPSI_ITS ---
Subjective Subjective Date of Service: 08/28/21 Reason For Visit: Suicidal Interim History: Patient seen and discussed with team. Patient evaluated this morning and upon interview pt reports im fine, has no questions or concerns. He denies having any mood or behavioral issues, denies psychotic sx. 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 Continues to spend time pacing halls with no shoes, looking down, otherwise calm and redirectable. In the milieu, patient is safe in behavior. Denies SI/SIB/HI upon inquiry. Denies irritability or assaultive ideation. Says he feels safe. Medication Compliance: Yes Side effects from medications: No Attending Groups: No Review of Systems Acute medical concerns: No Medical Review of Systems: unchanged Mental Status Exam Mental Status Exam Narrative: pt is alert to self, time, and situation (though does not think he has mental illness); appearance is appropriate, clean shaven; behavior is guarded and reticent, though calm, mostly keeping to himself and pacing hallways; adequate eye contact; mood is fine and affect is constricted; thought process is goal oriented; thought content is on [facility]; otherwise guarded but alluding to continued perseveration on paranoid, persecutory delusions about being tortured; denies SI though typically intermittent SI as fulfillment of task assigned to him by persecutors; patient believes he receives messages through various avenues, having thoughts implanted in his head or communications given through media which he typically avoids. Denies AvH. ?Patients insight and judgment are impaired Diagnostics Vital Signs (24Hr): Vital Signs - 24 hr 08/28/21 18:00 08/29/21 06:00 Temperature 97.2 F Pulse Rate 78 88 Respiratory Rate 18 Blood Pressure 131/94 H 126/83 Pulse Oximetry 96 Labs Results: 08/29/21 08:12 08/09/21 18:43 Labs: Laboratory Results - last 48 hr 08/29/21 08:12 WBC 6.8 RBC 4.96 Hgb 14.9 Hct 44.1 MCV 88.9 MCH 30.0 MCHC 33.8 RDW 12.9 Plt Count 217 MPV 10.3 Immature Gran % (Auto) 0.1 Neut % (Auto) 56.1 Lymph % (Auto) 29.5 [place] % (Auto) 9.5 Eos % (Auto) 4.4 H Baso % (Auto) 0.4 Lymph # (Auto) 2.0 [place] # (Auto) 0.7 Eos # (Auto) 0.3 Baso # (Auto) 0.0 Abs Immat Gran (auto) 0.01 Absolute Neuts (auto) 3.8 Absolute Nucleated RBC 0.000 Nucleated RBC % (auto) 0.0 Medications Medications Current Medications Acetaminophen (Acetaminophen 325 Mg Tablet) 650 mg PO Q6H PRN PRN Reason: Pain, Mild (Pain Scale 1-3) Al Hydroxide/Mg Hydroxide (Magnesium Hydrox/Alum Hydrox 30 Ml Oral.Susp) 30 ml PO Q6H PRN PRN Reason: Heartburn/Nausea Calcium Carbonate (Calcium Carbonate 750 Mg Tab.Chew) 750 mg PO Q4H PRN PRN Reason: Indigestion Last Admin: 08/06/21 19:35 Dose: 750 mg Documented by: Clozapine (Clozapine 25 Mg Tablet) 75 mg PO BEDTIME FIDEL Last Admin: 08/28/21 20:10 Dose: 75 mg Documented by: Diphenhydramine HCl (Diphenhydramine Hcl 25 Mg Tablet) 50 mg PO Q4H PRN PRN Reason: agitation Last Admin: 07/26/21 09:00 Dose: 50 mg Documented by: Hydroxyzine HCl (Hydroxyzine Hcl 25 Mg Tablet) 25 mg PO BEDTIME PRN PRN Reason: Anxiety Last Admin: 08/04/21 21:07 Dose: 25 mg Documented by: Magnesium Hydroxide (Milk Of Magnesia 30 Ml Oral.Susp) 30 ml PO DAILY PRN PRN Reason: Constipation Nicotine Polacrilex (Nicotine Polacrilex 2 Mg Gum) 2 mg BUCCAL Q2H PRN PRN Reason: Nicotine Cravings Trazodone HCl (Trazodone Hcl 50 Mg Tablet) 50 mg PO BEDTIME PRN PRN Reason: Insomnia Ziprasidone (Ziprasidone 20 Mg Capsule) 20 mg PO TID PRN PRN Reason: agitation Ziprasidone (Ziprasidone Mesylate 20 Mg Vial) 20 mg IM DAILY PRN PRN Reason: on Euceda; if refuses PO Last Admin: 08/20/21 21:03 Dose: 20 mg Documented by: Allergies Allergies Allergy/AdvReac Type Severity Reaction Status Date / Time olanzapine [OLANZAPINE] Allergy Severe FACIAL Verified 04/06/21 10:20 SWELLING Assessment & Plan Assessment & Plan (1) Schizoaffective disorder: Status: Chronic Code(s): F25.9 - Schizoaffective disorder, unspecified Assessment and Plan: started meds few days ago - tolerating so far- maybe calmer due to it still pretty shut down (2) Starvation ketoacidosis: Status: Resolved Code(s): E87.2 - Acidosis Assessment and Plan: denies current plan for this (3) PTSD (post-traumatic stress disorder): Status: Suspected Code(s): F43.10 - Post-traumatic stress disorder, unspecified Assessment and Plan: Impression: Patient is a 35-year-old male with history of schizophrenia, paranoid type who presents for paranoid, persecutory delusions, in the face of going off medications, prompting pt to attempt suicide by starvation and water deprivation. While trying to starve himself to , and just days before this admission, patient also attempted to kill himself by overdosing on Tylenol; when this did not work he tried again at a higher dose. Pt now presents to M5 from medical floor where he required fluid resuscitation,?electrolytes replenished and treatment for starvation ketoacidosis, hypernatremia and acute kidney injury.? Pt now medically cleared and transferred to psychiatric unit. ?Patient was recently discharged from the unit around 05/13/2021. HOspital course: Patient currently suffers from severe paranoid persecutory delusions that frequently direct him to harm himself in order to save his family from future torture.? Patient has no insight.? Currently refuses medications and remains on Section 12 B. he says he does not necessarily want to leave the hospital, nor does he want to stay but does not want to sign a CV worried that it will be unacceptable to his persecutors. -patient remains in severe mental anguish over what is the right thing to do, very worried about making the wrong decision which will aggravate his perse cutors and therefor put his family in future jeopardy; patient eventually decided to sign a CV but then later signed a 3 day notice.? He agreed to take Clozaril but then was again ambivalent.? Patient remains willing to self-harm to the point of suicide based on paranoid delusions that he must do so in order to save his family from future torment. -over the weekend patient was screaming, out of control and required medication restraint 07/11 patient remains with joel paranoid, persecutory delusions, thoughts to starve himself to based on paranoid delusion, no insight and impaired judgment. -currently he is eating and drinking but only minimally 07/12 pt decided to take Clozaril 07/13:? Patient is tormented seems to have reached a boiling point and he agreed to take Clozaril and sign in 07/15- says he will try a new approach to his decision making; agrees to continue taking Clozaril.? Remains guarded, and with paranoid delusions 07/21 floridly psychotic with intense paranoid, persecutory delusions that are overwhelming patient into repeated unsafe thinking or behavior including s uicide, and starvation and water deprivation.? Patient has no insight and does not believe that medications help at all; he goes back and forth about whether to take medications as he's very anxious about contradicting his persecutors whom he believes give him messages directing his behavior. 07/23 pt again decided to stop taking medications, a frequent decision emerging every few days as patient again feels that it's safer to listen to his persecutors (paranoid delusions) then it is to go against their edict and take medications. Over the past 2 weeks, only after lengthy discussions, would michelle rodriguez change his mind and go back to taking medications; however this reversion is not due to any moment of insight but rather a combination of emotional exhaustion and him trying to find a loophole in his persecutors edict to not take medications. -patient put in 3 day notice 07/24-07/28: sometimes withdrawn; sometimes agitated, yelling in anguished distress about being threatened by tormentors; intermittently taking medications 07/29 - rescinded 3 day notice -since then, he's agreed to take medications, though this is intermittent; taking medications however does not represent improved insight or judgment, but as patient explains, is only done because he has for the moment not concluded that They, his torementors, have specifically barred him from doing so. This makes medication management difficult since he is on Clozaril which has a narrow window for which one can safely start/stop this med. om -He continues to intermittently stop Eating and drinking in obedience to paranoid delusion with idea that he should either commit suicide or undergo some other torture; remains without insight; remains anguished. He volunteers that he has received direction on how to kill himself post discharge and he intermittently has plans to kill himself on the unit, though he has thus far been able to limit his actions towards this end. Patient believes he receives m essages through various avenues, having thoughts implanted in his head or communications given through media or circumstance. Patient reports he wants to trust this data analyst report writer and staff but is never sure whether or not data analyst report writer/staff is part of a conspiracy to torture him. on 08/08: Patient exhibited bizarre, generating movements of primarily his upper torso; data analyst report writer examined patient and this was not dystonia, akathisia and was not seizure activity but rather patient's own voluntary behavior done in obedience to direction from his imagined persecutor; pt later confirmed this. NMS ruled out -labs (afebrile, autonomic stable; LDH wnl; CPK elevated as expected). Clozapine induced myoclonus considered but again given patient's presentation and his own self reporting that these movements are guided by delusional thought, very unlikely. Patient told data analyst report writer that since medications are being given to treat a mental illness, which he does not believe he has, he will no longer take medications -08/10required IM medication, chemical restraint for wild in unsafe behavior, hitting his head against the wall unable to be redirected 08/11 more calm; body movements not present; can advance to q5 and off 1:1 for now (discussed with staff who agree). 08/18 -pt restarted on Clozapine (on 08/17) -calm on unit, but not willing to enage in talk therapy; mostly pacing halls during day -Bizarre body movements remain resolved? -patient's movements voluntary and done in obedience to delusion 08/23: Patient remains difficult to engage in is only superficially interactive with data analyst report writer which has been the case since a few days before court. Will continue to titrate Clozaril. pt denies med side-effects -pt agreed to Covid vaccination; he was not interested in hearing about risks/side-effects though data analyst report writer discussed anyway; he asked if he could get Flu vaccination and nursing will review to make sure he did not already get. ?Pt got Moderna X1 on 08/24/2108/26: no changes in med regimen, continue clozapine 08/27: Pt will continue on clozapine trial, which is being adjusted as tolerated for efficacy 08/28: Pt is redirectable, accepting treatment, will continue on clozapine trial for psychosis, SI Barrier to discharge:? Patient is floridly psychotic; he has no insight and currently suffers from paranoid, persecutory delusions, believing he needs to either kill himself or engage in behaviors that will result in , in order to fulfill his persecutors demands; if discharged before stable, patient will quickly decompensate and be at high risk for suicide; he requires locked unit, and likely a penitentiary admission, to resolve symptoms with medication management.?[facility] application submitted:? Glass Science Engineer reviewed case with Dr. Mcleod and other team members and it was discussed whether or not Dilshad needs a longer term hospitalization such as [facility]. Patient recently revealed that over the days/weeks prior to this admission, in addition to trying to starve/dehydrate himself to , he tried to kill himself 2x by Tylenol overdose, making data analyst report writer more aware of the extent of his unsafe behavior. Patient remains without any insight at all. He is fully overwhelmed by persecutory delusions. At this point it is becoming increasing difficult for data analyst report writer to imagine a scenario where Dilshad is safe outside of a longer term commitment where he is court ordered to take medications. For while he has indeed benefited from Clozapine (improved mood, relief from emotional anguish and reprieve from being contacted by persecutors [delusions]) his illness keeps him from attributing that benefit to medication; rather he maintains that medications are placebos and his relief is due to some other cause; and thus, on his own, patient's illness renders him unable to remain adherent with medications. However, if Dilshad had an extended hospital stay and remained on medications for an extended period of months, he may experience his relief from torture? as a product of medications and thus achieve enough insight to remain on medications as an outpatient. Team discussed and fully agrees that patient requires [facility] admission for his safety. PLAN: q5min checks (currently no unsafe behaviors) Court ordered involuntary commitment; court ordered substituted judgment/Euceda for medication Titrate CLOZARIL to 75MG Q.H.S (on 08/27)., will titrate; cannot refuse; give IM Ziprasidone if refuses Or see Moderna X1 on 08/24/21 Ziprasidone 20mg IM if refuses Clozaril -Team agrees that patient requires watermaster admission and submitted application to [facility] -scheduled clonazepam 0.25 mg b.i.d. PRN for anxiety Micromedex: 1)?Rapid titration in hospitalized patients: Day 1, 50 mg orally followed by 50 to 100 mg as needed every 6 hours (up to an additional 150 mg). Thereafter, may increase daily dosage in increments of 50 to 100 mg. Mean dosage on day 1 was 207 mg/day in patients with prior clozapine exposure and 59.7 mg without prior exposure. Mean titration over 5.44 days to a dosage of 260 mg/day, lead to a mean dosage at discharge of 322 mg/day ?Sarika HEEBRT, Peggy? A, Wagner? NG, et al: Rapid clozapine titration in patients with treatment refractory schizophrenia. Psychiatr Q 2016; 87(2):315-322. I spent minutes with the patient and/or on the patient floor today, noe ter [facility]lin?50% of which was spent counseling/coordinating care. Reason for contiued inpatient stay Substantial Risk for: harm to self, rapid decompensation and med/psych decompensation
[2021-08-28 18:00] VITALS: BP 131/94; PULSE 78
[2021-08-28] MEDS: cloZAPine 25 MG TABLET 75 MG PO (20:10)
[2021-08-29 06:00] VITALS: BP 126/83; PULSE 88; RESP 18; TEMP 36.2; O2SAT 96
[2021-08-29 08:29] LABS: MANUAL DIFF FLAG NO
[2021-08-29 08:35] LABS: Basophils Percent Auto 0.4 % (0-2); Eosinophils Absolute Auto 0.3 X10*3/uL (0.0-0.4); Eosinophils Percent Auto 4.4 % (0-4); Hematocrit 44.1 % (42.0-52.0); Hemoglobin 14.9 g/dl (14.0-18.0); Imm Gran Abs Auto 0.01 X10*3/uL (0.00-0.03); Imm Gran Pct Auto 0.1 % (0.0-0.4); Lymphocytes Percent Auto 29.5 % (20-40); Mean Corpuscular HGB Conc 33.8 g/dl (31.0-36.0); Mean Corpuscular Volume 88.9 fL (80.0-98.0); Mean Platelet Volume 10.3 fL (9.4-12.4); Monocytes Absolute Auto 0.7 X10*3/uL (0.1-1.2); Monocytes Percent Auto 9.5 % (2-11); Neutrophils Absolute Auto 3.8 x10*3/uL (2.0-8.3); Neutrophils Percent Auto 56.1 % (45-73); Platelet Count 217 X10*3/uL (160-400); Red Blood Count 4.96 X10*6/uL (4.60-5.80); Red Cell Distribution Width 12.9 % (11.0-16.0); White Blood Count 6.8 X10*3/uL (4.8-10.8)
--- NOTE | 2021-08-29 14:08 | P.PNPSI_ITS ---
Subjective Subjective Date of Service: 08/29/21 Reason For Visit: Suicidal Interim History: pt remains on willing to engage, answering with only a few words. He says that he has all right. Java Flex Developer asked if the medications are reducing his anxiety or stress or burden which patient says I really do not know but is not willing to discuss it further or give any details. Denies any medication side effects. No questions, no complaints Mental Status Exam Mental Status Exam Narrative: pt is alert to self, time, and situation (though does not think he has mental illness); appearance is appropriate; behavior is guarded and reticent, though calm, mostly keeping to himself and pacing hallways; adequate eye contact; mood is alright and affect is constricted; thought process is goal oriented; thought content is on [facility]; otherwise guarded but alluding to continued perseveration on paranoid, persecutory delusions about being tortured; denies SI though typically intermittent SI as fulfillment of task assigned to him by persecutors; patient believes he receives messages through various avenues, having thoughts implanted in his head or communications given through media which he typically avoids. Denies [facility]. ?Patients insight and judgment are impaired Diagnostics Vital Signs (24Hr): Vital Signs - 24 hr 08/28/21 18:00 08/29/21 06:00 Temperature 97.2 F Pulse Rate 78 88 Respiratory Rate 18 Blood Pressure 131/94 H 126/83 Pulse Oximetry 96 Labs Results: 08/29/21 08:12 08/09/21 18:43 Labs: Laboratory Results - last 48 hr 08/29/21 08:12 WBC 6.8 RBC 4.96 Hgb 14.9 Hct 44.1 MCV 88.9 MCH 30.0 MCHC 33.8 RDW 12.9 Plt Count 217 MPV 10.3 Immature Gran % (Auto) 0.1 Neut % (Auto) 56.1 Lymph % (Auto) 29.5 [place] % (Auto) 9.5 Eos % (Auto) 4.4 H Baso % (Auto) 0.4 Lymph # (Auto) 2.0 [place] # (Auto) 0.7 Eos # (Auto) 0.3 Baso # (Auto) 0.0 Abs Immat Gran (auto) 0.01 Absolute Neuts (auto) 3.8 Absolute Nucleated RBC 0.000 Nucleated RBC % (auto) 0.0 Medications Medications Current Medications Acetaminophen (Acetaminophen 325 Mg Tablet) 650 mg PO Q6H PRN PRN Reason: Pain, Mild (Pain Scale 1-3) Al Hydroxide/Mg Hydroxide (Magnesium Hydrox/Alum Hydrox 30 Ml Oral.Susp) 30 ml PO Q6H PRN PRN Reason: Heartburn/Nausea Calcium Carbonate (Calcium Carbonate 750 Mg Tab.Chew) 750 mg PO Q4H PRN PRN Reason: Indigestion Last Admin: 08/06/21 19:35 Dose: 750 mg Documented by: Clozapine (Clozapine 25 Mg Tablet) 75 mg PO BEDTIME FIDEL Last Admin: 08/28/21 20:10 Dose: 75 mg Documented by: Diphenhydramine HCl (Diphenhydramine Hcl 25 Mg Tablet) 50 mg PO Q4H PRN PRN Reason: agitation Last Admin: 07/26/21 09:00 Dose: 50 mg Documented by: Hydroxyzine HCl (Hydroxyzine Hcl 25 Mg Tablet) 25 mg PO BEDTIME PRN PRN Reason: Anxiety Last Admin: 08/04/21 21:07 Dose: 25 mg Documented by: Magnesium Hydroxide (Milk Of Magnesia 30 Ml Oral.Susp) 30 ml PO DAILY PRN PRN Reason: Constipation Nicotine Polacrilex (Nicotine Polacrilex 2 Mg Gum) 2 mg BUCCAL Q2H PRN PRN Reason: Nicotine Cravings Trazodone HCl (Trazodone Hcl 50 Mg Tablet) 50 mg PO BEDTIME PRN PRN Reason: Insomnia Ziprasidone (Ziprasidone 20 Mg Capsule) 20 mg PO TID PRN PRN Reason: agitation Ziprasidone (Ziprasidone Mesylate 20 Mg Vial) 20 mg IM DAILY PRN PRN Reason: on Euceda; if refuses PO Last Admin: 08/20/21 21:03 Dose: 20 mg Documented by: Allergies Allergies Allergy/AdvReac Type Severity Reaction Status Date / Time olanzapine [OLANZAPINE] Allergy Severe FACIAL Verified 04/06/21 10:20 SWELLING Assessment & Plan Assessment & Plan (1) Schizoaffective disorder: Status: Chronic Code(s): F25.9 - Schizoaffective disorder, unspecified Assessment and Plan: started meds few days ago - tolerating so far- maybe calmer due to it still pretty shut down (2) Starvation ketoacidosis: Status: Resolved Code(s): E87.2 - Acidosis Assessment and Plan: denies current plan for this (3) PTSD (post-traumatic stress disorder): Status: Suspected Code(s): F43.10 - Post-traumatic stress disorder, unspecified Assessment and Plan: Impression: Patient is a 35-year-old male with history of schizophrenia, paranoid type who presents for paranoid, persecutory delusions, in the face of going off medications, prompting pt to attempt suicide by starvation and water dep rivation. While trying to starve himself to , and just days before this admission, patient also attempted to kill himself by overdosing on Tylenol; when this did not work he tried again at a higher dose. Pt now presents to [facility]5 from medical floor where he required fluid resuscitation,?electrolytes replenished and treatment for starvation ketoacidosis, hypernatremia and acute kidney injury.? Pt now medically cleared and transferred to psychiatric unit. ?Patient was recently discharged from the unit around 05/13/2021. HOspital course: Patient currently suffers from severe paranoid persecutory delusions that frequently direct him to harm himself in order to save his family from future torture.? Patient has no insight.? Currently refuses medications and remains on Section 12 B. he says he does not necessarily want to leave the hospital, nor does he want to stay but does not want to sign a CV worried that it will be unacceptable to his persecutors. -patient remains in severe mental anguish over what is the right thing to do, very worried about making the wrong decision which will aggravate his persecutors and therefor put his family in future jeopardy; patient eventually decided to sign a CV but then later signed a 3 day notice.? He agreed to take Clozaril but then was again ambivalent.? Patient remains willing to self-harm to the point of suicide based on paranoid delusions that he must do so in order to save his family from future torment. -over the weekend patient was screaming, out of control and required medication restraint 07/11 patient remains with joel paranoid, persecutory delusions, thoughts to starve himself to based on paranoid delusion, no insight and impaired judgment. -currently he is eating and drinking but only minimally 07/12 pt decided to take Clozaril 07/13:? Patient is tormented seems to have reached a boiling point and he agreed to take Clozaril and sign in 07/15- says he will try a new approach to his decision making; agrees to continue taking Clozaril.? Remains guarded, and with paranoid delusions 07/21 floridly psychotic with intense paranoid, persecutory delusions that are overwhelming patient into repeated unsafe thinking or behavior including suicide, and starvation and water deprivation.? Patient has no insight and does not believe that medications help at all; he goes back and forth about whether to take medications as he's very anxious about contradicting his persecutors whom he believes give him messages directing his behavior. 07/23 pt again decided to stop taking medications, a frequent decision emerging every few days as patient again feels that it's safer to listen to his persecutors (paranoid delusions) then it is to go against their edict and take medications. Over the past 2 weeks, only after lengthy discussions, would patient change his mind and go back to taking medications; however this reversion is not due to any moment of insight but rather a combination of emotional exhaustion and him trying to find a loophole in his persecutors edict to not take medications. -patient put in 3 day notice 07/24-07/28: sometimes withdrawn; sometimes agitated, yelling in anguished distress about being threatened by tormentors; intermittently taking medications 07/29 - rescinded 3 day notice -since then, he's agreed to take medications, though this is intermittent; taking medications however does not represent improved insight or judgment, but as patient explains, is only done because he has for the moment not concluded that They, his torementors, have specifically barred him from doing so. This makes medication management difficult since he is on Clozaril which has a narrow window for which one can safely start/stop this med. om -He continues to intermittently stop Eating and drinking in obedience to paranoid delusion with idea that he should either commit suicide or undergo some other torture; remains without insight; remains anguished. He volunteers that he has received direction on how to kill himself post discharge and he intermittently has plans to kill himself on the unit, though he has thus far been able to limit his actions towards this end. Patient believes he receives messages through various avenues, having thoughts implanted in his head or communications given through media or circumstance. Patient reports he wants to trust this conventional underwriter and staff but is never sure whether or not conventional underwriter/staff is part of a conspiracy to torture him. on 08/08: Patient exhibited bizarre, generating movements of primarily his upper torso; keya sal examined patient and this was not dystonia, akathisia and was not seizure activity but rather patient's own voluntary behavior done in obedience to direction from his imagined persecutor; pt later confirmed this. NMS ruled out -labs (afebrile, autonomic stable; LDH wnl; CPK elevated as expec timothy). Clozapine induced myoclonus considered but again given patient's presentation and his own self reporting that these movements are guided by delusional thought, very unlikely. Patient told conventional underwriter that since medications are being given to treat a mental illness, which he does not believe he has, he will no longer take medications -08/10required IM medication, chemical restraint for wild in unsafe behavior, hitting his head against the wall unable to be redirected 08/11 more calm; body movements not present; can advance to q5 and off 1:1 for now (discussed with staff who agree). 08/18 -pt restarted on Clozapine (on 08/17) -calm on unit, but not willing to enage in talk therapy; mostly pacing halls during day -Bizarre body movements remain resolved? -patient's movements voluntary and done in obedience to delusion 08/23: Patient remains difficult to engage in is only superficially interactive with conventional underwriter which has been the case since a few days before court. Will continue to titrate Clozaril. pt denies med side-effects -pt agreed to Covid vaccination; he was not interested in hearing about risks/side-effects though conventional underwriter discussed anyway; he asked if he could get Flu vaccination and nursing will review to make sure he did not already get. ?Pt got Moderna X1 on 08/24/2108/26: no changes in med regimen, continue clozapine 08/27: Pt will continue on clozapine trial, which is being adjusted as tolerated for efficacy 08/28: Pt is redirectable, accepting treatment, will continue on clozapine trial for psychosis, SI Barrier to discharge:? Patient is floridly psychotic; he has no insight and currently suffers from paranoid, persecutory delusions, believing he needs to either kill himself or engage in behaviors that will result in , in order to fulfill his persecutors demands; if discharged before stable, patient will quickly decompensate and be at high risk for suicide; he requires locked unit, and likely a custodial admission, to resolve symptoms with medication management.?[facility] application submitted:? Java Flex Developer reviewed case with Dr. Mcleod and other team members and it was discussed whether or not Dilshad needs a longer term hospitalization such as [facility]. Patient recently revealed that over the days/weeks prior to this admission, in addition to trying to starve/dehydrate himself to , he tried to kill himself 2x by Tylenol overdose, making conventional underwriter more aware of the extent of his unsafe behavior. Patient remains without any insight at all. He is fully overwhelmed by persecutory delusions. At this point it is becoming increasing difficult for conventional underwriter to imagine a scenario where Dilshad is safe outside of a longer term commitment where he is court ordered to take medications. For while he has indeed benefited from Clozapine (improved mood, relief from emotional anguish and reprieve from being contacted by persecutors [delusions]) his illness keeps him from attributing that benefit to medication; rather he maintains that medications are placebos and his relief is due to some other cause; and thus, on his own, patient's illness renders him unable to remain adherent with medications. However, if Dilshad had an extended hospital stay and remained on medications for an extended period of months, he may experience his relief from torture? as a product of medications and thus achieve enough insight to remain on medications as an outpatient. Team discussed and fully agrees that patient requires [facility] admission for his safety. PLAN: q5min checks (currently no unsafe behaviors) Court ordered involuntary commitment; court ordered substituted judgment/Euceda for medication Titrate CLOZARIL to 75MG Q.H.S (on 08/27)., will titrate; cannot refuse; give IM Ziprasidone if refuses Or see Moderna X1 on 08/24/21 Ziprasidone 20mg IM if refuses Clozaril -Team agrees that patient requires custodial admission and submitted application to [facility] -scheduled clonazepam 0.25 mg b.i.d. PRN for anxiety Micromedex: 1)?Rapid titration in hospitalized patients: Day 1, 50 mg orally followed by 50 to 100 mg as needed every 6 hours (up to an additional 150 mg). Thereafter, may increase daily dosage in increments of 50 to 100 mg. Mean dosage on day 1 was 207 mg/day in patients with prior clozapine exposure and 59.7 mg without prior exposure. Mean titration over 5.44 days to a dosage of 260 mg/day, lead to a mean dosage at discharge of 322 mg/day ?Sarika HEBERT, Peggy? A, Wagner? NG, et al: Rapid clozapine titration in patients with treatment refractory schizophreni a. Psychiatr Q 2016; 87(2):315-322. I spent minutes with the patient and/or on the patient floor today, greater than?50% of which was spent counseling/coordinating care. Reason for contiued inpatient stay Substantial Risk for: harm to self
[2021-08-29 18:00] VITALS: BP 120/76; PULSE 81; TEMP 36.9
[2021-08-29] MEDS: cloZAPine 25 MG TABLET 75 MG PO (20:31)
[2021-08-30 06:00] VITALS: BP 111/67; PULSE 87; RESP 16; TEMP 36.6; O2SAT 96
--- NOTE | 2021-08-30 16:15 | P.PNPSI_ITS ---
Subjective Subjective Date of Service: 08/30/21 Reason For Visit: Suicidal Interim History: Patient remains reticent; does not want to engage any further than saying that he is fine, that he denies any complaints and has no requests. That said, he is calm and polite in his refusal to engage. Patient mostly keeps to himself, paces up and down the hallway and sometimes sits in the kitchen watching television with peers. Patient watching television is a change since he normally avoids media as he reports he gets messages from his persecutors via media; patient will not discuss this change with advertising copy writer Mental Status Exam Mental Status Exam Narrative: pt is alert to self, time, and situation (though does not think he has mental illness); appearance is appropriate; behavior is guarded and reticent, though calm, mostly keeping to himself and pacing hallways; adequate eye contact; mood is fine and affect is constricted; thought process is goal oriented; thought content is on [facility]; otherwise guarded but alluding to continued perseveration on paranoid, persecutory delusions about being tortured; denies SI though typically intermittent SI as fulfillment of task assigned to him by persecutors; patient believes he receives messages through various avenues, having thoughts implanted in his head or communications given through media which he typically avoids. Denies [facility]. ?Patients insight and judgment are impaired Diagnostics Vital Signs (24Hr): Vital Signs - 24 hr 08/29/21 18:00 08/30/21 06:00 Temperature 98.5 F 97.9 F Pulse Rate 81 87 Respiratory Rate 16 Blood Pressure 120/76 111/67 Pulse Oximetry 96 Labs Results: 08/29/21 08:12 08/09/21 18:43 Labs: Laboratory Results - last 48 hr 08/29/21 08:12 WBC 6.8 RBC 4.96 Hgb 14.9 Hct 44.1 MCV 88.9 MCH 30.0 MCHC 33.8 RDW 12.9 Plt Count 217 MPV 10.3 Immature Gran % (Auto) 0.1 Neut % (Auto) 56.1 Lymph % (Auto) 29.5 [place] % (Auto) 9.5 Eos % (Auto) 4.4 H Baso % (Auto) 0.4 Lymph # (Auto) 2.0 [place] # (Auto) 0.7 Eos # (Auto) 0.3 Baso # (Auto) 0.0 Abs Immat Gran (auto) 0.01 Absolute Neuts (auto) 3.8 Absolute Nucleated RBC 0.000 Nucleated RBC % (auto) 0.0 Medications Medications Current Medications Acetaminophen (Acetaminophen 325 Mg Tablet) 650 mg PO Q6H PRN PRN Reason: Pain, Mild (Pain Scale 1-3) Al Hydroxide/Mg Hydroxide (Magnesium Hydrox/Alum Hydrox 30 Ml Oral.Susp) 30 ml PO Q6H PRN PRN Reason: Heartburn/Nausea Calcium Carbonate (Calcium Carbonate 750 Mg Tab.Chew) 750 mg PO Q4H PRN PRN Reason: Indigestion Last Admin: 08/06/21 19:35 Dose: 750 mg Documented by: Clozapine (Clozapine 25 Mg Tablet) 75 mg PO BEDTIME FIDEL Last Admin: 08/29/21 20:31 Dose: 75 mg Documented by: Diphenhydramine HCl (Diphenhydramine Hcl 25 Mg Tablet) 50 mg PO Q4H PRN PRN Reason: agitation Last Admin: 07/26/21 09:00 Dose: 50 mg Documented by: Hydroxyzine HCl (Hydroxyzine Hcl 25 Mg Tablet) 25 mg PO BEDTIME PRN PRN Reason: Anxiety Last Admin: 08/04/21 21:07 Dose: 25 mg Documented by: Magnesium Hydroxide (Milk Of Magnesia 30 Ml Oral.Susp) 30 ml PO DAILY PRN PRN Reason: Constipation Nicotine Polacrilex (Nicotine Polacrilex 2 Mg Gum) 2 mg BUCCAL Q2H PRN PRN Reason: Nicotine Cravings Trazodone HCl (Trazodone Hcl 50 Mg Tablet) 50 mg PO BEDTIME PRN PRN Reason: Insomnia Ziprasidone (Ziprasidone 20 Mg Capsule) 20 mg PO TID PRN PRN Reason: agitation Ziprasidone (Ziprasidone Mesylate 20 Mg Vial) 20 mg IM DAILY PRN PRN Reason: on Euceda; if refuses PO Last Admin: 08/20/21 21:03 Dose: 20 mg Documented by: Allergies Allergies Allergy/AdvReac Type Severity Reaction Status Date / Time olanzapine [OLANZAPINE] Allergy Severe FACIAL Verified 04/06/21 10:20 SWELLING Assessment & Plan Assessment & Plan (1) Schizoaffective disorder: Status: Chronic Code(s): F25.9 - Schizoaffective disorder, unspecified Assessment and Plan: started meds few days ago - tolerating so far- maybe calmer due to it still pretty shut down (2) Starvation ketoacidosis: Status: Resolved Code(s): E87.2 - Acidosis Assessment and Plan: denies current plan for this (3) PTSD (post-traumatic stress disorder): Status: Suspected Code(s): F43.10 - Post-traumatic stress disorder, unspecified Assessment and Plan: Impression: Patient is a 35-year-old male with history of schizophrenia, paranoid type who presents for paranoid, persecutory delusions, in the face of going off [employer] edPhosImmune, prompting pt to attempt suicide by starvation and water deprivation. While trying to starve himself to , and just days before this admission, patient also attempted to kill himself by overdosing on Tylenol; when this did not work he tried again at a higher dose. Pt now presents to [facility]5 from medical floor where he required fluid resuscitation,?electrolytes replenished and treatment for starvation ketoacidosis, hypernatremia and acute kidney injury.? Pt now medically cleared and transferred to psychiatric unit. ?Patient was recently discharged from the unit around 05/13/2021. HOspital course: Patient currently suffers from severe paranoid persecutory delusions that frequently direct him to harm himself in order to save his family from future torture.? Patient has no insight.? Currently refuses medications and remains on Section 12 B. he says he does not necessarily want to leave the hospital, nor does he want to stay but does not want to sign a CV worried that it will be unacceptable to his persecutors. -patient remains in severe mental anguish over what is the right thing to do, very worried about making the wrong decision which will aggravate his persecutors and therefor put his family in future jeopardy; patient eventually decided to sign a CV but then later signed a 3 day notice.? He agreed to take Clozaril but then was again ambivalent.? Patient remains willing to self-harm to the point of suicide based on paranoid delusions that he must do so in order to save his family from future torment. -over the weekend patient was screaming, out of control and required medication restraint 07/11 patient remains with joel paranoid, persecutory delusions, thoughts to starve himself to based on paranoid delusion, no insight and impaired judgment. -currently he is eating and drinking but only minimally 07/12 pt decided to take Clozaril 07/13:? Patient is tormented seems to have reached a boiling point and he agreed to take Clozaril and sign in 07/15- says he will try a new approach to his decision making; agrees to continue taking Clozaril.? Remains guarded, and with paranoid delusions 07/21 floridly psychotic with intense paranoid, persecutory delusions that are overwhelming patient into repeated unsafe thinking or behavior including suicide, and starvation and water deprivation.? Patient has no insight and does not believe that medications help at all; he goes back and forth about whether to take medications as he's very anxious about contradicting his persecutors whom he believes give him messages directing his behavior. 07/23 pt again decided to stop taking medications, a frequent decision emerging every few days as patient again feels that it's safer to listen to his persecutors (paranoid delusions) then it is to go against their edict and take medications. Over the past 2 weeks, only after lengthy discussions, would patient change his mind and go back to taking medications; however this reversion is not due to any moment of insight but rather a combination of emotional exhaustion and him trying to find a loophole in his persecutors edict to not take medications. -patient put in 3 day notice 07/24-07/28: sometimes withdrawn; sometimes agitated, yelling in anguished distress about being threatened by tormentors; intermittently taking medications 07/29 - rescinded 3 day notice -since then, he's agreed to take medications, though this is intermittent; taking medications however does not represent improved insight or judgment, but as patient explains, is only done because he has for the moment not concluded that They, his torementors, have specifically barred him from doing so. This makes medication management difficult since he is on Clozaril which has a narrow window for which one can safely start/stop this med. om -He continues to intermittently stop Eating and drinking in obedience to paranoid delusion with idea that he should either commit suicide or undergo some other torture; remains without insight; remains anguished. He volunteers that he has received direction on how to kill himself post discharge and he intermittently has plans to kill himself on the unit, though he has thus far been able to limit his actions towards this end. Patient believes he receives messages through various avenues, having thoughts implanted in his head or communications given through media or circumstance. Patient reports he wants to trust this advertising copy writer and staff but is never sure whether or not advertising copy writer/staff is part of a conspiracy to torture him. on 08/08: Patient exhibited bizarre, generating movements of primarily his upper torso; advertising copy writer examined patient and this was not dystonia, akathisia and was not seizure activity but rather patient's own voluntary behavior done in obedience to direction from his imagined persecutor; pt later confirmed this. NMS ruled out -labs (afebrile, autonomic stable; LDH wnl; CPK elevated as expected). Clozapine induced myoclonus considered but again given patient's presentation and his own self reporting that these movements are guided by delusional thought, very unlikely. Patient told advertising copy writer that since medications are being given to treat a mental illness, which he does not believe he has, he will no longer take medications -08/10required IM medication, chemical restraint for wild in unsafe behavior, hitting his head against the wall unable to be redirected 08/11 more calm; body movements not present; can advance to q5 and off 1:1 for now (discussed with staff who agree). 08/18 -pt restarted on Clozapine (on 08/17) -calm on unit, but not willing to enage in talk therapy; mostly pacing halls during day -Bizarre body movements remain resolved? -patient's movements voluntary and done in obedience to delusion 08/23: Patient remains difficult to engage in is only superficially interactive with advertising copy writer which has been the case since a few days before court. Will continue to titrate Clozaril. pt denies med side-effects -pt agreed to Covid vaccination; he was not interested in hearing about risks/side-effects though advertising copy writer discussed anyway; he asked if he could get Flu vaccination and nursing will review to make sure he did not already get. ?Pt got Moderna X1 on 08/24/2108/26: no changes in med regimen, continue clozapine 08/27: Pt will continue on clozapine trial, which is being adjusted as tolerated for efficacy 08/28: Pt is redirectable, accepting treatment, will continue on clozapine trial for psychosis, SI -no change; politely refuses to engage; denies complaints and has no requests; mostly keeps to himself and often paces the hallways. Barrier to discharge:? Patient is floridly psychotic; he has no insight and currently suffers from paranoid, persecutory delusions, believing he needs to either kill himself or engage in behaviors that will result in , in order to fulfill his persecutors demands; if discharged before stable, patient will quickly decompensate and be at high risk for suicide; he requires locked unit, and likely a senior living admission, to resolve symptoms with medication management.?[facility] application submitted:? Field Contact Person reviewed case with Dr. Mcleod and other team members and it was discussed whether or not Dilshad needs a longer term hospitalization such as [facility]. Patient recently revealed that over the days/weeks prior to this admission, in addition to trying to starve/dehydrate himself to , he tried to kill himself 2x by Tylenol overdose, making advertising copy writer more aware of the extent of his unsafe behavior. Patient remains without any insight at all. He is fully overwhelmed by persecutory delusions. At this point it is becoming increasing difficult for advertising copy writer to imagine a scenario where Dilshad is safe outside of a longer term commitment where he is court ordered to take medications. For while he has indeed benefited from Clozapine (improved mood, relief from emotional anguish and reprieve from being contacted by persecutors [delusions]) his illness keeps him from attributing that benefit to medication; rather he maintains that medications are placebos and his relief is due to some other cause; and thus, on his own, patient's illness renders him unable to remain adherent with medications. However, if Dilshad had an extended hospital stay and remained on medications for an extended period of months, he may experience his relief from torture? as a product of medications and thus achieve enough insight to remain on medications as an outpatient. Team discussed and fully agrees that patient requires [facility] admission for his safety. 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 PRN for anxiety Micromedex: 1)?Rapid titration in hospitalized patients: Day 1, 50 mg orally followed by 50 to 100 mg as needed every 6 hours (up to an additional 150 mg). Thereafter, may increase daily dosage in increments of 50 to 100 mg. Mean dosage on day 1 was 207 mg/day in patients with prior clozapine exposure and 59.7 mg without prior exposure. Mean titration over 5.44 days to a dosage of 260 mg/day, lead to a mean dosage at discharge of 322 mg/day ?Sarika HEBERT, Peggy? A, Wagner? NG, et al: Rapid clozapine titration in patients with treatment refractory schizoph blanco. Psychiatr Q 2016; 87(2):315-322. I spent minutes with the patient and/or on the patient floor today, greater than?50% of which was spent counseling/coordinating care. Reason for contiued inpatient stay Substantial Risk for: harm to self
[2021-08-30 19:30] VITALS: BP 112/63; PULSE 83; RESP 16; TEMP 36.4; O2SAT 95
[2021-08-30] MEDS: cloZAPine 25 MG TABLET 75 MG PO (19:32)
--- NOTE | 2021-08-31 13:37 | P.PNPSI_ITS ---
Subjective Subjective Date of Service: 08/31/21 Reason For Visit: Suicidal Interim History: Politely says that he has nothing to to discuss that he is doing all right and is able to stay safe family unit; politely declines to talk further. Staff report no inappropriate behaviors; sleeping at night Mental Status Exam Mental Status Exam Narrative: ?pt is alert to self, time, and situation (though does not think he has mental illness); appearance is appropriate; behavior is guarded and reticent, though calm, mostly keeping to himself and pacing hallways; adequate eye contact; mood is alright and affect is constricted; thought process is goal oriented; thought content is on [facility]; otherwise guarded but alluding to continued perseveration on paranoid, persecutory delusions about being tortured; denies SI though typically intermittent SI as fulfillment of task assigned to him by persecutors; patient believes he receives messages through various avenues, having thoughts implanted in his head or communications given through media which he typically avoids. Denies [facility]. ?Patients insight and judgment are impaired Diagnostics Vital Signs (24Hr): Vital Signs - 24 hr 08/30/21 19:30 Temperature 97.6 F Pulse Rate 83 Respiratory Rate 16 Blood Pressure 112/63 Pulse Oximetry 95 Labs Results: 08/29/21 08:12 08/09/21 18:43 Medications Medications Current Medications Acetaminophen (Acetaminophen 325 Mg Tablet) 650 mg PO Q6H PRN PRN Reason: Pain, Mild (Pain Scale 1-3) Al Hydroxide/Mg Hydroxide (Magnesium Hydrox/Alum Hydrox 30 Ml Oral.Susp) 30 ml PO Q6H PRN PRN Reason: Heartburn/Nausea Calcium Carbonate (Calcium Carbonate 750 Mg Tab.Chew) 750 mg PO Q4H PRN PRN Reason: Indigestion Last Admin: 08/06/21 19:35 Dose: 750 mg Documented by: Diphenhydramine HCl (Diphenhydramine Hcl 25 Mg Tablet) 50 mg PO Q4H PRN PRN Reason: agitation Last Admin: 07/26/21 09:00 Dose: 50 mg Documented by: Hydroxyzine HCl (Hydroxyzine Hcl 25 Mg Tablet) 25 mg PO BEDTIME PRN PRN Reason: Anxiety Last Admin: 08/04/21 21:07 Dose: 25 mg Documented by: Magnesium Hydroxide (Milk Of Magnesia 30 Ml Oral.Susp) 30 ml PO DAILY PRN PRN Reason: Constipation Nicotine Polacrilex (Nicotine Polacrilex 2 Mg Gum) 2 mg BUCCAL Q2H PRN PRN Reason: Nicotine Cravings Trazodone HCl (Trazodone Hcl 50 Mg Tablet) 50 mg PO BEDTIME PRN PRN Reason: Insomnia Ziprasidone (Ziprasidone 20 Mg Capsule) 20 mg PO TID PRN PRN Reason: agitation Ziprasidone (Ziprasidone Mesylate 20 Mg Vial) 20 mg IM DAILY PRN PRN Reason: on Euceda; if refuses PO Last Admin: 08/20/21 21:03 Dose: 20 mg Documented by: Allergies Allergies Allergy/AdvReac Type Severity Reaction Status Date / Time olanzapine [OLANZAPINE] Allergy Severe FACIAL Verified 04/06/21 10:20 SWELLING Assessment & Plan Assessment & Plan (1) Schizoaffective disorder: Status: Chronic Code(s): F25.9 - Schizoaffective disorder, unspecified Assessment and Plan: started meds few days ago - tolerating so far- maybe calmer due to it still pretty shut down (2) Starvation ketoacidosis: Status: Resolved Code(s): E87.2 - Acidosis Assessment and Plan: denies current plan for this (3) PTSD (post-traumatic stress disorder): Status: Suspected Code(s): F43.10 - Post-traumatic stress disorder, unspecified Assessment and Plan: Impression: Patient is a 35-year-old male with history of schizophrenia, paranoid type who presents for paranoid, persecutory delusions, in the face of going off medications, prompting pt to attempt suicide by starvation and water deprivation. While trying to starve himself to , and just days before this admission, patient also attempted to kill himself by overdosing on Tylenol; when this did not work he tried again at a higher dose. Pt now presents to [facility]5 from medical floor where he required fluid resuscitation,?electrolytes replenished and treatment for starvation ketoacidosis, hypernatremia and acute kidney injury.? Pt now medically cleared and transferred to psychiatric unit. ?Patient was recently discharged from the unit around 05/13/2021. HOspital course: Patient currently suffers from severe paranoid persecutory delusions that frequently direct him to harm himself in order to save his family from future torture.? Patient has no insight.? Currently refuses medications and remains on Section 12 B. he says he does not necessarily want to leave the hospital, nor does he want to stay but does not want to sign a CV worried that it will be unacceptable to his persecutors. -patient remains in severe mental anguish over what is the right thing to do, very worried about making the wrong decision which will aggravate his persecutors and therefor put his family in future jeopardy; patient eventually decided to sign a CV but then later signed a 3 day notice.? He agreed to take Clozaril but then was again ambivalent.? Patient remains willing to self-harm to the point of suicide based on paranoid delusions that he must do so in order to save his family from future torment. -over the weekend patient was screaming, out of control and required medication restraint 07/11 patient remains with joel paranoid, persecutory delusions, thoughts to starve himself to based on paranoid delusion, no insight and impaired judgment. -currently he is eating and drinking but only minimally 07/12 pt decided to take Clozaril 07/13:? Patient is tormented seems to have reached a boiling point and he agreed to take Clozaril and sign in 07/15- says he will try a new approach to his decision making; agrees to continue taking Clozaril.? Remains guarded, and with paranoid delusions 07/21 floridly psychotic with intense paranoid, persecutory delusions that are overwhelming patient into repeated unsafe thinking or behavior including suicide, and starvation and water deprivation.? Patient has no insight and does not believe that medications help at all; he goes back and forth about whether to take medications as he's very anxious about contradicting his persecutors whom he believes give him messages directing his behavior. 07/23 pt again decided to stop taking medications, a frequent decision emerging every few days as patient again feels that it's safer to listen to his p ersecutors (paranoid delusions) then it is to go against their edict and take medications. Over the past 2 weeks, only after lengthy discussions, would patient change his mind and go back to taking medications; however this reversion is not due to any moment of insight but rather a combination of em otional exhaustion and him trying to find a loophole in his persecutors edict to not take medications. -patient put in 3 day notice 07/24-07/28: sometimes withdrawn; sometimes agitated, yelling in anguished distress about being threatened by tormentors; intermittently taking medications 07/29 - rescinded 3 day notice -since then, he's agreed to take medications, though this is intermittent; takin g medications however does not represent improved insight or judgment, but as patient explains, is only done because he has for the moment not concluded that They, his torementors, have specifically barred him from doing so. This makes medication management difficult since he is on Clozaril which has a narrow window for which one can safely start/stop this med. om -He continues to intermittently stop Eating and drinking in obedience to paranoid delusion with idea that he should either commit suicide or undergo some other torture; remains without insight; remains anguished. He volunteers that he has received direction on how to kill himself post discharge and he in termittently has plans to kill himself on the unit, though he has thus far been able to limit his actions towards this end. Patient believes he receives messages through various avenues, having thoughts implanted in his head or communications given through media or circumstance. Patient reports he wants to trust this proposal writer and staff but is never sure whether or not proposal writer/staff is part of a conspiracy to torture him. on 08/08: Patient exhibited bizarre, generating movements of primarily his upper torso; proposal writer examined patient and this was not dystonia, akathisia and was not seizure activity but rather patient's own voluntary behavior done in obedience to direction from his imagined persecutor; pt later confirmed this. NMS ruled out -labs (afebrile, autonomic stable; LDH wnl; CPK elevated as expected). Clozapine induced myoclonus considered but again given patient's presentation and his own self reporting that these movements are guided by delusional thought, very unlikely. Patient told proposal writer that since medications are being given to treat a mental illness, which he does not believe he has, he will no longer take medications -08/10required IM medication, chemical restraint for wild in unsafe behavior, hitting his head against the wall unable to be redirected 08/11 more calm; body movements not present; can advance to q5 and off 1:1 for now (discussed with staff who agree). 08/18 -pt restarted on Clozapine (on 08/17) -calm on unit, but not willing to enage in talk therapy; mostly pacing halls during day -Bizarre body movements remain resolved? -patient's movements voluntary and done in obedience to delusion 08/23: Patient remains difficult to engage in is only superficially interactive with proposal writer which has been the case since a few days before court. Will con tinue to titrate Clozaril. pt denies med side-effects -pt agreed to Covid vaccination; he was not interested in hearing about risks/side-effects though proposal writer discussed anyway; he asked if he could get Flu vaccination and nursing will review to make sure he did not already get. ?Pt got Moderna X1 on 08/24/2108/26: no changes in med regimen, continue clozapine 08/27: Pt will continue on clozapine trial, which is being adjusted as tolerated for efficacy 08/28: Pt is redirectable, accepting treatment, will continue on clozapine trial for psychosis, SI -no change; politely refuses to engage; denies complaints and has no requests; mostly keeps to himself and often paces the hallways. Barrier to discharge:? Patient is floridly psychotic; he has no insight and currently suffers from paranoid, persecutory delusions, believing he needs to either kill himself or engage in behaviors that will result in , in order to fulfill his persecutors demands; if discharged before stable, patient will quickly decompensate and be at high risk for suicide; he requires locked unit, and likely [place] [facility] admission, to resolve symptoms with medication management.?[facility] application submitted:? Crimping Machine Operator reviewed case with Dr. Mcleod and other team members and it was discussed whether or not Dilshad needs a longer term hospitalization such as [facility]. Patient recently revealed that over the days/weeks prior to this admission, in addition to trying to starve/dehydrate himself to , he tried to kill himself 2x by Tylenol overdose, making proposal writer more aware of the extent of his unsafe behavior. Patient remains without any insight at all. He is fully overwhelmed by persecutory delusions. At this point it is becoming increasing difficult for proposal writer to imagine a scenario where Dilshad is safe outside of a longer term commitment where he is court ordered to take medications. For while he has indeed benefited from Clozapine (improved mood, relief from emotional anguish and reprieve from being contacted by persecutors [delusions]) his illness keeps him from attributing that benefit to medication; rather he maintains that medications are placebos and his relief is due to some other cause; and thus, on his own, patient's illness renders him unable to remain adherent with medications. However, if Dilshad had an extended hospital stay and remained on medications for an extended period of months, he may experience his relief from torture? as a product of medications and thus achieve enough insight to remain on medications as an outpatient. Team discussed and fully agrees that patient requires [facility] admission for his safety. PLAN: q5min checks (currently no unsafe behaviors) Court ordered involuntary commitment; court ordered substituted judgment/Euceda for medication CLOZARIL to 100MG Q.H.S (on 08/31)., will continue to titrate; will consider faster titration however want to make sure patient does not get hypotensive (In the past he got toxicity during titration however this was in conjunction with taking SSRI) cannot refuse PO Clozaril; give IM Ziprasidone if refuses received Moderna X1 on 08/24/21 Ziprasidone 20mg IM if refuses Clozaril -Team agrees that patient requires [place] [facility] admission and submitted application to [facility] -changed scheduled clonazepam 0.25 mg b.i.d. PRN for anxiety Micromedex: 1)?Rapid titration in hospitalized patients: Day 1, 50 mg orally followed by 50 to 100 mg as needed every 6 hours (up to an additional 150 mg). Thereafter, may increase daily dosage in increments of 50 to 100 mg. Mean dosage on day 1 was 207 mg/day in patients with prior clozapine exposure and 59.7 mg without prior exposure. Mean titration over 5.44 days to a dosage of 260 mg/day, lead to a mean dosage at discharge of 322 mg/day ?Poyraz CA, Peggy? A, Saglam? NG, et al: Rapid clozapine titration in patients with treatment refractory schizophrenia. Psychiatr Q 2016; 87(2):315-322. I spent minutes with the patient and/or on the patient floor today, grea ter than?50% of which was spent counseling/coordinating care. Reason for contiued inpatient stay Substantial Risk for: harm to self
[2021-08-31 18:00] VITALS: BP 118/68; PULSE 82; RESP 16; TEMP 36.1
[2021-08-31] MEDS: cloZAPine 100 MG TABLET PO (20:59)
[2021-09-01 06:00] VITALS: BP 110/69; PULSE 99; RESP 14; TEMP 37; O2SAT 99
--- NOTE | 2021-09-01 17:26 | P.PNPSI_ITS ---
Subjective Subjective Date of Service: 09/01/21 Reason For Visit: Suicidal Interim History: guarded; willing to sit down with journalists and other writers, but not willing to engage, other than to say he's fine, safe and has no requests or complaints. [employer] Manager tried to engage with patient on symptoms but he is guarded; journalists and other writers referenced patients avoidance of TV to which pt says i never told you that. [employer] Career Manager apologized and sought to clarify his past comments on avoiding media to which he says I don't want to talk about this with you... Mental Status Exam Mental Status Exam Narrative: pt is alert to self, time, and situation (though does not think he has mental illness); appearance is appropriate; behavior is guarded and reticent, though calm, mostly keeping to himself and pacing hallways; adequate eye contact; mood is alright and affect is constricted; thought process is goal oriented; thought content is on [facility]; otherwise guarded but alluding to continued perseveration on paranoid, persecutory delusions about being tortured; denies SI though typically intermittent SI as fulfillment of task assigned to him by persecutors; patient believes he receives messages through various avenues, having thoughts implanted in his head or communications given through media which he typically avoids. Denies [facility]. ?Patients insight and judgment are impaired Diagnostics Vital Signs (24Hr): Vital Signs - 24 hr 08/31/21 18:00 09/01/21 06:00 Temperature 97 F 98.6 F Pulse Rate 82 99 Respiratory Rate 16 14 Blood Pressure 118/68 110/69 Pulse Oximetry 99 Labs Results: 08/29/21 08:12 08/09/21 18:43 Medications Medications Current Medications Acetaminophen (Acetaminophen 325 Mg Tablet) 650 mg PO Q6H PRN PRN Reason: Pain, Mild (Pain Scale 1-3) Al Hydroxide/Mg Hydroxide (Magnesium Hydrox/Alum Hydrox 30 Ml Oral.Susp) 30 ml PO Q6H PRN PRN Reason: Heartburn/Nausea Calcium Carbonate (Calcium Carbonate 750 Mg Tab.Chew) 750 mg PO Q4H PRN PRN Reason: Indigestion Last Admin: 08/06/21 19:35 Dose: 750 mg Documented by: Clozapine (Clozapine 100 Mg Tablet) 100 mg PO BEDTIME FIDEL Stop: 09/02/21 23:59 Last Admin: 08/31/21 20:59 Dose: 100 mg Documented by: Clozapine 100 mg/ Clozapine 25 (mg) 125 mg PO BEDTIME FIDEL Stop: 09/04/21 23:59 Clozapine 100 mg/ Clozapine 50 (mg) 150 mg PO BEDTIME FIDEL Diphenhydramine HCl (Diphenhydramine Hcl 25 Mg Tablet) 50 mg PO Q4H PRN PRN Reason: agitation Last Admin: 07/26/21 09:00 Dose: 50 mg Documented by: Hydroxyzine HCl (Hydroxyzine Hcl 25 Mg Tablet) 25 mg PO BEDTIME PRN PRN Reason: Anxiety Last Admin: 08/04/21 21:07 Dose: 25 mg Documented by: Magnesium Hydroxide (Milk Of Magnesia 30 Ml Oral.Susp) 30 ml PO DAILY PRN PRN Reason: Constipation Nicotine Polacrilex (Nicotine Polacrilex 2 Mg Gum) 2 mg BUCCAL Q2H PRN PRN Reason: Nicotine Cravings Trazodone HCl (Trazodone Hcl 50 Mg Tablet) 50 mg PO BEDTIME PRN PRN Reason: Insomnia Ziprasidone (Ziprasidone 20 Mg Capsule) 20 mg PO TID PRN PRN Reason: agitation Ziprasidone (Ziprasidone Mesylate 20 Mg Vial) 20 mg IM DAILY PRN PRN Reason: on Euceda; if refuses PO Last Admin: 08/20/21 21:03 Dose: 20 mg Documented by: Allergies Allergies Allergy/AdvReac Type Severity Reaction Status Date / Time olanzapine [OLANZAPINE] Allergy Severe FACIAL Verified 04/06/21 10:20 SWELLING Assessment & Plan Assessment & Plan (1) Schizoaffective disorder: Status: Chronic Code(s): F25.9 - Schizoaffective disorder, unspecified Assessment and Plan: started meds few days ago - tolerating so far- maybe calmer due to it still pretty shut down (2) Starvation ketoacidosis: Status: Resolved Code(s): E87.2 - Acidosis Assessment and Plan: denies current plan for this (3) PTSD (post-traumatic stress disorder): Status: Suspected Code(s): F43.10 - Post-traumatic stress disorder, unspecified Assessment and Plan: Impression: Patient is a 35-year-old male with history of schizophrenia, paranoid type who presents for paranoid, persecutory delusions, in the face of going off medications, prompting pt to attempt suicide by starvation and water deprivation. While trying to starve himself to , and just days before this admission, patient also attempted to kill himself by overdosing on Tylenol; when this did not work he tried again at a higher dose. Pt now presents to from medical floor where he required fluid resuscitation,?electrolytes replenished and treatment for starvation ketoacidosis, hypernatremia and acute kidney injury.? Pt now medically cleared and transferred to psychiatric unit. ?Patient was recently discharged from the unit around 05/13/2021. HOspital course: Patient currently suffers from severe paranoid persecutory delusions that frequently direct him to harm himself in order to save his family from future torture.? Patient has no insight.? Currently refuses medications and remains on Section 12 B. he says he does not necessarily want to leave the hospital, nor does he want to stay but does not want to sign a CV worried that it will be unacceptable to his persecutors. -patient remains in severe mental anguish over what is the right thing to do, very worried about making the wrong decision which will aggravate his persecutors and therefor put his family in future jeopardy; patient eventually decided to sign a CV but then later signed a 3 day notice.? He agreed to take Clozaril but then was again ambivalent.? Patient remains willing to self-harm to the point of suicide based on paranoid delusions that he must do so in order to save his family from future torment. -over the weekend patient was screaming, out of control and required medication restraint 07/11 patient remains with joel paranoid, persecutory delusions, thoughts to starve himself to based on paranoid delusion, no insight and impaired judgment. -currently he is eating and drinking but only minimally 07/12 pt decided to take Clozaril 07/13:? Patient is tormented seems to have reached a boiling point and he agreed to take Clozaril and sign in 07/15- says he will try a new approach to his decision making; agrees to cont inue taking Clozaril.? Remains guarded, and with paranoid delusions 07/21 floridly psychotic with intense paranoid, persecutory delusions that are overwhelming patient into repeated unsafe thinking or behavior including suicide, and starvation and water deprivation.? Patient has no insight and does not believe that medications help at all; he goes back and forth about whether to take medications as he's very anxious about contradicting his persecutors whom he believes give him messages directing his behavior. 07/23 pt again decided to stop taking medications, a frequent decision emerging every few days as patient again feels that it's safer to listen to his persecutors (paranoid delusions) then it is to go against their edict and take medications. Over the past 2 weeks, only after lengthy discussions, would patient change his mind and go back to taking medications; however this reversion is not due to any moment of insight but rather a combination of emotional exhaustion and him trying to find a loophole in his persecutors edict to not take medications. -patient put in 3 day notice 07/24-07/28: sometimes withdrawn; sometimes agitated, yelling in anguished distress about being threatened by tormentors; intermittently taking medications 07/29 - rescinded 3 day notice -since then, he's agreed to take medications, though this is intermittent; taking medications however does not represent improved insight or judgment, but as patient explains, is only done because he has for the moment not concluded that They, his torementors, have specifically barred him from doing so. This makes medication management difficult since he is on Clozaril which has a narrow window for which one can safely start/stop this med. om -He continues to intermittently stop Eating and drinking in obedience to paranoid delusion with idea that he should either commit suicide or undergo some other torture; remains without insight; remains anguished. He volunteers that he has received direction on how to kill himself post discharge and he intermittently has plans to kill himself on the unit, though he has thus far been able to limit his actions towards this end. Patient believes he receives messages through various avenues, having thoughts implanted in his head or commu nications given through media or circumstance. Patient reports he wants to trust this journalists and other writers and staff but is never sure whether or not journalists and other writers/staff is part of a conspiracy to torture him. on 08/08: Patient exhibited bizarre, generating movements of primarily his upper torso; journalists and other writers examined patient and this was not dystonia, akathisia and was not seizure activity but rather patient's own voluntary behavior done in obedience to direction from his imagined persecutor; pt later confirmed this. NMS ruled out -labs (afebrile, autonomic stable; LDH wnl; CPK elevated as expected). Clozapine induced myoclonus considered but again given patient's presentation and his own self reporting that these movements are guided by delusional thought, very unlikely. Patient told journalists and other writers that since medications are being given to treat a mental illness, which he does not believe he has, he will no longer take medications -08/10required IM medication, chemical restraint for wild in unsafe behavior, hit ting his head against the wall unable to be redirected 08/11 more calm; body movements not present; can advance to q5 and off 1:1 for now (discussed with staff who agree). 08/18 -pt restarted on Clozapine (on 08/17) -calm on unit, but not willing to enage in talk therapy; mostly pacing halls during day -Bizarre body movements remain resolved? -patient's movements voluntary and done in obedience to delusion 08/23: Patient remains difficult to engage in is only superficially interactive with journalists and other writers which has been the case since a few days before court. Will continue to titrate Clozaril. pt denies med side-effects -pt agreed to Covid vaccination; he was not interested in hearing about risks/s yasmeen-effects though journalists and other writers discussed anyway; he asked if he could get Flu vaccination and nursing will review to make sure he did not already get. ?Pt got Moderna X1 on 08/24/2108/26: no changes in med regimen, continue clozapine 08/27: Pt will continue on clozapine trial, which is being adjusted as tolerated for efficacy 08/28: Pt is redirectable, accepting treatment, will continue on clozapine trial for psychosis, SI -no change; politely refuses to engage; denies complaints and has no requests; mostly keeps to himself and often paces the hallways. 09/01 remains guarded; polite to journalists and other writers but unwilling to engage. pt has been watching TV and has at times looks like he's interacting with TV, smiling and nodding his head; will not discuss this with journalists and other writers. Barrier to discharge:? Patient is floridly psychotic; he has no insight and currently suffers from paranoid, persecutory delusions, believing he needs to either kill himself or engage in behaviors that will result in , in order to fulfill his persecutors demands; if discharged before stable, patient will quickly decompensate and be at high risk for suicide; he requires locked unit, and likely a termite inspector admission, to resolve symptoms with medication management.?[facility] application submitted:? Work[employer] Act Career Manager reviewed case with Dr. Mcleod and other team members and it was discussed whether or not Dilshad needs a longer term hospitalization such as [facility]. Patient recently revealed that over the days/weeks prior to this admission, in addition to trying to starve/dehydrate himself to , he tried to kill himself 2x by Tylenol overdose, making journalists and other writers more aware of the extent of his unsafe behavior. Patient remains without any insight at all. He is fully overwhelmed by persecutory delusions. At this point it is becoming increasing difficult for journalists and other writers to imagine a scenario where Dilshad is safe outside of a longer term commitment where he is court ordered to take medications. For while he has indeed benefited from Clozapine (improved mood, relief from emotional anguish and reprieve from being contacted by persecutors [delusions]) his illness keeps him from attributing that benefit to medication; rather he maintains that medications are placebos and his relief is due to some other cause; and thus, on his own, patient's illness renders him unable to remain adherent with medications. However, if Dilshad had an extended hospital stay and remained on medications for an extended period of months, he may experience his relief from torture? as a product of medications and thus achieve enough insight to remain on medications as an outpatient. Team discussed and fully agrees that patient requires [facility] admission for his safety. PLAN: q5min checks (currently no unsafe behaviors) Court ordered involuntary commitment; court ordered substituted judgment/Euceda for medication CLOZARIL to 100MG Q.H.S (on 08/31)., will continue to titrate; will consider faster titration however want to make sure patient does not get hypotensive (In the past he got toxicity during titration however this was in conjunction with taking SSRI) cannot refuse PO Clozaril; give IM Ziprasidone if refuses received Moderna X1 on 08/24/21 Ziprasidone 20mg IM if refuses Clozaril -Team agrees that patient requires intermediate admission and submitted application to [facility] -changed scheduled clonazepam 0.25 mg b.i.d. PRN for anxiety Micromedex: 1)?Rapid titration in hospitalized patients: Day 1, 50 mg orally followed by 50 to 100 mg as needed every 6 hours (up to an additional 150 mg). Thereafter, may increase daily dosage in increments of 50 to 100 mg. Mean dosage on day 1 was 207 mg/day in patients with prior clozapine exposure and 59.7 mg without prior exposure. Mean titration over 5.44 days to a dosage of 260 mg/day, lead to a mean dosage at discharge of 322 mg/day ?Sarika HEBERT, Peggy? A, Wagner? NG, et al: Rapid clozapine titration in patients with treatment refractory schizophrenia. Psychiatr Q 2016; 87(2):315-322. I spent minutes with the patient and/or on the patient floor today, greater than?50% of which was spent counseling/coordinating care. Reason for contiued inpatient stay Substantial Risk for: harm to self
[2021-09-01 18:00] VITALS: BP 141/92; PULSE 105; TEMP 36.8
[2021-09-01] MEDS: cloZAPine 100 MG TABLET PO (21:07)
[2021-09-02 08:42] VITALS: BP 127/87; PULSE 111; RESP 16; TEMP 36.8; O2SAT 97
--- NOTE | 2021-09-02 19:54 | HO.PSYCHPN ---
Subjective Subjective Date of Service: 09/02/21 Reason For Visit: Suicidal Subjective Notes: Section 8 Interim History: guarded; superficially cooperative; difficult to engage in conversation. Reports he is fine. Avoids discussion of symptoms Medication Compliance: Yes Side effects from medications: No Review of Systems Acute medical concerns: No Medical Review of Systems: unchanged Review of Systems Review of Systems Yes all other systems are reviewed and are negative Constitutional: Denies frequent falls Reports behavioral changes, Reports confusion, Denies frequent falls and Reports memory loss Psychiatric: Reports anxiety, Reports behavioral changes, Reports confusion, Reports difficulty concentrating, Reports auditory hallucinations, Reports irritability, Reports anhedonia, Reports memory loss, Reports paranoia and Reports visual hallucinations Mental Status Exam Mental Status Exam Narrative: No change to metnal staus: pt is alert and oriented to self, time, and situation (though does not think he has mental illness); appearance is appropriate; behavior is guarded and reticent, though calm, mostly keeping to himself and pacing hallways; adequate eye contact; mood is alright and affect is constricted; thought process is goal oriented; thought content is on [facility]; otherwise guarded but alluding to continued perseveration on paranoid, persecutory delusions about being tortured; denies SI though typically intermittent SI as fulfillment of task assigned to him by persecutors; patient believes he receives messages through various avenues, having thoughts implanted in his head or communications given through media which he typically avoids. Denies AvH. ?Patients insight and judgment are impaired Patient Appearance: Disheveled Patient Orientation: Person, Place, Time and Situation Level of Consciousness: Alert Patient Behavior: Guarded, Suspicious, Good Eye Contact and Poor Eye Contact Mood Description: Blunted Affect Description: Blunted Patient Cognition Impaired: No Ability to Follow Directions: Fair Speech Pattern: Spontaneous Speech Memory Description: Remote Impaired and Episodic Impaired Judgement: Poor Diagnostics Vital Signs (24Hr): Vital Signs - 24 hr 09/02/21 08:42 Temperature 98.2 F Pulse Rate 111 H Respiratory Rate 16 Blood Pressure 127/87 Pulse Oximetry 97 Labs Results: 08/29/21 08:12 08/09/21 18:43 Medications Medications Current Medications Acetaminophen (Acetaminophen 325 Mg Tablet) 650 mg PO Q6H PRN PRN Reason: Pain, Mild (Pain Scale 1-3) Al Hydroxide/Mg Hydroxide (Magnesium Hydrox/Alum Hydrox 30 Ml Oral.Susp) 30 ml PO Q6H PRN PRN Reason: Heartburn/Nausea Calcium Carbonate (Calcium Carbonate 750 Mg Tab.Chew) 750 mg PO Q4H PRN PRN Reason: Indigestion Last Admin: 08/06/21 19:35 Dose: 750 mg Documented by: Clozapine (Clozapine 100 Mg Tablet) 100 mg PO BEDTIME FIDEL Stop: 09/02/21 23:59 Last Admin: 09/01/21 21:07 Dose: 100 mg Documented by: Clozapine 100 mg/ Clozapine 25 (mg) 125 mg PO BEDTIME FIDEL Stop: 09/04/21 23:59 Clozapine 100 mg/ Clozapine 50 (mg) 150 mg PO BEDTIME FIDEL Diphenhydramine HCl (Diphenhydramine Hcl 25 Mg Tablet) 50 mg PO Q4H PRN PRN Reason: agitation Last Admin: 07/26/21 09:00 Dose: 50 mg Documented by: Hydroxyzine HCl (Hydroxyzine Hcl 25 Mg Tablet) 25 mg PO BEDTIME PRN PRN Reason: Anxiety Last Admin: 08/04/21 21:07 Dose: 25 mg Documented by: Magnesium Hydroxide (Milk Of Magnesia 30 Ml Oral.Susp) 30 ml PO DAILY PRN PRN Reason: Constipation Nicotine Polacrilex (Nicotine Polacrilex 2 Mg Gum) 2 mg BUCCAL Q2H PRN PRN Reason: Nicotine Cravings Trazodone HCl (Trazodone Hcl 50 Mg Tablet) 50 mg PO BEDTIME PRN PRN Reason: Insomnia Ziprasidone (Ziprasidone 20 Mg Capsule) 20 mg PO TID PRN PRN Reason: agitation Ziprasidone (Ziprasidone Mesylate 20 Mg Vial) 20 mg IM DAILY PRN PRN Reason: on Euceda; if refuses PO Last Admin: 08/20/21 21:03 Dose: 20 mg Documented by: Allergies Allergies Allergy/AdvReac Type Severity Reaction Status Date / Time olanzapine [OLANZAPINE] Allergy Severe FACIAL Verified 04/06/21 10:20 SWELLING Assessment & Plan Assessment & Plan (1) Schizoaffective disorder: Status: Chronic Code(s): F25.9 - Schizoaffective disorder, unspecified Assessment and Plan: started meds few days ago - tolerating so far- maybe calmer due to it still pretty shut down (2) Starvation ketoacidosis: Status: Resolved Code(s): E87.2 - Acidosis Assessment and Plan: denies current plan for this (3) PTSD (post-traumatic stress disorder): Status: Suspected Code(s): F43.10 - Post-traumatic stress disorder, unspecified Assessment and Plan: Impression: Patient is a 35-year-old male with history of schizophrenia, paranoid type who presents for paranoid, persecutory delusions, in the face of going off medications, prompting pt to attempt suicide by starvation and water deprivation. While trying to starve himself to , and just days before this admission, patient also attempted to kill himself by overdosing on Tylenol; when this did not work he tried again at a higher dose. Pt now presents to from medical floor where he required fluid resuscitation,?electrolytes replenished and treatment for starvation ketoacidosis, hypernatremia and acute kidney injury.? Pt now medically cleared and transferred to psychiatric unit. ?Patient was recently discharged from the unit around 05/13/2021. HOspital course: Patient currently suffers from severe paranoid persecutory delusions that frequently direct him to harm himself in order to save his family from future torture.? Patient has no insight.? Currently refuses medications and remains on Section 12 B. he says he does not necessarily want to leave the hospital, nor does he want to stay but does not want to sign a CV worried that it will be unacceptable to his persecutors. -patient remains in severe mental anguish over what is the right thing to do, very worried about making the wrong decision which will aggravate his persecutors and therefor put his family in future jeopardy; patient eventually decided to sign a CV but then later signed a 3 day notice.? He agreed to take Clozaril but then was again ambivalent.? Patient remains willing to self-harm to the point of suicide based on paranoid delusions that he must do so in order to save his family from future torment. -over the weekend patient was screaming, out of control and required medication restraint 07/11 patient remains with joel paranoid, persecutory delusions, thoughts to starve himself to based on paranoid delusion, no insight and impaired judgment. -currently he is eating and drinking but only minimally 07/12 pt decided to take Clozaril 07/13:? Patient is tormented seems to have reached a boiling point and he agreed to take Clozaril and sign in 07/15- says he will try a new approach to his decision making; agrees to continue taking Clozaril.? Remains guarded, and with paranoid delusions 07/21 floridly psychotic with intense paranoid, persecutory delusions that are overwhelming patient into repeated unsafe thinking or behavior including suicide, and starvation and water deprivation.? Patient has no insight and does not believe that medications help at all; he goes back and forth about whether to take medications as he's very anxious about contradicting his persecutors whom he believes give him messages directing his behavior. 07/23 pt again decided to stop taking medications, a frequent decision emerging every few days as patient again feels that it's safer to listen to his persecutors (paranoid delusions) then it is to go against their edict and take medications. Over the past 2 weeks, only after lengthy discussions, would patient change his mind and go back to taking medications; however this reversion is not due to any moment of insight but rather a combination of emotional exhaustion and him trying to find a loophole in his persecutors edict to not take medications. -patient put in 3 day notice 07/24-07/28: sometimes withdrawn; sometimes agitated, yelling in anguished distress about being threatened by tormentors; intermittently taking medications 07/29 - rescinded 3 day notice -since then, he's agreed to take medications, though this is intermittent; taking medications however does not represent improved insight or judgment, but as patient explains, is only done because he has for the moment not concluded that They, his torementors, have specifically barred him from doing so. This makes medication management difficult since he is on Clozaril which has a narrow window for which one can safely start/stop this med. om -He continues to intermittently stop Eating and drinking in obedience to paranoid delusion with idea that he should either commit suicide or undergo some other torture; remains without insight; remains anguished. He volunteers that he has received direction on how to kill himself post discharge and he intermittently has plans to kill himself on the unit, though he has thus far been able to limit his actions towards this end. Patient believes he receives messages through various avenues, having thoughts implanted in his head or communications given through media or circumstance. Patient reports he wants to trust this typewriter assembler and staff but is never sure whether or not typewriter assembler/staff is part of a conspiracy to torture him. on 08/08: Patient exhibited bizarre, generating movements of primarily his upper torso; typewriter assembler examined patient and this was not dystonia, akathisia and was not seizure activity but rather patient's own voluntary behavior done in obedience to direction from his imagined persecutor; pt later confirmed this. NMS ruled out -labs (afebrile, autonomic stable; LDH wnl; CPK elevated as expected). Clozapine induced myoclonus considered but again given patient's presentation and his own self reporting that these movements are guided by delusional thought, very unlikely. Patient told typewriter assembler that since medications are being given to treat a mental illness, which he does not believe he has, he will no longer take medications -08/10required IM medication, chemical restraint for wild in unsafe behavior, hitting his head against the wall unable to be redirected 08/11 more calm; body movements not present; can advance to q5 and off 1:1 for now (discussed with staff who agree). 08/18 -pt restarted on Clozapine (on 08/17) -calm on unit, but not willing to enage in talk therapy; mostly pacing halls during day -Bizarre body movements remain resolved? -patient's movements voluntary and done in obedience to delusion 08/23: Patient remains difficult to engage in is only superficially interactive with typewriter assembler which has been the case since a few days before court. Will continue to titrate Clozaril. pt denies med side-effects -pt agreed to Covid vaccination; he was not interested in hearing about risks/side-effects though typewriter assembler discussed anyway; he asked if he could get Flu vaccination and nursing will review to make sure he did not already get. ?Pt got Moderna X1 on 08/24/2108/26: no changes in med regimen, continue clozapine 08/27: Pt will continue on clozapine trial, which is being adjusted as tolerated for efficacy 08/28: Pt is redirectable, accepting treatment, will continue on clozapine trial for psychosis, SI -no change; politely refuses to engage; denies complaints and has no requests; mostly keeps to himself and often paces the hallways. 09/01 remains guarded; polite to typewriter assembler but unwilling to engage. pt has been watching TV and has at times looks like he's interacting with TV, smiling and nodding his head; will not discuss this with typewriter assembler. 09/02/21 continue with current treatment Barrier to discharge:? Patient is floridly psychotic; he has no insight and currently suffers from paranoid, persecutory delusions, believing he needs to either kill himself or engage in behaviors that will result in , in order to fulfill his persecutors demands; if discharged before stable, patient will quickly decompensate and be at high risk for suicide; he requires locked unit, and likely a ad terminal makeup operator admission, to resolve symptoms with medication management.?[facility] application submitted:? Supervisor Post [employer] reviewed case with Dr. Mcleod and other team members and it was discussed whether or not Dilshad needs a longer term hospitalization such as [facility]. Patient recently revealed that over the days/weeks prior to this admission, in addition to trying to starve/dehydrate himself to , he tried to kill himself 2x by Tylenol overdose, making typewriter assembler more aware of the extent of his unsafe behavior. Patient remains without any insight at all. He is fully overwhelmed by persecutory delusions. At this point it is becoming increasing difficult for typewriter assembler to imagine a scenario where Dilshad is safe outside of a longer term commitment where he is court ordered to take medications. For while he has indeed benefited from Clozapine (improved mood, relief from emotional anguish and reprieve from being contacted by persecutors [delusions]) his illness keeps him from attributing that benefit to medication; rather he maintains that medications are placebos and his relief is due to some other cause; and thus, on his own, patient's illness renders him unable to remain adherent with medications. However, if Dilshad had an extended hospital stay and remained on medications for an extended period of months, he may experience his relief from torture? as a product of medications and thus achieve enough insight to remain on medications as an outpatient. Team discussed and fully agrees that patient requires [facility] admission for his safety. PLAN: q5min checks (currently no unsafe behaviors) Court ordered involuntary commitment; court ordered substituted judgment/Euceda for medication CLOZARIL to 100MG Q.H.S (on 08/31)., will continue to titrate; will consider faster titration however want to make sure patient does not get hypotensive (In the past he got toxicity during titration however this was in conjunction with taking SSRI) cannot refuse PO Clozaril; give IM Ziprasidone if refuses received Moderna X1 on 08/24/21 Ziprasidone 20mg IM if refuses Clozaril -Team agrees that patient requires ad terminal makeup operator admission and submitted application to [facility] -changed scheduled clonazepam 0.25 mg b.i.d. PRN for anxiety Micromedex: 1)?Rapid titration in hospitalized patients: Day 1, 50 mg orally followed by 50 to 100 mg as needed every 6 hours (up to an additional 150 mg). Thereafter, may increase daily dosage in increments of 50 to 100 mg. Mean dosage on day 1 was 207 mg/day in patients with prior clozapine exposure and 59.7 mg without prior exposure. Mean titration over 5.44 days to a dosage of 260 mg/day, lead to a mean dosage at discharge of 322 mg/day ?Sarika HEBERT, Peggy? A, Wagner? NG, et al: Rapid clozapine titration in patients with treatment refractory schizophrenia. Psychiatr Q 2016; 87(2):315-322. I spent minutes with the patient and/or on the patient floor today, greater than?50% of which was spent counseling/coordinating care. Reason for contiued inpatient stay Substantial Risk for: harm to self, inability to function, rapid decompensation and med/psych decompensation
[2021-09-02 20:36] VITALS: BP 103/65; PULSE 80; RESP 16; TEMP 36.7; O2SAT 95
[2021-09-02] MEDS: cloZAPine 100 MG TABLET PO (20:44)
[2021-09-03 06:23] VITALS: BP 112/72; PULSE 93; RESP 16; TEMP 36.8; O2SAT 97
[2021-09-03 16:39] VITALS: BP 139/94; PULSE 128; RESP 16; TEMP 36.6; O2SAT 96
--- NOTE | 2021-09-03 18:48 | HO.PSYCHPN ---
Subjective Subjective Date of Service: 09/03/21 Reason For Visit: Suicidal Interim History: pacing in hallway. Out of bed more often, guarded; superficially cooperative; difficult to engage in conversation. states he iis fine. But will not say more. Difficult to engage in discussion of symptoms Medication Compliance: Yes Side effects from medications: No Attending Groups: No Review of Systems Acute medical concerns: No Medical Review of Systems: unchanged Review of Systems Review of Systems Yes all other systems are reviewed and are negative Constitutional: Denies frequent falls Reports behavioral changes, Reports confusion, Denies frequent falls and Reports memory loss Psychiatric: Reports anxiety, Reports behavioral changes, Reports confusion, Reports difficulty concentrating, Reports auditory hallucinations, Reports irritability, Reports anhedonia, Reports memory loss, Reports paranoia and Reports visual hallucinations Mental Status Exam Mental Status Exam Narrative: Patient Appearance: Disheveled Patient Orientation: Person, Place, Time and Situation Level of Consciousness: Alert Patient Behavior: Guarded, Suspicious, Good Eye Contact and Poor Eye Contact Mood Description: Blunted Affect Description: Blunted Patient Cognition Impaired: No Ability to Follow Directions: Fair Speech Pattern: Spontaneous Speech Memory Description: Remote Impaired and Episodic Impaired Judgement: Poor Diagnostics Vital Signs (24Hr): Vital Signs - 24 hr 09/02/21 20:36 09/03/21 06:23 09/03/21 16:39 Temperature 98.0 F 98.2 F 97.8 F Pulse Rate 80 93 128 H Respiratory Rate 16 16 16 Blood Pressure 103/65 112/72 139/94 H Pulse Oximetry 95 97 96 Labs Results: 08/29/21 08:12 08/09/21 18:43 Medications Medications Current Medications Acetaminophen (Acetaminophen 325 Mg Tablet) 650 mg PO Q6H PRN PRN Reason: Pain, Mild (Pain Scale 1-3) Al Hydroxide/Mg Hydroxide (Magnesium Hydrox/Alum Hydrox 30 Ml Oral.Susp) 30 ml PO Q6H PRN PRN Reason: Heartburn/Nausea Calcium Carbonate (Calcium Carbonate 750 Mg Tab.Chew) 750 mg PO Q4H PRN PRN Reason: Indigestion Last Admin: 08/06/21 19:35 Dose: 750 mg Documented by: Clozapine 100 mg/ Clozapine 25 (mg) 125 mg PO BEDTIME FIDEL Stop: 09/04/21 23:59 Clozapine 100 mg/ Clozapine 50 (mg) 150 mg PO BEDTIME FIDEL Diphenhydramine HCl (Diphenhydramine Hcl 25 Mg Tablet) 50 mg PO Q4H PRN PRN Reason: agitation Last Admin: 07/26/21 09:00 Dose: 50 mg Documented by: Hydroxyzine HCl (Hydroxyzine Hcl 25 Mg Tablet) 25 mg PO BEDTIME PRN PRN Reason: Anxiety Last Admin: 08/04/21 21:07 Dose: 25 mg Documented by: Magnesium Hydroxide (Milk Of Magnesia 30 Ml Oral.Susp) 30 ml PO DAILY PRN PRN Reason: Constipation Nicotine Polacrilex (Nicotine Polacrilex 2 Mg Gum) 2 mg BUCCAL Q2H PRN PRN Reason: Nicotine Cravings Trazodone HCl (Trazodone Hcl 50 Mg Tablet) 50 mg PO BEDTIME PRN PRN Reason: Insomnia Ziprasidone (Ziprasidone 20 Mg Capsule) 20 mg PO TID PRN PRN Reason: agitation Ziprasidone (Ziprasidone Mesylate 20 Mg Vial) 20 mg IM DAILY PRN PRN Reason: on Euceda; if refuses PO Last Admin: 08/20/21 21:03 Dose: 20 mg Documented by: Allergies Allergies Allergy/AdvReac Type Severity Reaction Status Date / Time olanzapine [OLANZAPINE] Allergy Severe FACIAL Verified 04/06/21 10:20 SWELLING Assessment & Plan Assessment & Plan (1) Schizoaffective disorder: Status: Chronic Code(s): F25.9 - Schizoaffective disorder, unspecified Assessment and Plan: started meds few days ago - tolerating so far- maybe calmer due to it still pretty shut down (2) Starvation ketoacidosis: Status: Resolved Code(s): E87.2 - Acidosis Assessment and Plan: denies current plan for this (3) PTSD (post-traumatic stress disorder): Status: Suspected Code(s): F43.10 - Post-traumatic stress disorder, unspecified Assessment and Plan: Impression: Patient is a 35-year-old male with history of schizophrenia, paranoid type who presents for paranoid, persecutory delusions, in the face of going off medications, prompting pt to attempt suicide by starvation and water deprivation. While trying to starve himself to , and just days before this admission, patient also attempted to kill himself by overdosing on Tylenol; when this did not work he tried again at a higher dose. Pt now presents to [facility] from medical floor where he required fluid resuscitation,?electrolytes replenished and treatment for starvation ketoacidosis, hypernatremia and acute kidney injury.? Pt now medically cleared and transferred to psychiatric unit. ?Patient was recently discharged from the unit around 05/13/2021. HOspital course: Patient currently suffers from severe paranoid persecutory delusions that frequently direct him to harm himself in order to save his family from future torture.? Patient has no insight.? Currently refuses medications and remains on Section 12 B. he says he does not necessarily want to leave the hospital, nor does he want to stay but does not want to sign a CV worried that it will be unacceptable to his persecutors. -patient remains in severe mental anguish over what is the right thing to do, very worried about making the wrong decision which will aggravate his persecutors and therefor put his family in future jeopardy; patient eventually decided to sign a CV but then later signed a 3 day notice.? He agreed to take Clozaril but then was again ambivalent.? Patient remains willing to self-harm to the point of suicide based on paranoid delusions that he must do so in order to save his family from future torment. -over the weekend patient was screaming, out of control and required medication restraint 07/11 patient remains with joel paranoid, persecutory delusions, thoughts to starve himself to based on paranoid delusion, no insight and impaired judgment. -currently he is eating and drinking but only minimally 07/12 pt decided to take Clozaril 07/13:? Patient is tormented seems to have reached a boiling point and he agreed to take Clozaril and sign in 07/15- says he will try a new approach to his decision making; agrees to continue taking Clozaril.? Remains guarded, and with paranoid delusions 07/21 floridly psychotic with intense paranoid, persecutory delusions that are overwhelming patient into repeated unsafe thinking or behavior including suicide, and starvation and water deprivation.? Patient has no insight and does not believe that medications help at all; he goes back and forth about whether to take medications as he's very anxious about contradicting his persecutors whom he believes give him messages directing his behavior. 07/23 pt again decided to stop taking medications, a frequent decision emerging every few days as patient again feels that it's safer to listen to his persecutors (paranoid delusions) then it is to go against their edict and take medications. Over the past 2 weeks, only after lengthy discussions, would patient change his mind and go back to taking medications; however this reversion is not due to any moment of insight but rather a combination of emotional exhaustion and him trying to find a loophole in his persecutors edict to not take medications. -patient put in 3 day notice 07/24-07/28: sometimes withdrawn; sometimes agitated, yelling in anguished distress about being threatened by tormentors; intermittently taking medications 07/29 - rescinded 3 day notice -since then, he's agreed to take medications, though this is intermittent; taking medications however does not represent improved insight or judgment, but as patient explains, is only done because he has for the moment not concluded that They, his torementors, have specifically barred him from doing so. This makes medication management difficult since he is on Clozaril which has a narrow window for which one can safely start/stop this med. om -He continues to intermittently stop Eating and drinking in obedience to paranoid delusion with idea that he should either commit suicide or undergo some other torture; remains without insight; remains anguished. He volunteers that he has received direction on how to kill himself post discharge and he intermittently has plans to kill himself on the unit, though he has thus far been able to limit his actions towards this end. Patient believes he receives messages through various avenues, having thoughts implanted in his head or communications given through media or circumstance. Patient reports he wants to trust this telegraphic typewriter operator chief and staff but is never sure whether or not telegraphic typewriter operator chief/staff is part of a conspiracy to torture him. on 08/08: Patient exhibited bizarre, generating movements of primarily his upper torso; telegraphic typewriter operator chief examined patient and this was not dystonia, akathisia and was not seizure activity but rather patient's own voluntary behavior done in obedience to direction from his imagined persecutor; pt later confirmed this. NMS ruled out -labs (afebrile, autonomic stable; LDH wnl; CPK elevated as expected). Clozapine induced myoclonus considered but again given patient's presentation and his own self reporting that these movements are guided by delusional thought, very unlikely. Patient told telegraphic typewriter operator chief that since medications are being given to treat a mental illness, which he does not believe he has, he will no longer take medications -08/10required IM medication, chemical restraint for wild in unsafe behavior, hitting his head against the wall unable to be redirected 08/11 more calm; body movements not present; can advance to q5 and off 1:1 for now (discussed with staff who agree). 08/18 -pt restarted on Clozapine (on 08/17) -calm on unit, but not willing to enage in talk therapy; mostly pacing halls during day -Bizarre body movements remain resolved? -patient's movements voluntary and done in obedience to delusion 08/23: Patient remains difficult to engage in is only superficially interactive with telegraphic typewriter operator chief which has been the case since a few days before court. Will continue to titrate Clozaril. pt denies med side-effects -pt agreed to Covid vaccination; he was not interested in hearing about risks/side-effects though telegraphic typewriter operator chief discussed anyway; he asked if he could get Flu vaccination and nursing will review to make sure he did not already get. ?Pt got Moderna X1 on 08/24/2108/26: no changes in med regimen, continue clozapine 08/27: Pt will continue on clozapine trial, which is being adjusted as tolerated for efficacy 08/28: Pt is redirectable, accepting treatment, will continue on clozapine trial for psychosis, SI -no change; politely refuses to engage; denies complaints and has no requests; mostly keeps to himself and often paces the hallways. 09/01 remains guarded; polite to telegraphic typewriter operator chief but unwilling to engage. pt has been watching TV and has at times looks like he's interacting with TV, smiling and nodding his head; will not discuss this with telegraphic typewriter operator chief. 09/02/21 continue with current treatment 09/03/21 continue with current treatment plan Barrier to discharge:? Patient is floridly psychotic; he has no insight and currently suffers from paranoid, persecutory delusions, believing he needs to either kill himself or engage in behaviors that will result in , in order to fulfill his persecutors demands; if discharged before stable, patient will quickly decompensate and be at high risk for suicide; he requires locked unit, and likely a assisted admission, to resolve symptoms with medication management.?[facility] application submitted:? [employer] reviewed case with Dr. Mcleod and other team members and it was discussed whether or not Dilshad needs a longer term hospitalization such as [facility]. Patient recently revealed that over the days/weeks prior to this admission, in addition to trying to starve/dehydrate himself to , he tried to kill himself 2x by Tylenol overdose, making telegraphic typewriter operator chief more aware of the extent of his unsafe behavior. Patient remains without any insight at all. He is fully overwhelmed by persecutory delusions. At this point it is becoming increasing difficult for telegraphic typewriter operator chief to imagine a scenario where Dilshad is safe outside of a longer term commitment where he is court ordered to take medications. For while he has indeed benefited from Clozapine (improved mood, relief from emotional anguish and reprieve from being contacted by persecutors [delusions]) his illness keeps him from attributing that benefit to medication; rather he maintains that medications are placebos and his relief is due to some other cause; and thus, on his own, patient's illness renders him unable to remain adherent with medications. However, if Dilshad had an extended hospital stay and remained on medications for an extended period of months, he may experience his relief from torture? as a product of medications and thus achieve enough insight to remain on medications as an outpatient. Team discussed and fully agrees that patient requires [facility] admission for his safety. PLAN: q5min checks (currently no unsafe behaviors) Court ordered involuntary commitment; court ordered substituted judgment/Euceda for medication CLOZARIL to 100MG Q.H.S (on 08/31)., will continue to titrate; will consider faster titration however want to make sure patient does not get hypotensive (In the past he got toxicity during titration however this was in conjunction with taking SSRI) cannot refuse PO Clozaril; give IM Ziprasidone if refuses received Moderna X1 on 08/24/21 Ziprasidone 20mg IM if refuses Clozaril -Team agrees that patient requires termite inspector admission and submitted application to [facility] -changed scheduled clonazepam 0.25 mg b.i.d. PRN for anxiety Micromedex: 1)?Rapid titration in hospitalized patients: Day 1, 50 mg orally followed by 50 to 100 mg as needed every 6 hours (up to an additional 150 mg). Thereafter, may increase daily dosage in increments of 50 to 100 mg. Mean dosage on day 1 was 207 mg/day in patients with prior clozapine exposure and 59.7 mg without prior exposure. Mean titration over 5.44 days to a dosage of 260 mg/day, lead to a mean dosage at discharge of 322 mg/day ?Sarika HEBERT, Peggy? A, Wagner? NG, et al: Rapid clozapine titration in patients with treatment refractory schizophrenia. Psychiatr Q 2016; 87(2):315-322. I spent minutes with the patient and/or on the patient floor today, greater than?50% of which was spent counseling/coordinating care. Reason for contiued inpatient stay Substantial Risk for: harm to self, inability to function and med/psych decompensation
[2021-09-03] MEDS: cloZAPine 100 MG, cloZAPine 25 MG 125 MG PO (21:23)
[2021-09-04 06:29] VITALS: BP 110/64; PULSE 85; RESP 16; TEMP 36.6; O2SAT 97
--- NOTE | 2021-09-04 10:55 | P.PNPSI_ITS ---
Subjective Subjective Date of Service: 09/04/21 Reason For Visit: Suicidal Interim History: pacing in hallway. Out of bed more often, guarded; superficially cooperative; difficult to engage in conversation. states he iis fine. But will not say more. Difficult to engage in discussion of symptoms Medication Compliance: Yes Side effects from medications: No Attending Groups: No Review of Systems Acute medical concerns: No Medical Review of Systems: unchanged Review of Systems Review of Systems Yes all other systems are reviewed and are negative Constitutional: Denies frequent falls Reports behavioral changes, Reports confusion, Denies frequent falls and Reports memory loss Psychiatric: Reports anxiety, Reports behavioral changes, Reports confusion, Reports difficulty concentrating, Reports auditory hallucinations, Reports i rritability, Reports anhedonia, Reports memory loss, Reports paranoia and Reports visual hallucinations Mental Status Exam Mental Status Exam Narrative: Patient Appearance: Disheveled Patient Orientation: Person, Place, Time and Situation Level of Consciousness: Alert Patient Behavior: Guarded, Suspicious, Good Eye Contact and Poor Eye Contact Mood Description: Blunted Affect Description: Blunted Patient Cognition Impaired: No Ability to Follow Directions: Fair Speech Pattern: Spontaneous Speech Memory Description: Remote Impaired and Episodic Impaired Thought Content: positive for Preoccupation and positive for Thought Blocking Judgement: Poor Diagnostics Vital Signs (24Hr): Vital Signs - 24 hr 09/03/21 16:39 09/04/21 06:29 Temperature 97.8 F 97.8 F Pulse Rate 128 H 85 Respiratory Rate 16 16 Blood Pressure 139/94 H 110/64 Pulse Oximetry 96 97 Labs Results: 08/29/21 08:12 08/09/21 18:43 Medications Medications Current Medications Acetaminophen (Acetaminophen 325 Mg Tablet) 650 mg PO Q6H PRN PRN Reason: Pain, Mild (Pain Scale 1-3) Al Hydroxide/Mg Hydroxide (Magnesium Hydrox/Alum Hydrox 30 Ml Oral.Susp) 30 ml PO Q6H PRN PRN Reason: Heartburn/Nausea Calcium Carbonate (Calcium Carbonate 750 Mg Tab.Chew) 750 mg PO Q4H PRN PRN Reason: Indigestion Last Admin: 08/06/21 19:35 Dose: 750 mg Documented by: Clozapine 100 mg/ Clozapine 25 (mg) 125 mg PO BEDTIME FIDEL Stop: 09/04/21 23:59 Last Admin: 09/03/21 21:23 Dose: 125 mg Documented by: Clozapine 100 mg/ Clozapine 50 (mg) 150 mg PO BEDTIME FIDEL Diphenhydramine HCl (Diphenhydramine Hcl 25 Mg Tablet) 50 mg PO Q4H PRN PRN Reason: agitation Last Admin: 07/26/21 09:00 Dose: 50 mg Documented by: Hydroxyzine HCl (Hydroxyzine Hcl 25 Mg Tablet) 25 mg PO BEDTIME PRN PRN Reason: Anxiety Last Admin: 08/04/21 21:07 Dose: 25 mg Documented by: Magnesium Hydroxide (Milk Of Magnesia 30 Ml Oral.Susp) 30 ml PO DAILY PRN PRN Reason: Constipation Nicotine Polacrilex (Nicotine Polacrilex 2 Mg Gum) 2 mg BUCCAL Q2H PRN PRN Reason: Nicotine Cravings Trazodone HCl (Trazodone Hcl 50 Mg Tablet) 50 mg PO BEDTIME PRN PRN Reason: Insomnia Ziprasidone (Ziprasidone 20 Mg Capsule) 20 mg PO TID PRN PRN Reason: agitation Ziprasidone (Ziprasidone Mesylate 20 Mg Vial) 20 mg IM DAILY PRN PRN Reason: on Euceda; if refuses PO Last Admin: 08/20/21 21:03 Dose: 20 mg Documented by: Allergies Allergies Allergy/AdvReac Type Severity Reaction Status Date / Time olanzapine [OLANZAPINE] Allergy Severe FACIAL Verified 04/06/21 10:20 SWELLING Assessment & Plan Assessment & Plan (1) Schizoaffective disorder: Status: Chronic Code(s): F25.9 - Schizoaffective disorder, unspecified Assessment and Plan: started meds few days ago - tolerating so far- maybe calmer due to it still pretty shut down (2) Starvation ketoacidosis: Status: Resolved Code(s): E87.2 - Acidosis Assessment and Plan: denies current plan for this (3) PTSD (post-traumatic stress disorder): Status: Suspected Code(s): F43.10 - Post-traumatic stress disorder, unspecified Assessment and Plan: Impression: Patient is a 35-year-old male with history of schizophrenia, paranoid type who presents for paranoid, persecutory delusions, in the face of going off m edications, prompting pt to attempt suicide by starvation and water deprivation. While trying to starve himself to , and just days before this admission, patient also attempted to kill himself by overdosing on Tylenol; when this did not work he tried again at a higher dose. Pt now presents to [facility] from medical floor where he required fluid resuscitation,?electrolytes replenished and treatment for starvation ketoacidosis, hypernatremia and acute kidney injury.? Pt now medically cleared and transferred to psychiatric unit. ?Patient was recently discharged from the unit around 05/13/2021. HOspital course: Patient currently suffers from severe paranoid persecutory delusions that frequently direct him to harm himself in order to save his family from future torture.? Patient has no insight.? Currently refuses medications and remains on Section 12 B. he says he does not necessarily want to leave the hospital, nor does he want to stay but does not want to sign a CV worried that it will be unacceptable to his persecutors. -patient remains in severe mental anguish over what is the right thing to do, very worried about making the wrong decision which will aggravate his persecutors and therefor put his family in future jeopardy; patient eventually decided to sign a CV but then later signed a 3 day notice.? He agreed to take Clozaril but then was again ambivalent.? Patient remains willing to self-harm to the point of suicide based on paranoid delusions that he must do so in order to save his family from future torment. -over the weekend patient was screaming, out of control and required medication restraint 07/11 patient remains with joel paranoid, persecutory delusions, thoughts to starve himself to based on paranoid delusion, no insight and impaired judgment. -currently he is eating and drinking but only minimally 07/12 pt decided to take Clozaril 07/13:? Patient is tormented seems to have reached a boiling point and he agreed to take Clozaril and sign in 07/15- says he will try a new approach to his decision making; agrees to continue taking Clozaril.? Remains guarded, and with paranoid delusions 07/21 floridly psychotic with intense paranoid, persecutory delusions that are overwhelming patient into repeated unsafe thinking or behavior including suicide, and starvation and water deprivation.? Patient has no insight and does not believe that medications help at all; he goes back and forth about whether to take medications as he's very anxious about contradicting his persecutors whom he believes give him messages directing his behavior. 07/23 pt again decided to stop taking medications, a frequent decision emerging every few days as patient again feels that it's safer to listen to his persecutors (paranoid delusions) then it is to go against their edict and take medications. Over the past 2 weeks, only after lengthy discussions, would patient change his mind and go back to taking medications; however this reversion is not due to any moment of insight but rather a combination of emotional exhaustion and him trying to find a loophole in his persecutors edict to not take medications. -patient put in 3 day notice 07/24-07/28: sometimes withdrawn; sometimes agitated, yelling in anguished distress about being threatened by tormentors; intermittently taking medications 07/29 - rescinded 3 day notice -since then, he's agreed to take medications, though this is intermittent; taking medications however does not represent improved insight or judgment, but as patient explains, is only done because he has for the moment not concluded that They, his torementors, have specifically barred him from doing so. This makes medication management difficult since he is on Clozaril which has a narrow window for which one can safely start/stop this med. om -He continues to intermittently stop Eating and drinking in obedience to paranoid delusion with idea that he should either commit suicide or undergo some other torture; remains without insight; remains anguished. He volunteers that he has received direction on how to kill himself post discharge and he intermittently has plans to kill himself on the unit, though he has thus far been able to limit his actions towards this end. Patient believes he receives messages through various avenues, having thoughts implanted in his head or communications given through media or circumstance. Patient reports he wants to trust this pattern chart writer and staff but is never sure whether or not pattern chart writer/staff is part of a conspiracy to torture him. on 08/08: Patient exhibited bizarre, generating movements of primarily his upper torso; pattern chart writer examined patient and this was not dystonia, akathisia and was not seizure activity but rather patient's own voluntary behavior done in obedience to direction from his imagined persecutor; pt later confirmed this. NMS ruled out -labs (afebrile, autonomic stable; LDH wnl; CPK elevated as expected). Clozapine induced myoclonus considered but again given patient's presentation and his own self reporting that these movements are guided by delusional thought, very unlikely. Patient told pattern chart writer that since medications are being given to treat a mental illness, which he does not believe he has, he will no longer take medications -08/10required IM medication, chemical restraint for wild in unsafe behavior, hitting his head against the wall unable to be redirected 08/11 more calm; body movements not present; can advance to q5 and off 1:1 for now (discussed with staff who agree). 08/18 -pt restarted on Clozapine (on 08/17) -calm on unit, but not willing to enage in talk therapy; mostly pacing halls during day -Bizarre body movements remain resolved? -patient's movements voluntary and done in obedience to delusion 08/23: Patient remains difficult to engage in is only superficially interactive with pattern chart writer which has been the case since a few days before court. Will continue to titrate Clozaril. pt denies med side-effects -pt agreed to Covid vaccination; he was not interested in hearing about risks/side-effects though pattern chart writer discussed anyway; he asked if he could get Flu vaccination and nursing will review to make sure he did not already get. ?Pt got Moderna X1 on 08/24/2108/26: no changes in med regimen, continue clozapine 08/27: Pt will continue on clozapine trial, which is being adjusted as tolerated for efficacy 08/28: Pt is redirectable, accepting treatment, will continue on clozapine trial for psychosis, SI -no change; politely refuses to engage; denies complaints and has no requests; mostly keeps to himself and often paces the hallways. 09/01 remains guarded; polite to pattern chart writer but unwilling to engage. pt has been watching TV and has at times looks like he's interacting with TV, smiling and nodding his head; will not discuss this with pattern chart writer. 09/02/21 continue with current treatment 09/03/21 continue with current treatment plan 09/04/21 continue current treatment Barrier to discharge:? Patient is floridly psychotic; he has no insight and currently suffers from paranoid, persecutory delusions, believing he needs to either kill himself or engage in behaviors that will result in , in order to fulfill his persecutors demands; if discharged before stable, patient will quickly decompensate and be at high risk for suicide; he requires locked unit, and likely a assisted admission, to resolve symptoms with medication management.?[facility] application submitted:? Health Records Technology Teacher reviewed case with Dr. Mcleod and other team members and it was discussed whether or not Dilshad needs a longer term hospitalization such as [facility]. Patient recently revealed that over the days/weeks prior to this admission, in addition to trying to starve/dehydrate himself to , he tried to kill himself 2x by Tylenol overdose, making pattern chart writer more aware of the extent of his unsafe behavior. Patient remains without any insight at all. He is fully overwhelmed by persecutory delusions. At this point it is becoming increasing difficult for pattern chart writer to imagine a scenario where Dilshad is safe outside of a longer term commitment where he is court ordered to take medications. For while he has indeed benefited from Clozapine (improved mood, relief from emotional anguish and reprieve from being contacted by persecutors [delusions]) his illness keeps him from attributing that benefit to medication; rather he maintains that medications are placebos and his relief is due to some other cause; and thus, on his own, patient's illness renders him unable to remain adherent with medications. However, if Dilshad had an extended hospital stay and remained on medications for an extended period of months, he may experience his relief from torture? as a product of medications and thus achieve enough insight to remain on medications as an outpatient. Team discussed and fully agrees that [facility] for his safety. PLAN: q5min checks (currently no unsafe behaviors) Court ordered involuntary commitment; court ordered substituted judgment/Euceda for medication CLOZARIL to 100MG Q.H.S (on 08/31)., will continue to titrate; will consider faster titration however want to make sure patient does not get hypotensive (In the past he got toxicity during titration however this was in conjunction with taking SSRI) cannot refuse PO Clozaril; give IM Ziprasidone if refuses received Moderna X1 on 08/24/21 Ziprasidone 20mg IM if refuses Clozaril -Team agrees that patient requires assisted admission and submitted application to [facility] -changed scheduled clonazepam 0.25 mg b.i.d. PRN for anxiety Micromedex: 1)?Rapid titration in hospitalized patients: Day 1, 50 mg orally followed by 50 to 100 mg as needed every 6 hours (up to an additional 150 mg). Thereafter, may increase daily dosage in increments of 50 to 100 mg. Mean dosage on day 1 was 207 mg/day in patients with prior clozapine exposure and 59.7 mg without prior exposure. Mean titration over 5.44 days to a dosage of 260 mg/day, lead to a mean dosage at discharge of 322 mg/day ?Sarika HEBERT, Peggy? A, Wagner? NG, et al: Rapid clozapine titration in patients with treatment refractory schizophrenia. Psychiatr Q 2016; 87(2):315-322. I spent minutes with the patient and/or on the patient floor today, greater than?50% of which was spent counseling/coordinating care. Reason for contiued inpatient stay Substantial Risk for: harm to self, inability to function and rapid decompensation
[2021-09-04 17:01] VITALS: BP 124/94; PULSE 110; TEMP 37.1; O2SAT 94
[2021-09-04] MEDS: cloZAPine 100 MG, cloZAPine 25 MG 125 MG PO (21:03)
[2021-09-05 08:27] LABS: Neut%MD 62.7 %; Neutrophils Absolute Auto 4.9 x10*3/uL (2.0-8.3); WBCANC 7.8 X10*3/uL
[2021-09-05 10:46] VITALS: BP 124/74; PULSE 120; RESP 14; TEMP 36.9; O2SAT 95
--- NOTE | 2021-09-05 15:19 | P.PNPSI_ITS ---
Subjective Subjective Date of Service: 09/05/21 Reason For Visit: Suicidal Interim History: Patient sitting at the TV. He says he has no complaints and no requests. Patient says he does not want to talk. Crude Oil Treater made a small joke and patient has mild but does not want to engage further. Patient agrees that his heart rate is probably elevated because he is frequently walking the hallways prior to his vitals being checked. Mental Status Exam Mental Status Exam Narrative: No change to metnal staus: pt is alert and oriented to self, time, and situation (though does not think he has mental illness); appearance a little unkempt but adequate hygiene; behavior is guarded, though calm, mostly keeping to himself and pacing hallways; adequate eye contact; mood is alright and affect is constricted; thought process is goal oriented; thought content is on [facility]; otherwise guarded but alluding to continued perseveration on paranoid, persecutory delusions about being tortured; denies SI though typically intermittent SI as fulfillment of task assigned to him by persecutors; patient believes he receives messages through various avenues, having thoughts implanted in his head or communications given through media. Denies AvH. ?Patients insight and judgment are impaired Diagnostics Vital Signs (24Hr): Vital Signs - 24 hr 09/04/21 17:01 09/05/21 10:46 Temperature 98.8 F 98.4 F Pulse Rate 110 H 120 H Respiratory Rate 14 Blood Pressure 124/94 H 124/74 Pulse Oximetry 94 95 Labs Results: 08/29/21 08:12 08/09/21 18:43 Labs: Laboratory Results - last 48 hr 09/05/21 08:18 Absolute Neuts (auto) 4.9 Medications Medications Current Medications Acetaminophen (Acetaminophen 325 Mg Tablet) 650 mg PO Q6H PRN PRN Reason: Pain, Mild (Pain Scale 1-3) Al Hydroxide/Mg Hydroxide (Magnesium Hydrox/Alum Hydrox 30 Ml Oral.Susp) 30 ml PO Q6H PRN PRN Reason: Heartburn/Nausea Calcium Carbonate (Calcium Carbonate 750 Mg Tab.Chew) 750 mg PO Q4H PRN PRN Reason: Indigestion Last Admin: 08/06/21 19:35 Dose: 750 mg Documented by: Clozapine 100 mg/ Clozapine 50 (mg) 150 mg PO BEDTIME FIDEL Diphenhydramine HCl (Diphenhydramine Hcl 25 Mg Tablet) 50 mg PO Q4H PRN PRN Reason: agitation Last Admin: 07/26/21 09:00 Dose: 50 mg Documented by: Hydroxyzine HCl (Hydroxyzine Hcl 25 Mg Tablet) 25 mg PO BEDTIME PRN PRN Reason: Anxiety Last Admin: 08/04/21 21:07 Dose: 25 mg Documented by: Magnesium Hydroxide (Milk Of Magnesia 30 Ml Oral.Susp) 30 ml PO DAILY PRN PRN Reason: Constipation Nicotine Polacrilex (Nicotine Polacrilex 2 Mg Gum) 2 mg BUCCAL Q2H PRN PRN Reason: Nicotine Cravings Trazodone HCl (Trazodone Hcl 50 Mg Tablet) 50 mg PO BEDTIME PRN PRN Reason: Insomnia Ziprasidone (Ziprasidone 20 Mg Capsule) 20 mg PO TID PRN PRN Reason: agitation Ziprasidone (Ziprasidone Mesylate 20 Mg Vial) 20 mg IM DAILY PRN PRN Reason: on Euceda; if refuses PO Last Admin: 08/20/21 21:03 Dose: 20 mg Documented by: Allergies Allergies Allergy/AdvReac Type Severity Reaction Status Date / Time olanzapine [OLANZAPINE] Allergy Severe FACIAL Verified 04/06/21 10:20 SWELLING Assessment & Plan Assessment & Plan (1) Schizoaffective disorder: Status: Chronic Code(s): F25.9 - Schizoaffective disorder, unspecified Assessment and Plan: started meds few days ago - tolerating so far- maybe calmer due to it still pretty shut down (2) Starvation ketoacidosis: Status: Resolved Code(s): E87.2 - Acidosis Assessment and Plan: denies current plan for this (3) PTSD (post-traumatic stress disorder): Status: Suspected Code(s): F43.10 - Post-traumatic stress disorder, unspecified Assessment and Plan: Impression: Patient is a 35-year-old male with history of schizophrenia, paranoid type who presents for paranoid, persecutory delusions, in the face of going off medications, prompting pt to attempt suicide by starvation and water deprivation. While trying to starve himself to , and just days before this admission, patient also attempted to kill himself by overdosing on Tylenol; when this did not work he tried again at a higher dose. Pt now presents to [facility]5 from medical floor where he required fluid resuscitation,?electrolytes replenished and treatment for starvation ketoacidosis, hypernatremia and acute kidney injury.? Pt now medically cleared and transferred to psychiatric unit. ?Patient was recently discharged from the unit around 05/13/2021. HOspital course: Patient currently suffers from severe paranoid persecutory delusions that frequently direct him to harm himself in order to save his family from future torture.? Patient has no insight.? Currently refuses medications and remains on Section 12 B. he says he does not necessarily want to leave the hospital, nor does he want to stay but does not want to sign a CV worried that it will be unacceptable to his persecutors. -patient remains in severe mental anguish over what is the right thing to do, very worried about making the wrong decision which will aggravate his persecutors and therefor put his family in future jeopardy; patient eventually decided to sign a CV but then later signed a 3 day notice.? He agreed to take Clozaril but then was again ambivalent.? Patient remains willing to self-harm to the point of suicide based on paranoid delusions that he must do so in order to save his family from future torment. -over the weekend patient was screaming, out of control and required medication restraint 07/11 patient remains with joel paranoid, persecutory delusions, thoughts to starve himself to based on paranoid delusion, no insight and impaired judgment. -currently he is eating and drinking but only minimally 07/12 pt decided to take Clozaril 07/13:? Patient is tormented seems to have reached a boiling point and he agreed to take Clozaril and sign in 07/15- says he will try a new approach to his decision making; agrees to continue taking Clozaril.? Remains guarded, and with paranoid delusions 07/21 floridly psychotic with intense paranoid, persecutory delusions that are overwhelming patient into repeated unsafe thinking or behavior including suicide, and starvation and water deprivation.? Patient has no insight and does not believe that medications help at all; he goes back and forth about whether to take medications as he's very anxious about contradicting his persecutors whom he believes give him messages directing his behavior. 07/23 pt again decided to stop taking medications, a frequent decision emerging every few days as patient again feels that it's safer to listen to his persecutors (paranoid delusions) then it is to go against their edict and take medications. Over the past 2 weeks, only after lengthy discussions, would patient change his mind and go back to taking medications; however this reversion is not due to any moment of insight but rather a combination of emotional exhaustion and him trying to find a loophole in his persecutors edict to not take medications. -patient put in 3 day notice 07/24-07/28: sometimes withdrawn; sometimes agitated, yelling in anguished distress about being threatened by tormentors; intermittently taking medications 07/29 - rescinded 3 day notice -since then, he's agreed to take medications, though this is intermittent; taking medications however does not represent improved insight or judgment, but as patient explains, is only done because he has for the moment not concluded that They, his torementors, have specifically barred him from doing so. This makes medication management difficult since he is on Clozaril which has a narrow window for which one can safely start/stop this med. om -He continues to intermittently stop Eating and drinking in obedience to paranoid delusion with idea that he should either commit suicide or undergo some other torture; remains without insight; remains anguished. He volunteers that he has received direction on how to kill himself post discharge and he intermittently has plans to kill himself on the unit, though he has thus far been able to limit his actions towards this end. Patient believes he receives messages through various avenues, having thoughts implanted in his head or communications given through media or circumstance. Patient reports he wants to trust this designer/writer and staff but is never sure whether or not designer/writer/staff is part of a conspiracy to torture him. on 08/08: Patient exhibited bizarre, generating movements of primarily his upper torso; designer/writer examined patient and this was not dystonia, akathisia and was not seizure activity but rather patient's own voluntary behavior done in obedience to direction from his imagined persecutor; pt later confirmed this. NMS ruled out -labs (afebrile, autonomic stable; LDH wnl; CPK elevated as expected). Clozapine induced myoclonus considered but again given patient's presentation and his own self reporting that these movements are guided by delusional thought, very unlikely. Patient told designer/writer that since medications are being given to treat a mental illness, which he does not believe he has, he will no longer take medications -08/10required IM medication, chemical restraint for wild in unsafe behavior, hitting his head against the wall unable to be redirected 08/11 more calm; body movements not present; can advance to q5 and off 1:1 for now (discussed with staff who agree). 08/18 -pt restarted on Clozapine (on 08/17) -calm on unit, but not willing to enage in talk therapy; mostly pacing halls during day -Bizarre body movements remain resolved? -patient's movements voluntary and done in obedience to delusion 08/23: Patient remains difficult to engage in is only superficially interactive with designer/writer which has been the case since a few days before court. Will continue to titrate Clozaril. pt denies med side-effects -pt agreed to Covid vaccination; he was not interested in hearing about risks/side-effects though designer/writer discussed anyway; he asked if he could get Flu vaccination and nursing will review to make sure he did not already get. ?Pt got Moderna X1 on 08/24/2108/26: no changes in med regimen, continue clozapine 08/27: Pt will continue on clozapine trial, which is being adjusted as tolerated for efficacy 08/28: Pt is redirectable, accepting treatment, will continue on clozapine trial for psychosis, SI -no change; politely refuses to engage; denies complaints and has no requests; mostly keeps to himself and often paces the hallways. 09/01 remains guarded; polite to designer/writer but unwilling to engage. pt has been watching TV and has at times looks like he's interacting with TV, smiling and nodding his head; will not discuss this with designer/writer. 09/02/21 and onward.... continue with current treatment no changes Barrier to discharge:? Patient is floridly psychotic; he has no insight and currently suffers from paranoid, persecutory delusions, believing he needs to either kill himself or engage in behaviors that will result in , in order to fulfill his persecutors demands; if discharged before stable, patient will quickly decompensate and be at high risk for suicide; he requires locked unit, and likely a [facility] admission, to resolve symptoms with medication management.?[facility] application submitted:? Crude Oil Treater reviewed case with Dr. Mcleod and other team members and it was discussed whether or not Dilshad needs a longer term hospitalization such as [facility]. Patient recently revealed that over the days/weeks prior to this admission, in addition to trying to starve/dehydrate himself to , he tried to kill himself 2x by Tylenol overdose, making designer/writer more aware of the extent of his unsafe behavior. Patient remains without any insight at all. He is fully overwhelmed by persecutory delusions. At this point it is becoming increasing difficult for designer/writer to imagine a scenario where Dilshad is safe outside of a longer term commitment where he is court ordered to take medications. For while he has indeed benefited from Clozapine (improved mood, relief from emotional anguish and reprieve from being contacted by persecutors [delusions]) his illness keeps him from attributing that benefit to medication; rather he maintains that medications are placebos and his relief is due to some other cause; and thus, on his own, patient's illness renders him unable to remain adherent with medications. However, if Dilshad had an extended hospital stay and remained on medications for an extended period of months, he may experience his relief from torture? as a product of medications and thus achieve enough insight to remain on medications as an outpatient. Team discussed and fully agrees that patient requires [facility] admission for his safety. PLAN: q5min checks (currently no unsafe behaviors) Court ordered involuntary commitment; court ordered substituted judgment/Euceda for medication CLOZARIL to 150MG Q.H.S (on 09/05/20)., will continue to titrate; will consider faster titration however want to make sure patient does not get hypotensive (In the past he got toxicity during titration however this was in conjunction with taking SSRI) cannot refuse PO Clozaril; give IM Ziprasidone if refuses received Moderna X1 on 08/24/21 Ziprasidone 20mg IM if refuses Clozaril -Team agrees that patient requires [facility] admission and submitted application to [facility] -changed scheduled clonazepam 0.25 mg b.i.d. PRN for anxiety Micromedex: 1)?Rapid titration in hospitalized patients: Day 1, 50 mg orally followed by 50 to 100 mg as needed every 6 hours (up to an additional 150 mg). Thereafter, may increase daily dosage in increments of 50 to 100 mg. Mean dosage on day 1 was 207 mg/day in patients with prior clozapine exposure and 59.7 mg without prior exposure. Mean titration over 5.44 days to a dosage of 260 mg/day, lead to a mean dosage at discharge of 322 mg/day ?Sarika HEBERT, Peggy? A, Wagner? NG, et al: Rapid clozapine titration in patients with treatment refractory schizophrenia. Psychiatr Q 2016; 87(2):315-322. I spent minutes with the patient and/or on the patient floor today, greater than?50% of which was spent counseling/coordinating care. Reason for contiued inpatient stay Substantial Risk for: harm to self
[2021-09-05 20:00] VITALS: BP 110/67; PULSE 82; RESP 16; TEMP 36; O2SAT 96
[2021-09-05] MEDS: cloZAPine 100 MG, cloZAPine 50 MG 150 MG PO (20:26)
[2021-09-06 06:00] VITALS: BP 128/76; PULSE 83; RESP 17; TEMP 36.6; O2SAT 96
[2021-09-06 18:00] VITALS: BP 127/80; PULSE 91; TEMP 36.7
--- NOTE | 2021-09-06 18:33 | P.PNPSI_ITS ---
Subjective Subjective Date of Service: 09/06/21 Reason For Visit: Suicidal Interim History: Not willing to talk about symptoms or much of anything; says medication is well tolerated and denies any side effects. Asks again when he will be able to be transferred to [facility]] and accepts that it is still undetermined. Denies any requests or complaints. Mental Status Exam Mental Status Exam Narrative: No change to metnal staus: pt is alert and oriented to self, time, and situation (though does not think he has mental illness); appearance a little unkempt but adequate hygiene; behavior is guarded, though calm, mostly keeping to himself and pacing hallways; adequate eye contact; mood is alright and affect is constricted; thought process is goal oriented; thought content is on [facility]; otherwise guarded but alluding to continued perseveration on paranoid, persecutory delusions about being tortured; denies SI though typically intermittent SI as fulfillment of task assigned to him by persecutors; patient believes he receives messages through various avenues, having thoughts implanted in his head or communications given through media. Denies [facility]. ?Patients insight and judgment are impaired Diagnostics Vital Signs (24Hr): Vital Signs - 24 hr 09/05/21 20:00 09/06/21 06:00 Temperature 96.8 F 97.9 F Pulse Rate 82 83 Respiratory Rate 16 17 Blood Pressure 110/67 128/76 Pulse Oximetry 96 96 Labs Results: 08/29/21 08:12 08/09/21 18:43 Labs: Laboratory Results - last 48 hr 09/05/21 08:18 Absolute Neuts (auto) 4.9 Medications Medications Current Medications Acetaminophen (Acetaminophen 325 Mg Tablet) 650 mg PO Q6H PRN PRN Reason: Pain, Mild (Pain Scale 1-3) Al Hydroxide/Mg Hydroxide (Magnesium Hydrox/Alum Hydrox 30 Ml Oral.Susp) 30 ml PO Q6H PRN PRN Reason: Heartburn/Nausea Calcium Carbonate (Calcium Carbonate 750 Mg Tab.Chew) 750 mg PO Q4H PRN PRN Reason: Indigestion Last Admin: 08/06/21 19:35 Dose: 750 mg Documented by: Clozapine 100 mg/ Clozapine 50 (mg) 150 mg PO BEDTIME FIDEL Last Admin: 09/05/21 20:26 Dose: 150 mg Documented by: Diphenhydramine HCl (Diphenhydramine Hcl 25 Mg Tablet) 50 mg PO Q4H PRN PRN Reason: agitation Last Admin: 07/26/21 09:00 Dose: 50 mg Documented by: Hydroxyzine HCl (Hydroxyzine Hcl 25 Mg Tablet) 25 mg PO BEDTIME PRN PRN Reason: Anxiety Last Admin: 08/04/21 21:07 Dose: 25 mg Documented by: Magnesium Hydroxide (Milk Of Magnesia 30 Ml Oral.Susp) 30 ml PO DAILY PRN PRN Reason: Constipation Nicotine Polacrilex (Nicotine Polacrilex 2 Mg Gum) 2 mg BUCCAL Q2H PRN PRN Reason: Nicotine Cravings Trazodone HCl (Trazodone Hcl 50 Mg Tablet) 50 mg PO BEDTIME PRN PRN Reason: Insomnia Ziprasidone (Ziprasidone 20 Mg Capsule) 20 mg PO TID PRN PRN Reason: agitation Ziprasidone (Ziprasidone Mesylate 20 Mg Vial) 20 mg IM DAILY PRN PRN Reason: on Euceda; if refuses PO Last Admin: 08/20/21 21:03 Dose: 20 mg Documented by: Allergies Allergies Allergy/AdvReac Type Severity Reaction Status Date / Time olanzapine [OLANZAPINE] Allergy Severe FACIAL Verified 04/06/21 10:20 SWELLING Assessment & Plan Assessment & Plan (1) Schizoaffective disorder: Status: Chronic Code(s): F25.9 - Schizoaffective disorder, unspecified Assessment and Plan: started meds few days ago - tolerating so far- maybe calmer due to it still pretty shut down (2) Starvation ketoacidosis: Status: Resolved Code(s): E87.2 - Acidosis Assessment and Plan: denies current plan for this (3) PTSD (post-traumatic stress disorder): Status: Suspected Code(s): F43.10 - Post-traumatic stress disorder, unspecified Assessment and Plan: Impression: Patient is a 35-year-old male with history of schizophrenia, paranoid type who presents for paranoid, persecutory delusions, in the face of going off medications, prompting pt to attempt suicide by starvation and water deprivation. While trying to starve himself to , and just days before this admission, patient also attempted to kill himself by overdosing on Tylenol; when this did not work he tried again at a higher dose. Pt now presents to [facility] from medical floor where he required fluid resuscitation,?electrolytes replenished and treatment for starvation ketoacidosis, hypernatremia and acute kidney injury.? Pt now medically cleared and transferred to psychiatric unit. ?Patient was recently discharged from the unit around 05/13/2021. HOspital course: Patient currently suffers from severe paranoid persecutory delusions that frequently direct him to harm himself in order to save his family from future torture.? Patient has no insight.? Currently refuses medications and remains on Section 12 B. he says he does not necessarily want to leave the hospital, nor does he want to stay but does not want to sign a CV worried that it will be unacceptable to his persecutors. -patient remains in severe mental anguish over what is the right thing to do, very worried about making the wrong decision which will aggravate his persecutors and therefor put his family in future jeopardy; patient eventually decided to sign a CV but then later signed a 3 day notice.? He agreed to take Clozaril but then was again ambivalent.? Patient remains willing to self-harm to the point of suicide based on paranoid delusions that he must do so in order to save his family from future torment. -over the weekend patient was screaming, out of control and required medication restraint 07/11 patient remains with joel paranoid, persecutory delusions, thoughts to starve himself to based on paranoid delusion, no insight and impaired judgment. -currently he is eating and drinking but only minimally 07/12 pt decided to take Clozaril 07/13:? Patient is tormented seems to have reached a boiling point and he agreed to take Clozaril and sign in 07/15- says he will try a new approach to his decision making; agrees to continue taking Clozaril.? Remains guarded, and with paranoid delusions 07/21 floridly psychotic with intense paranoid, persecutory delusions that are overwhelming patient into repeated unsafe thinking or behavior including suicide, and starvation and water deprivation.? Patient has no insight and does not believe that medications help at all; he goes back and forth about whether to take medications as he's very anxious about contradicting his persecutors whom he believes give him messages directing his behavior. 07/23 pt again decided to stop taking medications, a frequent decision emerging every few days as patient again feels that it's safer to listen to his persecutors (paranoid delusions) then it is to go against their edict and take medications. Over the past 2 weeks, only after lengthy discussions, would patient change his mind and go back to taking medications; however this reversion is not due to any moment of insight but rather a combination of emotional exhaustion and him trying to find a loophole in his persecutors edict to not take medications. -patient put in 3 day notice 07/24-07/28: sometimes withdrawn; sometimes agitated, yelling in anguished di stress about being threatened by tormentors; intermittently taking medications 07/29 - rescinded 3 day notice -since then, he's agreed to take medications, though this is intermittent; taking medications however does not represent improved insight or judgment, but as patient explains, is only done because he has for the moment not concluded that They, his torementors, have specifically barred him from doing so. This makes medication management difficult since he is on Clozaril which has a narrow window for which one can safely start/stop this med. om -He continues to intermittently stop Eating and drinking in obedience to paranoid delusion with idea that he should either commit suicide or undergo some other torture; remains without insight; remains anguished. He volunteers that he has received direction on how to kill himself post discharge and he intermittently has plans to kill himself on the unit, though he has thus far been able to limit his actions towards this end. Patient believes he receives messages through various avenues, having thoughts implanted in his head or communications given through media or circumstance. Patient reports he wants to trust this technical writer and editor and staff but is never sure whether or not technical writer and editor/staff is part of a conspiracy to torture him. on 08/08: Patient exhibited bizarre, generating movements of primarily his upper torso; technical writer and editor examined patient and this was not dystonia, akathisia and was not seizure activity but rather patient's own voluntary behavior done in obedience to direction from his imagined persecutor; pt later confirmed this. NMS ruled out -labs (afebrile, autonomic stable; LDH wnl; CPK elevated as expected). Clozapine induced myoclonus considered but again given patient's presentation and his own self reporting that these movements are guided by delusional thought, very unlikely. Patient told technical writer and editor that since medications are being given to treat a mental illness, which he does not believe he has, he will no longer take medications -08/10required IM medication, chemical restraint for wild in unsafe behavior, hitting his head against the wall unable to be redirected 08/11 more calm; body movements not present; can advance to q5 and off 1:1 for now (discussed with staff who agree). 08/18 -pt restarted on Clozapine (on 08/17) -calm on unit, but not willing to enage in talk therapy; mostly pacing halls during day -Bizarre body movements remain resolved? -patient's movements voluntary and done in obedience to delusion 08/23: Patient remains difficult to engage in is only superficially interactive with technical writer and editor which has been the case since a few days before court. Will continue to titrate Clozaril. pt denies med side-effects -pt agreed to Covid vaccination; he was not interested in hearing about risks/side-effects though technical writer and editor discussed anyway; he asked if he could get Flu vaccination and nursing will review to make sure he did not already get. ?Pt got Moderna X1 on 08/24/2108/26: no changes in med regimen, continue clozapine 08/27: Pt will continue on clozapine trial, which is being adjusted as tolerated for efficacy 08/28: Pt is redirectable, accepting treatment, will continue on clozapine trial for psychosis, SI -no change; politely refuses to engage; denies complaints and has no requests; mostly keeps to himself and often paces the hallways. 09/01 remains guarded; polite to technical writer and editor but unwilling to engage. pt has been watching TV and has at times looks like he's interacting with TV, smiling and nodding his head; will not discuss this with technical writer and editor. 09/02/21 and onward.... continue with current treatment no changes Barrier to discharge:? Patient is floridly psychotic; he has no insight and currently suffers from paranoid, persecutory delusions, believing he needs to either kill himself or engage in behaviors that will result in , in order to fulfill his persecutors demands; if discharged before stable, patient will quickly decompensate and be at high risk for suicide; he requires locked unit, and likely a terminologist admission, to resolve symptoms with medication management.?[facility] application submitted:? Trade Clerk reviewed case with Dr. Mcleod and other team members and it was discussed whether or not Dilshad needs a longer term hospitalization such as [facility]. Patient recently revealed that over the days/weeks prior to this admission, in addition to trying to starve/dehydrate himself to , he tried to kill himself 2x by Tylenol overdose, making technical writer and editor more aware of the extent of his unsafe behavior. Patient remains without any insight at all. He is fully overwhelmed by persecutory delusions. At this point it is becoming increasing difficult for technical writer and editor to imagine a scenario where Dilshad is safe outside of a longer term commitment where he is court ordered to take medications. For while he has indeed benefited from Clozapine (improved mood, relief from emotional anguish and reprieve from being contacted by persecutors [delusions]) his illness keeps him from attributing that benefit to medication; rather he maintains that medications are placebos and his relief is due to some other cause; and thus, on his own, patient's illness renders him unable to remain adherent with medications. However, if Dilshad had an extended hospital stay and remained on medications for an extended period of months, he may experience his relief from torture? as a product of medications and thus achieve enough insight to remain on medications as an outpatient. Team discussed and fully agrees that patient requires [facility]] admission for his safety. PLAN: q5min checks (currently no unsafe behaviors) Court ordered involuntary commitment; court ordered substituted judgment/Euceda for medication CLOZARIL to 150MG Q.H.S (on 09/05/20)., will continue to titrate; cannot refuse PO Clozaril; give IM Ziprasidone if refuses received Moderna X1 on 08/24/21 Ziprasidone 20mg IM if refuses Clozaril -Team agrees that patient requires terminologist admission and submitted application to [facility] -changed scheduled clonazepam 0.25 mg b.i.d. PRN for anxiety Micromedex: 1)?Rapid titration in hospitalized patients: Day 1, 50 mg orally followed by 50 to 100 mg as needed every 6 hours (up to an additional 150 mg). Thereafter, may increase daily dosage in increments of 50 to 100 mg. Mean dosage on day 1 was 207 mg/day in patients with prior clozapine exposure and 59.7 mg without prior exposure. Mean titration over 5.44 days to a dosage of 260 mg/day, lead to a mean dosage at discharge of 322 mg/day ?Sarika HEBERT, Peggy? A, Wagner? NG, et al: Rapid clozapine titration in patients with treatment refractory schizophrenia. Psychiatr Q 2016; 87(2):315-322. I spent minutes with the patient and/or on the patient floor today, greater than?50% of which was spent counseling/coordinating care. Reason for contiued inpatient stay Substantial Risk for: harm to others
[2021-09-06] MEDS: cloZAPine 100 MG, cloZAPine 50 MG 150 MG PO (19:23)
[2021-09-07 06:00] VITALS: BP 138/79; PULSE 86; RESP 18; TEMP 37.1; O2SAT 98
--- NOTE | 2021-09-07 10:48 | P.PNPSI_ITS ---
Subjective Subjective Date of Service: 09/07/21 Reason For Visit: Suicidal Interim History: dismissive today; does not want to talk; denies any complaints or requests Mental Status Exam Mental Status Exam Narrative: No change to metnal staus: pt is alert and oriented to self, time, and situation (though does not think he has mental illness); appearance a little unkempt but adequate hygiene; behavior is guarded, though calm, mostly keeping to himself and pacing hallways; minimal eye contact; mood is fine and affect is constricted; thought process is goal oriented; thought content is on Vibra; otherwise guarded but alluding to continued perseveration on paranoid, persecutory delusions about being tortured; denies SI though typically intermittent SI as fulfillment of task assigned to him by persecutors; patient believes he receives messages through various avenues, having thoughts implanted in his head or communications given through media. Denies [facility]. ?Patients insight and judgment are impaired Diagnostics Vital Signs (24Hr): Vital Signs - 24 hr 09/06/21 18:00 09/07/21 06:00 Temperature 98.0 F 98.7 F Pulse Rate 91 86 Respiratory Rate 18 Blood Pressure 127/80 138/79 Pulse Oximetry 98 Labs Results: 08/29/21 08:12 08/09/21 18:43 Medications Medications Current Medications Acetaminophen (Acetaminophen 325 Mg Tablet) 650 mg PO Q6H PRN PRN Reason: Pain, Mild (Pain Scale 1-3) Al Hydroxide/Mg Hydroxide (Magnesium Hydrox/Alum Hydrox 30 Ml Oral.Susp) 30 ml PO Q6H PRN PRN Reason: Heartburn/Nausea Calcium Carbonate (Calcium Carbonate 750 Mg Tab.Chew) 750 mg PO Q4H PRN PRN Reason: Indigestion Last Admin: 08/06/21 19:35 Dose: 750 mg Documented by: Clozapine 100 mg/ Clozapine 50 (mg) 150 mg PO BEDTIME FIDEL Last Admin: 09/06/21 19:23 Dose: 150 mg Documented by: Diphenhydramine HCl (Diphenhydramine Hcl 25 Mg Tablet) 50 mg PO Q4H PRN PRN Reason: agitation Last Admin: 07/26/21 09:00 Dose: 50 mg Documented by: Hydroxyzine HCl (Hydroxyzine Hcl 25 Mg Tablet) 25 mg PO BEDTIME PRN PRN Reason: Anxiety Last Admin: 08/04/21 21:07 Dose: 25 mg Documented by: Magnesium Hydroxide (Milk Of Magnesia 30 Ml Oral.Susp) 30 ml PO DAILY PRN PRN Reason: Constipation Nicotine Polacrilex (Nicotine Polacrilex 2 Mg Gum) 2 mg BUCCAL Q2H PRN PRN Reason: Nicotine Cravings Trazodone HCl (Trazodone Hcl 50 Mg Tablet) 50 mg PO BEDTIME PRN PRN Reason: Insomnia Ziprasidone (Ziprasidone 20 Mg Capsule) 20 mg PO TID PRN PRN Reason: agitation Ziprasidone (Ziprasidone Mesylate 20 Mg Vial) 20 mg IM DAILY PRN PRN Reason: on Euceda; if refuses PO Last Admin: 08/20/21 21:03 Dose: 20 mg Documented by: Allergies Allergies Allergy/AdvReac Type Severity Reaction Status Date / Time olanzapine [OLANZAPINE] Allergy Severe FACIAL Verified 04/06/21 10:20 SWELLING Assessment & Plan Assessment & Plan (1) Schizoaffective disorder: Status: Chronic Code(s): F25.9 - Schizoaffective disorder, unspecified Assessment and Plan: started meds few days ago - tolerating so far- maybe calmer due to it still pretty shut down (2) Starvation ketoacidosis: Status: Resolved Code(s): E87.2 - Acidosis Assessment and Plan: denies current plan for this (3) PTSD (post-traumatic stress disorder): Status: Suspected Code(s): F43.10 - Post-traumatic stress disorder, unspecified Assessment and Plan: Impression: Patient is a 35-year-old male with history of schizophrenia, paranoid type who presents for paranoid, persecutory delusions, in the face of going off medications, prompting pt to attempt suicide by starvation and water deprivation. While trying to starve himself to , and just days before this admission, patient also attempted to kill himself by overdosing on Tylenol; when this did not work he tried again at a higher dose. Pt now presents to M5 from medical floor where he required fluid resuscitation,?electrolytes replenished and treatment for starvation ketoacidosis, hypernatremia and acute kidney injury.? Pt now medically cleared and transferred to psychiatric unit. ?Patient was recently discharged from the unit around 05/13/2021. HOspital course: Patient currently suffers from severe paranoid persecutory delusions that frequently direct him to harm himself in order to save his family from future torture.? Patient has no insight.? Currently refuses medications and remains on Section 12 B. he says he does not necessarily want to leave the hospital, nor does he want to stay but does not want to sign a CV worried that it will be unacceptable to his persecutors. -patient remains in severe mental anguish over what is the right thing to do, very worried about making the wrong decision which will aggravate his perse cutors and therefor put his family in future jeopardy; patient eventually decided to sign a CV but then later signed a 3 day notice.? He agreed to take Clozaril but then was again ambivalent.? Patient remains willing to self-harm to the point of suicide based on paranoid delusions that he must do so in order to save his family from future torment. -over the weekend patient was screaming, out of control and required medication restraint 07/11 patient remains with joel paranoid, persecutory delusions, thoughts to starve himself to based on paranoid delusion, no insight and impaired judgment. -currently he is eating and drinking but only minimally 07/12 pt decided to take Clozaril 07/13:? Patient is tormented seems to have reached a boiling point and he agreed to take Clozaril and sign in 07/15- says he will try a new approach to his decision making; agrees to continue taking Clozaril.? Remains guarded, and with paranoid delusions 07/21 floridly psychotic with intense paranoid, persecutory delusions that are overwhelming patient into repeated unsafe thinking or behavior including s uicide, and starvation and water deprivation.? Patient has no insight and does not believe that medications help at all; he goes back and forth about whether to take medications as he's very anxious about contradicting his persecutors whom he believes give him messages directing his behavior. 07/23 pt again decided to stop taking medications, a frequent decision emerging every few days as patient again feels that it's safer to listen to his persecutors (paranoid delusions) then it is to go against their edict and take medications. Over the past 2 weeks, only after lengthy discussions, would michelle rodriguez change his mind and go back to taking medications; however this reversion is not due to any moment of insight but rather a combination of emotional exhaustion and him trying to find a loophole in his persecutors edict to not take medications. -patient put in 3 day notice 07/24-07/28: sometimes withdrawn; sometimes agitated, yelling in anguished distress about being threatened by tormentors; intermittently taking medications 07/29 - rescinded 3 day notice -since then, he's agreed to take medications, though this is intermittent; taking medications however does not represent improved insight or judgment, but as patient explains, is only done because he has for the moment not concluded that They, his torementors, have specifically barred him from doing so. This makes medication management difficult since he is on Clozaril which has a narrow window for which one can safely start/stop this med. om -He continues to intermittently stop Eating and drinking in obedience to paranoid delusion with idea that he should either commit suicide or undergo some other torture; remains without insight; remains anguished. He volunteers that he has received direction on how to kill himself post discharge and he intermittently has plans to kill himself on the unit, though he has thus far been able to limit his actions towards this end. Patient believes he receives m essages through various avenues, having thoughts implanted in his head or communications given through media or circumstance. Patient reports he wants to trust this press writer and staff but is never sure whether or not press writer/staff is part of a conspiracy to torture him. on 08/08: Patient exhibited bizarre, generating movements of primarily his upper torso; press writer examined patient and this was not dystonia, akathisia and was not seizure activity but rather patient's own voluntary behavior done in obedience to direction from his imagined persecutor; pt later confirmed this. NMS ruled out -labs (afebrile, autonomic stable; LDH wnl; CPK elevated as expected). Clozapine induced myoclonus considered but again given patient's presentation and his own self reporting that these movements are guided by delusional thought, very unlikely. Patient told press writer that since medications are being given to treat a mental illness, which he does not believe he has, he will no longer take medications -08/10required IM medication, chemical restraint for wild in unsafe behavior, hitting his head against the wall unable to be redirected 08/11 more calm; body movements not present; can advance to q5 and off 1:1 for now (discussed with staff who agree). 08/18 -pt restarted on Clozapine (on 08/17) -calm on unit, but not willing to enage in talk therapy; mostly pacing halls during day -Bizarre body movements remain resolved? -patient's movements voluntary and done in obedience to delusion 08/23: Patient remains difficult to engage in is only superficially interactive with press writer which has been the case since a few days before court. Will continue to titrate Clozaril. pt denies med side-effects -pt agreed to Covid vaccination; he was not interested in hearing about risks/side-effects though press writer discussed anyway; he asked if he could get Flu vaccination and nursing will review to make sure he did not already get. ?Pt got Moderna X1 on 08/24/2108/26: no changes in med regimen, continue clozapine 08/27: Pt will continue on clozapine trial, which is being adjusted as tolerated for efficacy 08/28: Pt is redirectable, accepting treatment, will continue on clozapine trial for psychosis, SI -no change; politely refuses to engage; denies complaints and has no requests; mostly keeps to himself and often paces the hallways. 09/01 remains guarded; polite to press writer but unwilling to engage. pt has been watching TV and has at times looks like he's interacting with TV, smiling and nodding his head; will not discuss this with press writer. 09/02/21 and onward.... continue with current treatment no changes Barrier to discharge:? Patient is floridly psychotic; he has no insight and currently suffers from paranoid, persecutory delusions, believing he needs to either kill himself or engage in behaviors that will result in , in order to fulfill his persecutors demands; if discharged before stable, patient will quickly decompensate and be at high risk for suicide; he requires locked unit, and likely a [facility] admission, to resolve symptoms with medication ma nagement.?[facility] application submitted:? [employer] reviewed case with Dr. Mcleod and other team members and it was discussed whether or not Dilshad needs a longer term hospitalization such as [facility]. Patient recently revealed that over the days/weeks prior to this admission, in addition to trying to starve/dehydrate himself to , he tried to kill himself 2x by Tylenol overdose, making press writer more aware of the extent of his unsafe behavior. Patient remains without any insight at all. He is fully overwhelmed by persecutory delusions. At this point it is becoming increasing difficult for press writer to imagine a scenario where Dilshad is safe outside of a longer term commitment where he is court ordered to take medications. For while he has indeed benefited from Clozapine (improved mood, relief from emotional anguish and reprieve from being contacted by persecutors [delusions]) his illness keeps him from attributing that benefit to medication; rather he maintains that medications are placebos and his relief is due to some other cause; and thus, on his own, patient's illness renders him unable to remain adherent with medications. However, if Dilshad had an extended hospital stay and remained on medications for an extended period of months, he may experience his relief from torture? as a product of medications and thus achieve enough insight to remain on medications as an outpatient. Team discussed and fully agrees that patient requires [facility] admission for his safety. PLAN: q5min checks (currently no unsafe behaviors) Court ordered involuntary commitment; court ordered substituted judgment/Euceda for medication CLOZARIL to 150MG Q.H.S (on 09/05/20)., will continue to titrate; START Clozarile 25mg AM starting on 09/07/20) cannot refuse PO Clozaril; give IM Ziprasidone if refuses received Moderna X1 on 08/24/21 Ziprasidone 20mg IM if refuses Clozaril -Team agrees that patient requires middle or intermediate [employer] principal admission and [facility] -changed scheduled clonazepam 0.25 mg b.i.d. PRN for anxiety Micromedex: 1)?Rapid titration in hospitalized patients: Day 1, 50 mg orally followed by 50 to 100 mg as needed every 6 hours (up to an additional 150 mg). Thereafter, may increase daily dosage in increments of 50 to 100 mg. Mean dosage on day 1 was 207 mg/day in patients with prior clozapine exposure and 59.7 mg without prior exposure. Mean titration over 5.44 days to a dosage of 260 mg/day, lead to a mean dosage at discharge of 322 mg/day ?Sarika HEBERT, Peggy? A, Wagner? NG, et al: Rapid clozapine titration in patients with treatment refractory schizophrenia. Psychiatr Q 2016; 87(2):315-322. I spent minutes with the patient and/or on the patient floor today, greater than?50% of which was spent counseling/coordinating care. Reason for contiued inpatient stay Substantial Risk for: harm to self and inability to function
[2021-09-07 18:00] VITALS: BP 125/85; PULSE 112; RESP 16; TEMP 36.3; O2SAT 95
[2021-09-07] MEDS: cloZAPine 100 MG, cloZAPine 50 MG 150 MG PO (20:52)
--- NOTE | 2021-09-08 10:34 | P.PNPSI_ITS ---
Subjective Subjective Date of Service: 09/08/21 Reason For Visit: Suicidal Interim History: Does not want to talk. No complaints no requests. Asks about VIBRA hoping it will be soon. Mental Status Exam Mental Status Exam Narrative: ?No change to metnal staus: pt is alert and oriented to self, time, and situation (though does not think he has mental illness); appearance a little unkempt but adequate hygiene; behavior is guarded, though calm, mostly keeping to himself and pacing hallways; minimal eye contact; mood is fine and affect is constricted; thought process is goal oriented; thought content is on Vibra; otherwise guarded but alluding to continued perseveration on paranoid, persecutory delusions about being tortured; denies SI though typically intermittent SI as fulfillment of task assigned to him by persecutors; patient believes he receives messages through various aven ues, having thoughts implanted in his head or communications given through media. Denies AvH. ?Patients insight and judgment are impaired Diagnostics Vital Signs (24Hr): Vital Signs - 24 hr 09/07/21 18:00 Temperature 97.3 F Pulse Rate 112 H Respiratory Rate 16 Blood Pressure 125/85 Pulse Oximetry 95 Labs Results: 08/29/21 08:12 08/09/21 18:43 Medications Medications Current Medications Acetaminophen (Acetaminophen 325 Mg Tablet) 650 mg PO Q6H PRN PRN Reason: Pain, Mild (Pain Scale 1-3) Al Hydroxide/Mg Hydroxide (Magnesium Hydrox/Alum Hydrox 30 Ml Oral.Susp) 30 ml PO Q6H PRN PRN Reason: Heartburn/Nausea Calcium Carbonate (Calcium Carbonate 750 Mg Tab.Chew) 750 mg PO Q4H PRN PRN Reason: Indigestion Last Admin: 08/06/21 19:35 Dose: 750 mg Documented by: Clozapine 100 mg/ Clozapine 50 (mg) 150 mg PO BEDTIME FIDEL Last Admin: 09/07/21 20:52 Dose: 150 mg Documented by: Clozapine (Clozapine 25 Mg Tablet) 25 mg PO DAILY FIDEL Diphenhydramine HCl (Diphenhydramine Hcl 25 Mg Tablet) 50 mg PO Q4H PRN PRN Reason: agitation Last Admin: 07/26/21 09:00 Dose: 50 mg Documented by: Hydroxyzine HCl (Hydroxyzine Hcl 25 Mg Tablet) 25 mg PO BEDTIME PRN PRN Reason: Anxiety Last Admin: 08/04/21 21:07 Dose: 25 mg Documented by: Magnesium Hydroxide (Milk Of Magnesia 30 Ml Oral.Susp) 30 ml PO DAILY PRN PRN Reason: Constipation Nicotine Polacrilex (Nicotine Polacrilex 2 Mg Gum) 2 mg BUCCAL Q2H PRN PRN Reason: Nicotine Cravings Trazodone HCl (Trazodone Hcl 50 Mg Tablet) 50 mg PO BEDTIME PRN PRN Reason: Insomnia Ziprasidone (Ziprasidone 20 Mg Capsule) 20 mg PO TID PRN PRN Reason: agitation Ziprasidone (Ziprasidone Mesylate 20 Mg Vial) 20 mg IM DAILY PRN PRN Reason: on Euceda; if refuses PO Last Admin: 08/20/21 21:03 Dose: 20 mg Documented by: Allergies Allergies Allergy/AdvReac Type Severity Reaction Status Date / Time olanzapine [OLANZAPINE] Allergy Severe FACIAL Verified 04/06/21 10:20 SWELLING Assessment & Plan Assessment & Plan (1) Schizoaffective disorder: Status: Chronic Code(s): F25.9 - Schizoaffective disorder, unspecified Assessment and Plan: started meds few days ago - tolerating so far- maybe calmer due to it still pretty shut down (2) Starvation ketoacidosis: Status: Resolved Code(s): E87.2 - Acidosis Assessment and Plan: denies current plan for this (3) PTSD (post-traumatic stress disorder): Status: Suspected Code(s): F43.10 - Post-traumatic stress disorder, unspecified Assessment and Plan: Impression: Patient is a 35-year-old male with history of schizophrenia, paranoid type who presents for paranoid, persecutory delusions, in the face of going off medications, prompting pt to attempt suicide by starvation and water deprivation. While trying to starve himself to , and just days before this admission, patient also attempted to kill himself by overdosing on Tylenol; when this did not work he tried again at a higher dose. Pt now presents to from medical floor where he required fluid resuscitation,?electrolytes replenished and treatment for starvation ketoacidosis, hypernatremia and acute kidney injury.? Pt now medically cleared and transferred to psychiatric unit. ?Patient was recently discharged from the unit around 05/13/2021. HOspital course: Patient currently suffers from severe paranoid persecutory delusions that frequently direct him to harm himself in order to save his family from future torture.? Patient has no insight.? Currently refuses medications and remains on Section 12 B. he says he does not necessarily want to leave the hospital, nor does he want to stay but does not want to sign a CV worried that it will be unacceptable to his persecutors. -patient remains in severe mental anguish over what is the right thing to do, very worried about making the wrong decision which will aggravate his persecutors and therefor put his family in future jeopardy; patient eventually decided to sign a CV but then later signed a 3 day notice.? He agreed to take Clozaril but then was again ambivalent.? Patient remains willing to self-harm to the point of suicide based on paranoid delusions that he must do so in order to save his family from future torment. -over the weekend patient was screaming, out of control and required medication restraint 07/11 patient remains with joel paranoid, persecutory delusions, thoughts to starve himself to based on paranoid delusion, no insight and impaired judgment. -currently he is eating and drinking but only minimally 07/12 pt decided to take Clozaril 07/13:? Patient is tormented seems to have reached a boiling point and he agreed to take Clozaril and sign in 07/15- says he will try a new approach to his decision making; agrees to continue taking Clozaril.? Remains guarded, and with paranoid delusions 07/21 floridly psychotic with intense paranoid, persecutory delusions that are overwhelming patient into repeated unsafe thinking or behavior including suicide, and starvation and water deprivation.? Patient has no insight and does not believe that medications help at all; he goes back and forth about whether to take medications as he's very anxious about contradicting his persecutors whom he believes give him messages directing his behavior. 07/23 pt again decided to stop taking medications, a frequent decision emerging every few days as patient again feels that it's safer to listen to his p ersecutors (paranoid delusions) then it is to go against their edict and take medications. Over the past 2 weeks, only after lengthy discussions, would patient change his mind and go back to taking medications; however this reversion is not due to any moment of insight but rather a combination of em otional exhaustion and him trying to find a loophole in his persecutors edict to not take medications. -patient put in 3 day notice 07/24-07/28: sometimes withdrawn; sometimes agitated, yelling in anguished distress about being threatened by tormentors; intermittently taking medications 07/29 - rescinded 3 day notice -since then, he's agreed to take medications, though this is intermittent; takin g medications however does not represent improved insight or judgment, but as patient explains, is only done because he has for the moment not concluded that They, his torementors, have specifically barred him from doing so. This makes medication management difficult since he is on Clozaril which has a narrow window for which one can safely start/stop this med. om -He continues to intermittently stop Eating and drinking in obedience to paranoid delusion with idea that he should either commit suicide or undergo some other torture; remains without insight; remains anguished. He volunteers that he has received direction on how to kill himself post discharge and he in termittently has plans to kill himself on the unit, though he has thus far been able to limit his actions towards this end. Patient believes he receives messages through various avenues, having thoughts implanted in his head or communications given through media or circumstance. Patient reports he wants to trust this property underwriter and staff but is never sure whether or not property underwriter/staff is part of a conspiracy to torture him. on 08/08: Patient exhibited bizarre, generating movements of primarily his upper torso; property underwriter examined patient and this was not dystonia, akathisia and was not seizure activity but rather patient's own voluntary behavior done in obedience to direction from his imagined persecutor; pt later confirmed this. NMS ruled out -labs (afebrile, autonomic stable; LDH wnl; CPK elevated as expected). Clozapine induced myoclonus considered but again given patient's presentation and his own self reporting that these movements are guided by delusional thought, very unlikely. Patient told property underwriter that since medications are being given to treat a mental illness, which he does not believe he has, he will no longer take medications -08/10required IM medication, chemical restraint for wild in unsafe behavior, hitting his head against the wall unable to be redirected 08/11 more calm; body movements not present; can advance to q5 and off 1:1 for now (discussed with staff who agree). 08/18 -pt restarted on Clozapine (on 08/17) -calm on unit, but not willing to enage in talk therapy; mostly pacing halls during day -Bizarre body movements remain resolved? -patient's movements voluntary and done in obedience to delusion 08/23: Patient remains difficult to engage in is only superficially interactive with property underwriter which has been the case since a few days before court. Will con tinue to titrate Clozaril. pt denies med side-effects -pt agreed to Covid vaccination; he was not interested in hearing about risks/side-effects though property underwriter discussed anyway; he asked if he could get Flu vaccination and nursing will review to make sure he did not already get. ?Pt got Moderna X1 on 08/24/2108/26: no changes in med regimen, continue clozapine 08/27: Pt will continue on clozapine trial, which is being adjusted as tolerated for efficacy 08/28: Pt is redirectable, accepting treatment, will continue on clozapine trial for psychosis, SI -no change; politely refuses to engage; denies complaints and has no requests; mostly keeps to himself and often paces the hallways. 09/01 remains guarded; polite to property underwriter but unwilling to engage. pt has been watching TV and has at times looks like he's interacting with TV, smiling and nodding his head; will not discuss this with property underwriter. 09/02/21 and onward.... continue with current treatment no changes Barrier to discharge:? 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 [employer] reviewed case with Dr. Mcleod and other team members and it was discussed whether or not Dilshad needs a longer term hospitalization such as [facility]. Patient recently revealed that over the days/weeks prior to this admission, in addition to trying to starve/dehydrate himself to , he tried to kill himself 2x by Tylenol overdose, making property underwriter more aware of the extent of his unsafe behavior. Patient remains without any insight at all. He is fully overwhelmed by persecutory delusions. At this point it is becoming increasing difficult for property underwriter to imagine a scenario where Dilshad is safe outside of a longer term commitment where he is court ordered to take medications. For while he has indeed benefited from Clozapine (improved mood, relief from emotional anguish and reprieve from being contacted by persecutors [delusions]) his illness keeps him from attributing that benefit to medication; rather he maintains that medications are placebos and his relief is due to some other cause; and thus, on his own, patient's illness renders him unable to remain adherent with medications. However, if Dilshad had an extended hospital stay and remained on medications for an extended period of months, he may experience his relief from torture? as a product of medications and thus achieve enough insight to remain on medications as an outpatient. Team discussed and fully agrees that patient requires [facility] admission for his safety. PLAN: q5min checks (currently no unsafe behaviors) Court ordered involuntary commitment; court ordered substituted judgment/Euceda for medication CLOZARIL 150mg; will increase to 175MG Q.H.S (starting on 09/09/20)., will continue to titrate; START Clozarile 25mg AM (starting on 09/07/20) cannot refuse PO Clozaril; give IM Ziprasidone if refuses received Moderna X1 on 08/24/21 Ziprasidone 20mg IM if refuses Clozaril -Team agrees that patient requires maintenance worker house trailer admission and submitted application to [facility] -changed scheduled clonazepam 0.25 mg b.i.d. PRN for anxiety Micromedex: 1)?Rapid titration in hospitalized patients: Day 1, 50 mg orally followed by 50 to 100 mg as needed every 6 hours (up to an additional 150 mg). Thereafter, may increase daily dosage in increments of 50 to 100 mg. Mean dosage on day 1 was 207 mg/day in patients with prior clozapine exposure and 59.7 mg without prior exposure. Mean titration over 5.44 days to a dosage of 260 mg/day, lead to a mean dosage at discharge of 322 mg/day ?Sarika HEBERT, Peggy? A, Wagner? NG, et al: Rapid clozapine titration in patients with treatment refractory schizophrenia. Psychiatr Q 2016; 87(2):315-322. I spent minutes with the patient and/or on the patient floor today, greater than?50% of which was spent counseling/coordinating care. Reason for contiued inpatient stay Substantial Risk for: harm to self
[2021-09-08] MEDS: cloZAPine 25 MG TABLET PO (13:52)
[2021-09-08 17:20] VITALS: BP 130/86; PULSE 95
[2021-09-08] MEDS: cloZAPine 100 MG, cloZAPine 50 MG 150 MG PO (20:34)
[2021-09-09 06:00] VITALS: BP 109/70; PULSE 87; RESP 18; TEMP 36.1; O2SAT 95
[2021-09-09] MEDS: cloZAPine 25 MG TABLET PO (08:41)
--- NOTE | 2021-09-09 13:58 | HO.PSYCHPN ---
Subjective Subjective Date of Service: 09/09/21 Reason For Visit: Suicidal Interim History: Patient walking the halls. Says he does not want to talk about anything. Denies any medication side effects; denies any other complaints. Discussed clozapine dosing. Patient prefers to have clozapine all at p.m. dose however says a.m. dose does not really make him tired and agrees to have divided dosing just while titrating. Mental Status Exam Mental Status Exam Narrative: No change to metnal staus: pt is alert and oriented to self, time, and situation (though does not think he has mental illness); appearance a little unkempt but adequate hygiene; behavior is guarded, though calm, mostly keeping to himself and pacing hallways; minimal eye contact; mood is fine and affect is constricted; thought process is goal oriented; thought content is on [employer]; otherwise guarded but alluding to continued perseveration on paranoid, persecutory delusions about being tortured; denies SI though typically intermittent SI as fulfillment of task assigned to him by persecutors; patient believes he receives messages through various avenues, having thoughts implanted in his head or communications given through media. Denies [facility]. ?Patients insight and judgment are impaired Diagnostics Vital Signs (24Hr): Vital Signs - 24 hr 09/08/21 17:20 09/09/21 06:00 Temperature 96.9 F Pulse Rate 95 87 Respiratory Rate 18 Blood Pressure 130/86 109/70 Pulse Oximetry 95 Labs Results: 08/29/21 08:12 08/09/21 18:43 Medications Medications Current Medications Acetaminophen (Acetaminophen 325 Mg Tablet) 650 mg PO Q6H PRN PRN Reason: Pain, Mild (Pain Scale 1-3) Al Hydroxide/Mg Hydroxide (Magnesium Hydrox/Alum Hydrox 30 Ml Oral.Susp) 30 ml PO Q6H PRN PRN Reason: Heartburn/Nausea Calcium Carbonate (Calcium Carbonate 750 Mg Tab.Chew) 750 mg PO Q4H PRN PRN Reason: Indigestion Last Admin: 08/06/21 19:35 Dose: 750 mg Documented by: Clozapine (Clozapine 25 Mg Tablet) 25 mg PO DAILY FIDEL Last Admin: 09/09/21 08:41 Dose: 25 mg Documented by: Clozapine 100 mg/ Clozapine 75 (mg) 175 mg PO BEDTIME FIDEL Diphenhydramine HCl (Diphenhydramine Hcl 25 Mg Tablet) 50 mg PO Q4H PRN PRN Reason: agitation Last Admin: 07/26/21 09:00 Dose: 50 mg Documented by: Hydroxyzine HCl (Hydroxyzine Hcl 25 Mg Tablet) 25 mg PO BEDTIME PRN PRN Reason: Anxiety Last Admin: 08/04/21 21:07 Dose: 25 mg Documented by: Magnesium Hydroxide (Milk Of Magnesia 30 Ml Oral.Susp) 30 ml PO DAILY PRN PRN Reason: Constipation Nicotine Polacrilex (Nicotine Polacrilex 2 Mg Gum) 2 mg BUCCAL Q2H PRN PRN Reason: Nicotine Cravings Trazodone HCl (Trazodone Hcl 50 Mg Tablet) 50 mg PO BEDTIME PRN PRN Reason: Insomnia Ziprasidone (Ziprasidone 20 Mg Capsule) 20 mg PO TID PRN PRN Reason: agitation Ziprasidone (Ziprasidone Mesylate 20 Mg Vial) 20 mg IM BID PRN PRN Reason: on Euceda; if refuses PO Allergies Allergies Allergy/AdvReac Type Severity Reaction Status Date / Time olanzapine [OLANZAPINE] Allergy Severe FACIAL Verified 04/06/21 10:20 SWELLING Assessment & Plan Assessment & Plan (1) Schizoaffective disorder: Status: Chronic Code(s): F25.9 - Schizoaffective disorder, unspecified Assessment and Plan: started meds few days ago - tolerating so far- maybe calmer due to it still pretty shut down (2) Starvation ketoacidosis: Status: Resolved Code(s): E87.2 - Acidosis Assessment and Plan: denies current plan for this (3) PTSD (post-traumatic stress disorder): Status: Suspected Code(s): F43.10 - Post-traumatic stress disorder, unspecified Assessment and Plan: Impression: Patient is a 35-year-old male with history of schizophrenia, paranoid type who presents for paranoid, persecutory delusions, in the face of going off medications, prompting pt to attempt suicide by starvation and water deprivation. While trying to starve himself to , and just days before this admission, patient also attempted to kill himself by overdosing on Tylenol; when this did not work he tried again at a higher dose. Pt now presents to from medical floor where he required fluid resuscitation,?electrolytes replenished and treatment for starvation ketoacidosis, hypernatremia and acute kidney injury.? Pt now medically cleared and transferred to psychiatric unit. ?Patient was recently discharged from the unit around 05/13/2021. HOspital course: Patient currently suffers from severe paranoid persecutory delusions that frequently direct him to harm himself in order to save his family from future torture.? Patient has no insight.? Currently refuses medications and remains on Section 12 [address]. he says he does not necessarily want to leave the hospital, nor does he want to stay but does not want to sign a CV worried that it will be unacceptable to his persecutors. -patient remains in severe mental anguish over what is the right thing to do, very worried about making the wrong decision which will aggravate his persecutors and therefor put his family in future jeopardy; patient eventually decided to sign a CV but then later signed a 3 day notice.? He agreed to take Clozaril but then was again ambivalent.? Patient remains willing to self-harm to the point of suicide based on paranoid delusions that he must do so in order to save his family from future torment. -over the weekend patient was screaming, out of control and required medication restraint 07/11 patient remains with joel paranoid, persecutory delusions, thoughts to starve himself to based on paranoid delusion, no insight and impaired judgment. -currently he is eating and drinking but only minimally 07/12 pt decided to take Clozaril 07/13:? Patient is tormented seems to have reached a boiling point and he agreed to take Clozaril and sign in 07/15- says he will try a new approach to his decision making; agrees to continue taking Clozaril.? Remains guarded, and with paranoid delusions 07/21 floridly psychotic with intense paranoid, persecutory delusions that are overwhelming patient into repeated unsafe thinking or behavior including suicide, and starvation and water deprivation.? Patient has no insight and does not believe that medications help at all; he goes back and forth about whether to take medications as he's very anxious about contradicting his persecutors whom he believes give him messages directing his behavior. 07/23 pt again decided to stop taking medications, a frequent decision emerging every few days as patient again feels that it's safer to listen to his persecutors (paranoid delusions) then it is to go against their edict and take medications. Over the past 2 weeks, only after lengthy discussions, would patient change his mind and go back to taking medications; however this reversion is not due to any moment of insight but rather a combination of emotional exhaustion and him trying to find a loophole in his persecutors edict to not take medications. -patient put in 3 day notice 07/24-07/28: sometimes withdrawn; sometimes agitated, yelling in anguished distress about being threatened by tormentors; intermittently taking medications 07/29 - rescinded 3 day notice -since then, he's agreed to take medications, though this is intermittent; taking medications however does not represent improved insight or judgment, but as patient explains, is only done because he has for the moment not concluded that They, his torementors, have specifically barred him from doing so. This makes medication management difficult since he is on Clozaril which has a narrow window for which one can safely start/stop this med. om -He continues to intermittently stop Eating and drinking in obedience to paranoid delusion with idea that he should either commit suicide or undergo some other torture; remains without insight; remains anguished. He volunteers that he has received direction on how to kill himself post discharge and he intermittently has plans to kill himself on the unit, though he has thus far been able to limit his actions towards this end. Patient believes he receives messages through various avenues, having thoughts implanted in his head or communications given through media or circumstance. Patient reports he wants to trust this typewriter repairer and staff but is never sure whether or not typewriter repairer/staff is part of a conspiracy to torture him. on 08/08: Patient exhibited bizarre, generating movements of primarily his upper torso; typewriter repairer examined patient and this was not dystonia, akathisia and was not seizure activity but rather patient's own voluntary behavior done in obedience to direction from his imagined persecutor; pt later confirmed this. NMS ruled out -labs (afebrile, autonomic stable; LDH wnl; CPK elevated as expected). Clozapine induced myoclonus considered but again given patient's presentation and his own self reporting that these movements are guided by delusional thought, very unlikely. Patient told typewriter repairer that since medications are being given to treat a mental illness, which he does not believe he has, he will no longer take medications -08/10required IM medication, chemical restraint for wild in unsafe behavior, hitting his head against the wall unable to be redirected 08/11 more calm; body movements not present; can advance to q5 and off 1:1 for now (discussed with staff who agree). 08/18 -pt restarted on Clozapine (on 08/17) -calm on unit, but not willing to enage in talk therapy; mostly pacing halls during day -Bizarre body movements remain resolved? -patient's movements voluntary and done in obedience to delusion 08/23: Patient remains difficult to engage in is only superficially interactive with typewriter repairer which has been the case since a few days before court. Will continue to titrate Clozaril. pt denies med side-effects -pt agreed to Covid vaccination; he was not interested in hearing about risks/side-effects though typewriter repairer discussed anyway; he asked if he could get Flu vaccination and nursing will review to make sure he did not already get. ?Pt got Moderna X1 on 08/24/2108/26: no changes in med regimen, continue clozapine 08/27: Pt will continue on clozapine trial, which is being adjusted as tolerated for efficacy 08/28: Pt is redirectable, accepting treatment, will continue on clozapine trial for psychosis, SI -no change; politely refuses to engage; denies complaints and has no requests; mostly keeps to himself and often paces the hallways. 09/01 remains guarded; polite to typewriter repairer but unwilling to engage. pt has been watching TV and has at times looks like he's interacting with TV, smiling and nodding his head; will not discuss this with typewriter repairer. 09/02/21 and onward.... continue with current treatment no changes 09/09/21 patient remains unwilling to engage with staff or this typewriter repairer refusing to discuss psychiatric symptoms and saying he does not want to talk. He was however willing to tell typewriter repairer that nothing has changed that regarding feeling persecuted but would not go into any further details other than to say he was safe and had no thoughts of hurting himself while on the unit. Patient continues to report he tolerating medication and denies any side effects. He has no complaints and no requests other than to find out when he will be going to [facility]. Barrier to discharge:? Patient is floridly psychotic; he has no insight and currently suffers from paranoid, persecutory delusions, believing he needs to either kill himself or engage in behaviors that will result in , in order to fulfill his persecutors demands; if discharged before stable, patient will quickly decompensate and be at high risk for suicide; he requires locked unit, and likely a watermelon harvesting supervisor admission, to resolve symptoms with medication management.?[facility] application submitted:? Sharepoint Application Architect reviewed case with Dr. Mcleod and other team members and it was discussed whether or not Dilshad needs a longer term hospitalization such as [facility]. Patient recently revealed that over the days/weeks prior to this admission, in addition to trying to starve/dehydrate himself to , he tried to kill himself 2x by Tylenol overdose, making typewriter repairer more aware of the extent of his unsafe behavior. Patient remains without any insight at all. He is fully overwhelmed by persecutory delusions. At this point it is becoming increasing difficult for typewriter repairer to imagine a scenario where Dilshad is safe outside of a longer term commitment where he is court ordered to take medications. For while he has indeed benefited from Clozapine (improved mood, relief from emotional anguish and reprieve from being contacted by persecutors [delusions]) his illness keeps him from attributing that benefit to medication; rather he maintains that medications are placebos and his relief is due to some other cause; and thus, on his own, patient's illness renders him unable to remain adherent with medications. However, if Dilshad had an extended hospital stay and remained on medications for an extended period of months, he may experience his relief from torture? as a product of medications and thus achieve enough insight to remain on medications as an outpatient. Team discussed and fully agrees that patient requires [facility] admission for his safety. PLAN: will get EKG on sunday to monitor QTc q5min checks (currently no unsafe behaviors) Court ordered involuntary commitment; court ordered substituted judgment/Euceda for medication CLOZARIL 175mg; (starting on 09/09/20)., will continue to titrate; Clozarile 25mg AM (starting on 09/07/20) -weekly CBC w/ diff -cannot refuse PO Clozaril; give IM Ziprasidone if refuses received Moderna X1 on 08/24/21 next dose pending Ziprasidone 20mg IM if refuses Clozaril -Team agrees that patient requires watermelon harvesting supervisor admission and submitted application to [facility] -changed scheduled clonazepam 0.25 mg b.i.d. PRN for anxiety Micromedex: 1)?Rapid titration in hospitalized patients: Day 1, 50 mg orally followed by 50 to 100 mg as needed every 6 hours (up to an additional 150 mg). Thereafter, may increase daily dosage in increments of 50 to 100 mg. Mean dosage on day 1 was 207 mg/day in patients with prior clozapine exposure and 59.7 mg without prior exposure. Mean titration over 5.44 days to a dosage of 260 mg/day, lead to a mean dosage at discharge of 322 mg/day ?Poyraz CA, Peggy? A, [place]? NG, et al: Rapid clozapine titration in patients with treatment refractory schizophrenia. Psychiatr Q 2016; 87(2):315-322. I spent minutes with the patient and/or on the patient floor today, greater than?50% of which was spent counseling/coordinating care. Reason for contiued inpatient stay Substantial Risk for: harm to self
[2021-09-09 18:00] VITALS: BP 136/85; PULSE 88; RESP 16; TEMP 36.1
[2021-09-09] MEDS: cloZAPine 100 MG, cloZAPine 75 MG 175 MG PO (20:37)
[2021-09-10 06:40] VITALS: BP 116/79; PULSE 87; TEMP 36.7
[2021-09-10] MEDS: cloZAPine 25 MG TABLET PO (08:28)
--- NOTE | 2021-09-10 13:53 | HO.PSYCHPN ---
Subjective Subjective Date of Service: 09/10/21 Reason For Visit: Suicidal Subjective Notes: Section 8 Interim History: Pt requested to speak with vocational instructor provider. He reports he had OD with tylenol and worried about his kidney and liver function. Pt reassured it is probably fine but will order labs given that on admission they were okay. He also asks for HIV testing. Pt reports eating and sleeping well. He denies SI/HI. He denies hearing voices, does seem less distressed, calmer. anxious about getting lab results. No behavioral concerns. Review of Systems Review of Systems Yes all other systems are reviewed and are negative Constitutional: Denies frequent falls Reports behavioral changes, Reports confusion, Denies frequent falls and Reports memory loss Psychiatric: Reports anxiety, Reports behavioral changes, Reports confusion, Reports difficulty concentrating, Reports auditory hallucinations, Reports irritability, Reports anhedonia, Reports memory loss, Reports paranoia and Reports visual hallucinations Mental Status Exam Mental Status Exam Narrative: No change to metnal staus: pt is alert and oriented to self, time, and situation (though does not think he has mental illness); casually groomed, adequate hygiene; behavior is mildly guarded, though calm; minimal eye contact; mood is fine and affect is constricted; thought process is goal oriented; thought content is on [facility]; otherwise guarded but alluding to continued perseveration on paranoid, persecutory delusions about being tortured; denies SI though typically intermittent SI as fulfillment of task assigned to him by persecutors; patient believes he receives messages through various avenues, having thoughts implanted in his head or communications given through media. Denies AvH. ?Patients insight and judgment are impaired Diagnostics Vital Signs (24Hr): Vital Signs - 24 hr 09/10/21 19:25 09/11/21 06:00 Temperature 97.8 F 96.8 F Pulse Rate 87 87 Respiratory Rate 16 Blood Pressure 117/72 115/73 Pulse Oximetry 97 96 Labs Results: 08/29/21 08:12 09/10/21 15:24 Labs: Laboratory Results - last 48 hr 09/10/21 15:24 Sodium 143 Potassium 3.9 Chloride 104 Carbon Dioxide 32 H Anion Gap 11 L BUN 12 Creatinine 0.81 Estim Creat Clear Calc TNP Estimated GFR > 60 Random Glucose 121 H D Calcium 9.6 Total Bilirubin 0.4 AST 16 ALT 23 Alkaline Phosphatase 78 Total Protein 7.0 Albumin 4.1 Medications Medications Current Medications Acetaminophen (Acetaminophen 325 Mg Tablet) 650 mg PO Q6H PRN PRN Reason: Pain, Mild (Pain Scale 1-3) Al Hydroxide/Mg Hydroxide (Magnesium Hydrox/Alum Hydrox 30 Ml Oral.Susp) 30 ml PO Q6H PRN PRN Reason: Heartburn/Nausea Calcium Carbonate (Calcium Carbonate 750 Mg Tab.Chew) 750 mg PO Q4H PRN PRN Reason: Indigestion Last Admin: 08/06/21 19:35 Dose: 750 mg Documented by: Clozapine (Clozapine 25 Mg Tablet) 25 mg PO DAILY [facility] Last Admin: 09/11/21 08:40 Dose: 25 mg Documented by: Clozapine 100 mg/ Clozapine 75 (mg) 175 mg PO BEDTIME [facility] Last Admin: 09/10/21 20:30 Dose: 175 mg Documented by: Diphenhydramine HCl (Diphenhydramine Hcl 25 Mg Tablet) 50 mg PO Q4H PRN PRN Reason: agitation Last Admin: 07/26/21 09:00 Dose: 50 mg Documented by: Hydroxyzine HCl (Hydroxyzine Hcl 25 Mg Tablet) 25 mg PO BEDTIME PRN PRN Reason: Anxiety Last Admin: 08/04/21 21:07 Dose: 25 mg Documented by: Magnesium Hydroxide (Milk Of Magnesia 30 Ml Oral.Susp) 30 ml PO DAILY PRN PRN Reason: Constipation Nicotine Polacrilex (Nicotine Polacrilex 2 Mg Gum) 2 mg BUCCAL Q2H PRN PRN Reason: Nicotine Cravings Trazodone HCl (Trazodone Hcl 50 Mg Tablet) 50 mg PO BEDTIME PRN PRN Reason: Insomnia Ziprasidone (Ziprasidone 20 Mg Capsule) 20 mg PO TID PRN PRN Reason: agitation Ziprasidone (Ziprasidone Mesylate 20 Mg Vial) 20 mg IM BID PRN PRN Reason: on Euceda; if refuses PO Allergies Allergies Allergy/AdvReac Type Severity Reaction Status Date / Time olanzapine [OLANZAPINE] Allergy Severe FACIAL Verified 04/06/21 10:20 SWELLING Assessment & Plan Assessment & Plan (1) Schizoaffective disorder: Status: Chronic Code(s): F25.9 - Schizoaffective disorder, unspecified Assessment and Plan: started meds few days ago - tolerating so far- maybe calmer due to it still pretty shut down (2) Starvation ketoacidosis: Status: Resolved Code(s): E87.2 - Acidosis Assessment and Plan: denies current plan for this (3) PTSD (post-traumatic stress disorder): Status: Suspected Code(s): F43.10 - Post-traumatic stress disorder, unspecified Assessment and Plan: Impression: Patient is a 35-year-old male with history of schizophrenia, paranoid type who presents for paranoid, persecutory delusions, in the face of going off medications, prompting pt to attempt suicide by starvation and water deprivation. While trying to starve himself to , and just days before this admission, patient also attempted to kill himself by overdosing on Tylenol; when this did not work he tried again at a higher dose. Pt now presents to from medical floor where he required fluid resuscitation,?electrolytes replenished and treatment for starvation ketoacidosis, hypernatremia and acute kidney injury.? Pt now medically cleared and transferred to psychiatric unit. ?Patient was recently discharged from the unit around 05/13/2021. HOspital course: Patient currently suffers from severe paranoid persecutory delusions that frequently direct him to harm himself in order to save his family from future torture.? Patient has no insight.? Currently refuses medications and remains on Section 12 B. he says he does not necessarily want to leave the hospital, nor does he want to stay but does not want to sign a CV worried that it will be unacceptable to his persecutors. -patient remains in severe mental anguish over what is the right thing to do, very worried about making the wrong decision which will aggravate his persecutors and therefor put his family in future jeopardy; patient eventually decided to sign a CV but then later signed a 3 day notice.? He agreed to take Clozaril but then was again ambivalent.? Patient remains willing to self-harm to the point of suicide based on paranoid delusions that he must do so in order to save his family from future torment. -over the weekend patient was screaming, out of control and required medication restraint 07/11 patient remains with joel paranoid, persecutory delusions, thoughts to starve himself to based on paranoid delusion, no insight and impaired judgment. -currently he is eating and drinking but only minimally 07/12 pt decided to take Clozaril 07/13:? Patient is tormented seems to have reached a boiling point and he agreed to take Clozaril and sign in 07/15- says he will try a new approach to his decision making; agrees to continue taking Clozaril.? Remains guarded, and with paranoid delusions 07/21 floridly psychotic with intense paranoid, persecutory delusions that are overwhelming patient into repeated unsafe thinking or behavior including suicide, and starvation and water deprivation.? Patient has no insight and does not believe that medications help at all; he goes back and forth about whether to take medications as he's very anxious about contradicting his persecutors whom he believes give him messages directing his behavior. 07/23 pt again decided to stop taking medications, a frequent decision emerging every few days as patient again feels that it's safer to listen to his persecutors (paranoid delusions) then it is to go against their edict and take medications. Over the past 2 weeks, only after lengthy discussions, would patient change his mind and go back to taking medications; however this reversion is not due to any moment of insight but rather a combination of emotional exhaustion and him trying to find a loophole in his persecutors edict to not take medications. -patient put in 3 day notice 07/24-07/28: sometimes withdrawn; sometimes agitated, yelling in anguished distress about being threatened by tormentors; intermittently taking medications 07/29 - rescinded 3 day notice -since then, he's agreed to take medications, though this is intermittent; taking medications however does not represent improved insight or judgment, but as patient explains, is only done because he has for the moment not concluded that They, his torementors, have specifically barred him from doing so. This makes medication management difficult since he is on Clozaril which has a narrow window for which one can safely start/stop this med. om -He continues to intermittently stop Eating and drinking in obedience to paranoid delusion with idea that he should either commit suicide or undergo some other torture; remains without insight; remains anguished. He volunteers that he has received direction on how to kill himself post discharge and he intermittently has plans to kill himself on the unit, though he has thus far been able to limit his actions towards this end. Patient believes he receives messages through various avenues, having thoughts implanted in his head or communications given through media or circumstance. Patient reports he wants to trust this typewriter assembler and staff but is never sure whether or not typewriter assembler/staff is part of a conspiracy to torture him. on 08/08: Patient exhibited bizarre, generating movements of primarily his upper torso; typewriter assembler examined patient and this was not dystonia, akathisia and was not seizure activity but rather patient's own voluntary behavior done in obedience to direction from his imagined persecutor; pt later confirmed this. NMS ruled out -labs (afebrile, autonomic stable; LDH wnl; CPK elevated as expected). Clozapine induced myoclonus considered but again given patient's presentation and his own self reporting that these movements are guided by delusional thought, very unlikely. Patient told typewriter assembler that since medications are being given to treat a mental illness, which he does not believe he has, he will no longer take medications -08/10required IM medication, chemical restraint for wild in unsafe behavior, hitting his head against the wall unable to be redirected 08/11 more calm; body movements not present; can advance to q5 and off 1:1 for now (discussed with staff who agree). 08/18 -pt restarted on Clozapine (on 08/17) -calm on unit, but not willing to enage in talk therapy; mostly pacing halls during day -Bizarre body movements remain resolved? -patient's movements voluntary and done in obedience to delusion 08/23: Patient remains difficult to engage in is only superficially interactive with typewriter assembler which has been the case since a few days before court. Will continue to titrate Clozaril. pt denies med side-effects -pt agreed to Covid vaccination; he was not interested in hearing about risks/side-effects though typewriter assembler discussed anyway; he asked if he could get Flu vaccination and nursing will review to make sure he did not already get. ?Pt got Moderna X1 on 08/24/2108/26: no changes in med regimen, continue clozapine 08/27: Pt will continue on clozapine trial, which is being adjusted as tolerated for efficacy 08/28: Pt is redirectable, accepting treatment, will continue on clozapine trial for psychosis, SI -no change; politely refuses to engage; denies complaints and has no requests; mostly keeps to himself and often paces the hallways. 09/01 remains guarded; polite to typewriter assembler but unwilling to engage. pt has been watching TV and has at times looks like he's interacting with TV, smiling and nodding his head; will not discuss this with typewriter assembler. 09/02/21 and onward.... continue with current treatment no changes 09/09/21 patient remains unwilling to engage with staff or this typewriter assembler refusing to discuss psychiatric symptoms and saying he does not want to talk. He was however willing to tell typewriter assembler that nothing has changed that regarding feeling persecuted but would not go into any further details other than to say he was safe and had no thoughts of hurting himself while on the unit. Patient continues to report he tolerating medication and denies any side effects. He has no complaints and no requests other than to find out when he will be going to [facility]. Barrier to discharge:? Patient is floridly psychotic; he has no insight and currently suffers from paranoid, persecutory delusions, believing he needs to either kill himself or engage in behaviors that will result in , in order to fulfill his persecutors demands; if discharged before stable, patient will quickly decompensate and be at high risk for suicide; he requires locked unit, and likely a terminal carman admission, to resolve symptoms with medication management.?[facility] application submitted:? Fixture Repairer Fabricator reviewed case with Dr. Mcleod and other team members and it was discussed whether or not Dilshad needs a longer term hospitalization such as [facility]. Patient recently revealed that over the days/weeks prior to this admission, in addition to trying to starve/dehydrate himself to , he tried to kill himself 2x by Tylenol overdose, making typewriter assembler more aware of the extent of his unsafe behavior. Patient remains without any insight at all. He is fully overwhelmed by persecutory delusions. At this point it is becoming increasing difficult for typewriter assembler to imagine a scenario where Dilshad is safe outside of a longer term commitment where he is court ordered to take medications. For while he has indeed benefited from Clozapine (improved mood, relief from emotional anguish and reprieve from being contacted by persecutors [delusions]) his illness keeps him from attributing that benefit to medication; rather he maintains that medications are placebos and his relief is due to some other cause; and thus, on his own, patient's illness renders him unable to remain adherent with medications. However, if Dilshad had an extended hospital stay and remained on medications for an extended period of months, he may experience his relief from torture? as a product of medications and thus achieve enough insight to remain on medications as an outpatient. Team discussed and fully agrees that patient requires [facility] admission for his safety. PLAN: will get EKG on sunday to monitor QTc q5min checks (currently no unsafe behaviors) Court ordered involuntary commitment; court ordered substituted judgment/Euceda for medication CLOZARIL 175mg; (starting on 09/09/20)., will continue to titrate; Clozarile 25mg AM (starting on 09/07/20) -weekly CBC w/ diff -cannot refuse PO Clozaril; give IM Ziprasidone if refuses received Moderna X1 on 08/24/21 next dose pending Ziprasidone 20mg IM if refuses Clozaril -Team agrees that patient requires [facility] and submitted application to [facility] -changed scheduled clonazepam 0.25 mg b.i.d. PRN for anxiety Micromedex: 1)?Rapid titration in hospitalized patients: Day 1, 50 mg orally followed by 50 to 100 mg as needed every 6 hours (up to an additional 150 mg). Thereafter, may increase daily dosage in increments of 50 to 100 mg. Mean dosage on day 1 was 207 mg/day in patients with prior clozapine exposure and 59.7 mg without prior exposure. Mean titration over 5.44 days to a dosage of 260 mg/day, lead to a mean dosage at discharge of 322 mg/day ?Poyraz CA, Peggy? A, Saglam? NG, et al: Rapid clozapine titration in patients with treatment refractory schizophrenia. Psychiatr Q 2016; 87(2):315-322. I spent minutes with the patient and/or on the patient floor today, greater than?50% of which was spent counseling/coordinating care. Reason for contiued inpatient stay Substantial Risk for: inability to function
[2021-09-10 15:51] LABS: Alanine Aminotransferase 23 U/L (0-40); Albumin Level 4.1 g/dL (3.5-5.0); Alkaline Phosphatase 78 U/L (39-117); Anion Gap 11 (12-20); Aspartate Amino Transferase 16 U/L (5-37); Bilirubin Total 0.4 mg/dL (0.0-1.0); Blood Urea Nitrogen 12 mg/dL (9-16); Calcium 9.6 mg/dL (8.4-10.2); Carbon Dioxide 32 mmol/L (22-29); Chloride 104 mmol/L (96-108); Estimated Glomerular Filt Rate > 60; Glucose Random 121 mg/dL (60-115); Potassium 3.9 mmol/L (3.3-5.1); Sodium 143 mmol/L (135-145)
[2021-09-10 19:25] VITALS: BP 117/72; PULSE 87; RESP 16; TEMP 36.6; O2SAT 97
[2021-09-10] MEDS: cloZAPine 100 MG, cloZAPine 75 MG 175 MG PO (20:30)
[2021-09-11 06:00] VITALS: BP 115/73; PULSE 87; TEMP 36; O2SAT 96
[2021-09-11] MEDS: cloZAPine 25 MG TABLET PO (08:40)
--- NOTE | 2021-09-11 12:56 | HO.PSYCHPN ---
Subjective Subjective Date of Service: 09/11/21 Reason For Visit: Suicidal Subjective Notes: Conditional Voluntary Interim History: Pt in his room. He was given results of CMP- wnl. Pt denies any physical complaint. HIV testing results pending. Pt reports eating and sleeping well. He denies SI/HI. He denies hearing voices, does seem less distressed, calmer. No behavioral concerns. Medication Compliance: Yes Side effects from medications: No Review of Systems Review of Systems Yes all other systems are reviewed and are negative Constitutional: Denies frequent falls Reports behavioral changes, Reports confusion, Denies frequent falls and Reports memory loss Psychiatric: Reports anxiety, Reports behavioral changes, Reports confusion, Reports difficulty concentrating, Reports auditory hallucinations, Reports irritability, Reports anhedonia, Reports memory loss, Reports paranoia and Reports visual hallucinations Mental Status Exam Mental Status Exam Narrative: No change to metnal staus: pt is alert and oriented to self, time, and situation (though does not think he has mental illness); casually groomed, adequate hygiene; behavior is mildly guarded, though calm; minimal eye contact; mood is fine and affect is constricted; thought process is goal oriented; thought content is on [facility]; otherwise guarded but alluding to continued perseveration on paranoid, persecutory delusions about being tortured; denies SI though typically intermittent SI as fulfillment of task assigned to him by persecutors; patient believes he receives messages through various avenues, having thoughts implanted in his head or communications given through media. Denies AvH. ?Patients insight and judgment are impaired Diagnostics Vital Signs (24Hr): Vital Signs - 24 hr 09/10/21 19:25 09/11/21 06:00 Temperature 97.8 F 96.8 F Pulse Rate 87 87 Respiratory Rate 16 Blood Pressure 117/72 115/73 Pulse Oximetry 97 96 Labs Results: 08/29/21 08:12 09/10/21 15:24 Labs: Laboratory Results - last 48 hr 09/10/21 15:24 Sodium 143 Potassium 3.9 Chloride 104 Carbon Dioxide 32 H Anion Gap 11 L BUN 12 Creatinine 0.81 Estim Creat Clear Calc TNP Estimated GFR > 60 Random Glucose 121 H D Calcium 9.6 Total Bilirubin 0.4 AST 16 ALT 23 Alkaline Phosphatase 78 Total Protein 7.0 Albumin 4.1 Medications Medications Current Medications Acetaminophen (Acetaminophen 325 Mg Tablet) 650 mg PO Q6H PRN PRN Reason: Pain, Mild (Pain Scale 1-3) Al Hydroxide/Mg Hydroxide (Magnesium Hydrox/Alum Hydrox 30 Ml Oral.Susp) 30 ml PO Q6H PRN PRN Reason: Heartburn/Nausea Calcium Carbonate (Calcium Carbonate 750 Mg Tab.Chew) 750 mg PO Q4H PRN PRN Reason: Indigestion Last Admin: 08/06/21 19:35 Dose: 750 mg Documented by: Clozapine (Clozapine 25 Mg Tablet) 25 mg PO DAILY [facility] Last Admin: 09/11/21 08:40 Dose: 25 mg Documented by: Clozapine 100 mg/ Clozapine 75 (mg) 175 mg PO BEDTIME FIDEL Last Admin: 09/10/21 20:30 Dose: 175 mg Documented by: Diphenhydramine HCl (Diphenhydramine Hcl 25 Mg Tablet) 50 mg PO Q4H PRN PRN Reason: agitation Last Admin: 07/26/21 09:00 Dose: 50 mg Documented by: Hydroxyzine HCl (Hydroxyzine Hcl 25 Mg Tablet) 25 mg PO BEDTIME PRN PRN Reason: Anxiety Last Admin: 08/04/21 21:07 Dose: 25 mg Documented by: Magnesium Hydroxide (Milk Of Magnesia 30 Ml Oral.Susp) 30 ml PO DAILY PRN PRN Reason: Constipation Nicotine Polacrilex (Nicotine Polacrilex 2 Mg Gum) 2 mg BUCCAL Q2H PRN PRN Reason: Nicotine Cravings Trazodone HCl (Trazodone Hcl 50 Mg Tablet) 50 mg PO BEDTIME PRN PRN Reason: Insomnia Ziprasidone (Ziprasidone 20 Mg Capsule) 20 mg PO TID PRN PRN Reason: agitation Ziprasidone (Ziprasidone Mesylate 20 Mg Vial) 20 mg IM BID PRN PRN Reason: on Euceda; if refuses PO Allergies Allergies Allergy/AdvReac Type Severity Reaction Status Date / Time olanzapine [OLANZAPINE] Allergy Severe FACIAL Verified 04/06/21 10:20 SWELLING Assessment & Plan Assessment & Plan (1) Schizoaffective disorder: Status: Chronic Code(s): F25.9 - Schizoaffective disorder, unspecified Assessment and Plan: started meds few days ago - tolerating so far- maybe calmer due to it still pretty shut down (2) Starvation ketoacidosis: Status: Resolved Code(s): E87.2 - Acidosis Assessment and Plan: denies current plan for this (3) PTSD (post-traumatic stress disorder): Status: Suspected Code(s): F43.10 - Post-traumatic stress disorder, unspecified Assessment and Plan: Impression: Patient is a 35-year-old male with history of schizophrenia, paranoid type who presents for paranoid, persecutory delusions, in the face of going off medications, prompting pt to attempt suicide by starvation and water deprivation. While trying to starve himself to , and just days before this admission, patient also attempted to kill himself by overdosing on Tylenol; when this did not work he tried again at a higher dose. Pt now presents to M5 from medical floor where he required fluid resuscitation,?electrolytes replenished and treatment for starvation ketoacidosis, hypernatremia and acute kidney injury.? Pt now medically cleared and transferred to psychiatric unit. ?Patient was recently discharged from the unit around 05/13/2021. HOspital course: Patient currently suffers from severe paranoid persecutory delusions that frequently direct him to harm himself in order to save his family from future torture.? Patient has no insight.? Currently refuses medications and remains on Section 12 B. he says he does not necessarily want to leave the hospital, nor does he want to stay but does not want to sign a CV worried that it will be unacceptable to his persecutors. -patient remains in severe mental anguish over what is the right thing to do, very worried about making the wrong decision which will aggravate his persecutors and therefor put his family in future jeopardy; patient eventually decided to sign a CV but then later signed a 3 day notice.? He agreed to take Clozaril but then was again ambivalent.? Patient remains willing to self-harm to the point of suicide based on paranoid delusions that he must do so in order to save his family from future torment. -over the weekend patient was screaming, out of control and required medication restraint 07/11 patient remains with joel paranoid, persecutory delusions, thoughts to starve himself to based on paranoid delusion, no insight and impaired judgment. -currently he is eating and drinking but only minimally 07/12 pt decided to take Clozaril 07/13:? Patient is tormented seems to have reached a boiling point and he agreed to take Clozaril and sign in 07/15- says he will try a new approach to his decision making; agrees to continue taking Clozaril.? Remains guarded, and with paranoid delusions 07/21 floridly psychotic with intense paranoid, persecutory delusions that are overwhelming patient into repeated unsafe thinking or behavior including suicide, and starvation and water deprivation.? Patient has no insight and does not believe that medications help at all; he goes back and forth about whether to take medications as he's very anxious about contradicting his persecutors whom he believes give him messages directing his behavior. 07/23 pt again decided to stop taking medications, a frequent decision emerging every few days as patient again feels that it's safer to listen to his persecutors (paranoid delusions) then it is to go against their edict and take medications. Over the past 2 weeks, only after lengthy discussions, would patient change his mind and go back to taking medications; however this reversion is not due to any moment of insight but rather a combination of emotional exhaustion and him trying to find a loophole in his persecutors edict to not take medications. -patient put in 3 day notice 07/24-07/28: sometimes withdrawn; sometimes agitated, yelling in anguished distress about being threatened by tormentors; intermittently taking medications 07/29 - rescinded 3 day notice -since then, he's agreed to take medications, though this is intermittent; taking medications however does not represent improved insight or judgment, but as patient explains, is only done because he has for the moment not concluded that They, his torementors, have specifically barred him from doing so. This makes medication management difficult since he is on Clozaril which has a narrow window for which one can safely start/stop this med. om -He continues to intermittently stop Eating and drinking in obedience to paranoid delusion with idea that he should either commit suicide or undergo some other torture; remains without insight; remains anguished. He volunteers that he has received direction on how to kill himself post discharge and he intermittently has plans to kill himself on the unit, though he has thus far been able to limit his actions towards this end. Patient believes he receives messages through various avenues, having thoughts implanted in his head or communications given through media or circumstance. Patient reports he wants to trust this instructional writer and staff but is never sure whether or not instructional writer/staff is part of a conspiracy to torture him. on 08/08: Patient exhibited bizarre, generating movements of primarily his upper torso; instructional writer examined patient and this was not dystonia, akathisia and was not seizure activity but rather patient's own voluntary behavior done in obedience to direction from his imagined persecutor; pt later confirmed this. NMS ruled out -labs (afebrile, autonomic stable; LDH wnl; CPK elevated as expected). Clozapine induced myoclonus considered but again given patient's presentation and his own self reporting that these movements are guided by delusional thought, very unlikely. Patient told instructional writer that since medications are being given to treat a mental illness, which he does not believe he has, he will no longer take medications -08/10required IM medication, chemical restraint for wild in unsafe behavior, hitting his head against the wall unable to be redirected 08/11 more calm; body movements not present; can advance to q5 and off 1:1 for now (discussed with staff who agree). 08/18 -pt restarted on Clozapine (on 08/17) -calm on unit, but not willing to enage in talk therapy; mostly pacing halls during day -Bizarre body movements remain resolved? -patient's movements voluntary and done in obedience to delusion 08/23: Patient remains difficult to engage in is only superficially interactive with instructional writer which has been the case since a few days before court. Will continue to titrate Clozaril. pt denies med side-effects -pt agreed to Covid vaccination; he was not interested in hearing about risks/side-effects though instructional writer discussed anyway; he asked if he could get Flu vaccination and nursing will review to make sure he did not already get. ?Pt got Moderna X1 on 08/24/2108/26: no changes in med regimen, continue clozapine 08/27: Pt will continue on clozapine trial, which is being adjusted as tolerated for efficacy 08/28: Pt is redirectable, accepting treatment, will continue on clozapine trial for psychosis, SI -no change; politely refuses to engage; denies complaints and has no requests; mostly keeps to himself and often paces the hallways. 09/01 remains guarded; polite to instructional writer but unwilling to engage. pt has been watching TV and has at times looks like he's interacting with TV, smiling and nodding his head; will not discuss this with instructional writer. 09/02/21 and onward.... continue with current treatment no changes 09/09/21 patient remains unwilling to engage with staff or this instructional writer refusing to discuss psychiatric symptoms and saying he does not want to talk. He was however willing to tell instructional writer that nothing has changed that regarding feeling persecuted but would not go into any further details other than to say he was safe and had no thoughts of hurting himself while on the unit. Patient continues to report he tolerating medication and denies any side effects. He has no complaints and no requests other than to find out when he will be going to [facility]. Barrier to discharge:? Patient is floridly psychotic; he has no insight and currently suffers from paranoid, persecutory delusions, believing he needs to either kill himself or engage in behaviors that will result in , in order to fulfill his persecutors demands; if discharged before stable, patient will quickly decompensate and be at high risk for suicide; he requires locked unit, and likely a content analyst admission, to resolve symptoms with medication management.?[facility] application submitted:? Tv Technician reviewed case with Dr. Mcleod and other team members and it was discussed whether or not Dilshad needs a longer term hospitalization such as [facility]. Patient recently revealed that over the days/weeks prior to this admission, in addition to trying to starve/dehydrate himself to , he tried to kill himself 2x by Tylenol overdose, making instructional writer more aware of the extent of his unsafe behavior. Patient remains without any insight at all. He is fully overwhelmed by persecutory delusions. At this point it is becoming increasing difficult for instructional writer to imagine a scenario where Dilshad is safe outside of a longer term commitment where he is court ordered to take medications. For while he has indeed benefited from Clozapine (improved mood, relief from emotional anguish and reprieve from being contacted by persecutors [delusions]) his illness keeps him from attributing that benefit to medication; rather he maintains that medications are placebos and his relief is due to some other cause; and thus, on his own, patient's illness renders him unable to remain adherent with medications. However, if Dilshad had an extended hospital stay and remained on medications for an extended period of months, he may experience his relief from torture? as a product of medications and thus achieve enough insight to remain on medications as an outpatient. Team discussed and fully agrees that patient requires [facility] admission for his safety. PLAN: will get EKG on sunday to monitor QTc q5min checks (currently no unsafe behaviors) Court ordered involuntary commitment; court ordered substituted judgment/Euceda for medication CLOZARIL 175mg; (starting on 09/09/20)., will continue to titrate; Clozarile 25mg AM (starting on 09/07/20) -weekly CBC w/ diff -cannot refuse PO Clozaril; give IM Ziprasidone if refuses received Moderna X1 on 08/24/21 next dose pending Ziprasidone 20mg IM if refuses Clozaril -Team agrees that patient requires [facility] admission and submitted application to [facility] -changed scheduled clonazepam 0.25 mg b.i.d. PRN for anxiety Micromedex: 1)?Rapid titration in hospitalized patients: Day 1, 50 mg orally followed by 50 to 100 mg as needed every 6 hours (up to an additional 150 mg). Thereafter, may increase daily dosage in increments of 50 to 100 mg. Mean dosage on day 1 was 207 mg/day in patients with prior clozapine exposure and 59.7 mg without prior exposure. Mean titration over 5.44 days to a dosage of 260 mg/day, lead to a mean dosage at discharge of 322 mg/day ?Sarika HEBERT, Peggy? A, Sagrolo? NG, et al: Rapid clozapine titration in patients with treatment refractory schizophrenia. Psychiatr Q 2016; 87(2):315-322. I spent minutes with the patient and/or on the patient floor today, greater than?50% of which was spent counseling/coordinating care. Reason for contiued inpatient stay Substantial Risk for: inability to function
[2021-09-11 18:45] VITALS: BP 119/72; PULSE 93; RESP 16; TEMP 36.3; O2SAT 96
[2021-09-11] MEDS: cloZAPine 100 MG, cloZAPine 75 MG 175 MG PO (20:05)
[2021-09-12 08:08] LABS: HIV AB/AG Nonreactive (Nonreactive)
[2021-09-12] MEDS: cloZAPine 25 MG TABLET PO (08:22)
[2021-09-12 08:31] LABS: MANUAL DIFF FLAG NO
[2021-09-12 08:35] LABS: Basophils Percent Auto 0.5 % (0-2); Eosinophils Absolute Auto 0.4 X10*3/uL (0.0-0.4); Eosinophils Percent Auto 4.9 % (0-4); Hematocrit 42.8 % (42.0-52.0); Hemoglobin 14.6 g/dl (14.0-18.0); Imm Gran Abs Auto 0.03 X10*3/uL (0.00-0.03); Imm Gran Pct Auto 0.4 % (0.0-0.4); Lymphocytes Absolute Auto 1.7 X10*3/uL (1.2-4.9); Lymphocytes Percent Auto 20.1 % (20-40); Mean Corpuscular HGB Conc 34.1 g/dl (31.0-36.0); Mean Corpuscular Volume 87.9 fL (80.0-98.0); Mean Platelet Volume 10.1 fL (9.4-12.4); Monocytes Absolute Auto 0.8 X10*3/uL (0.1-1.2); Monocytes Percent Auto 9.2 % (2-11); Neutrophils Absolute Auto 5.5 x10*3/uL (2.0-8.3); Neutrophils Percent Auto 64.9 % (45-73); Platelet Count 210 X10*3/uL (160-400); Red Blood Count 4.87 X10*6/uL (4.60-5.80); Red Cell Distribution Width 12.7 % (11.0-16.0); White Blood Count 8.4 X10*3/uL (4.8-10.8)
[2021-09-12 08:36] LABS: Neut%MD 64.2 %; Neutrophils Absolute Auto 5.3 x10*3/uL (2.0-8.3); WBCANC 8.3 X10*3/uL
--- NOTE | 2021-09-12 09:00 | ECG_ITS ---
Test Reason : qtc check Blood Pressure : / mmHG Vent. Rate : 099 BPM Atrial Rate : 099 BPM P-R Int : 162 ms QRS Dur : 098 ms QT Int : 354 ms P-R-T Axes : 056 082 049 degrees QTc Int : 454 ms Normal sinus rhythm Normal ECG When compared with ECG of 09-AUG-2021 09:48, No significant change was found Referred By: Maxwell Black Electronically Signed By:HAKEEM TONY
--- NOTE | 2021-09-12 11:02 | HO.PSYCHPN ---
Subjective Subjective Date of Service: 09/12/21 Reason For Visit: Suicidal Interim History: Patient said that nothing has changed and he continues to experience the same problems present on admission. Otherwise, he does not want to engage further. He said that he is fine with going to [facility] tomorrow. Agrees for COVID test and EKG to monitor med effects Patient does not have any questions. He denies any complaints. Mental Status Exam Mental Status Exam Narrative: No change to metnal staus: pt is alert and oriented to self, time, and situation (though does not think he has mental illness); casually groomed,? adequate hygiene; behavior is mildly guarded, though calm; minimal eye contact; mood is fine and affect is constricted; thought process is goal oriented; thought content is on [facility]; otherwise guarded but alluding to continued perseveration on paranoid, persecutory delusions about being tortured; denies SI though typically intermittent SI as fulfillment of task assigned to him by persecutors; patient believes he receives messages through various avenues, having thoughts implanted in his head or communications given through media. Denies [facility]. ?Patients insight and judgment are impaired Diagnostics Vital Signs (24Hr): Vital Signs - 24 hr 09/11/21 18:45 Temperature 97.4 F Pulse Rate 93 Respiratory Rate 16 Blood Pressure 119/72 Pulse Oximetry 96 Labs Results: 09/12/21 08:13 09/10/21 15:24 Labs: Laboratory Results - last 48 hr 09/10/21 09/10/21 09/12/21 15:24 15:24 08:13 WBC 8.4 RBC 4.87 Hgb 14.6 Hct 42.8 MCV 87.9 MCH 30.0 MCHC 34.1 RDW 12.7 Plt Count 210 MPV 10.1 Immature Gran % (Auto) 0.4 Neut % (Auto) 64.9 Lymph % (Auto) 20.1 Burnet % (Auto) 9.2 Eos % (Auto) 4.9 H Baso % (Auto) 0.5 Lymph # (Auto) 1.7 Burnet # (Auto) 0.8 Eos # (Auto) 0.4 Baso # (Auto) 0.0 Abs Immat Gran (auto) 0.03 Absolute Neuts (auto) 5.5 Absolute Nucleated RBC 0.000 Nucleated RBC % (auto) 0.0 Sodium 143 Potassium 3.9 Chloride 104 Carbon Dioxide 32 H Anion Gap 11 L BUN 12 Creatinine 0.81 Estim Creat Clear Calc TNP Estimated GFR > 60 Random Glucose 121 H D Calcium 9.6 Total Bilirubin 0.4 AST 16 ALT 23 Alkaline Phosphatase 78 Total Protein 7.0 Albumin 4.1 HIV 1&2 Ab/P24 Ag 4thGn Nonreactive 09/12/21 08:13 WBC RBC Hgb Hct MCV MCH MCHC RDW Plt Count MPV Immature Gran % (Auto) Neut % (Auto) Lymph % (Auto) Burnet % (Auto) Eos % (Auto) Baso % (Auto) Lymph # (Auto) Burnet # (Auto) Eos # (Auto) Baso # (Auto) Abs Immat Gran (auto) Absolute Neuts (auto) 5.3 Absolute Nucleated RBC Nucleated RBC % (auto) Sodium Potassium Chloride Carbon Dioxide Anion Gap BUN Creatinine Estim Creat Clear Calc Estimated GFR Random Glucose Calcium Total Bilirubin AST ALT Alkaline Phosphatase Total Protein Albumin HIV 1&2 Ab/P24 Ag 4thGn EKG EKG: reviewed EKG Comment: Date of Service: 09/12/21 Procedure(s): ECG 12 lead EKG Accession Number(s): [id number] cc: ~ Test Reason : qtc check Blood Pressure : / mmHG Vent. Rate : 099 BPM ? ? Atrial Rate : 099 BPM ?? P-R Int : 162 ms? QRS Dur : 098 ms ? ? QT Int : 354 ms ? ? ? P-R-T Axes : 056 082 049 degrees ?? QTc Int : 454 ms ? Normal sinus rhythm Normal ECG When compared with ECG of 09-AUG-2021 09:48, No significant change was found Medications Medications Current Medications Acetaminophen (Acetaminophen 325 Mg Tablet) 650 mg PO Q6H PRN PRN Reason: Pain, Mild (Pain Scale 1-3) Al Hydroxide/Mg Hydroxide (Magnesium Hydrox/Alum Hydrox 30 Ml Oral.Susp) 30 ml PO Q6H PRN PRN Reason: Heartburn/Nausea Calcium Carbonate (Calcium Carbonate 750 Mg Tab.Chew) 750 mg PO Q4H PRN PRN Reason: Indigestion Last Admin: 08/06/21 19:35 Dose: 750 mg Documented by: Clozapine (Clozapine 25 Mg Tablet) 25 mg PO DAILY FIDEL Last Admin: 09/12/21 08:22 Dose: 25 mg Documented by: Diphenhydramine HCl (Diphenhydramine Hcl 25 Mg Tablet) 50 mg PO Q4H PRN PRN Reason: agitation Last Admin: 07/26/21 09:00 Dose: 50 mg Documented by: Hydroxyzine HCl (Hydroxyzine Hcl 25 Mg Tablet) 25 mg PO BEDTIME PRN PRN Reason: Anxiety Last Admin: 08/04/21 21:07 Dose: 25 mg Documented by: Magnesium Hydroxide (Milk Of Magnesia 30 Ml Oral.Susp) 30 ml PO DAILY PRN PRN Reason: Constipation Nicotine Polacrilex (Nicotine Polacrilex 2 Mg Gum) 2 mg BUCCAL Q2H PRN PRN Reason: Nicotine Cravings Trazodone HCl (Trazodone Hcl 50 Mg Tablet) 50 mg PO BEDTIME PRN PRN Reason: Insomnia Ziprasidone (Ziprasidone 20 Mg Capsule) 20 mg PO TID PRN PRN Reason: agitation Ziprasidone (Ziprasidone Mesylate 20 Mg Vial) 20 mg IM BID PRN PRN Reason: on Euceda; if refuses PO Allergies Allergies Allergy/AdvReac Type Severity Reaction Status Date / Time olanzapine [OLANZAPINE] Allergy Severe FACIAL Verified 04/06/21 10:20 SWELLING Assessment & Plan Assessment & Plan (1) Schizoaffective disorder: Status: Chronic Code(s): F25.9 - Schizoaffective disorder, unspecified Assessment and Plan: started meds few days ago - tolerating so far- maybe calmer due to it still pretty shut down (2) Starvation ketoacidosis: Status: Resolved Code(s): E87.2 - Acidosis Assessment and Plan: denies current plan for this (3) PTSD (post-traumatic stress disorder): Status: Suspected Code(s): F43.10 - Post-traumatic stress disorder, unspecified Assessment and Plan: Impression: Patient is a 35-year-old male with history of schizophrenia, paranoid type who presents for paranoid, persecutory delusions, in the face of going off medications, prompting pt to attempt suicide by starvation and water deprivation. While trying to starve himself to , and just days before this admission, patient also attempted to kill himself by overdosing on Tylenol; when this did not work he tried again at a higher dose. Pt now presents to [facility]5 from medical floor where he required fluid resuscitation,?electrolytes replenished and treatment for starvation ketoacidosis, hypernatremia and acute kidney injury.? Pt now medically cleared and transferred to psychiatric unit. ?Patient was recently discharged from the unit around 05/13/2021. HOspital course: Patient currently suffers from severe paranoid persecutory delusions that frequently direct him to harm himself in order to save his family from future torture.? Patient has no insight.? Currently refuses medications and remains on Section 12 B. he says he does not necessarily want to leave the hospital, nor does he want to stay but does not want to sign a CV worried that it will be unacceptable to his persecutors. -patient remains in severe mental anguish over what is the right thing to do, very worried about making the wrong decision which will aggravate his persecutors and therefor put his family in future jeopardy; patient eventually decided to sign a CV but then later signed a 3 day notice.? He agreed to take Clozaril but then was again ambivalent.? Patient remains willing to self-harm to the point of suicide based on paranoid delusions that he must do so in order to save his family from future torment. -over the weekend patient was screaming, out of control and required medication restraint 07/11 patient remains with joel paranoid, persecutory delusions, thoughts to starve himself to based on paranoid delusion, no insight and impaired judgment. -currently he is eating and drinking but only minimally 07/12 pt decided to take Clozaril 07/13:? Patient is tormented seems to have reached a boiling point and he agreed to take Clozaril and sign in 07/15- says he will try a new approach to his decision making; agrees to continue taking Clozaril.? Remains guarded, and with paranoid delusions 07/21 floridly psychotic with intense paranoid, persecutory delusions that are overwhelming patient into repeated unsafe thinking or behavior including suicide, and starvation and water deprivation.? Patient has no insight and does not believe that medications help at all; he goes back and forth about whether to take medications as he's very anxious about contradicting his persecutors whom he believes give him messages directing his behavior. 07/23 pt again decided to stop taking medications, a frequent decision emerging every few days as patient again feels that it's safer to listen to his persecutors (paranoid delusions) then it is to go against their edict and take medications. Over the past 2 weeks, only after lengthy discussions, would patient change his mind and go back to taking medications; however this reversion is not due to any moment of insight but rather a combination of emotional exhaustion and him trying to find a loophole in his persecutors edict to not take medications. -patient put in 3 day notice 07/24-07/28: sometimes withdrawn; sometimes agitated, yelling in anguished distress about being threatened by tormentors; intermittently taking medications 07/29 - rescinded 3 day notice -since then, he's agreed to take medications, though this is intermittent; taking medications however does not represent improved insight or judgment, but as patient explains, is only done because he has for the moment not concluded that They, his torementors, have specifically barred him from doing so. This makes medication management difficult since he is on Clozaril which has a narrow window for which one can safely start/stop this med. om -He continues to intermittently stop Eating and drinking in obedience to paranoid delusion with idea that he should either commit suicide or undergo some other torture; remains without insight; remains anguished. He volunteers that he has received direction on how to kill himself post discharge and he intermittently has plans to kill himself on the unit, though he has thus far been able to limit his actions towards this end. Patient believes he receives messages through various avenues, having thoughts implanted in his head or communications given through media or circumstance. Patient reports he wants to trust this fiction writer and staff but is never sure whether or not fiction writer/staff is part of a conspiracy to torture him. on 08/08: Patient exhibited bizarre, generating movements of primarily his upper torso; fiction writer examined patient and this was not dystonia, akathisia and was not seizure activity but rather patient's own voluntary behavior done in obedience to direction from his imagined persecutor; pt later confirmed this. NMS ruled out -labs (afebrile, autonomic stable; LDH wnl; CPK elevated as expected). Clozapine induced myoclonus considered but again given patient's presentation and his own self reporting that these movements are guided by delusional thought, very unlikely. Patient told fiction writer that since medications are being given to treat a mental illness, which he does not believe he has, he will no longer take medications -08/10required IM medication, chemical restraint for wild in unsafe behavior, hitting his head against the wall unable to be redirected 08/11 more calm; body movements not present; can advance to q5 and off 1:1 for now (discussed with staff who agree). 08/18 -pt restarted on Clozapine (on 08/17) -calm on unit, but not willing to enage in talk therapy; mostly pacing halls during day -Bizarre body movements remain resolved? -patient's movements voluntary and done in obedience to delusion 08/23: Patient remains difficult to engage in is only superficially interactive with fiction writer which has been the case since a few days before court. Will continue to titrate Clozaril. pt denies med side-effects -pt agreed to Covid vaccination; he was not interested in hearing about risks/side-effects though fiction writer discussed anyway; he asked if he could get Flu vaccination and nursing will review to make sure he did not already get. ?Pt got Moderna X1 on 08/24/2108/26: no changes in med regimen, continue clozapine 08/27: Pt will continue on clozapine trial, which is being adjusted as tolerated for efficacy 08/28: Pt is redirectable, accepting treatment, will continue on clozapine trial for psychosis, SI -no change; politely refuses to engage; denies complaints and has no requests; mostly keeps to himself and often paces the hallways. 09/01 remains guarded; polite to fiction writer but unwilling to engage. pt has been watching TV and has at times looks like he's interacting with TV, smiling and nodding his head; will not discuss this with fiction writer. 09/02/21 and onward.... continue with current treatment no changes 09/09/21 patient remains unwilling to engage with staff or this fiction writer refusing to discuss psychiatric symptoms and saying he does not want to talk. He was however willing to tell fiction writer that nothing has changed that regarding feeling persecuted but would not go into any further details other than to say he was safe and had no thoughts of hurting himself while on the unit. Patient continues to report he tolerating medication and denies any side effects. He has no complaints and no requests other than to find out when he will be going to [facility] Barrier to discharge:? Patient is floridly psychotic; he has no insight and currently suffers from paranoid, persecutory delusions, believing he needs to either kill himself or engage in behaviors that will result in , in order to fulfill his persecutors demands; if discharged before stable, patient will quickly decompensate and be at high risk for suicide; he requires locked unit, and likely a [facility] admission, to resolve symptoms with medication management.?[facility] application submitted:? Compliance Review Specialist reviewed case with Dr. Mcleod and other team members and it was discussed whether or not Dilshad needs a longer term hospitalization such as [facility]. Patient recently revealed that over the days/weeks prior to this admission, in addition to trying to starve/dehydrate himself to , he tried to kill himself 2x by Tylenol overdose, making fiction writer more aware of the extent of his unsafe behavior. Patient remains without any insight at all. He is fully overwhelmed by persecutory delusions. At this point it is becoming increasing difficult for fiction writer to imagine a scenario where Dilshad is safe outside of a longer term commitment where he is court ordered to take medications. For while he has indeed benefited from Clozapine (improved mood, relief from emotional anguish and reprieve from being contacted by persecutors [delusions]) his illness keeps him from attributing that benefit to medication; rather he maintains that medications are placebos and his relief is due to some other cause; and thus, on his own, patient's illness renders him unable to remain adherent with medications. However, if Dilshad had an extended hospital stay and remained on medications for an extended period of months, he may experience his relief from torture? as a product of medications and thus achieve enough insight to remain on medications as an outpatient. Team discussed and fully agrees that patient requires [facility] admission for his safety. PLAN: q5min checks (currently no unsafe behaviors) Court ordered involuntary commitment; court ordered substituted judgment/Euceda for medication Total daily clozaril dose: 200mg QTc ?? QTc Int : 454 ms (on 1/10/22) CLOZARIL 175mg; Clozarile 25mg AM -weekly CBC w/ diff -cannot refuse PO Clozaril; give IM Ziprasidone if refuses received Moderna X1 on 08/24/21 next dose pending Ziprasidone 20mg IM if refuses Clozaril -Team agrees that patient requires long term care phlebotomist admission and submitted application to [facility] -changed scheduled clonazepam 0.25 mg b.i.d. PRN for anxiety Micromedex: 1)?Rapid titration in hospitalized patients: Day 1, 50 mg orally followed by 50 to 100 mg as needed every 6 hours (up to an additional 150 mg). Thereafter, may increase daily dosage in increments of 50 to 100 mg. Mean dosage on day 1 was 207 mg/day in patients with prior clozapine exposure and 59.7 mg without prior exposure. Mean titration over 5.44 days to a dosage of 260 mg/day, lead to a mean dosage at discharge of 322 mg/day ?Marcelyrjohn CA, Peggy? A, Saglam? NG, et al: Rapid clozapine titration in patients with treatment refractory schizophrenia. Psychiatr Q 2016; 87(2):315-322. I spent minutes with the patient and/or on the patient floor today, greater than?50% of which was spent counseling/coordinating care. Reason for contiued inpatient stay Substantial Risk for: harm to self and inability to function
[2021-09-12 13:51] VITALS: BP 115/68; PULSE 90; RESP 14; TEMP 36.5
[2021-09-12 14:11] LABS: COVID-19 Test Negative (Negative); IDNOW Serial# 9DD0AD1C
--- NOTE | 2021-09-12 15:58 | P.DS_ITS ---
DS: Providers Provider Date of Service: 09/13/21 Date of admission: 07/05/21 16:31 Date of discharge: 09/13/21 Primary care physician: Unknown Physician Attending physician on admission: Maxwell Black Attending physician on discharge: Maxwell Black DS: Diagnosis Discharge Diagnosis (1) Schizoaffective disorder: Status: Chronic (2) Starvation ketoacidosis: Status: Resolved (3) PTSD (post-traumatic stress disorder): Status: Suspected DS: Medications Discharge Medications Home Medications: Home Medications Medication Instructions Recorded Confirmed No Known Home Meds 07/04/21 07/10/21 SEE DISCHARGE PLAN FOR MEDICATIONS Mental Status Exam Mental Status Exam Narrative: No change to metnal staus: pt is alert and oriented to self, time, and situation (though does not think he has mental illness); casually groomed,? adequate hygiene; behavior is mildly guarded, though calm; minimal eye contact; mood is fine and affect is constricted; thought process is goal oriented; thought content is on [facility]; otherwise guarded but alluding to continued perseveration on paranoid, persecutory delusions about being tortured; denies SI though typically intermittent SI as fulfillment of task assigned to him by persecutors; patient believes he receives messages through various avenues, having thoughts implanted in his head or communications given through media. Denies [facility]. ?Patients insight and judgment are impaired Data Data Completed and Pending Completed studies during hospitalization [Text1]: 09/10/21 09/10/21 09/12/21 15:24 15:24 08:13 WBC 8.4 RBC 4.87 Hgb 14.6 Hct 42.8 MCV 87.9 MCH 30.0 MCHC 34.1 RDW 12.7 Plt Count 210 MPV 10.1 Immature Gran % (Auto) 0.4 Neut % (Auto) 64.9 Lymph % (Auto) 20.1 Dane % (Auto) 9.2 Eos % (Auto) 4.9 H Baso % (Auto) 0.5 Lymph # (Auto) 1.7 Dane # (Auto) 0.8 Eos # (Auto) 0.4 Baso # (Auto) 0.0 Abs Immat Gran (auto) 0.03 Absolute Neuts (auto) 5.5 Absolute Nucleated RBC 0.000 Nucleated RBC % (auto) 0.0 Sodium 143 Potassium 3.9 Chloride 104 Carbon Dioxide 32 H Anion Gap 11 L BUN 12 Creatinine 0.81 Estim Creat Clear Calc TNP Estimated GFR > 60 Random Glucose 121 H D Calcium 9.6 Total Bilirubin 0.4 AST 16 ALT 23 Alkaline Phosphatase 78 Total Protein 7.0 Albumin 4.1 COVID-19 ([facility]) COVID-19 Clin Com HIV 1&2 Ab/P24 Ag 4thGn Nonreactive 09/12/21 09/12/21 08:13 13:33 WBC RBC Hgb Hct MCV MCH MCHC RDW Plt Count MPV Immature Gran % (Auto) Neut % (Auto) Lymph % (Auto) Dane % (Auto) Eos % (Auto) Baso % (Auto) Lymph # (Auto) Dane # (Auto) Eos # (Auto) Baso # (Auto) Abs Immat Gran (auto) Absolute Neuts (auto) 5.3 Absolute Nucleated RBC Nucleated RBC % (auto) Sodium Potassium Chloride Carbon Dioxide Anion Gap BUN Creatinine Estim Creat Clear Calc Estimated GFR Random Glucose Calcium Total Bilirubin AST ALT Alkaline Phosphatase Total Protein Albumin COVID-19 ([facility]) Negative COVID-19 Clin Com See Note HIV 1&2 Ab/P24 Ag 4thGn DS: Summary Hospital Course Hospital Course: SEPTEMBER 13 DISCHARGE SUMMARY: Impression: Patient is a 35-year-old male with history of schizoaffective disorder, depressed type who presents for paranoid, persecutory delusions, in the face of going off medications, prompting pt to attempt suicide by starvation and water deprivation.? While trying to starve himself to , and just days before this admission, patient also attempted to kill himself by overdosing on Tylenol; when this did not work he tried again at a higher dose. Pt now presents to [facility] from medical floor where he required fluid resuscitation,?electrolytes replenished and treatment for starvation ketoacidosis, hypernatremia and acute kidney injury.? Pt now medically cleared and transferred to psychiatric unit. ?Patient was recently discharged from the unit around 05/13/2021. -patient diagnosed with schizoaffective disorder since he has had bouts of depression in the past -patient was diagnosed with PTSD and while this history is not clear patient has alluded to childhood trauma which has to some degree in influenced some of his delusional content. -during his admission in May 2021, patient seemed to some relief and partial resolution of psychotic symptoms once he got to Clozaril 200 mg however on discharge he immediately stopped taking medications -during this current admission, patient has found no such relief even a Clozaril 200 mg Decision to submit application to [employer]: Throughout admission, Patient remained floridly psychotic; he has no insight and currently suffers from paranoid, persecutory delusions, believing he needs to either kill himself or engage in behaviors that will result in , in order to fulfill his persecutors demands; if discharged before stable, patient will quickly decompensate and be at high risk for suicide; he requires locked unit, and likely a [facility] admission, to resolve symptoms with medication management.?[facility] application submitted:? Genetics Physician reviewed case with Dr. Mcleod and other team members and it was discussed whether or not Dilshad needs a longer term hospitalization such as [facility]. Patient recently revealed that over the days/weeks prior to this admission, in addition to trying to starve/dehydrate himself to , he tried to kill himself 2x by Tylenol overdose, making investment underwriter more aware of the extent of his unsafe behavior. Patient remains without any insight at all. He is fully overwhelmed by persecutory delusions. At this point it is becoming increasing difficult for investment underwriter to imagine a scenario where Dilshad is safe outside of a longer term commitment where he is court ordered to take medications. For while he has indeed benefited from Clozapine (improved mood, relief from emotional anguish and reprieve from being contacted by persecutors [delusions]) his illness keeps him from attributing that benefit to medication; rather he maintains that medications are placebos and his relief is due to some other cause; and thus, on his own, patient's illness renders him unable to remain adherent with medications. However, if Dilshad had an extended hospital stay and remained on medications for an extended period of months, he may experience his relief from torture? as a product of medications and thus achieve enough insight to remain on medications as an outpatient.? Team discussed and fully agrees that patient requires [facility] admission for his safety. Hospital course: Pt was admitted to psychiatric unit after cleared and discharged from medical floor. Patient currently suffers from severe paranoid persecutory delusions that frequently direct him to harm himself in order to save his family from future torture.? Patient has no insight.? Currently refuses medications and remains on [place] 12 B. he says he does not necessarily want to leave the hospital, nor does he want to stay but does not want to sign a CV worried that it will be unacceptable to his persecutors. -patient remains in severe mental anguish over what is the right thing to do, very worried about making the wrong decision which will aggravate his persecutors and therefor put his family in future jeopardy; patient eventually decided to sign a CV but then later signed a 3 day notice.? He agreed to take Clozaril but then was again ambivalent.? Patient remains willing to self-harm to the point of suicide based on paranoid delusions that he must do so in order to save his family from future torment. -over the weekend patient was screaming, out of control and required medication restraint 07/11 patient remains with joel paranoid, persecutory delusions, thoughts to starve himself to based on paranoid delusion, no insight and impaired judgment. -currently he is eating and drinking but only minimally 07/12 pt decided to take Clozaril 07/13:? Patient is tormented seems to have reached a boiling point and he agreed to take Clozaril and sign in 07/15- says he will try a new approach to his decision making; agrees to continue taking Clozaril.? Remains guarded, and with paranoid delusions 07/21 floridly psychotic with intense paranoid, persecutory delusions that are overwhelming patient into repeated unsafe thinking or behavior including suicide, and starvation and water deprivation.? Patient has no insight and does not believe that medications help at all; he goes back and forth about whether to take medications as he's very anxious about contradicting his persecutors whom he believes give him messages directing his behavior. 07/23 pt again decided to stop taking medications, a frequent decision emerging every few days as patient again feels that it's safer to listen to his persecutors (paranoid delusions) then it is to go against their edict and take medications. Over the past 2 weeks, only after lengthy discussions, would patient change his mind and go back to taking medications; however this reversion is not due to any moment of insight but rather a combination of emotional exhaustion and him trying to find a loophole in his persecutors edict to not take medications. -patient put in 3 day notice 07/24-07/28: sometimes withdrawn; sometimes agitated, yelling in anguished distress about being threatened by tormentors; intermittently taking medications 07/29 - rescinded 3 day notice over next weeks: -since then, he's agreed to take medications, though this is intermittent; taking medications however does not represent improved insight or judgment, but? as patient explains, is only done because he has for the moment not concluded that They, his torementors,?have specifically barred him from doing so. This makes med management difficult since he is on Clozaril which has a limited time span during which one can safely start/stop this med. -He continues to intermittently stop Eating and drinking in obedience to paranoid delusion with idea that he should either commit suicide or undergo some other torture; remains without insight; remains anguished. He volunteers that he has received direction on how to kill himself post discharge and he intermittently has plans to kill himself on the unit, though he has thus far been able to limit his actions towards this end. Patient believes he receives messages through various avenues, having thoughts implanted in his head or communications given through media or circumstance.? Patient reports he wants to trust this investment underwriter and staff but is never sure whether or not investment underwriter/staff is part of a conspiracy to torture him. on 08/08:?Patient exhibited bizarre, generating movements of primarily his upper torso; investment underwriter examined patient and this was not dystonia, akathisia and was not seizure activity but rather patient's own voluntary behavior done in obedience to direction from his imagined persecutor; pt later confirmed this to investment underwriter.? NMS ruled out -labs (afebrile, autonomic stable; LDH wnl; CPK elevated as expected). Clozapine induced myoclonus considered? but again given patient's presentation and his own self reporting that these movements are guided by delusional thought, very unlikely.? Patient told investment underwriter that since medications are being given to treat a mental i llness, which he does not believe he has, he will no longer take medications -08/10 required IM medication, chemical restraint for wild in unsafe behavior, hitting his head against the wall unable to be redirected 08/11 more calm; body movements not present; can advance to q5 and off 1:1 for now (discussed with staff who agree). 08/18 -pt restarted on Clozapine (on 08/17) -calm on unit, but not willing to enage in talk therapy; mostly pacing halls during day -Bizarre body movements remain resolved? -patient's movements voluntary and done in obedience to delusion 08/23:? Patient remains difficult to engage in is only superficially interactive with investment underwriter which has been the case since a few days before court.? Will continue to titrate Clozaril. pt denies med side-effects -pt agreed to Covid vaccination; he was not interested in hearing about risks/side-effects though investment underwriter discussed anyway; he asked if he could get Flu vaccination and nursing will review to make sure he did not already get. ?Pt got Moderna X1 on 08/24/2108/26: no changes in med regimen, continue clozapine 08/27: Pt will continue on clozapine trial, which is being adjusted as tolerated for efficacy 08/28: Pt is redirectable, accepting treatment, will continue on clozapine trial for psychosis, SI -no change; politely refuses to engage; denies complaints and has no requests; mostly keeps to himself and often paces the hallways. 09/01 remains guarded; polite to investment underwriter but unwilling to engage. pt has been watching TV and has at times looks like he's interacting with TV, smiling and nodding his head; will not discuss this with investment underwriter. 09/02/21 and onward.... -no changes; continue with current treatment 09/09/21 patient remains unwilling to engage with staff or this investment underwriter refusing to discuss psychiatric symptoms and saying he does not want to talk.? He was however willing to tell investment underwriter that nothing has changed that regarding feeling persecuted but would not go into any further details other than to say he was safe and had no thoughts of hurting himself while on the unit.? Patient continues to report he tolerating medication and denies any side effects.? He has no complaints and no requests other than to find out when he will be going to [facility]. 09/11 no change; pt says i have no problem with going to [facility]. -although he has remained reticent and not willing to engage, he has acknowledged that nothing has changed for him regarding his experiences of being persecuted. It is thus likely that patient continues to have a plan or an idea regarding suicide post discharge as there is no reason to believe this has changed over the past few weeks. That said, investment underwriter remains hopeful that once clozapine becomes therapeutic patient will have insight into his psychotic illness and be able to exercise good judgment stay safe. PLAN: Discharge to [facility] Court ordered involuntary commitment; court ordered substituted judgment/[facility] for medication Total daily clozaril dose: 200mg CLOZARIL 175mg (since 09/09/21) CLOZARIL 25mg AM (since 09/08/21) -weekly CBC w/ diff remained WNL -QTc??? QTc Int : 454 ms?(on 09/12/21) -IM Ziprasidone 20mg if refuses PO Clozaril received Moderna X1 on 08/24/21; next dose pending 2020 DISCHARGE SUMMARY: Patient is a 35-year-old male with history of psychotic illness, recently charged from am 3 a few weeks ago who self presented to the emergency room saying that he ran to the hospital and if he had a gun he would shoot himself.? In ED patient was agitated and disorganized.? On floor patient received Haldol Ativan and Benadryl as a p.r.n. for agitation and was then calm.? On admission he did not want to talk and was very guarded. After about a week on the unit patient decided to open up some about his experiences: Patient under much distress, deliberating whether or not to disclose his thoughts to this investment underwriter.? Patient said at 1st he did not want to discuss his medications and did not want to discuss the problem he is having because he was not sure whether not he could trust investment underwriter, alluding to possibility that investment underwriter is part of conspiracy persecuting this patient.? Patient shared he wants help but is not sure what form the help should come in.? He also feels that medications are placebo and not doing anything.? However, as the conversation continued, patient eventually said F-it and started to disclose what he is struggling with.? With much emotional anguish, intermittent tears and outbursts of anger,? Patient reports that he believes he has committed crimes though he would not disclose them.? He went to the police to confess these crimes, hoping to be put in long-term for life.? Part of the reason he presented to police was because he has been shown things through different media [outlets] that imply that [he] will be tortured. ?Patient explained that he gets messages through the TV and radio and sometimes other people, his cell phone or e-mail that he is going to be tortured.? He thinks that the government and/or police or FBI are part of this conspiracy.? He says through tears that he has been told to do certain things by these communications that are impossible.? Certain things that if he does [them] to himself, he might lessen the amount of torture he will receive.? Patient yelled I water-boarded myself for 2 days trying to obey this order.? He repeated this and then? got extremely agitated, stood up, started yelling, clenching his fists,? smacking his hands and pacing the room...? Staff came over to assess for safety.? Patient calmed down and said that he does not want to hurt anyone and has no intention or plans to do so but understands that his actions were scary and he is apologetic.? Patient grabbed his head and repeated in loud, anguished voice ?I do not know what to do ?referring to whether to trust investment underwriter, take medications, stay on the inpatient unit or discharge... expressing he wants to trust investment underwriter but not sure if he can.? Genetics Physician attempted some reality testing and also appealed to logic saying that while patient is worried he will be tortured, he appears to be tortured now by this tremendously confusing experience.? Patient said that he does trust his parents and younger sister however he believes they do not understand the situation.? At this point investment underwriter and patient agreed to conclude conversation and allow patient to calm down.? Patient then walked outside room into the hallway, and then screamed several times you did this to me or something like that; he was eventually willing to take an Ativan which he said helped him. Hospital course and reasoning: ?1.?Started on Abilify and Prozac intermittently willing to take Abilfy, prozac. Patient started to disclose more info.? However after listening to the psychotic symptoms and mood stabilizing properties of Abilify, patient said he agrees to a trial of Abilify.? Patient reports that he was feeling suicidal prior to admission but that all SI has resolved. -initially intermittent med adherent with Abilify; denies side effects; at one point said it seemed to help with racing thoughts and depression but has since he does not think this the case. -patient suffering from persecutory delusions and subsequent depression and anxiety -some modest improvement on Abilfiy 15mg; agrees to go to 30mg (pt wants to see christine if this is a beneficial medication and does not want to wait for a slower titration; investment underwriter agrees with this approach). -Abilify was increased to 30 mg and patient reports some modest improvement saying feels overall a little less stressed by his chronic worries a little more able to feel comfortable with staff; however he remains guarded. -patient has been on Abilify 30 mg for about 3 days now; at 1st it seemed there was some improvement however today he reports that he is just as tormented as ever and that medication is not effective; patient references his delusional thoughts that he is being persecuted and there is no way to avoid it.? He says it does not matter what I do i'm always wrong... Patient however says he is willing to stay and try clozapine trial started on 04/22/21. -Patient alluded to childhood trauma which seems to influence some part of his current delusions 2.?Started on Clozapine: -patient titrated to clozapine 200 mg adding about 50 mg per day to regimen; he agreed to stay in [facility] for now, which given patient's numerous monotherapy fails leaves 1 to consider trial of 2 antipsychotics 3.?Delirium from too much Clozapine:?likely due to being on prozac simultaneaously which raised clozapine levels (pt asked for quick titration) -on apr 28 Patient presents as more disorganized and what sound to be like medication side effects such as increased salivation. He also became delirious having both AH and VH. -NMS rulled out: All lab work negative ruling out any diagnostic markers for NMS -held Clozapine for 2 days and delirum and side-effects rully resolved. Pt agreed to restarting Clozapine but at a slower titration -geraldo and theresa discontinued 4.?Clozapine restarted and re-titrated but at slower rate ? Again on Clozapine, pt reported feeling better saying he has less racing thoughts, anxiety and depression. Still paranoid delusions. Agrees to continued titration of Clozapine. depression and anxiety remain less bothersome; he still feels persecuted/conspired against however he feels less intruded upon by those persecuting him; still receives covert messages but they are less frequent/intrusive; ambivalent if lessening symptoms due meds or time (or persecutors); not sure if lessening of symptoms is a good thing or not.? Remains without side effects.? Patient remained without any SI or HI throughout his admission.? Though mostly keeping to himself and guarded with disclosures he was open with investment underwriter about his symptoms and demonstrated consistent appropriate behavior and impulse control on the unit.? CBC labs were drawn weekly and remained within normal limits and he tolerated clozapine well, even at 200 mg q.h.s., reporting absence of all side effects. On clozapine, patient consistently reported that his anxiety and depression were much improved.? Although he continued to struggle with paranoid delusions he continually said he was overall less stressed by them.? And while he continued to receive messages from conspirators, he said it was happening much less often.? Genetics Physician and patient discussed discharge and patient said he felt safe, stable and ready to work on treatment as an outpatient with both his prescriber and Therapist.? He feels he can commit to taking the medication for at least 3 months and will try to self-assess and keep a log recording his mood, burden and stress level, hoping to get a better idea of whether the medication remains effective. Genetics Physician discussed and patient understood risks of clozapine as well as the continued need to get blood draws once a week to which he agrees.? Patient was not in imminent risk for harm to self or others and does not rise to the level of involuntary commitment. His request for discharge honored. While he continues to suffer from psychotic symptoms, has is significantly less burdened and with some improved insight, saying he thinks it's best for him to continue with treatment as an outpatient. PAST PSYCH HX: Med trials: Rispderal: possible some benefit? 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 confessing crimes, sectioned to the ED) -this admission, patient self presented to the emergency room saying he was suicidal with thoughts or plans to stab himself with a knife or shoot himself with a gun; patient has been very guarded during this admission though he has started to disclose what he is struggling with. Patient has had several explosive episodes on the unit, yelling/screaming loudly, with intensity, with clenched fists (of note, while this is frightening and makes staff concerned about safety, he has made no threat to others and denies any HI, intention or urges to do so). ?He is very ambivalent about taking medications with a history of non adherence (currently says the don't work, are placebo ). ?Patient has no insight at all into his psychiatric illness/psychotic symptoms. ?Given the fact that patient was suicidal on admission, remains plagued by persecutory delusions with no insight and as a result tortures himself in the community, investment underwriter and team agree that patient is in imminent risk for harm to self and requires continued inpatient psychiatric treatment.? Plan was rob petition for civil commitment however patient decided to sign himself in -Medication hx: shared that only med that helped was Seroquel but he is not willing to retry since coming off it (for reasons he rather not discuss) was horrible event, causing hallucinations , not being able to tell if his mother was real, insominia for 4 days straight...He does not want any medication that is sedating since he feels need to be alert and focused. Time spent discussing smoking cessation with patient: 3 to 10 minutes Status at Discharge Functional status at discharge: independent ambulation Overall status at discharge: patient is not back to baseline Time Spent with Patient Time attestation: Total time spent providing and/or coordinating discharge services: Time spent: Greater than 30 minutes Discharge Plan Discharge Patient Disposition: Xfer Psychiatric Hosp Discharge Diagnosis: Schizoaffective Disorder, depressed type Referrals: Physician,Unknown J [Primary Care Provider] - 1 Week Discharge Medications: New acetaminophen 325 mg Tablet 650 mg PO Q6H PRN (Reason: Pain, Mild (Pain Scale 1-3)) Qty: 0 RF: 0 trazodone 50 mg Tablet 50 mg PO BEDTIME PRN (Reason: Insomnia) Qty: 0 RF: 0 calcium carbonate [Tums] 300 mg (750 mg) Tablet,Chewable 750 mg PO Q4H PRN (Reason: Indigestion) Qty: 0 RF: 0 ziprasidone HCl 20 mg Capsule 20 mg PO TID PRN (Reason: agitation) Qty: 0 RF: 0 magnesium hydroxide [Milk of Magnesia] 400 mg/5 mL Suspension 30 ml PO DAILY PRN (Reason: Constipation) Qty: 0 RF: 0 clozapine 25 mg Tablet 25 mg PO DAILY Qty: 0 RF: 0 clozapine 25 mg Tablet 175 mg PO BEDTIME Qty: 0 RF: 0 ziprasidone mesylate [Geodon] 20 mg/mL (final conc.) Recon Soln 20 mg IM BID PRN (Reason: on Euceda; if refuses PO) Qty: 0 RF: 0 MAG-AL 200-200 mg/5 mL Suspension 30 ml PO Q6H PRN (Reason: Heartburn/Nausea) Qty: 0 RF: 0 Discharge Orders: Discharge Order (Routine); Ordered 09/13/21 Ordered By: Maxwell Black Diet: regular diet Activity on Discharge: As tolerated Stand Alone Forms: Patient Portal Discharge page Care Plan Goals: Maintain mood and safe behaviors Take medications as prescribed Practice coping skills Health Concerns: Mood stability and behaviors Plan of Treatment: Work with your psychiatric providers regarding above concerns Take medications as prescribed Assessment: Risk assessment at time of discharge:? Patient was interviewed prior to discharge. He is fully oriented.
[2021-09-12 18:00] VITALS: BP 113/70; PULSE 96; RESP 14; TEMP 36.3; O2SAT 96
[2021-09-12] MEDS: cloZAPine 25 MG TABLET 175 MG PO (21:47)
[2021-09-13] MEDS: cloZAPine 25 MG TABLET PO (09:41)
== END 2021-09-13 12:35 | DRG 750 ==
PROVIDERS: Clinical Nurse Specialist Psychiatric/Mental Health, Adult; Registered Nurse; Social Worker; Admitting Provider Psychiatry & Neurology Psychiatry; Visit Provider Psychiatry & Neurology Psychiatry
DX: F25.9 Schizoaffective disorder, unspecified (principal); E44.1 Mild protein-calorie malnutrition; E87.2 Acidosis; R45.851 Suicidal ideations; F43.10 Post-traumatic stress disorder, unspecified; Z20.822 Contact with and (suspected) exposure to COVID-19; Z87.891 Personal history of nicotine dependence; Z79.899 Other long term (current) drug therapy
CPT/HCPCS: 36415; 80051; 80053; 80076; 80159; 82550; 82565; 83615; 84520; 85025; 85048; 87389; 87635; 92950; 93005; J0515; J1200; J2060; J3486; Q0163

== ENCOUNTER 2023-11-20 10:51 | Outpatient (REF) | payer OTHER, SELFPAY ==
[2023-11-20 11:12] LABS: MANUAL DIFF FLAG NO
[2023-11-20 12:54] LABS: Basophils Absolute Auto 0.1 X10*3/uL (0.0-0.2); Basophils Percent Auto 0.6 % (0-2); Eosinophils Absolute Auto 0.2 X10*3/uL (0.0-0.4); Eosinophils Percent Auto 2.2 % (0-4); Hematocrit 45.4 % (42.0-52.0); Hemoglobin 14.9 g/dl (14.0-18.0); Imm Gran Abs Auto 0.04 X10*3/uL (0.00-0.03); Imm Gran Pct Auto 0.4 % (0.0-0.4); Lymphocytes Absolute Auto 1.9 X10*3/uL (1.2-4.9); Lymphocytes Percent Auto 17.5 % (20-40); Mean Corpuscular HGB Conc 32.8 g/dl (31.0-36.0); Mean Corpuscular Hemoglobin 29.2 pg (27.0-33.0); Mean Corpuscular Volume 88.8 fL (80.0-98.0); Mean Platelet Volume 10.9 fL (9.4-12.4); Monocytes Absolute Auto 0.8 X10*3/uL (0.1-1.2); Monocytes Percent Auto 7.1 % (2-11); Neutrophils Absolute Auto 7.8 x10*3/uL (2.0-8.3); Neutrophils Percent Auto 72.2 % (45-73); Platelet Count 220 X10*3/uL (160-400); Red Blood Count 5.11 X10*6/uL (4.60-5.80); Red Cell Distribution Width 13.1 % (11.0-16.0); White Blood Count 10.8 X10*3/uL (4.8-10.8)
== END 2023-11-20 10:52 | disposition home or self-care (01) ==
LOC: HO.LABR 10:51
PROVIDERS: Visit Provider Clinical Nurse Specialist Psychiatric/Mental Health, Adult
DX: Z79.899 Other long term (current) drug therapy (principal)
CPT/HCPCS: 36415; 85025

== ENCOUNTER 2023-12-27 08:39 | Outpatient (REF) | payer MEDICAID, SELFPAY ==
[2023-12-27 08:55] LABS: MANUAL DIFF FLAG NO
[2023-12-27 09:17] LABS: Basophils Absolute Auto 0.1 X10*3/uL (0.0-0.2); Basophils Percent Auto 0.6 % (0-2); Eosinophils Absolute Auto 0.2 X10*3/uL (0.0-0.4); Hematocrit 44.8 % (42.0-52.0); Hemoglobin 14.8 g/dl (14.0-18.0); Imm Gran Abs Auto 0.04 X10*3/uL (0.00-0.03); Imm Gran Pct Auto 0.4 % (0.0-0.4); Lymphocytes Absolute Auto 1.9 X10*3/uL (1.2-4.9); Lymphocytes Percent Auto 17.7 % (20-40); Mean Corpuscular Hemoglobin 29.1 pg (27.0-33.0); Mean Platelet Volume 10.1 fL (9.4-12.4); Monocytes Absolute Auto 0.7 X10*3/uL (0.1-1.2); Monocytes Percent Auto 6.3 % (2-11); Neutrophils Absolute Auto 7.9 x10*3/uL (2.0-8.3); Platelet Count 247 X10*3/uL (160-400); Red Blood Count 5.09 X10*6/uL (4.60-5.80); Red Cell Distribution Width 12.7 % (11.0-16.0); White Blood Count 10.8 X10*3/uL (4.8-10.8)
[2023-12-27 09:43] LABS: Lithium 0.28 mmol/L (0.60-1.20)
[2023-12-27 09:50] LABS: Alanine Aminotransferase 23 U/L (0-40); Albumin Level 3.8 g/dL (3.5-5.0); Alkaline Phosphatase 94 U/L (39-117); Anion Gap 10 (12-20); Aspartate Amino Transferase 22 U/L (5-37); Bilirubin Total 0.6 mg/dL (0.0-1.0); Blood Urea Nitrogen 15 mg/dL (9-16); Carbon Dioxide 27 mmol/L (22-29); Chloride 109 mmol/L (96-108); Estimated Glomerular Filt Rate > 60; Glucose Random 181 mg/dL (60-115); Sodium 142 mmol/L (135-145); Total Protein 6.7 g/dL (6.5-8.0)
== END 2023-12-27 08:40 | disposition home or self-care (01) ==
LOC: HO.LAB 08:39
PROVIDERS: Visit Provider Clinical Nurse Specialist Psychiatric/Mental Health, Adult
DX: Z79.899 Other long term (current) drug therapy (principal)
CPT/HCPCS: 36415; 80053; 80178; 85025

== ENCOUNTER 2024-03-05 09:43 | Outpatient (REF) | payer MEDICAID, SELFPAY ==
[2024-03-05 09:55] LABS: MANUAL DIFF FLAG NO
[2024-03-05 10:41] LABS: Basophils Absolute Auto 0.1 X10*3/uL (0.0-0.2); Basophils Percent Auto 0.4 % (0-2); Eosinophils Absolute Auto 0.2 X10*3/uL (0.0-0.4); Eosinophils Percent Auto 1.6 % (0-4); Hematocrit 41.9 % (42.0-52.0); Hemoglobin 14.1 g/dl (14.0-18.0); Imm Gran Abs Auto 0.07 X10*3/uL (0.00-0.03); Imm Gran Pct Auto 0.5 % (0.0-0.4); Lymphocytes Absolute Auto 1.6 X10*3/uL (1.2-4.9); Lymphocytes Percent Auto 12.1 % (20-40); Mean Corpuscular HGB Conc 33.7 g/dl (31.0-36.0); Mean Corpuscular Hemoglobin 29.3 pg (27.0-33.0); Mean Corpuscular Volume 87.1 fL (80.0-98.0); Mean Platelet Volume 10.6 fL (9.4-12.4); Monocytes Absolute Auto 0.8 X10*3/uL (0.1-1.2); Monocytes Percent Auto 5.9 % (2-11); Neutrophils Absolute Auto 10.7 x10*3/uL (2.0-8.3); Neutrophils Percent Auto 79.5 % (45-73); Platelet Count 242 X10*3/uL (160-400); Red Blood Count 4.81 X10*6/uL (4.60-5.80); Red Cell Distribution Width 12.5 % (11.0-16.0); White Blood Count 13.5 X10*3/uL (4.8-10.8)
== END 2024-03-05 09:44 | disposition home or self-care (01) ==
LOC: HO.LAB 09:43
PROVIDERS: Clinical Nurse Specialist Psychiatric/Mental Health, Adult; Visit Provider Psychiatry & Neurology Psychiatry
DX: Z79.899 Other long term (current) drug therapy (principal)
CPT/HCPCS: 36415; 85025

== ENCOUNTER 2024-04-08 15:50 | Outpatient (REF) | payer MEDICAID, SELFPAY ==
[2024-04-08 16:05] LABS: MANUAL DIFF FLAG NO
[2024-04-08 17:08] LABS: Basophils Absolute Auto 0.1 X10*3/uL (0.0-0.2); Basophils Percent Auto 0.4 % (0-2); Eosinophils Absolute Auto 0.3 X10*3/uL (0.0-0.4); Eosinophils Percent Auto 2.3 % (0-4); Hematocrit 41.1 % (42.0-52.0); Hemoglobin 13.7 g/dl (14.0-18.0); Imm Gran Abs Auto 0.04 X10*3/uL (0.00-0.03); Imm Gran Pct Auto 0.3 % (0.0-0.4); Lymphocytes Percent Auto 16.4 % (20-40); Mean Corpuscular HGB Conc 33.3 g/dl (31.0-36.0); Mean Corpuscular Hemoglobin 29.3 pg (27.0-33.0); Mean Corpuscular Volume 87.8 fL (80.0-98.0); Mean Platelet Volume 10.4 fL (9.4-12.4); Monocytes Absolute Auto 0.8 X10*3/uL (0.1-1.2); Monocytes Percent Auto 6.7 % (2-11); Neutrophils Absolute Auto 8.9 x10*3/uL (2.0-8.3); Neutrophils Percent Auto 73.9 % (45-73); Platelet Count 243 X10*3/uL (160-400); Red Blood Count 4.68 X10*6/uL (4.60-5.80); Red Cell Distribution Width 12.9 % (11.0-16.0); White Blood Count 12.1 X10*3/uL (4.8-10.8)
== END 2024-04-08 15:51 | disposition home or self-care (01) ==
LOC: HO.LABR 15:50
PROVIDERS: Visit Provider Clinical Nurse Specialist Psychiatric/Mental Health, Adult
DX: Z79.899 Other long term (current) drug therapy (principal)
CPT/HCPCS: 36415; 85025

== ENCOUNTER 2024-06-03 07:49 | Outpatient (REF) | payer MEDICAID, SELFPAY ==
[2024-06-03 08:01] LABS: MANUAL DIFF FLAG NO
[2024-06-03 08:18] LABS: Basophils Percent Auto 0.3 % (0-2); Eosinophils Absolute Auto 0.2 X10*3/uL (0.0-0.4); Eosinophils Percent Auto 1.2 % (0-4); Hematocrit 43.3 % (42.0-52.0); Hemoglobin 14.5 g/dl (14.0-18.0); Imm Gran Abs Auto 0.04 X10*3/uL (0.00-0.03); Imm Gran Pct Auto 0.3 % (0.0-0.4); Lymphocytes Absolute Auto 1.4 X10*3/uL (1.2-4.9); Lymphocytes Percent Auto 9.6 % (20-40); Mean Corpuscular HGB Conc 33.5 g/dl (31.0-36.0); Mean Corpuscular Hemoglobin 29.2 pg (27.0-33.0); Mean Corpuscular Volume 87.1 fL (80.0-98.0); Mean Platelet Volume 10.3 fL (9.4-12.4); Monocytes Absolute Auto 0.9 X10*3/uL (0.1-1.2); Monocytes Percent Auto 6.3 % (2-11); Neutrophils Absolute Auto 11.8 x10*3/uL (2.0-8.3); Neutrophils Percent Auto 82.3 % (45-73); Platelet Count 235 X10*3/uL (160-400); Red Blood Count 4.97 X10*6/uL (4.60-5.80); Red Cell Distribution Width 12.6 % (11.0-16.0); White Blood Count 14.3 X10*3/uL (4.8-10.8)
== END 2024-06-03 07:50 | disposition home or self-care (01) ==
LOC: HO.LABR 07:49
PROVIDERS: Visit Provider Clinical Nurse Specialist Psychiatric/Mental Health, Adult
DX: Z79.899 Other long term (current) drug therapy (principal)
CPT/HCPCS: 36415; 85025

== ENCOUNTER 2024-07-29 14:09 | Outpatient (REF) | payer MEDICAID, SELFPAY ==
[2024-07-29 14:27] LABS: MANUAL DIFF FLAG NO
[2024-07-29 15:15] LABS: Basophils Absolute Auto 0.1 X10*3/uL (0.0-0.2); Basophils Percent Auto 0.5 % (0-2); Eosinophils Percent Auto 0.2 % (0-4); Hematocrit 43.9 % (42.0-52.0); Hemoglobin 14.8 g/dl (14.0-18.0); Imm Gran Abs Auto 0.06 X10*3/uL (0.00-0.03); Imm Gran Pct Auto 0.5 % (0.0-0.4); Lymphocytes Absolute Auto 2.1 X10*3/uL (1.2-4.9); Lymphocytes Percent Auto 16.5 % (20-40); Mean Corpuscular HGB Conc 33.7 g/dl (31.0-36.0); Mean Corpuscular Hemoglobin 28.8 pg (27.0-33.0); Mean Corpuscular Volume 85.6 fL (80.0-98.0); Mean Platelet Volume 10.2 fL (9.4-12.4); Monocytes Absolute Auto 0.9 X10*3/uL (0.1-1.2); Monocytes Percent Auto 6.7 % (2-11); Neutrophils Absolute Auto 9.7 x10*3/uL (2.0-8.3); Neutrophils Percent Auto 75.6 % (45-73); Platelet Count 235 X10*3/uL (160-400); Red Blood Count 5.13 X10*6/uL (4.60-5.80); Red Cell Distribution Width 12.9 % (11.0-16.0); White Blood Count 12.8 X10*3/uL (4.8-10.8)
== END 2024-07-29 14:10 | disposition home or self-care (01) ==
LOC: HO.LABR 14:09
PROVIDERS: Visit Provider Psychiatry & Neurology Psychiatry
DX: Z79.899 Other long term (current) drug therapy (principal)
CPT/HCPCS: 36415; 85025

== ENCOUNTER 2024-09-23 11:05 | Outpatient (REF) | payer MEDICAID, SELFPAY ==
[2024-09-23 11:20] LABS: MANUAL DIFF FLAG NO
[2024-09-23 11:44] LABS: Basophils Percent Auto 0.3 % (0-2); Hematocrit 44.4 % (42.0-52.0); Hemoglobin 14.8 g/dl (14.0-18.0); Imm Gran Abs Auto 0.04 X10*3/uL (0.00-0.03); Imm Gran Pct Auto 0.3 % (0.0-0.4); Lymphocytes Absolute Auto 1.7 X10*3/uL (1.2-4.9); Lymphocytes Percent Auto 14.4 % (20-40); Mean Corpuscular HGB Conc 33.3 g/dl (31.0-36.0); Mean Corpuscular Volume 86.9 fL (80.0-98.0); Mean Platelet Volume 10.1 fL (9.4-12.4); Monocytes Absolute Auto 0.9 X10*3/uL (0.1-1.2); Monocytes Percent Auto 7.9 % (2-11); Neutrophils Absolute Auto 9.2 x10*3/uL (2.0-8.3); Neutrophils Percent Auto 77.1 % (45-73); Platelet Count 248 X10*3/uL (160-400); Red Blood Count 5.11 X10*6/uL (4.60-5.80); Red Cell Distribution Width 12.9 % (11.0-16.0); White Blood Count 11.9 X10*3/uL (4.8-10.8)
[2024-09-23 11:52] LABS: Estimated Average Glucose 108 mg/dL; Hemoglobin A1C 136.6868 umol/L; Hemoglobin A1c % 5.4 % (<6.0)
[2024-09-23 12:51] LABS: Alanine Aminotransferase 29 U/L (0-40); Alkaline Phosphatase 90 U/L (39-117); Anion Gap 8 (12-20); Aspartate Amino Transferase 21 U/L (5-37); Bilirubin Total 0.5 mg/dL (0.0-1.0); Blood Urea Nitrogen 14 mg/dL (9-16); Carbon Dioxide 31 mmol/L (22-29); Chloride 106 mmol/L (96-108); Cholesterol 205 mg/dL (<200); Estimated Glomerular Filt Rate > 60; Glucose Random 79 mg/dL (60-115); HDL Cholesterol 32 mg/dL (>40); LDL Cholesterol Calculated 94 mg/dL (<100); Sodium 141 mmol/L (135-145); Total Protein 7.2 g/dL (6.5-8.0); Triglycerides 397 mg/dL (<150)
[2024-09-23 13:06] LABS: Thyroid Stimulating Hormone 1.38 uIU/mL (0.32-4.0)
== END 2024-09-23 11:06 | disposition home or self-care (01) ==
LOC: HO.LAB 11:05
PROVIDERS: Visit Provider Nurse Practitioner Family
DX: F20.9 Schizophrenia, unspecified (principal)
CPT/HCPCS: 36415; 80053; 80061; 83036; 84443; 85025

== ENCOUNTER 2024-10-22 09:08 | Outpatient (REF) | payer OTHER, SELFPAY ==
--- OUTSIDE RECORDS SUMMARY | 2024-10-22 09:23 | XMS_ITS | Clinical Summary ---
Author Organization [facility] ity Address [address] [place] [phone] Care Team Providers Care Clinical Pharmacist Name Role Phone Aleta Chavez MD Primary Care Provider [phone] Encounters Date Type Department Care Team Description 08/12/2024 Telephone Adult Medicine [facility] [address] [place] [address] Aleta Chavez MD from Last 3 Months Surgical History Surgery Date Site/Laterality Comments OTHER SURGICAL HISTORY PROCEDURE: [place] RHINOPLASTY PRIMARY W/MAJOR SEPTAL REPAIR Medical History Medical History Date Comments Schizoaffective disorder (CMS/HCC) DX:Schizoaffective disorder (HCC) Suicidal risk DX:Suicidal risk Suicide attempt (CMS/HCC) DX:Hawa cide attempt ([facility]) Vitamin D deficiency DX:Vitamin D deficiency Family History Medical History Relation Name Comments Diabetes Father Prostate cancer Father Diabetes Mother Relation Name Status Comments Father Mother Social History Tobacco Use Types Packs/Day Years Used Date Smoking Tobacco: Never Smokeless Tobacco: Never Alcohol Use Standard Drinks/Week Comments Never 0 (1 standard drink = 0.6 oz pur e alcohol) Sex and Gender Information Value Date Recorded Sex Assigned at Not on file Legal Sex Male 11:07 AM EDT Gender Identity Not on file Sexual Orientation Not on file Obstetrics History Last Filed Vital Signs Vital Sign Reading Time Taken Comments Blood Pressure 109/70 01/16/2024 9:00 AM EDT Pulse 78 01/16/2024 9:00 AM EDT Temperature - - Respiratory Rate - - Oxygen Saturation - - Inhaled Oxygen Concentration - - Weight 86.6 kg (191 lb) 01/16/2024 9:00 AM EDT Height 180.3 cm (5' 11 ) 01/16/2024 9:00 AM EDT Body Mass Index 26.64 01/16/2024 9:00 AM EDT Plan of Treatment Health Maintenance Due Date Last Done Comments Hepatitis B Vaccines (1 of 3 - 19+ 3-dose series) 01/01/2004 Depression Screening 03/28/2024 HIV Screening 03/28/2024 Hepatitis C Screening 03/28/2024 Social Influencers of Health Screening 03/28/2024 COVID-19 Vaccine (1 - 2023-2 5 season) 2024 Influenza Vaccine (#1) 2024 Cholesterol Screening (Lipid Panel) 01/16/2029 01/17/2024 DTaP,Tdap,and Td Vaccines (2 - Td or Tdap) 01/15/2034 01/16/2024 HIB Vaccines Aged Out No longer eligi ble based on patient's age to complete this topic HPV Vaccines Aged Out No longer eligi ble based on patient's age to complete this topic Hepatitis A Vaccines Aged Out No long er eligible based on patient's age to complete this topic IPV Vaccines Aged Out No longer eligi ble based on patient's age to complete this topic MMR Vaccines Aged Out No longer eligi ble based on patient's age to complete this topic Meningococcal ACWY Vaccine Aged Out N o longer eligible based on patient's age to complete this topic Meningococcal B Vacine Aged Out No lo nger eligible based on patient's age to complete this topic Pneumococcal Vaccine: Pediat rics (0 to 5 Years) and At-Risk Patients (6 to 64 Years) Aged Out No longer eligi ble based on patient's age to complete this topic RSV Immunization Patients Un priscila 20 months Aged Out No longer eligible b ased on patient's age to complete this topic Varicella Vaccines Aged Out No longer eligible based on patient's age to complete this topic Care Teams Clinical Pharmacist Relationship Specialty Start Date End Date Aleta Chavez MD [address] [place] [id number] PCP - General 08/24/23
--- OUTSIDE RECORDS SUMMARY | 2024-10-22 09:23 | XMS_ITS | Clinical Summary ---
Author Organization [facility] Address [address] [place] [id number] Care Team Providers Care Ostrich Farmer Name Role Phone Unavailable Primary Care Provider Unavailabl e Social History Tobacco Use Types Packs/Day Years Used Date Smoking Tobacco: Never Assessed Sex and Gender Information Value Date Recorded Sex Assigned at Not on file Legal Sex Male 10:23 AM EDT Gender Identity Not on file Sexual Orientation Not on file Plan of Treatment Health Maintenance Due Date Last Done Comments Hepatitis B Vaccine (1 of 3 - 19+ 3-dose series) 01/01/2004 Influenza Vaccine (#1) 2024 Pneumococcal Vaccine: Pediat rics (0 to 5 Years) and At-Risk Patients (6 to 64 Years) Aged Out No longer eligi ble based on patient's age to complete this topic [place]
[2024-10-22 09:27] LABS: MANUAL DIFF FLAG NO
[2024-10-22 09:47] LABS: Basophils Percent Auto 0.3 % (0-2); Eosinophils Absolute Auto 0.1 X10*3/uL (0.0-0.4); Eosinophils Percent Auto 0.7 % (0-4); Hematocrit 44.2 % (42.0-52.0); Hemoglobin 14.8 g/dl (14.0-18.0); Imm Gran Abs Auto 0.05 X10*3/uL (0.00-0.03); Imm Gran Pct Auto 0.6 % (0.0-0.4); Lymphocytes Absolute Auto 1.5 X10*3/uL (1.2-4.9); Lymphocytes Percent Auto 16.6 % (20-40); Mean Corpuscular HGB Conc 33.5 g/dl (31.0-36.0); Mean Corpuscular Hemoglobin 28.6 pg (27.0-33.0); Mean Corpuscular Volume 85.3 fL (80.0-98.0); Mean Platelet Volume 10.2 fL (9.4-12.4); Monocytes Absolute Auto 0.7 X10*3/uL (0.1-1.2); Monocytes Percent Auto 7.6 % (2-11); Neutrophils Absolute Auto 6.6 x10*3/uL (2.0-8.3); Neutrophils Percent Auto 74.2 % (45-73); Platelet Count 241 X10*3/uL (160-400); Red Blood Count 5.18 X10*6/uL (4.60-5.80); Red Cell Distribution Width 12.8 % (11.0-16.0); White Blood Count 8.9 X10*3/uL (4.8-10.8)
== END 2024-10-22 09:09 | disposition home or self-care (01) ==
LOC: HO.LABR 09:08
PROVIDERS: Visit Provider Clinical Nurse Specialist Psychiatric/Mental Health, Adult
DX: Z79.899 Other long term (current) drug therapy (principal)
CPT/HCPCS: 36415; 85025

== ENCOUNTER 2024-11-19 09:47 | Outpatient (REF) | payer OTHER, SELFPAY ==
[2024-11-19 09:57] LABS: MANUAL DIFF FLAG NO
[2024-11-19 10:36] LABS: Basophils Percent Auto 0.3 % (0-2); Eosinophils Percent Auto 0.1 % (0-4); Hematocrit 43.7 % (42.0-52.0); Hemoglobin 14.7 g/dl (14.0-18.0); Imm Gran Abs Auto 0.05 X10*3/uL (0.00-0.03); Imm Gran Pct Auto 0.4 % (0.0-0.4); Lymphocytes Absolute Auto 1.8 X10*3/uL (1.2-4.9); Lymphocytes Percent Auto 14.9 % (20-40); Mean Corpuscular HGB Conc 33.6 g/dl (31.0-36.0); Mean Corpuscular Hemoglobin 28.4 pg (27.0-33.0); Mean Corpuscular Volume 84.5 fL (80.0-98.0); Mean Platelet Volume 10.1 fL (9.4-12.4); Monocytes Absolute Auto 0.8 X10*3/uL (0.1-1.2); Monocytes Percent Auto 6.2 % (2-11); Neutrophils Absolute Auto 9.5 x10*3/uL (2.0-8.3); Neutrophils Percent Auto 78.1 % (45-73); Platelet Count 251 X10*3/uL (160-400); Red Blood Count 5.17 X10*6/uL (4.60-5.80); Red Cell Distribution Width 12.8 % (11.0-16.0); White Blood Count 12.2 X10*3/uL (4.8-10.8)
== END 2024-11-19 09:48 | disposition home or self-care (01) ==
LOC: HO.LABR 09:47
PROVIDERS: Visit Provider Clinical Nurse Specialist Psychiatric/Mental Health, Adult
DX: Z79.899 Other long term (current) drug therapy (principal)
CPT/HCPCS: 36415; 85025

== ENCOUNTER 2024-12-17 11:10 | Outpatient (REF) | payer OTHER, SELFPAY ==
[2024-12-17 11:21] LABS: MANUAL DIFF FLAG NO
[2024-12-17 11:38] LABS: Basophils Percent Auto 0.4 % (0-2); Eosinophils Percent Auto 0.1 % (0-4); Hematocrit 44.4 % (42.0-52.0); Imm Gran Abs Auto 0.03 X10*3/uL (0.00-0.03); Imm Gran Pct Auto 0.3 % (0.0-0.4); Lymphocytes Absolute Auto 1.6 X10*3/uL (1.2-4.9); Lymphocytes Percent Auto 17.4 % (20-40); Mean Corpuscular HGB Conc 33.8 g/dl (31.0-36.0); Mean Corpuscular Hemoglobin 28.4 pg (27.0-33.0); Mean Corpuscular Volume 84.1 fL (80.0-98.0); Monocytes Absolute Auto 0.6 X10*3/uL (0.1-1.2); Monocytes Percent Auto 6.6 % (2-11); Neutrophils Percent Auto 75.2 % (45-73); Platelet Count 233 X10*3/uL (160-400); Red Blood Count 5.28 X10*6/uL (4.60-5.80); Red Cell Distribution Width 12.9 % (11.0-16.0); White Blood Count 9.3 X10*3/uL (4.8-10.8)
--- OUTSIDE RECORDS SUMMARY | 2024-12-17 13:29 | XMS_ITS | Clinical Summary ---
Author Organization [facility] Facility Address [address] [place] [id number] Care Team Providers Care Spearer Name Role Phone Unavailable Primary Care Provider [...] - 19+ 3-dose series) 01/01/2004 Influenza Vaccine (Season Ended) 2025 Pneumococcal Vaccine: Peds ( 0 to 5 Years) and At-Risk Patients (6 to 49 Years) Aged Out No longer eligible b ased on patient's age to complete this topic [place]
--- OUTSIDE RECORDS SUMMARY | 2024-12-17 13:29 | XMS_ITS | Clinical Summary ---
Author Organization [employer] [facility] ity Address [address] [place] [phone] Care Team Providers Care Fabric Normalizer Name Role Phone Aleta Chavez MD Primary Care Provider [phone] Surgical History Surgery Date Site/Laterality Comments OTHER SURGICAL HISTORY PROCEDURE: [place] RHINOPLASTY PRIMARY W/MAJOR SEPTAL REPAIR Medical History Medical History Date Comments Schizoaffective disorder (CM S/HCC V24, CMS/HCC V28) DX:Schizoaffective disorder (HCC) Suicidal risk DX:Suicidal risk Suicide attempt (CMS/HCC V24, CMS/HCC V28) DX:Suicide attempt (HCC) Vitamin D deficiency DX:Vitamin D deficiency Family [...] - 2023-2 5 season) 2024 Influenza Vaccine (Season Ended) 2025 Cholesterol Screening (Lipid Panel) 01/16/2029 01/17/2024 DTaP,Tdap,and [...] age to complete this topic Meningococcal B Vaccine Aged Out No l onger eligible based on patient's age to complete [...] age to complete this topic Care Teams Fabric Normalizer Relationship Specialty Start Date End Date Aleta Chavez MD PCP - General 08/24/23
== END 2024-12-17 11:11 | disposition home or self-care (01) ==
LOC: HO.LABR 11:10
DX: Z79.899 Other long term (current) drug therapy (principal)
CPT/HCPCS: 36415; 85025

== ENCOUNTER 2025-04-07 09:53 | Outpatient (REF) | payer OTHER, SELFPAY ==
[2025-04-07 10:07] LABS: MANUAL DIFF FLAG NO
--- OUTSIDE RECORDS SUMMARY | 2025-04-07 10:23 | XMS_ITS | Clinical Summary ---
Author Organization [facility] Address [address] [place] [phone] Phone Care Team Providers Care Production Assembly Supervisor Name Role Phone Pcp, Unknown Primary Care Provider Marvel Beyer MD Unavailable Allergies Active Allergy Reactions Criticality Noted Date Comments Olanzapine Swelling 01/28/2018 Olanzapine 04/05/2021 Medications QUEtiapine (SEROQUEL) 25 MG tablet Take 25 mg by mouth nightly. Active Active Problems No known active problems Social History Tobacco Use Types Packs/Day Years Used Date Smoking Tobacco: Never Smokeless Tobacco: Never Alcohol Use Standard Drinks/Week Comments No 0 (1 standard drink = 0.6 oz pur e alcohol) Education Answer Date Recorded Are you interested in more education? Not on william e 12/30/2022 Are you concerned about learning? Not on file 12/30/2022 No 12/30/2022 No 12/30/2022 Digital Access Answer Date Recorded No 01/30/2023 No 01/30/2023 Reliable internet access at home? Not on file 01/30/2023 Device with a working camera? Not on file Sex and Gender Information Value Date Recorded Sex Assigned at Male 04/05/2021 3:15 PM EDT Legal Sex Male 3:02 PM EDT Gender Identity Male 04/05/2021 3:15 PM EDT Sexual Orientation Lesbian or [place] 04/06/2021 1: 47 PM EDT Last Filed Vital Signs Vital Sign Reading Time Taken Comments Blood Pressure 130/85 04/05/2021 3:07 PM EDT Pulse 89 04/05/2021 3:07 PM EDT Temperature 35.8 C (96.5 F) 04/05/2021 3:07 PM EDT Respiratory Rate 17 04/05/2021 3:07 PM EDT Oxygen Saturation 97% 04/05/2021 3:07 PM EDT Inhaled Oxygen Concentration - - Weight 65.8 kg (145 lb) 01/28/2018 5:32 AM EDT Height 180.3 cm (5' 11 ) 01/28/2018 5:32 AM EDT Body Mass Index 20.22 01/28/2018 5:32 AM EDT Plan of Treatment Health Maintenance Due Date Last Done Comments Adult Td,Tdap Booster 1984 LIPID PANEL 1984 DEPRESSION SCREENING 1996 HEPATITIS C SCREENING 2002 HIV ONE-TIME SCREENING (18-6 5 YEARS) 2002 SMOKING STATUS SCREENING (On ce After 26 Yrs) 2010 COVID-19 VACCINE (2023-2 5 season) 2024 08/24/2021 HEPATITIS A VACCINES Aged Out No long er eligible based on patient's age to complete this topic HIB VACCINES Aged Out No longer eligi ble based on patient's age to complete this topic MENINGOCOCCAL VACCINES (ACWY) Aged Out No longer eligible based on patient's age to complete this topic MENINGOCOCCAL VACCINES (B) Aged Out N o longer eligible based on patient's age to complete this topic PNEUMOCOCCAL VACCINES (0-49 years) Aged Out No longer eligible based on patient's age to complete this topic Medical Devices Not on file [facility] Address: [facility] [address] [address] [place] [address] Care Teams Production Assembly Supervisor Relationship Specialty Start Date End Date Pcp, Unknown PCP - General 04/05/21 Mavrel Goetz MD Internal Medicine 04/05/21 Additional Source Comments The information contained in this document represents components of the legal health record. It is not the complete legal health record.[facility]
--- OUTSIDE RECORDS SUMMARY | 2025-04-07 10:23 | XMS_ITS | Clinical Summary ---
Author Organization [facility] Address [address] [place] [address] Care Team Providers Care Detail Assembler Name Role Phone Unavailable Primary Care Provider [...] 19+ 3-dose series) 01/01/2004 Influenza Vaccine (#1) 2025 Pneumococcal Vaccine: Peds ( 0 to 5 Years) and At-Risk Patients (6 to 49 Years) Aged Out No longer eligible b ased on patient's age to complete this topic [place]
--- OUTSIDE RECORDS SUMMARY | 2025-04-07 10:23 | XMS_ITS | Clinical Summary ---
Author Organization [employer] [facility] ity Address [address] [place] [address] Care Team Providers Care Job Service Specialist Name Role Phone Aleta Chavez MD Primary Care Provider [phone] Surgical History Surgery Date Site/Laterality Comments OTHER SURGICAL HISTORY PROCEDURE: [place] RHINOPLASTY PRIMARY W/MAJOR SEPTAL REPAIR Medical History [...] of 3 - 19+ 3-dose series) 01/01/2004 HIV Screening 03/28/2024 Hepatitis C Screening 03/28/2024 Social Influencers of Health Screening 03/28/2024 COVID-19 Vaccine (1 - 2023-2 5 season) 2024 Depression Screening 09/03/2024 Influenza Vaccine (#1) 2025 Cholesterol Screening (Lipid Panel) 01/16/2029 01/17/2024 [...] to 49 Years) Aged Out No longer eligi ble based on patient's age to complete this topic RSV Immunization Patients Un priscila 20 months Aged Out No longer eligible b ased on patient's age to complete this topic Varicella Vaccines Aged Out No longer eligible based on patient's age to complete this topic Care Teams Job Service Specialist Relationship Specialty Start Date End Date Aleta Chavez MD PCP - General 08/24/23
[2025-04-07 10:38] LABS: Hematocrit 43.6 % (42.0-52.0); Hemoglobin 15.4 g/dl (14.0-18.0); Imm Gran Abs Auto 0.05 X10*3/uL (0.00-0.03); Imm Gran Pct Auto 0.4 % (0.0-0.4); Lymphocytes Absolute Auto 1.9 X10*3/uL (1.2-4.9); Mean Corpuscular HGB Conc 35.3 g/dl (31.0-36.0); Mean Corpuscular Hemoglobin 28.9 pg (27.0-33.0); Mean Corpuscular Volume 82.0 fL (80.0-98.0); NRBC Abs Auto 0.000 X10*3/uL (0.0-0.012); NRBC Pct Auto 0.0 /100WBC (0.0-0.2); Platelet Count 230 X10*3/uL (160-400); Red Blood Count 5.32 X10*6/uL (4.60-5.80); White Blood Count 13.1 X10*3/uL (4.8-10.8)
== END 2025-04-07 09:54 | disposition home or self-care (01) ==
LOC: HO.LABR 09:53
DX: Z13.89 Encounter for screening for other disorder (principal); Z79.899 Other long term (current) drug therapy
CPT/HCPCS: 36415; 85025

== ENCOUNTER 2025-05-16 08:59 | Outpatient (REF) | payer OTHER, SELFPAY ==
--- OUTSIDE RECORDS SUMMARY | 2025-05-16 09:03 | XMS_ITS | Clinical Summary ---
Author Organization [employer] [facility] ity Address [address] [place] [phone] Care Team Providers Care Plate Preparer Name Role Phone Aleta Chavez MD Primary Care Provider [phone] Surgical History Surgery Date Site/Laterality Comments OTHER SURGICAL HISTORY PROCEDURE: [place] RHINOPLASTY PRIMARY W/MAJOR SEPTAL REPAIR Medical History [...] 03/28/2024 Social Influencers of Health Screening 03/28/2024 Depression Screening 09/03/2024 COVID-19 Vaccine (1 - 2023-2 5 season) 2025 Influenza Vaccine (#1) 2025 Cholesterol Screening (Lipid [...] age to complete this topic Care Teams Plate Preparer Relationship Specialty Start Date End Date Aleta Chavez MD PCP - General 08/24/23
--- OUTSIDE RECORDS SUMMARY | 2025-05-16 09:03 | XMS_ITS | Clinical Summary ---
Author Organization [facility] Address [address] [place] [phone] Phone Care Team Providers Care Feed Blender Name Role Phone Pcp, Unknown Primary Care [...] SCREENING (On ce After 26 Yrs) 2010 INFLUENZA VACCINE (#1) 2025 05/26/2016 COVID-19 VACCINE (2 - 2024-2 6 season) 2025 08/24/2021 HEPATITIS A VACCINES Aged Out No [...] topic Medical Devices Not on file Insurance [facility] [address] [address] [facility] Address: [address] [address] Care Teams Feed Blender Relationship Specialty Start Date End Date Pcp, Unknown PCP - General 04/05/21 Marvel Goetz MD Internal Medicine 04/05/21 Additional Source Comments The information contained in this document represents components of the legal health record. It is not the complete legal health record.[facility]
--- OUTSIDE RECORDS SUMMARY | 2025-05-16 09:03 | XMS_ITS | Clinical Summary ---
Author Organization [facility] Facility Address [address] [place] [address] Care Team Providers Care Auger Press Operator Name Role Phone Unavailable Primary Care Provider [...]
[2025-05-16 09:17] LABS: MANUAL DIFF FLAG NO
[2025-05-16 09:48] LABS: Hematocrit 44.9 % (42.0-52.0); Hemoglobin 15.7 g/dl (14.0-18.0); Imm Gran Abs Auto 0.06 X10*3/uL (0.00-0.03); Imm Gran Pct Auto 0.4 % (0.0-0.4); Lymphocytes Absolute Auto 2.0 X10*3/uL (1.2-4.9); Mean Corpuscular HGB Conc 35.0 g/dl (31.0-36.0); Mean Corpuscular Hemoglobin 29.2 pg (27.0-33.0); Mean Corpuscular Volume 83.5 fL (80.0-98.0); NRBC Abs Auto 0.000 X10*3/uL (0.0-0.012); NRBC Pct Auto 0.0 /100WBC (0.0-0.2); Platelet Count 217 X10*3/uL (160-400); Red Blood Count 5.38 X10*6/uL (4.60-5.80); White Blood Count 13.8 X10*3/uL (4.8-10.8)
[2025-05-16 10:01] LABS: Hemoglobin A1C 160.8474 umol/L; Total Hemoglobin (HGBA1C) 4176.0790 umol/L
[2025-05-16 10:32] LABS: Alanine Aminotransferase 42 U/L (0-40); Albumin Level 4.2 g/dL (3.5-5.0); Alkaline Phosphatase 99 U/L (39-117); Anion Gap 18 (12-20); Aspartate Amino Transferase 45 U/L (5-37); Blood Urea Nitrogen 12 mg/dL (9-16); Calcium 9.2 mg/dL (8.4-10.2); Carbon Dioxide 20 mmol/L (22-29); Chloride 106 mmol/L (96-108); Cholesterol 246 mg/dL (<200); Estimated Glomerular Filt Rate > 60; HDL Cholesterol 29 mg/dL (>40); Potassium 3.9 mmol/L (3.3-5.1); Sodium 140 mmol/L (135-145); Total Protein 7.3 g/dL (6.5-8.0); Triglycerides 1114 mg/dL (<150)
[2025-05-16 10:52] LABS: Free T4 (Free Thyroxine) 1.00 ng/dL (0.71-1.85); Thyroid Stimulating Hormone 2.56 uIU/mL (0.32-4.0)
== END 2025-05-16 09:00 | disposition home or self-care (01) ==
LOC: HO.LAB 08:59
PROVIDERS: Visit Provider Nurse Practitioner Family
DX: E78.5 Hyperlipidemia, unspecified (principal); F20.9 Schizophrenia, unspecified
CPT/HCPCS: 36415; 80053; 80061; 82306; 83036; 84436; 84439; 84443; 84480; 84481; 85025